=== PATIENT | male | born 1980 | race Caucasian/White ===

== ENCOUNTER 2021-11-28 12:58 | Emergency (ER) | payer MEDICAID, SELFPAY | END 2021-11-28 14:06 | disposition left against medical advice (07) | PROVIDERS: Emergency Provider Emergency Medicine | DX: F99 Mental disorder, not otherwise specified (principal) ==

== ENCOUNTER 2021-11-28 14:56 | Inpatient (IN) | payer MEDICAID, OTHER, SELFPAY ==
[2021-11-28 15:14] VITALS: BP 100/62; PULSE 93; RESP 18; TEMP 36.1; O2SAT 98; BMI 29.0
--- NOTE | 2021-11-28 15:41 | ED_ITS ---
HPI - Psych General Chief Complaint: Psychiatric Symptoms <Cinda Vines NP - Last Filed: 11/28/21 17:16> Stated Complaint: sucidal and needs meds <Cinda Vines NP - Last Filed: 11/28/21 17:16> Time Seen by Provider: 11/28/21 15:26 <Cinda Vines NP - Last Filed: 11/28/21 17:16> Source: patient <Cinda Vines NP - Last Filed: 11/28/21 17:16> Mode of arrival: ambulatory <Cinda Vines NP - Last Filed: 11/28/21 17:16> Limitations: no limitations <Cinda Vines NP - Last Filed: 11/28/21 17:16> History of Present Illness HPI Narrative: 41-year-old male with a history of PTSD, substance abuse, anxiety, depression here with reports of suicidal thoughts for the last 1 month. Patient denies any current plans. No homicidal ideations, hallucinations. Patient tells me that he has been binge drinking for the last 1 month drinking about 2-3 pt of hard liquor daily. His last drink was just prior to arrival. Patient also intermittently smoking crack. He denies any additional substance use. He is currently on methadone 120 mg daily and received his dose this morning. No physical complaints. Patient received the Ed Ed vaccine for COVID. <Cinda Vines NP - Last Filed: 11/28/21 17:16> Related Data Home Medications: Home Medications Medication Instructions Recorded Confirmed bupropion HCl 150 mg tablet,12 hr 150 mg PO BID 11/28/21 11/28/21 sustained-release clonidine HCl 0.2 mg tablet 0.2 mg PO BID 11/28/21 11/28/21 folic acid 1 mg tablet 1 mg PO DAILY 11/28/21 11/28/21 gabapentin 400 mg capsule 400 mg PO BEDTIME 11/28/21 11/28/21 pantoprazole 40 mg tablet,delayed 1 tab PO DAILY 11/28/21 11/28/21 release quetiapine 200 mg tablet 200 mg PO BEDTIME 11/28/21 11/28/21 thiamine HCl (vitamin B1) 100 mg 100 mg PO DAILY 11/28/21 11/28/21 tablet (Vitamin B-1) <Cinda Vines NP - Last Filed: 11/28/21 17:16> Allergies/Adverse Reactions: Allergies Allergy/AdvReac Type Severity Reaction Status Date / Time No Known Allergies Allergy Verified 11/28/21 20:05 <Cinda Vines NP - Last Filed: 11/28/21 17:16> Review of Systems Verdana 4l Review of Systems: Verdana 4d Yes all other systems are reviewed and are negative Verdana 4Il <Cnida Vines NP - Last Filed: 11/28/21 17:16> Verdana 4d Verdana 4l Constitutional: Verdana 4d Verdana 4d Constitutional: Verdana 4d Reports no additional constitutional complaints, Denies body ache(s), Denies chills, Denies fever(s), Denies headache(s) and Denies weakness Verdana 4Il <Cinda Vines NP - Last Filed: 11/28/21 17:16> VerdanaVerdana 4d Eyes: Eyes: Reports no additional eye complaints and Denies change in vision <Cinda Vines NP - Last Filed: 11/28/21 17:16> ENT: Reports system reviewed and no additional complaints, except as documented, Denies dizziness, Denies headache(s), Denies nasal congestion, Denies nasal discharge and Denies neck pain <Cinda Vines NP - Last Filed: 11/28/21 17:16> Cardiovascular: Cardiovascular: Reports no additional cardiovascular complaints, Denies chest pain, Denies leg edema and Denies dyspnea <Cinda Vines NP - Last Filed: 11/28/21 17:16> Respiratory: Respiratory: Reports no additional respiratory complaints, Denies cough and Denies dyspnea <Cinda Vines NP - Last Filed: 11/28/21 17:16> Gastrointestinal: Gastrointestinal: Reports no additional gastrointestinal complaints, Denies abdominal pain, Denies diarrhea, Denies nausea and Denies vomiting <Cinda Vines NP - Last Filed: 11/28/21 17:16> Genitourinary: Genitourinary: Denies urinary incontinence <Cinda Vines NP - Last Filed: 11/28/21 17:16> Musculoskeletal: Musculoskeletal: Reports no additional musculoskeletal complaints, Denies back pain, Denies arthralgias, Denies joint swelling, Denies neck pain, Denies numbness and Denies tingling <Cinda Vines NP - Last Filed: 11/28/21 17:16> Integumentary/Breasts: Skin/Breast: Reports system reviewed and no additional complaints, except as docu and Denies rash <Cnida Vines NP - Last Filed: 11/28/21 17:16> Neurologic: Reports system reviewed and no additional complaints, except as documented, Denies Abnormal speech present, Denies dizziness, Denies headache(s), Denies n umbness, Denies tingling and Denies weakness <Cinda Vines NP - Last Filed: 11/28/21 17:16> Psychiatric: Psychiatric: Reports depression and Reports suicidal ideation <Cinda Vines NP - Last Filed: 11/28/21 17:16> [facility] Past Medical History Attestation statement: The following information was validated with the patient. <Cinda Vines NP - Last Filed: 11/28/21 17:16> Source: old records reviewed and nursing notes reviewed <Cinda Vines NP - Last Filed: 11/28/21 17:16> Social History Social History: Social History Advance Directives: No Advance Directives Information Provided: No <Cinda Vines NP - Last Filed: 11/28/21 17:16> Physical Exam Verdana 4l Vital Signs: Verdana 4d Verdana 4d Vital Signs: Verdana 4d Verdana 4Bd Last Vital Signs Verdana 4d Energy Systems Engineer New 4d Energy Systems Engineer New 4d Temp 97.4 F 11/28/21 19:26 Energy Systems Engineer New 4d Pulse 67 11/28/21 19:26 Energy Systems Engineer New 4d Resp 16 11/28/21 19:26 BP 89/53 L 11/28/21 19:26 Pulse Ox 98 11/28/21 19:26 BMI result Body Mass Index 29.0 <Cinda Vines NP - Last Filed: 11/28/21 17:16> Vital Signs: Last Vital Signs Temp 97.4 F 11/28/21 19:26 Pulse 67 11/28/21 19:26 Resp 16 11/28/21 19:26 BP 89/53 L 11/28/21 19:26 Pulse Ox 98 11/28/21 19:26 BMI result Body Mass Index 29.0 <LIZZETTE Jacinto - Last Filed: 11/28/21 21:50> Const: General: cooperative, healthy appearing, comfortable and no acute distress <Cinda Vines NP - Last Filed: 11/28/21 17:16> Orientation/consciousness: patient oriented x3 <Cinda Vines NP - Last Filed: 11/28/21 17:16> Limitations: no limitations <Cinda Vines NP - Last Filed: 11/28/21 17:16> HENMT: Head: Yes normal to inspection <Cinda Vines NP - Last Filed: 11/28/21 17:16> Ears: hearing grossly normal bilaterally <Cinda Vines NP - Last Filed: 11/28/21 17:16> General nose exam: Normal external nose present <Cinda Vines NP - Last Filed: 11/28/21 17:16> Face and sinus: Yes normal facial exam <Cinda Vines NP - Last Filed: 11/28/21 17:16> Mouth: Normal oral and palatal mucosa present <Cinda Vines NP - Last Filed: 11/28/21 17:16> Throat: Yes posterior oropharynx normal <Cinda Vines NP - Last Filed: 11/28/21 17:16> Eyes: General: appearance normal, both eyes and all related structures <Cinda Vines NP - Last Filed: 11/28/21 17:16> Pupils: Equal, round and reactive pupils present <Cinda Vines NP - Last Filed: 11/28/21 17:16> Neck: Neck: Yes normal visual inspection <Cinda Vines NP - Last Filed: 11/28/21 17:16> Chest: Chest palpation & inspection: normal inspection of the chest <Cinda Vines NP - Last Filed: 11/28/21 17:16> Resp: Effort & Inspection: normal respiratory effort <Cinda Vines NP - Last Filed: 11/28/21 17:16> Auscultation: clear to auscultation bilaterally <Cinda Vines STRAIGHTENER HAND - Last Filed: 11/28/21 17:16> Cardio: Rate: regular rate <Cinda Vines STRAIGHTENER HAND - Last Filed: 11/28/21 17:16> Rhythm: regular rhythm <Cinda Vines NP - Last Filed: 11/28/21 17:16> Peripheral pulses: Peripheral pulses 2+ throughout <Cinda Vines NP - Last Filed: 11/28/21 17:16> GI: Inspection: Yes normal to inspection <Cinda Vines NP - Last Filed: 11/28/21 17:16> Palpation (GI): Soft to palpation and nontender <Cinda Vines STRAIGHTENER HAND - Last Filed: 11/28/21 17:16> Auscultation: normal bowel sounds <Cinda Vines NP - Last Filed: 11/28/21 17:16> Back/Spine/Pelvis: Thoracic/Lumbar Spine: thoracic and lumbar spine normal to inspection <Cinda Vines STRAIGHTENER HAND - Last Filed: 11/28/21 17:16> Skin: General skin exam: no rashes or lesions noted <Cinda Vines NP - Last Filed: 11/28/21 17:16> Neuro: General: patient oriented x3, no focal motor deficits and normal sensation to monofilament <Cinda Vines NP - Last Filed: 11/28/21 17:16> Cranial nerves: Yes CN's II-XII intact bilaterally and Yes Equal, round and reactive pupils present <Cinda Vines NP - Last Filed: 11/28/21 17:16> Cognition (Neuro): normal cognition <Cinda Vines NP - Last Filed: 11/28/21 17:16> Speech: No Abnormal speech present <Cinda Vines NP - Last Filed: 11/28/21 17:16> Gait exam (Neuro): Normal gait present <Cinda Vines NP - Last Filed: 11/28/21 17:16> Motor exam (neuro): 5/5 motor strength present throughout <Cinda Vines NP - Last Filed: 11/28/21 17:16> Extrem: General: Yes normal to inspection <Cinda Vines NP - Last Filed: 11/28/21 17:16> Course Course Course Narrative: 41-year-old male with a history of PTSD, anxiety, depression, substance abuse here with reports of suicidal thoughts without a plan. Patient has also been binge drinking for the last 1 month and intermittently using crack cocaine. No physical complaints. No concern for acute ingestion or trauma. Will check labs, drug screen, COVID screen. Obtain BHN evaluation 1800-Sign out to night team pending BHN evaluation. <Cinda Vines NP - Last Filed: 11/28/21 17:16> Reevaluation(s) Reevaluation #1: Patient was evaluated by [facility] and is now Section 12 inpatient bed search <LIZZETTE Jacinto - Last Filed: 11/28/21 21:50> Time: 21:50 <LIZZETTE Jacinto - Last Filed: 11/28/21 21:50> MDM - Psych Medical Records Attestation: I reviewed the patient's medical records. <Cinda Vines NP - Last Filed: 11/28/21 17:16> Lab Data Attestation: I reviewed the patient's lab results. <Cinda Vines NP - Last Filed: 11/28/21 17:16> Result diagrams: : 11/28/21 16:15 11/28/21 16:15 <Cinda Vines NP - Last Filed: 11/28/21 17:16> Labs: Lab Results 11/28/21 11/28/21 11/28/21 Range/Units 15:31 15:31 16:15 WBC 5.4 (4.8-10.8) X10*3/uL RBC 4.74 (4.60-5.80) X10*6/uL Hgb 14.6 (14.0-18.0) g/dl Hct 42.6 (42.0-52.0) % MCV 89.9 (80.0-98.0) fL MCH 30.8 (27.0-33.0) pg MCHC 34.3 (31.0-36.0) g/dl RDW 13.3 (11.0-16.0) % Plt Count 130 L (160-400) X10*3/uL MPV 11.2 (9.4-12.4) fL Immature Gran % 0.2 (0.0-0.4) % (Auto) Neut % (Auto) 51.1 (45-73) % Lymph % (Auto) 38.1 (20-40) % [place] % (Auto) 6.5 (2-11) % Eos % (Auto) 3.9 (0-4) % Baso % (Auto) 0.2 (0-2) % Lymph # (Auto) 2.1 (1.2-4.9) X10*3/uL [place] # (Auto) 0.4 (0.1-1.2) X10*3/uL Eos # (Auto) 0.2 (0.0-0.4) X10*3/uL Baso # (Auto) 0.0 (0.0-0.2) X10*3/uL Abs Immat Gran (auto) 0.01 (0.00-0.03) X10*3/uL Absolute Neuts (auto) 2.8 (2.0-8.3) x10*3/uL Absolute Nucleated 0.000 (0.0-0.012) RBC X10*3/uL Nucleated RBC % 0.0 (0.0-0.2) /100WBC (auto) Sodium (135-145) mmol/L Potassium (3.3-5.1) mmol/L Chloride (96-108) mmol/L Carbon Dioxide (22-29) mmol/L Anion Gap (12-20) BUN (9-16) mg/dL Creatinine (0.5-1.4) mg/dL Estim Creat Clear Calc Estimated GFR Random Glucose (60-115) mg/dL Calcium (8.4-10.2) mg/dL Total Bilirubin (0.0-1.0) mg/dL Direct Bilirubin (0.0-0.5) mg/dL AST (5-37) U/L ALT (0-40) U/L Alkaline Phosphatase (39-117) U/L Total Protein (6.5-8.0) g/dL Albumin (3.5-5.0) g/dL Urine Opiates Screen Not Detected (Not Detect) Urine Fentanyl Screen Not Detected (Not Detect) Ur Barbiturates Not Detected (Not Detect) Screen Ur Phencyclidine Scrn Not Detected (Not Detect) Ur Amphetamines Not Detected (Not Detect) Screen U Benzodiazepines Not Detected (Not Detect) Scrn Urine Cocaine Screen POSITIVE H (Not Detect) U Marijuana (THC) Not Detected (Not Detect) Screen Ethyl Alcohol mg/dL COVID-19 (HONG) Negative (Negative) COVID-19 Clin Com See Note 11/28/21 11/28/21 Range/Units 16:15 16:15 WBC (4.8-10.8) X10*3/uL RBC (4.60-5.80) X10*6/uL Hgb (14.0-18.0) g/dl Hct (42.0-52.0) % MCV (80.0-98.0) fL MCH (27.0-33.0) pg MCHC (31.0-36.0) g/dl RDW (11.0-16.0) % Plt Count (160-400) X10*3/uL MPV (9.4-12.4) fL Immature Gran % (Auto) (0.0-0.4) % Neut % (Auto) (45-73) % Lymph % (Auto) (20-40) % [place] % (Auto) (2-11) % Eos % (Auto) (0-4) % Baso % (Auto) (0-2) % Lymph # (Auto) (1.2-4.9) X10*3/uL [place] # (Auto) (0.1-1.2) X10*3/uL Eos # (Auto) (0.0-0.4) X10*3/uL Baso # (Auto) (0.0-0.2) X10*3/uL Abs Immat Gran (auto) (0.00-0.03) X10*3/uL Absolute Neuts (auto) (2.0-8.3) x10*3/uL Absolute Nucleated RBC (0.0-0.012) X10*3/uL Nucleated RBC % (auto) (0.0-0.2) /100WBC Sodium 140 (135-145) mmol/L Potassium 4.3 (3.3-5.1) mmol/L Chloride 109 H (96-108) mmol/L Carbon Dioxide 21 L (22-29) mmol/L Anion Gap 14 (12-20) BUN 10 (9-16) mg/dL Creatinine 1.13 (0.5-1.4) mg/dL Estim Creat Clear Calc 87.1 Estimated GFR > 60 Random Glucose 89 (60-115) mg/dL Calcium 9.2 (8.4-10.2) mg/dL Total Bilirubin 0.6 (0.0-1.0) mg/dL Direct Bilirubin 0.3 (0.0-0.5) mg/dL AST 118 H (5-37) U/L ALT 150 H (0-40) U/L Alkaline Phosphatase 94 (39-117) U/L Total Protein 8.4 H (6.5-8.0) g/dL Albumin 4.1 (3.5-5.0) g/dL Urine Opiates Screen (Not Detect) Urine Fentanyl Screen (Not Detect) Ur Barbiturates Screen (Not Detect) Ur Phencyclidine Scrn (Not Detect) Ur Amphetamines Screen (Not Detect) U Benzodiazepines Scrn (Not Detect) Urine Cocaine Screen (Not Detect) U Marijuana (THC) Screen (Not Detect) Ethyl Alcohol 163 mg/dL COVID-19 (HONG) (Negative) COVID-19 Clin Com <Cinda Vines NP - Last Filed: 11/28/21 17:16> Lab Results 11/28/21 11/28/21 11/28/21 Range/Units 15:31 15:31 16:15 WBC 5.4 (4.8-10.8) X10*3/uL RBC 4.74 (4.60-5.80) X10*6/uL Hgb 14.6 (14.0-18.0) g/dl Hct 42.6 (42.0-52.0) % MCV 89.9 (80.0-98.0) fL MCH 30.8 (27.0-33.0) pg MCHC 34.3 (31.0-36.0) g/dl RDW 13.3 (11.0-16.0) % Plt Count 130 L (160-400) X10*3/uL MPV 11.2 (9.4-12.4) fL Immature Gran % 0.2 (0.0-0.4) % (Auto) Neut % (Auto) 51.1 (45-73) % Lymph % (Auto) 38.1 (20-40) % [place] % (Auto) 6.5 (2-11) % Eos % (Auto) 3.9 (0-4) % Baso % (Auto) 0.2 (0-2) % Lymph # (Auto) 2.1 (1.2-4.9) X10*3/uL [place] # (Auto) 0.4 (0.1-1.2) X10*3/uL Eos # (Auto) 0.2 (0.0-0.4) X10*3/uL Baso # (Auto) 0.0 (0.0-0.2) X10*3/uL Abs Immat Gran (auto) 0.01 (0.00-0.03) X10*3/uL Absolute Neuts (auto) 2.8 (2.0-8.3) x10*3/uL Absolute Nucleated 0.000 (0.0-0.012) RBC X10*3/uL Nucleated RBC % 0.0 (0.0-0.2) /100WBC (auto) Sodium (135-145) mmol/L Potassium (3.3-5.1) mmol/L Chloride (96-108) mmol/L Carbon Dioxide (22-29) mmol/L Anion Gap (12-20) BUN (9-16) mg/dL Creatinine (0.5-1.4) mg/dL Estim Creat Clear Calc Estimated GFR Random Glucose (60-115) mg/dL Calcium (8.4-10.2) mg/dL Total Bilirubin (0.0-1.0) mg/dL Direct Bilirubin (0.0-0.5) mg/dL AST (5-37) U/L ALT (0-40) U/L Alkaline Phosphatase (39-117) U/L Total Protein (6.5-8.0) g/dL Albumin (3.5-5.0) g/dL Urine Opiates Screen Not Detected (Not Detect) Urine Fentanyl Screen Not Detected (Not Detect) Ur Barbiturates Not Detected (Not Detect) Screen Ur Phencyclidine Scrn Not Detected (Not Detect) Ur Amphetamines Not Detected (Not Detect) Screen U Benzodiazepines Not Detected (Not Detect) Scrn Urine Cocaine Screen POSITIVE H (Not Detect) U Marijuana (THC) Not Detected (Not Detect) Screen Ethyl Alcohol mg/dL COVID-19 (HONG) Negative (Negative) COVID-19 Clin Com See Note 11/28/21 11/28/21 Range/Units 16:15 16:15 WBC (4.8-10.8) X10*3/uL RBC (4.60-5.80) X10*6/uL Hgb (14.0-18.0) g/dl Hct (42.0-52.0) % MCV (80.0-98.0) fL MCH (27.0-33.0) pg MCHC (31.0-36.0) g/dl RDW (11.0-16.0) % Plt Count (160-400) X10*3/uL MPV (9.4-12.4) fL Immature Gran % (Auto) (0.0-0.4) % Neut % (Auto) (45-73) % Lymph % (Auto) (20-40) % [place] % (Auto) (2-11) % Eos % (Auto) (0-4) % Baso % (Auto) (0-2) % Lymph # (Auto) (1.2-4.9) X10*3/uL [place] # (Auto) (0.1-1.2) X10*3/uL Eos # (Auto) (0.0-0.4) X10*3/uL Baso # (Auto) (0.0-0.2) X10*3/uL Abs Immat Gran (auto) (0.00-0.03) X10*3/uL Absolute Neuts (auto) (2.0-8.3) x10*3/uL Absolute Nucleated RBC (0.0-0.012) X10*3/uL Nucleated RBC % (auto) (0.0-0.2) /100WBC Sodium 140 (135-145) mmol/L Potassium 4.3 (3.3-5.1) mmol/L Chloride 109 H (96-108) mmol/L Carbon Dioxide 21 L (22-29) mmol/L Anion Gap 14 (12-20) BUN 10 (9-16) mg/dL Creatinine 1.13 (0.5-1.4) mg/dL Estim Creat Clear Calc 87.1 Estimated GFR > 60 Random Glucose 89 (60-115) mg/dL Calcium 9.2 (8.4-10.2) mg/dL Total Bilirubin 0.6 (0.0-1.0) mg/dL Direct Bilirubin 0.3 (0.0-0.5) mg/dL AST 118 H (5-37) U/L ALT 150 H (0-40) U/L Alkaline Phosphatase 94 (39-117) U/L Total Protein 8.4 H (6.5-8.0) g/dL Albumin 4.1 (3.5-5.0) g/dL Urine Opiates Screen (Not Detect) Urine Fentanyl Screen (Not Detect) Ur Barbiturates Screen (Not Detect) Ur Phencyclidine Scrn (Not Detect) Ur Amphetamines Screen (Not Detect) U Benzodiazepines Scrn (Not Detect) Urine Cocaine Screen (Not Detect) U Marijuana (THC) Screen (Not Detect) Ethyl Alcohol 163 mg/dL COVID-19 (HONG) (Negative) COVID-19 Clin Com <LIZZETTE Jacinto - Last Filed: 11/28/21 21:50> Discharge Plan Discharge Clinical Impression: Suicidal ideation <Cinda Vines NP - Last Filed: 11/28/21 17:16> Patient Disposition: Still a Patient <Cinda Vines NP - Last Filed: 11/28/21 17:16> Prescriptions: No Action bupropion HCl 150 mg tablet sustained-release 12 hr 150 mg PO BID 0RF gabapentin 400 mg capsule 400 mg PO BEDTIME 0RF quetiapine 200 mg tablet 200 mg PO BEDTIME 0RF thiamine HCl (vitamin B1) [Vitamin B-1] 100 mg tablet 100 mg PO DAILY 0RF clonidine HCl 0.2 mg tablet 0.2 mg PO BID 0RF pantoprazole 40 mg tablet,delayed release (DR/EC) 1 tab PO DAILY 0RF folic acid 1 mg tablet 1 mg PO DAILY 0RF <Cinda Vines, STRAIGHTENER HAND - Last Filed: 11/28/21 17:16>
[2021-11-28 15:53] LABS: Amphetamine Screen Urine Not Detected (Not Detect); Barbiturates, Urine Not Detected (Not Detect); Benzodiazepines Screen Urine Not Detected (Not Detect); Cannabinoid Screen Urine Not Detected (Not Detect); Cocaine Screen Urine POSITIVE (Not Detect); Fentanyl, urine Not Detected (Not Detect); Opiate Screen Urine Not Detected (Not Detect); Phencyclidine Screen Urine Not Detected (Not Detect)
[2021-11-28 15:56] LABS: COVID-19 Test Negative (Negative)
[2021-11-28 16:29] LABS: Imm Gran Abs Auto 0.01 X10*3/uL (0.00-0.03); Imm Gran Pct Auto 0.2 % (0.0-0.4); Monocytes Percent Auto 6.5 % (2-11); PLT CLUMP 1; Red Cell Distribution Width 13.3 % (11.0-16.0); SCAN SMEAR FLAG 1
[2021-11-28 16:31] LABS: Basophils Percent Auto 0.2 % (0-2); Eosinophils Absolute Auto 0.2 X10*3/uL (0.0-0.4); Eosinophils Percent Auto 3.9 % (0-4); Hematocrit 42.6 % (42.0-52.0); Hemoglobin 14.6 g/dl (14.0-18.0); Lymphocytes Absolute Auto 2.1 X10*3/uL (1.2-4.9); Lymphocytes Percent Auto 38.1 % (20-40); Mean Corpuscular HGB Conc 34.3 g/dl (31.0-36.0); Mean Corpuscular Hemoglobin 30.8 pg (27.0-33.0); Mean Corpuscular Volume 89.9 fL (80.0-98.0); Mean Platelet Volume 11.2 fL (9.4-12.4); Monocytes Absolute Auto 0.4 X10*3/uL (0.1-1.2); Neutrophils Absolute Auto 2.8 x10*3/uL (2.0-8.3); Neutrophils Percent Auto 51.1 % (45-73); Red Blood Count 4.74 X10*6/uL (4.60-5.80)
[2021-11-28 16:37] LABS: Ethanol 163 mg/dL
[2021-11-28 16:42] LABS: Alanine Aminotransferase 150 U/L (0-40); Albumin Level 4.1 g/dL (3.5-5.0); Alkaline Phosphatase 94 U/L (39-117); Anion Gap 14 (12-20); Aspartate Amino Transferase 118 U/L (5-37); Bilirubin Direct 0.3 mg/dL (0.0-0.5); Bilirubin Total 0.6 mg/dL (0.0-1.0); Blood Urea Nitrogen 10 mg/dL (9-16); Calcium 9.2 mg/dL (8.4-10.2); Carbon Dioxide 21 mmol/L (22-29); Chloride 109 mmol/L (96-108); Creatinine Clr Calc Pharmacy 87.1; Estimated Glomerular Filt Rate > 60; Glucose Random 89 mg/dL (60-115); Potassium 4.3 mmol/L (3.3-5.1); Sodium 140 mmol/L (135-145); Total Protein 8.4 g/dL (6.5-8.0)
[2021-11-28 16:49] LABS: MANUAL DIFF FLAG NO; Platelet Count 130 X10*3/uL (160-400); White Blood Count 5.4 X10*3/uL (4.8-10.8)
[2021-11-28 19:26] VITALS: BP 89/53; PULSE 67; RESP 16; TEMP 36.3; O2SAT 98
[2021-11-28 23:31] VITALS: BP 81/60; PULSE 77; RESP 16; O2SAT 97
[2021-11-28 23:41] VITALS: BP 98/60; PULSE 68
[2021-11-28] MEDS: LORazepam 1 MG TABLET PO (23:48)
--- NOTE | 2021-11-29 | ECG_ITS ---
Test Reason : medical clearance Blood Pressure : / mmHG Vent. Rate : 050 BPM Atrial Rate : 050 BPM P-R Int : 162 ms QRS Dur : 120 ms QT Int : 450 ms P-R-T Axes : 065 -02 020 degrees QTc Int : 410 ms Sinus bradycardia Non-specific intra-ventricular conduction delay Borderline ECG No previous ECGs available Referred By: Nayan Kebede Electronically Signed By:KATELYNN LEMOS
[2021-11-29 01:18] VITALS: BP 102/58; PULSE 70; RESP 18
[2021-11-29] MEDS: LORazepam 1 MG TABLET PO ×3 (01:51→13:12)
--- NOTE | 2021-11-29 05:22 | PC.NURSE ---
Patient is currently sleeping, sleeping since 129, no distress observed/reported, Ativan 1 mg administered x2 with + effect, behavior appropriate and cooperative, medication compliant, patient's disposition per [facility] is section 12 inpatient bed search, will continue to monitor.
--- NOTE | 2021-11-29 07:08 | PC.NURSE ---
patient appears to remain asleep at present respirations appear to be unlabored patient appears in no distress
[2021-11-29 08:02] VITALS: BP 113/81; PULSE 70; RESP 17; TEMP 36.6; O2SAT 98
[2021-11-29] MEDS: buPROPion HCl XL 300 MG TAB.ER.24H PO (11:01)
[2021-11-29] MEDS: cloNIDine HCL 0.2 MG TABLET PO ×2 (11:01→21:01)
[2021-11-29] MEDS: Thiamine HCL 100 MG TABLET PO (11:01)
[2021-11-29] MEDS: Gabapentin 400 MG CAPSULE 800 MG PO ×3 (11:01→21:02)
[2021-11-29] MEDS: methADONE HCl 20 MG/2 ML ORAL.CONC 120 MG PO (11:01)
[2021-11-29 11:16] LABS: COVID-19 Test Negative (Negative)
[2021-11-29] MEDS: Ibuprofen 600 MG TABLET PO (13:12)
--- NOTE | 2021-11-29 17:12 | P.HPPS_ITS ---
HPI Date of Service: 11/29/21 Chief Complaint: SI,etoh use DO Sources of Information: patient interviewed, chart reviewed and crisis/core team assessment reviewed HPI Subjective Notes: Lira Warning and Conditional Voluntary Healthcare Proxy: No Guardianship: No Medical Problems Affecting Mental Status: No Narrative: Norbert is a 41 y.o. male who carries a dx of PTSD, Alcohol Use disorder, cocaine/ stimulant use disorder, IWONA, and MDD, recurrent. He presented to [facility] on 11/28/21 due to SI x 1 month with plan to jump into traffic and binge drinking x 1 month. Patient also intermittently smoking crack cocaine. Pt is on methadone maintenance 120 mg daily and received his dose prior to arrival to [facility]. Otherwise, pt has been non-adherent with psychiatric medications.? I evaluated the pt this morning and upon interview he reports he likes his current medication regimen and denies experiencing seizures on wellbutrin. However, he does reports a hx of withdrawal seizures from alcohol, last 7-8 mo ago. Says his medications ?are helping for meds as long as I stay on them.? He endorses sx of withdrawal, i.e. nausea. Says his sleep has been ?horrible,? however this is a longstanding issue, has hx of nightmares. Energy is low. Mood is ?fine.? He continues to endorse passive SI, but denies plan or intent upon inquiry today. Somewhat eating. Was taking ensure. No psych providers, started using. 18 mo sober, 21 years ago. I need sleep. Feeling safe. Denies A/VH.? Past Psychiatric History: -Hx of IPLOC at [facility] in [place] 6 months ago due to SI. Reports hx of SA by cutting wrist. -Past meds: vyvanse Medical Evaluation Reviewed: Yes PMFSH Social History: -Currently homeless Substance History: -ETOH: reports he has been drinking 2-3 pints of hard liquor daily (at another time stated he was drinking 20 nips daily), last drink prior to arrival to [facility] on 11/28/21. BAL 163. -Cocaine: last used half a gram daily x one month and smoking crack cocaine. -Crystal Meth: used a ?quarter? Trauma History: -Per chart, hx of PTSD from incarceration. Diagnostics Vital Signs (24Hr): Vital Signs - 24 hr 11/28/21 19:26 11/28/21 23:31 11/28/21 23:41 Temperature 97.4 F Pulse Rate 67 77 68 Respiratory Rate 16 16 Blood Pressure 89/53 L 81/60 L 98/60 Pulse Oximetry 98 97 11/29/21 01:18 11/29/21 08:02 Temperature 97.9 F Pulse Rate 70 70 Respiratory Rate 18 17 Blood Pressure 102/58 L 113/81 Pulse Oximetry 98 BMI result Verdana 4 Body Mass Index Verdana 4 29.0 Verdana 4 Verdana 4 Labs Results: 11/28/21 16:15 11/28/21 16:15 Labs: Laboratory Results - last 48 hr 11/28/21 11/28/21 11/28/21 15:31 15:31 16:15 WBC 5.4 RBC 4.74 Hgb 14.6 Hct 42.6 MCV 89.9 MCH 30.8 MCHC 34.3 RDW 13.3 Plt Count 130 L MPV 11.2 Immature Gran % (Auto) 0.2 Neut % (Auto) 51.1 Lymph % (Auto) 38.1 [place] % (Auto) 6.5 Eos % (Auto) 3.9 Baso % (Auto) 0.2 Lymph # (Auto) 2.1 [place] # (Auto) 0.4 Eos # (Auto) 0.2 Baso # (Auto) 0.0 Abs Immat Gran (auto) 0.01 Absolute Neuts (auto) 2.8 Absolute Nucleated RBC 0.000 Nucleated RBC % (auto) 0.0 Sodium Potassium Chloride Carbon Dioxide Anion Gap BUN Creatinine Estim Creat Clear Calc Estimated GFR Random Glucose Calcium Total Bilirubin Direct Bilirubin AST ALT Alkaline Phosphatase Total Protein Albumin Urine Opiates Screen Not Detected Urine Fentanyl Screen Not Detected Ur Barbiturates Screen Not Detected Ur Phencyclidine Scrn Not Detected Ur Amphetamines Screen Not Detected U Benzodiazepines Scrn Not Detected Urine Cocaine Screen POSITIVE H U Marijuana (THC) Screen Not Detected Ethyl Alcohol COVID-19 (HONG) Negative COVID-19 Clin Com See Note 11/28/21 11/28/21 11/29/21 16:15 16:15 10:52 WBC RBC Hgb Hct MCV MCH MCHC RDW Plt Count MPV Immature Gran % (Auto) Neut % (Auto) Lymph % (Auto) [place] % (Auto) Eos % (Auto) Baso % (Auto) Lymph # (Auto) [place] # (Auto) Eos # (Auto) Baso # (Auto) Abs Immat Gran (auto) Absolute Neuts (auto) Absolute Nucleated RBC Nucleated RBC % (auto) Sodium 140 Potassium 4.3 Chloride 109 H Carbon Dioxide 21 L Anion Gap 14 BUN 10 Creatinine 1.13 Estim Creat Clear Calc 87.1 Estimated GFR > 60 Random Glucose 89 Calcium 9.2 Total Bilirubin 0.6 Direct Bilirubin 0.3 AST 118 H ALT 150 H Alkaline Phosphatase 94 Total Protein 8.4 H Albumin 4.1 Urine Opiates Screen Urine Fentanyl Screen Ur Barbiturates Screen Ur Phencyclidine Scrn Ur Amphetamines Screen U Benzodiazepines Scrn Urine Cocaine Screen U Marijuana (THC) Screen Ethyl Alcohol 163 COVID-19 (HONG) Negative COVID-19 Clin Com See Note Meds/Allergies Meds Home Medications Acetaminophen (Acetaminophen 325 Mg Tablet) 650 mg PO Q6H PRN PRN Reason: Headache/Pain Mild Scale (1-3) Al Hydroxide/Mg Hydroxide (Magnesium Hydrox/Alum Hydrox 30 Ml Oral.Susp) 30 ml PO Q6H PRN PRN Reason: Heartburn/Nausea Bupropion HCl (Bupropion Hcl Xl 300 Mg Tab.Er.24h) 300 mg PO DAILY [facility] Last Admin: 11/30/21 08:02 Dose: 300 mg Documented by: Clonidine HCl (Clonidine Hcl 0.2 Mg Tablet) 0.2 mg PO BID [facility]; Protocol Last Admin: 12/01/21 00:41 Dose: 0.2 mg Documented by: Gabapentin (Gabapentin 400 Mg Capsule) 800 mg PO TID [facility] Last Admin: 12/01/21 00:41 Dose: 800 mg Documented by: Hydroxyzine HCl (Hydroxyzine Hcl 25 Mg Tablet) 25 mg PO Q6H PRN PRN Reason: Anxiety Lorazepam (Lorazepam 1 Mg Tablet) 1 mg PO Q6H PRN PRN Reason: Alcohol Withdrawal Last Admin: 12/01/21 04:38 Dose: 1 mg Documented by: Magnesium Hydroxide (Milk Of Magnesia 30 Ml Oral.Susp) 30 ml PO DAILY PRN PRN Reason: Constipation Methadone HCl (Methadone Hcl 20 Mg/2 Ml Oral.Conc) 120 mg PO DAILY [facility] Last Admin: 11/30/21 08:02 Dose: 120 mg Documented by: Ondansetron HCl (Ondansetron Odt 8 Mg Tab.Rapdis) 8 mg TRANSLINGU Q8H PRN PRN Reason: nausea Quetiapine Fumarate (Quetiapine Fumarate 200 Mg Tablet) 200 mg PO BEDTIME [facility] Last Admin: 12/01/21 00:40 Dose: 200 mg Documented by: Thiamine HCl (Thiamine Hcl 100 Mg Tablet) 100 mg PO DAILY [facility] Last Admin: 11/30/21 08:02 Dose: 100 mg Documented by: Trazodone HCl (Trazodone Hcl 50 Mg Tablet) 50 mg PO BEDTIME PRN PRN Reason: Insomnia Last Admin: 11/29/21 21:00 Dose: 50 mg Documented by: Allergies Allergies Allergy/AdvReac Type Severity Reaction Status Date / Time No Known Allergies Allergy Verified 11/28/21 20:05 Mental Status Exam Mental Status Exam Narrative: A&O. Overweight, in hospital attire. Poor eye contact, inattentive. No Tics or Tremors. No abnormal involuntary movements. Calm, cooperative, somewhat diffi cult to engage in meaningful conversation, as pt is in withdrawal and somnolent. Non-pressured speech, spontaneous with regular rate and rhythm, normal volume and prosody. No prolonged speech latency or dysarthria. Mood is ?depressed,? affect is blunted. Endorses SI without plan or intent, denies SIB/HI upon inquiry. Denies A/VH or delusional thought content. Thoughts are concrete, linear. No known cognitive or memory impairment. Insight/ Judgment limited. Assessment & Plan Assessment & Plan (1) Alcohol use disorder, moderate, dependence: Status: Acute Code(s): F10.20 - Alcohol dependence, uncomplicated (2) Cocaine use disorder, moderate, dependence: Status: Acute Code(s): F14.20 - Cocaine dependence, uncomplicated (3) MDD (major depressive disorder), recurrent episode, moderate: Status: Acute Code(s): F33.1 - Major depressive disorder, recurrent, moderate Plan Norbert is a 41 y.o. male who carries a dx of PTSD, Alcohol Use disorder, cocaine/ stimulant use disorder, IWONA, and MDD, recurrent. He recently has been abusing crystal meth, crack cocaine, and alcohol. Pt is in withdrawal, 2nd day, has sx of nausea and poor sleep. He re-started OP psych med regimen in the ED and reports positive benefit on medication. Plan: Continue on alcohol withdrawal protocol, 2nd day, will change ativan order to 2 mg Q6H for CIWA >8. Will start zofran PRN for nausea. He also asks for ensure with his meals. Pt asks for an increase in wellbutrin, as he reports positive benefit on this medication for sx of depression (on 150 mg SR BID at home) and denies hx of seizures on it. Will increase to 300 mg XL QAM and 150 mg XL Qnoon, as pt reports he does better with BID dosing.? Monitor response to medications. Monitor for safety in the milieu. Discharge on stabilization. Patient seen. Chart reviewed. Discussed with team. Obtain collateral contact info?as needed Reason for continued inpatient stay Substantial Risk for: harm to self, rapid decompensation and med/psych decompen sation
[2021-11-29] MEDS: LORazepam 1 MG TABLET 2 MG PO (17:36)
[2021-11-29 21:00] VITALS: BP 120/60; PULSE 75; RESP 14; TEMP 36.4; O2SAT 96
[2021-11-29] MEDS: QUEtiapine Fumarate 200 MG TABLET PO (21:00)
[2021-11-29] MEDS: traZODone HCL 50 MG TABLET PO (21:00)
--- NOTE | 2021-11-30 00:59 | PC.NURSE ---
Patient is a single, 41 year old Green[place]ic speaking, male, admitted as a CV admission to M[facility], 11/29/21 at 1626, from the [facility] and placed on 15 minute safety checks. His admitting diagnosis is Opioid Use Disorder severe and Major Depressive Disorder, single episode. He is currently being monitored for ETOH withdrawal. His BAL in the ED was 163 11/28/21. He was medically cleared, evaluated by [facility] and deemed in need of IPLOC secondary to the patient voicing SI to overdose on heroin or run into traffic. Patient had reported not being compliant with his medications and having severe depression with SI x one month. He is not known to [facility] but does admit to treatment in other facilities, locations unknown. Once the patient arrived on M5 he stated that he didn't feel good and was given prn medications for his ETOH withdrawals and allowed to sleep. Patient did not sign any legals, releases, safety tool or treatment plan. He denied any SI, HI AH or VH. Patient slept, ate dinner, slept and woke up for HS medications. He was polite but slightly irritable, physically hand and arm tremors noted by this singer songwriter. CIWA scale initiated. Patient in no apparent distress at the end of second shift. Report passed on to third shift.
[2021-11-30 06:00] VITALS: BP 115/56; PULSE 66; RESP 18; TEMP 36.9; O2SAT 96
[2021-11-30] MEDS: LORazepam 1 MG TABLET 2 MG PO ×2 (06:30→08:59)
[2021-11-30] MEDS: cloNIDine HCL 0.2 MG TABLET PO (08:02)
[2021-11-30] MEDS: Thiamine HCL 100 MG TABLET PO (08:02)
[2021-11-30] MEDS: methADONE HCl 20 MG/2 ML ORAL.CONC 120 MG PO (08:02)
[2021-11-30] MEDS: Gabapentin 400 MG CAPSULE 800 MG PO ×2 (08:02→15:01)
[2021-11-30] MEDS: buPROPion HCl XL 300 MG TAB.ER.24H PO (08:02)
[2021-11-30 08:03] VITALS: BP 113/59; PULSE 94
[2021-11-30] MEDS: buPROPion HCl XL 150 MG TAB.ER.24H PO (12:30)
--- NOTE | 2021-11-30 13:24 | P.PNPSI_ITS ---
Subjective Subjective Date of Service: 11/30/21 Reason For Visit: SI,etoh use DO Subjective Notes: Conditional Voluntary Interim History: Pt very somnolent, minimally cooperative in interview due to sedation. Pt reports feeling depressed, no hx of VH/AH. He reports sleeping well with seroquel. He reports using cocaine, alcohol, not able to quantify. He reports hx of seizures but would not elaborate as to whether seizures occurred in setting of alcohol withdrawal or cocaine. He is on wellbutrin briefly discussed risks of lower seizure threshole with wellbutrin. interview limited due to sedation. Medication Compliance: Yes Side effects from medications: No Review of Systems Review of Systems Yes all other systems are reviewed and are negative Constitutional: Reports no additional constitutional complaints, Denies body ache(s), Denies chills, Denies fever(s), Denies headache(s) and Denies weakness Eyes: Reports no additional eye complaints and Denies change in vision Reports system reviewed and no additional complaints, except as documented, Denies dizziness, Denies headache(s), Denies nasal congestion, Denies nasal discharge and Denies neck pain Cardiovascular: Reports no additional cardiovascular complaints, Denies chest pain, Denies leg edema and Denies dyspnea Respiratory: Reports no additional respiratory complaints, Denies cough and Denies dyspnea Gastrointestinal: Reports no additional gastrointestinal complaints, Denies abdominal pain, Denies diarrhea, Denies nausea and Denies vomiting Genitourinary: Denies urinary incontinence Musculoskeletal: Reports no additional musculoskeletal complaints, Denies back pain, Denies arthralgias, Denies joint swelling, Denies neck pain, Denies numbness and Denies tingling Skin/Breast: Reports system reviewed and no additional complaints, except as docu and Denies rash Reports system reviewed and no additional complaints, except as documented, Denies Abnormal speech present, Denies dizziness, Denies headache(s), Denies numbness, Denies tingling and Denies weakness Psychiatric: Reports depression and Reports suicidal ideation Mental Status Exam Mental Status Exam Narrative: Appearance: casually groomed, fair hygiene in NAD Behavior:somnolent psychomotor:retardation noted Speech:mumble at times due to sedation, minimally spontaneous, delayed response rate/soft tone Thought process:mostly linear, lost train of thought due to sedation Thought content:feeling depressed, no signs of psychosis Mood: depressed Affect: sedated SI:passive HI:none VH/AH:none Delusions:none Insight/judgment:poor x 2. Memory/cog: alert, oriented x 4. not formally tested. Diagnostics Vital Signs (24Hr): Vital Signs - 24 hr 11/29/21 21:00 11/30/21 06:00 11/30/21 08:03 Temperature 97.6 F 98.4 F Pulse Rate 75 66 94 Respiratory Rate 14 18 Blood Pressure 120/60 115/56 L 113/59 L Pulse Oximetry 96 96 BMI result Verdana 4 Body Mass Index Verdana 4 29.0 Verdana 4 Verdana 4 Labs Results: 11/28/21 16:15 11/28/21 16:15 Labs: Laboratory Results - last 48 hr 11/28/21 11/28/21 11/28/21 15:31 15:31 16:15 WBC 5.4 RBC 4.74 Hgb 14.6 Hct 42.6 MCV 89.9 MCH 30.8 MCHC 34.3 RDW 13.3 Plt Count 130 L MPV 11.2 Immature Gran % (Auto) 0.2 Neut % (Auto) 51.1 Lymph % (Auto) 38.1 [place] % (Auto) 6.5 Eos % (Auto) 3.9 Baso % (Auto) 0.2 Lymph # (Auto) 2.1 [place] # (Auto) 0.4 Eos # (Auto) 0.2 Baso # (Auto) 0.0 Abs Immat Gran (auto) 0.01 Absolute Neuts (auto) 2.8 Absolute Nucleated RBC 0.000 Nucleated RBC % (auto) 0.0 Sodium Potassium Chloride Carbon Dioxide Anion Gap BUN Creatinine Estim Creat Clear Calc Estimated GFR Random Glucose Calcium Total Bilirubin Direct Bilirubin AST ALT Alkaline Phosphatase Total Protein Albumin Urine Opiates Screen Not Detected Urine Fentanyl Screen Not Detected Ur Barbiturates Screen Not Detected Ur Phencyclidine Scrn Not Detected Ur Amphetamines Screen Not Detected U Benzodiazepines Scrn Not Detected Urine Cocaine Screen POSITIVE H U Marijuana (THC) Screen Not Detected Ethyl Alcohol COVID-19 (HONG) Negative COVID-19 Clin Com See Note 11/28/21 11/28/21 11/29/21 16:15 16:15 10:52 WBC RBC Hgb Hct MCV MCH MCHC RDW Plt Count MPV Immature Gran % (Auto) Neut % (Auto) Lymph % (Auto) [place] % (Auto) Eos % (Auto) Baso % (Auto) Lymph # (Auto) [place] # (Auto) Eos # (Auto) Baso # (Auto) Abs Immat Gran (auto) Absolute Neuts (auto) Absolute Nucleated RBC Nucleated RBC % (auto) Sodium 140 Potassium 4.3 Chloride 109 H Carbon Dioxide 21 L Anion Gap 14 BUN 10 Creatinine 1.13 Estim Creat Clear Calc 87.1 Estimated GFR > 60 Random Glucose 89 Calcium 9.2 Total Bilirubin 0.6 Direct Bilirubin 0.3 AST 118 H ALT 150 H Alkaline Phosphatase 94 Total Protein 8.4 H Albumin 4.1 Urine Opiates Screen Urine Fentanyl Screen Ur Barbiturates Screen Ur Phencyclidine Scrn Ur Amphetamines Screen U Benzodiazepines Scrn Urine Cocaine Screen U Marijuana (THC) Screen Ethyl Alcohol 163 COVID-19 (HONG) Negative COVID-19 Clin Com See Note Medications Medications Current Medications Acetaminophen (Acetaminophen 325 Mg Tablet) 650 mg PO Q6H PRN PRN Reason: Headache/Pain Mild Scale (1-3) Al Hydroxide/Mg Hydroxide (Magnesium Hydrox/Alum Hydrox 30 Ml Oral.Susp) 30 ml PO Q6H PRN PRN Reason: Heartburn/Nausea Bupropion HCl (Bupropion Hcl Xl 300 Mg Tab.Er.24h) 300 mg PO DAILY [facility] Last Admin: 11/30/21 08:02 Dose: 300 mg Documented by: Bupropion HCl (Bupropion Hcl Xl 150 Mg Tab.Er.24h) 150 mg PO DAILY@1300 [facility] Last Admin: 11/30/21 12:30 Dose: 150 mg Documented by: Clonidine HCl (Clonidine Hcl 0.2 Mg Tablet) 0.2 mg PO BID [facility]; Protocol Last Admin: 11/30/21 08:02 Dose: 0.2 mg Documented by: Gabapentin (Gabapentin 400 Mg Capsule) 800 mg PO TID [facility] Last Admin: 11/30/21 08:02 Dose: 800 mg Documented by: Hydroxyzine HCl (Hydroxyzine Hcl 25 Mg Tablet) 25 mg PO Q6H PRN PRN Reason: Anxiety Lorazepam (Lorazepam 1 Mg Tablet) 2 mg PO Q6H PRN PRN Reason: Alcohol Withdrawal Last Admin: 11/30/21 08:59 Dose: 2 mg Documented by: Magnesium Hydroxide (Milk Of Magnesia 30 Ml Oral.Susp) 30 ml PO DAILY PRN PRN Reason: Constipation Methadone HCl (Methadone Hcl 20 Mg/2 Ml Oral.Conc) 120 mg PO DAILY [facility] Last Admin: 11/30/21 08:02 Dose: 120 mg Documented by: Ondansetron HCl (Ondansetron Odt 8 Mg Tab.Rapdis) 8 mg TRANSLINGU Q8H PRN PRN Reason: nausea Quetiapine Fumarate (Quetiapine Fumarate 200 Mg Tablet) 200 mg PO BEDTIME [facility] Last Admin: 11/29/21 21:00 Dose: 200 mg Documented by: Thiamine HCl (Thiamine Hcl 100 Mg Tablet) 100 mg PO DAILY [facility] Last Admin: 11/30/21 08:02 Dose: 100 mg Documented by: Trazodone HCl (Trazodone Hcl 50 Mg Tablet) 50 mg PO BEDTIME PRN PRN Reason: Insomnia Last Admin: 11/29/21 21:00 Dose: 50 mg Documented by: Allergies Allergies Allergy/AdvReac Type Severity Reaction Status Date / Time No Known Allergies Allergy Verified 11/28/21 20:05 Assessment & Plan Assessment & Plan (1) MDD (major depressive disorder), recurrent episode, moderate: Status: Acute Code(s): F33.1 - Major depressive disorder, recurrent, moderate (2) Cocaine use disorder, moderate, dependence: Status: Acute Code(s): F14.20 - Cocaine dependence, uncomplicated (3) Alcohol use disorder, moderate, dependence: Status: Acute Code(s): F10.20 - Alcohol dependence, uncomplicated Plan Mr. Lamas is a 41 year-old male with hx of MDD< cocaine and alcohol use, self presented to [facility] ED reporting SI with plan to OD or jump into traffic. Utox positive for cocaine, BAL 163. PLAN 1. Admit to M5, cv 15 minutes check for safety 2. Continue wellbutrin (verify with pt hx of seizure), seroquel, clonidine, gabapentin 3. obtain collateral information 4. aftercare planning. I spent ___25___ minutes with the patient and/or on the patient floor today, greater than?50% of which was spent counseling/coordinating care. Reason for contiued inpatient stay Substantial Risk for: harm to self and inability to function
[2021-11-30] MEDS: LORazepam 1 MG TABLET PO (15:01)
[2021-12-01] MEDS: QUEtiapine Fumarate 200 MG TABLET PO ×2 (00:40→19:47)
[2021-12-01] MEDS: LORazepam 1 MG TABLET PO ×4 (00:41→19:49)
[2021-12-01] MEDS: Gabapentin 400 MG CAPSULE 800 MG PO ×4 (00:41→19:47)
[2021-12-01] MEDS: cloNIDine HCL 0.2 MG TABLET PO ×3 (00:41→19:47)
[2021-12-01 08:30] VITALS: BP 112/68; PULSE 61; RESP 61; TEMP 36.9
[2021-12-01] MEDS: Thiamine HCL 100 MG TABLET PO (09:16)
[2021-12-01] MEDS: buPROPion HCl XL 300 MG TAB.ER.24H PO (09:16)
[2021-12-01] MEDS: methADONE HCl 20 MG/2 ML ORAL.CONC 120 MG PO (09:17)
--- NOTE | 2021-12-01 11:27 | P.PNPSI_ITS ---
Subjective Subjective Date of Service: 12/01/21 Reason For Visit: SI,etoh use DO Subjective Notes: Conditional Voluntary Interim History: Pt less sedated today, although very guarded when this senior medical writer mentioned that he seemed very sedated yesterday. Pt reports feeling depressed, suicidal but no plan. He reports wellbutrin works well for depression. He does report alcohol withdrawal seizures. Pt reports he had been drinking between 25 nips to pints of alcohol for more than few months. He denies SI/HI. Nausea- agrees to take famotide and omeprazole, denies vomiting blood. He later reported his mother was in hospital. noted to nod again, later reported sorry, I was spaced out, my mother . When asked if mother or was in hospital, pt stated oh sorry, I'm so confused. Medication Compliance: Yes Side effects from medications: No Review of Systems Review of Systems CVS: No c/o chest pain, palpitations, no SOB CARD TENDER: No c/o dizziness, headache GI: c/o Nausea, denies Vomiting, diarrhea, constipation or heartburn Yes all other systems are reviewed and are negative Constitutional: Reports no additional constitutional complaints, Denies body ache(s), Denies chills, Denies fever(s), Denies headache(s) and Denies weakness Eyes: Reports no additional eye complaints and Denies change in vision Reports system reviewed and no additional complaints, except as documented, Denies dizziness, Denies headache(s), Denies nasal congestion, Denies nasal discharge and Denies neck pain Cardiovascular: Reports no additional cardiovascular complaints, Denies chest pain, Denies leg edema and Denies dyspnea Respiratory: Reports no additional respiratory complaints, Denies cough and Denies dyspnea Gastrointestinal: Reports no additional gastrointestinal complaints, Denies abdominal pain, Denies diarrhea, Denies nausea and Denies vomiting Genitourinary: Denies urinary incontinence Musculoskeletal: Reports no additional musculoskeletal complaints, Denies back pain, Denies arthralgias, Denies joint swelling, Denies neck pain, Denies numbness and Denies tingling Skin/Breast: Reports system reviewed and no additional complaints, except as docu and Denies rash Reports system reviewed and no additional complaints, except as documented, Denies Abnormal speech present, Denies dizziness, Denies headache(s), Denies numbness, Denies tingling and Denies weakness Psychiatric: Reports depression and Reports suicidal ideation Mental Status Exam Mental Status Exam Narrative: A&O. Overweight, in hospital attire. Poor eye contact, inattentive. No Tics or Tremors. No abnormal involuntary movements. Calm, cooperative, somewhat difficult to engage in meaningful conversation, as pt is in withdrawal and somnolent. Non-pressured speech, spontaneous with regular rate and rhythm, normal volume and prosody. No prolonged speech latency or dysarthria. Mood is ?depressed,? affect is blunted. Endorses SI without plan or intent, denies SIB/HI upon inquiry. Denies A/VH or delusional thought content. Thoughts are concrete, linear. No known cognitive or memory impairment. Insight/ Judgment limited. Diagnostics Vital Signs (24Hr): Vital Signs - 24 hr 12/01/21 08:30 Temperature 98.4 F Pulse Rate 61 Respiratory Rate 61 H Blood Pressure 112/68 BMI result Verdana 4 Body Mass Index Verdana 4 29.0 Verdana 4 Verdana 4 Labs Results: 11/28/21 16:15 11/28/21 16:15 Medications Medications Current Medications Acetaminophen (Acetaminophen 325 Mg Tablet) 650 mg PO Q6H PRN PRN Reason: Headache/Pain Mild Scale (1-3) Al Hydroxide/Mg Hydroxide (Magnesium Hydrox/Alum Hydrox 30 Ml Oral.Susp) 30 ml PO Q6H PRN PRN Reason: Heartburn/Nausea Bupropion HCl (Bupropion Hcl Xl 300 Mg Tab.Er.24h) 300 mg PO DAILY [facility] Last Admin: 12/01/21 09:16 Dose: 300 mg Documented by: Clonidine HCl (Clonidine Hcl 0.2 Mg Tablet) 0.2 mg PO BID [facility]; Protocol Last Admin: 12/01/21 09:15 Dose: 0.2 mg Documented by: Famotidine (Famotidine 20 Mg Tablet) 20 mg PO BID [facility] Gabapentin (Gabapentin 400 Mg Capsule) 800 mg PO TID [facility] Last Admin: 12/01/21 16:05 Dose: 800 mg Documented by: Hydroxyzine HCl (Hydroxyzine Hcl 25 Mg Tablet) 25 mg PO Q6H PRN PRN Reason: Anxiety Lorazepam (Lorazepam 1 Mg Tablet) 1 mg PO Q6H PRN PRN Reason: Alcohol Withdrawal Last Admin: 12/01/21 11:33 Dose: 1 mg Documented by: Magnesium Hydroxide (Milk Of Magnesia 30 Ml Oral.Susp) 30 ml PO DAILY PRN PRN Reason: Constipation Methadone HCl (Methadone Hcl 20 Mg/2 Ml Oral.Conc) 120 mg PO DAILY [facility] Last Admin: 12/01/21 09:17 Dose: 120 mg Documented by: Omeprazole (Omeprazole 20 Mg Capsule.Dr) 20 mg PO BID@0630,1630 [facility] Ondansetron HCl (Ondansetron Odt 8 Mg Tab.Rapdis) 8 mg TRANSLINGU Q8H PRN PRN Reason: nausea Quetiapine Fumarate (Quetiapine Fumarate 200 Mg Tablet) 200 mg PO BEDTIME [facility] Last Admin: 12/01/21 00:40 Dose: 200 mg Documented by: Thiamine HCl (Thiamine Hcl 100 Mg Tablet) 100 mg PO DAILY [facility] Last Admin: 12/01/21 09:16 Dose: 100 mg Documented by: Trazodone HCl (Trazodone Hcl 50 Mg Tablet) 50 mg PO BEDTIME PRN PRN Reason: Insomnia Last Admin: 11/29/21 21:00 Dose: 50 mg Documented by: Allergies Allergies Allergy/AdvReac Type Severity Reaction Status Date / Time No Known Allergies Allergy Verified 11/28/21 20:05 Assessment & Plan Assessment & Plan (1) Alcohol use disorder, moderate, dependence: Status: Acute Code(s): F10.20 - Alcohol dependence, uncomplicated (2) Cocaine use disorder, moderate, dependence: Status: Acute Code(s): F14.20 - Cocaine dependence, uncomplicated (3) MDD (major depressive disorder), recurrent episode, moderate: Status: Acute Code(s): F33.1 - Major depressive disorder, recurrent, moderate Plan Norbert is a 41 y.o. male who carries a dx of PTSD, Alcohol Use disorder, cocaine/ stimulant use disorder, IWONA, and MDD, recurrent. He recently has been abusing crystal meth, crack cocaine, and alcohol. Plan: 1. continue ciwa, so far his SBP <150, DBP<90 2. continue wellbutrin lower dose- 300mg po daily due to hx of alcohol withdrawal seizure. continue gabapentin, thiamine 3. continue methadone I spent ___25___ minutes with the patient and/or on the patient floor today, gr eater than?50% of which was spent counseling/coordinating care. Reason for contiued inpatient stay Substantial Risk for: harm to self and inability to function
[2021-12-01] MEDS: Omeprazole 20 MG CAPSULE.DR PO (17:44)
[2021-12-01] MEDS: Famotidine 20 MG TABLET PO (19:47)
[2021-12-02 06:00] VITALS: BP 109/68; PULSE 83; TEMP 28.3
[2021-12-02] MEDS: LORazepam 1 MG TABLET PO ×3 (08:29→20:18)
[2021-12-02] MEDS: Gabapentin 400 MG CAPSULE 800 MG PO ×3 (08:30→20:18)
[2021-12-02] MEDS: Famotidine 20 MG TABLET PO ×2 (08:30→20:21)
[2021-12-02] MEDS: buPROPion HCl XL 300 MG TAB.ER.24H PO (08:30)
[2021-12-02] MEDS: Thiamine HCL 100 MG TABLET PO (08:30)
[2021-12-02] MEDS: Omeprazole 20 MG CAPSULE.DR PO (08:30)
[2021-12-02] MEDS: cloNIDine HCL 0.2 MG TABLET PO ×2 (08:30→20:17)
[2021-12-02] MEDS: methADONE HCl 20 MG/2 ML ORAL.CONC 120 MG PO (08:32)
--- NOTE | 2021-12-02 11:33 | P.PNPSI_ITS ---
Subjective Subjective Date of Service: 12/02/21 Reason For Visit: SI,etoh use DO Subjective Notes: Conditional Voluntary Interim History: Pt more visible today. He reports he slept fairly well but still woke up few times. He continues to report depressed mood passive SI, no plan. No signs of alcohol withdrawal SBP<150, DBP<90, HR<100. Pt reports less acid reflux no vomiting nor blood seen on vomit. Medication Compliance: Yes Side effects from medications: No Attending Groups: No Review of Systems Review of Systems CVS: No c/o chest pain, palpitations, no SOB ED MANAGER: No c/o dizziness, headache GI: c/o Nausea, denies Vomiting, diarrhea, constipation or heartburn Yes all other systems are reviewed and are negative Constitutional: Reports no additional constitutional complaints, Denies body ache(s), Denies chills, Denies fever(s), Denies headache(s) and Denies weakness Eyes: Reports no additional eye complaints and Denies change in vision Reports system reviewed and no additional complaints, except as documented, Denies dizziness, Denies headache(s), Denies nasal congestion, Denies nasal discharge and Denies neck pain Cardiovascular: Reports no additional cardiovascular complaints, Denies chest pain, Denies leg edema and Denies dyspnea Respiratory: Reports no additional respiratory complaints, Denies cough and Denies dyspnea Gastrointestinal: Reports no additional gastrointestinal complaints, Denies abdominal pain, Denies diarrhea, Denies nausea and Denies vomiting Genitourinary: Denies urinary incontinence Musculoskeletal: Reports no additional musculoskeletal complaints, Denies back pain, Denies arthralgias, Denies joint swelling, Denies neck pain, Denies numbness and Denies tingling Skin/Breast: Reports system reviewed and no additional complaints, except as docu and Denies rash Reports system reviewed and no additional complaints, except as documented, Denies Abnormal speech present, Denies dizziness, Denies headache(s), Denies numbness, Denies tingling and Denies weakness Psychiatric: Reports depression and Reports suicidal ideation Mental Status Exam Mental Status Exam Narrative: A&O. Overweight, in hospital attire. Poor eye contact, inattentive. No Tics or Tremors. No abnormal involuntary movements. Calm, cooperative, somewhat difficult to engage in meaningful conversation, as pt is in withdrawal and somnolent. Non-pressured speech, spontaneous with regular rate and rhythm, normal volume and prosody. No prolonged speech latency or dysarthria. Mood is ?depressed,? affect is blunted. Endorses SI without plan or intent, denies SIB/HI upon inquiry. Denies A/VH or delusional thought content. Thoughts are concrete, linear. No known cognitive or memory impairment. Insight/ Judgment limited. Diagnostics Vital Signs (24Hr): Vital Signs - 24 hr 12/02/21 06:00 Temperature 83 F L Pulse Rate 83 Blood Pressure 109/68 BMI result Verdana 4 Body Mass Index Verdana 4 29.0 Verdana 4 Verdana 4 Labs Results: 11/28/21 16:15 11/28/21 16:15 Medications Medications Current Medications Acetaminophen (Acetaminophen 325 Mg Tablet) 650 mg PO Q6H PRN PRN Reason: Headache/Pain Mild Scale (1-3) Al Hydroxide/Mg Hydroxide (Magnesium Hydrox/Alum Hydrox 30 Ml Oral.Susp) 30 ml PO Q6H PRN PRN Reason: Heartburn/Nausea Bupropion HCl (Bupropion Hcl Xl 300 Mg Tab.Er.24h) 300 mg PO DAILY [facility] Last Admin: 12/02/21 08:30 Dose: 300 mg Documented by: Clonidine HCl (Clonidine Hcl 0.2 Mg Tablet) 0.2 mg PO BID [facility]; Protocol Last Admin: 12/02/21 08:30 Dose: 0.2 mg Documented by: Famotidine (Famotidine 20 Mg Tablet) 20 mg PO BID [facility] Last Admin: 12/02/21 08:30 Dose: 20 mg Documented by: Gabapentin (Gabapentin 400 Mg Capsule) 800 mg PO TID [facility] Last Admin: 12/02/21 14:25 Dose: 800 mg Documented by: Hydroxyzine HCl (Hydroxyzine Hcl 25 Mg Tablet) 25 mg PO Q6H PRN PRN Reason: Anxiety Lorazepam (Lorazepam 1 Mg Tablet) 1 mg PO Q6H PRN PRN Reason: Alcohol Withdrawal Last Admin: 12/02/21 14:26 Dose: 1 mg Documented by: Magnesium Hydroxide (Milk Of Magnesia 30 Ml Oral.Susp) 30 ml PO DAILY PRN PRN Reason: Constipation Methadone HCl (Methadone Hcl 20 Mg/2 Ml Oral.Conc) 120 mg PO DAILY [facility] Last Admin: 12/02/21 08:32 Dose: 120 mg Documented by: Omeprazole (Omeprazole 20 Mg Capsule.Dr) 20 mg PO BID@0630,1630 [facility] Last Admin: 12/02/21 16:11 Dose: Not Given Documented by: Ondansetron HCl (Ondansetron Odt 8 Mg Tab.Rapdis) 8 mg TRANSLINGU Q8H PRN PRN Reason: nausea Quetiapine Fumarate (Quetiapine Fumarate 200 Mg Tablet) 200 mg PO BEDTIME [facility] Last Admin: 12/01/21 19:47 Dose: 200 mg Documented by: Thiamine HCl (Thiamine Hcl 100 Mg Tablet) 100 mg PO DAILY [facility] Last Admin: 12/02/21 08:30 Dose: 100 mg Documented by: Trazodone HCl (Trazodone Hcl 50 Mg Tablet) 50 mg PO BEDTIME PRN PRN Reason: Insomnia Last Admin: 11/29/21 21:00 Dose: 50 mg Documented by: Allergies Allergies Allergy/AdvReac Type Severity Reaction Status Date / Time No Known Allergies Allergy Verified 11/28/21 20:05 Assessment & Plan Assessment & Plan (1) Alcohol use disorder, moderate, dependence: Status: Acute Code(s): F10.20 - Alcohol dependence, uncomplicated (2) Cocaine use disorder, moderate, dependence: Status: Acute Code(s): F14.20 - Cocaine dependence, uncomplicated (3) MDD (major depressive disorder), recurrent episode, moderate: Status: Acute Code(s): F33.1 - Major depressive disorder, recurrent, moderate Plan Norbert is a 41 y.o. male who carries a dx of PTSD, Alcohol Use disorder, cocaine/ stimulant use disorder, IWONA, and MDD, recurrent. He recently has been abusing crystal meth, crack cocaine, and alcohol. Plan: 1. continue ciwa, so far his SBP <150, DBP<90 2. continue wellbutrin lower dose- 300mg po daily due to hx of alcohol withdrawal seizure. continue gabapentin, thiamine 3. continue methadone I spent minutes with the patient and/or on the patient floor today, greater than?50% of which was spent counseling/coordinating care. Reason for contiued inpatient stay Substantial Risk for: harm to self
[2021-12-02 20:16] VITALS: BP 124/77; PULSE 80; RESP 16; TEMP 36.5; O2SAT 96
[2021-12-02] MEDS: QUEtiapine Fumarate 200 MG TABLET PO (20:18)
[2021-12-03] MEDS: cloNIDine HCL 0.2 MG TABLET PO ×2 (08:21→20:03)
[2021-12-03] MEDS: LORazepam 1 MG TABLET PO (08:21)
[2021-12-03] MEDS: Gabapentin 400 MG CAPSULE 800 MG PO ×3 (08:21→20:03)
[2021-12-03] MEDS: methADONE HCl 20 MG/2 ML ORAL.CONC 120 MG PO (08:21)
[2021-12-03] MEDS: Famotidine 20 MG TABLET PO ×2 (08:21→20:03)
[2021-12-03] MEDS: Thiamine HCL 100 MG TABLET PO (08:22)
[2021-12-03] MEDS: buPROPion HCl XL 300 MG TAB.ER.24H PO (08:22)
[2021-12-03] MEDS: Omeprazole 20 MG CAPSULE.DR PO ×2 (08:22→16:51)
[2021-12-03 08:25] VITALS: BP 136/86; PULSE 83; RESP 16
--- NOTE | 2021-12-03 14:33 | P.PNPSI_ITS ---
Subjective Subjective Date of Service: 12/03/21 Reason For Visit: SI,etoh use DO Interim History: Patient seen and discussed with team. Per staffing operations manager, pt reports anxiety, he is irritable, labile, not attending groups, had an outburst in which he threw his coffee on the ground. Patient evaluated this morning and upon interview he says he is Good. He again asks to increase wellbutrin and to take it BID, it helps me better. Will defer to primary psych provider. Says his energy is low, all i wanna do is sleep now, feels he is not really sleeping at night, napping in the daytime. In the milieu, patient is safe but irritable and withdrawn in behavior. Denies SI/SIB/HI upon inquiry. Says he feels safe. Medication Compliance: Yes Side effects from medications: No Attending Groups: No Review of Systems Acute medical concerns: No Medical Review of Systems: unchanged Mental Status Exam Mental Status Exam Narrative: A&O. Overweight, in hospital attire. Poor eye contact, inattentive. No Tics or Tremors. No abnormal involuntary movements. Calm, guarded, difficult to engage. Non-pressured speech, spontaneous with regular rate and rhythm, normal volume and prosody. No prolonged speech latency or dysarthria. Mood is ?tired,? affect is blunted. Denies SI/SIB/HI upon inquiry. Denies A/VH or delusional thought content. Thoughts are concrete, linear, perseverative on wellbutrin. No known cognitive or memory impairment. Insight/ Judgment limited. Diagnostics Vital Signs (24Hr): Vital Signs - 24 hr 12/04/21 21:15 12/05/21 08:15 Temperature 97.9 F Pulse Rate 65 63 Blood Pressure 121/83 110/64 Pulse Oximetry 97 BMI result Verdana 4 Body Mass Index Verdana 4 29.0 Verdana 4 Verdana 4 Labs Results: 11/28/21 16:15 11/28/21 16:15 Medications Medications Current Medications Acetaminophen (Acetaminophen 325 Mg Tablet) 650 mg PO Q6H PRN PRN Reason: Headache/Pain Mild Scale (1-3) Al Hydroxide/Mg Hydroxide (Magnesium Hydrox/Alum Hydrox 30 Ml Oral.Susp) 30 ml PO Q6H PRN PRN Reason: Heartburn/Nausea Bupropion HCl (Bupropion Hcl Xl 300 Mg Tab.Er.24h) 300 mg PO DAILY [facility] Last Admin: 12/05/21 08:27 Dose: 300 mg Documented by: Clonidine HCl (Clonidine Hcl 0.2 Mg Tablet) 0.2 mg PO BID [facility]; Protocol Last Admin: 12/05/21 08:27 Dose: 0.2 mg Documented by: Docusate Sodium (Docusate Sodium 100 Mg Capsule) 100 mg PO BEDTIME PRN PRN Reason: constipation Famotidine (Famotidine 20 Mg Tablet) 20 mg PO BID [facility] Last Admin: 12/05/21 08:27 Dose: 20 mg Documented by: Gabapentin (Gabapentin 400 Mg Capsule) 800 mg PO TID [facility] Last Admin: 12/05/21 08:28 Dose: 800 mg Documented by: Hydroxyzine HCl (Hydroxyzine Hcl 25 Mg Tablet) 25 mg PO Q6H PRN PRN Reason: Anxiety Last Admin: 12/04/21 12:57 Dose: 25 mg Documented by: Magnesium Hydroxide (Milk Of Magnesia 30 Ml Oral.Susp) 30 ml PO DAILY PRN PRN Reason: Constipation Methadone HCl (Methadone Hcl 20 Mg/2 Ml Oral.Conc) 120 mg PO DAILY [facility] Last Admin: 12/05/21 08:28 Dose: 120 mg Documented by: Omeprazole (Omeprazole 20 Mg Capsule.Dr) 20 mg PO BID@0630,1630 [facility] Last Admin: 12/05/21 06:39 Dose: Not Given Documented by: Ondansetron HCl (Ondansetron Odt 8 Mg Tab.Rapdis) 8 mg TRANSLINGU Q8H PRN PRN Reason: nausea Quetiapine Fumarate (Quetiapine Fumarate 300 Mg Tablet) 300 mg PO BEDTIME [facility] Last Admin: 12/04/21 21:18 Dose: 300 mg Documented by: Quetiapine Fumarate (Quetiapine Fumarate 50 Mg Tablet) 50 mg PO Q6H PRN PRN Reason: anxiety, agitation Thiamine HCl (Thiamine Hcl 100 Mg Tablet) 100 mg PO DAILY [facility] Last Admin: 12/05/21 08:27 Dose: 100 mg Documented by: Trazodone HCl (Trazodone Hcl 50 Mg Tablet) 50 mg PO BEDTIME PRN PRN Reason: Insomnia Last Admin: 11/29/21 21:00 Dose: 50 mg Documented by: Allergies Allergies Allergy/AdvReac Type Severity Reaction Status Date / Time No Known Allergies Allergy Verified 11/28/21 20:05 Assessment & Plan Assessment & Plan (1) Alcohol use disorder, moderate, dependence: Status: Acute Code(s): F10.20 - Alcohol dependence, uncomplicated (2) Cocaine use disorder, moderate, dependence: Status: Acute Code(s): F14.20 - Cocaine dependence, uncomplicated (3) MDD (major depressive disorder), recurrent episode, moderate: Status: Acute Code(s): F33.1 - Major depressive disorder, recurrent, moderate Plan Norbert is a 41 y.o. male who carries a dx of PTSD, Alcohol Use disorder, cocaine/ stimulant use disorder, IWONA, and MDD, recurrent. He recently has been abusing crystal meth, crack cocaine, and alcohol. Plan: 1. continue ciwa, so far his SBP <150, DBP<90 2. continue wellbutrin lower dose- 300mg po daily due to hx of alcohol withdrawal seizure. continue gabapentin, thiamine 3. continue methadone 12/03: increase seroquel to 300 mg QHS due to reported poor sleep and depressed mood. Discontinue CIWA and ativan, as pt is no longer in active withdrawal from ETOH. No seizures. 12/04: Start seroquel 50 mg Q6H PRN for anxiety, agitation. Qtc wnl. I spent minutes with the patient and/or on the patient floor today, greater than?50% of which was spent counseling/coordinating care. Reason for contiued inpatient stay Substantial Risk for: harm to self, rapid decompensation and med/psych decompensation
[2021-12-03] MEDS: hydrOXYzine HCL 25 MG TABLET PO (16:51)
[2021-12-03 19:45] VITALS: BP 114/70; PULSE 85
[2021-12-03] MEDS: QUEtiapine Fumarate 300 MG TABLET PO (20:03)
[2021-12-04] MEDS: Thiamine HCL 100 MG TABLET PO (08:01)
[2021-12-04] MEDS: Gabapentin 400 MG CAPSULE 800 MG PO ×3 (08:01→21:20)
[2021-12-04] MEDS: buPROPion HCl XL 300 MG TAB.ER.24H PO (08:02)
[2021-12-04] MEDS: methADONE HCl 20 MG/2 ML ORAL.CONC 120 MG PO (08:02)
[2021-12-04] MEDS: Famotidine 20 MG TABLET PO ×2 (08:02→21:18)
[2021-12-04] MEDS: cloNIDine HCL 0.2 MG TABLET PO ×2 (08:02→21:18)
[2021-12-04 08:06] VITALS: BP 126/82; PULSE 89; RESP 16
[2021-12-04] MEDS: hydrOXYzine HCL 25 MG TABLET PO (12:57)
--- NOTE | 2021-12-04 14:39 | P.PNPSI_ITS ---
Subjective Subjective Date of Service: 12/04/21 Reason For Visit: SI,etoh use DO Interim History: Patient seen and discussed with team. Patient evaluated this morning and upon interview reports he slept alright, but still says he feels horrible, perseverates on wanting to increase his wellbutrin, that helps me a lot, and asks for an anxiety med. Denies benefit on the increased seroquel dose, I didnt notice the difference. Daytime energy is low. Says he is anxious all the time and that xanax is the only thing that has worked. Discussed abuse potential and CI due to ETOH use DO. He is willing to trial seroquel 50 mg PRN. In the milieu, patient is safe but still withdrawn in behavior, minimally participating in tx. Denies SI/SIB/HI upon inquiry. Denies irritability or assau ltive ideation. Says he feels safe. Medication Compliance: Yes Side effects from medications: No Attending Groups: No Review of Systems Acute medical concerns: No Medical Review of Systems: unchanged Mental Status Exam Mental Status Exam Narrative: A&O. Overweight, in hospital attire. Poor eye contact, inattentive. No Tics or Tremors. No abnormal involuntary movements. Calm, guarded, difficult to engage. Non-pressured speech, spontaneous with regular rate and rhythm, normal volume and prosody. No prolonged speech latency or dysarthria. Mood is ?horrible,? affect is blunted. Denies SI/SIB/HI upon inquiry. Denies A/VH or delusional thought content. Thoughts are concrete, linear, perseverative on wellbutrin. No known cognitive or memory impairment. Insight/ Judgment limited. Diagnostics Vital Signs (24Hr): Vital Signs - 24 hr 12/03/21 19:45 12/04/21 08:06 Pulse Rate 85 89 Respiratory Rate 16 Blood Pressure 114/70 126/82 BMI result Verdana 4 Body Mass Index Verdana 4 29.0 Verdana 4 Verdana 4 Labs Results: 11/28/21 16:15 11/28/21 16:15 Medications Medications Current Medications Acetaminophen (Acetaminophen 325 Mg Tablet) 650 mg PO Q6H PRN PRN Reason: Headache/Pain Mild Scale (1-3) Al Hydroxide/Mg Hydroxide (Magnesium Hydrox/Alum Hydrox 30 Ml Oral.Susp) 30 ml PO Q6H PRN PRN Reason: Heartburn/Nausea Bupropion HCl (Bupropion Hcl Xl 300 Mg Tab.Er.24h) 300 mg PO DAILY [facility] Last Admin: 12/04/21 08:02 Dose: 300 mg Documented by: Clonidine HCl (Clonidine Hcl 0.2 Mg Tablet) 0.2 mg PO BID [facility]; Protocol Last Admin: 12/04/21 08:02 Dose: 0.2 mg Documented by: Docusate Sodium (Docusate Sodium 100 Mg Capsule) 100 mg PO BEDTIME PRN PRN Reason: constipation Famotidine (Famotidine 20 Mg Tablet) 20 mg PO BID [facility] Last Admin: 12/04/21 08:02 Dose: 20 mg Documented by: Gabapentin (Gabapentin 400 Mg Capsule) 800 mg PO TID [facility] Last Admin: 12/04/21 08:01 Dose: 800 mg Documented by: Hydroxyzine HCl (Hydroxyzine Hcl 25 Mg Tablet) 25 mg PO Q6H PRN PRN Reason: Anxiety Last Admin: 12/04/21 12:57 Dose: 25 mg Documented by: Magnesium Hydroxide (Milk Of Magnesia 30 Ml Oral.Susp) 30 ml PO DAILY PRN PRN Reason: Constipation Methadone HCl (Methadone Hcl 20 Mg/2 Ml Oral.Conc) 120 mg PO DAILY [facility] Last Admin: 12/04/21 08:02 Dose: 120 mg Documented by: Omeprazole (Omeprazole 20 Mg Capsule.Dr) 20 mg PO BID@0630,1630 [facility] Last Admin: 12/04/21 08:05 Dose: Not Given Documented by: Ondansetron HCl (Ondansetron Odt 8 Mg Tab.Rapdis) 8 mg TRANSLINGU Q8H PRN PRN Reason: nausea Quetiapine Fumarate (Quetiapine Fumarate 300 Mg Tablet) 300 mg PO BEDTIME [facility] Last Admin: 12/03/21 20:03 Dose: 300 mg Documented by: Thiamine HCl (Thiamine Hcl 100 Mg Tablet) 100 mg PO DAILY [facility] Last Admin: 12/04/21 08:01 Dose: 100 mg Documented by: Trazodone HCl (Trazodone Hcl 50 Mg Tablet) 50 mg PO BEDTIME PRN PRN Reason: Insomnia Last Admin: 11/29/21 21:00 Dose: 50 mg Documented by: Allergies Allergies Allergy/AdvReac Type Severity Reaction Status Date / Time No Known Allergies Allergy Verified 11/28/21 20:05 Assessment & Plan Assessment & Plan (1) Alcohol use disorder, moderate, dependence: Status: Acute Code(s): F10.20 - Alcohol dependence, uncomplicated (2) Cocaine use disorder, moderate, dependence: Status: Acute Code(s): F14.20 - Cocaine dependence, uncomplicated (3) MDD (major depressive disorder), recurrent episode, moderate: Status: Acute Code(s): F33.1 - Major depressive disorder, recurrent, moderate Plan Norbert is a 41 y.o. male who carries a dx of PTSD, Alcohol Use disorder, cocaine/ stimulant use disorder, IWONA, and MDD, recurrent. He recently has been abusing crystal meth, crack cocaine, and alcohol. Plan: 1. continue ciwa, so far his SBP <150, DBP<90 2. continue wellbutrin lower dose- 300mg po daily due to hx of alcohol withdrawal seizure. continue gabapentin, thiamine 3. continue methadone 12/03: increase seroquel to 300 mg QHS due to reported poor sleep and depressed mood.Discontinue CIWA and ativan, as pt is no longer in active withdrawal from ETOH. No seizures. 12/04: Start seroquel 50 mg Q6H PRN for anxiety, agitation. Qtc wnl. I spent minutes with the patient and/or on the patient floor today, greater than?50% of which was spent counseling/coordinating care. Reason for contiued inpatient stay Substantial Risk for: rapid decompensation and med/psych decompensation
[2021-12-04 21:15] VITALS: BP 121/83; PULSE 65
[2021-12-04] MEDS: QUEtiapine Fumarate 300 MG TABLET PO (21:18)
[2021-12-05 08:15] VITALS: BP 110/64; PULSE 63; TEMP 36.6; O2SAT 97
[2021-12-05] MEDS: Thiamine HCL 100 MG TABLET PO (08:27)
[2021-12-05] MEDS: Famotidine 20 MG TABLET PO ×2 (08:27→21:01)
[2021-12-05] MEDS: cloNIDine HCL 0.2 MG TABLET PO ×2 (08:27→21:01)
[2021-12-05] MEDS: buPROPion HCl XL 300 MG TAB.ER.24H PO (08:27)
[2021-12-05] MEDS: Gabapentin 400 MG CAPSULE 800 MG PO ×3 (08:28→21:00)
[2021-12-05] MEDS: methADONE HCl 20 MG/2 ML ORAL.CONC 120 MG PO (08:28)
[2021-12-05] MEDS: QUEtiapine Fumarate 50 MG TABLET PO (14:17)
--- NOTE | 2021-12-05 15:26 | P.PNPSI_ITS ---
Subjective Subjective Date of Service: 12/05/21 Reason For Visit: SI,etoh use DO Interim History: Norbert is focused today on Wellbutrin, and not being able to have a bid dosing. Discussed options-Encouraged pt to remain with the XL 300 mg a.m. however, he prefers 100 mg bid-states by history dosing is 450 mg daily. Will trial at his request, however, we may need to return to XL 300. He is aware and asks to trial irregardless. Reports feeling improved, however, sleep continues poor. E ncouraged to trial Seroquel prn which he reports he will do. Pt discussed making a complete regime change. Review of each medicine and purpose and encouraged him to remain with his plan which he will continue to trial. Medication Compliance: Yes Side effects from medications: No Attending Groups: Intermittent Review of Systems Acute medical concerns: No Medical Review of Systems: unchanged Review of Systems Reports behavioral changes Psychiatric: Reports abnormal sleep pattern, Reports anxiety, Reports behavioral changes, Reports depression, Reports hopelessness and Reports suicidal ideation (denies) Mental Status Exam Mental Status Exam Patient Appearance: Appropriate Patient Orientation: Person, Place, Time and Situation Level of Consciousness: Alert Patient Behavior: Talkative and Good Eye Contact Mood Description: Anxious and Apprehensive Affect Description: Constricted Patient Cognition Impaired: No Ability to Follow Directions: Good Speech Pattern: Spontaneous Speech Memory Description: Episodic Impaired Hallucinations: None Delusions: Not Present Thought Process: Distracted Thought Content: positive for Circumstantial and positive for Suicidal Ideation (denies) Depressive Symptoms: Increased Anxiety and Thoughts of /Suicide (denies) Abnormal Motor Activity Signs and Symptoms: Restlessness Judgement: Fair Diagnostics Vital Signs (24Hr): Vital Signs - 24 hr 12/04/21 21:15 12/05/21 08:15 Temperature 97.9 F Pulse Rate 65 63 Blood Pressure 121/83 110/64 Pulse Oximetry 97 BMI result Body Mass Index 29.0 Labs Results: 11/28/21 16:15 11/28/21 16:15 Medications Medications Current Medications Acetaminophen (Acetaminophen 325 Mg Tablet) 650 mg PO Q6H PRN PRN Reason: Headache/Pain Mild Scale (1-3) Al Hydroxide/Mg Hydroxide (Magnesium Hydrox/Alum Hydrox 30 Ml Oral.Susp) 30 ml PO Q6H PRN PRN Reason: Heartburn/Nausea Bupropion HCl (Bupropion Hcl Xl 300 Mg Tab.Er.24h) 300 mg PO DAILY [facility] Last Admin: 12/05/21 08:27 Dose: 300 mg Documented by: Clonidine HCl (Clonidine Hcl 0.2 Mg Tablet) 0.2 mg PO BID [facility]; Protocol Last Admin: 12/05/21 08:27 Dose: 0.2 mg Documented by: Docusate Sodium (Docusate Sodium 100 Mg Capsule) 100 mg PO BEDTIME PRN PRN Reason: constipation Famotidine (Famotidine 20 Mg Tablet) 20 mg PO BID [facility] Last Admin: 12/05/21 08:27 Dose: 20 mg Documented by: Gabapentin (Gabapentin 400 Mg Capsule) 800 mg PO TID [facility] Last Admin: 12/05/21 14:17 Dose: 800 mg Documented by: Hydroxyzine HCl (Hydroxyzine Hcl 25 Mg Tablet) 25 mg PO Q6H PRN PRN Reason: Anxiety Last Admin: 12/04/21 12:57 Dose: 25 mg Documented by: Magnesium Hydroxide (Milk Of Magnesia 30 Ml Oral.Susp) 30 ml PO DAILY PRN PRN Reason: Constipation Methadone HCl (Methadone Hcl 20 Mg/2 Ml Oral.Conc) 120 mg PO DAILY [facility] Last Admin: 12/05/21 08:28 Dose: 120 mg Documented by: Omeprazole (Omeprazole 20 Mg Capsule.Dr) 20 mg PO BID@0630,1630 [facility] Last Admin: 12/05/21 06:39 Dose: Not Given Documented by: Ondansetron HCl (Ondansetron Odt 8 Mg Tab.Rapdis) 8 mg TRANSLINGU Q8H PRN PRN Reason: nausea Quetiapine Fumarate (Quetiapine Fumarate 300 Mg Tablet) 300 mg PO BEDTIME [facility] Last Admin: 12/04/21 21:18 Dose: 300 mg Documented by: Quetiapine Fumarate (Quetiapine Fumarate 50 Mg Tablet) 50 mg PO Q6H PRN PRN Reason: anxiety, agitation Last Admin: 12/05/21 14:17 Dose: 50 mg Documented by: Thiamine HCl (Thiamine Hcl 100 Mg Tablet) 100 mg PO DAILY [facility] Last Admin: 12/05/21 08:27 Dose: 100 mg Documented by: Trazodone HCl (Trazodone Hcl 50 Mg Tablet) 50 mg PO BEDTIME PRN PRN Reason: Insomnia Last Admin: 11/29/21 21:00 Dose: 50 mg Documented by: Allergies Allergies Allergy/AdvReac Type Severity Reaction Status Date / Time No Known Allergies Allergy Verified 11/28/21 20:05 Assessment & Plan Assessment & Plan (1) Alcohol use disorder, moderate, dependence: Status: Acute Code(s): F10.20 - Alcohol dependence, uncomplicated (2) Cocaine use disorder, moderate, dependence: Status: Acute Code(s): F14.20 - Cocaine dependence, uncomplicated (3) MDD (major depressive disorder), recurrent episode, moderate: Status: Acute Code(s): F33.1 - Major depressive disorder, recurrent, moderate Plan Norbert is a 41 y.o. male who carries a dx of PTSD, Alcohol Use disorder, cocaine/ stimulant use disorder, IWONA, and MDD, recurrent. He recently has been abusing crystal meth, crack cocaine, and alcohol. Plan: 1. continue ciwa, so far his SBP <150, DBP<90 2. continue wellbutrin lower dose- 300mg po daily due to hx of alcohol withdrawal seizure. continue gabapentin, thiamine 3. continue methadone 12/03: increase seroquel to 300 mg QHS due to reported poor sleep and depressed mood. Discontinue CIWA and ativan, as pt is no longer in active withdrawal from ETOH. No seizures. 12/04: Start seroquel 50 mg Q6H PRN for anxiety, agitation. Qtc wnl. 12/05: Per pt request, d/c Wellbutrin XL. Wellbutrin 100 mg bid. Pt wanting bid dosing. I spent 40 minutes with the patient and/or on the patient floor today, greater than?50% of which was spent counseling/coordinating care. Patient educated on: medication risk/benefits Informed Consent: understands and further education needed Reason for contiued inpatient stay Substantial Risk for: inability to function and rapid decompensation
[2021-12-05 20:55] VITALS: BP 107/58; PULSE 82; RESP 20; TEMP 36.9; O2SAT 94
[2021-12-05] MEDS: hydrOXYzine HCL 25 MG TABLET PO (21:01)
[2021-12-05] MEDS: QUEtiapine Fumarate 300 MG TABLET PO (21:01)
[2021-12-06 06:00] VITALS: BP 103/62; PULSE 72; TEMP 36.6; O2SAT 98
[2021-12-06] MEDS: cloNIDine HCL 0.2 MG TABLET PO ×2 (08:38→21:25)
[2021-12-06] MEDS: methADONE HCl 20 MG/2 ML ORAL.CONC 120 MG PO (08:38)
[2021-12-06] MEDS: Thiamine HCL 100 MG TABLET PO (08:38)
[2021-12-06] MEDS: Famotidine 20 MG TABLET PO ×2 (08:38→21:24)
[2021-12-06] MEDS: Omeprazole 20 MG CAPSULE.DR PO ×2 (08:38→15:44)
[2021-12-06] MEDS: Gabapentin 400 MG CAPSULE 800 MG PO ×3 (08:38→21:24)
[2021-12-06] MEDS: buPROPion HCL 100 MG TABLET PO ×2 (08:51→14:23)
[2021-12-06] MEDS: Magnesium Hydrox/Alum Hydrox 30 ML ORAL.SUSP PO (09:33)
[2021-12-06] MEDS: QUEtiapine Fumarate 50 MG TABLET PO (15:44)
--- NOTE | 2021-12-06 16:57 | P.PNPSI_ITS ---
Subjective Subjective Date of Service: 12/06/21 Reason For Visit: SI,etoh use DO Interim History: Review of medication with Norbert. He continues to focus on Wellbutrin and wants to keep current bid dosing. Reports poor sleep-review of available prn Seroquel which he reports he will utilize. Focus for pt is on aftercare planning-he has refused ICM zoom meeting to discuss hoursing options and will allow referrals only in [place] for CSS. Per OP team follow up has been weak. Discussed with pt the need to have a strong plan of care to promote wellness and sobriety. Pt appears apprehensive and meets just briefly-presents with distraction and apprehension. Medication Compliance: Yes Side effects from medications: No Attending Groups: Intermittent Review of Systems Acute medical concerns: No Medical Review of Systems: unchanged Mental Status Exam Mental Status Exam Patient Appearance: Appropriate Patient Orientation: Person, Place, Time and Situation Level of Consciousness: Alert Patient Behavior: Talkative and Good Eye Contact Mood Description: Anxious and Apprehensive Affect Description: Constricted Patient Cognition Impaired: No Ability to Follow Directions: Good Speech Pattern: Spontaneous Speech Memory Description: Episodic Impaired Hallucinations: None Delusions: Not Present Thought Process: Distracted Thought Content: positive for Circumstantial and positive for Suicidal Ideation (denies) Depressive Symptoms: Increased Anxiety and Thoughts of /Suicide (denies) Abnormal Motor Activity Signs and Symptoms: Restlessness Judgement: Fair Diagnostics Vital Signs (24Hr): Vital Signs - 24 hr 12/05/21 20:55 12/06/21 06:00 Temperature 98.4 F 97.8 F Pulse Rate 82 72 Respiratory Rate 20 Blood Pressure 107/58 L 103/62 Pulse Oximetry 94 98 BMI result Body Mass Index 29.0 Labs Results: 11/28/21 16:15 11/28/21 16:15 Medications Medications Current Medications Acetaminophen (Acetaminophen 325 Mg Tablet) 650 mg PO Q6H PRN PRN Reason: Headache/Pain Mild Scale (1-3) Al Hydroxide/Mg Hydroxide (Magnesium Hydrox/Alum Hydrox 30 Ml Oral.Susp) 30 ml PO Q6H PRN PRN Reason: Heartburn/Nausea Last Admin: 12/06/21 09:33 Dose: 30 ml Documented by: Bupropion HCl (Bupropion Hcl 100 Mg Tablet) 100 mg PO 0900,1400 [facility] Last Admin: 12/06/21 14:23 Dose: 100 mg Documented by: Clonidine HCl (Clonidine Hcl 0.2 Mg Tablet) 0.2 mg PO BID [facility]; Protocol Last Admin: 12/06/21 08:38 Dose: 0.2 mg Documented by: Docusate Sodium (Docusate Sodium 100 Mg Capsule) 100 mg PO BEDTIME PRN PRN Reason: constipation Famotidine (Famotidine 20 Mg Tablet) 20 mg PO BID [facility] Last Admin: 12/06/21 08:38 Dose: 20 mg Documented by: Gabapentin (Gabapentin 400 Mg Capsule) 800 mg PO TID [facility] Last Admin: 12/06/21 14:23 Dose: 800 mg Documented by: Hydroxyzine HCl (Hydroxyzine Hcl 25 Mg Tablet) 25 mg PO Q6H PRN PRN Reason: Anxiety Last Admin: 12/05/21 21:01 Dose: 25 mg Documented by: Magnesium Hydroxide (Milk Of Magnesia 30 Ml Oral.Susp) 30 ml PO DAILY PRN PRN Reason: Constipation Methadone HCl (Methadone Hcl 20 Mg/2 Ml Oral.Conc) 120 mg PO DAILY [facility] Last Admin: 12/06/21 08:38 Dose: 120 mg Documented by: Omeprazole (Omeprazole 20 Mg Capsule.Dr) 20 mg PO BID@0630,1630 [facility] Last Admin: 12/06/21 15:44 Dose: 20 mg Documented by: Ondansetron HCl (Ondansetron Odt 8 Mg Tab.Rapdis) 8 mg TRANSLINGU Q8H PRN PRN Reason: nausea Quetiapine Fumarate (Quetiapine Fumarate 300 Mg Tablet) 300 mg PO BEDTIME [facility] Last Admin: 12/05/21 21:01 Dose: 300 mg Documented by: Quetiapine Fumarate (Quetiapine Fumarate 50 Mg Tablet) 50 mg PO Q6H PRN PRN Reason: anxiety, agitation Last Admin: 12/06/21 15:44 Dose: 50 mg Documented by: Thiamine HCl (Thiamine Hcl 100 Mg Tablet) 100 mg PO DAILY [facility] Last Admin: 12/06/21 08:38 Dose: 100 mg Documented by: Trazodone HCl (Trazodone Hcl 50 Mg Tablet) 50 mg PO BEDTIME PRN PRN Reason: Insomnia Last Admin: 11/29/21 21:00 Dose: 50 mg Documented by: Allergies Allergies Allergy/AdvReac Type Severity Reaction Status Date / Time No Known Allergies Allergy Verified 11/28/21 20:05 Assessment & Plan Assessment & Plan (1) Alcohol use disorder, moderate, dependence: Status: Acute Code(s): F10.20 - Alcohol dependence, uncomplicated (2) Cocaine use disorder, moderate, dependence: Status: Acute Code(s): F14.20 - Cocaine dependence, uncomplicated (3) MDD (major depressive disorder), recurrent episode, moderate: Status: Acute Code(s): F33.1 - Major depressive disorder, recurrent, moderate Plan Norbert is a 41 y.o. male who carries a dx of PTSD, Alcohol Use disorder, cocai ne/ stimulant use disorder, IWONA, and MDD, recurrent. He recently has been abusing crystal meth, crack cocaine, and alcohol. Plan: 1. continue ciwa, so far his SBP <150, DBP<90 2. continue wellbutrin lower dose- 300mg po daily due to hx of alcohol withdrawal seizure. continue gabapentin, thiamine 3. continue methadone 12/03: increase seroquel to 300 mg QHS due to reported poor sleep and depressed mood. Discontinue CIWA and ativan, as pt is no longer in active withdrawal from ETOH. No seizures. 12/04: Start seroquel 50 mg Q6H PRN for anxiety, agitation. Qtc wnl. 12/05: Per pt request, d/c Wellbutrin XL. Wellbutrin 100 mg bid. Pt wanting bid dosing. 12/06/21: Per pt request continue Wellbutrin 100 mg bid. Pt looking at discharge referral resources. Sleep continues to be interrupted-encouraged to utilize prn Seroquel if needed. I spent 25 minutes with the patient and/or on the patient floor today, greater than?50% of which was spent counseling/coordinating care. Patient educated on: medication risk/benefits and therapeutic strategies Informed Consent: understands Reason for contiued inpatient stay Substantial Risk for: harm to self and rapid decompensation
[2021-12-06 21:15] VITALS: BP 107/61; PULSE 62; TEMP 36.2; O2SAT 95
[2021-12-06] MEDS: QUEtiapine Fumarate 300 MG TABLET PO (21:25)
[2021-12-07] MEDS: QUEtiapine Fumarate 50 MG TABLET PO ×2 (02:22→15:45)
[2021-12-07 06:00] VITALS: BP 109/69; PULSE 70; TEMP 36.4; O2SAT 98
[2021-12-07] MEDS: Famotidine 20 MG TABLET PO ×2 (08:25→20:22)
[2021-12-07] MEDS: Thiamine HCL 100 MG TABLET PO (08:25)
[2021-12-07] MEDS: Gabapentin 400 MG CAPSULE 800 MG PO ×3 (08:25→20:22)
[2021-12-07] MEDS: methADONE HCl 20 MG/2 ML ORAL.CONC 120 MG PO (08:25)
[2021-12-07] MEDS: Omeprazole 20 MG CAPSULE.DR PO (08:25)
[2021-12-07] MEDS: cloNIDine HCL 0.2 MG TABLET PO ×2 (08:25→20:22)
[2021-12-07] MEDS: buPROPion HCL 100 MG TABLET PO ×2 (08:59→13:43)
--- NOTE | 2021-12-07 17:15 | HO.PSYCHPN ---
Subjective Subjective Date of Service: 12/07/21 Reason For Visit: SI,etoh use DO Interim History: Patient seen and discussed with team. Patient evaluated this morning and upon interview he is found sleeping, says I cant talk, i'm tired. Denies having questions or concerns. Medication Compliance: Yes Side effects from medications: No Attending Groups: No Review of Systems Acute medical concerns: No Medical Review of Systems: unchanged Mental Status Exam Mental Status Exam Narrative: Patient Appearance:?Appropriate Patient Orientation:?Person, Place, Time and Situation Level of Consciousness:?Alert Patient Behavior:?Talkative and Good Eye Contact Mood Description:?Anxious and Apprehensive Affect Description:?Constricted Patient Cognition Impaired:?No Ability to Follow Directions:?Good Speech Pattern:?Spontaneous Speech Memory Description:?Episodic Impaired Hallucinations:?None Delusions:?Not Present Thought Process:?Distracted Thought Content:?positive for Circumstantial and positive for Suicidal Ideation (denies) Depressive Symptoms:?Increased Anxiety and Thoughts of /Suicide (denies) Abnormal Motor Activity Signs and Symptoms:?Restlessness Judgement:?Fair Diagnostics Vital Signs (24Hr): Vital Signs - 24 hr 12/06/21 21:15 12/07/21 06:00 Temperature 97.2 F 97.5 F Pulse Rate 62 70 Blood Pressure 107/61 109/69 Pulse Oximetry 95 98 BMI result Body Mass Index 29.0 Labs Results: 11/28/21 16:15 11/28/21 16:15 Medications Medications Current Medications Acetaminophen (Acetaminophen 325 Mg Tablet) 650 mg PO Q6H PRN PRN Reason: Headache/Pain Mild Scale (1-3) Al Hydroxide/Mg Hydroxide (Magnesium Hydrox/Alum Hydrox 30 Ml Oral.Susp) 30 ml PO Q6H PRN PRN Reason: Heartburn/Nausea Last Admin: 12/06/21 09:33 Dose: 30 ml Documented by: Bupropion HCl (Bupropion Hcl 100 Mg Tablet) 100 mg PO 0900,1400 [facility] Last Admin: 12/07/21 13:43 Dose: 100 mg Documented by: Clonidine HCl (Clonidine Hcl 0.2 Mg Tablet) 0.2 mg PO BID [facility]; Protocol Last Admin: 12/07/21 08:25 Dose: 0.2 mg Documented by: Docusate Sodium (Docusate Sodium 100 Mg Capsule) 100 mg PO BEDTIME PRN PRN Reason: constipation Famotidine (Famotidine 20 Mg Tablet) 20 mg PO BID [facility] Last Admin: 12/07/21 08:25 Dose: 20 mg Documented by: Gabapentin (Gabapentin 400 Mg Capsule) 800 mg PO TID [facility] Last Admin: 12/07/21 14:14 Dose: 800 mg Documented by: Hydroxyzine HCl (Hydroxyzine Hcl 25 Mg Tablet) 25 mg PO Q6H PRN PRN Reason: Anxiety Last Admin: 12/05/21 21:01 Dose: 25 mg Documented by: Magnesium Hydroxide (Milk Of Magnesia 30 Ml Oral.Susp) 30 ml PO DAILY PRN PRN Reason: Constipation Methadone HCl (Methadone Hcl 20 Mg/2 Ml Oral.Conc) 120 mg PO DAILY [facility] Last Admin: 12/07/21 08:25 Dose: 120 mg Documented by: Omeprazole (Omeprazole 20 Mg Capsule.Dr) 20 mg PO BID@0630,1630 [facility] Last Admin: 12/07/21 08:25 Dose: 20 mg Documented by: Ondansetron HCl (Ondansetron Odt 8 Mg Tab.Rapdis) 8 mg TRANSLINGU Q8H PRN PRN Reason: nausea Quetiapine Fumarate (Quetiapine Fumarate 300 Mg Tablet) 300 mg PO BEDTIME [facility] Last Admin: 12/06/21 21:25 Dose: 300 mg Documented by: Quetiapine Fumarate (Quetiapine Fumarate 50 Mg Tablet) 50 mg PO Q6H PRN PRN Reason: anxiety, agitation Last Admin: 12/07/21 15:45 Dose: 50 mg Documented by: Thiamine HCl (Thiamine Hcl 100 Mg Tablet) 100 mg PO DAILY [facility] Last Admin: 12/07/21 08:25 Dose: 100 mg Documented by: Trazodone HCl (Trazodone Hcl 50 Mg Tablet) 50 mg PO BEDTIME PRN PRN Reason: Insomnia Last Admin: 11/29/21 21:00 Dose: 50 mg Documented by: Allergies Allergies Allergy/AdvReac Type Severity Reaction Status Date / Time No Known Allergies Allergy Verified 11/28/21 20:05 Assessment & Plan Assessment & Plan (1) Alcohol use disorder, moderate, dependence: Status: Acute Code(s): F10.20 - Alcohol dependence, uncomplicated (2) Cocaine use disorder, moderate, dependence: Status: Acute Code(s): F14.20 - Cocaine dependence, uncomplicated (3) MDD (major depressive disorder), recurrent episode, moderate: Status: Acute Code(s): F33.1 - Major depressive disorder, recurrent, moderate Plan Norbert is a 41 y.o. male who carries a dx of PTSD, Alcohol Use disorder, cocaine/ stimulant use disorder, IWONA, and MDD, recurrent. He recently has been abusing crystal meth, crack cocaine, and alcohol. Plan: 1. continue ciwa, so far his SBP <150, DBP<90 2. continue wellbutrin lower dose- 300mg po daily due to hx of alcohol withdrawal seizure. continue gabapentin, thiamine 3. continue methadone 12/03: increase seroquel to 300 mg QHS due to reported poor sleep and depressed mood. Discontinue CIWA and ativan, as pt is no longer in active withdrawal from ETOH. No seizures. 12/04: Start seroquel 50 mg Q6H PRN for anxiety, agitation. Qtc wnl. 12/05: Per pt request, d/c Wellbutrin XL. Wellbutrin 100 mg bid. Pt wanting bid dosing. 12/06/21: Per pt request continue Wellbutrin 100 mg bid. Pt looking at discharge referral resources. Sleep continues to be interrupted-encouraged to utilize prn Seroquel if needed. 12/07/21: No med changes, pt says he feels safe. I spent minutes with the patient and/or on the patient floor today, greater than?50% of which was spent counseling/coordinating care. Reason for contiued inpatient stay Substantial Risk for: rapid decompensation and med/psych decompensation
[2021-12-07 20:15] VITALS: BP 107/59; PULSE 66; TEMP 35.8; O2SAT 97
[2021-12-07] MEDS: QUEtiapine Fumarate 300 MG TABLET PO (20:25)
[2021-12-08 06:00] VITALS: BP 120/61; PULSE 82; TEMP 37.3
[2021-12-08] MEDS: Gabapentin 400 MG CAPSULE 800 MG PO ×3 (08:36→20:37)
[2021-12-08] MEDS: cloNIDine HCL 0.2 MG TABLET PO ×2 (08:36→20:37)
[2021-12-08] MEDS: Thiamine HCL 100 MG TABLET PO (08:37)
[2021-12-08] MEDS: Omeprazole 20 MG CAPSULE.DR PO ×2 (08:37→15:55)
[2021-12-08] MEDS: Famotidine 20 MG TABLET PO ×2 (08:37→20:37)
[2021-12-08] MEDS: methADONE HCl 20 MG/2 ML ORAL.CONC 120 MG PO (08:39)
[2021-12-08] MEDS: buPROPion HCL 100 MG TABLET PO ×2 (09:34→14:32)
[2021-12-08 10:29] LABS: COVID-19 Test Negative (Negative); IDNOW Serial# 9DD0AD1C
--- NOTE | 2021-12-08 14:28 | HO.PSYCHPN ---
Subjective Subjective Date of Service: 12/08/21 Reason For Visit: SI,etoh use DO Interim History: Norbert reports he is doing well, medicines are tolerated and effective. He is making some changes in discharge planning as many of the [place] programs are closed due to COVID. As a result he is considering other options. Medication Compliance: Yes Side effects from medications: No Attending Groups: Yes Review of Systems Acute medical concerns: No Medical Review of Systems: unchanged Review of Systems Reports behavioral changes Psychiatric: Reports anxiety, Reports behavioral changes and Reports anhedonia Mental Status Exam Mental Status Exam Patient Appearance: Appropriate Patient Orientation: Person, Place, Time and Situation Level of Consciousness: Alert Patient Behavior: Talkative and Good Eye Contact Mood Description: Anxious and Apprehensive Affect Description: Constricted Patient Cognition Impaired: No Ability to Follow Directions: Good Speech Pattern: Spontaneous Speech Memory Description: Episodic Impaired Hallucinations: None Delusions: Not Present Thought Process: Distracted Thought Content: positive for Circumstantial and positive for Suicidal Ideation (denies) Depressive Symptoms: Increased Anxiety and Thoughts of /Suicide (denies) Abnormal Motor Activity Signs and Symptoms: Restlessness Judgement: Fair Diagnostics Vital Signs (24Hr): Vital Signs - 24 hr 12/07/21 20:15 12/08/21 06:00 Temperature 96.5 F L 99.2 F Pulse Rate 66 82 Blood Pressure 107/59 L 120/61 Pulse Oximetry 97 BMI result Body Mass Index 29.0 Labs Results: 11/28/21 16:15 11/28/21 16:15 Labs: Laboratory Results - last 48 hr 12/08/21 09:40 COVID-19 ([facility]) Negative COVID-19 Clin Com See Note Medications Medications Current Medications Acetaminophen (Acetaminophen 325 Mg Tablet) 650 mg PO Q6H PRN PRN Reason: Headache/Pain Mild Scale (1-3) Al Hydroxide/Mg Hydroxide (Magnesium Hydrox/Alum Hydrox 30 Ml Oral.Susp) 30 ml PO Q6H PRN PRN Reason: Heartburn/Nausea Last Admin: 12/06/21 09:33 Dose: 30 ml Documented by: Bupropion HCl (Bupropion Hcl 100 Mg Tablet) 100 mg PO 0800,1200 [facility] Bupropion HCl (Bupropion Hcl 100 Mg Tablet) 100 mg PO ONCE ONE Stop: 12/08/21 14:26 Clonidine HCl (Clonidine Hcl 0.2 Mg Tablet) 0.2 mg PO BID [facility]; Protocol Last Admin: 12/08/21 08:36 Dose: 0.2 mg Documented by: Docusate Sodium (Docusate Sodium 100 Mg Capsule) 100 mg PO BEDTIME PRN PRN Reason: constipation Famotidine (Famotidine 20 Mg Tablet) 20 mg PO BID [facility] Last Admin: 12/08/21 08:37 Dose: 20 mg Documented by: Gabapentin (Gabapentin 400 Mg Capsule) 800 mg PO TID [facility] Last Admin: 12/08/21 08:36 Dose: 800 mg Documented by: Hydroxyzine HCl (Hydroxyzine Hcl 25 Mg Tablet) 25 mg PO Q6H PRN PRN Reason: Anxiety Last Admin: 12/05/21 21:01 Dose: 25 mg Documented by: Magnesium Hydroxide (Milk Of Magnesia 30 Ml Oral.Susp) 30 ml PO DAILY PRN PRN Reason: Constipation Methadone HCl (Methadone Hcl 20 Mg/2 Ml Oral.Conc) 120 mg PO DAILY [facility] Last Admin: 12/08/21 08:39 Dose: 120 mg Documented by: Omeprazole (Omeprazole 20 Mg Capsule.Dr) 20 mg PO BID@0630,1630 [facility] Last Admin: 12/08/21 08:37 Dose: 20 mg Documented by: Ondansetron HCl (Ondansetron Odt 8 Mg Tab.Rapdis) 8 mg TRANSLINGU Q8H PRN PRN Reason: nausea Quetiapine Fumarate (Quetiapine Fumarate 300 Mg Tablet) 300 mg PO BEDTIME [facility] Last Admin: 12/07/21 20:25 Dose: 300 mg Documented by: Quetiapine Fumarate (Quetiapine Fumarate 50 Mg Tablet) 50 mg PO Q6H PRN PRN Reason: anxiety, agitation Last Admin: 12/07/21 15:45 Dose: 50 mg Documented by: Thiamine HCl (Thiamine Hcl 100 Mg Tablet) 100 mg PO DAILY [facility] Last Admin: 12/08/21 08:37 Dose: 100 mg Documented by: Trazodone HCl (Trazodone Hcl 50 Mg Tablet) 50 mg PO BEDTIME PRN PRN Reason: Insomnia Last Admin: 11/29/21 21:00 Dose: 50 mg Documented by: Allergies Allergies Allergy/AdvReac Type Severity Reaction Status Date / Time No Known Allergies Allergy Verified 11/28/21 20:05 Assessment & Plan Assessment & Plan (1) Alcohol use disorder, moderate, dependence: Status: Acute Code(s): F10.20 - Alcohol dependence, uncomplicated (2) Cocaine use disorder, moderate, dependence: Status: Acute Code(s): F14.20 - Cocaine dependence, uncomplicated (3) MDD (major depressive disorder), recurrent episode, moderate: Status: Acute Code(s): F33.1 - Major depressive disorder, recurrent, moderate Plan Norbert is a 41 y.o. male who carries a dx of PTSD, Alcohol Use disorder, cocaine/ stimulant use disorder, IWONA, and MDD, recurrent. He recently has been abusing crystal meth, crack cocaine, and alcohol. Plan: 1. continue ciwa, so far his SBP <150, DBP<90 2. continue wellbutrin lower dose- 300mg po daily due to hx of alcohol withdrawal seizure. continue gabapentin, thiamine 3. continue methadone 12/03: increase seroquel to 300 mg QHS due to reported poor sleep and depressed mood. Discontinue CIWA and ativan, as pt is no longer in active withdrawal from ETOH. No seizures. 12/04: Start seroquel 50 mg Q6H PRN for anxiety, agitation. Qtc wnl. 12/05: Per pt request, d/c Wellbutrin XL. Wellbutrin 100 mg bid. Pt wanting bid dosing. 12/06/21: Per pt request continue Wellbutrin 100 mg bid. Pt looking at discharge referral resources. Sleep continues to be interrupted-encouraged to utilize prn Seroquel if needed. 12/08/21: Continue current regime. Discharge planning. I spent 15 minutes with the patient and/or on the patient floor today, greater than?50% of which was spent counseling/coordinating care. Patient educated on: therapeutic strategies Informed Consent: understands Reason for contiued inpatient stay Substantial Risk for: harm to self, inability to function and rapid decompensation
[2021-12-08 20:15] VITALS: BP 100/57; PULSE 67
[2021-12-08] MEDS: QUEtiapine Fumarate 300 MG TABLET PO (20:37)
[2021-12-09 06:00] VITALS: BP 120/93; PULSE 74; RESP 16; TEMP 36.3; O2SAT 97
[2021-12-09] MEDS: Gabapentin 400 MG CAPSULE 800 MG PO ×3 (08:03→20:13)
[2021-12-09] MEDS: cloNIDine HCL 0.2 MG TABLET PO ×2 (08:03→20:14)
[2021-12-09] MEDS: Omeprazole 20 MG CAPSULE.DR PO (08:03)
[2021-12-09] MEDS: buPROPion HCL 100 MG TABLET PO ×2 (08:04→12:16)
[2021-12-09] MEDS: Famotidine 20 MG TABLET PO ×2 (08:04→20:13)
[2021-12-09] MEDS: Thiamine HCL 100 MG TABLET PO (08:04)
[2021-12-09] MEDS: methADONE HCl 20 MG/2 ML ORAL.CONC 120 MG PO (09:49)
--- NOTE | 2021-12-09 10:45 | HO.PSYCHPN ---
Subjective Subjective Date of Service: 12/09/21 Reason For Visit: SI,etoh use DO Interim History: Feeling good. Pt reports he is doing well. Denies sx of concern. Reports he slept last night. Appears anxious in presentation, yet denies this as an active sx. Medication Compliance: Yes Side effects from medications: No Attending Groups: Yes Review of Systems Acute medical concerns: No Medical Review of Systems: unchanged Review of Systems Reports behavioral changes Psychiatric: Reports anxiety, Reports behavioral changes and Reports anhedonia Mental Status Exam Mental Status Exam Patient Appearance: Appropriate Patient Orientation: Person, Place, Time and Situation Level of Consciousness: Alert Patient Behavior: Talkative and Good Eye Contact Mood Description: Anxious and Apprehensive Affect Description: Constricted Patient Cognition Impaired: No Ability to Follow Directions: Good Speech Pattern: Spontaneous Speech Memory Description: Episodic Impaired Hallucinations: None Delusions: Not Present Thought Process: Distracted Thought Content: positive for Circumstantial and positive for Suicidal Ideation (denies) Depressive Symptoms: Increased Anxiety and Thoughts of /Suicide (denies) Abnormal Motor Activity Signs and Symptoms: Restlessness Judgement: Fair Diagnostics Vital Signs (24Hr): Vital Signs - 24 hr 12/08/21 20:15 12/09/21 06:00 Temperature 97.4 F Pulse Rate 67 74 Respiratory Rate 16 Blood Pressure 100/57 L 120/93 H Pulse Oximetry 97 BMI result Body Mass Index 29.0 Labs Results: 11/28/21 16:15 11/28/21 16:15 Labs: Laboratory Results - last 48 hr 12/08/21 09:40 COVID-19 ([facility]) Negative COVID-19 Clin Com See Note Medications Medications Current Medications Acetaminophen (Acetaminophen 325 Mg Tablet) 650 mg PO Q6H PRN PRN Reason: Headache/Pain Mild Scale (1-3) Al Hydroxide/Mg Hydroxide (Magnesium Hydrox/Alum Hydrox 30 Ml Oral.Susp) 30 ml PO Q6H PRN PRN Reason: Heartburn/Nausea Last Admin: 12/06/21 09:33 Dose: 30 ml Documented by: Bupropion HCl (Bupropion Hcl 100 Mg Tablet) 100 mg PO 0800,1200 [facility] Last Admin: 12/09/21 08:04 Dose: 100 mg Documented by: Clonidine HCl (Clonidine Hcl 0.2 Mg Tablet) 0.2 mg PO BID [facility]; Protocol Last Admin: 12/09/21 08:03 Dose: 0.2 mg Documented by: Docusate Sodium (Docusate Sodium 100 Mg Capsule) 100 mg PO BEDTIME PRN PRN Reason: constipation Famotidine (Famotidine 20 Mg Tablet) 20 mg PO BID [facility] Last Admin: 12/09/21 08:04 Dose: 20 mg Documented by: Gabapentin (Gabapentin 400 Mg Capsule) 800 mg PO TID [facility] Last Admin: 12/09/21 08:03 Dose: 800 mg Documented by: Hydroxyzine HCl (Hydroxyzine Hcl 25 Mg Tablet) 25 mg PO Q6H PRN PRN Reason: Anxiety Last Admin: 12/05/21 21:01 Dose: 25 mg Documented by: Magnesium Hydroxide (Milk Of Magnesia 30 Ml Oral.Susp) 30 ml PO DAILY PRN PRN Reason: Constipation Methadone HCl (Methadone Hcl 20 Mg/2 Ml Oral.Conc) 120 mg PO DAILY [facility] Last Admin: 12/09/21 09:49 Dose: 120 mg Documented by: Omeprazole (Omeprazole 20 Mg Capsule.Dr) 20 mg PO BID@0630,1630 [facility] Last Admin: 12/09/21 08:03 Dose: 20 mg Documented by: Ondansetron HCl (Ondansetron Odt 8 Mg Tab.Rapdis) 8 mg TRANSLINGU Q8H PRN PRN Reason: nausea Quetiapine Fumarate (Quetiapine Fumarate 300 Mg Tablet) 300 mg PO BEDTIME [facility] Last Admin: 12/08/21 20:37 Dose: 300 mg Documented by: Quetiapine Fumarate (Quetiapine Fumarate 50 Mg Tablet) 50 mg PO Q6H PRN PRN Reason: anxiety, agitation Last Admin: 12/07/21 15:45 Dose: 50 mg Documented by: Thiamine HCl (Thiamine Hcl 100 Mg Tablet) 100 mg PO DAILY [facility] Last Admin: 12/09/21 08:04 Dose: 100 mg Documented by: Trazodone HCl (Trazodone Hcl 50 Mg Tablet) 50 mg PO BEDTIME PRN PRN Reason: Insomnia Last Admin: 11/29/21 21:00 Dose: 50 mg Documented by: Allergies Allergies Allergy/AdvReac Type Severity Reaction Status Date / Time No Known Allergies Allergy Verified 11/28/21 20:05 Assessment & Plan Assessment & Plan (1) Alcohol use disorder, moderate, dependence: Status: Acute Code(s): F10.20 - Alcohol dependence, uncomplicated (2) Cocaine use disorder, moderate, dependence: Status: Acute Code(s): F14.20 - Cocaine dependence, uncomplicated (3) MDD (major depressive disorder), recurrent episode, moderate: Status: Acute Code(s): F33.1 - Major depressive disorder, recurrent, moderate Plan Norbert is a 41 y.o. male who carries a dx of PTSD, Alcohol Use disorder, cocaine/ stimulant use disorder, IWONA, and MDD, recurrent. He recently has been abusing crystal meth, crack cocaine, and alcohol. Plan: 1. continue ciwa, so far his SBP <150, DBP<90 2. continue wellbutrin lower dose- 300mg po daily due to hx of alcohol withdrawal seizure. continue gabapentin, thiamine 3. continue methadone 12/03: increase seroquel to 300 mg QHS due to reported poor sleep and depressed mood. Discontinue CIWA and ativan, as pt is no longer in active withdrawal from ETOH. No seizures. 12/04: Start seroquel 50 mg Q6H PRN for anxiety, agitation. Qtc wnl. 12/05: Per pt request, d/c Wellbutrin XL. Wellbutrin 100 mg bid. Pt wanting bid dosing. 12/06/21: Per pt request continue Wellbutrin 100 mg bid. Pt looking at discharge referral resources. Sleep continues to be interrupted-encouraged to utilize prn Seroquel if needed. 12/08/21: Continue current regime. Discharge planning. 12/09/21: Continue current plan of care. I spent 15 minutes with the patient and/or on the patient floor today, greater than?50% of which was spent counseling/coordinating care. Patient educated on: therapeutic strategies Informed Consent: understands Reason for contiued inpatient stay Substantial Risk for: rapid decompensation
[2021-12-09 20:12] VITALS: BP 125/72; PULSE 81; RESP 18; TEMP 36.5; O2SAT 97
[2021-12-09] MEDS: QUEtiapine Fumarate 300 MG TABLET PO (20:13)
[2021-12-10 06:00] VITALS: BP 128/78; PULSE 92; RESP 16; TEMP 36.3; O2SAT 97
[2021-12-10] MEDS: Gabapentin 400 MG CAPSULE 800 MG PO ×3 (08:36→19:45)
[2021-12-10] MEDS: cloNIDine HCL 0.2 MG TABLET PO ×2 (08:36→19:45)
[2021-12-10] MEDS: buPROPion HCL 100 MG TABLET PO ×2 (08:36→12:04)
[2021-12-10] MEDS: Famotidine 20 MG TABLET PO ×2 (08:37→19:45)
[2021-12-10] MEDS: Omeprazole 20 MG CAPSULE.DR PO (08:37)
[2021-12-10] MEDS: Thiamine HCL 100 MG TABLET PO (08:37)
[2021-12-10] MEDS: methADONE HCl 20 MG/2 ML ORAL.CONC 120 MG PO (08:39)
--- NOTE | 2021-12-10 11:52 | HO.PSYCHPN ---
Subjective Subjective Date of Service: 12/10/21 Reason For Visit: SI,etoh use DO Interim History: Norbert reports he is well. He states he has no concerns or questions regarding his plan of care today. He is social with his room-mate for most of the day-they share meals and television programs along with conversation. He continues to report Wellbutrin bid is more helpful for him vs once daily dosing. Medication Compliance: Yes Side effects from medications: No Attending Groups: Intermittent Review of Systems Acute medical concerns: No Medical Review of Systems: unchanged Review of Systems Psychiatric: Reports no additional psychiatric complaints Mental Status Exam Mental Status Exam Patient Appearance: Appropriate Patient Orientation: Person, Place, Time and Situation Level of Consciousness: Alert Patient Behavior: Talkative and Good Eye Contact Mood Description: Anxious and Apprehensive Affect Description: Constricted Patient Cognition Impaired: No Ability to Follow Directions: Good Speech Pattern: Spontaneous Speech Memory Description: Episodic Impaired Hallucinations: None Delusions: Not Present Thought Process: Distracted Thought Content: positive for Circumstantial and positive for Suicidal Ideation (denies) Depressive Symptoms: Increased Anxiety and Thoughts of /Suicide (denies) Abnormal Motor Activity Signs and Symptoms: Restlessness Judgement: Fair Diagnostics Vital Signs (24Hr): Vital Signs - 24 hr 12/09/21 20:12 12/10/21 06:00 Temperature 97.7 F 97.4 F Pulse Rate 81 92 Respiratory Rate 18 16 Blood Pressure 125/72 128/78 Pulse Oximetry 97 97 BMI result Body Mass Index 29.0 Labs Results: 11/28/21 16:15 11/28/21 16:15 Medications Medications Current Medications Acetaminophen (Acetaminophen 325 Mg Tablet) 650 mg PO Q6H PRN PRN Reason: Headache/Pain Mild Scale (1-3) Al Hydroxide/Mg Hydroxide (Magnesium Hydrox/Alum Hydrox 30 Ml Oral.Susp) 30 ml PO Q6H PRN PRN Reason: Heartburn/Nausea Last Admin: 12/06/21 09:33 Dose: 30 ml Documented by: Bupropion HCl (Bupropion Hcl 100 Mg Tablet) 100 mg PO 0800,1200 [facility] Last Admin: 12/10/21 08:36 Dose: 100 mg Documented by: Clonidine HCl (Clonidine Hcl 0.2 Mg Tablet) 0.2 mg PO BID [facility]; Protocol Last Admin: 12/10/21 08:36 Dose: 0.2 mg Documented by: Docusate Sodium (Docusate Sodium 100 Mg Capsule) 100 mg PO BEDTIME PRN PRN Reason: constipation Famotidine (Famotidine 20 Mg Tablet) 20 mg PO BID [facility] Last Admin: 12/10/21 08:37 Dose: 20 mg Documented by: Gabapentin (Gabapentin 400 Mg Capsule) 800 mg PO TID [facility] Last Admin: 12/10/21 08:36 Dose: 800 mg Documented by: Hydroxyzine HCl (Hydroxyzine Hcl 25 Mg Tablet) 25 mg PO Q6H PRN PRN Reason: Anxiety Last Admin: 12/05/21 21:01 Dose: 25 mg Documented by: Magnesium Hydroxide (Milk Of Magnesia 30 Ml Oral.Susp) 30 ml PO DAILY PRN PRN Reason: Constipation Methadone HCl (Methadone Hcl 20 Mg/2 Ml Oral.Conc) 120 mg PO DAILY [facility] Last Admin: 12/10/21 08:39 Dose: 120 mg Documented by: Omeprazole (Omeprazole 20 Mg Capsule.Dr) 20 mg PO BID@0630,1630 [facility] Last Admin: 12/10/21 08:37 Dose: 20 mg Documented by: Ondansetron HCl (Ondansetron Odt 8 Mg Tab.Rapdis) 8 mg TRANSLINGU Q8H PRN PRN Reason: nausea Quetiapine Fumarate (Quetiapine Fumarate 300 Mg Tablet) 300 mg PO BEDTIME [facility] Last Admin: 12/09/21 20:13 Dose: 300 mg Documented by: Quetiapine Fumarate (Quetiapine Fumarate 50 Mg Tablet) 50 mg PO Q6H PRN PRN Reason: anxiety, agitation Last Admin: 12/07/21 15:45 Dose: 50 mg Documented by: Thiamine HCl (Thiamine Hcl 100 Mg Tablet) 100 mg PO DAILY [facility] Last Admin: 12/10/21 08:37 Dose: 100 mg Documented by: Trazodone HCl (Trazodone Hcl 50 Mg Tablet) 50 mg PO BEDTIME PRN PRN Reason: Insomnia Last Admin: 11/29/21 21:00 Dose: 50 mg Documented by: Allergies Allergies Allergy/AdvReac Type Severity Reaction Status Date / Time No Known Allergies Allergy Verified 11/28/21 20:05 Assessment & Plan Assessment & Plan (1) Alcohol use disorder, moderate, dependence: Status: Acute Code(s): F10.20 - Alcohol dependence, uncomplicated (2) Cocaine use disorder, moderate, dependence: Status: Acute Code(s): F14.20 - Cocaine dependence, uncomplicated (3) MDD (major depressive disorder), recurrent episode, moderate: Status: Acute Code(s): F33.1 - Major depressive disorder, recurrent, moderate Plan Norbert is a 41 y.o. male who carries a dx of PTSD, Alcohol Use disorder, cocaine/ stimulant use disorder, IWONA, and MDD, recurrent. He recently has been abusing crystal meth, crack cocaine, and alcohol. Plan: 1. continue ciwa, so far his SBP <150, DBP<90 2. continue wellbutrin lower dose- 300mg po daily due to hx of alcohol withdrawal seizure. continue gabapentin, thiamine 3. continue methadone 12/03: increase seroquel to 300 mg QHS due to reported poor sleep and depressed mood. Discontinue CIWA and ativan, as pt is no longer in active withdrawal from ETOH. No seizures. 12/04: Start seroquel 50 mg Q6H PRN for anxiety, agitation. Qtc wnl. 12/05: Per pt request, d/c Wellbutrin XL. Wellbutrin 100 mg bid. Pt wanting bid dosing. 12/06/21: Per pt request continue Wellbutrin 100 mg bid. Pt looking at discharge referral resources. Sleep continues to be interrupted-encouraged to utilize prn Seroquel if needed. 12/08/21: Continue current regime. Discharge planning. 12/09/21: Continue current plan of care. 12/10/21: Continue current plan of care. Discharge planning. I spent 15 minutes with the patient and/or on the patient floor today, greater than?50% of which was spent counseling/coordinating care. Informed Consent: understands Reason for contiued inpatient stay Substantial Risk for: inability to function and rapid decompensation
[2021-12-10] MEDS: QUEtiapine Fumarate 50 MG TABLET PO (14:39)
[2021-12-10 19:45] VITALS: BP 113/60; PULSE 64; TEMP 36.3; O2SAT 97
[2021-12-10] MEDS: QUEtiapine Fumarate 300 MG TABLET PO (19:45)
[2021-12-11] MEDS: methADONE HCl 20 MG/2 ML ORAL.CONC 120 MG PO (09:11)
[2021-12-11] MEDS: Famotidine 20 MG TABLET PO ×2 (09:12→19:50)
[2021-12-11] MEDS: buPROPion HCL 100 MG TABLET PO ×2 (09:12→11:55)
[2021-12-11] MEDS: Thiamine HCL 100 MG TABLET PO (09:12)
[2021-12-11] MEDS: Omeprazole 20 MG CAPSULE.DR PO (09:12)
[2021-12-11] MEDS: Gabapentin 400 MG CAPSULE 800 MG PO ×3 (09:12→19:50)
[2021-12-11] MEDS: cloNIDine HCL 0.2 MG TABLET PO ×2 (09:12→19:51)
[2021-12-11 09:18] VITALS: BP 119/69; PULSE 71; RESP 16; TEMP 36.8; O2SAT 96
--- NOTE | 2021-12-11 09:24 | P.PNPSI_ITS ---
Subjective Subjective Date of Service: 12/11/21 Reason For Visit: SI,etoh use DO Interim History: Pt has bonded well with room-mate, they are together often in milieu. Today, pt is found drawing. He denies medicine SE, reports regime to be tolerated and helpful. Reports sleep, appetite are intact and Wellbutrin dosing continues to be effective. Medication Compliance: Yes Side effects from medications: No Attending Groups: Intermittent Review of Systems Acute medical concerns: No Medical Review of Systems: unchanged Review of Systems Reports behavioral changes Psychiatric: Reports anxiety, Reports behavioral changes and Reports suicidal ideation (denies) Mental Status Exam Mental Status Exam Patient Appearance: Appropriate Patient Orientation: Person, Place, Time and Situation Level of Consciousness: Alert Patient Behavior: Talkative and Good Eye Contact Mood Description: Anxious and Apprehensive Affect Description: Constricted Patient Cognition Impaired: No Ability to Follow Directions: Good Speech Pattern: Spontaneous Speech Memory Description: Episodic Impaired Hallucinations: None Delusions: Not Present Thought Process: Distracted Thought Content: positive for Circumstantial and positive for Suicidal Ideation (denies) Depressive Symptoms: Increased Anxiety and Thoughts of /Suicide (denies) Abnormal Motor Activity Signs and Symptoms: Restlessness Judgement: Fair Diagnostics Vital Signs (24Hr): Vital Signs - 24 hr 12/10/21 19:45 12/11/21 09:18 Temperature 97.4 F 98.2 F Pulse Rate 64 71 Respiratory Rate 16 Blood Pressure 113/60 119/69 Pulse Oximetry 97 96 BMI result Body Mass Index 29.0 Labs Results: 11/28/21 16:15 11/28/21 16:15 Medications Medications Current Medications Acetaminophen (Acetaminophen 325 Mg Tablet) 650 mg PO Q6H PRN PRN Reason: Headache/Pain Mild Scale (1-3) Al Hydroxide/Mg Hydroxide (Magnesium Hydrox/Alum Hydrox 30 Ml Oral.Susp) 30 ml PO Q6H PRN PRN Reason: Heartburn/Nausea Last Admin: 12/06/21 09:33 Dose: 30 ml Documented by: Bupropion HCl (Bupropion Hcl 100 Mg Tablet) 100 mg PO 0800,1200 [facility] Last Admin: 12/11/21 09:12 Dose: 100 mg Documented by: Clonidine HCl (Clonidine Hcl 0.2 Mg Tablet) 0.2 mg PO BID [facility]; Protocol Last Admin: 12/11/21 09:12 Dose: 0.2 mg Documented by: Docusate Sodium (Docusate Sodium 100 Mg Capsule) 100 mg PO BEDTIME PRN PRN Reason: constipation Famotidine (Famotidine 20 Mg Tablet) 20 mg PO BID [facility] Last Admin: 12/11/21 09:12 Dose: 20 mg Documented by: Gabapentin (Gabapentin 400 Mg Capsule) 800 mg PO TID [facility] Last Admin: 12/11/21 09:12 Dose: 800 mg Documented by: Hydroxyzine HCl (Hydroxyzine Hcl 25 Mg Tablet) 25 mg PO Q6H PRN PRN Reason: Anxiety Last Admin: 12/05/21 21:01 Dose: 25 mg Documented by: Magnesium Hydroxide (Milk Of Magnesia 30 Ml Oral.Susp) 30 ml PO DAILY PRN PRN Reason: Constipation Methadone HCl (Methadone Hcl 20 Mg/2 Ml Oral.Conc) 120 mg PO DAILY [facility] Last Admin: 12/11/21 09:11 Dose: 120 mg Documented by: Omeprazole (Omeprazole 20 Mg Capsule.Dr) 20 mg PO BID@0630,1630 [facility] Last Admin: 12/11/21 09:12 Dose: 20 mg Documented by: Ondansetron HCl (Ondansetron Odt 8 Mg Tab.Rapdis) 8 mg TRANSLINGU Q8H PRN PRN Reason: nausea Quetiapine Fumarate (Quetiapine Fumarate 300 Mg Tablet) 300 mg PO BEDTIME [facility] Last Admin: 12/10/21 19:45 Dose: 300 mg Documented by: Quetiapine Fumarate (Quetiapine Fumarate 50 Mg Tablet) 50 mg PO Q6H PRN PRN Reason: anxiety, agitation Last Admin: 12/10/21 14:39 Dose: 50 mg Documented by: Thiamine HCl (Thiamine Hcl 100 Mg Tablet) 100 mg PO DAILY [facility] Last Admin: 12/11/21 09:12 Dose: 100 mg Documented by: Trazodone HCl (Trazodone Hcl 50 Mg Tablet) 50 mg PO BEDTIME PRN PRN Reason: Insomnia Last Admin: 11/29/21 21:00 Dose: 50 mg Documented by: Allergies Allergies Allergy/AdvReac Type Severity Reaction Status Date / Time No Known Allergies Allergy Verified 11/28/21 20:05 Assessment & Plan Assessment & Plan (1) Alcohol use disorder, moderate, dependence: Status: Acute Code(s): F10.20 - Alcohol dependence, uncomplicated (2) Cocaine use disorder, moderate, dependence: Status: Acute Code(s): F14.20 - Cocaine dependence, uncomplicated (3) MDD (major depressive disorder), recurrent episode, moderate: Status: Acute Code(s): F33.1 - Major depressive disorder, recurrent, moderate Plan Norbert is a 41 y.o. male who carries a dx of PTSD, Alcohol Use disorder, cocaine/ stimulant use disorder, IWONA, and MDD, recurrent. He recently has been abusing crystal meth, crack cocaine, and alcohol. Plan: 1. continue ciwa, so far his SBP <150, DBP<90 2. continue wellbutrin lower dose- 300mg po daily due to hx of alcohol withdrawal seizure. continue gabapentin, thiamine 3. continue methadone 12/03: increase seroquel to 300 mg QHS due to reported poor sleep and depressed mood. Discontinue CIWA and ativan, as pt is no longer in active withdrawal from ETOH. No seizures. 12/04: Start seroquel 50 mg Q6H PRN for anxiety, agitation. Qtc wnl. 12/05: Per pt request, d/c Wellbutrin XL. Wellbutrin 100 mg bid. Pt wanting bid dosing. 12/06/21: Per pt request continue Wellbutrin 100 mg bid. Pt looking at discharge referral resources. Sleep continues to be interrupted-encouraged to utilize prn Seroquel if needed. 12/08/21: Continue current regime. Discharge planning. 12/09/21: Continue current plan of care. 12/10/21: Continue current plan of care. Discharge planning. 12/11/21: Pt appears to have stabilized. Discharge planning I spent 25 minutes with the patient and/or on the patient floor today, greater than?50% of which was spent counseling/coordinating care. Reason for contiued inpatient stay Substantial Risk for: inability to function and rapid decompensation
[2021-12-11] MEDS: QUEtiapine Fumarate 50 MG TABLET PO (14:51)
[2021-12-11 19:45] VITALS: BP 111/59; PULSE 79; TEMP 36.4; O2SAT 97
[2021-12-11] MEDS: QUEtiapine Fumarate 300 MG TABLET PO (19:51)
[2021-12-12] MEDS: Omeprazole 20 MG CAPSULE.DR PO (06:54)
[2021-12-12 08:12] VITALS: BP 116/71; PULSE 73; RESP 16; TEMP 36.6; O2SAT 97
[2021-12-12] MEDS: cloNIDine HCL 0.2 MG TABLET PO ×2 (08:23→20:14)
[2021-12-12] MEDS: Gabapentin 400 MG CAPSULE 800 MG PO ×3 (08:23→20:15)
[2021-12-12] MEDS: Thiamine HCL 100 MG TABLET PO (08:24)
[2021-12-12] MEDS: buPROPion HCL 100 MG TABLET PO ×2 (08:24→12:09)
[2021-12-12] MEDS: methADONE HCl 20 MG/2 ML ORAL.CONC 120 MG PO (08:24)
[2021-12-12] MEDS: Famotidine 20 MG TABLET PO ×2 (08:24→20:15)
--- NOTE | 2021-12-12 15:42 | HO.PSYCHPN ---
Subjective Subjective Date of Service: 12/12/21 Reason For Visit: SI,etoh use DO Interim History: Organizing discharge-calling facilities he has been admitted to and organizing JANUARY for information for his methadone program. Reports medications are intact, helpful, without adverse effect. Preparing for discharge on 12/14/21. Medication Compliance: Yes Side effects from medications: No Attending Groups: Yes Review of Systems Acute medical concerns: No Medical Review of Systems: unchanged Review of Systems Reports behavioral changes Psychiatric: Reports anxiety, Reports behavioral changes and Reports suicidal ideation (denies) Mental Status Exam Mental Status Exam Patient Appearance: Appropriate Patient Orientation: Person, Place, Time and Situation Level of Consciousness: Alert Patient Behavior: Talkative and Good Eye Contact Mood Description: Anxious and Apprehensive Affect Description: Constricted Patient Cognition Impaired: No Ability to Follow Directions: Good Speech Pattern: Spontaneous Speech Memory Description: Episodic Impaired Hallucinations: None Delusions: Not Present Thought Process: Distracted Thought Content: positive for Circumstantial and positive for Suicidal Ideation (denies) Depressive Symptoms: Increased Anxiety and Thoughts of /Suicide (denies) Abnormal Motor Activity Signs and Symptoms: Restlessness Judgement: Fair Diagnostics Vital Signs (24Hr): Vital Signs - 24 hr 12/11/21 19:45 12/12/21 08:12 Temperature 97.6 F 97.8 F Pulse Rate 79 73 Respiratory Rate 16 Blood Pressure 111/59 L 116/71 Pulse Oximetry 97 97 BMI result Body Mass Index 29.0 Labs Results: 11/28/21 16:15 11/28/21 16:15 Medications Medications Current Medications Acetaminophen (Acetaminophen 325 Mg Tablet) 650 mg PO Q6H PRN PRN Reason: Headache/Pain Mild Scale (1-3) Al Hydroxide/Mg Hydroxide (Magnesium Hydrox/Alum Hydrox 30 Ml Oral.Susp) 30 ml PO Q6H PRN PRN Reason: Heartburn/Nausea Last Admin: 12/06/21 09:33 Dose: 30 ml Documented by: Bupropion HCl (Bupropion Hcl 100 Mg Tablet) 100 mg PO 0800,1200 [facility] Last Admin: 12/12/21 12:09 Dose: 100 mg Documented by: Clonidine HCl (Clonidine Hcl 0.2 Mg Tablet) 0.2 mg PO BID [facility]; Protocol Last Admin: 12/12/21 08:23 Dose: 0.2 mg Documented by: Docusate Sodium (Docusate Sodium 100 Mg Capsule) 100 mg PO BEDTIME PRN PRN Reason: constipation Famotidine (Famotidine 20 Mg Tablet) 20 mg PO BID [facility] Last Admin: 12/12/21 08:24 Dose: 20 mg Documented by: Gabapentin (Gabapentin 400 Mg Capsule) 800 mg PO TID [facility] Last Admin: 12/12/21 14:47 Dose: 800 mg Documented by: Hydroxyzine HCl (Hydroxyzine Hcl 25 Mg Tablet) 25 mg PO Q6H PRN PRN Reason: Anxiety Last Admin: 12/05/21 21:01 Dose: 25 mg Documented by: Magnesium Hydroxide (Milk Of Magnesia 30 Ml Oral.Susp) 30 ml PO DAILY PRN PRN Reason: Constipation Methadone HCl (Methadone Hcl 20 Mg/2 Ml Oral.Conc) 120 mg PO DAILY [facility] Last Admin: 12/12/21 08:24 Dose: 120 mg Documented by: Omeprazole (Omeprazole 20 Mg Capsule.Dr) 20 mg PO BID@0630,1630 [facility] Last Admin: 12/12/21 06:54 Dose: 20 mg Documented by: Ondansetron HCl (Ondansetron Odt 8 Mg Tab.Rapdis) 8 mg TRANSLINGU Q8H PRN PRN Reason: nausea Quetiapine Fumarate (Quetiapine Fumarate 300 Mg Tablet) 300 mg PO BEDTIME [facility] Last Admin: 12/11/21 19:51 Dose: 300 mg Documented by: Quetiapine Fumarate (Quetiapine Fumarate 50 Mg Tablet) 50 mg PO Q6H PRN PRN Reason: anxiety, agitation Last Admin: 12/11/21 14:51 Dose: 50 mg Documented by: Thiamine HCl (Thiamine Hcl 100 Mg Tablet) 100 mg PO DAILY [facility] Last Admin: 12/12/21 08:24 Dose: 100 mg Documented by: Trazodone HCl (Trazodone Hcl 50 Mg Tablet) 50 mg PO BEDTIME PRN PRN Reason: Insomnia Last Admin: 11/29/21 21:00 Dose: 50 mg Documented by: Allergies Allergies Allergy/AdvReac Type Severity Reaction Status Date / Time No Known Allergies Allergy Verified 11/28/21 20:05 Assessment & Plan Assessment & Plan (1) Alcohol use disorder, moderate, dependence: Status: Acute Code(s): F10.20 - Alcohol dependence, uncomplicated (2) Cocaine use disorder, moderate, dependence: Status: Acute Code(s): F14.20 - Cocaine dependence, uncomplicated (3) MDD (major depressive disorder), recurrent episode, moderate: Status: Acute Code(s): F33.1 - Major depressive disorder, recurrent, moderate Plan Norbert is a 41 y.o. male who carries a dx of PTSD, Alcohol Use disorder, cocaine/ stimulant use disorder, IWONA, and MDD, recurrent. He recently has been abusing crystal meth, crack cocaine, and alcohol. Plan: 1. continue ciwa, so far his SBP <150, DBP<90 2. continue wellbutrin lower dose- 300mg po daily due to hx of alcohol withdrawal seizure. continue gabapentin, thiamine 3. continue methadone 12/03: increase seroquel to 300 mg QHS due to reported poor sleep and depressed mood. Discontinue CIWA and ativan, as pt is no longer in active withdrawal from ETOH. No seizures. 12/04: Start seroquel 50 mg Q6H PRN for anxiety, agitation. Qtc wnl. 12/05: Per pt request, d/c Wellbutrin XL. Wellbutrin 100 mg bid. Pt wanting bid dosing. 12/06/21: Per pt request continue Wellbutrin 100 mg bid. Pt looking at discharge referral resources. Sleep continues to be interrupted-encouraged to utilize prn Seroquel if needed. 12/08/21: Continue current regime. Discharge planning. 12/09/21: Continue current plan of care. 12/10/21: Continue current plan of care. Discharge planning. 12/11/21: Pt appears to have stabilized. Discharge planning 12/12/21: Discharge 12/13/21. Pt is preparing for a return to the [facility]. I spent 15 minutes with the patient and/or on the patient floor today, greater than?50% of which was spent counseling/coordinating care. Patient educated on: medication risk/benefits and therapeutic strategies Informed Consent: understands Reason for contiued inpatient stay Substantial Risk for: inability to function and rapid decompensation
[2021-12-12 20:10] VITALS: BP 114/73; PULSE 66; TEMP 36.3
[2021-12-12] MEDS: QUEtiapine Fumarate 300 MG TABLET PO (20:15)
[2021-12-13 08:02] VITALS: BP 107/64; PULSE 62; RESP 18; TEMP 36.2; O2SAT 98
[2021-12-13] MEDS: methADONE HCl 20 MG/2 ML ORAL.CONC 120 MG PO (08:22)
[2021-12-13] MEDS: Famotidine 20 MG TABLET PO ×2 (08:23→20:08)
[2021-12-13] MEDS: Thiamine HCL 100 MG TABLET PO (08:23)
[2021-12-13] MEDS: Gabapentin 400 MG CAPSULE 800 MG PO ×2 (08:23→20:08)
[2021-12-13] MEDS: Omeprazole 20 MG CAPSULE.DR PO (08:23)
[2021-12-13] MEDS: buPROPion HCL 100 MG TABLET PO ×2 (08:23→11:58)
[2021-12-13] MEDS: cloNIDine HCL 0.2 MG TABLET PO ×2 (08:23→20:08)
[2021-12-13] MEDS: QUEtiapine Fumarate 50 MG TABLET PO (10:40)
--- NOTE | 2021-12-13 17:43 | P.PNPSI_ITS ---
Subjective Subjective Date of Service: 12/13/21 Reason For Visit: SI,etoh use DO Interim History: Norbert presented with irritability and isolation today. States he is prepared for discharge on 12/13 and has no current questions or concerns. Napping on and off this afternoon-declined to meet with tw. Medication Compliance: Yes Side effects from medications: No Attending Groups: No Review of Systems Acute medical concerns: No Medical Review of Systems: unchanged Review of Systems Reports behavioral changes Psychiatric: Reports anxiety, Reports behavioral changes and Reports suicidal ideation (denies) Mental Status Exam Mental Status Exam Patient Appearance: Appropriate Patient Orientation: Person, Place, Time and Situation Level of Consciousness: Alert Patient Behavior: Guarded and Good Eye Contact Mood Description: Anxious, Angry and Apprehensive Affect Description: Constricted Patient Cognition Impaired: No Ability to Follow Directions: Good Speech Pattern: Spontaneous Speech Memory Description: Episodic Impaired Hallucinations: None Delusions: Not Present Thought Process: Distracted Thought Content: positive for Circumstantial and positive for Suicidal Ideation (denies) Depressive Symptoms: Increased Anxiety and Thoughts of /Suicide (denies) Abnormal Motor Activity Signs and Symptoms: Restlessness Judgement: Good Diagnostics Vital Signs (24Hr): Vital Signs - 24 hr 12/12/21 20:10 12/13/21 08:02 Temperature 97.3 F 97.2 F Pulse Rate 66 62 Respiratory Rate 18 Blood Pressure 114/73 107/64 Pulse Oximetry 98 BMI result Body Mass Index 29.0 Labs Results: 11/28/21 16:15 11/28/21 16:15 Medications Medications Current Medications Acetaminophen (Acetaminophen 325 Mg Tablet) 650 mg PO Q6H PRN PRN Reason: Headache/Pain Mild Scale (1-3) Al Hydroxide/Mg Hydroxide (Magnesium Hydrox/Alum Hydrox 30 Ml Oral.Susp) 30 ml PO Q6H PRN PRN Reason: Heartburn/Nausea Last Admin: 12/06/21 09:33 Dose: 30 ml Documented by: Bupropion HCl (Bupropion Hcl 100 Mg Tablet) 100 mg PO 0800,1200 [facility] Last Admin: 12/13/21 11:58 Dose: 100 mg Documented by: Clonidine HCl (Clonidine Hcl 0.2 Mg Tablet) 0.2 mg PO BID [facility]; Protocol Last Admin: 12/13/21 08:23 Dose: 0.2 mg Documented by: Docusate Sodium (Docusate Sodium 100 Mg Capsule) 100 mg PO BEDTIME PRN PRN Reason: constipation Famotidine (Famotidine 20 Mg Tablet) 20 mg PO BID [facility] Last Admin: 12/13/21 08:23 Dose: 20 mg Documented by: Gabapentin (Gabapentin 400 Mg Capsule) 800 mg PO TID [facility] Last Admin: 12/13/21 16:13 Dose: Not Given Documented by: Hydroxyzine HCl (Hydroxyzine Hcl 25 Mg Tablet) 25 mg PO Q6H PRN PRN Reason: Anxiety Last Admin: 12/05/21 21:01 Dose: 25 mg Documented by: Magnesium Hydroxide (Milk Of Magnesia 30 Ml Oral.Susp) 30 ml PO DAILY PRN PRN Reason: Constipation Methadone HCl (Methadone Hcl 20 Mg/2 Ml Oral.Conc) 120 mg PO DAILY [facility] Last Admin: 12/13/21 08:22 Dose: 120 mg Documented by: Omeprazole (Omeprazole 20 Mg Capsule.Dr) 20 mg PO BID@0630,1630 [facility] Last Admin: 12/13/21 16:36 Dose: Not Given Documented by: Ondansetron HCl (Ondansetron Odt 8 Mg Tab.Rapdis) 8 mg TRANSLINGU Q8H PRN PRN Reason: nausea Quetiapine Fumarate (Quetiapine Fumarate 300 Mg Tablet) 300 mg PO BEDTIME [facility] Last Admin: 12/12/21 20:15 Dose: 300 mg Documented by: Quetiapine Fumarate (Quetiapine Fumarate 50 Mg Tablet) 50 mg PO Q6H PRN PRN Reason: anxiety, agitation Last Admin: 12/13/21 10:40 Dose: 50 mg Documented by: Thiamine HCl (Thiamine Hcl 100 Mg Tablet) 100 mg PO DAILY [facility] Last Admin: 12/13/21 08:23 Dose: 100 mg Documented by: Trazodone HCl (Trazodone Hcl 50 Mg Tablet) 50 mg PO BEDTIME PRN PRN Reason: Insomnia Last Admin: 11/29/21 21:00 Dose: 50 mg Documented by: Allergies Allergies Allergy/AdvReac Type Severity Reaction Status Date / Time No Known Allergies Allergy Verified 11/28/21 20:05 Assessment & Plan Assessment & Plan (1) Alcohol use disorder, moderate, dependence: Status: Acute Code(s): F10.20 - Alcohol dependence, uncomplicated (2) Cocaine use disorder, moderate, dependence: Status: Acute Code(s): F14.20 - Cocaine dependence, uncomplicated (3) MDD (major depressive disorder), recurrent episode, moderate: Status: Acute Code(s): F33.1 - Major depressive disorder, recurrent, moderate Plan Nobrert is a 41 y.o. male who carries a dx of PTSD, Alcohol Use disorder, cocaine/ stimulant use disorder, IWONA, and MDD, recurrent. He recently has been abusing crystal meth, crack cocaine, and alcohol. Plan: 1. continue ciwa, so far his SBP <150, DBP<90 2. continue wellbutrin lower dose- 300mg po daily due to hx of alcohol withdrawal seizure. continue gabapentin, thiamine 3. continue methadone 12/03: increase seroquel to 300 mg QHS due to reported poor sleep and depressed mood. Discontinue CIWA and ativan, as pt is no longer in active withdrawal from ETOH. No seizures. 12/04: Start seroquel 50 mg Q6H PRN for anxiety, agitation. Qtc wnl. 12/05: Per pt request, d/c Wellbutrin XL. Wellbutrin 100 mg bid. Pt wanting bid dosing. 12/06/21: Per pt request continue Wellbutrin 100 mg bid. Pt looking at discharge referral resources. Sleep continues to be interrupted-encouraged to utilize prn Seroquel if needed. 12/08/21: Continue current regime. Discharge planning. 12/09/21: Continue current plan of care. 12/10/21: Continue current plan of care. Discharge planning. 12/11/21: Pt appears to have stabilized. Discharge planning 12/12/21: Discharge 12/13/21. Pt is preparing for a return to the [facility]. 12/13/21: Discharge 12/14/21. Referrals are in place from addiction social worker. I spent 15 minutes with the patient and/or on the patient floor today, greater than?50% of which was spent counseling/coordinating care. Informed Consent: understands Reason for contiued inpatient stay Substantial Risk for: stable for discharge
[2021-12-13 19:50] VITALS: BP 139/60; PULSE 60
[2021-12-13] MEDS: QUEtiapine Fumarate 300 MG TABLET PO (20:08)
--- NOTE | 2021-12-14 05:42 | PM.PSYDC ---
DS: Providers Provider Date of Service: 12/14/21 Date of admission: 11/29/21 16:29 Date of discharge: 12/14/21 Primary care physician: None Physician Admitting clinician: Joann Caicedo Attending physician on admission: Martin Loredo Attending physician on discharge: Martin Loredo Discharging clinician: Cathie Blake DS: Diagnosis Discharge Diagnosis (1) MDD (major depressive disorder), recurrent episode, moderate: Status: Acute (2) Alcohol use disorder, moderate, dependence: Status: Acute (3) Cocaine use disorder, moderate, dependence: Status: Acute DS: Medications Discharge Medications Home Medications: Home Medications Medication Instructions Recorded Confirmed methadone 10 mg tablet 120 mg PO DAILY 11/29/21 11/29/21 Previous Rx's Medication Instructions Recorded bupropion HCl 150 mg tablet,12 hr 150 mg PO BID #30 tab 12/14/21 sustained-release clonidine HCl 0.2 mg tablet 0.2 mg PO BID #30 tab 12/14/21 docusate sodium 100 mg capsule 100 mg PO BEDTIME PRN #30 cap 12/14/21 famotidine 20 mg tablet 20 mg PO BID #60 tab 12/14/21 gabapentin 400 mg capsule 800 mg PO TID #42 cap 12/14/21 omeprazole 20 mg capsule,delayed 20 mg PO BID@0630,1630 #60 cap 12/14/21 release quetiapine 300 mg tablet 300 mg PO BEDTIME #15 tab 12/14/21 quetiapine 50 mg tablet 50 mg PO Q6H PRN #15 tab 12/14/21 thiamine HCl (vitamin B1) 100 mg 100 mg PO DAILY #30 tab 12/14/21 tablet (Vitamin B-1) Mental Status Exam Mental Status Exam Patient Appearance: Appropriate Patient Orientation: Person, Place, Time and Situation Level of Consciousness: Alert Patient Behavior: Guarded and Good Eye Contact Mood Description: Anxious, Angry and Apprehensive Affect Description: Constricted Patient Cognition Impaired: No Ability to Follow Directions: Good Speech Pattern: Spontaneous Speech Memory Description: Episodic Impaired Hallucinations: None Delusions: Not Present Thought Process: Distracted Thought Content: positive for Circumstantial and positive for Suicidal Ideation (denies) Depressive Symptoms: Increased Anxiety and Thoughts of /Suicide (denies) Abnormal Motor Activity Signs and Symptoms: Restlessness Judgement: Good Data Data Completed and Pending Completed studies during hospitalization [Text1]: 12/08/21 09:40 COVID-19 ([facility]) Negative COVID-19 Clin Com See Note DS: Summary Hospital Course Hospital Course: Admission to adult psychiatry to address symptoms of recurrent major depression, opiate use disorder, cocaine use disorder and alcohol use disorder. Care plan, medication regime and out patient plan of care prior to admission were reviewed. Education was probided regarding management of symptoms, medications and side effects. Nursing and social sciences professor worked with Norbert on collateral contacts, care planning, education regarding symptoms, medications and discharge planning. Seroquel was titrated. Gabapentin, Clonidine and Bupropion were continued. Norbert will return to Methadone clinic upon discharge. Time spent discussing smoking cessation with patient: 3 to 10 minutes Status at Discharge Functional status at discharge: independent ambulation Overall status at discharge: patient is progressing back to baseline Time Spent with Patient Time attestation: Total time spent providing and/or coordinating discharge services: 35 Time spent: Greater than 30 minutes Discharge Plan Discharge Patient Disposition: Xfer Other Discharge Diagnosis: Recurrent major depression, moderate Opioid use disorder-Methadone maintenance therapy Alcohol use disorder Stimulant use disorder-cocaine Referrals: Clinical Stabilization Services: [facility] ([facility]) [Other] - 1 Week (You have been referred for [facility] and have been added to their waitlist. Please contact the program at the above number to check on the status of your referral) Clinical Stabilization Services: [facility] ([facility]) [Other] - 1 Week (You have been referred for [facility] and have been added to their waitlist. Please contact the program at the above number to check on the status of your referral) Clinical Stabilization Services: [facility] ([facility]) [Other] - 1 Week (You have been referred for [facility] and have been added to their waitlist. Please contact the program at the above number to check on the status of your referral) Clinical Stabilization Services: [facility] [Other] - 1 Week (You have been referred for [facility] and have been added to their waitlist. Please contact the program at the above number to check on the status of your referral) Methadone: [facility] [Other] - 12/15/21 8:00 am (Please bring your last dose letter to being dosing on 12/15/21) Physician,None [Primary Care Provider] - 1 Week Discharge Medications: New quetiapine 300 mg Tablet 300 mg PO BEDTIME Qty: 15 1RF famotidine 20 mg Tablet 20 mg PO BID Qty: 60 0RF docusate sodium 100 mg Capsule 100 mg PO BEDTIME PRN (Reason: constipation) Qty: 30 0RF omeprazole 20 mg Capsule,Delayed Release(Dr/Ec) 20 mg PO BID@0630,1630 Qty: 60 0RF quetiapine 50 mg Tablet 50 mg PO Q6H PRN (Reason: anxiety, agitation) Qty: 15 1RF Continued methadone 10 mg Tablet 120 mg PO DAILY 0RF bupropion HCl 150 mg tablet sustained-release 12 hr 150 mg PO BID Qty: 30 1RF gabapentin 400 mg capsule 800 mg PO TID Qty: 42 1RF thiamine HCl (vitamin B1) [Vitamin B-1] 100 mg tablet 100 mg PO DAILY Qty: 30 0RF clonidine HCl 0.2 mg tablet 0.2 mg PO BID Qty: 30 1RF Discontinued quetiapine 200 mg tablet 200 mg PO BEDTIME 0RF Discharge Orders: Discharge Order (Routine); Ordered 12/14/21 Ordered By: Cathie Blake Diet: advance to usual diet Activity on Discharge: As tolerated Stand Alone Forms: Patient Portal Discharge page, Community Support Care Plan Goals: Mood stabilization Sobriety Health Concerns: Major depression Opiate use disorder-Methadone maintenance therapy Alcohol use disorder Stimulant use disorder-cocaine Plan of Treatment: Attend scheduled appointments Take medications as directed Return to Methadone program Assessment: non-psychotic, non-suicidal Discharge Date/Time: 12/14/21 13:45
[2021-12-14 06:00] VITALS: BP 97/55; PULSE 58; RESP 16; O2SAT 100
[2021-12-14] MEDS: methADONE HCl 20 MG/2 ML ORAL.CONC 120 MG PO (08:53)
[2021-12-14] MEDS: Gabapentin 400 MG CAPSULE 800 MG PO (08:53)
[2021-12-14] MEDS: Omeprazole 20 MG CAPSULE.DR PO (08:54)
[2021-12-14] MEDS: buPROPion HCL 100 MG TABLET PO ×2 (08:54→12:13)
[2021-12-14] MEDS: Famotidine 20 MG TABLET PO (08:54)
[2021-12-14] MEDS: Thiamine HCL 100 MG TABLET PO (08:54)
--- NOTE | 2021-12-14 18:16 | P.DS_ITS ---
DS: Providers Provider Date of admission: 11/29/21 16:29 Primary care physician: None Physician DS: Diagnosis Discharge Diagnosis (1) Alcohol use disorder, moderate, dependence: Status: Acute (2) Cocaine use disorder, moderate, dependence: Status: Acute (3) MDD (major depressive disorder), recurrent episode, moderate: Status: Acute DS: Medications Discharge Medications Home Medications: Home Medications Medication Instructions Recorded Confirmed methadone 10 mg tablet 120 mg PO DAILY 11/29/21 11/29/21 Previous Rx's Medication Instructions Recorded bupropion HCl 150 mg tablet,12 hr 150 mg PO BID #30 tab 12/14/21 sustained-release clonidine HCl 0.2 mg tablet 0.2 mg PO BID #30 tab 12/14/21 docusate sodium 100 mg capsule 100 mg PO BEDTIME PRN #30 cap 12/14/21 famotidine 20 mg tablet 20 mg PO BID #60 tab 12/14/21 gabapentin 400 mg capsule 800 mg PO TID #42 cap 12/14/21 omeprazole 20 mg capsule,delayed 20 mg PO BID@0630,1630 #60 cap 12/14/21 release quetiapine 300 mg tablet 300 mg PO BEDTIME #15 tab 12/14/21 quetiapine 50 mg tablet 50 mg PO Q6H PRN #15 tab 12/14/21 thiamine HCl (vitamin B1) 100 mg 100 mg PO DAILY #30 tab 12/14/21 tablet (Vitamin B-1) Data Data Completed and Pending Completed studies during hospitalization [Text1]: 12/08/21 09:40 COVID-19 ([facility]) Negative COVID-19 Clin Com See Note DS: Summary Time Spent with Patient Time attestation: Total time spent providing and/or coordinating discharge services: Discharge Plan Discharge Patient Disposition: Xfer Other Discharge Diagnosis: Recurrent major depression, moderate Opioid use disorder-Methadone maintenance therapy Alcohol use disorder Stimulant use disorder-cocaine Referrals: Clinical Stabilization Services: [facility] ([facility]) [Other] - 1 Week (You have been referred for [facility] and have been added to their waitlist. Please contact the program at the above number to check on the status of your referral) Clinical Stabilization Services: [facility] ([facility]) [Other] - 1 Week (You have been referred for [facility] and have been added to their waitlist. Please contact the program at the above number to check on the status of your referral) Clinical Stabilization Services: [facility] ([facility]) [Other] - 1 Week (You have been referred for [facility] and have been added to their waitlist. Please contact the program at the above number to check on the status of your referral) Clinical Stabilization Services: [facility] [Other] - 1 Week (You have been referred for [facility] and have been added to their waitlist. Please contact the program at the above number to check on the status of your referral) Methadone: [facility] [Other] - 12/15/21 8:00 am (Please bring your last dose letter to being dosing on 12/15/21) Physician,None [Primary Care Provider] - 1 Week Discharge Medications: New quetiapine 300 mg Tablet 300 mg PO BEDTIME Qty: 15 1RF famotidine 20 mg Tablet 20 mg PO BID Qty: 60 0RF docusate sodium 100 mg Capsule 100 mg PO BEDTIME PRN (Reason: constipation) Qty: 30 0RF omeprazole 20 mg Capsule,Delayed Release(Dr/Ec) 20 mg PO BID@0630,1630 Qty: 60 0RF quetiapine 50 mg Tablet 50 mg PO Q6H PRN (Reason: anxiety, agitation) Qty: 15 1RF Continued methadone 10 mg Tablet 120 mg PO DAILY 0RF bupropion HCl 150 mg tablet sustained-release 12 hr 150 mg PO BID Qty: 30 1RF gabapentin 400 mg capsule 800 mg PO TID Qty: 42 1RF thiamine HCl (vitamin B1) [Vitamin B-1] 100 mg tablet 100 mg PO DAILY Qty: 30 0RF clonidine HCl 0.2 mg tablet 0.2 mg PO BID Qty: 30 1RF Discontinued quetiapine 200 mg tablet 200 mg PO BEDTIME 0RF Discharge Orders: Discharge Order (Routine); Ordered 12/14/21 Ordered By: Cathie Blake Diet: advance to usual diet Activity on Discharge: As tolerated Stand Alone Forms: Patient Portal Discharge page, Community Support Care Plan Goals: Mood stabilization Sobriety Health Concerns: Major depression Opiate use disorder-Methadone maintenance therapy Alcohol use disorder Stimulant use disorder-cocaine Plan of Treatment: Attend scheduled appointments Take medications as directed Return to Methadone program Discharge Date/Time: 12/14/21 13:45
== END 2021-12-14 13:45 | disposition other institution (70) | DRG 751 ==
LOC: HO.ED 17:16 → HO.PM5 11-29 16:36
PROVIDERS: Nurse Practitioner Family; Physician Assistant; Social Worker; Admitting Provider Psychiatry & Neurology Psychiatry; Emergency Provider Emergency Medicine Emergency Medical Services; Visit Provider Clinical Nurse Specialist Psychiatric/Mental Health, Adult
DX: F33.1 Major depressive disorder, recurrent, moderate (principal); R45.851 Suicidal ideations; F11.20 Opioid dependence, uncomplicated; F14.20 Cocaine dependence, uncomplicated; F10.20 Alcohol dependence, uncomplicated; Z20.822 Contact with and (suspected) exposure to COVID-19; Z87.891 Personal history of nicotine dependence; Z79.899 Other long term (current) drug therapy
CPT/HCPCS: 36415; 80048; 80076; 80307; 82077; 85025; 87635; 93005; 99285

== ENCOUNTER 2022-09-01 22:08 | Inpatient (IN) | payer MEDICAID, SELFPAY ==
--- NOTE | ~2022-09-01 | CT_ITS ---
EXAMINATION: CT CHEST WITHOUT CONTRAST CLINICAL INFORMATION: Lung nodule. COMPARISON: Chest x-ray 09/01/2022 TECHNIQUE: Multidetector volumetric CT imaging of the chest was done. Axial MIP volume rendering provided. Sagittal and coronal reformatted images were obtained. This CT examination was performed using dose optimization techniques as appropriate, variously including the following: *Automated exposure control *Adjustment of mA and/or kV according to patient size (this includes techniques or standardized protocols for targeted exams where dose is matched to indication/reason for exam; i.e. extremities or head) *Use of iterative reconstruction technique DLP: 4:30 mGy-cm FINDINGS: SUPPLY CHAIN LOGISTICS MANAGER: Unremarkable. LUNGS: The lungs are well-expanded and clear of acute pneumonic process. There is platelike atelectasis left lower lobe, lingula and the left upper lobe. No pulmonary nodule or mass seen in the lungs especially in the right lower lobe or the right middle lobe as was suspected on the chest x-ray. MEDIASTINUM: The thyroid lobes are symmetrical and normal. The central trachea and the bronchi widely patent. The heart size and the great vessels are normal caliber. No pericardial effusion seen. There is no abnormal mediastinal or hilar lymph nodes. CORONARY ARTERY CALCIFICATION: None visualized on this study. PLEURA: There is mild left pleural thickening with scattered pleural calcification along the posterior lungs. Minimal right posterior pleural thickening is also seen. AXILLA: No lymphadenopathy. UPPER ABDOMEN: Visualized liver, spleen, pancreas appears unremarkable. The gallbladder has been surgically removed. OSSEOUS STRUCTURES: No aggressive lytic or sclerotic process seen. CT/CT chest wo IV con IMPRESSION: 1. No pulmonary nodule or mass seen in the right lower or right middle lobe as was suspected on the chest x-ray. It was likely an artifact. 2. There is platelike atelectasis in the left lower lobe, lingula and left upper lobe. There is mild left pleural thickening with scattered pleural calcification. Minimal right posterior pleural thickening is also seen. Fleischner guidelines were followed.
--- NOTE | ~2022-09-01 | CT_ITS ---
EXAMINATION: CT HEAD WITHOUT CONTRAST CLINICAL INFORMATION: Altered mental status COMPARISON: None TECHNIQUE: Contiguous axial imaging was performed from the skull base to vertex without intravenous administration of contrast. This CT examination was performed using dose optimization techniques as appropriate, variously including the following: *Automated exposure control *Adjustment of mA and/or kV according to patient size (this includes techniques or standardized protocols for targeted exams where dose is matched to indication/reason for exam; i.e. extremities or head) *Use of iterative reconstruction technique DLP: 790 mGy-cm FINDINGS: There is no evidence of acute intracranial hemorrhage or territorial infarction. No abnormal mass-effect or midline shift is seen. Spears to white matter differentiation is well preserved. No extra-axial fluid collections are identified. The ventricles are normal in size. There is no abnormal attenuation within the brain parenchyma. The osseous structures and soft tissues are normal. Partial opacification of the right maxillary and sphenoid sinuses. Mucosal thickening of the left maxillary sinus. The mastoid air cells are well-aerated. CT/CT head/brain wo IV con IMPRESSION: No acute intracranial pathology.
--- NOTE | ~2022-09-01 | XR_ITS ---
EXAMINATION: XR CHEST CLINICAL INFORMATION: Altered mental status. COMPARISON: None TECHNIQUE: Frontal view of the chest was obtained. FINDINGS: The cardiomediastinal silhouette is within normal limits. EKG wires overlie the chest. There is a 1.7 cm nodularity projecting over the right lower lobe. Otherwise, clear lungs. No pleural effusion. No pneumothorax. No acute osseous abnormalities. XR/XR chest 1V IMPRESSION: 1. 1.7 cm nodularity projecting over the right lower lobe. Recommend correlation with a nonemergent chest CT. 2. Otherwise, clear lungs. No pleural effusion or pneumothorax. 3. No acute osseous abnormalities.
[2022-09-01 22:11] VITALS: BP 114/89; BP 118/82; PULSE 60; PULSE 63; RESP 12; TEMP 36.5; O2SAT 95; O2SAT 96; BMI 33.0
--- NOTE | 2022-09-01 22:32 | ECG_ITS ---
Test Reason : OVERDOSE Blood Pressure : / mmHG Vent. Rate : 060 BPM Atrial Rate : 060 BPM P-R Int : 158 ms QRS Dur : 106 ms QT Int : 432 ms P-R-T Axes : 055 -20 036 degrees QTc Int : 432 ms Normal sinus rhythm RSR' or QR pattern in V1 suggests right ventricular conduction delay Intra-ventricular conduction delay Left axis deviation Abnormal ECG When compared with ECG of 29-NOV-2021 11:22, No significant change was found Referred By: Ambreen Monaco Electronically Signed By:NGOZI SALGUERO MD
--- NOTE | 2022-09-01 22:39 | ED_ITS ---
HPI - Altered Mental Status General Chief Complaint: Altered Mental Status Stated Complaint: AMS Time Seen by Provider: 09/01/22 22:30 Source: patient and EMS Mode of arrival: EMS Limitations: altered mental status History of Present Illness HPI narrative: 41-year-old male presents via EMS for altered mental status. Patient was found unconscious on the ground behind the hospital. Patient is arousable, has dilat ed pupils, and appears to be intoxicated. Patient is responsive and to sternal rub. MD complaint: altered mental status and decreased responsiveness Onset (ago): unknown Timing confirmed by: other (PD) Severity: severe Consistency of symptoms: waxing and waning Context: alcohol abuse, drug abuse and unknown Related Data Home Medications Medication Instructions Recorded Confirmed methadone 10 mg tablet 120 mg PO DAILY 11/29/21 11/29/21 Previous Rx's Medication Instructions Recorded bupropion HCl 150 mg tablet,12 hr 150 mg PO BID #30 tabs 12/14/21 sustained-release clonidine HCl 0.2 mg tablet 0.2 mg PO BID #30 tabs 12/14/21 docusate sodium 100 mg capsule 100 mg PO BEDTIME PRN constipation 12/14/21 #30 caps famotidine 20 mg tablet 20 mg PO BID #60 tabs 12/14/21 gabapentin 400 mg capsule 800 mg PO TID #42 caps 12/14/21 omeprazole 20 mg capsule,delayed 20 mg PO BID@0630,1630 #60 caps 12/14/21 release quetiapine 300 mg tablet 300 mg PO BEDTIME #15 tabs 12/14/21 quetiapine 50 mg tablet 50 mg PO Q6H PRN anxiety, 12/14/21 agitation #15 tabs thiamine HCl (vitamin B1) 100 mg 100 mg PO DAILY #30 tabs 12/14/21 tablet (Vitamin B-1) Allergies Allergy/AdvReac Type Severity Reaction Status Date / Time No Known Allergies Allergy Verified 11/28/21 20:05 Review of Systems Review of Systems: Yes Unobtainable due to mental status PMFSH Past Medical History Attestation statement: The following information was validated with the patient. Source: old records reviewed Social History Social History Household Members: None Housing: Homeless Do you presently have visiting nurse or other home services: No Patient Tobacco Use Status: Former Tobacco user e-Cigarette/Vaping Use: Never Used Substance Use Type: Crack/Cocaine Advance Directives: No Advance Directives Information Provided: No service: No Sexual orientation: Did not discuss Physical Exam ED Vital Signs: Vital Signs - 24 hr 09/01/22 22:11 09/01/22 23:59 09/02/22 01:10 Temperature 97.7 F 96.3 F L Pulse Rate 63 54 60 Respiratory Rate 12 12 12 Blood Pressure 114/89 114/79 119/77 Pulse Oximetry 96 97 97 Oxygen Delivery Method Room Air Room Air Room Air BMI result Body Mass Index 33.0 Appearance: Responsive to sternal rub. Eyes: Bilaterally dilated pupils, responsive to light. ENT: Pharynx normal. Neck: Normal inspection. Neck supple. CVS: Normal heart rate and rhythm. Pulses normal. Respiratory: No respiratory distress. Breath sounds normal. Abdomen: Soft and nontender. Skin: Multiple abrasions to bilateral hands. Skin warm and dry. Normal skin color. Normal skin turgor. Extremities: No lower extremity edema. Moves extremities against resistance. Gait not assessed for safety. Neuro: No motor deficit. No sensory deficit. Cranial nerves 2-12 intact. Course Course Course Narrative: 41-year-old male presents via EMS for altered mental status, found unconscious on the ground behind the hospital, stated that he was sleeping. He is responsi ve to sternal rub, and is not making sense when he speaks. Falls asleep almost instantly after sternal rubbing. Patient has presented to this facility in the past for cocaine dependence, alcohol use disorder, and major depressive disorder. Patient's last admission to [facility] on 11/29/2021 for alcohol dependence. Patient has been admitted at the LOC at [facility] and has a history of self-injurious behaviors. Patient is generally not adherent to psychiatric medications. Will order labs, CT scan of the head, will straight cath for urine, chest x-ray, and EKG. Unable to accurately assess NIH stroke, GCS on arrival 11. 22:46 straight cath for urine by this NATURAL RESOURCE SPECIALIST. Patient to CT scan. 23:20 Chest x-ray head CT negative, EKG normal sinus, tox screen positive for benzos. Temperature is 96.3 degrees, Sheldon Calloway initiated multiple attempts for IV start unsuccessful by this NATURAL RESOURCE SPECIALIST as well as RN. 01:[address] Soliz. BUN 20, creatinine 1.43, will give 2 L normal saline for DAINELA. Potassium is 5.6, at this time we will not correct this value, will repeat lab values after fluid resuscitation complete. White count is 11, infection is not likely at this time, I feel that patient is intoxicated on the substance that this facility does not test for. 01:28 GCS 15. Patient will be admitted to hospitalist for altered mental status, hypothermia, and DANIELA. Consultations Consultation #1: Zhane Time: 01:32 MDM - Altered Mental Status Differential Diagnosis Differential diagnosis: Likely alcoholic intoxication, altered mental status, delirium, encephalopathy, hypoglycemia, hyponatremia, overdose polysubstance, renal failure, subarachnoid hemorrhage and sepsis Medical Records Attestation: I reviewed the patient's medical records. Lab Data Attestation: I reviewed the patient's lab results. Result diagrams: 09/01/22 23:16 09/01/22 23:16 Labs: Lab Results 09/01/22 09/01/22 09/01/22 Range/Units 22:39 22:47 22:47 WBC (4.8-10.8) X10*3/uL RBC (4.60-5.80) X10*6/uL Hgb (14.0-18.0) g/dl Hct (42.0-52.0) % MCV (80.0-98.0) fL MCH (27.0-33.0) pg MCHC (31.0-36.0) g/dl RDW (11.0-16.0) % Plt Count (160-400) X10*3/uL MPV (9.4-12.4) fL Immature Gran % (Auto) (0.0-0.4) % Neut % (Auto) (45-73) % Lymph % (Auto) (20-40) % [place] % (Auto) (2-11) % Eos % (Auto) (0-4) % Baso % (Auto) (0-2) % Lymph # (Auto) (1.2-4.9) X10*3/uL [place] # (Auto) (0.1-1.2) X10*3/uL Eos # (Auto) (0.0-0.4) X10*3/uL Baso # (Auto) (0.0-0.2) X10*3/uL Abs Immat Gran (auto) (0.00-0.03) X10*3/uL Absolute Neuts (auto) (2.0-8.3) x10*3/uL Absolute Nucleated RBC (0.0-0.012) X10*3/uL Nucleated RBC % (auto) (0.0-0.2) /100WBC Sodium (135-145) mmol/L Potassium (3.3-5.1) mmol/L Chloride (96-108) mmol/L Carbon Dioxide (22-29) mmol/L Anion Gap (12-20) BUN (9-16) mg/dL Creatinine (0.5-1.4) mg/dL Estim Creat Clear Calc Estimated GFR POC Glucose 92 (60-115) mg/dL Random Glucose (60-115) mg/dL Calcium (8.4-10.2) mg/dL Total Bilirubin (0.0-1.0) mg/dL Direct Bilirubin (0.0-0.5) mg/dL AST (5-37) U/L ALT (0-40) U/L Alkaline Phosphatase (39-117) U/L Troponin I High Sens (<3.5-35.0) ng/L Total Protein (6.5-8.0) g/dL Albumin (3.5-5.0) g/dL Lipase (8-78) U/L Urine Color Yellow Urine Appearance Clear Urine pH 6.0 (5.0-9.0) Ur Specific [place] 1.025 (1.005-1.025) Urine Protein Trace (Neg-Trace) mg/dL Urine Glucose (UA) Negative (Negative) mg/dL Urine Ketones Trace (Negative) mg/dL Urine Blood Negative (Negative) Urine Nitrite Negative (Negative) Ur Leukocyte Esterase Negative (Negative) Urine Opiates Screen Not Detected (Not Detect) Urine Fentanyl Screen Not Detected (Not Detect) Ur Barbiturates Screen Not Detected (Not Detect) Ur Phencyclidine Scrn Not Detected (Not Detect) Ur Amphetamines Screen POSITIVE H (Not Detect) U Benzodiazepines Scrn Not Detected (Not Detect) Urine Cocaine Screen Not Detected (Not Detect) U Marijuana (THC) Screen Not Detected (Not Detect) Ethyl Alcohol mg/dL 09/01/22 09/01/22 09/01/22 Range/Units 23:16 23:16 23:16 WBC 11.0 H (4.8-10.8) X10*3/uL RBC 5.45 (4.60-5.80) X10*6/uL Hgb 16.2 (14.0-18.0) g/dl Hct 46.7 (42.0-52.0) % MCV 85.7 (80.0-98.0) fL MCH 29.7 (27.0-33.0) pg MCHC 34.7 (31.0-36.0) g/dl RDW 12.5 (11.0-16.0) % Plt Count 121 L (160-400) X10*3/uL MPV 11.2 (9.4-12.4) fL Immature Gran % (Auto) 0.3 (0.0-0.4) % Neut % (Auto) 73.5 H (45-73) % Lymph % (Auto) 20.6 (20-40) % [place] % (Auto) 4.5 (2-11) % Eos % (Auto) 0.9 (0-4) % Baso % (Auto) 0.2 (0-2) % Lymph # (Auto) 2.3 (1.2-4.9) X10*3/uL [place] # (Auto) 0.5 (0.1-1.2) X10*3/uL Eos # (Auto) 0.1 (0.0-0.4) X10*3/uL Baso # (Auto) 0.0 (0.0-0.2) X10*3/uL Abs Immat Gran (auto) 0.03 (0.00-0.03) X10*3/uL Absolute Neuts (auto) 8.1 (2.0-8.3) x10*3/uL Absolute Nucleated RBC 0.000 (0.0-0.012) X10*3/uL Nucleated RBC % (auto) 0.0 (0.0-0.2) /100WBC Sodium 138 (135-145) mmol/L Potassium 5.6 H D (3.3-5.1) mmol/L Chloride 104 (96-108) mmol/L Carbon Dioxide 19 L (22-29) mmol/L Anion Gap 21 H (12-20) BUN 20 H D (9-16) mg/dL Creatinine 1.43 H (0.5-1.4) mg/dL Estim Creat Clear Calc 83.1 Estimated GFR 55 POC Glucose (60-115) mg/dL Random Glucose 90 (60-115) mg/dL Calcium 10.1 D (8.4-10.2) mg/dL Total Bilirubin 0.8 (0.0-1.0) mg/dL Direct Bilirubin 0.3 (0.0-0.5) mg/dL AST 40 H D (5-37) U/L ALT 42 H (0-40) U/L Alkaline Phosphatase 108 (39-117) U/L Troponin I High Sens < 3.5 (<3.5-35.0) ng/L Total Protein 10.0 H (6.5-8.0) g/dL Albumin 5.2 H D (3.5-5.0) g/dL Lipase 45 (8-78) U/L Urine Color Urine Appearance Urine pH (5.0-9.0) Ur Specific [place] (1.005-1.025) Urine Protein (Neg-Trace) mg/dL Urine Glucose (UA) (Negative) mg/dL Urine Ketones (Negative) mg/dL Urine Blood (Negative) Urine Nitrite (Negative) Ur Leukocyte Esterase (Negative) Urine Opiates Screen (Not Detect) Urine Fentanyl Screen (Not Detect) Ur Barbiturates Screen (Not Detect) Ur Phencyclidine Scrn (Not Detect) Ur Amphetamines Screen (Not Detect) U Benzodiazepines Scrn (Not Detect) Urine Cocaine Screen (Not Detect) U Marijuana (THC) Screen (Not Detect) Ethyl Alcohol mg/dL 09/01/22 Range/Units 23:16 WBC (4.8-10.8) X10*3/uL RBC (4.60-5.80) X10*6/uL Hgb (14.0-18.0) g/dl Hct (42.0-52.0) % MCV (80.0-98.0) fL MCH (27.0-33.0) pg MCHC (31.0-36.0) g/dl RDW (11.0-16.0) % Plt Count (160-400) X10*3/uL MPV (9.4-12.4) fL Immature Gran % (Auto) (0.0-0.4) % Neut % (Auto) (45-73) % Lymph % (Auto) (20-40) % [place] % (Auto) (2-11) % Eos % (Auto) (0-4) % Baso % (Auto) (0-2) % Lymph # (Auto) (1.2-4.9) X10*3/uL [place] # (Auto) (0.1-1.2) X10*3/uL Eos # (Auto) (0.0-0.4) X10*3/uL Baso # (Auto) (0.0-0.2) X10*3/uL Abs Immat Gran (auto) (0.00-0.03) X10*3/uL Absolute Neuts (auto) (2.0-8.3) x10*3/uL Absolute Nucleated RBC (0.0-0.012) X10*3/uL Nucleated RBC % (auto) (0.0-0.2) /100WBC Sodium (135-145) mmol/L Potassium (3.3-5.1) mmol/L Chloride (96-108) mmol/L Carbon Dioxide (22-29) mmol/L Anion Gap (12-20) BUN (9-16) mg/dL Creatinine (0.5-1.4) mg/dL Estim Creat Clear Calc Estimated GFR POC Glucose (60-115) mg/dL Random Glucose (60-115) mg/dL Calcium (8.4-10.2) mg/dL Total Bilirubin (0.0-1.0) mg/dL Direct Bilirubin (0.0-0.5) mg/dL AST (5-37) U/L ALT (0-40) U/L Alkaline Phosphatase (39-117) U/L Troponin I High Sens (<3.5-35.0) ng/L Total Protein (6.5-8.0) g/dL Albumin (3.5-5.0) g/dL Lipase (8-78) U/L Urine Color Urine Appearance Urine pH (5.0-9.0) Ur Specific [place] (1.005-1.025) Urine Protein (Neg-Trace) mg/dL Urine Glucose (UA) (Negative) mg/dL Urine Ketones (Negative) mg/dL Urine Blood (Negative) Urine Nitrite (Negative) Ur Leukocyte Esterase (Negative) Urine Opiates Screen (Not Detect) Urine Fentanyl Screen (Not Detect) Ur Barbiturates Screen (Not Detect) Ur Phencyclidine Scrn (Not Detect) Ur Amphetamines Screen (Not Detect) U Benzodiazepines Scrn (Not Detect) Urine Cocaine Screen (Not Detect) U Marijuana (THC) Screen (Not Detect) Ethyl Alcohol < 10 mg/dL Imaging Data Chest x-ray: Attestation: I personally reviewed and interpreted this imaging study as follows: Radiologist's impression: EXAMINATION: XR CHEST CLINICAL INFORMATION: Altered mental status. COMPARISON: None TECHNIQUE: Frontal view of the chest was obtained. FINDINGS: The cardiomediastinal silhouette is within normal limits. EKG wires overlie the chest. There is a 1.7 cm nodularity projecting over the right lower lobe. Otherwise, clear lungs. No pleural effusion. No pneumothorax. No acute osseous abnormalities. XR/XR chest 1V IMPRESSION: 1.? 1.7 cm nodularity projecting over the right lower lobe. Recommend correlation with a nonemergent chest CT. 2.? Otherwise, clear lungs. No pleural effusion or pneumothorax. 3.? No acute osseous abnormalities. ? CT scan - head: Attestation: I personally reviewed and interpreted this imaging study as follows: Radiologist's impression: FINDINGS: There is no evidence of acute intracranial hemorrhage or territorial infarction. No abnormal mass-effect or midline shift is seen. Spears to white matter differentiation is well preserved. No extra-axial fluid collections are identified. The ventricles are normal in size. There is no abnormal attenuation within the brain parenchyma. The osseous structures and soft tissues are normal. Partial opacification of the right maxillary and sphenoid sinuses. Mucosal thickening of the left maxillary sinus. The mastoid air cells are well-aerated. ? CT/CT head/brain wo IV con IMPRESSION: No acute intracranial pathology. ECG Data ECG #1: ECG interpretation date: 09/01/22 ECG interpretation time: 22:36 Prior ECG tracings: available for review Interpretation: Vent. rate 60 BPM WV interval 158 ms QRS duration 106 ms QT/QTc 432/432 ms P-R-T axes 55 -20 36 Normal sinus rhythm Normal ECG When compared with ECG of 29-NOV-2021 11:22, No significant change was found Critical Care Time Critical Care Time Critical Care Time: Yes Total Critical Care Time: 75 Attestation: I have personally provided critical care time exclusive of time spent on separately billable procedures. Time includes review of laboratory data, radiology results, discussion with consultants, and monitoring for potential decompensation. Interventions were performed as documented. Discharge Plan Discharge Prescriptions: No Action methadone 10 mg Tablet 120 mg PO DAILY quetiapine 300 mg Tablet 300 mg PO BEDTIME Qty: 15 1RF famotidine 20 mg Tablet 20 mg PO BID Qty: 60 0RF docusate sodium 100 mg Capsule 100 mg PO BEDTIME PRN (Reason: constipation) Qty: 30 0RF omeprazole 20 mg Capsule,Delayed Release(Dr/Ec) 20 mg PO BID@0630,1630 Qty: 60 0RF quetiapine 50 mg Tablet 50 mg PO Q6H PRN (Reason: anxiety, agitation) Qty: 15 1RF bupropion HCl 150 mg tablet sustained-release 12 hr 150 mg PO BID Qty: 30 1RF gabapentin 400 mg capsule 800 mg PO TID Qty: 42 1RF thiamine HCl (vitamin B1) [Vitamin B-1] 100 mg tablet 100 mg PO DAILY Qty: 30 0RF clonidine HCl 0.2 mg tablet 0.2 mg PO BID Qty: 30 1RF
--- OUTSIDE RECORDS SUMMARY | 2022-09-01 22:44 | XMS_ITS ---
:1980 Author Care Team Providers Name Role Phone Nga Haney Primary Care Provider Unavailable Allergies Code Code System Name Reaction Severity Status Onset NKDA ? Medications Name Status Start Date Stop Date ? ? bupropion HCl 100 mg tablet Active ? Not available bupropion HCl SR 100 mg tablet,12 hr sustained-release Active ? Not available bupropion HCl SR 150 mg tablet,12 hr sustained-release Active ? Not available bupropion HCl SR 200 mg tablet,12 hr sustained-release Active ? Not available TAKE 1 TABLET BY MOUTH EVERY MORNING bupropion HCl XL 300 mg 24 hr tablet, extended release Active ? Not available clonidine HCl 0.1 mg tablet Active ? Not available folic acid 1 mg tablet Active ? Not avail able gabapentin 400 mg capsule Active ? Not av ailable gabapentin 800 mg tablet Active ? Not maria ines ilable gnp melatonin 3 mg tabs Active ? Not avai lable hydroxyzine HCl 50 mg tablet Active ? Not available TAKE 1 TABLET BY MOUTH EVERY NIGHT AT BEDTIME melatonin 3 mg tablet Active ? Not availa ble nicotine (polacrilex) 2 mg gum Active ? N ot available nicotine 21 mg/24 hr daily transdermal patch Active ? Not available perphenazine 2 mg tablet Active ? Not maria ines ilable TAKE 1 TABLET BY MOUTH THREE TIMES DAILY NEEDED perphenazine 4 mg tablet Active ? Not maria ines ilable Problems No Known Problems Procedures None recorded. Results Lab Results Date Name Specimen Result Interpretation Description Value Range Status Address ? 10/12/2021 SARS CoV 2 Nose ? Specimen nose (bilat. ? ? In-Office RNA, QL, (nasal Source mid-turbinates) Order: HONG+probe, passage) Inte rnal Use Respiratory Only DO Not Specimen Attach Compendium DO Not Attach Compendium , Do Not Delete/earl ge ? ? Nose ? Result neg ? ? In-Office (nasal Order: passage) Internal Use Only DO No t Attach Compendium DO Not Attach Compendium , Do Not Delete/earl ge Past Encounters 10/12/2021 Suspected Coronavirus Infection Nga Haney, DIAMOND GRINDER: [phone], [facility], [place] [address], Ph. Social History None recorded. Vaccine List None recorded. Plan of Care Reminders Provider Appointments None recorded. ? ? Lab None recorded. ? ? Referral None recorded. ? ? Procedures None recorded. ? ? Surgeries None recorded. ? ? Imaging None recorded. ? ? Vitals None recorded.
[2022-09-01 22:53] LABS: Glucose, Whole Blood 92 mg/dL (60-115)
[2022-09-01 22:55] LABS: Appearance Urine Clear; Color Urine Yellow; Glucose Urine UA Negative (Negative); Leukocyte Esterase Urine Negative (Negative); Nitrite Urine Negative (Negative); Specific Gravity - Urine 1.025 (1.005-1.025); Urine Blood Negative (Negative); Urine Ketones Trace mg/dL (Negative); Urine Protein Trace mg/dL (Neg-Trace)
[2022-09-01] MEDS: Diphth,Pertus(ACell),Tet Adult 0.5 ML SYRINGE IM (23:05)
[2022-09-01 23:18] LABS: Amphetamine Screen Urine POSITIVE (Not Detect); Barbiturates, Urine Not Detected (Not Detect); Benzodiazepines Screen Urine Not Detected (Not Detect); Cannabinoid Screen Urine Not Detected (Not Detect); Cocaine Screen Urine Not Detected (Not Detect); Fentanyl, urine Not Detected (Not Detect); Opiate Screen Urine Not Detected (Not Detect); Phencyclidine Screen Urine Not Detected (Not Detect)
[2022-09-01 23:20] LABS: MANUAL DIFF FLAG NO
[2022-09-01 23:24] LABS: Basophils Percent Auto 0.2 % (0-2); Eosinophils Absolute Auto 0.1 X10*3/uL (0.0-0.4); Eosinophils Percent Auto 0.9 % (0-4); Hematocrit 46.7 % (42.0-52.0); Hemoglobin 16.2 g/dl (14.0-18.0); Imm Gran Abs Auto 0.03 X10*3/uL (0.00-0.03); Imm Gran Pct Auto 0.3 % (0.0-0.4); Lymphocytes Absolute Auto 2.3 X10*3/uL (1.2-4.9); Lymphocytes Percent Auto 20.6 % (20-40); Mean Corpuscular HGB Conc 34.7 g/dl (31.0-36.0); Mean Corpuscular Hemoglobin 29.7 pg (27.0-33.0); Mean Corpuscular Volume 85.7 fL (80.0-98.0); Mean Platelet Volume 11.2 fL (9.4-12.4); Monocytes Absolute Auto 0.5 X10*3/uL (0.1-1.2); Monocytes Percent Auto 4.5 % (2-11); Neutrophils Absolute Auto 8.1 x10*3/uL (2.0-8.3); Neutrophils Percent Auto 73.5 % (45-73); Platelet Count 121 X10*3/uL (160-400); Red Blood Count 5.45 X10*6/uL (4.60-5.80); Red Cell Distribution Width 12.5 % (11.0-16.0)
[2022-09-01 23:33] LABS: Ethanol < 10 mg/dL
[2022-09-01 23:43] LABS: Alanine Aminotransferase 42 U/L (0-40); Albumin Level 5.2 g/dL (3.5-5.0); Alkaline Phosphatase 108 U/L (39-117); Anion Gap 21 (12-20); Aspartate Amino Transferase 40 U/L (5-37); Bilirubin Direct 0.3 mg/dL (0.0-0.5); Bilirubin Total 0.8 mg/dL (0.0-1.0); Blood Urea Nitrogen 20 mg/dL (9-16); Calcium 10.1 mg/dL (8.4-10.2); Carbon Dioxide 19 mmol/L (22-29); Chloride 104 mmol/L (96-108); Creatinine Clr Calc Pharmacy 83.1; Estimated Glomerular Filt Rate 55; Glucose Random 90 mg/dL (60-115); Lipase 45 U/L (8-78); Potassium 5.6 mmol/L (3.3-5.1); Sodium 138 mmol/L (135-145); Troponin-I High Sensitivity < 3.5 ng/L (<3.5-35.0)
[2022-09-01 23:59] VITALS: BP 114/79; PULSE 54; RESP 12; TEMP 35.7; O2SAT 97
[2022-09-02] VITALS (8 sets, daily range): BP systolic 104–126; BP diastolic 61–86; PULSE 54–80; RESP 12–18; TEMP 36.4–36.7; O2SAT 95–98
--- NOTE | 2022-09-02 00:01 | PC.NURSE ---
Pt is sleeping in bed, less responsive to painful stimuli compared to previous assessment. Pt's skin was cold to the touch; this RN obtained rectal temp to find pt hypothermic at 96.3 F. Pt is placed on Bearhugger at this time. Attempt to obtain IV access will be repeated. Provider made aware that a previous attempt at IV access was unsuccessful and pt might require the provider to place a line.
--- NOTE | 2022-09-02 01:30 | PC.NURSE ---
This RN made second attempt to obtain IV access using US guidance that was unsuccessful. Provider (Ambreen DIXON) then made an attempt to obtain access in the left jugular vein that was unsuccessful. Dr. Soliz attempted to gain access in the right jugular vein that was positional but still able to draw back blood form the IV. IV fluids started to infuse.
[2022-09-02] MEDS: 0.9 % Sodium Chloride 1,000 ML 999 ML IVCONT ×2 (01:47→03:31)
--- NOTE | 2022-09-02 01:59 | PC.NURSE ---
Pt's IV in jugular vein has failed, fluids infiltrating into the tissues around the neck, skin is cool and firm to the touch surrounding the IV site. Provider made aware of IV status. Fluids paused at this time.
--- NOTE | 2022-09-02 02:02 | PC.NURSE ---
Pt's temp is back within normal range. BearHugger removed at this, pt covered with warm blankets. Pt mental status has improved, Pt CAOx3, responding to questions appropriately.
--- NOTE | 2022-09-02 03:09 | PC.NURSE ---
Dr. Bains successfully placed IV line in pt's left basilic vein using US guidance. Fluids are continued to infuse. Pt is resting in bed at this time, becoming agitated and uncooperative with staff.
[2022-09-02 06:34] LABS: Basophils Percent Auto 0.1 % (0-2); Eosinophils Absolute Auto 0.1 X10*3/uL (0.0-0.4); Eosinophils Percent Auto 0.6 % (0-4); Hematocrit 38.1 % (42.0-52.0); Hemoglobin 13.3 g/dl (14.0-18.0); Imm Gran Abs Auto 0.02 X10*3/uL (0.00-0.03); Imm Gran Pct Auto 0.2 % (0.0-0.4); Lymphocytes Absolute Auto 2.8 X10*3/uL (1.2-4.9); Lymphocytes Percent Auto 33.5 % (20-40); Mean Corpuscular HGB Conc 34.9 g/dl (31.0-36.0); Mean Corpuscular Hemoglobin 30.2 pg (27.0-33.0); Mean Corpuscular Volume 86.6 fL (80.0-98.0); Mean Platelet Volume 11.6 fL (9.4-12.4); Monocytes Absolute Auto 0.7 X10*3/uL (0.1-1.2); Monocytes Percent Auto 8.8 % (2-11); Neutrophils Absolute Auto 4.7 x10*3/uL (2.0-8.3); Neutrophils Percent Auto 56.8 % (45-73); PLT CLUMP 1; Red Cell Distribution Width 12.5 % (11.0-16.0); SCAN SMEAR FLAG 1
--- NOTE | 2022-09-02 06:45 | PM.IMHP ---
History of Present Illness Date of Service: 09/02/22 Chief Complaint: AMS 41-year-old male with past medical history of polysubstance abuse including alcohol and cocaine, and history of major depressive disorder presents to the hospital with altered mental status. Patient is currently completely obtunded, wakes up to verbal stimuli, says hello and falls right back asleep. History is obtained mostly from ED PA and EMR. It seems that patient was brought in by EMS for altered mental status. Patient was found unconscious on the ground behind the hospital. No other history is obtainable at this time. On arrival to the ED patient hemodynamically stable with a temp of 96.3 degrees Labs are significant for WBC count of 11, potassium 5.6, bicarb of 19, BUN of 20, creatinine of 1.43 with a baseline of 1.13, AST of 40, ALT of 42, CPK of 468, urine that is positive for amphetamines, no acute infection and urine, alcohol level less than 10 Unable to obtain much history including past medical history due to patient being obtunded Head CT shows no acute intracranial abnormality Review of Systems Review of Systems: Yes Unobtainable due to mental status PMFSH Social History Household Members: None Housing: Homeless Do you presently have visiting nurse or other home services: No Patient Tobacco Use Status: Former Tobacco user e-Cigarette/Vaping Use: Never Used Substance Use Type: Crack/Cocaine Advance Directives: No Advance Directives Information Provided: No service: No Sexual orientation: Did not discuss Meds Allergies Allergy/AdvReac Type Severity Reaction Status Date / Time No Known Allergies Allergy Verified 11/28/21 20:05 Active Medications: Current Medications Acetaminophen (Acetaminophen 325 Mg Tablet) 650 mg PO Q6H PRN PRN Reason: Pain, Mild (Pain Scale 1-3) Ondansetron HCl (Ondansetron Hcl 4 Mg/2 Ml Vial) 4 mg IVPUSH Q8H PRN PRN Reason: Nausea and Vomiting Sodium Chloride (0.9 % Sodium Chloride Flush 3 Ml Syringe) 3 ml IVFLUSH [facility] Home Medications Medication Instructions Recorded Confirmed Last Taken Type methadone 10 mg tablet 120 mg PO DAILY 11/29/21 11/29/21 11/28/21 08:45 History Physical Exam Vital Signs and Narrative: Vital Signs: Last Vital Signs Temp 97.9 F 09/02/22 04:52 Pulse 64 09/02/22 04:52 Resp 16 09/02/22 04:52 BP 104/61 09/02/22 04:52 Pulse Ox 95 09/02/22 04:52 O2 Del Method 09/02/22 04:52 BMI result Body Mass Index 33.0 Const: Other: Patient is obtunded, arousable to verbal stimuli as well as sternal rub General: no acute distress HEENT: Other: Significantly dilated is pupils, minimally responsive to light Eyes: General: appearance normal, both eyes and all related structures Resp: Effort & Inspection: normal respiratory effort Cardio: Rate: regular rate Rhythm: regular rhythm GI: Palpation (GI): Soft to palpation Auscultation: normal bowel sounds Skin: Other: Has multiple abrasions on his hands Extrem: General: Yes normal to inspection and Yes no pedal edema Results Labs CBC and Chem 7: 09/01/22 23:16 09/01/22 23:16 Labs: Laboratory Results - last 24 hr 09/01/22 09/01/22 09/01/22 22:39 22:47 22:47 MCV MCH MCHC RDW Plt Count MPV Immature Gran % (Auto) Neut % (Auto) Lymph % (Auto) [place] % (Auto) Eos % (Auto) Baso % (Auto) Lymph # (Auto) [place] # (Auto) Eos # (Auto) Baso # (Auto) Abs Immat Gran (auto) Absolute Neuts (auto) Absolute Nucleated RBC Nucleated RBC % (auto) Anion Gap Estim Creat Clear Calc Estimated GFR POC Glucose 92 Random Glucose Calcium Total Bilirubin Direct Bilirubin AST ALT Alkaline Phosphatase Total Creatine Kinase Troponin I High Sens Total Protein Albumin Lipase Urine Color Yellow Urine Appearance Clear Urine pH 6.0 Ur Specific [place] 1.025 Urine Protein Trace Urine Glucose (UA) Negative Urine Ketones Trace Urine Blood Negative Urine Nitrite Negative Ur Leukocyte Esterase Negative Urine Opiates Screen Not Detected Urine Fentanyl Screen Not Detected Ur Barbiturates Screen Not Detected Ur Phencyclidine Scrn Not Detected Ur Amphetamines Screen POSITIVE H U Benzodiazepines Scrn Not Detected Urine Cocaine Screen Not Detected U Marijuana (THC) Screen Not Detected Ethyl Alcohol 09/01/22 09/01/22 09/01/22 23:16 23:16 23:16 MCV 85.7 MCH 29.7 MCHC 34.7 RDW 12.5 Plt Count 121 L MPV 11.2 Immature Gran % (Auto) 0.3 Neut % (Auto) 73.5 H Lymph % (Auto) 20.6 [place] % (Auto) 4.5 Eos % (Auto) 0.9 Baso % (Auto) 0.2 Lymph # (Auto) 2.3 [place] # (Auto) 0.5 Eos # (Auto) 0.1 Baso # (Auto) 0.0 Abs Immat Gran (auto) 0.03 Absolute Neuts (auto) 8.1 Absolute Nucleated RBC 0.000 Nucleated RBC % (auto) 0.0 Anion Gap 21 H Estim Creat Clear Calc 83.1 Estimated GFR 55 POC Glucose Random Glucose 90 Calcium 10.1 D Total Bilirubin 0.8 Direct Bilirubin 0.3 AST 40 H D ALT 42 H Alkaline Phosphatase 108 Total Creatine Kinase 468 H Troponin I High Sens < 3.5 Total Protein 10.0 H Albumin 5.2 H D Lipase 45 Urine Color Urine Appearance Urine pH Ur Specific [place] Urine Protein Urine Glucose (UA) Urine Ketones Urine Blood Urine Nitrite Ur Leukocyte Esterase Urine Opiates Screen Urine Fentanyl Screen Ur Barbiturates Screen Ur Phencyclidine Scrn Ur Amphetamines Screen U Benzodiazepines Scrn Urine Cocaine Screen U Marijuana (THC) Screen Ethyl Alcohol 09/01/22 23:16 MCV MCH MCHC RDW Plt Count MPV Immature Gran % (Auto) Neut % (Auto) Lymph % (Auto) [place] % (Auto) Eos % (Auto) Baso % (Auto) Lymph # (Auto) [place] # (Auto) Eos # (Auto) Baso # (Auto) Abs Immat Gran (auto) Absolute Neuts (auto) Absolute Nucleated RBC Nucleated RBC % (auto) Anion Gap Estim Creat Clear Calc Estimated GFR POC Glucose Random Glucose Calcium Total Bilirubin Direct Bilirubin AST ALT Alkaline Phosphatase Total Creatine Kinase Troponin I High Sens Total Protein Albumin Lipase Urine Color Urine Appearance Urine pH Ur Specific [place] Urine Protein Urine Glucose (UA) Urine Ketones Urine Blood Urine Nitrite Ur Leukocyte Esterase Urine Opiates Screen Urine Fentanyl Screen Ur Barbiturates Screen Ur Phencyclidine Scrn Ur Amphetamines Screen U Benzodiazepines Scrn Urine Cocaine Screen U Marijuana (THC) Screen Ethyl Alcohol < 10 Imaging Radiologist's Impressions: Impressions Head CT 09/01/22 22:54 IMPRESSION: No acute intracranial pathology. Chest X-Ray 09/01/22 22:55 IMPRESSION: 1. 1.7 cm nodularity projecting over the right lower lobe. Recommend correlation with a nonemergent chest CT. 2. Otherwise, clear lungs. No pleural effusion or pneumothorax. 3. No acute osseous abnormalities. Assessment and Plan (1) Encephalopathy acute: Status: Acute (2) DANIELA (acute kidney injury): Status: Acute Plan 41-year-old male with documented past medical history of alcohol and cocaine abuse brought in by EMS with altered mental status # encephalopathy - likely secondary to drug abuse - positive for amphetamines - history of alcohol an cocaine abuse - head CT negative - at this time will monitor- if continues to be encephalopathic consider MRI of the brain # DANIELA - likely prerenal - will treat with IV fluids - follow BMP # documented history of alcohol abuse - alcohol less than 10 - at this time patient obtunded, will not start him on phenobarb - follow CIWA score DVT prophylaxis: Lovenox Quality Stroke Does the patient have a stroke diagnosis?: No VTE Prior VTE?: No VTE Risk Level:: Medical - low VTE Device Contraindication: Treatment Not Indicated VTE Drug Contraindication: Treatment Not Indicated
[2022-09-02 06:50] LABS: Anion Gap 16 (12-20); Blood Urea Nitrogen 19 mg/dL (9-16); Calcium 8.4 mg/dL (8.4-10.2); Carbon Dioxide 18 mmol/L (22-29); Chloride 109 mmol/L (96-108); Creatinine Clr Calc Pharmacy 127.8; Estimated Glomerular Filt Rate > 60; Glucose Random 94 mg/dL (60-115); Potassium 4.7 mmol/L (3.3-5.1); Sodium 138 mmol/L (135-145)
[2022-09-02 07:37] LABS: White Blood Count 8.2 X10*3/uL (4.8-10.8)
[2022-09-02 07:38] LABS: MANUAL DIFF FLAG NO; Platelet Count 84 X10*3/uL (160-400)
[2022-09-02] MEDS: 0.9 % Sodium Chloride Flush 3 ML SYRINGE IVFLUSH (07:52)
--- NOTE | 2022-09-02 08:40 | MHC.CM.PN ---
CM ATTEMPTED TO SEE PT WHO IS SLEEPING SOUNDLY AND DOES NOT RESPOND TO NAME CM WILL REVISIT
--- NOTE | 2022-09-02 09:46 | PHA.MEDREC ---
Pharmacy Consult ? Medication Reconciliation Pharmacy has completed the medication reconciliation. Patient poor historian of medications. Was able to answer some questions on medications. Patient claims to be on Adderall 10mg daily, but unable to confirm via PDMP. Patient also states they take methadone 140 mg, will need to follow up with clinic to confirm dose.
[2022-09-02] MEDS: Lactated Ringers 1,000 ML 125 ML IVCONT ×2 (10:07→16:01)
[2022-09-02 10:21] LABS: COVID-19 Test Positive (Negative)
[2022-09-02] MEDS: Thiamine HCL 500 MG in 0.9 % Sodium Chloride 100 ML 210 MG IV (11:55)
--- NOTE | 2022-09-02 12:07 | P.EN_ITS ---
Event Note Date of Service: 09/02/22 Event Note: Day hospitalist update S: Now awake and alert and completely oriented/conversant Unsure why he became unconscious Discharged from [facility] yesterday; denies drinking EtOH or taking any substance. On Adderall for ADHD. O: Temp Pulse Resp BP Pulse Ox O2 Del Method 97.7 F 55 18 126/75 98 09/02/22 11:39 09/02/22 11:39 09/02/22 11:39 09/02/22 11:39 09/02/22 11:39 09/02/22 11:39 Gen: in no acute distress HEENT: sclera anicteric, moist mucus membranes Neck: supple Lungs: clear to auscultation bilaterally Heart: regular rate and rhythm, no murmurs Abd: soft, non-tender, non-distended Ext: no edema Skin: warm/well-perfused Neuro: alert and oriented x3, no focal findings Psych: appropriate affect A/P: hospital day#1 41yo M with polysubstance abuse disorder, ADHD, severe MDD s/p recent admission to [facility] inpatient psychiatry 08/25-09/01/22 found unconscious on ground behind hospital admitted for encephalopathy, DANIELA # acute encephalopathy - resolving, ?occult drug abuse. Utox + for amphetamines but pt is on Adderall # Covid-19 - no respiratory symptoms; monitor for now. no risk factors for severe disease. # DANIELA, prerenal - resolving with IV fluids # hyperK - resolved # elevated CPK - improving with IV fluids # opioid use disorder - methadone 140 mg/d- verified by [facility] records - screen HBV/HCV/HIV # cocaine abuse history - Addiction Medicine consult # EtOH abuse - CIWA, prn lorazepam - PO thiamine # mood disorder - continue propranolol, quetiapine, bupropion, escitalopram, gabapentin # VTE ppx: SCDs In my clinical judgment, the patient requires continued inpatient hospitalization for the following reasons: DANIELA, IV hydration, encephalopathy
[2022-09-02] MEDS: methADONE HCl 20 MG/2 ML ORAL.CONC 140 MG PO (12:38)
[2022-09-02] MEDS: Escitalopram Oxalate 10 MG TABLET PO (12:38)
[2022-09-02] MEDS: Thiamine HCL 100 MG TABLET PO (12:42)
--- NOTE | 2022-09-02 12:45 | PC.NURSE ---
PT A&Ox3, denies pain. PT ambulated to the BR independently. Meds given as documented. IV fluids running. No apparent distress, resting quietly.
[2022-09-02] MEDS: Propranolol HCL 40 MG TABLET PO (13:01)
[2022-09-02] MEDS: Gabapentin 400 MG CAPSULE 800 MG PO ×2 (15:22→20:36)
--- NOTE | 2022-09-02 15:23 | PC.NURSE ---
patient brought from main ed to overflow 4, patient a&ox2 person/place, pt stating hes feeling like hes withdrawing from ETOH states he drinks up to 1/2 gallon of liquor at a time, pt states last night he drank 15 fireballs. ciwa score was 10 will notify provider, ivf running per order, precautions for covid intact, pt medicated per order, call solorzano within reach, will continue to monitor
[2022-09-02] MEDS: PHENobarbitaL sodium 130 MG/ML IM ONCE 292 MG IM (15:59)
--- NOTE | 2022-09-02 16:04 | PC.NURSE ---
pt medicated for ciwa, will continue to monitor
--- NOTE | 2022-09-02 19:17 | HO.ADDICT_ITS ---
History of Present Illness Date of Service: 09/02/2022 Chief Complaint: Encephalopathy Reason for Consult: ?overdose HPI Narrative: Patient is a 41 year old male who presented to [facility] ED after being found unconscious on the ground near the hospital (per ED note). Patient essentially obtunded in ED unable to stay awake for any type of asse ssment. Covid +. UDS negative (aside from amphetamines--prescribed adderall). Patient seen in ED overflow room 4. Awake, alert, engaged in interview. He reports he does not recall events leading to ED admission. He states that the last thing he remembers is that he took a bunch of trazodone that he bought from someone in an attempt to overdose. He reports feeling hopeless due to multiple losses and loss of housing as well. Denies any thoughts of harming himself at this time or plan to harm himself. Past Psychiatric History: -Hx of IPLOC at [facility] in [place] 6 months ago due to SI. Reports hx of SA by cutting wrist. -Past meds: michelle Review of Systems Constitutional: Reports as per HPI Diagnostics Vital Signs (24Hr): Vital Signs - 24 hr 09/01/22 22:11 09/01/22 23:59 09/02/22 01:10 Temperature 97.7 F 96.3 F L Pulse Rate 63 54 60 Respiratory Rate 12 12 12 Blood Pressure 114/89 114/79 119/77 Pulse Oximetry 96 97 97 Oxygen Delivery Method Room Air Room Air Room Air 09/02/22 01:36 09/02/22 02:06 09/02/22 04:52 Temperature 98.1 F 97.6 F 97.9 F Pulse Rate 80 64 Respiratory Rate 12 16 Blood Pressure 109/86 104/61 Pulse Oximetry 96 95 Oxygen Delivery Method Room Air Room Air 09/02/22 11:39 09/02/22 16:04 Temperature 97.7 F 98 F Pulse Rate 55 54 Respiratory Rate 18 18 Blood Pressure 126/75 116/62 Pulse Oximetry 98 97 Oxygen Delivery Method Room Air Room Air BMI result Body Mass Index 33.0 Labs Results: 09/02/22 06:28 09/02/22 06:28 Labs: Laboratory Results - last 48 hr 09/01/22 09/01/22 09/01/22 22:39 22:47 22:47 WBC RBC Hgb Hct MCV MCH MCHC RDW Plt Count MPV Immature Gran % (Auto) Neut % (Auto) Lymph % (Auto) [place] % (Auto) Eos % (Auto) Baso % (Auto) Lymph # (Auto) [place] # (Auto) Eos # (Auto) Baso # (Auto) Abs Immat Gran (auto) Absolute Neuts (auto) Absolute Nucleated RBC Nucleated RBC % (auto) Sodium Potassium Chloride Carbon Dioxide Anion Gap BUN Creatinine Estim Creat Clear Calc Estimated GFR POC Glucose 92 Random Glucose Calcium Total Bilirubin Direct Bilirubin AST ALT Alkaline Phosphatase Total Creatine Kinase Troponin I High Sens C-Reactive Protein Total Protein Albumin Lipase Urine Color Yellow Urine Appearance Clear Urine pH 6.0 Ur Specific [place] 1.025 Urine Protein Trace Urine Glucose (UA) Negative Urine Ketones Trace Urine Blood Negative Urine Nitrite Negative Ur Leukocyte Esterase Negative Urine Opiates Screen Not Detected Urine Fentanyl Screen Not Detected Ur Barbiturates Screen Not Detected Ur Phencyclidine Scrn Not Detected Ur Amphetamines Screen POSITIVE H U Benzodiazepines Scrn Not Detected Urine Cocaine Screen Not Detected U Marijuana (THC) Screen Not Detected Ethyl Alcohol COVID-19 ([facility]ONG) COVID-19 Clin Com 09/01/22 09/01/22 09/01/22 23:16 23:16 23:16 WBC 11.0 H RBC 5.45 Hgb 16.2 Hct 46.7 MCV 85.7 MCH 29.7 MCHC 34.7 RDW 12.5 Plt Count 121 L MPV 11.2 Immature Gran % (Auto) 0.3 Neut % (Auto) 73.5 H Lymph % (Auto) 20.6 [place] % (Auto) 4.5 Eos % (Auto) 0.9 Baso % (Auto) 0.2 Lymph # (Auto) 2.3 [place] # (Auto) 0.5 Eos # (Auto) 0.1 Baso # (Auto) 0.0 Abs Immat Gran (auto) 0.03 Absolute Neuts (auto) 8.1 Absolute Nucleated RBC 0.000 Nucleated RBC % (auto) 0.0 Sodium 138 Potassium 5.6 H D Chloride 104 Carbon Dioxide 19 L Anion Gap 21 H BUN 20 H D Creatinine 1.43 H Estim Creat Clear Calc 83.1 Estimated GFR 55 POC Glucose Random Glucose 90 Calcium 10.1 D Total Bilirubin 0.8 Direct Bilirubin 0.3 AST 40 H D ALT 42 H Alkaline Phosphatase 108 Total Creatine Kinase 468 H Troponin I High Sens < 3.5 C-Reactive Protein Total Protein 10.0 H Albumin 5.2 H D Lipase 45 Urine Color Urine Appearance Urine pH Ur Specific [place] Urine Protein Urine Glucose (UA) Urine Ketones Urine Blood Urine Nitrite Ur Leukocyte Esterase Urine Opiates Screen Urine Fentanyl Screen Ur Barbiturates Screen Ur Phencyclidine Scrn Ur Amphetamines Screen U Benzodiazepines Scrn Urine Cocaine Screen U Marijuana (THC) Screen Ethyl Alcohol COVID-19 (HONG) COVID-19 [facility] Com 09/01/22 09/02/22 09/02/22 23:16 06:28 06:28 WBC 8.2 RBC 4.40 L Hgb 13.3 L Hct 38.1 L MCV 86.6 MCH 30.2 MCHC 34.9 RDW 12.5 Plt Count 84 L D MPV 11.6 Immature Gran % (Auto) 0.2 Neut % (Auto) 56.8 Lymph % (Auto) 33.5 [place] % (Auto) 8.8 Eos % (Auto) 0.6 Baso % (Auto) 0.1 Lymph # (Auto) 2.8 [place] # (Auto) 0.7 Eos # (Auto) 0.1 Baso # (Auto) 0.0 Abs Immat Gran (auto) 0.02 Absolute Neuts (auto) 4.7 Absolute Nucleated RBC 0.000 Nucleated RBC % (auto) 0.0 Sodium 138 Potassium 4.7 Chloride 109 H Carbon Dioxide 18 L Anion Gap 16 BUN 19 H Creatinine 0.93 Estim Creat Clear Calc 127.8 Estimated GFR > 60 POC Glucose Random Glucose 94 Calcium 8.4 D Total Bilirubin Direct Bilirubin AST ALT Alkaline Phosphatase Total Creatine Kinase Troponin I High Sens C-Reactive Protein Total Protein Albumin Lipase Urine Color Urine Appearance Urine pH Ur Specific [place] Urine Protein Urine Glucose (UA) Urine Ketones Urine Blood Urine Nitrite Ur Leukocyte Esterase Urine Opiates Screen Urine Fentanyl Screen Ur Barbiturates Screen Ur Phencyclidine Scrn Ur Amphetamines Screen U Benzodiazepines Scrn Urine Cocaine Screen U Marijuana (THC) Screen Ethyl Alcohol < 10 COVID-19 ([facility]ONG) COVID-19 [employer] Com 09/02/22 09/02/22 09:24 10:09 WBC RBC Hgb Hct MCV MCH MCHC RDW Plt Count MPV Immature Gran % (Auto) Neut % (Auto) Lymph % (Auto) [place] % (Auto) Eos % (Auto) Baso % (Auto) Lymph # (Auto) [place] # (Auto) Eos # (Auto) Baso # (Auto) Abs Immat Gran (auto) Absolute Neuts (auto) Absolute Nucleated RBC Nucleated RBC % (auto) Sodium Potassium Chloride Carbon Dioxide Anion Gap BUN Creatinine Estim Creat Clear Calc Estimated GFR POC Glucose Random Glucose Calcium Total Bilirubin Direct Bilirubin AST ALT Alkaline Phosphatase Total Creatine Kinase 387 H Troponin I High Sens C-Reactive Protein 0.60 H Total Protein Albumin Lipase Urine Color Urine Appearance Urine pH Ur Specific [place] Urine Protein Urine Glucose (UA) Urine Ketones Urine Blood Urine Nitrite Ur Leukocyte Esterase Urine Opiates Screen Urine Fentanyl Screen Ur Barbiturates Screen Ur Phencyclidine Scrn Ur Amphetamines Screen U Benzodiazepines Scrn Urine Cocaine Screen U Marijuana (THC) Screen Ethyl Alcohol COVID-19 ([facility]ONG) Positive A COVID-19 Clin Com See Note Imaging Radiology Impressions: ITS Impressions Head CT 09/01/22 22:54 IMPRESSION: No acute intracranial pathology. Chest X-Ray 09/01/22 22:55 IMPRESSION: 1. 1.7 cm nodularity projecting over the right lower lobe. Recommend correlation with a nonemergent chest CT. 2. Otherwise, clear lungs. No pleural effusion or pneumothorax. 3. No acute osseous abnormalities. Mental Status Exam Mental Status Exam Patient Appearance: Appropriate Patient Orientation: Person, Place and Situation Level of Consciousness: Awake, Appropriate and Alert Patient Behavior: Appropriate and Cooperative Mood Description: Blunted Affect Description: Blunted Thought Process: Intact Judgement: Fair Medications Medications Current Medications Acetaminophen (Acetaminophen 325 Mg Tablet) 650 mg PO Q6H PRN PRN Reason: Pain, Mild (Pain Scale 1-3) Bupropion HCl (Bupropion Hcl Xl 300 Mg Tab.Er.24h) 300 mg PO DAILY [facility] Escitalopram Oxalate (Escitalopram Oxalate 10 Mg Tablet) 10 mg PO DAILY [facility] Last Admin: 09/02/22 12:38 Dose: 10 mg Gabapentin (Gabapentin 400 Mg Capsule) 800 mg PO TID [facility] Last Admin: 09/02/22 15:22 Dose: 800 mg Lactated Ringer's (Lr) 1,000 mls @ 125 mls/hr IVCONT .Q8H [facility] Last Admin: 09/02/22 16:01 Dose: 125 mls/hr Methadone HCl (Methadone Hcl 20 Mg/2 Ml Oral.Conc) 140 mg PO DAILY [facility] Stop: 09/03/22 09:01 Last Admin: 09/02/22 12:38 Dose: 140 mg Methadone HCl (Methadone Hcl 20 Mg/2 Ml Oral.Conc) 140 mg PO DAILY [facility] Ondansetron HCl (Ondansetron Hcl 4 Mg/2 Ml Vial) 4 mg IVPUSH Q8H PRN PRN Reason: Nausea and Vomiting Pharmacy Consult (Consult Rx Perform Med Rec) 1 each MISCELLANE ONCE PRN PRN Reason: Consult order Pharmacy Consult (Consult Rx Etoh Phenob Im/Po) 1 each MISCELLANE ONCE PRN; Protocol PRN Reason: Consult order Phenobarbital (Phenobarbital 15 Mg Tablet) 45 mg PO BID [facility] Stop: 09/04/22 21:01 Phenobarbital (Phenobarbital 30 Mg Tablet) 30 mg PO BID [facility] Stop: 09/06/22 21:01 Phenobarbital (Phenobarbital 15 Mg Tablet) 15 mg PO DAILY [facility] Stop: 09/08/22 09:01 Phenobarbital Sodium (Phenobarbital Sodium 130 Mg/Ml Vial Im Q3hx2) 219 mg IM Q3H [facility] Stop: 09/02/22 22:01 Promethazine HCl (Promethazine Hcl 25 Mg Tablet) 25 mg PO TID PRN PRN Reason: Nausea And Vomiting Propranolol HCl (Propranolol Hcl 40 Mg Tablet) 40 mg PO BID [facility]; Protocol Last Admin: 09/02/22 13:01 Dose: 40 mg Quetiapine Fumarate (Quetiapine Fumarate 100 Mg Tablet) 100 mg PO BEDTIME [facility] Sodium Chloride (0.9 % Sodium Chloride Flush 3 Ml Syringe) 3 ml IVFLUSH QSHIFT [facility] Last Admin: 09/02/22 15:14 Dose: Not Given Thiamine HCl (Thiamine Hcl 100 Mg Tablet) 100 mg PO DAILY [facility] Last Admin: 09/02/22 12:42 Dose: 100 mg Allergies Allergies Allergy/AdvReac Type Severity Reaction Status Date / Time No Known Allergies Allergy Verified 11/28/21 20:05 Assessment & Plan Assessment & Plan (1) MDD (major depressive disorder), recurrent episode, moderate: Status: Acute Code(s): F33.1 - Major depressive disorder, recurrent, moderate Assessment and Plan: * discussed case with attending provider * patient should be seen by crisis or CARE team once medically cleared * no follow up indicated for ACS at this time I spent ___40___ minutes with the patient and/or on the patient floor today, greater than?50% of which was spent counseling/coordinating care. [facility] Social History Social History Household Members: None Housing: Homeless Do you presently have visiting nurse or other home services: No Patient Tobacco Use Status: Former Tobacco user e-Cigarette/Vaping Use: Never Used Substance Use Type: Crack/Cocaine Advance Directives: No Advance Directives Information Provided: No service: No Sexual orientation: Did not discuss
[2022-09-02] MEDS: PHENobarbitaL sodium 130 MG/ML VIAL IM Q3Hx2 219 MG IM ×2 (19:53→23:36)
[2022-09-02] MEDS: QUEtiapine Fumarate 100 MG TABLET PO (20:36)
[2022-09-02] MEDS: Propranolol HCL 20 MG TABLET 40 MG PO (20:37)
--- NOTE | 2022-09-02 20:48 | PC.NURSE ---
Pt refusing engine monitor. Will only allow pulse ox and BP cuff to be applied and remain on
[2022-09-03 00:01] VITALS: BP 115/58; PULSE 56; RESP 16; TEMP 36.3; O2SAT 97
[2022-09-03] MEDS: Lactated Ringers 1,000 ML 125 ML IVCONT ×4 (00:08→22:43)
--- NOTE | 2022-09-03 01:02 | PC.NURSE ---
Pt asleep resting comfortably
[2022-09-03 04:00] VITALS: BP 101/64; PULSE 57; RESP 16; TEMP 36.2; O2SAT 97
[2022-09-03 06:00] VITALS: BMI 36.0
[2022-09-03 07:44] VITALS: BP 110/61; PULSE 55; RESP 16; O2SAT 96
[2022-09-03] MEDS: PHENobarbitaL 15 MG TABLET 45 MG PO ×2 (08:57→20:49)
[2022-09-03] MEDS: Propranolol HCL 20 MG TABLET 40 MG PO ×2 (08:58→20:50)
[2022-09-03] MEDS: methADONE HCl 20 MG/2 ML ORAL.CONC 140 MG PO (08:58)
[2022-09-03] MEDS: Gabapentin 400 MG CAPSULE 800 MG PO ×3 (08:58→20:48)
[2022-09-03] MEDS: buPROPion HCl XL 300 MG TAB.ER.24H PO (08:58)
[2022-09-03] MEDS: Thiamine HCL 100 MG TABLET PO (08:58)
[2022-09-03] MEDS: Escitalopram Oxalate 10 MG TABLET PO (08:58)
--- NOTE | 2022-09-03 11:42 | P.PNIM_ITS ---
Subjective Subjective Date of Service: 09/03/22 Interval History: mental status resolved took trazodone- unknown number of pills- to try to kill himself no respiratory symptoms no fever Review of Systems Review of Systems: Yes all other systems are reviewed and are negative Physical Exam 2 Vital Signs: Vital Signs: Last Vital Signs Temp 97.2 F 09/03/22 04:00 Pulse 55 09/03/22 07:44 Resp 16 09/03/22 07:44 BP 110/61 09/03/22 07:44 Pulse Ox 96 09/03/22 07:44 O2 Del Method 09/03/22 07:44 BMI result Body Mass Index 36.0 Gen: in no acute distress HEENT: sclera anicteric, moist mucus membranes Neck: supple Lungs: clear to auscultation bilaterally Heart: regular rate and rhythm, no murmurs Abd: soft, non-tender, non-distended, obese Ext: no edema Skin: warm/well-perfused Neuro: alert and oriented x3, no focal findings Psych: restricted affect Objective Data Active Medications Acetaminophen (Acetaminophen 325 Mg Tablet) 650 mg PO Q6H PRN PRN Reason: Pain, Mild (Pain Scale 1-3) Bupropion HCl (Bupropion Hcl Xl 300 Mg Tab.Er.24h) 300 mg PO DAILY [facility] Last Admin: 09/03/22 08:58 Dose: 300 mg Documented By: CARLOS Escitalopram Oxalate (Escitalopram Oxalate 10 Mg Tablet) 10 mg PO DAILY [facility] Last Admin: 09/03/22 08:58 Dose: 10 mg Documented By: CARLOS Gabapentin (Gabapentin 400 Mg Capsule) 800 mg PO TID [facility] Last Admin: 09/03/22 08:58 Dose: 800 mg Documented By: CARLOS Lactated Ringer's (Lr) 1,000 mls @ 125 mls/hr IVCONT .Q8H [facility] Last Admin: 09/03/22 06:25 Dose: 125 mls/hr Documented By: JJ Methadone HCl (Methadone Hcl 20 Mg/2 Ml Oral.Conc) 140 mg PO DAILY [facility] Ondansetron HCl (Ondansetron Hcl 4 Mg/2 Ml Vial) 4 mg IVPUSH Q8H PRN PRN Reason: Nausea and Vomiting Pharmacy Consult (Consult Rx Perform Med Rec) 1 each MISCELLANE ONCE PRN PRN Reason: Consult order Pharmacy Consult (Consult Rx Etoh Phenob Im/Po) 1 each MISCELLANE ONCE PRN; Protocol PRN Reason: Consult order Phenobarbital (Phenobarbital 15 Mg Tablet) 45 mg PO BID [facility] Stop: 09/04/22 21:01 Last Admin: 09/03/22 08:57 Dose: 45 mg Documented By: CARLOS Phenobarbital (Phenobarbital 30 Mg Tablet) 30 mg PO BID [facility] Stop: 09/06/22 21:01 Phenobarbital (Phenobarbital 15 Mg Tablet) 15 mg PO DAILY [facility] Stop: 09/08/22 09:01 Promethazine HCl (Promethazine Hcl 25 Mg Tablet) 25 mg PO TID PRN PRN Reason: Nausea And Vomiting Propranolol HCl (Propranolol Hcl 20 Mg Tablet) 40 mg PO BID [facility]; Protocol Last Admin: 09/03/22 08:58 Dose: 40 mg Documented By: CARLOS Quetiapine Fumarate (Quetiapine Fumarate 100 Mg Tablet) 100 mg PO BEDTIME [facility] Last Admin: 09/02/22 20:36 Dose: 100 mg Documented By: JJ Sodium Chloride (0.9 % Sodium Chloride Flush 3 Ml Syringe) 3 ml IVFLUSH QSHIFT [facility] Last Admin: 09/03/22 11:17 Dose: Not Given Documented By: BERNIEHC Non-Admin Reason: IV Running Thiamine HCl (Thiamine Hcl 100 Mg Tablet) 100 mg PO DAILY [facility] Last Admin: 09/03/22 08:58 Dose: 100 mg Documented By: CARLOS Labs CBC & Chem 7: 09/02/22 06:28 09/03/22 11:04 Assessment and Plan (1) Altered mental status: Status: Acute (2) DANIELA (acute kidney injury): Status: Acute Plan hospital day#2 41yo M with polysubstance abuse disorder, ADHD, severe MDD s/p recent admission to [facility] inpatient psychiatry 08/25-09/01/22 found unconscious on ground behind hospital admitted for encephalopathy, DANIELA tried to intentionally overdose on trazodone # intentional overdose - no toxidrome. sitter. Crisis evaluation # toxic encephalopathy - resolved # Covid-19 - no respiratory symptoms; monitor for now.? no risk factors for severe disease. # DANIELA, prerenal - resolved with IV fluids # hyperK - resolved # elevated CPK - well below 1000. continue IV fluids but low risk for rhabdomyolysis # opioid use disorder - methadone 140 mg/d- verified by [facility] records - screen HBV/HCV/HIV # cocaine abuse history - Addiction Medicine consulted # EtOH abuse - phenobarbital taper - PO thiamine # mood disorder - continue propranolol, quetiapine, bupropion, escitalopram, gabapentin # VTE ppx: SCDs In my clinical judgment, the patient requires continued inpatient hospitalization for the following reasons: crisis evaluation Quality Stroke Does the patient have a stroke diagnosis?: No VTE Prior VTE?: No VTE Risk Level:: Medical - low VTE Device Contraindication: Treatment Not Indicated VTE Drug Contraindication: Treatment Not Indicated
[2022-09-03 11:51] LABS: Alanine Aminotransferase 28 U/L (0-40); Alkaline Phosphatase 75 U/L (39-117); Anion Gap 18 (12-20); Aspartate Amino Transferase 43 U/L (5-37); Bilirubin Total 0.5 mg/dL (0.0-1.0); Blood Urea Nitrogen 10 mg/dL (9-16); Calcium 8.4 mg/dL (8.4-10.2); Carbon Dioxide 17 mmol/L (22-29); Chloride 109 mmol/L (96-108); Creatinine Clr Calc Pharmacy 142.7; Estimated Glomerular Filt Rate > 60; Glucose Random 111 mg/dL (60-115); Potassium 5.1 mmol/L (3.3-5.1); Sodium 139 mmol/L (135-145); Total Protein 7.7 g/dL (6.5-8.0)
[2022-09-03 11:54] LABS: Hematocrit 35.1 % (42.0-52.0); Hemoglobin 11.9 g/dl (14.0-18.0); Mean Corpuscular HGB Conc 33.9 g/dl (31.0-36.0); Mean Corpuscular Hemoglobin 29.8 pg (27.0-33.0); Mean Corpuscular Volume 87.8 fL (80.0-98.0); Mean Platelet Volume 11.7 fL (9.4-12.4); Red Cell Distribution Width 12.5 % (11.0-16.0); White Blood Count 3.3 X10*3/uL (4.8-10.8)
--- NOTE | 2022-09-03 11:59 | MHC.CARE ---
SMART sheet completed for [facility]
[2022-09-03 12:16] LABS: Platelet Count 62 X10*3/uL (160-400)
--- NOTE | 2022-09-03 12:48 | MHC.CM.PN ---
Patient is unavailable by phone and Covid (+); assessment is by chart review only. Patient appears to be homeless. There appears to be no mention of immunization for Covid and no indication of who the PCP is. d/c plan will rely heavily on Care Team Consult, ? IPLOC R/T attempted overdose on Trazodone bought on the street. Patient is on Methadone. CM has initiated and will follow for dc planning.
[2022-09-03 14:46] VITALS: BP 125/72; PULSE 72; RESP 16; O2SAT 96
--- NOTE | 2022-09-03 19:43 | MHC.CARE ---
SUEN evaluated pt, disposition is inpatient psychiatric. Pt is an active bedsearch pending facility placement, bedsearch is being managed by [facility].
[2022-09-03] MEDS: QUEtiapine Fumarate 100 MG TABLET PO (20:50)
[2022-09-03] MEDS: 0.9 % Sodium Chloride Flush 3 ML SYRINGE IVFLUSH (23:24)
--- NOTE | 2022-09-03 23:26 | PC.NURSE ---
care of patient assumed at 2300. he is found sleeping in stretcher with 1:[address] COVID precautions in place. patient is asleep, with unlabored respirations. he awakens for assessment and is irritable, yelling what are you doing?! he states he wants to be left alone and doesn't want to answer any questions. he is wearing a hospital gown and pants, no other belongings bedside. no tremors, headache, nausea, tongue fasculations, or hallucinations on assessment-
[2022-09-03 23:30] VITALS: BP 124/67; PULSE 52; RESP 15; TEMP 36.9; O2SAT 96
[2022-09-04] MEDS: Lactated Ringers 1,000 ML 125 ML IVCONT ×2 (04:05→12:24)
[2022-09-04 04:26] VITALS: BP 121/75; PULSE 54; RESP 15; O2SAT 96
[2022-09-04 05:05] LABS: HBc Num1 0.16 S/CO (0.00-0.79); HIV AB/AG Nonreactive (Nonreactive); HIV Num 1 0.11 S/CO (0.00-0.99); Hepatitis B Core Antibody Nonreactive (Nonreactive); Hepatitis B Surface Antigen Negative (Negative); ~Hepatitis B Surface Antibody REACTIVE (Nonreactive)
[2022-09-04 05:11] LABS: ~HepC Num1 13.38 S/CO (0.00-0.79); ~Hepatitis C Antibody Reactive (Nonreactive)
[2022-09-04 05:35] LABS: Syphilis Screen Nonreactive (Nonreactive)
[2022-09-04] MEDS: Gabapentin 400 MG CAPSULE 800 MG PO ×2 (08:11→16:19)
[2022-09-04] MEDS: Propranolol HCL 20 MG TABLET 40 MG PO (08:12)
[2022-09-04] MEDS: PHENobarbitaL 15 MG TABLET 45 MG PO (08:12)
[2022-09-04] MEDS: buPROPion HCl XL 300 MG TAB.ER.24H PO (08:12)
[2022-09-04] MEDS: Thiamine HCL 100 MG TABLET PO (08:13)
[2022-09-04] MEDS: Escitalopram Oxalate 10 MG TABLET PO (08:13)
[2022-09-04] MEDS: 0.9 % Sodium Chloride Flush 3 ML SYRINGE IVFLUSH ×2 (08:14→16:19)
--- NOTE | 2022-09-04 08:19 | PC.NURSE ---
PT IS A/O X 4 NO SOB/FAITH NOTED SPEAKS IN FULL SENTENCES. AMB (I) GAIT STEADY IN HIS ROOM. HEART SOUNDS REGULAR. LUNGS - DIMINISHED. ABD- OBESE, SOFT AND N/T, BS + X 4 QUADS. NO EDEMA NOTED. LR INFUSING AT 125ML/HR. PT CARE OF PLAN OF CARE.
[2022-09-04 09:37] LABS: Alanine Aminotransferase 24 U/L (0-40); Alkaline Phosphatase 79 U/L (39-117); Anion Gap 14 (12-20); Aspartate Amino Transferase 29 U/L (5-37); Bilirubin Total 0.5 mg/dL (0.0-1.0); Blood Urea Nitrogen 6 mg/dL (9-16); Calcium 8.7 mg/dL (8.4-10.2); Carbon Dioxide 25 mmol/L (22-29); Chloride 106 mmol/L (96-108); Creatinine Clr Calc Pharmacy 153.2; Estimated Glomerular Filt Rate > 60; Glucose Random 93 mg/dL (60-115); Potassium 4.2 mmol/L (3.3-5.1); Sodium 141 mmol/L (135-145); Total Protein 7.3 g/dL (6.5-8.0)
--- NOTE | 2022-09-04 11:22 | HE.PHANOTE ---
RE: methadone Called [facility] where pt said he last got dose from, verified last dose given was 140mg on 09/01
--- NOTE | 2022-09-04 12:06 | PM.DS ---
DS: Providers Provider Date of Service: 09/04/22 Date of admission: 09/02/22 04:34 Date of discharge: 09/04/22 Primary care physician: Unknown Physician Consults: 09/02/22 12:16 Addiction Medicine Routine Consulting Provider: Addiction Covering Reason for consultation: keven monsalve found obtonede 09/02/22 16:35 Consult for Sitter Routine Reason for consultation: tried to overdose on trazodone 09/03/22 11:41 Consult to Care Team Stat Comment: Reason for consultation: SI- tried to overdose on trazodone. MEDICALLY CLEARED but Covid+_ DS: Diagnosis Discharge Diagnosis (1) Altered mental status: Status: Acute (2) DANIELA (acute kidney injury): Status: Acute (3) Elevated CPK: Status: Acute (4) Encephalopathy acute: Status: Acute (5) Alcohol use disorder, moderate, dependence: Status: Acute (6) Cocaine use disorder, moderate, dependence: Status: Acute (7) MDD (major depressive disorder), recurrent episode, moderate: Status: Acute (8) Intentional overdose of trazodone: Status: Acute (9) Suicidal ideation: Status: Acute (10) Thrombocytopenia: Status: Acute DS: Summary Hospital Course Hospital Course: from admission H+P by hospitalist MD Sukhdeep Phelan, 09/02/22: 41-year-old male with past medical history of polysubstance abuse including alcohol and cocaine, and history of major depressive disorder presents to the hospital with altered mental status. Patient is currently completely obtunded, wakes up to verbal stimuli, says hello and falls right back asleep.? History is obtained mostly from ED PA and EMR.? It seems that patient was brought in by EMS for altered mental status.? Patient was found unconscious on the ground behind the hospital.? No other history is obtainable at this time.? On arrival to the ED patient hemodynamically stable with a temp of 96.3 degrees Labs are significant for WBC count of 11, potassium 5.6, bicarb of 19, BUN of 20, creatinine of 1.43 with a baseline of 1.13, AST of 40, ALT of 42, CPK of 468, urine that is positive for amphetamines, no acute infection and urine, alcohol level less than 10 Unable to obtain much history including past medical history due to patient being obtunded Head CT shows no acute intracranial abnormality This 41yo M with polysubstance abuse disorder, ADHD, severe MDD s/p recent admission to [facility] inpatient psychiatry 08/25-09/01/22 found unconscious on ground behind hospital was admitted for encephalopathy and DANIELA. Once he woke up, he admitted to intentionally overdosing on trazodone. No specific toxidrome other than the encephalopathy, which resolved overnight. No QT prolongation. Crisis evaluation was done and he was admitted to inpatient psychiatry. As for his other issues, he was given phenobarbital taper once awake due to concern for impending alcohol withdrawal. He was also found to have asymptomatic Covid-19 infection. Five-day isolation ends 09/07/22, after which he should wear a surgical mask for another 5 days. DANIELA and hyperkalemia were transient and resolved with IV fluid hydration. CPK was elevated but well below 1000. He was continued on his usual dose of methadone, 140 mg/d. Platelet count did drop from 121 to 62 and a CBC should be repeated on 09/06/22 and afterwards if not improved; thrombocytopenia is suspected to be due to bone marrow suppession from alcohol plus Covid-19 infection. He was not exposed to heparin during this admissino. He was [facility] [place] [facility] [place]. Time Spent with Patient Time attestation: Total time spent providing and/or coordinating discharge services: Discharge coordination time: Greater than 30 minutes Quality: Safe Use of Opioids Does Pt have an Active Cancer Diagnosis on the Problem List?: No Quality: Stroke Does the patient have a stroke diagnosis?: No Physical Exam Vital Signs: Vital Signs: Last Vital Signs Temp 98.4 F 09/03/22 23:30 Pulse 54 09/04/22 04:26 Resp 15 09/04/22 04:26 BP 121/75 09/04/22 04:26 Pulse Ox 96 09/04/22 04:26 O2 Del Method 09/04/22 04:26 BMI result Body Mass Index 36.0 Gen: in no acute distress HEENT: sclera anicteric, moist mucus membranes Neck: supple Lungs: clear to auscultation bilaterally Heart: regular rate and rhythm, no murmurs Abd: soft, non-tender, non-distended Ext: no edema Skin: warm/well-perfused Neuro: alert and oriented x3, no focal findings Psych: restricted affect DS: Data Data Completed and Pending Completed studies during hospitalization [Text1]: Laboratory Results WBC 3.3 X10*3/uL (4.8-10.8) L 09/03/22 11:43 RBC 4.00 X10*6/uL (4.60-5.80) L 09/03/22 11:43 Hgb 11.9 g/dl (14.0-18.0) L 09/03/22 11:43 Hct 35.1 % (42.0-52.0) L 09/03/22 11:43 MCV 87.8 fL (80.0-98.0) 09/03/22 11:43 MCH 29.8 pg (27.0-33.0) 09/03/22 11:43 MCHC 33.9 g/dl (31.0-36.0) 09/03/22 11:43 RDW 12.5 % (11.0-16.0) 09/03/22 11:43 Plt Count 62 X10*3/uL (160-400) L D 09/03/22 11:43 MPV 11.7 fL (9.4-12.4) 09/03/22 11:43 Immature Gran % (Auto) 0.2 % (0.0-0.4) 09/02/22 06:28 Neut % (Auto) 56.8 % (45-73) 09/02/22 06:28 Lymph % (Auto) 33.5 % (20-40) 09/02/22 06:28 [place] % (Auto) 8.8 % (2-11) 09/02/22 06:28 Eos % (Auto) 0.6 % (0-4) 09/02/22 06:28 Baso % (Auto) 0.1 % (0-2) 09/02/22 06:28 Lymph # (Auto) 2.8 X10*3/uL (1.2-4.9) 09/02/22 06:28 [place] # (Auto) 0.7 X10*3/uL (0.1-1.2) 09/02/22 06:28 Eos # (Auto) 0.1 X10*3/uL (0.0-0.4) 09/02/22 06:28 Baso # (Auto) 0.0 X10*3/uL (0.0-0.2) 09/02/22 06:28 Abs Immat Gran (auto) 0.02 X10*3/uL (0.00-0.03) 09/02/22 06:28 Absolute Neuts (auto) 4.7 x10*3/uL (2.0-8.3) 09/02/22 06:28 Absolute Nucleated RBC 0.000 X10*3/uL (0.0-0.012) 09/03/22 11:43 Nucleated RBC % (auto) 0.0 /100WBC (0.0-0.2) 09/03/22 11:43 Sodium 141 mmol/L (135-145) 09/04/22 09:00 Potassium 4.2 mmol/L (3.3-5.1) 09/04/22 09:00 Chloride 106 mmol/L (96-108) 09/04/22 09:00 Carbon Dioxide 25 mmol/L (22-29) 09/04/22 09:00 Anion Gap 14 (12-20) 09/04/22 09:00 BUN 6 mg/dL (9-16) L 09/04/22 09:00 Creatinine 0.81 mg/dL (0.5-1.4) 09/04/22 09:00 Estim Creat Clear Calc 153.2 09/04/22 09:00 Estimated GFR > 60 09/04/22 09:00 POC Glucose 92 mg/dL (60-115) 09/01/22 22:39 Random Glucose 93 mg/dL (60-115) 09/04/22 09:00 Calcium 8.7 mg/dL (8.4-10.2) 09/04/22 09:00 Total Bilirubin 0.5 mg/dL (0.0-1.0) 09/04/22 09:00 Direct Bilirubin 0.3 mg/dL (0.0-0.5) 09/01/22 23:16 AST 29 U/L (5-37) 09/04/22 09:00 ALT 24 U/L (0-40) 09/04/22 09:00 Alkaline Phosphatase 79 U/L (39-117) 09/04/22 09:00 Total Creatine Kinase 345 U/L (38-174) H D 09/04/22 09:00 Troponin I High Sens < 3.5 ng/L (<3.5-35.0) 09/01/22 23:16 C-Reactive Protein 0.60 mg/dL (< or = 0.50) H 09/02/22 09:24 Total Protein 7.3 g/dL (6.5-8.0) 09/04/22 09:00 Albumin 4.0 g/dL (3.5-5.0) 09/04/22 09:00 Lipase 45 U/L (8-78) 09/01/22 23:16 Urine Color Yellow 09/01/22 22:47 Urine Appearance Clear 09/01/22 22:47 Urine pH 6.0 (5.0-9.0) 09/01/22 22:47 Ur Specific Elsie 1.025 (1.005-1.025) 09/01/22 22:47 Urine Protein Trace mg/dL (Neg-Trace) 09/01/22 22:47 Urine Glucose (UA) Negative mg/dL (Negative) 09/01/22 22:47 Urine Ketones Trace mg/dL (Negative) 09/01/22 22:47 Urine Blood Negative (Negative) 09/01/22 22:47 Urine Nitrite Negative (Negative) 09/01/22 22:47 Ur Leukocyte Esterase Negative (Negative) 09/01/22 22:47 Urine Opiates Screen Not Detected (Not Detect) 09/01/22 22:47 Urine Fentanyl Screen Not Detected (Not Detect) 09/01/22 22:47 Ur Barbiturates Screen Not Detected (Not Detect) 09/01/22 22:47 Ur Phencyclidine Scrn Not Detected (Not Detect) 09/01/22 22:47 Ur Amphetamines Screen POSITIVE (Not Detect) H 09/01/22 22:47 U Benzodiazepines Scrn Not Detected (Not Detect) 09/01/22 22:47 Urine Cocaine Screen Not Detected (Not Detect) 09/01/22 22:47 U Marijuana (THC) Screen Not Detected (Not Detect) 09/01/22 22:47 Ethyl Alcohol < 10 mg/dL 09/01/22 23:16 T.pallidum Ab (EIA) Nonreactive (Nonreactive) 09/02/22 09:24 COVID-19 (HONG) Positive (Negative) A 09/02/22 10:09 COVID-19 Clin Com See Note 09/02/22 10:09 Hep Bs Antigen Negative (Negative) 09/02/22 09:24 Hep Bs Antibody REACTIVE (Nonreactive) 09/02/22 09:24 Hep B Core Total Ab Nonreactive (Nonreactive) 09/02/22 09:24 Hepatitis C Ab (EIA) Reactive (Nonreactive) H 09/02/22 09:24 HIV 1&2 Ab/P24 Ag 4thGn Nonreactive (Nonreactive) 09/02/22 09:[address] 09/01/22 22:54 IMPRESSION: No acute intracranial pathology. Chest X-Ray 09/01/22 22:55 IMPRESSION: 1. 1.7 cm nodularity projecting over the right lower lobe. Recommend correlation with a nonemergent chest CT. 2. Otherwise, clear lungs. No pleural effusion or pneumothorax. 3. No acute osseous abnormalities. Discharge Plan Discharge Anticipated Discharge Date/Time: 09/03/22 11:51 Patient Disposition: Xfer Psychiatric Hosp Discharge Diagnosis: encephalopathy due to intentional overdose of trazodone acute kidney injury, resolved polysubstance abuse incidental Covid-19 infection alcohol use disorder, high risk for withdrawal thrombocytopenia Referrals: Physician,Unknown J [Primary Care Provider] - 1 Week Discharge Medications: New phenobarbital 15 mg Tablet 15 mg PO DAILY Qty: 2 0RF phenobarbital 15 mg Tablet 45 mg PO BID Qty: 4 0RF phenobarbital 30 mg Tablet 30 mg PO BID Qty: 4 0RF Continued methadone 10 mg Tablet 140 mg PO DAILY bupropion HCl 150 mg tablet sustained-release 12 hr 150 mg PO BID Qty: 30 1RF gabapentin 400 mg capsule 800 mg PO TID Qty: 42 1RF thiamine HCl (vitamin B1) [Vitamin B-1] 100 mg tablet 100 mg PO DAILY Qty: 30 0RF quetiapine 100 mg tablet 1 tab PO BEDTIME promethazine 25 mg tablet 1 tab PO TID PRN (Reason: Nausea And Vomiting) propranolol 40 mg tablet 1 tab PO BID escitalopram oxalate 10 mg tablet 1 tab PO DAILY Diet: Advance to usual diet Activity on Discharge: As tolerated Stand Alone Forms: Patient Portal Discharge page Care Plan Goals: mental health sobriety Health Concerns: encephalopathy due to intentional overdose of trazodone acute kidney injury, resolved polysubstance abuse incidental Covid-19 infection alcohol use disorder with high risk for withdrawal thrombocytopenia Plan of Treatment: inpatient psychiatric care maintain isolation for 5 days from diagnosis of Covid-19 infection on 09/02/22, then wear mask for 5 days afterwards avoid alcohol; conitnue phenobarbital taper recheck CBC on 09/06/22 Please follow up with your primary care doctor within 1 week. Return to the hospital if you experience recurrent or worsening symptoms.
[2022-09-04] MEDS: methADONE HCl 20 MG/2 ML ORAL.CONC 140 MG PO (12:58)
--- NOTE | 2022-09-04 13:30 | PC.NURSE ---
rn to rn report given to cinthia gavin aware of plan of care for transfer to .
[2022-09-04 17:02] VITALS: BP 121/73; PULSE 48; RESP 18; TEMP 36.3; O2SAT 96
[2022-09-07 14:16] LABS: HCV Log PCR <1.18 NOT DETECTED Log IU/mL (NOT DETECTED); HepC Viral Load <15 NOT DETECTED IU/mL (NOT DETECTED)
[2022-09-07 14:36] LABS: Vitamin B1 11 nmol/L (8-30)
== END 2022-09-04 20:44 | DRG 817 ==
LOC: HO.ED 09-02 04:40 → HO.EDOVER 09-02 04:40
PROVIDERS: Nurse Practitioner Family; Admitting Provider Internal Medicine; Emergency Provider Emergency Medicine; Visit Provider Family Medicine
DX: T43.212A Poisoning by selective serotonin and norepinephrine reuptake inhibitors, intentional self-harm, initial encounter (principal); U07.1 COVID-19; G92.8 Other toxic encephalopathy; F90.9 Attention-deficit hyperactivity disorder, unspecified type; N17.9 Acute kidney failure, unspecified; F33.1 Major depressive disorder, recurrent, moderate; D69.6 Thrombocytopenia, unspecified; F10.20 Alcohol dependence, uncomplicated; F14.20 Cocaine dependence, uncomplicated; F11.20 Opioid dependence, uncomplicated; E87.5 Hyperkalemia; Z91.51 Personal history of suicidal behavior; Z59.02 Unsheltered homelessness; Z87.891 Personal history of nicotine dependence; Z88.8 Allergy status to other drugs, medicaments and biological substances; Z79.899 Other long term (current) drug therapy
CPT/HCPCS: 36415; 70450; 71045; 71250; 80048; 80053; 80076; 80307; 81003; 82077; 82550; 82947; 83690; 84425; 84484; 85025; 85027; 86140; 86704; 86706; 86780; 86803; 87340; 87389; 87522; 87635; 90471; 90715; 93005; 96361; 96365; 96366; 96372; 96375; 99285; J2560; J3411

== ENCOUNTER 2022-09-04 20:29 | Inpatient (IN) | payer OTHER, SELFPAY ==
--- OUTSIDE RECORDS SUMMARY | 2022-09-04 20:48 | XMS_ITS ---
[...] ge Past Encounters 10/12/2021 Suspected Coronavirus Infection Nag Haney, SURGICAL SERVICES DIRECTOR: [address], [facility], [place] [id number], Ph. Social History None recorded. Vaccine List None recorded. Plan of Care Reminders Provider Appointments None recorded. ? ? Lab None recorded. ? ? Referral None recorded. ? ? Procedures None recorded. ? ? Surgeries None recorded. ? ? Imaging None recorded. ? ? Vitals None recorded.
[2022-09-04 20:50] VITALS: BP 142/80; PULSE 60; RESP 16; TEMP 36; O2SAT 99; BMI 39.3
--- NOTE | 2022-09-04 21:43 | PC.ADMIT ---
Pt is a 41 years old , male admitted on for inpatient level of care after pt was found unconscious behind the hospital. Pt is reported to have intentionally overdosed on trazodone. Pt is alert and oriented x4, VSS, covid negative, tox screen positive for amphetamine. Insight and judgment appear poor and impulse control appears good at the time of assessment. Pt does not appear to respond to internal stimuli. He denies Auditory hallucination and visual hallucination. As well, Pt denies Homicidal ideation, plan or intent. Pt endorses Suicidal ideation but without any plan. Speech is normal with regular tone, rhythm and makenzie. Pt verbalized feeling hopeless and depressed. Admission orders obtained.
[2022-09-05] MEDS: traZODone HCL 50 MG TABLET PO (03:54)
[2022-09-05] MEDS: hydrOXYzine HCL 25 MG TABLET PO (03:54)
[2022-09-05 06:00] VITALS: BP 144/87; PULSE 56; RESP 20; TEMP 35.9; O2SAT 97
[2022-09-05] MEDS: methADONE HCl 20 MG/2 ML ORAL.CONC 140 MG PO (09:19)
[2022-09-05] MEDS: Escitalopram Oxalate 10 MG TABLET PO (10:07)
[2022-09-05] MEDS: Thiamine HCL 100 MG TABLET PO (10:08)
[2022-09-05] MEDS: Gabapentin 400 MG CAPSULE 800 MG PO ×3 (10:08→20:00)
[2022-09-05] MEDS: PHENobarbitaL 15 MG TABLET 45 MG PO (10:09)
[2022-09-05] MEDS: Propranolol HCL 40 MG TABLET PO (13:52)
[2022-09-05] MEDS: buPROPion HCl XL 300 MG TAB.ER.24H PO (13:54)
[2022-09-05] MEDS: Promethazine HCL 25 MG TABLET PO ×2 (14:10→20:01)
[2022-09-05 15:35] LABS: Estimated Average Glucose 91 mg/dL; Hemoglobin A1c % 4.8 %
[2022-09-05 16:07] LABS: Cholesterol 142 mg/dL; HDL Cholesterol 40 mg/dL; LDL Cholesterol Calculated 65 mg/dl; Magnesium 1.9 mg/dL (1.6-2.6); Triglycerides 185 mg/dL
--- NOTE | 2022-09-05 16:12 | P.HPPS_ITS ---
HPI Date of Service: 09/05/22 Chief Complaint: OD, depression Sources of Information: patient interviewed, chart reviewed and crisis/core team assessment reviewed HPI Subjective Notes: Lira Warning and Conditional Voluntary Healthcare Proxy: No Guardianship: No Medical Problems Affecting Mental Status: No Narrative: They told me they found me behind the hospital 41 yo male, history of recurrent major depression, IWONA, PTSD, Alcohol and Cocaine Use Disorder, transferred from ER holding after being found on hospital grounds s/p Trazodone overdose. Pt reports that he was just discharged from [facility] and was supposed to go to [facility] with Carmen Yousif, however there were no beds available. Pt states he told the team at [place] that he would overdose if discharged to the street. Reports he is homeless. Prior to his [place] admit he was staying at [facility]. Norbert is hoping for placement in a penitentiary residential addiction program, to have medications stabilized and to end his cycle of chronic homelessness. Past Psychiatric History: -IP: [place] 08/24/22; [facility] 11/29/21 Hx of IPLOC at [facility] in 2020 due to SI. Recent [facility] admit Reports hx of SA by cutting wrist. TSS: Oct 2021 LIZBETH Choudhary -Past meds: Vyvanse, Methadone, Wellbutrin, Clonidine, Gabapentin, Seroquel, Buspar, Lexapro, Propranolol, Atarax, Promethazine -Pharmacy- [facility], [facility] Medical Evaluation Reviewed: Yes [facility] Medical History (Updated 09/06/22 @ 08:43 by Cathie Blake, CONTACT CENTER ASSOCIATE) ADHD Opioid use disorder, severe, on maintenance therapy Family History: Pt denies Social History: -Currently homeless Born and raised in [place], by his mother. Two sisters Recent move from [place], and has been homeless since coming to this area Hx of incarceration for 12 years Denies current legal issues/probation/parole Substance History: cocaine, opiates, alcohol, meth Hx of TSS Hx of [facility] OTP of [place] Trauma History: -Per chart, hx of PTSD from incarceration. Diagnostics Vital Signs (24Hr): Vital Signs - 24 hr 09/04/22 20:50 09/05/22 06:00 Temperature 96.8 F 96.7 F L Pulse Rate 60 56 Respiratory Rate 16 20 Blood Pressure 142/80 H 144/87 H Pulse Oximetry 99 97 Oxygen Delivery Method Room Air Room Air BMI result Body Mass Index 39.3 Labs Labs: Laboratory Results - last 48 hr 09/05/22 09/05/22 14:39 14:39 Estimat Average Glucose 91 Hemoglobin A1c % 4.8 Magnesium 1.9 Triglycerides 185 Cholesterol 142 LDL Cholesterol, Calc 65 HDL Cholesterol 40 Meds/Allergies Meds Home Medications Medication Instructions Recorded Confirmed Type methadone 10 mg tablet 140 mg PO DAILY 11/29/21 09/05/22 History escitalopram oxalate 10 mg tablet 1 tab PO DAILY 09/02/22 09/02/22 History promethazine 25 mg tablet 1 tab PO TID PRN Nausea And 09/02/22 09/02/22 History Vomiting propranolol 40 mg tablet 1 tab PO BID 09/02/22 09/02/22 History quetiapine 100 mg tablet 1 tab PO BEDTIME 09/02/22 09/02/22 History Allergies Allergies Allergy/AdvReac Type Severity Reaction Status Date / Time No Known Allergies Allergy Verified 11/28/21 20:05 Mental Status Exam Mental Status Exam Patient Appearance: Appropriate Patient Orientation: Person, Place, Time and Situation Level of Consciousness: Alert Patient Behavior: Talkative, Cooperative and Good Eye Contact Mood Description: Depressed Affect Description: Flat Patient Cognition Impaired: No Ability to Follow Directions: Good Speech Pattern: Spontaneous Speech Memory Description: Episodic Impaired Hallucinations: None Delusions: Not Present Thought Process: Intact and Goal Oriented Thought Content: positive for Intact and positive for Goal Oriented Depressive Symptoms: Loss of Int. in Activity, Feelings of Worthlessness, Hopelessness, Unhappiness, Increased Fatigue, Thoughts of /Suicide, Low Self Esteem, Loss of Energy and Difficulty Concentrating Judgement: Fair Assessment & Plan Assessment & Plan (1) MDD (major depressive disorder), recurrent episode, moderate: Status: Acute Code(s): F33.1 - Major depressive disorder, recurrent, moderate (2) Alcohol use disorder, moderate, dependence: Status: Acute Code(s): F10.20 - Alcohol dependence, uncomplicated (3) Cocaine use disorder, moderate, dependence: Status: Acute Code(s): F14.20 - Cocaine dependence, uncomplicated (4) Opioid use disorder, severe, on maintenance therapy: Status: Acute Code(s): F11.20 - Opioid dependence, uncomplicated (5) ADHD: Status: Acute Code(s): F90.9 - Attention-deficit hyperactivity disorder, unspecified type Plan 41 yo male, hx of recurrent major depression, IWONA, ADHD, PTSD, alcohol and cocaine use disorder, opioid use disorder on maintenance therapy s/p Trazodone overdose. Pt struggling with chronic homelessness, unable to find a program for longer team addiction treatment and stable therapist and medication provider. Pt with anemia-?chronic illness and substance abuse. Pt agreeable to re-establish regime, titrate and search for resources for ongoing care. Plan: Complete Phenobarbital taper Wellbutrin XL 300 mg a.m. Adderall XR 10 mg a.m. FeSO4 324 mg daily MVI i tab daily Patient educated on: diagnosis, medication risk/benefits, substance abuse, therapeutic strategies and medical condition Informed Consent: understands and further education needed Reason for continued inpatient stay Substantial Risk for: harm to self, inability to function, rapid decompensation and med/psych decompensation
[2022-09-05 16:29] LABS: Free T4 (Free Thyroxine) 1.02 ng/dL (0.71-1.85); Thyroid Stimulating Hormone 2.32 uIU/mL (0.32-4.0)
[2022-09-05 17:53] LABS: Folate 15.3 ng/mL (> or = 4.0); Vitamin B12 471 pg/mL (200-900)
[2022-09-05] MEDS: PHENobarbitaL 30 MG TABLET PO (20:00)
[2022-09-05] MEDS: QUEtiapine Fumarate 100 MG TABLET PO (20:00)
[2022-09-05 20:14] VITALS: BP 145/70; PULSE 70; TEMP 36.7
[2022-09-06 06:00] VITALS: BP 152/97; PULSE 60; RESP 18; TEMP 36.9; O2SAT 99; BMI 38.7
[2022-09-06] MEDS: Thiamine HCL 100 MG TABLET PO (08:42)
[2022-09-06] MEDS: Ferrous Sulfate 324 MG TABLET.DR PO (08:42)
[2022-09-06] MEDS: Multivitamin TABLET 1 TAB PO (08:42)
[2022-09-06] MEDS: Propranolol HCL 40 MG TABLET PO ×2 (08:42→20:20)
[2022-09-06] MEDS: Gabapentin 400 MG CAPSULE 800 MG PO ×3 (08:42→20:20)
[2022-09-06] MEDS: PHENobarbitaL 30 MG TABLET PO ×2 (08:42→20:19)
[2022-09-06] MEDS: Dextroamphetamine/Amphetamine XR 10 MG CAP.ER.24H PO (08:42)
[2022-09-06] MEDS: buPROPion HCl XL 300 MG TAB.ER.24H PO (08:43)
[2022-09-06] MEDS: Escitalopram Oxalate 10 MG TABLET PO (08:43)
[2022-09-06] MEDS: methADONE HCl 20 MG/2 ML ORAL.CONC 140 MG PO (08:45)
[2022-09-06 09:27] LABS: Hematocrit 37.6 % (42.0-52.0); Hemoglobin 13.4 g/dl (14.0-18.0); Mean Corpuscular HGB Conc 35.6 g/dl (31.0-36.0); Mean Corpuscular Hemoglobin 30.6 pg (27.0-33.0); Mean Corpuscular Volume 85.8 fL (80.0-98.0); PLT CLUMP 1; Red Blood Count 4.38 X10*6/uL (4.60-5.80); Red Cell Distribution Width 12.4 % (11.0-16.0)
[2022-09-06] MEDS: Promethazine HCL 25 MG TABLET PO ×2 (10:02→20:20)
[2022-09-06] MEDS: hydrOXYzine HCL 25 MG TABLET PO ×2 (10:03→14:51)
[2022-09-06 10:26] LABS: White Blood Count 3.6 X10*3/uL (4.8-10.8)
[2022-09-06 10:27] LABS: Platelet Count 68 X10*3/uL (160-400)
--- NOTE | 2022-09-06 17:57 | P.PNPSI_ITS ---
Subjective Subjective Date of Service: 09/06/22 Reason For Visit: OD, depression Subjective Notes: Conditional Voluntary Healthcare Proxy: No Guardianship: No Medical Problems Affecting Mental Status: No Interim History: Completing Phenobarbital tapering. Reports no current concerns with medication regime-no changes to be made today. Hopes for admission to longer term addictions program. Medication Compliance: Yes Side effects from medications: No Attending Groups: Yes Review of Systems Acute medical concerns: No Medical Review of Systems: unchanged Mental Status Exam Mental Status Exam Patient Appearance: Appropriate Patient Orientation: Person, Place, Time and Situation Level of Consciousness: Alert Patient Behavior: Talkative, Cooperative and Good Eye Contact Mood Description: Depressed Affect Description: Flat Patient Cognition Impaired: No Ability to Follow Directions: Good Speech Pattern: Spontaneous Speech Memory Description: Episodic Impaired Hallucinations: None Delusions: Not Present Thought Process: Intact and Goal Oriented Thought Content: positive for Intact and positive for Goal Oriented Depressive Symptoms: Loss of Int. in Activity, Feelings of Worthlessness, Hopelessness, Unhappiness, Increased Fatigue, Thoughts of /Suicide, Low Self Esteem, Loss of Energy and Difficulty Concentrating Judgement: Fair Diagnostics Vital Signs (24Hr): Vital Signs - 24 hr 09/05/22 20:14 09/06/22 06:00 Temperature 98.0 F 98.5 F Pulse Rate 70 60 Respiratory Rate 18 Blood Pressure 145/70 H 152/97 H Pulse Oximetry 99 Oxygen Delivery Method Room Air BMI result Body Mass Index 38.7 Labs Results: 09/06/22 08:35 Labs: Laboratory Results - last 48 hr 09/05/22 09/05/22 09/05/22 14:39 14:39 14:39 WBC RBC Hgb Hct MCV MCH MCHC RDW Plt Count MPV Absolute Nucleated RBC Nucleated RBC % (auto) Estimat Average Glucose 91 Hemoglobin A1c % 4.8 Magnesium 1.9 Triglycerides 185 Cholesterol 142 LDL Cholesterol, Calc 65 HDL Cholesterol 40 Vitamin B12 471 Folate 15.3 TSH 2.32 Free T4 1.02 09/06/22 08:35 WBC 3.6 L RBC 4.38 L Hgb 13.4 L Hct 37.6 L MCV 85.8 MCH 30.6 MCHC 35.6 RDW 12.4 Plt Count 68 L MPV Not Reportable Absolute Nucleated RBC 0.000 Nucleated RBC % (auto) 0.0 Estimat Average Glucose Hemoglobin A1c % Magnesium Triglycerides Cholesterol LDL Cholesterol, Calc HDL Cholesterol Vitamin B12 Folate TSH Free T4 Medications Medications Current Medications Acetaminophen (Acetaminophen 325 Mg Tablet) 650 mg PO Q6H PRN PRN Reason: Headache/Pain Mild Scale (1-3) Al Hydroxide/Mg Hydroxide (Magnesium Hydrox/Alum Hydrox 30 Ml Oral.Susp) 30 ml PO Q6H PRN PRN Reason: Heartburn/Nausea Amphetamine/Dextroamphetamine (Dextroamphetamine/Amphetamine Xr 10 Mg Cap.Er.24h) 10 mg PO DAILY [facility] Last Admin: 09/06/22 08:42 Dose: 10 mg Bupropion HCl (Bupropion Hcl Xl 300 Mg Tab.Er.24h) 300 mg PO DAILY [facility] Last Admin: 09/06/22 08:43 Dose: 300 mg Escitalopram Oxalate (Escitalopram Oxalate 10 Mg Tablet) 10 mg PO DAILY [facility] Last Admin: 09/06/22 08:43 Dose: 10 mg Ferrous Sulfate (Ferrous Sulfate 324 Mg Tablet.Dr) 324 mg PO DAILY [facility] Last Admin: 09/06/22 08:42 Dose: 324 mg Gabapentin (Gabapentin 400 Mg Capsule) 800 mg PO TID [facility] Last Admin: 09/06/22 14:51 Dose: 800 mg Hydroxyzine HCl (Hydroxyzine Hcl 25 Mg Tablet) 25 mg PO Q6H PRN PRN Reason: Anxiety Last Admin: 09/06/22 14:51 Dose: 25 mg Magnesium Hydroxide (Milk Of Magnesia 30 Ml Oral.Susp) 30 ml PO DAILY PRN PRN Reason: Constipation Methadone HCl (Methadone Hcl 20 Mg/2 Ml Oral.Conc) 140 mg PO DAILY [facility] Last Admin: 09/06/22 08:45 Dose: 140 mg Multivitamins/Vitamin C (Multivitamin Tablet) 1 tab PO DAILY [facility] Last Admin: 09/06/22 08:42 Dose: 1 tab Ondansetron HCl (Ondansetron Hcl 4 Mg/2 Ml Vial) 4 mg IVPUSH Q8H PRN PRN Reason: Nausea and Vomiting Phenobarbital (Phenobarbital 30 Mg Tablet) 30 mg PO BID [facility]; Protocol Stop: 09/07/22 09:01 Last Admin: 09/06/22 08:42 Dose: 30 mg Phenobarbital (Phenobarbital 15 Mg Tablet) 15 mg PO DAILY [facility]; Protocol Stop: 09/09/22 09:01 Promethazine HCl (Promethazine Hcl 25 Mg Tablet) 25 mg PO TID PRN PRN Reason: Nausea And Vomiting Last Admin: 09/06/22 10:02 Dose: 25 mg Propranolol HCl (Propranolol Hcl 40 Mg Tablet) 40 mg PO BID [facility]; Protocol Last Admin: 09/06/22 08:42 Dose: 40 mg Quetiapine Fumarate (Quetiapine Fumarate 100 Mg Tablet) 100 mg PO BEDTIME [facility] Last Admin: 09/05/22 20:00 Dose: 100 mg Sodium Chloride (0.9 % Sodium Chloride Flush 3 Ml Syringe) 3 ml IVFLUSH QSHIFT [facility] Last Admin: 09/06/22 08:54 Dose: Not Given Thiamine HCl (Thiamine Hcl 100 Mg Tablet) 100 mg PO DAILY [facility] Last Admin: 09/06/22 08:42 Dose: 100 mg Allergies Allergies Allergy/AdvReac Type Severity Reaction Status Date / Time No Known Allergies Allergy Verified 11/28/21 20:05 Assessment & Plan Assessment & Plan (1) MDD (major depressive disorder), recurrent episode, moderate: Status: Acute Code(s): F33.1 - Major depressive disorder, recurrent, moderate (2) Alcohol use disorder, moderate, dependence: Status: Acute Code(s): F10.20 - Alcohol dependence, uncomplicated (3) Cocaine use disorder, moderate, dependence: Status: Acute Code(s): F14.20 - Cocaine dependence, uncomplicated (4) Opioid use disorder, severe, on maintenance therapy: Status: Acute Code(s): F11.20 - Opioid dependence, uncomplicated (5) ADHD: Status: Acute Code(s): F90.9 - Attention-deficit hyperactivity disorder, unspecified type Plan 41 yo male, hx of recurrent major depression, IWONA, ADHD, PTSD, alcohol and cocaine use disorder, opioid use disorder on maintenance therapy s/p Trazodone overdose. Pt struggling with chronic homelessness, unable to find a program for longer team addiction treatment and stable therapist and medication provider. Pt with anemia-?chronic illness and substance abuse. Pt agreeable to re-establish regime, titrate and search for resources for ongoing care. Plan: Complete Phenobarbital taper Wellbutrin XL 300 mg a.m. Adderall XR 10 mg a.m. FeSO4 324 mg daily MVI i tab daily 09/06/22: Continue current plan. I spent minutes with the patient and/or on the patient floor today, greater than?50% of which was spent counseling/coordinating care. Patient educated on: medication risk/benefits, substance abuse and therapeutic strategies Informed Consent: understands Reason for contiued inpatient stay Substantial Risk for: rapid decompensation
[2022-09-06 18:00] VITALS: BP 110/74; PULSE 61; RESP 18; TEMP 36.1; O2SAT 97
[2022-09-06] MEDS: Acetaminophen 325 MG TABLET 650 MG PO (20:19)
[2022-09-06] MEDS: QUEtiapine Fumarate 100 MG TABLET PO (20:20)
[2022-09-07 06:00] VITALS: BMI 38.4
[2022-09-07 08:30] VITALS: BP 139/89; PULSE 63; TEMP 36.1; O2SAT 98
[2022-09-07] MEDS: methADONE HCl 20 MG/2 ML ORAL.CONC 140 MG PO (08:36)
[2022-09-07] MEDS: PHENobarbitaL 30 MG TABLET PO (08:37)
[2022-09-07] MEDS: Thiamine HCL 100 MG TABLET PO (08:37)
[2022-09-07] MEDS: Ferrous Sulfate 324 MG TABLET.DR PO (08:37)
[2022-09-07] MEDS: Multivitamin TABLET 1 TAB PO (08:37)
[2022-09-07] MEDS: Escitalopram Oxalate 10 MG TABLET PO (08:37)
[2022-09-07] MEDS: Dextroamphetamine/Amphetamine XR 10 MG CAP.ER.24H PO (08:37)
[2022-09-07] MEDS: buPROPion HCl XL 300 MG TAB.ER.24H PO (08:37)
[2022-09-07] MEDS: Gabapentin 400 MG CAPSULE 800 MG PO ×3 (08:37→19:01)
[2022-09-07] MEDS: Propranolol HCL 40 MG TABLET PO ×2 (08:38→19:01)
[2022-09-07] MEDS: Promethazine HCL 25 MG TABLET PO (13:37)
[2022-09-07] MEDS: hydrOXYzine HCL 25 MG TABLET PO (13:37)
--- NOTE | 2022-09-07 16:26 | P.PNPSI_ITS ---
Subjective Subjective Date of Service: 09/07/22 Reason For Visit: OD, depression Subjective Notes: Conditional Voluntary Healthcare Proxy: No Guardianship: No Medical Problems Affecting Mental Status: No Interim History: Pt reports poor sleep due to anxiety. Concerned about programs he has applied to-[place], [employer], [employer] and if he will get in. Reports that if he continues with homelessness he will end his life. Medication Compliance: Yes Side effects from medications: No Attending Groups: Intermittent Review of Systems Acute medical concerns: No Medical Review of Systems: unchanged Mental Status Exam Mental Status Exam Patient Appearance: Appropriate Patient Orientation: Person, Place, Time and Situation Level of Consciousness: Alert Patient Behavior: Talkative, Cooperative and Good Eye Contact Mood Description: Depressed Affect Description: Flat Patient Cognition Impaired: No Ability to Follow Directions: Good Speech Pattern: Spontaneous Speech Memory Description: Episodic Impaired Hallucinations: None Delusions: Not Present Thought Process: Intact and Goal Oriented Thought Content: positive for Intact and positive for Goal Oriented Depressive Symptoms: Loss of Int. in Activity, Feelings of Worthlessness, Hopelessness, Unhappiness, Increased Fatigue, Thoughts of /Suicide, Low Self Esteem, Loss of Energy and Difficulty Concentrating Judgement: Fair Diagnostics Vital Signs (24Hr): Vital Signs - 24 hr 09/06/22 18:00 09/07/22 08:30 Temperature 96.9 F 96.9 F Pulse Rate 61 63 Respiratory Rate 18 Blood Pressure 110/74 139/89 Pulse Oximetry 97 98 Oxygen Delivery Method Room Air Room Air BMI result Body Mass Index 38.4 Labs Results: 09/06/22 08:35 Labs: Laboratory Results - last 48 hr 09/05/22 09/05/22 09/06/22 14:39 14:39 08:35 WBC 3.6 L RBC 4.38 L Hgb 13.4 L Hct 37.6 L MCV 85.8 MCH 30.6 MCHC 35.6 RDW 12.4 Plt Count 68 L MPV Not Reportable Absolute Nucleated RBC 0.000 Nucleated RBC % (auto) 0.0 Vitamin B12 471 Folate 15.3 TSH 2.32 Free T4 1.02 Medications Medications Current Medications Acetaminophen (Acetaminophen 325 Mg Tablet) 650 mg PO Q6H PRN PRN Reason: Headache/Pain Mild Scale (1-3) Last Admin: 09/06/22 20:19 Dose: 650 mg Al Hydroxide/Mg Hydroxide (Magnesium Hydrox/Alum Hydrox 30 Ml Oral.Susp) 30 ml PO Q6H PRN PRN Reason: Heartburn/Nausea Amphetamine/Dextroamphetamine (Dextroamphetamine/Amphetamine Xr 10 Mg Cap.Er.24h) 10 mg PO DAILY [facility] Last Admin: 09/07/22 08:37 Dose: 10 mg Bupropion HCl (Bupropion Hcl Xl 300 Mg Tab.Er.24h) 300 mg PO DAILY [facility] Last Admin: 09/07/22 08:37 Dose: 300 mg Clonidine HCl (Clonidine Hcl 0.1 Mg Tablet) 0.1 mg PO BID [facility]; Protocol Escitalopram Oxalate (Escitalopram Oxalate 10 Mg Tablet) 10 mg PO DAILY [facility] Last Admin: 09/07/22 08:37 Dose: 10 mg Ferrous Sulfate (Ferrous Sulfate 324 Mg Tablet.Dr) 324 mg PO DAILY [facility] Last Admin: 09/07/22 08:37 Dose: 324 mg Gabapentin (Gabapentin 400 Mg Capsule) 800 mg PO TID [facility] Last Admin: 09/07/22 15:26 Dose: 800 mg Hydroxyzine HCl (Hydroxyzine Hcl 25 Mg Tablet) 25 mg PO Q6H PRN PRN Reason: Anxiety Last Admin: 09/07/22 13:37 Dose: 25 mg Magnesium Hydroxide (Milk Of Magnesia 30 Ml Oral.Susp) 30 ml PO DAILY PRN PRN Reason: Constipation Methadone HCl (Methadone Hcl 20 Mg/2 Ml Oral.Conc) 140 mg PO DAILY [facility] Last Admin: 09/07/22 08:36 Dose: 140 mg Multivitamins/Vitamin C (Multivitamin Tablet) 1 tab PO DAILY [facility] Last Admin: 09/07/22 08:37 Dose: 1 tab Ondansetron HCl (Ondansetron Hcl 4 Mg/2 Ml Vial) 4 mg IVPUSH Q8H PRN PRN Reason: Nausea and Vomiting Phenobarbital (Phenobarbital 15 Mg Tablet) 15 mg PO DAILY [facility]; Protocol Stop: 09/09/22 09:01 Promethazine HCl (Promethazine Hcl 25 Mg Tablet) 25 mg PO TID PRN PRN Reason: Nausea And Vomiting Last Admin: 09/07/22 13:37 Dose: 25 mg Propranolol HCl (Propranolol Hcl 40 Mg Tablet) 40 mg PO BID [facility]; Protocol Last Admin: 09/07/22 08:38 Dose: 40 mg Quetiapine Fumarate (Quetiapine Fumarate 100 Mg Tablet) 100 mg PO BEDTIME [facility] Last Admin: 09/06/22 20:20 Dose: 100 mg Thiamine HCl (Thiamine Hcl 100 Mg Tablet) 100 mg PO DAILY [facility] Last Admin: 09/07/22 08:37 Dose: 100 mg Allergies Allergies Allergy/AdvReac Type Severity Reaction Status Date / Time No Known Allergies Allergy Verified 11/28/21 20:05 Assessment & Plan Assessment & Plan (1) MDD (major depressive disorder), recurrent episode, moderate: Status: Acute Code(s): F33.1 - Major depressive disorder, recurrent, moderate (2) Alcohol use disorder, moderate, dependence: Status: Acute Code(s): F10.20 - Alcohol dependence, uncomplicated (3) Cocaine use disorder, moderate, dependence: Status: Acute Code(s): F14.20 - Cocaine dependence, uncomplicated (4) Opioid use disorder, severe, on maintenance therapy: Status: Acute Code(s): F11.20 - Opioid dependence, uncomplicated (5) ADHD: Status: Acute Code(s): F90.9 - Attention-deficit hyperactivity disorder, unspecified type Plan 41 yo male, hx of recurrent major depression, IWONA, ADHD, PTSD, alcohol and cocaine use disorder, opioid use disorder on maintenance therapy s/p Trazodone overdose. Pt struggling with chronic homelessness, unable to find a program for longer team addiction treatment and stable therapist and medication provider. Pt with anemia-?chronic illness and substance abuse. Pt agreeable to re-establish regime, titrate and search for resources for ongoing care. Plan: Complete Phenobarbital taper Wellbutrin XL 300 mg a.m. Adderall XR 10 mg a.m. FeSO4 324 mg daily MVI i tab daily 09/06/22: Continue current plan. 09/07/22: Clonidine 0.1 mg bid to address anxiety, assist with sleep quality. I spent minutes with the patient and/or on the patient floor today, greater than?50% of which was spent counseling/coordinating care. Patient educated on: medication risk/benefits Informed Consent: understands Reason for contiued inpatient stay Substantial Risk for: harm to self, inability to function and rapid decompensation
[2022-09-07] MEDS: cloNIDine HCL 0.1 MG TABLET PO (19:01)
[2022-09-07] MEDS: QUEtiapine Fumarate 100 MG TABLET PO (19:01)
[2022-09-07 19:05] VITALS: BP 119/71; PULSE 65
[2022-09-08 08:00] VITALS: BP 151/82; PULSE 58; TEMP 36.3
[2022-09-08] MEDS: buPROPion HCl XL 300 MG TAB.ER.24H PO (08:33)
[2022-09-08] MEDS: Escitalopram Oxalate 10 MG TABLET PO (08:33)
[2022-09-08] MEDS: Dextroamphetamine/Amphetamine XR 10 MG CAP.ER.24H PO (08:33)
[2022-09-08] MEDS: Promethazine HCL 25 MG TABLET PO ×3 (08:33→20:51)
[2022-09-08] MEDS: Propranolol HCL 40 MG TABLET PO ×2 (08:33→20:51)
[2022-09-08] MEDS: Ferrous Sulfate 324 MG TABLET.DR PO (08:33)
[2022-09-08] MEDS: Thiamine HCL 100 MG TABLET PO (08:33)
[2022-09-08] MEDS: Gabapentin 400 MG CAPSULE 800 MG PO ×3 (08:34→20:51)
[2022-09-08] MEDS: Multivitamin TABLET 1 TAB PO (08:34)
[2022-09-08] MEDS: PHENobarbitaL 15 MG TABLET PO (08:34)
[2022-09-08] MEDS: cloNIDine HCL 0.1 MG TABLET PO ×2 (08:34→20:50)
[2022-09-08] MEDS: methADONE HCl 20 MG/2 ML ORAL.CONC 140 MG PO (08:34)
[2022-09-08] MEDS: hydrOXYzine HCL 25 MG TABLET PO (12:44)
--- NOTE | 2022-09-08 16:04 | HO.PSYCHPN ---
Subjective Subjective Date of Service: 09/08/22 Reason For Visit: OD, depression Subjective Notes: Conditional Voluntary Healthcare Proxy: No Guardianship: No Medical Problems Affecting Mental Status: No Interim History: Tells team if we discharge him he will overdose. Rates SI~8. Reports Seroquel was helpful for sleep. No complaints while currently on the unit. ICM will meet with pt next week from insurance company Medication Compliance: Yes Side effects from medications: No Attending Groups: Intermittent Review of Systems Acute medical concerns: No Medical Review of Systems: unchanged Mental Status Exam Mental Status Exam Patient Appearance: Appropriate Patient Orientation: Person, Place, Time and Situation Level of Consciousness: Alert Patient Behavior: Talkative, Cooperative and Good Eye Contact Mood Description: Depressed Affect Description: Flat Patient Cognition Impaired: No Ability to Follow Directions: Good Speech Pattern: Spontaneous Speech Memory Description: Episodic Impaired Hallucinations: None Delusions: Not Present Thought Process: Intact and Goal Oriented Thought Content: positive for Intact and positive for Goal Oriented Depressive Symptoms: Loss of Int. in Activity, Feelings of Worthlessness, Hopelessness, Unhappiness, Increased Fatigue, Thoughts of /Suicide, Low Self Esteem, Loss of Energy and Difficulty Concentrating Judgement: Fair Diagnostics Vital Signs (24Hr): Vital Signs - 24 hr 09/07/22 19:05 09/08/22 08:00 Temperature 97.4 F Pulse Rate 65 58 Blood Pressure 119/71 151/82 H BMI result Body Mass Index 38.4 Labs Results: 09/06/22 08:35 Medications Medications Current Medications Acetaminophen (Acetaminophen 325 Mg Tablet) 650 mg PO Q6H PRN PRN Reason: Headache/Pain Mild Scale (1-3) Last Admin: 09/06/22 20:19 Dose: 650 mg Al Hydroxide/Mg Hydroxide (Magnesium Hydrox/Alum Hydrox 30 Ml Oral.Susp) 30 ml PO Q6H PRN PRN Reason: Heartburn/Nausea Amphetamine/Dextroamphetamine (Dextroamphetamine/Amphetamine Xr 10 Mg Cap.Er.24h) 10 mg PO DAILY [facility] Last Admin: 09/08/22 08:33 Dose: 10 mg Bupropion HCl (Bupropion Hcl Xl 300 Mg Tab.Er.24h) 300 mg PO DAILY [facility] Last Admin: 09/08/22 08:33 Dose: 300 mg Clonidine HCl (Clonidine Hcl 0.1 Mg Tablet) 0.1 mg PO BID [facility]; Protocol Last Admin: 09/08/22 08:34 Dose: 0.1 mg Escitalopram Oxalate (Escitalopram Oxalate 10 Mg Tablet) 10 mg PO DAILY [facility] Last Admin: 09/08/22 08:33 Dose: 10 mg Ferrous Sulfate (Ferrous Sulfate 324 Mg Tablet.Dr) 324 mg PO DAILY [facility] Last Admin: 09/08/22 08:33 Dose: 324 mg Gabapentin (Gabapentin 400 Mg Capsule) 800 mg PO TID [facility] Last Admin: 09/08/22 14:07 Dose: 800 mg Hydroxyzine HCl (Hydroxyzine Hcl 25 Mg Tablet) 25 mg PO Q6H PRN PRN Reason: Anxiety Last Admin: 09/08/22 12:44 Dose: 25 mg Magnesium Hydroxide (Milk Of Magnesia 30 Ml Oral.Susp) 30 ml PO DAILY PRN PRN Reason: Constipation Methadone HCl (Methadone Hcl 20 Mg/2 Ml Oral.Conc) 140 mg PO DAILY [facility] Last Admin: 09/08/22 08:34 Dose: 140 mg Multivitamins/Vitamin C (Multivitamin Tablet) 1 tab PO DAILY [facility] Last Admin: 09/08/22 08:34 Dose: 1 tab Ondansetron HCl (Ondansetron Hcl 4 Mg/2 Ml Vial) 4 mg IVPUSH Q8H PRN PRN Reason: Nausea and Vomiting Phenobarbital (Phenobarbital 15 Mg Tablet) 15 mg PO DAILY [facility]; Protocol Stop: 09/09/22 09:01 Last Admin: 09/08/22 08:34 Dose: 15 mg Promethazine HCl (Promethazine Hcl 25 Mg Tablet) 25 mg PO TID PRN PRN Reason: Nausea And Vomiting Last Admin: 09/08/22 12:44 Dose: 25 mg Propranolol HCl (Propranolol Hcl 40 Mg Tablet) 40 mg PO BID [facility]; Protocol Last Admin: 09/08/22 08:33 Dose: 40 mg Quetiapine Fumarate (Quetiapine Fumarate 100 Mg Tablet) 100 mg PO BEDTIME [facility] Last Admin: 09/07/22 19:01 Dose: 100 mg Thiamine HCl (Thiamine Hcl 100 Mg Tablet) 100 mg PO DAILY [facility] Last Admin: 09/08/22 08:33 Dose: 100 mg Allergies Allergies Allergy/AdvReac Type Severity Reaction Status Date / Time No Known Allergies Allergy Verified 11/28/21 20:05 Assessment & Plan Assessment & Plan (1) MDD (major depressive disorder), recurrent episode, moderate: Status: Acute Code(s): F33.1 - Major depressive disorder, recurrent, moderate (2) Alcohol use disorder, moderate, dependence: Status: Acute Code(s): F10.20 - Alcohol dependence, uncomplicated (3) Cocaine use disorder, moderate, dependence: Status: Acute Code(s): F14.20 - Cocaine dependence, uncomplicated (4) Opioid use disorder, severe, on maintenance therapy: Status: Acute Code(s): F11.20 - Opioid dependence, uncomplicated (5) ADHD: Status: Acute Code(s): F90.9 - Attention-deficit hyperactivity disorder, unspecified type Plan 41 yo male, hx of recurrent major depression, IWONA, ADHD, PTSD, alcohol and cocaine use disorder, opioid use disorder on maintenance therapy s/p Trazodone overdose. Pt struggling with chronic homelessness, unable to find a program for longer team addiction treatment and stable therapist and medication provider. Pt with anemia-?chronic illness and substance abuse. Pt agreeable to re-establish regime, titrate and search for resources for ongoing care. Plan: Complete Phenobarbital taper Wellbutrin XL 300 mg a.m. Adderall XR 10 mg a.m. FeSO4 324 mg daily MVI i tab daily 09/06/22: Continue current plan. 09/07/22: Clonidine 0.1 mg bid to address anxiety, assist with sleep quality. 09/08/22: Continue current plan of care. I spent minutes with the patient and/or on the patient floor today, greater than?50% of which was spent counseling/coordinating care. Patient educated on: therapeutic strategies Informed Consent: understands Reason for contiued inpatient stay Substantial Risk for: harm to self and rapid decompensation
[2022-09-08] MEDS: QUEtiapine Fumarate 100 MG TABLET PO (20:51)
[2022-09-08 21:02] VITALS: BP 130/72; PULSE 81
[2022-09-09 08:00] VITALS: BP 122/62; PULSE 59; TEMP 36.1
[2022-09-09] MEDS: buPROPion HCl XL 300 MG TAB.ER.24H PO (08:33)
[2022-09-09] MEDS: Dextroamphetamine/Amphetamine XR 10 MG CAP.ER.24H PO (08:33)
[2022-09-09] MEDS: Ferrous Sulfate 324 MG TABLET.DR PO (08:33)
[2022-09-09] MEDS: Propranolol HCL 40 MG TABLET PO ×2 (08:33→20:06)
[2022-09-09] MEDS: cloNIDine HCL 0.1 MG TABLET PO ×2 (08:33→20:05)
[2022-09-09] MEDS: PHENobarbitaL 15 MG TABLET PO (08:33)
[2022-09-09] MEDS: Gabapentin 400 MG CAPSULE 800 MG PO ×3 (08:34→20:05)
[2022-09-09] MEDS: Escitalopram Oxalate 10 MG TABLET PO (08:34)
[2022-09-09] MEDS: Thiamine HCL 100 MG TABLET PO (08:34)
[2022-09-09] MEDS: methADONE HCl 20 MG/2 ML ORAL.CONC 140 MG PO (08:34)
--- NOTE | 2022-09-09 08:43 | P.PNPSI_ITS ---
Subjective Subjective Date of Service: 09/09/22 Reason For Visit: OD, depression Subjective Notes: Conditional Voluntary Interim History: Patient was seen and discussed in rounds today. Records and plans were reviewed. Continues to be depressed, having passive SI. He has been sleeping excessively. Has been refusing a couple of placement possibilities. No charles gerous behaviors reported. No complaints or side effects. No changes were made today Review of Systems Constitutional: Reports no additional constitutional complaints Eyes: Reports no additional eye complaints Reports system reviewed and no additional complaints, except as documented Cardiovascular: Reports no additional cardiovascular complaints Respiratory: Reports no additional respiratory complaints and Reports other (recent recovery from COVID-19) Gastrointestinal: Reports no additional gastrointestinal complaints Genitourinary: Reports no additional male genitourinary complaints Musculoskeletal: Reports no additional musculoskeletal complaints Skin/Breast: Reports system reviewed and no additional complaints, except as docu Reports system reviewed and no additional complaints, except as documented Psychiatric: Reports anxiety, Reports depression, Reports hopelessness, Reports anhedonia and Reports suicidal ideation Endocrine: Reports no additional endocrine complaints Hematologic/Lymphatic: Reports no additional hematologic/lymphatic complaints Allergic/Immunologic: Reports no additional allergic/immunologic complaints Mental Status Exam Mental Status Exam Patient Appearance: Appropriate Patient Orientation: Person, Place, Time and Situation Level of Consciousness: Alert Patient Behavior: Talkative, Cooperative and Good Eye Contact Mood Description: Depressed Affect Description: Flat Patient Cognition Impaired: No Ability to Follow Directions: Good Speech Pattern: Spontaneous Speech Memory Description: Episodic Impaired Hallucinations: None Delusions: Not Present Thought Process: Intact and Goal Oriented Thought Content: positive for Intact and positive for Goal Oriented Depressive Symptoms: Loss of Int. in Activity, Feelings of Worthlessness, Hopelessness, Unhappiness, Increased Fatigue, Thoughts of /Suicide, Low Self Esteem, Loss of Energy and Difficulty Concentrating Judgement: Fair Diagnostics Vital Signs (24Hr): Vital Signs - 24 hr 09/08/22 21:02 Pulse Rate 81 Blood Pressure 130/72 BMI result Body Mass Index 38.4 Labs Results: 09/06/22 08:35 Medications Medications Current Medications Acetaminophen (Acetaminophen 325 Mg Tablet) 650 mg PO Q6H PRN PRN Reason: Headache/Pain Mild Scale (1-3) Last Admin: 09/06/22 20:19 Dose: 650 mg Al Hydroxide/Mg Hydroxide (Magnesium Hydrox/Alum Hydrox 30 Ml Oral.Susp) 30 ml PO Q6H PRN PRN Reason: Heartburn/Nausea Amphetamine/Dextroamphetamine (Dextroamphetamine/Amphetamine Xr 10 Mg Cap.Er.24h) 10 mg PO DAILY [facility] Last Admin: 09/09/22 08:33 Dose: 10 mg Bupropion HCl (Bupropion Hcl Xl 300 Mg Tab.Er.24h) 300 mg PO DAILY [facility] Last Admin: 09/09/22 08:33 Dose: 300 mg Clonidine HCl (Clonidine Hcl 0.1 Mg Tablet) 0.1 mg PO BID [facility]; Protocol Last Admin: 09/09/22 08:33 Dose: 0.1 mg Escitalopram Oxalate (Escitalopram Oxalate 10 Mg Tablet) 10 mg PO DAILY [facility] Last Admin: 09/09/22 08:34 Dose: 10 mg Ferrous Sulfate (Ferrous Sulfate 324 Mg Tablet.Dr) 324 mg PO DAILY [facility] Last Admin: 09/09/22 08:33 Dose: 324 mg Gabapentin (Gabapentin 400 Mg Capsule) 800 mg PO TID [facility] Last Admin: 09/09/22 08:34 Dose: 800 mg Hydroxyzine HCl (Hydroxyzine Hcl 25 Mg Tablet) 25 mg PO Q6H PRN PRN Reason: Anxiety Last Admin: 09/08/22 12:44 Dose: 25 mg Magnesium Hydroxide (Milk Of Magnesia 30 Ml Oral.Susp) 30 ml PO DAILY PRN PRN Reason: Constipation Methadone HCl (Methadone Hcl 20 Mg/2 Ml Oral.Conc) 140 mg PO DAILY [facility] Last Admin: 09/09/22 08:34 Dose: 140 mg Multivitamins/Vitamin C (Multivitamin Tablet) 1 tab PO DAILY [facility] Last Admin: 09/08/22 08:34 Dose: 1 tab Ondansetron HCl (Ondansetron Hcl 4 Mg/2 Ml Vial) 4 mg IVPUSH Q8H PRN PRN Reason: Nausea and Vomiting Phenobarbital (Phenobarbital 15 Mg Tablet) 15 mg PO DAILY [facility]; Protocol Stop: 09/09/22 09:01 Last Admin: 09/09/22 08:33 Dose: 15 mg Promethazine HCl (Promethazine Hcl 25 Mg Tablet) 25 mg PO TID PRN PRN Reason: Nausea And Vomiting Last Admin: 09/08/22 20:51 Dose: 25 mg Propranolol HCl (Propranolol Hcl 40 Mg Tablet) 40 mg PO BID [facility]; Protocol Last Admin: 09/09/22 08:33 Dose: 40 mg Quetiapine Fumarate (Quetiapine Fumarate 100 Mg Tablet) 100 mg PO BEDTIME [facility] Last Admin: 09/08/22 20:51 Dose: 100 mg Thiamine HCl (Thiamine Hcl 100 Mg Tablet) 100 mg PO DAILY [facility] Last Admin: 09/09/22 08:34 Dose: 100 mg Allergies Allergies Allergy/AdvReac Type Severity Reaction Status Date / Time No Known Allergies Allergy Verified 11/28/21 20:05 Assessment & Plan Assessment & Plan (1) MDD (major depressive disorder), recurrent episode, moderate: Status: Acute Code(s): F33.1 - Major depressive disorder, recurrent, moderate (2) Alcohol use disorder, moderate, dependence: Status: Acute Code(s): F10.20 - Alcohol dependence, uncomplicated (3) Cocaine use disorder, moderate, dependence: Status: Acute Code(s): F14.20 - Cocaine dependence, uncomplicated (4) Opioid use disorder, severe, on maintenance therapy: Status: Acute Code(s): F11.20 - Opioid dependence, uncomplicated (5) ADHD: Status: Acute Code(s): F90.9 - Attention-deficit hyperactivity disorder, unspecified type Plan 41 yo male, hx of recurrent major depression, IWONA, ADHD, PTSD, alcohol and cocaine use disorder, opioid use disorder on maintenance therapy s/p Trazodone overdose. Pt struggling with chronic homelessness, unable to find a program for longer team addiction treatment and stable therapist and medication provider. Pt with anemia-?chronic illness and substance abuse. Pt agreeable to re-establish regime, titrate and search for resources for ongoing care. Plan: Complete Phenobarbital taper Wellbutrin XL 300 mg a.m. Adderall XR 10 mg a.m. FeSO4 324 mg daily MVI i tab daily 09/06/22: Continue current plan. 09/07/22: Clonidine 0.1 mg bid to address anxiety, assist with sleep quality. 09/08/22: Continue current plan of care. I spent minutes with the patient and/or on the patient floor today, greater than?50% of which was spent counseling/coordinating care. Reason for contiued inpatient stay Substantial Risk for: harm to self
[2022-09-09] MEDS: Multivitamin TABLET 1 TAB PO (08:50)
[2022-09-09] MEDS: hydrOXYzine HCL 25 MG TABLET PO (13:20)
[2022-09-09] MEDS: Promethazine HCL 25 MG TABLET PO (13:20)
[2022-09-09 20:04] VITALS: BP 108/64; PULSE 71
[2022-09-09] MEDS: QUEtiapine Fumarate 100 MG TABLET PO (20:05)
[2022-09-10 06:00] VITALS: BMI 39.5
[2022-09-10 08:00] VITALS: BP 126/70; PULSE 63; TEMP 36.9; O2SAT 98
[2022-09-10] MEDS: cloNIDine HCL 0.1 MG TABLET PO ×2 (08:31→18:19)
[2022-09-10] MEDS: Multivitamin TABLET 1 TAB PO (08:31)
[2022-09-10] MEDS: Propranolol HCL 40 MG TABLET PO ×2 (08:31→18:19)
[2022-09-10] MEDS: Escitalopram Oxalate 10 MG TABLET PO (08:31)
[2022-09-10] MEDS: Thiamine HCL 100 MG TABLET PO (08:31)
[2022-09-10] MEDS: Gabapentin 400 MG CAPSULE 800 MG PO ×2 (08:31→18:18)
[2022-09-10] MEDS: buPROPion HCl XL 300 MG TAB.ER.24H PO (08:31)
[2022-09-10] MEDS: Dextroamphetamine/Amphetamine XR 10 MG CAP.ER.24H PO (08:31)
[2022-09-10] MEDS: Ferrous Sulfate 324 MG TABLET.DR PO (08:31)
[2022-09-10] MEDS: methADONE HCl 20 MG/2 ML ORAL.CONC 140 MG PO (08:33)
--- NOTE | 2022-09-10 09:22 | HO.PSYCHPN ---
Subjective Subjective Date of Service: 09/10/22 Reason For Visit: OD, depression Subjective Notes: Conditional Voluntary Interim History: Patient was seen and discussed in rounds today. Records and plans were reviewed. He has been doing better and states that he is feeling less depressed. No complaints or side effects. He is more social. He is safe on the unit. No side effects. Eating and sleeping well. No changes were made today Medication Compliance: Yes Side effects from medications: No Attending Groups: Yes Review of Systems Constitutional: Reports no additional constitutional complaints Eyes: Reports no additional eye complaints Reports system reviewed and no additional complaints, except as documented Cardiovascular: Reports no additional cardiovascular complaints Respiratory: Reports no additional respiratory complaints and Reports other (recent recovery from COVID-19) Gastrointestinal: Reports no additional gastrointestinal complaints Genitourinary: Reports no additional male genitourinary complaints Musculoskeletal: Reports no additional musculoskeletal complaints Skin/Breast: Reports system reviewed and no additional complaints, except as docu Reports system reviewed and no additional complaints, except as documented Psychiatric: Reports anxiety, Reports depression, Reports hopelessness, Reports anhedonia and Reports suicidal ideation Endocrine: Reports no additional endocrine complaints Hematologic/Lymphatic: Reports no additional hematologic/lymphatic complaints Allergic/Immunologic: Reports no additional allergic/immunologic complaints Mental Status Exam Mental Status Exam Patient Appearance: Appropriate Patient Orientation: Person, Place, Time and Situation Level of Consciousness: Alert Patient Behavior: Talkative, Cooperative and Good Eye Contact Mood Description: Depressed Affect Description: Flat Patient Cognition Impaired: No Ability to Follow Directions: Good Speech Pattern: Spontaneous Speech Memory Description: Episodic Impaired Hallucinations: None Delusions: Not Present Thought Process: Intact and Goal Oriented Thought Content: positive for Intact and positive for Goal Oriented Depressive Symptoms: Loss of Int. in Activity, Feelings of Worthlessness, Hopelessness, Unhappiness, Increased Fatigue, Thoughts of /Suicide, Low Self Esteem, Loss of Energy and Difficulty Concentrating Judgement: Fair Diagnostics Vital Signs (24Hr): Vital Signs - 24 hr 09/09/22 20:04 Pulse Rate 71 Blood Pressure 108/64 BMI result Body Mass Index 38.4 Labs Results: 09/06/22 08:35 Medications Medications Current Medications Acetaminophen (Acetaminophen 325 Mg Tablet) 650 mg PO Q6H PRN PRN Reason: Headache/Pain Mild Scale (1-3) Last Admin: 09/06/22 20:19 Dose: 650 mg Al Hydroxide/Mg Hydroxide (Magnesium Hydrox/Alum Hydrox 30 Ml Oral.Susp) 30 ml PO Q6H PRN PRN Reason: Heartburn/Nausea Amphetamine/Dextroamphetamine (Dextroamphetamine/Amphetamine Xr 10 Mg Cap.Er.24h) 10 mg PO DAILY [facility] Last Admin: 09/10/22 08:31 Dose: 10 mg Bupropion HCl (Bupropion Hcl Xl 300 Mg Tab.Er.24h) 300 mg PO DAILY [facility] Last Admin: 09/10/22 08:31 Dose: 300 mg Clonidine HCl (Clonidine Hcl 0.1 Mg Tablet) 0.1 mg PO BID [facility]; Protocol Last Admin: 09/10/22 08:31 Dose: 0.1 mg Escitalopram Oxalate (Escitalopram Oxalate 10 Mg Tablet) 10 mg PO DAILY [facility] Last Admin: 09/10/22 08:31 Dose: 10 mg Ferrous Sulfate (Ferrous Sulfate 324 Mg Tablet.Dr) 324 mg PO DAILY [facility] Last Admin: 09/10/22 08:31 Dose: 324 mg Gabapentin (Gabapentin 400 Mg Capsule) 800 mg PO TID [facility] Last Admin: 09/10/22 08:31 Dose: 800 mg Hydroxyzine HCl (Hydroxyzine Hcl 25 Mg Tablet) 25 mg PO Q6H PRN PRN Reason: Anxiety Last Admin: 09/09/22 13:20 Dose: 25 mg Magnesium Hydroxide (Milk Of Magnesia 30 Ml Oral.Susp) 30 ml PO DAILY PRN PRN Reason: Constipation Methadone HCl (Methadone Hcl 20 Mg/2 Ml Oral.Conc) 140 mg PO DAILY [facility] Last Admin: 09/10/22 08:33 Dose: 140 mg Multivitamins/Vitamin C (Multivitamin Tablet) 1 tab PO DAILY [facility] Last Admin: 09/10/22 08:31 Dose: 1 tab Ondansetron HCl (Ondansetron Hcl 4 Mg/2 Ml Vial) 4 mg IVPUSH Q8H PRN PRN Reason: Nausea and Vomiting Promethazine HCl (Promethazine Hcl 25 Mg Tablet) 25 mg PO TID PRN PRN Reason: Nausea And Vomiting Last Admin: 09/09/22 13:20 Dose: 25 mg Propranolol HCl (Propranolol Hcl 40 Mg Tablet) 40 mg PO BID [facility]; Protocol Last Admin: 09/10/22 08:31 Dose: 40 mg Quetiapine Fumarate (Quetiapine Fumarate 100 Mg Tablet) 100 mg PO BEDTIME [facility] Last Admin: 09/09/22 20:05 Dose: 100 mg Thiamine HCl (Thiamine Hcl 100 Mg Tablet) 100 mg PO DAILY [facility] Last Admin: 09/10/22 08:31 Dose: 100 mg Allergies Allergies Allergy/AdvReac Type Severity Reaction Status Date / Time No Known Allergies Allergy Verified 11/28/21 20:05 Assessment & Plan Assessment & Plan (1) MDD (major depressive disorder), recurrent episode, moderate: Status: Acute Code(s): F33.1 - Major depressive disorder, recurrent, moderate (2) Alcohol use disorder, moderate, dependence: Status: Acute Code(s): F10.20 - Alcohol dependence, uncomplicated (3) Cocaine use disorder, moderate, dependence: Status: Acute Code(s): F14.20 - Cocaine dependence, uncomplicated (4) Opioid use disorder, severe, on maintenance therapy: Status: Acute Code(s): F11.20 - Opioid dependence, uncomplicated (5) ADHD: Status: Acute Code(s): F90.9 - Attention-deficit hyperactivity disorder, unspecified type Plan 41 yo male, hx of recurrent major depression, IWONA, ADHD, PTSD, alcohol and cocaine use disorder, opioid use disorder on maintenance therapy s/p Trazodone overdose. Pt struggling with chronic homelessness, unable to find a program for longer team addiction treatment and stable therapist and medication provider. Pt with anemia-?chronic illness and substance abuse. Pt agreeable to re-establish regime, titrate and search for resources for ongoing care. Plan: Complete Phenobarbital taper Wellbutrin XL 300 mg a.m. Adderall XR 10 mg a.m. FeSO4 324 mg daily [facility] i tab daily 09/06/22: Continue current plan. 09/07/22: Clonidine 0.1 mg bid to address anxiety, assist with sleep quality. 09/08/22: Continue current plan of care. 09/09: Continue current Regimen and plans 09/10: Continue current regimen and plans I spent minutes with the patient and/or on the patient floor today, greater than?50% of which was spent counseling/coordinating care. Reason for contiued inpatient stay Substantial Risk for: other
[2022-09-10] MEDS: Promethazine HCL 25 MG TABLET PO ×2 (11:37→18:19)
[2022-09-10] MEDS: hydrOXYzine HCL 25 MG TABLET PO ×2 (11:44→18:19)
[2022-09-10] MEDS: QUEtiapine Fumarate 100 MG TABLET PO (18:19)
[2022-09-10 20:20] VITALS: BP 130/74; PULSE 70
[2022-09-11 08:15] VITALS: BP 128/85; PULSE 61; RESP 18; TEMP 36.2; O2SAT 98
[2022-09-11] MEDS: buPROPion HCl XL 300 MG TAB.ER.24H PO (08:17)
[2022-09-11] MEDS: Dextroamphetamine/Amphetamine XR 10 MG CAP.ER.24H PO (08:17)
[2022-09-11] MEDS: Gabapentin 400 MG CAPSULE 800 MG PO (08:17)
[2022-09-11] MEDS: Escitalopram Oxalate 10 MG TABLET PO (08:18)
[2022-09-11] MEDS: Ferrous Sulfate 324 MG TABLET.DR PO (08:18)
[2022-09-11] MEDS: methADONE HCl 20 MG/2 ML ORAL.CONC 140 MG PO (08:18)
[2022-09-11] MEDS: Multivitamin TABLET 1 TAB PO (08:18)
[2022-09-11] MEDS: Thiamine HCL 100 MG TABLET PO (08:18)
[2022-09-11] MEDS: Propranolol HCL 40 MG TABLET PO ×2 (08:42→19:26)
[2022-09-11] MEDS: cloNIDine HCL 0.1 MG TABLET PO ×2 (08:42→19:26)
[2022-09-11] MEDS: Promethazine HCL 25 MG TABLET PO (11:31)
[2022-09-11] MEDS: hydrOXYzine HCL 25 MG TABLET PO (11:32)
[2022-09-11] MEDS: Gabapentin 300 MG CAPSULE 600 MG PO ×2 (15:05→19:25)
--- NOTE | 2022-09-11 17:27 | HO.PSYCHPN ---
Subjective Subjective Date of Service: 09/11/22 Reason For Visit: OD, depression Subjective Notes: Conditional Voluntary Healthcare Proxy: No Guardianship: No Medical Problems Affecting Mental Status: No Interim History: Pt has refused placement with [facility] and [facility]. He will interview with [facility] and nona to be accepted. Denies sx of anxiety, depression, SI, HI. Team reports an increase in sedation-will decrease Gabapentin to 600 mg tid from 800 mg tid. Napping when approached today at 4pm. Medication Compliance: Yes Side effects from medications: Yes (sedation) Attending Groups: Intermittent Review of Systems Acute medical concerns: No Medical Review of Systems: unchanged Mental Status Exam Mental Status Exam Patient Appearance: Appropriate Patient Orientation: Person, Place, Time and Situation Level of Consciousness: Sedated and Alert Patient Behavior: Talkative, Cooperative and Good Eye Contact Mood Description: Depressed Affect Description: Flat Patient Cognition Impaired: No Ability to Follow Directions: Good Speech Pattern: Spontaneous Speech Memory Description: Episodic Impaired Hallucinations: None Delusions: Not Present Thought Process: Intact and Goal Oriented Thought Content: positive for Intact and positive for Goal Oriented Depressive Symptoms: Loss of Int. in Activity, Feelings of Worthlessness, Hopelessness, Unhappiness, Increased Fatigue, Low Self Esteem, Loss of Energy and Difficulty Concentrating Judgement: Fair Diagnostics Vital Signs (24Hr): Vital Signs - 24 hr 09/10/22 20:20 09/11/22 08:15 Temperature 97.1 F Pulse Rate 70 61 Respiratory Rate 18 Blood Pressure 130/74 128/85 Pulse Oximetry 98 Oxygen Delivery Method Room Air BMI result Body Mass Index 39.5 Labs Results: 09/06/22 08:35 Medications Medications Current Medications Acetaminophen (Acetaminophen 325 Mg Tablet) 650 mg PO Q6H PRN PRN Reason: Headache/Pain Mild Scale (1-3) Last Admin: 09/06/22 20:19 Dose: 650 mg Al Hydroxide/Mg Hydroxide (Magnesium Hydrox/Alum Hydrox 30 Ml Oral.Susp) 30 ml PO Q6H PRN PRN Reason: Heartburn/Nausea Amphetamine/Dextroamphetamine (Dextroamphetamine/Amphetamine Xr 10 Mg Cap.Er.24h) 10 mg PO DAILY [facility] Last Admin: 09/11/22 08:17 Dose: 10 mg Bupropion HCl (Bupropion Hcl Xl 300 Mg Tab.Er.24h) 300 mg PO DAILY [facility] Last Admin: 09/11/22 08:17 Dose: 300 mg Clonidine HCl (Clonidine Hcl 0.1 Mg Tablet) 0.1 mg PO BID [facility]; Protocol Last Admin: 09/11/22 08:42 Dose: 0.1 mg Escitalopram Oxalate (Escitalopram Oxalate 10 Mg Tablet) 10 mg PO DAILY [facility] Last Admin: 09/11/22 08:18 Dose: 10 mg Ferrous Sulfate (Ferrous Sulfate 324 Mg Tablet.Dr) 324 mg PO DAILY [facility] Last Admin: 09/11/22 08:18 Dose: 324 mg Gabapentin (Gabapentin 300 Mg Capsule) 600 mg PO TID [facility] Last Admin: 09/11/22 15:05 Dose: 600 mg Hydroxyzine HCl (Hydroxyzine Hcl 25 Mg Tablet) 25 mg PO Q6H PRN PRN Reason: Anxiety Last Admin: 09/11/22 11:32 Dose: 25 mg Magnesium Hydroxide (Milk Of Magnesia 30 Ml Oral.Susp) 30 ml PO DAILY PRN PRN Reason: Constipation Methadone HCl (Methadone Hcl 20 Mg/2 Ml Oral.Conc) 140 mg PO DAILY [facility] Last Admin: 09/11/22 08:18 Dose: 140 mg Multivitamins/Vitamin C (Multivitamin Tablet) 1 tab PO DAILY [facility] Last Admin: 09/11/22 08:18 Dose: 1 tab Ondansetron HCl (Ondansetron Hcl 4 Mg/2 Ml Vial) 4 mg IVPUSH Q8H PRN PRN Reason: Nausea and Vomiting Promethazine HCl (Promethazine Hcl 25 Mg Tablet) 25 mg PO TID PRN PRN Reason: Nausea And Vomiting Last Admin: 09/11/22 11:31 Dose: 25 mg Propranolol HCl (Propranolol Hcl 40 Mg Tablet) 40 mg PO BID [facility]; Protocol Last Admin: 09/11/22 08:42 Dose: 40 mg Quetiapine Fumarate (Quetiapine Fumarate 100 Mg Tablet) 100 mg PO BEDTIME [facility] Last Admin: 09/10/22 18:19 Dose: 100 mg Thiamine HCl (Thiamine Hcl 100 Mg Tablet) 100 mg PO DAILY [facility] Last Admin: 09/11/22 08:18 Dose: 100 mg Allergies Allergies Allergy/AdvReac Type Severity Reaction Status Date / Time No Known Allergies Allergy Verified 11/28/21 20:05 Assessment & Plan Assessment & Plan (1) MDD (major depressive disorder), recurrent episode, moderate: Status: Acute Code(s): F33.1 - Major depressive disorder, recurrent, moderate (2) Alcohol use disorder, moderate, dependence: Status: Acute Code(s): F10.20 - Alcohol dependence, uncomplicated (3) Cocaine use disorder, moderate, dependence: Status: Acute Code(s): F14.20 - Cocaine dependence, uncomplicated (4) Opioid use disorder, severe, on maintenance therapy: Status: Acute Code(s): F11.20 - Opioid dependence, uncomplicated (5) ADHD: Status: Acute Code(s): F90.9 - Attention-deficit hyperactivity disorder, unspecified type Plan 41 yo male, hx of recurrent major depression, IWONA, ADHD, PTSD, alcohol and cocaine use disorder, opioid use disorder on maintenance therapy s/p Trazodone overdose. Pt struggling with chronic homelessness, unable to find a program for longer team addiction treatment and stable therapist and medication provider. Pt with anemia-?chronic illness and substance abuse. Pt agreeable to re-establish regime, titrate and search for resources for ongoing care. Plan: Complete Phenobarbital taper Wellbutrin XL 300 mg a.m. Adderall XR 10 mg a.m. FeSO4 324 mg daily [facility] i tab daily 09/06/22: Continue current plan. 09/07/22: Clonidine 0.1 mg bid to address anxiety, assist with sleep quality. 09/08/22: Continue current plan of care. 09/09: Continue current Regimen and plans 09/10: Continue current regimen and plans 09/11/22: Continue current regime and plan of care I spent minutes with the patient and/or on the patient floor today, greater than?50% of which was spent counseling/coordinating care. Informed Consent: understands Reason for contiued inpatient stay Substantial Risk for: harm to self and rapid decompensation
[2022-09-11 19:25] VITALS: BP 117/61; PULSE 67; TEMP 35.8; O2SAT 99
[2022-09-11] MEDS: QUEtiapine Fumarate 100 MG TABLET PO (19:25)
[2022-09-12 07:55] VITALS: BP 134/71; PULSE 56; TEMP 36.3; O2SAT 98
[2022-09-12] MEDS: methADONE HCl 20 MG/2 ML ORAL.CONC 140 MG PO (08:19)
[2022-09-12] MEDS: cloNIDine HCL 0.1 MG TABLET PO ×2 (08:20→19:10)
[2022-09-12] MEDS: Multivitamin TABLET 1 TAB PO (08:20)
[2022-09-12] MEDS: Thiamine HCL 100 MG TABLET PO (08:20)
[2022-09-12] MEDS: Gabapentin 300 MG CAPSULE 600 MG PO ×3 (08:20→19:10)
[2022-09-12] MEDS: hydrOXYzine HCL 25 MG TABLET PO ×3 (08:20→19:10)
[2022-09-12] MEDS: Escitalopram Oxalate 10 MG TABLET PO (08:20)
[2022-09-12] MEDS: Dextroamphetamine/Amphetamine XR 10 MG CAP.ER.24H PO (08:20)
[2022-09-12] MEDS: Propranolol HCL 40 MG TABLET PO ×2 (08:20→19:11)
[2022-09-12] MEDS: Ferrous Sulfate 324 MG TABLET.DR PO (08:20)
[2022-09-12] MEDS: buPROPion HCl XL 300 MG TAB.ER.24H PO (08:21)
[2022-09-12] MEDS: Promethazine HCL 25 MG TABLET PO ×2 (08:21→14:45)
[2022-09-12 16:27] VITALS: BP 131/82; PULSE 63; RESP 16; TEMP 36.3; O2SAT 98
[2022-09-12 19:05] VITALS: BP 123/79; PULSE 65
[2022-09-12] MEDS: QUEtiapine Fumarate 100 MG TABLET PO (19:11)
--- NOTE | 2022-09-12 20:06 | P.PNPSI_ITS ---
Subjective Subjective Date of Service: 09/12/22 Reason For Visit: OD, depression Subjective Notes: Conditional Voluntary Healthcare Proxy: No Guardianship: No Medical Problems Affecting Mental Status: No Interim History: Looking forward to interview with [facility]. States he is hoping for acceptance. Denies sx of concern today. Reports regime to be intact. Medication Compliance: Yes Side effects from medications: No Attending Groups: Intermittent Review of Systems Acute medical concerns: No Medical Review of Systems: unchanged Mental Status Exam Mental Status Exam Patient Appearance: Appropriate Patient Orientation: Person, Place, Time and Situation Level of Consciousness: Sedated and Alert Patient Behavior: Talkative, Cooperative and Good Eye Contact Mood Description: Depressed Affect Description: Flat Patient Cognition Impaired: No Ability to Follow Directions: Good Speech Pattern: Spontaneous Speech Memory Description: Episodic Impaired Hallucinations: None Delusions: Not Present Thought Process: Intact and Goal Oriented Thought Content: positive for Intact and positive for Goal Oriented Depressive Symptoms: Loss of Int. in Activity, Feelings of Worthlessness, Hopelessness, Unhappiness, Increased Fatigue, Low Self Esteem, Loss of Energy and Difficulty Concentrating Judgement: Fair Diagnostics Vital Signs (24Hr): Vital Signs - 24 hr 09/12/22 07:55 09/12/22 16:27 09/12/22 19:05 Temperature 97.4 F 97.4 F Pulse Rate 56 63 65 Respiratory Rate 16 Blood Pressure 134/71 131/82 123/79 Pulse Oximetry 98 98 Oxygen Delivery Method Room Air Room Air BMI result Body Mass Index 39.5 Labs Results: 09/06/22 08:35 Medications Medications Current Medications Acetaminophen (Acetaminophen 325 Mg Tablet) 650 mg PO Q6H PRN PRN Reason: Headache/Pain Mild Scale (1-3) Last Admin: 09/06/22 20:19 Dose: 650 mg Al Hydroxide/Mg Hydroxide (Magnesium Hydrox/Alum Hydrox 30 Ml Oral.Susp) 30 ml PO Q6H PRN PRN Reason: Heartburn/Nausea Amphetamine/Dextroamphetamine (Dextroamphetamine/Amphetamine Xr 10 Mg Cap.Er.24h) 10 mg PO DAILY [facility] Last Admin: 09/12/22 08:20 Dose: 10 mg Bupropion HCl (Bupropion Hcl Xl 300 Mg Tab.Er.24h) 300 mg PO DAILY [facility] Last Admin: 09/12/22 08:21 Dose: 300 mg Clonidine HCl (Clonidine Hcl 0.1 Mg Tablet) 0.1 mg PO BID [facility]; Protocol Last Admin: 09/12/22 19:10 Dose: 0.1 mg Escitalopram Oxalate (Escitalopram Oxalate 10 Mg Tablet) 10 mg PO DAILY [facility] Last Admin: 09/12/22 08:20 Dose: 10 mg Ferrous Sulfate (Ferrous Sulfate 324 Mg Tablet.Dr) 324 mg PO DAILY [facility] Last Admin: 09/12/22 08:20 Dose: 324 mg Gabapentin (Gabapentin 300 Mg Capsule) 600 mg PO TID [facility] Last Admin: 09/12/22 19:10 Dose: 600 mg Hydroxyzine HCl (Hydroxyzine Hcl 25 Mg Tablet) 25 mg PO Q6H PRN PRN Reason: Anxiety Last Admin: 09/12/22 19:10 Dose: 25 mg Magnesium Hydroxide (Milk Of Magnesia 30 Ml Oral.Susp) 30 ml PO DAILY PRN PRN Reason: Constipation Methadone HCl (Methadone Hcl 20 Mg/2 Ml Oral.Conc) 140 mg PO DAILY [facility] Last Admin: 09/12/22 08:19 Dose: 140 mg Multivitamins/Vitamin C (Multivitamin Tablet) 1 tab PO DAILY [facility] Last Admin: 09/12/22 08:20 Dose: 1 tab Ondansetron HCl (Ondansetron Hcl 4 Mg/2 Ml Vial) 4 mg IVPUSH Q8H PRN PRN Reason: Nausea and Vomiting Promethazine HCl (Promethazine Hcl 25 Mg Tablet) 25 mg PO TID PRN PRN Reason: Nausea And Vomiting Last Admin: 09/12/22 14:45 Dose: 25 mg Propranolol HCl (Propranolol Hcl 40 Mg Tablet) 40 mg PO BID [facility]; Protocol Last Admin: 09/12/22 19:11 Dose: 40 mg Quetiapine Fumarate (Quetiapine Fumarate 100 Mg Tablet) 100 mg PO BEDTIME [facility] Last Admin: 09/12/22 19:11 Dose: 100 mg Thiamine HCl (Thiamine Hcl 100 Mg Tablet) 100 mg PO DAILY [facility] Last Admin: 09/12/22 08:20 Dose: 100 mg Allergies Allergies Allergy/AdvReac Type Severity Reaction Status Date / Time No Known Allergies Allergy Verified 11/28/21 20:05 Assessment & Plan Assessment & Plan (1) MDD (major depressive disorder), recurrent episode, moderate: Status: Acute Code(s): F33.1 - Major depressive disorder, recurrent, moderate (2) Alcohol use disorder, moderate, dependence: Status: Acute Code(s): F10.20 - Alcohol dependence, uncomplicated (3) Cocaine use disorder, moderate, dependence: Status: Acute Code(s): F14.20 - Cocaine dependence, uncomplicated (4) Opioid use disorder, severe, on maintenance therapy: Status: Acute Code(s): F11.20 - Opioid dependence, uncomplicated (5) ADHD: Status: Acute Code(s): F90.9 - Attention-deficit hyperactivity disorder, unspecified type Plan 41 yo male, hx of recurrent major depression, IWONA, ADHD, PTSD, alcohol and cocaine use disorder, opioid use disorder on maintenance therapy s/p Trazodone overdose. Pt struggling with chronic homelessness, unable to find a program for longer team addiction treatment and stable therapist and medication provider. Pt with anemia-?chronic illness and substance abuse. Pt agreeable to re-establish regime, titrate and search for resources for ongoing care. Plan: Complete Phenobarbital taper Wellbutrin XL 300 mg a.m. Adderall XR 10 mg a.m. FeSO4 324 mg daily MVI i tab daily 09/06/22: Continue current plan. 09/07/22: Clonidine 0.1 mg bid to address anxiety, assist with sleep quality. 09/08/22: Continue current plan of care. 09/09: Continue current Regimen and plans 09/10: Continue current regimen and plans 09/12/22 Continue current regime and plan of care. I spent minutes with the patient and/or on the patient floor today, greater than?50% of which was spent counseling/coordinating care. Informed Consent: understands Reason for contiued inpatient stay Substantial Risk for: harm to self and rapid decompensation
[2022-09-13 08:35] VITALS: BP 143/83; PULSE 63; TEMP 36.2; O2SAT 99
[2022-09-13] MEDS: cloNIDine HCL 0.1 MG TABLET PO ×2 (08:48→20:29)
[2022-09-13] MEDS: Escitalopram Oxalate 10 MG TABLET PO (08:48)
[2022-09-13] MEDS: Dextroamphetamine/Amphetamine XR 10 MG CAP.ER.24H PO (08:48)
[2022-09-13] MEDS: Multivitamin TABLET 1 TAB PO (08:48)
[2022-09-13] MEDS: Gabapentin 300 MG CAPSULE 600 MG PO ×3 (08:48→20:25)
[2022-09-13] MEDS: buPROPion HCl XL 300 MG TAB.ER.24H PO (08:48)
[2022-09-13] MEDS: methADONE HCl 20 MG/2 ML ORAL.CONC 140 MG PO (08:49)
[2022-09-13] MEDS: Thiamine HCL 100 MG TABLET PO (08:49)
[2022-09-13] MEDS: Ferrous Sulfate 324 MG TABLET.DR PO (08:49)
[2022-09-13] MEDS: Propranolol HCL 40 MG TABLET PO ×2 (08:49→20:29)
[2022-09-13] MEDS: Promethazine HCL 25 MG TABLET PO (14:35)
[2022-09-13] MEDS: hydrOXYzine HCL 25 MG TABLET PO ×2 (14:35→20:30)
--- NOTE | 2022-09-13 16:14 | HO.PSYCHPN ---
Subjective Subjective Date of Service: 09/13/22 Reason For Visit: OD, depression Subjective Notes: Conditional Voluntary Healthcare Proxy: No Guardianship: No Medical Problems Affecting Mental Status: No Interim History: Med review with pt. Discussed increasing clonidine and adderall dosing. Reports pain in hands, fingers at times. Hopeful he will be accepted to [facility] Medication Compliance: Yes Side effects from medications: No Attending Groups: Intermittent Review of Systems Acute medical concerns: No Medical Review of Systems: unchanged Mental Status Exam Mental Status Exam Patient Appearance: Appropriate Patient Orientation: Person, Place, Time and Situation Level of Consciousness: Sedated and Alert Patient Behavior: Talkative, Cooperative and Good Eye Contact Mood Description: Depressed Affect Description: Flat Patient Cognition Impaired: No Ability to Follow Directions: Good Speech Pattern: Spontaneous Speech Memory Description: Episodic Impaired Hallucinations: None Delusions: Not Present Thought Process: Intact and Goal Oriented Thought Content: positive for Intact and positive for Goal Oriented Depressive Symptoms: Loss of Int. in Activity, Feelings of Worthlessness, Hopelessness, Unhappiness, Increased Fatigue, Low Self Esteem, Loss of Energy and Difficulty Concentrating Judgement: Fair Diagnostics Vital Signs (24Hr): Vital Signs - 24 hr 09/12/22 16:27 09/12/22 19:05 09/13/22 08:35 Temperature 97.4 F 97.2 F Pulse Rate 63 65 63 Respiratory Rate 16 Blood Pressure 131/82 123/79 143/83 H Pulse Oximetry 98 99 Oxygen Delivery Method Room Air Room Air BMI result Body Mass Index 39.5 Labs Results: 09/06/22 08:35 Medications Medications Current Medications Acetaminophen (Acetaminophen 325 Mg Tablet) 650 mg PO Q6H PRN PRN Reason: Headache/Pain Mild Scale (1-3) Last Admin: 09/06/22 20:19 Dose: 650 mg Al Hydroxide/Mg Hydroxide (Magnesium Hydrox/Alum Hydrox 30 Ml Oral.Susp) 30 ml PO Q6H PRN PRN Reason: Heartburn/Nausea Amphetamine/Dextroamphetamine (Dextroamphetamine/Amphetamine Xr 10 Mg Cap.Er.24h) 10 mg PO DAILY [facility] Last Admin: 09/13/22 08:48 Dose: 10 mg Bupropion HCl (Bupropion Hcl Xl 300 Mg Tab.Er.24h) 300 mg PO DAILY [facility] Last Admin: 09/13/22 08:48 Dose: 300 mg Clonidine HCl (Clonidine Hcl 0.1 Mg Tablet) 0.1 mg PO BID [facility]; Protocol Last Admin: 09/13/22 08:48 Dose: 0.1 mg Escitalopram Oxalate (Escitalopram Oxalate 10 Mg Tablet) 10 mg PO DAILY [facility] Last Admin: 09/13/22 08:48 Dose: 10 mg Ferrous Sulfate (Ferrous Sulfate 324 Mg Tablet.Dr) 324 mg PO DAILY [facility] Last Admin: 09/13/22 08:49 Dose: 324 mg Gabapentin (Gabapentin 300 Mg Capsule) 600 mg PO TID [facility] Last Admin: 09/13/22 14:35 Dose: 600 mg Hydroxyzine HCl (Hydroxyzine Hcl 25 Mg Tablet) 25 mg PO Q6H PRN PRN Reason: Anxiety Last Admin: 09/13/22 14:35 Dose: 25 mg Magnesium Hydroxide (Milk Of Magnesia 30 Ml Oral.Susp) 30 ml PO DAILY PRN PRN Reason: Constipation Methadone HCl (Methadone Hcl 20 Mg/2 Ml Oral.Conc) 140 mg PO DAILY [facility] Last Admin: 09/13/22 08:49 Dose: 140 mg Multivitamins/Vitamin C (Multivitamin Tablet) 1 tab PO DAILY [facility] Last Admin: 09/13/22 08:48 Dose: 1 tab Ondansetron HCl (Ondansetron Hcl 4 Mg/2 Ml Vial) 4 mg IVPUSH Q8H PRN PRN Reason: Nausea and Vomiting Promethazine HCl (Promethazine Hcl 25 Mg Tablet) 25 mg PO TID PRN PRN Reason: Nausea And Vomiting Last Admin: 09/13/22 14:35 Dose: 25 mg Propranolol HCl (Propranolol Hcl 40 Mg Tablet) 40 mg PO BID [facility]; Protocol Last Admin: 09/13/22 08:49 Dose: 40 mg Quetiapine Fumarate (Quetiapine Fumarate 100 Mg Tablet) 100 mg PO BEDTIME [facility] Last Admin: 09/12/22 19:11 Dose: 100 mg Thiamine HCl (Thiamine Hcl 100 Mg Tablet) 100 mg PO DAILY [facility] Last Admin: 09/13/22 08:49 Dose: 100 mg Allergies Allergies Allergy/AdvReac Type Severity Reaction Status Date / Time No Known Allergies Allergy Verified 11/28/21 20:05 Assessment & Plan Assessment & Plan (1) MDD (major depressive disorder), recurrent episode, moderate: Status: Acute Code(s): F33.1 - Major depressive disorder, recurrent, moderate (2) Alcohol use disorder, moderate, dependence: Status: Acute Code(s): F10.20 - Alcohol dependence, uncomplicated (3) Cocaine use disorder, moderate, dependence: Status: Acute Code(s): F14.20 - Cocaine dependence, uncomplicated (4) Opioid use disorder, severe, on maintenance therapy: Status: Acute Code(s): F11.20 - Opioid dependence, uncomplicated (5) ADHD: Status: Acute Code(s): F90.9 - Attention-deficit hyperactivity disorder, unspecified type Plan 41 yo male, hx of recurrent major depression, IWONA, ADHD, PTSD, alcohol and cocaine use disorder, opioid use disorder on maintenance therapy s/p Trazodone overdose. Pt struggling with chronic homelessness, unable to find a program for longer team addiction treatment and stable therapist and medication provider. Pt with anemia-?chronic illness and substance abuse. Pt agreeable to re-establish regime, titrate and search for resources for ongoing care. Plan: Complete Phenobarbital taper Wellbutrin XL 300 mg a.m. Adderall XR 10 mg a.m. FeSO4 324 mg daily MVI i tab daily 09/06/22: Continue current plan. 09/07/22: Clonidine 0.1 mg bid to address anxiety, assist with sleep quality. 09/08/22: Continue current plan of care. 09/09: Continue current Regimen and plans 09/10: Continue current regimen and plans 09/11/22: Continue current regime and plan of care 09/13/22: Placement search continues. Continue current regime and plan of care. I spent minutes with the patient and/or on the patient floor today, greater than?50% of which was spent counseling/coordinating care. Patient educated on: therapeutic strategies Informed Consent: understands Reason for contiued inpatient stay Substantial Risk for: harm to self, inability to function and rapid decompensation
[2022-09-13] MEDS: QUEtiapine Fumarate 100 MG TABLET PO (20:29)
[2022-09-14 07:00] VITALS: BMI 39.3
[2022-09-14 08:09] VITALS: BP 134/69; PULSE 60; RESP 16; TEMP 35.9; O2SAT 97
[2022-09-14] MEDS: Thiamine HCL 100 MG TABLET PO (08:09)
[2022-09-14] MEDS: methADONE HCl 20 MG/2 ML ORAL.CONC 140 MG PO (08:09)
[2022-09-14] MEDS: Gabapentin 300 MG CAPSULE 600 MG PO ×3 (08:09→18:20)
[2022-09-14] MEDS: Escitalopram Oxalate 10 MG TABLET PO (08:09)
[2022-09-14] MEDS: Dextroamphetamine/Amphetamine XR 10 MG CAP.ER.24H PO (08:09)
[2022-09-14] MEDS: buPROPion HCl XL 300 MG TAB.ER.24H PO (08:10)
[2022-09-14] MEDS: Multivitamin TABLET 1 TAB PO (08:10)
[2022-09-14] MEDS: Ferrous Sulfate 324 MG TABLET.DR PO (08:10)
[2022-09-14] MEDS: cloNIDine HCL 0.1 MG TABLET PO (08:42)
[2022-09-14] MEDS: Propranolol HCL 40 MG TABLET PO ×2 (08:42→18:21)
[2022-09-14] MEDS: Promethazine HCL 25 MG TABLET PO ×2 (13:16→18:21)
[2022-09-14] MEDS: hydrOXYzine HCL 25 MG TABLET PO ×2 (13:18→18:21)
--- NOTE | 2022-09-14 16:55 | P.PNPSI_ITS ---
Subjective Subjective Date of Service: 09/14/22 Reason For Visit: OD, depression Subjective Notes: Conditional Voluntary Healthcare Proxy: No Guardianship: No Medical Problems Affecting Mental Status: No Interim History: Continues to wait for interviews for residential programs. Denies issues with regime, Denies SE Sleeping and eating well he reports No SI, HI, anxiety about if I will be accepted . Medication Compliance: Yes Side effects from medications: No Attending Groups: Intermittent Review of Systems Acute medical concerns: No Medical Review of Systems: unchanged Mental Status Exam Mental Status Exam Patient Appearance: Appropriate Patient Orientation: Person, Place, Time and Situation Level of Consciousness: Sedated and Alert Patient Behavior: Talkative, Cooperative and Good Eye Contact Mood Description: Depressed Affect Description: Flat Patient Cognition Impaired: No Ability to Follow Directions: Good Speech Pattern: Spontaneous Speech Memory Description: Episodic Impaired Hallucinations: None Delusions: Not Present Thought Process: Intact and Goal Oriented Thought Content: positive for Intact and positive for Goal Oriented Depressive Symptoms: Loss of Int. in Activity, Feelings of Worthlessness, Hopelessness, Unhappiness, Increased Fatigue, Low Self Esteem, Loss of Energy and Difficulty Concentrating Judgement: Fair Diagnostics Vital Signs (24Hr): Vital Signs - 24 hr 09/14/22 08:09 Temperature 96.6 F L Pulse Rate 60 Respiratory Rate 16 Blood Pressure 134/69 Pulse Oximetry 97 Oxygen Delivery Method Room Air BMI result Body Mass Index 39.3 Labs Results: 09/06/22 08:35 Medications Medications Current Medications Acetaminophen (Acetaminophen 325 Mg Tablet) 650 mg PO Q6H PRN PRN Reason: Headache/Pain Mild Scale (1-3) Last Admin: 09/06/22 20:19 Dose: 650 mg Al Hydroxide/Mg Hydroxide (Magnesium Hydrox/Alum Hydrox 30 Ml Oral.Susp) 30 ml PO Q6H PRN PRN Reason: Heartburn/Nausea Amphetamine/Dextroamphetamine (Dextroamphetamine/Amphetamine Xr 10 Mg Cap.Er.24h) 20 mg PO DAILY [facility] Bupropion HCl (Bupropion Hcl Xl 300 Mg Tab.Er.24h) 300 mg PO DAILY [facility] Last Admin: 09/14/22 08:10 Dose: 300 mg Clonidine HCl (Clonidine Hcl 0.2 Mg Tablet) 0.2 mg PO BID [facility]; Protocol Escitalopram Oxalate (Escitalopram Oxalate 10 Mg Tablet) 10 mg PO DAILY [facility] Last Admin: 09/14/22 08:09 Dose: 10 mg Ferrous Sulfate (Ferrous Sulfate 324 Mg Tablet.) 324 mg PO DAILY [facility] Last Admin: 09/14/22 08:10 Dose: 324 mg Gabapentin (Gabapentin 300 Mg Capsule) 600 mg PO TID [facility] Last Admin: 09/14/22 14:21 Dose: 600 mg Hydroxyzine HCl (Hydroxyzine Hcl 25 Mg Tablet) 25 mg PO Q6H PRN PRN Reason: Anxiety Last Admin: 09/14/22 13:18 Dose: 25 mg Magnesium Hydroxide (Milk Of Magnesia 30 Ml Oral.Susp) 30 ml PO DAILY PRN PRN Reason: Constipation Methadone HCl (Methadone Hcl 20 Mg/2 Ml Oral.Conc) 140 mg PO DAILY [facility] Last Admin: 09/14/22 08:09 Dose: 140 mg Multivitamins/Vitamin C (Multivitamin Tablet) 1 tab PO DAILY [facility] Last Admin: 09/14/22 08:10 Dose: 1 tab Ondansetron HCl (Ondansetron Hcl 4 Mg/2 Ml Vial) 4 mg IVPUSH Q8H PRN PRN Reason: Nausea and Vomiting Promethazine HCl (Promethazine Hcl 25 Mg Tablet) 25 mg PO TID PRN PRN Reason: Nausea And Vomiting Last Admin: 09/14/22 13:16 Dose: 25 mg Propranolol HCl (Propranolol Hcl 40 Mg Tablet) 40 mg PO BID [facility]; Protocol Last Admin: 09/14/22 08:42 Dose: 40 mg Quetiapine Fumarate (Quetiapine Fumarate 100 Mg Tablet) 100 mg PO BEDTIME [facility] Last Admin: 09/13/22 20:29 Dose: 100 mg Thiamine HCl (Thiamine Hcl 100 Mg Tablet) 100 mg PO DAILY [facility] Last Admin: 09/14/22 08:09 Dose: 100 mg Allergies Allergies Allergy/AdvReac Type Severity Reaction Status Date / Time No Known Allergies Allergy Verified 11/28/21 20:05 Assessment & Plan Assessment & Plan (1) MDD (major depressive disorder), recurrent episode, moderate: Status: Acute Code(s): F33.1 - Major depressive disorder, recurrent, moderate (2) Alcohol use disorder, moderate, dependence: Status: Acute Code(s): F10.20 - Alcohol dependence, uncomplicated (3) Cocaine use disorder, moderate, dependence: Status: Acute Code(s): F14.20 - Cocaine dependence, uncomplicated (4) Opioid use disorder, severe, on maintenance therapy: Status: Acute Code(s): F11.20 - Opioid dependence, uncomplicated (5) ADHD: Status: Acute Code(s): F90.9 - Attention-deficit hyperactivity disorder, unspecified type Plan 41 yo male, hx of recurrent major depression, IWONA, ADHD, PTSD, alcohol and cocaine use disorder, opioid use disorder on maintenance therapy s/p Trazodone overdose. Pt struggling with chronic homelessness, unable to find a program for longer team addiction treatment and stable therapist and medication provider. Pt with anemia-?chronic illness and substance abuse. Pt agreeable to re-establish regime, titrate and search for resources for ongoing care. Plan: Complete Phenobarbital taper Wellbutrin XL 300 mg a.m. Adderall XR 10 mg a.m. FeSO4 324 mg daily MVI i tab daily 09/06/22: Continue current plan. 09/07/22: Clonidine 0.1 mg bid to address anxiety, assist with sleep quality. 09/08/22: Continue current plan of care. 09/09: Continue current Regimen and plans 09/10: Continue current regimen and plans 09/12/22 Continue current regime and plan of care. 09/13/22: Continue current plan I spent minutes with the patient and/or on the patient floor today, greater than?50% of which was spent counseling/coordinating care. Informed Consent: understands Reason for contiued inpatient stay Substantial Risk for: harm to self, inability to function and rapid decompen sation
[2022-09-14] MEDS: QUEtiapine Fumarate 100 MG TABLET PO (18:21)
[2022-09-14] MEDS: cloNIDine HCL 0.2 MG TABLET PO (18:21)
[2022-09-14 18:23] VITALS: BP 130/83; PULSE 62
[2022-09-15 06:00] VITALS: BP 128/84; PULSE 66; RESP 16; TEMP 36.6; O2SAT 97
[2022-09-15] MEDS: methADONE HCl 20 MG/2 ML ORAL.CONC 140 MG PO (08:37)
[2022-09-15] MEDS: Propranolol HCL 40 MG TABLET PO ×2 (08:38→17:52)
[2022-09-15] MEDS: Dextroamphetamine/Amphetamine XR 10 MG CAP.ER.24H 20 MG PO (08:38)
[2022-09-15] MEDS: cloNIDine HCL 0.2 MG TABLET PO ×2 (08:38→17:52)
[2022-09-15] MEDS: Thiamine HCL 100 MG TABLET PO (08:38)
[2022-09-15] MEDS: buPROPion HCl XL 300 MG TAB.ER.24H PO (08:38)
[2022-09-15] MEDS: Escitalopram Oxalate 10 MG TABLET PO (08:39)
[2022-09-15] MEDS: Multivitamin TABLET 1 TAB PO (08:39)
[2022-09-15] MEDS: Gabapentin 300 MG CAPSULE 600 MG PO ×3 (08:39→17:52)
[2022-09-15] MEDS: Ferrous Sulfate 324 MG TABLET.DR PO (08:39)
[2022-09-15] MEDS: Promethazine HCL 25 MG TABLET PO ×2 (11:06→17:52)
[2022-09-15] MEDS: hydrOXYzine HCL 25 MG TABLET PO ×2 (11:06→17:53)
--- NOTE | 2022-09-15 16:01 | HO.PSYCHPN ---
Subjective Subjective Date of Service: 09/15/22 Reason For Visit: OD, depression Subjective Notes: Conditional Voluntary Healthcare Proxy: No Guardianship: No Medical Problems Affecting Mental Status: No Interim History: Pt reports he is well, no questions or concerns. Remains in a waiting patters for possible acceptance to programs. Interviews are pending. Medication Compliance: Yes Side effects from medications: No Attending Groups: No Review of Systems Acute medical concerns: No Medical Review of Systems: unchanged Mental Status Exam Mental Status Exam Patient Appearance: Appropriate Patient Orientation: Person, Place, Time and Situation Level of Consciousness: Sedated and Alert Patient Behavior: Talkative, Cooperative and Good Eye Contact Mood Description: Depressed Affect Description: Flat Patient Cognition Impaired: No Ability to Follow Directions: Good Speech Pattern: Spontaneous Speech Memory Description: Episodic Impaired Hallucinations: None Delusions: Not Present Thought Process: Intact and Goal Oriented Thought Content: positive for Intact and positive for Goal Oriented Depressive Symptoms: Loss of Int. in Activity, Feelings of Worthlessness, Hopelessness, Unhappiness, Increased Fatigue, Low Self Esteem, Loss of Energy and Difficulty Concentrating Judgement: Fair Diagnostics Vital Signs (24Hr): Vital Signs - 24 hr 09/14/22 18:23 09/15/22 06:00 Temperature 97.8 F Pulse Rate 62 66 Respiratory Rate 16 Blood Pressure 130/83 128/84 Pulse Oximetry 97 Oxygen Delivery Method Room Air BMI result Body Mass Index 39.3 Labs Results: 09/06/22 08:35 Medications Medications Current Medications Acetaminophen (Acetaminophen 325 Mg Tablet) 650 mg PO Q6H PRN PRN Reason: Headache/Pain Mild Scale (1-3) Last Admin: 09/06/22 20:19 Dose: 650 mg Al Hydroxide/Mg Hydroxide (Magnesium Hydrox/Alum Hydrox 30 Ml Oral.Susp) 30 ml PO Q6H PRN PRN Reason: Heartburn/Nausea Amphetamine/Dextroamphetamine (Dextroamphetamine/Amphetamine Xr 10 Mg Cap.Er.24h) 20 mg PO DAILY [facility] Last Admin: 09/15/22 08:38 Dose: 20 mg Bupropion HCl (Bupropion Hcl Xl 300 Mg Tab.Er.24h) 300 mg PO DAILY [facility] Last Admin: 09/15/22 08:38 Dose: 300 mg Clonidine HCl (Clonidine Hcl 0.2 Mg Tablet) 0.2 mg PO BID [facility]; Protocol Last Admin: 09/15/22 08:38 Dose: 0.2 mg Escitalopram Oxalate (Escitalopram Oxalate 10 Mg Tablet) 10 mg PO DAILY [facility] Last Admin: 09/15/22 08:39 Dose: 10 mg Ferrous Sulfate (Ferrous Sulfate 324 Mg Tablet.Dr) 324 mg PO DAILY [facility] Last Admin: 09/15/22 08:39 Dose: 324 mg Gabapentin (Gabapentin 300 Mg Capsule) 600 mg PO TID [facility] Last Admin: 09/15/22 14:34 Dose: 600 mg Hydroxyzine HCl (Hydroxyzine Hcl 25 Mg Tablet) 25 mg PO Q6H PRN PRN Reason: Anxiety Last Admin: 09/15/22 11:06 Dose: 25 mg Magnesium Hydroxide (Milk Of Magnesia 30 Ml Oral.Susp) 30 ml PO DAILY PRN PRN Reason: Constipation Methadone HCl (Methadone Hcl 20 Mg/2 Ml Oral.Conc) 140 mg PO DAILY [facility] Last Admin: 09/15/22 08:37 Dose: 140 mg Multivitamins/Vitamin C (Multivitamin Tablet) 1 tab PO DAILY [facility] Last Admin: 09/15/22 08:39 Dose: 1 tab Ondansetron HCl (Ondansetron Hcl 4 Mg/2 Ml Vial) 4 mg IVPUSH Q8H PRN PRN Reason: Nausea and Vomiting Promethazine HCl (Promethazine Hcl 25 Mg Tablet) 25 mg PO TID PRN PRN Reason: Nausea And Vomiting Last Admin: 09/15/22 11:06 Dose: 25 mg Propranolol HCl (Propranolol Hcl 40 Mg Tablet) 40 mg PO BID [facility]; Protocol Last Admin: 09/15/22 08:38 Dose: 40 mg Quetiapine Fumarate (Quetiapine Fumarate 100 Mg Tablet) 100 mg PO BEDTIME [facility] Last Admin: 09/14/22 18:21 Dose: 100 mg Thiamine HCl (Thiamine Hcl 100 Mg Tablet) 100 mg PO DAILY [facility] Last Admin: 09/15/22 08:38 Dose: 100 mg Allergies Allergies Allergy/AdvReac Type Severity Reaction Status Date / Time No Known Allergies Allergy Verified 11/28/21 20:05 Assessment & Plan Assessment & Plan (1) MDD (major depressive disorder), recurrent episode, moderate: Status: Acute Code(s): F33.1 - Major depressive disorder, recurrent, moderate (2) Alcohol use disorder, moderate, dependence: Status: Acute Code(s): F10.20 - Alcohol dependence, uncomplicated (3) Cocaine use disorder, moderate, dependence: Status: Acute Code(s): F14.20 - Cocaine dependence, uncomplicated (4) Opioid use disorder, severe, on maintenance therapy: Status: Acute Code(s): F11.20 - Opioid dependence, uncomplicated (5) ADHD: Status: Acute Code(s): F90.9 - Attention-deficit hyperactivity disorder, unspecified type Plan 41 yo male, hx of recurrent major depression, IWONA, ADHD, PTSD, alcohol and cocaine use disorder, opioid use disorder on maintenance therapy s/p Trazodone overdose. Pt struggling with chronic homelessness, unable to find a program for longer team addiction treatment and stable therapist and medication provider. Pt with anemia-?chronic illness and substance abuse. Pt agreeable to re-establish regime, titrate and search for resources for ongoing care. Plan: Complete Phenobarbital taper Wellbutrin XL 300 mg a.m. Adderall XR 10 mg a.m. FeSO4 324 mg daily [facility]VI i tab daily 09/06/22: Continue current plan. 09/07/22: Clonidine 0.1 mg bid to address anxiety, assist with sleep quality. 09/08/22: Continue current plan of care. 09/09: Continue current Regimen and plans 09/10: Continue current regimen and plans 09/12/22 Continue current regime and plan of care. 09/15/22: Continue current regime and plan of care. Reports variable degrees of pain in fingers/hands RF, KAYLA, ESR I spent minutes with the patient and/or on the patient floor today, greater than?50% of which was spent counseling/coordinating care. Patient educated on: medication risk/benefits, therapeutic strategies and medical condition Informed Consent: understands and further education needed Reason for contiued inpatient stay Substantial Risk for: harm to self, inability to function and rapid decompensation
[2022-09-15] MEDS: QUEtiapine Fumarate 100 MG TABLET PO (17:52)
[2022-09-15 17:55] VITALS: BP 134/81; PULSE 59
[2022-09-16] MEDS: Acetaminophen 325 MG TABLET 650 MG PO ×2 (01:59→08:06)
[2022-09-16] MEDS: Gabapentin 300 MG CAPSULE 600 MG PO ×3 (08:05→19:22)
[2022-09-16] MEDS: methADONE HCl 20 MG/2 ML ORAL.CONC 140 MG PO (08:05)
[2022-09-16] MEDS: Multivitamin TABLET 1 TAB PO (08:06)
[2022-09-16] MEDS: Dextroamphetamine/Amphetamine XR 10 MG CAP.ER.24H 20 MG PO (08:06)
[2022-09-16] MEDS: Ferrous Sulfate 324 MG TABLET.DR PO (08:06)
[2022-09-16] MEDS: Propranolol HCL 40 MG TABLET PO ×2 (08:06→19:23)
[2022-09-16] MEDS: Escitalopram Oxalate 10 MG TABLET PO (08:06)
[2022-09-16] MEDS: Thiamine HCL 100 MG TABLET PO (08:06)
[2022-09-16] MEDS: cloNIDine HCL 0.2 MG TABLET PO ×2 (08:06→19:23)
[2022-09-16] MEDS: buPROPion HCl XL 300 MG TAB.ER.24H PO (08:06)
--- NOTE | 2022-09-16 08:16 | PC.NURSE ---
pt refused lab work at 0816 on 09/16/2022.
[2022-09-16 08:20] VITALS: BP 128/74; PULSE 74; RESP 16; TEMP 36.3; O2SAT 98
[2022-09-16] MEDS: Promethazine HCL 25 MG TABLET PO ×2 (11:26→17:56)
[2022-09-16] MEDS: hydrOXYzine HCL 25 MG TABLET PO ×2 (11:26→17:56)
--- NOTE | 2022-09-16 14:07 | P.PNPSI_ITS ---
Subjective Subjective Date of Service: 09/16/22 Reason For Visit: OD, depression Subjective Notes: Section 8 Interim History: Continues to present with ongoing psychosis around the government, local police, radiation, life insurance scams etc.. Reports sleep is okay. Reports she is being treated okay by staff in the hospital. Reports feeling down regarding hos pitalization, but no overt depression. Patient reports upset around medication regimen. Does have some hand tremor. Will start Cogentin for same. Medication Compliance: Yes Side effects from medications: Yes (? eps) Attending Groups: Intermittent Review of Systems Acute medical concerns: No Review of Systems Review of Systems Some hand tremor Mental Status Exam Mental Status Exam Narrative: Pleasant with proposal lead writer. Wearing multiple layers of clothing and carrying a bag with her files . Some mild hand tremor. Verbose. Lots of paranoid delusions. Denies current hallucinations. No SI. Does endorse feeling depressed. No HI or agitation. Insight and judgment limited Diagnostics Vital Signs (24Hr): Vital Signs - 24 hr 09/15/22 17:55 09/16/22 08:20 Temperature 97.4 F Pulse Rate 59 74 Respiratory Rate 16 Blood Pressure 134/81 128/74 Pulse Oximetry 98 Oxygen Delivery Method Room Air BMI result Body Mass Index 39.3 Labs Results: 09/06/22 08:35 Medications Medications Current Medications Acetaminophen (Acetaminophen 325 Mg Tablet) 650 mg PO Q6H PRN PRN Reason: Headache/Pain Mild Scale (1-3) Last Admin: 09/16/22 08:06 Dose: 650 mg Al Hydroxide/Mg Hydroxide (Magnesium Hydrox/Alum Hydrox 30 Ml Oral.Susp) 30 ml PO Q6H PRN PRN Reason: Heartburn/Nausea Amphetamine/Dextroamphetamine (Dextroamphetamine/Amphetamine Xr 10 Mg Cap.Er.24h) 20 mg PO DAILY [facility] Last Admin: 09/16/22 08:06 Dose: 20 mg Bupropion HCl (Bupropion Hcl Xl 300 Mg Tab.Er.24h) 300 mg PO DAILY [facility] Last Admin: 09/16/22 08:06 Dose: 300 mg Clonidine HCl (Clonidine Hcl 0.2 Mg Tablet) 0.2 mg PO BID [facility]; Protocol Last Admin: 09/16/22 08:06 Dose: 0.2 mg Escitalopram Oxalate (Escitalopram Oxalate 10 Mg Tablet) 10 mg PO DAILY [facility] Last Admin: 09/16/22 08:06 Dose: 10 mg Ferrous Sulfate (Ferrous Sulfate 324 Mg Tablet.Dr) 324 mg PO DAILY [facility] Last Admin: 09/16/22 08:06 Dose: 324 mg Gabapentin (Gabapentin 300 Mg Capsule) 600 mg PO TID [facility] Last Admin: 09/16/22 08:05 Dose: 600 mg Hydroxyzine HCl (Hydroxyzine Hcl 25 Mg Tablet) 25 mg PO Q6H PRN PRN Reason: Anxiety Last Admin: 09/16/22 11:26 Dose: 25 mg Magnesium Hydroxide (Milk Of Magnesia 30 Ml Oral.Susp) 30 ml PO DAILY PRN PRN Reason: Constipation Methadone HCl (Methadone Hcl 20 Mg/2 Ml Oral.Conc) 140 mg PO DAILY [facility] Last Admin: 09/16/22 08:05 Dose: 140 mg Multivitamins/Vitamin C (Multivitamin Tablet) 1 tab PO DAILY [facility] Last Admin: 09/16/22 08:06 Dose: 1 tab Ondansetron HCl (Ondansetron Hcl 4 Mg/2 Ml Vial) 4 mg IVPUSH Q8H PRN PRN Reason: Nausea and Vomiting Promethazine HCl (Promethazine Hcl 25 Mg Tablet) 25 mg PO TID PRN PRN Reason: Nausea And Vomiting Last Admin: 09/16/22 11:26 Dose: 25 mg Propranolol HCl (Propranolol Hcl 40 Mg Tablet) 40 mg PO BID [facility]; Protocol Last Admin: 09/16/22 08:06 Dose: 40 mg Quetiapine Fumarate (Quetiapine Fumarate 100 Mg Tablet) 100 mg PO BEDTIME [facility] Last Admin: 09/15/22 17:52 Dose: 100 mg Thiamine HCl (Thiamine Hcl 100 Mg Tablet) 100 mg PO DAILY [facility] Last Admin: 09/16/22 08:06 Dose: 100 mg Allergies Allergies Allergy/AdvReac Type Severity Reaction Status Date / Time No Known Allergies Allergy Verified 11/28/21 20:05 Assessment & Plan Assessment & Plan (1) MDD (major depressive disorder), recurrent episode, moderate: Status: Acute Code(s): F33.1 - Major depressive disorder, recurrent, moderate (2) Alcohol use disorder, moderate, dependence: Status: Acute Code(s): F10.20 - Alcohol dependence, uncomplicated (3) Cocaine use disorder, moderate, dependence: Status: Acute Code(s): F14.20 - Cocaine dependence, uncomplicated (4) Opioid use disorder, severe, on maintenance therapy: Status: Acute Code(s): F11.20 - Opioid dependence, uncomplicated (5) ADHD: Status: Acute Code(s): F90.9 - Attention-deficit hyperactivity disorder, unspecified type Plan 41 yo male, hx of recurrent major depression, IWONA, ADHD, PTSD, alcohol and cocaine use disorder, opioid use disorder on maintenance therapy s/p Trazodone overdose. Pt struggling with chronic homelessness, unable to find a program for longer team addiction treatment and stable therapist and medication provider. Pt with anemia-?chronic illness and substance abuse. Pt agreeable to re-establish regime, titrate and search for resources for ongoing care. Plan: Complete Phenobarbital taper Wellbutrin XL 300 mg a.m. Adderall XR 10 mg a.m. FeSO4 324 mg daily [facility]VI i tab daily 09/06/22: Continue current plan. 09/07/22: Clonidine 0.1 mg bid to address anxiety, assist with sleep quality. 09/08/22: Continue current plan of care. 09/09: Continue current Regimen and plans 09/10: Continue current regimen and plans 09/12/22 Continue current regime and plan of care. 09/15/22: Continue current regime and plan of care. Reports variable degrees of pain in fingers/hands RF, KAYLA, ESR 09/16/2022: Will schedule Cogentin given mild hand tremor I spent minutes with the patient and/or on the patient floor today, greater than?50% of which was spent counseling/coordinating care. Reason for contiued inpatient stay Substantial Risk for: inability to function
--- NOTE | 2022-09-16 14:18 | P.PNPSI_ITS ---
Subjective Subjective Date of Service: 09/16/22 Reason For Visit: OD, depression Subjective Notes: Conditional Voluntary Medical Problems Affecting Mental Status: No Interim History: Chart reviewed. Discussed with Nursing. Overall reports that he feels really good. Denies feeling actively suicidal. Reports suicidal thoughts have decrea sed in intensity and frequency. Did not particularly want to engage in interview and psych keno writer/runner for his interest. As per nursing has declined to meet with clinicians. Hopeful for [facility] interview Medication Compliance: Yes Side effects from medications: No Attending Groups: Intermittent Review of Systems Acute medical concerns: No Review of Systems Review of Systems nil noted Mental Status Exam Mental Status Exam Narrative: Seen in group room. Was coloring in. Pleasant with keno writer/runner, however did not want to particularly engaged. Denied current SI. No evidence of psychosis agitation or HI. Insight and judgment does appear to be limited given level of interactions Diagnostics Vital Signs (24Hr): Vital Signs - 24 hr 09/15/22 17:55 09/16/22 08:20 Temperature 97.4 F Pulse Rate 59 74 Respiratory Rate 16 Blood Pressure 134/81 128/74 Pulse Oximetry 98 Oxygen Delivery Method Room Air BMI result Body Mass Index 39.3 Labs Results: 09/06/22 08:35 Medications Medications Current Medications Acetaminophen (Acetaminophen 325 Mg Tablet) 650 mg PO Q6H PRN PRN Reason: Headache/Pain Mild Scale (1-3) Last Admin: 09/16/22 08:06 Dose: 650 mg Al Hydroxide/Mg Hydroxide (Magnesium Hydrox/Alum Hydrox 30 Ml Oral.Susp) 30 ml PO Q6H PRN PRN Reason: Heartburn/Nausea Amphetamine/Dextroamphetamine (Dextroamphetamine/Amphetamine Xr 10 Mg Cap.Er.24h) 20 mg PO DAILY [facility] Last Admin: 09/16/22 08:06 Dose: 20 mg Bupropion HCl (Bupropion Hcl Xl 300 Mg Tab.Er.24h) 300 mg PO DAILY [facility] Last Admin: 09/16/22 08:06 Dose: 300 mg Clonidine HCl (Clonidine Hcl 0.2 Mg Tablet) 0.2 mg PO BID [facility]; Protocol Last Admin: 09/16/22 08:06 Dose: 0.2 mg Escitalopram Oxalate (Escitalopram Oxalate 10 Mg Tablet) 10 mg PO DAILY [facility] Last Admin: 09/16/22 08:06 Dose: 10 mg Ferrous Sulfate (Ferrous Sulfate 324 Mg Tablet.Dr) 324 mg PO DAILY [facility] Last Admin: 09/16/22 08:06 Dose: 324 mg Gabapentin (Gabapentin 300 Mg Capsule) 600 mg PO TID [facility] Last Admin: 09/16/22 08:05 Dose: 600 mg Hydroxyzine HCl (Hydroxyzine Hcl 25 Mg Tablet) 25 mg PO Q6H PRN PRN Reason: Anxiety Last Admin: 09/16/22 11:26 Dose: 25 mg Magnesium Hydroxide (Milk Of Magnesia 30 Ml Oral.Susp) 30 ml PO DAILY PRN PRN Reason: Constipation Methadone HCl (Methadone Hcl 20 Mg/2 Ml Oral.Conc) 140 mg PO DAILY [facility] Last Admin: 09/16/22 08:05 Dose: 140 mg Multivitamins/Vitamin C (Multivitamin Tablet) 1 tab PO DAILY [facility] Last Admin: 09/16/22 08:06 Dose: 1 tab Ondansetron HCl (Ondansetron Hcl 4 Mg/2 Ml Vial) 4 mg IVPUSH Q8H PRN PRN Reason: Nausea and Vomiting Promethazine HCl (Promethazine Hcl 25 Mg Tablet) 25 mg PO TID PRN PRN Reason: Nausea And Vomiting Last Admin: 09/16/22 11:26 Dose: 25 mg Propranolol HCl (Propranolol Hcl 40 Mg Tablet) 40 mg PO BID [facility]; Protocol Last Admin: 09/16/22 08:06 Dose: 40 mg Quetiapine Fumarate (Quetiapine Fumarate 100 Mg Tablet) 100 mg PO BEDTIME [facility] Last Admin: 09/15/22 17:52 Dose: 100 mg Thiamine HCl (Thiamine Hcl 100 Mg Tablet) 100 mg PO DAILY [facility] Last Admin: 09/16/22 08:06 Dose: 100 mg Allergies Allergies Allergy/AdvReac Type Severity Reaction Status Date / Time No Known Allergies Allergy Verified 11/28/21 20:05 Assessment & Plan Assessment & Plan (1) MDD (major depressive disorder), recurrent episode, moderate: Status: Acute Code(s): F33.1 - Major depressive disorder, recurrent, moderate (2) Alcohol use disorder, moderate, dependence: Status: Acute Code(s): F10.20 - Alcohol dependence, uncomplicated (3) Cocaine use disorder, moderate, dependence: Status: Acute Code(s): F14.20 - Cocaine dependence, uncomplicated (4) Opioid use disorder, severe, on maintenance therapy: Status: Acute Code(s): F11.20 - Opioid dependence, uncomplicated (5) ADHD: Status: Acute Code(s): F90.9 - Attention-deficit hyperactivity disorder, unspecified type Plan 41 yo male, hx of recurrent major depression, IWONA, ADHD, PTSD, alcohol and cocaine use disorder, opioid use disorder on maintenance therapy s/p Trazodone overdose. Pt struggling with chronic homelessness, unable to find a program for longer team addiction treatment and stable therapist and medication provider. Pt with anemia-?chronic illness and substance abuse. Pt agreeable to re-establish regime, titrate and search for resources for ongoing care. Plan: Complete Phenobarbital taper Wellbutrin XL 300 mg a.m. Adderall XR 10 mg a.m. FeSO4 324 mg daily [facility]VI i tab daily 09/06/22: Continue current plan. 09/07/22: Clonidine 0.1 mg bid to address anxiety, assist with sleep quality. 09/08/22: Continue current plan of care. 09/09: Continue current Regimen and plans 09/10: Continue current regimen and plans 09/12/22 Continue current regime and plan of care. 09/15/22: Continue current regime and plan of care. Reports variable degrees of pain in fingers/hands RF, KAYLA, ESR 09/16/2022: No changes to current treatment plan I spent minutes with the patient and/or on the patient floor today, greater than?50% of which was spent counseling/coordinating care. Reason for contiued inpatient stay Substantial Risk for: harm to self
[2022-09-16 16:16] LABS: Rheumatoid Factor 17.3 IU/mL (<15.0)
[2022-09-16 16:38] LABS: Erythrocyte Sedimentation Rate 18 MM/HR (0-15)
[2022-09-16] MEDS: QUEtiapine Fumarate 100 MG TABLET PO (19:22)
[2022-09-17 07:30] VITALS: BP 131/77; PULSE 66; RESP 16; TEMP 36.5; O2SAT 98
[2022-09-17] MEDS: Capsaicin 0.025% Cream 60 GM TUBE 1 APPL TOPICAL (08:18)
[2022-09-17] MEDS: methADONE HCl 20 MG/2 ML ORAL.CONC 140 MG PO (08:20)
[2022-09-17] MEDS: Gabapentin 300 MG CAPSULE 600 MG PO ×3 (08:21→22:32)
[2022-09-17] MEDS: Thiamine HCL 100 MG TABLET PO (08:21)
[2022-09-17] MEDS: Multivitamin TABLET 1 TAB PO (08:21)
[2022-09-17] MEDS: cloNIDine HCL 0.2 MG TABLET PO ×2 (08:21→22:32)
[2022-09-17] MEDS: Escitalopram Oxalate 10 MG TABLET PO (08:22)
[2022-09-17] MEDS: Propranolol HCL 40 MG TABLET PO ×2 (08:22→22:32)
[2022-09-17] MEDS: Dextroamphetamine/Amphetamine XR 10 MG CAP.ER.24H 20 MG PO (08:22)
[2022-09-17] MEDS: Ferrous Sulfate 324 MG TABLET.DR PO (08:22)
[2022-09-17] MEDS: buPROPion HCl XL 300 MG TAB.ER.24H PO (08:22)
--- NOTE | 2022-09-17 12:07 | P.PNPSI_ITS ---
Subjective Subjective Date of Service: 09/17/22 Reason For Visit: OD, depression Interim History: Continues to report overall feeling good. Is reporting left arm with slightly more painful than normal- this is chronic in nature. Would like a lidocaine patch. Denies feeling actively suicidal. Sleep okay. Energy okay. Otherwise, remained hopeful for [facility] interview Medication Compliance: Yes Side effects from medications: No Attending Groups: Yes Review of Systems Acute medical concerns: No Review of Systems Review of Systems Left arm discomfort Mental Status Exam Mental Status Exam Narrative: Seen in group room. Was coloring in. Pleasant with keno writer, however did not want to particularly engaged. Denied current SI. No evidence of psychosis agitation or HI. Insight and judgment does appear to be limited given level of interactions Diagnostics Vital Signs (24Hr): Vital Signs - 24 hr 09/17/22 07:30 Temperature 97.7 F Pulse Rate 66 Respiratory Rate 16 Blood Pressure 131/77 Pulse Oximetry 98 Oxygen Delivery Method Room Air BMI result Body Mass Index 39.3 Labs Results: 09/06/22 08:35 Labs: Laboratory Results - last 48 hr 09/16/22 09/16/22 15:30 15:30 ESR 18 H Rheumatoid Factor 17.3 H Medications Medications Current Medications Acetaminophen (Acetaminophen 325 Mg Tablet) 650 mg PO Q6H PRN PRN Reason: Headache/Pain Mild Scale (1-3) Last Admin: 09/16/22 08:06 Dose: 650 mg Al Hydroxide/Mg Hydroxide (Magnesium Hydrox/Alum Hydrox 30 Ml Oral.Susp) 30 ml PO Q6H PRN PRN Reason: Heartburn/Nausea Amphetamine/Dextroamphetamine (Dextroamphetamine/Amphetamine Xr 10 Mg Cap.Er.24h) 20 mg PO DAILY [facility] Last Admin: 09/17/22 08:22 Dose: 20 mg Bupropion HCl (Bupropion Hcl Xl 300 Mg Tab.Er.24h) 300 mg PO DAILY [facility] Last Admin: 09/17/22 08:22 Dose: 300 mg Capsaicin (Capsaicin 0.025% Cream 60 Gm Tube) 1 appl TOPICAL QID PRN; Protocol PRN Reason: muscle pain Last Admin: 09/17/22 08:18 Dose: 1 appl Clonidine HCl (Clonidine Hcl 0.2 Mg Tablet) 0.2 mg PO BID [facility]; Protocol Last Admin: 09/17/22 08:21 Dose: 0.2 mg Escitalopram Oxalate (Escitalopram Oxalate 10 Mg Tablet) 10 mg PO DAILY [facility] Last Admin: 09/17/22 08:22 Dose: 10 mg Ferrous Sulfate (Ferrous Sulfate 324 Mg Tablet.Dr) 324 mg PO DAILY [facility] Last Admin: 09/17/22 08:22 Dose: 324 mg Gabapentin (Gabapentin 300 Mg Capsule) 600 mg PO TID [facility] Last Admin: 09/17/22 08:21 Dose: 600 mg Hydroxyzine HCl (Hydroxyzine Hcl 25 Mg Tablet) 25 mg PO Q6H PRN PRN Reason: Anxiety Last Admin: 09/16/22 17:56 Dose: 25 mg Lidocaine (Lidocaine 4 % Patch Adh..Patch) 1 patch TRANSDERMA DAILY [facility]; Protocol Magnesium Hydroxide (Milk Of Magnesia 30 Ml Oral.Susp) 30 ml PO DAILY PRN PRN Reason: Constipation Methadone HCl (Methadone Hcl 20 Mg/2 Ml Oral.Conc) 140 mg PO DAILY [facility] Last Admin: 09/17/22 08:20 Dose: 140 mg Multivitamins/Vitamin C (Multivitamin Tablet) 1 tab PO DAILY [facility] Last Admin: 09/17/22 08:21 Dose: 1 tab Ondansetron HCl (Ondansetron Hcl 4 Mg/2 Ml Vial) 4 mg IVPUSH Q8H PRN PRN Reason: Nausea and Vomiting Promethazine HCl (Promethazine Hcl 25 Mg Tablet) 25 mg PO TID PRN PRN Reason: Nausea And Vomiting Last Admin: 09/16/22 17:56 Dose: 25 mg Propranolol HCl (Propranolol Hcl 40 Mg Tablet) 40 mg PO BID [facility]; Protocol Last Admin: 09/17/22 08:22 Dose: 40 mg Quetiapine Fumarate (Quetiapine Fumarate 100 Mg Tablet) 100 mg PO BEDTIME [facility] Last Admin: 09/16/22 19:22 Dose: 100 mg Thiamine HCl (Thiamine Hcl 100 Mg Tablet) 100 mg PO DAILY [facility] Last Admin: 09/17/22 08:21 Dose: 100 mg Allergies Allergies Allergy/AdvReac Type Severity Reaction Status Date / Time No Known Allergies Allergy Verified 11/28/21 20:05 Assessment & Plan Assessment & Plan (1) MDD (major depressive disorder), recurrent episode, moderate: Status: Acute Code(s): F33.1 - Major depressive disorder, recurrent, moderate (2) Alcohol use disorder, moderate, dependence: Status: Acute Code(s): F10.20 - Alcohol dependence, uncomplicated (3) Cocaine use disorder, moderate, dependence: Status: Acute Code(s): F14.20 - Cocaine dependence, uncomplicated (4) Opioid use disorder, severe, on maintenance therapy: Status: Acute Code(s): F11.20 - Opioid dependence, uncomplicated (5) ADHD: Status: Acute Code(s): F90.9 - Attention-deficit hyperactivity disorder, unspecified type Plan 41 yo male, hx of recurrent major depression, IWONA, ADHD, PTSD, alcohol and ozzie rina use disorder, opioid use disorder on maintenance therapy s/p Trazodone overdose. Pt struggling with chronic homelessness, unable to find a program for longer team addiction treatment and stable therapist and medication provider. Pt with anemia-?chronic illness and substance abuse. Pt agreeable to re-establish regime, titrate and search for resources for ongoing care. Plan: Complete Phenobarbital taper Wellbutrin XL 300 mg a.m. Adderall XR 10 mg a.m. FeSO4 324 mg daily [facility] i tab daily 09/06/22: Continue current plan. 09/07/22: Clonidine 0.1 mg bid to address anxiety, assist with sleep quality. 09/08/22: Continue current plan of care. 09/09: Continue current Regimen and plans 09/10: Continue current regimen and plans 09/12/22 Continue current regime and plan of care. 09/15/22: Continue current regime and plan of care. Reports variable degrees of pain in fingers/hands RF, KAYLA, ESR 09/16/2022: No changes to current treatment plan 09/17/2022: No significant changes I spent minutes with the patient and/or on the patient floor today, greater than?50% of which was spent counseling/coordinating care. Reason for contiued inpatient stay Substantial Risk for: harm to self
[2022-09-17] MEDS: Acetaminophen 325 MG TABLET 650 MG PO ×2 (12:17→22:34)
[2022-09-17] MEDS: Lidocaine 4 % Patch ADH..PATCH 1 PATCH TRANSDERMA (12:17)
[2022-09-17] MEDS: Promethazine HCL 25 MG TABLET PO (16:31)
[2022-09-17] MEDS: hydrOXYzine HCL 25 MG TABLET PO (16:31)
[2022-09-17 17:10] VITALS: RESP 16
[2022-09-17] MEDS: QUEtiapine Fumarate 100 MG TABLET PO (22:32)
[2022-09-18] MEDS: methADONE HCl 20 MG/2 ML ORAL.CONC 140 MG PO (08:29)
[2022-09-18] MEDS: Dextroamphetamine/Amphetamine XR 10 MG CAP.ER.24H 20 MG PO (08:29)
[2022-09-18 08:30] VITALS: BP 138/85; PULSE 62; RESP 18; TEMP 36; O2SAT 100
[2022-09-18] MEDS: buPROPion HCl XL 300 MG TAB.ER.24H PO (08:30)
[2022-09-18] MEDS: Ferrous Sulfate 324 MG TABLET.DR PO (08:30)
[2022-09-18] MEDS: Escitalopram Oxalate 10 MG TABLET PO (08:30)
[2022-09-18] MEDS: cloNIDine HCL 0.2 MG TABLET PO ×2 (08:30→19:28)
[2022-09-18] MEDS: Thiamine HCL 100 MG TABLET PO (08:30)
[2022-09-18] MEDS: Propranolol HCL 40 MG TABLET PO ×2 (08:30→19:29)
[2022-09-18] MEDS: Gabapentin 300 MG CAPSULE 600 MG PO ×3 (08:30→19:28)
[2022-09-18] MEDS: Multivitamin TABLET 1 TAB PO (09:04)
[2022-09-18] MEDS: Acetaminophen 325 MG TABLET 650 MG PO (10:39)
[2022-09-18] MEDS: hydrOXYzine HCL 25 MG TABLET PO ×2 (12:16→19:33)
[2022-09-18] MEDS: Promethazine HCL 25 MG TABLET PO ×2 (12:16→19:34)
[2022-09-18] MEDS: Lidocaine 4 % Patch ADH..PATCH 2 PATCH TRANSDERMA (12:16)
[2022-09-18] MEDS: Capsaicin 0.025% Cream 60 GM TUBE 1 APPL TOPICAL (12:19)
--- NOTE | 2022-09-18 16:48 | HO.PSYCHPN ---
Subjective Subjective Date of Service: 09/18/22 Reason For Visit: OD, depression Subjective Notes: Conditional Voluntary Healthcare Proxy: No Guardianship: No Medical Problems Affecting Mental Status: No Interim History: I feel hopeful about the [facility] interview tomorrow. Reports regime to be effective, does report arm pain-hx of injury after injecting substances with surgery 2020-nerve damage to arm, fingers-Lidocaine Patch ordered bid to offer assist. Today, reflective on his overdose and is realizing that I almost . Discussed his daughter and wanting to be there for her in the future. I don't want her to have to say, my dad OD'd and did not want to be with me. Medication Compliance: Yes Side effects from medications: No Attending Groups: Intermittent Review of Systems Acute medical concerns: No Medical Review of Systems: unchanged Mental Status Exam Mental Status Exam Patient Appearance: Appropriate Patient Orientation: Person, Place, Time and Situation Level of Consciousness: Alert Patient Behavior: Talkative and Good Eye Contact Mood Description: Appropriate Affect Description: Appropriate Patient Cognition Impaired: No Ability to Follow Directions: Good Speech Pattern: Spontaneous Speech Hallucinations: None Delusions: Not Present Thought Process: Rumination Thought Content: positive for Perseveration Depressive Symptoms: Feelings of Guilt and Low Self Esteem Judgement: Good Diagnostics Vital Signs (24Hr): Vital Signs - 24 hr 09/17/22 17:10 09/18/22 08:30 Temperature 96.8 F Pulse Rate 62 Respiratory Rate 16 18 Blood Pressure 138/85 Pulse Oximetry 100 BMI result Body Mass Index 39.3 Labs Results: 09/06/22 08:35 Medications Medications Current Medications Acetaminophen (Acetaminophen 325 Mg Tablet) 650 mg PO Q6H PRN PRN Reason: Headache/Pain Mild Scale (1-3) Last Admin: 09/18/22 10:39 Dose: 650 mg Al Hydroxide/Mg Hydroxide (Magnesium Hydrox/Alum Hydrox 30 Ml Oral.Susp) 30 ml PO Q6H PRN PRN Reason: Heartburn/Nausea Amphetamine/Dextroamphetamine (Dextroamphetamine/Amphetamine Xr 10 Mg Cap.Er.24h) 20 mg PO DAILY [facility] Last Admin: 09/18/22 08:29 Dose: 20 mg Bupropion HCl (Bupropion Hcl Xl 300 Mg Tab.Er.24h) 300 mg PO DAILY [facility] Last Admin: 09/18/22 08:30 Dose: 300 mg Capsaicin (Capsaicin 0.025% Cream 60 Gm Tube) 1 appl TOPICAL QID PRN; Protocol PRN Reason: muscle pain Last Admin: 09/18/22 12:19 Dose: 1 appl Clonidine HCl (Clonidine Hcl 0.2 Mg Tablet) 0.2 mg PO BID [facility]; Protocol Last Admin: 09/18/22 08:30 Dose: 0.2 mg Escitalopram Oxalate (Escitalopram Oxalate 10 Mg Tablet) 10 mg PO DAILY [facility] Last Admin: 09/18/22 08:30 Dose: 10 mg Ferrous Sulfate (Ferrous Sulfate 324 Mg Tablet.Dr) 324 mg PO DAILY [facility] Last Admin: 09/18/22 08:30 Dose: 324 mg Gabapentin (Gabapentin 300 Mg Capsule) 600 mg PO TID [facility] Last Admin: 09/18/22 14:30 Dose: 600 mg Hydroxyzine HCl (Hydroxyzine Hcl 25 Mg Tablet) 25 mg PO Q6H PRN PRN Reason: Anxiety Last Admin: 09/18/22 12:16 Dose: 25 mg Lidocaine (Lidocaine 4 % Patch Adh..Patch) 2 patch TRANSDERMA DAILY [facility]; Protocol Last Admin: 09/18/22 12:16 Dose: 1 patch Magnesium Hydroxide (Milk Of Magnesia 30 Ml Oral.Susp) 30 ml PO DAILY PRN PRN Reason: Constipation Methadone HCl (Methadone Hcl 20 Mg/2 Ml Oral.Conc) 140 mg PO DAILY [facility] Last Admin: 09/18/22 08:29 Dose: 140 mg Multivitamins/Vitamin C (Multivitamin Tablet) 1 tab PO DAILY [facility] Last Admin: 09/18/22 09:04 Dose: 1 tab Ondansetron HCl (Ondansetron Hcl 4 Mg/2 Ml Vial) 4 mg IVPUSH Q8H PRN PRN Reason: Nausea and Vomiting Promethazine HCl (Promethazine Hcl 25 Mg Tablet) 25 mg PO TID PRN PRN Reason: Nausea And Vomiting Last Admin: 09/18/22 12:16 Dose: 25 mg Propranolol HCl (Propranolol Hcl 40 Mg Tablet) 40 mg PO BID [facility]; Protocol Last Admin: 09/18/22 08:30 Dose: 40 mg Quetiapine Fumarate (Quetiapine Fumarate 100 Mg Tablet) 100 mg PO BEDTIME [facility] Last Admin: 09/17/22 22:32 Dose: 100 mg Thiamine HCl (Thiamine Hcl 100 Mg Tablet) 100 mg PO DAILY [facility] Last Admin: 09/18/22 08:30 Dose: 100 mg Allergies Allergies Allergy/AdvReac Type Severity Reaction Status Date / Time No Known Allergies Allergy Verified 11/28/21 20:05 Assessment & Plan Assessment & Plan (1) MDD (major depressive disorder), recurrent episode, moderate: Status: Acute Code(s): F33.1 - Major depressive disorder, recurrent, moderate (2) Alcohol use disorder, moderate, dependence: Status: Acute Code(s): F10.20 - Alcohol dependence, uncomplicated (3) Cocaine use disorder, moderate, dependence: Status: Acute Code(s): F14.20 - Cocaine dependence, uncomplicated (4) Opioid use disorder, severe, on maintenance therapy: Status: Acute Code(s): F11.20 - Opioid dependence, uncomplicated (5) ADHD: Status: Acute Code(s): F90.9 - Attention-deficit hyperactivity disorder, unspecified type Plan 41 yo male, hx of recurrent major depression, IWONA, ADHD, PTSD, alcohol and cocaine use disorder, opioid use disorder on maintenance therapy s/p Trazodone overdose. Pt struggling with chronic homelessness, unable to find a program for longer team addiction treatment and stable therapist and medication provider. Pt with anemia-?chronic illness and substance abuse. Pt agreeable to re-establish regime, titrate and search for resources for ongoing care. Plan: Complete Phenobarbital taper Wellbutrin XL 300 mg a.m. Adderall XR 10 mg a.m. FeSO4 324 mg daily MVI i tab daily 09/06/22: Continue current plan. 09/07/22: Clonidine 0.1 mg bid to address anxiety, assist with sleep quality. 09/08/22: Continue current plan of care. 09/09: Continue current Regimen and plans 09/10: Continue current regimen and plans 09/12/22 Continue current regime and plan of care. 09/15/22: Continue current regime and plan of care. Reports variable degrees of pain in fingers/hands RF, KAYLA, ESR 09/16/2022: No changes to current treatment plan 09/17/2022: No significant changes 09/18/22: Increase Lidocaine patch to BID I spent minutes with the patient and/or on the patient floor today, greater than?50% of which was spent counseling/coordinating care. Patient educated on: therapeutic strategies and medical condition Informed Consent: understands and further education needed Reason for contiued inpatient stay Substantial Risk for: harm to self and rapid decompensation
[2022-09-18 18:00] VITALS: BP 131/76; PULSE 75; RESP 16; TEMP 36.3; O2SAT 98
[2022-09-18] MEDS: QUEtiapine Fumarate 100 MG TABLET PO (19:28)
[2022-09-19] MEDS: Acetaminophen 325 MG TABLET 650 MG PO ×2 (02:52→13:27)
[2022-09-19] MEDS: Capsaicin 0.025% Cream 60 GM TUBE 1 APPL TOPICAL (02:54)
[2022-09-19 06:00] VITALS: BP 121/79; PULSE 60; RESP 18; TEMP 36.7; O2SAT 98
[2022-09-19] MEDS: methADONE HCl 20 MG/2 ML ORAL.CONC 140 MG PO (08:38)
[2022-09-19] MEDS: Multivitamin TABLET 1 TAB PO (08:39)
[2022-09-19] MEDS: cloNIDine HCL 0.2 MG TABLET PO ×2 (08:39→18:43)
[2022-09-19] MEDS: Thiamine HCL 100 MG TABLET PO (08:39)
[2022-09-19] MEDS: Gabapentin 300 MG CAPSULE 600 MG PO ×3 (08:39→18:43)
[2022-09-19] MEDS: buPROPion HCl XL 300 MG TAB.ER.24H PO (08:39)
[2022-09-19] MEDS: Ferrous Sulfate 324 MG TABLET.DR PO (08:39)
[2022-09-19] MEDS: Dextroamphetamine/Amphetamine XR 10 MG CAP.ER.24H 20 MG PO (08:39)
[2022-09-19] MEDS: Escitalopram Oxalate 10 MG TABLET PO (08:39)
[2022-09-19] MEDS: Propranolol HCL 40 MG TABLET PO ×2 (08:39→18:43)
[2022-09-19] MEDS: Lidocaine 4 % Patch ADH..PATCH 2 PATCH TRANSDERMA (08:41)
--- NOTE | 2022-09-19 11:25 | PM.EVENT ---
Event Note Date of Service: 09/19/22 Event Note: Pt with chronic pain of left shoulder, ring finger, middle, and index fingers with history of fracture as a childhood and history of abscess in 2020 following crystal meth injection. There is no acute injury or change. He is hemodynamically stable. He is taking methadone 140mg, gabapentin 800mg TID, and using lidocaine patches. Beyond motrin and tylenol there are no additional recommendations. The patient's chronic pain will be very difficult to manage due to the high doses of methadone and gabapentin he is already taking and will likely benefit from outpt pain management referral. Please contact prn for any further questions.
--- NOTE | 2022-09-19 12:33 | P.PNPSI_ITS ---
Subjective Subjective Date of Service: 09/19/22 Reason For Visit: OD, depression Subjective Notes: Conditional Voluntary Healthcare Proxy: No Guardianship: No Medical Problems Affecting Mental Status: No Interim History: Pt reports L shoulder and L index, middle, ring finger pain. Reports hx of abscess from injection of crystal meth in 2020 with resulting surgery, also fx of L arm in childhood. Reviewed with hospitalist team who will not offer any in pt intervention-they suggest OP follow up for pain mgt. Pt using methadone, gabapentin, lidocaine. Medication Compliance: Yes Side effects from medications: No Attending Groups: Intermittent Review of Systems Acute medical concerns: No Medical Review of Systems: unchanged Mental Status Exam Mental Status Exam Patient Appearance: Appropriate Patient Orientation: Person, Place, Time and Situation Level of Consciousness: Alert Patient Behavior: Talkative and Good Eye Contact Mood Description: Appropriate Affect Description: Appropriate Patient Cognition Impaired: No Ability to Follow Directions: Good Speech Pattern: Spontaneous Speech Hallucinations: None Delusions: Not Present Thought Process: Rumination Thought Content: positive for Perseveration Depressive Symptoms: Feelings of Guilt and Low Self Esteem Judgement: Good Diagnostics Vital Signs (24Hr): Vital Signs - 24 hr 09/18/22 18:00 09/19/22 06:00 Temperature 97.4 F 98.1 F Pulse Rate 75 60 Respiratory Rate 16 18 Blood Pressure 131/76 121/79 Pulse Oximetry 98 98 Oxygen Delivery Method Room Air Room Air BMI result Body Mass Index 39.3 Labs Results: 09/06/22 08:35 Medications Medications Current Medications Acetaminophen (Acetaminophen 325 Mg Tablet) 650 mg PO Q6H PRN PRN Reason: Headache/Pain Mild Scale (1-3) Last Admin: 09/19/22 02:52 Dose: 650 mg Al Hydroxide/Mg Hydroxide (Magnesium Hydrox/Alum Hydrox 30 Ml Oral.Susp) 30 ml PO Q6H PRN PRN Reason: Heartburn/Nausea Amphetamine/Dextroamphetamine (Dextroamphetamine/Amphetamine Xr 10 Mg Cap.Er.24h) 20 mg PO DAILY [facility] Last Admin: 09/19/22 08:39 Dose: 20 mg Bupropion HCl (Bupropion Hcl Xl 300 Mg Tab.Er.24h) 300 mg PO DAILY [facility] Last Admin: 09/19/22 08:39 Dose: 300 mg Capsaicin (Capsaicin 0.025% Cream 60 Gm Tube) 1 appl TOPICAL QID PRN; Protocol PRN Reason: muscle pain Last Admin: 09/19/22 02:54 Dose: 1 appl Clonidine HCl (Clonidine Hcl 0.2 Mg Tablet) 0.2 mg PO BID [facility]; Protocol Last Admin: 09/19/22 08:39 Dose: 0.2 mg Escitalopram Oxalate (Escitalopram Oxalate 10 Mg Tablet) 10 mg PO DAILY [facility] Last Admin: 09/19/22 08:39 Dose: 10 mg Ferrous Sulfate (Ferrous Sulfate 324 Mg Tablet.Dr) 324 mg PO DAILY [facility] Last Admin: 09/19/22 08:39 Dose: 324 mg Gabapentin (Gabapentin 300 Mg Capsule) 600 mg PO TID [facility] Last Admin: 09/19/22 08:39 Dose: 600 mg Hydroxyzine HCl (Hydroxyzine Hcl 25 Mg Tablet) 25 mg PO Q6H PRN PRN Reason: Anxiety Last Admin: 09/18/22 19:33 Dose: 25 mg Lidocaine (Lidocaine 4 % Patch Adh..Patch) 1 patch TRANSDERMA BID [facility]; Protocol Magnesium Hydroxide (Milk Of Magnesia 30 Ml Oral.Susp) 30 ml PO DAILY PRN PRN Reason: Constipation Methadone HCl (Methadone Hcl 20 Mg/2 Ml Oral.Conc) 140 mg PO DAILY [facility] Last Admin: 09/19/22 08:38 Dose: 140 mg Multivitamins/Vitamin C (Multivitamin Tablet) 1 tab PO DAILY [facility] Last Admin: 09/19/22 08:39 Dose: 1 tab Ondansetron HCl (Ondansetron Hcl 4 Mg/2 Ml Vial) 4 mg IVPUSH Q8H PRN PRN Reason: Nausea and Vomiting Promethazine HCl (Promethazine Hcl 25 Mg Tablet) 25 mg PO TID PRN PRN Reason: Nausea And Vomiting Last Admin: 09/18/22 19:34 Dose: 25 mg Propranolol HCl (Propranolol Hcl 40 Mg Tablet) 40 mg PO BID [facility]; Protocol Last Admin: 09/19/22 08:39 Dose: 40 mg Quetiapine Fumarate (Quetiapine Fumarate 100 Mg Tablet) 100 mg PO BEDTIME [facility] Last Admin: 09/18/22 19:28 Dose: 100 mg Thiamine HCl (Thiamine Hcl 100 Mg Tablet) 100 mg PO DAILY [facility] Last Admin: 09/19/22 08:39 Dose: 100 mg Allergies Allergies Allergy/AdvReac Type Severity Reaction Status Date / Time No Known Allergies Allergy Verified 11/28/21 20:05 Assessment & Plan Assessment & Plan (1) MDD (major depressive disorder), recurrent episode, moderate: Status: Acute Code(s): F33.1 - Major depressive disorder, recurrent, moderate (2) Alcohol use disorder, moderate, dependence: Status: Acute Code(s): F10.20 - Alcohol dependence, uncomplicated (3) Cocaine use disorder, moderate, dependence: Status: Acute Code(s): F14.20 - Cocaine dependence, uncomplicated (4) Opioid use disorder, severe, on maintenance therapy: Status: Acute Code(s): F11.20 - Opioid dependence, uncomplicated (5) ADHD: Status: Acute Code(s): F90.9 - Attention-deficit hyperactivity disorder, unspecified type Plan 41 yo male, hx of recurrent major depression, IWONA, ADHD, PTSD, alcohol and cocaine use disorder, opioid use disorder on maintenance therapy s/p Trazodone overdose. Pt struggling with chronic homelessness, unable to find a program for longer team addiction treatment and stable therapist and medication provider. Pt with anemia-?chronic illness and substance abuse. Pt agreeable to re-establish regime, titrate and search for resources for ongoing care. Plan: Complete Phenobarbital taper Wellbutrin XL 300 mg a.m. Adderall XR 10 mg a.m. FeSO4 324 mg daily MVI i tab daily 09/06/22: Continue current plan. 09/07/22: Clonidine 0.1 mg bid to address anxiety, assist with sleep quality. 09/08/22: Continue current plan of care. 09/09: Continue current Regimen and plans 09/10: Continue current regimen and plans 09/12/22 Continue current regime and plan of care. 09/15/22: Continue current regime and plan of care. Reports variable degrees of pain in fingers/hands RF, KAYLA, ESR 09/16/2022: No changes to current treatment plan 09/17/2022: No significant changes 09/18/22: Increase Lidocaine patch to BID 09/19/22: Continue current plan-interviews with residential treatment today pending results. I spent minutes with the patient and/or on the patient floor today, greater than?50% of which was spent counseling/coordinating care. Guardian/Caregiver educated on: medical condition Reason for contiued inpatient stay Substantial Risk for: harm to self and rapid decompensation
[2022-09-19 13:26] LABS: Anti Nuclear Antibody Screen NEGATIVE (NEGATIVE)
[2022-09-19] MEDS: hydrOXYzine HCL 25 MG TABLET PO ×2 (13:27→18:43)
[2022-09-19] MEDS: Promethazine HCL 25 MG TABLET PO ×2 (13:27→18:43)
[2022-09-19] MEDS: Lidocaine 4 % Patch ADH..PATCH 1 PATCH TRANSDERMA (18:43)
[2022-09-19] MEDS: QUEtiapine Fumarate 100 MG TABLET PO (18:43)
[2022-09-19 19:44] VITALS: BP 134/77; PULSE 66
[2022-09-20] MEDS: Capsaicin 0.025% Cream 60 GM TUBE 1 APPL TOPICAL (05:33)
[2022-09-20] MEDS: Acetaminophen 325 MG TABLET 650 MG PO (05:33)
[2022-09-20] MEDS: hydrOXYzine HCL 25 MG TABLET PO ×2 (05:34→14:15)
[2022-09-20 08:00] VITALS: BP 122/72; PULSE 53; TEMP 36.1; O2SAT 97
[2022-09-20] MEDS: Dextroamphetamine/Amphetamine XR 10 MG CAP.ER.24H 20 MG PO (08:55)
[2022-09-20] MEDS: Multivitamin TABLET 1 TAB PO (08:55)
[2022-09-20] MEDS: Escitalopram Oxalate 10 MG TABLET PO (08:56)
[2022-09-20] MEDS: Propranolol HCL 40 MG TABLET PO ×2 (08:56→19:35)
[2022-09-20] MEDS: cloNIDine HCL 0.2 MG TABLET PO ×2 (08:56→19:35)
[2022-09-20] MEDS: buPROPion HCl XL 300 MG TAB.ER.24H PO (08:56)
[2022-09-20] MEDS: Gabapentin 300 MG CAPSULE 600 MG PO ×3 (08:56→19:35)
[2022-09-20] MEDS: Thiamine HCL 100 MG TABLET PO (08:56)
[2022-09-20] MEDS: methADONE HCl 20 MG/2 ML ORAL.CONC 140 MG PO (08:57)
[2022-09-20] MEDS: Lidocaine 4 % Patch ADH..PATCH 1 PATCH TRANSDERMA ×2 (08:59→19:35)
[2022-09-20] MEDS: Ferrous Sulfate 324 MG TABLET.DR PO (09:20)
--- NOTE | 2022-09-20 09:58 | HO.PSYCHPN ---
Subjective Subjective Date of Service: 09/20/22 Reason For Visit: OD, depression Subjective Notes: Conditional Voluntary Healthcare Proxy: No Guardianship: No Interim History: Pt on wellbutrin for dep seems motivated for sobriety deyphoric irritable on methadone Medication Compliance: Yes Side effects from medications: No Attending Groups: Intermittent Review of Systems Acute medical concerns: No Medical Review of Systems: unchanged Mental Status Exam Mental Status Exam Patient Appearance: Appropriate Patient Orientation: Person, Place, Time and Situation Level of Consciousness: Alert Patient Behavior: Talkative and Good Eye Contact Mood Description: Appropriate Affect Description: Appropriate Patient Cognition Impaired: No Ability to Follow Directions: Good Speech Pattern: Spontaneous Speech Hallucinations: None Delusions: Not Present Thought Process: Rumination Thought Content: positive for Perseveration Depressive Symptoms: Feelings of Guilt and Low Self Esteem Judgement: Good Diagnostics Vital Signs (24Hr): Vital Signs - 24 hr 09/19/22 19:44 09/20/22 08:00 Temperature 97 F Pulse Rate 66 53 Blood Pressure 134/77 122/72 Pulse Oximetry 97 Oxygen Delivery Method Room Air BMI result Body Mass Index 39.3 Labs Results: 09/06/22 08:35 Labs: Laboratory Results - last 48 hr 09/16/22 15:30 KAYLA Screen NEGATIVE KAYLA Titer TNP KAYLA Titer 2 TNP KAYLA Titer 3 TNP KAYLA Pattern TNP KAYLA Pattern 2 TNP KAYLA Pattern 3 TNP Medications Medications Current Medications Acetaminophen (Acetaminophen 325 Mg Tablet) 650 mg PO Q6H PRN PRN Reason: Headache/Pain Mild Scale (1-3) Last Admin: 09/20/22 05:33 Dose: 650 mg Al Hydroxide/Mg Hydroxide (Magnesium Hydrox/Alum Hydrox 30 Ml Oral.Susp) 30 ml PO Q6H PRN PRN Reason: Heartburn/Nausea Amphetamine/Dextroamphetamine (Dextroamphetamine/Amphetamine Xr 10 Mg Cap.Er.24h) 20 mg PO DAILY [facility] Last Admin: 09/20/22 08:55 Dose: 20 mg Bupropion HCl (Bupropion Hcl Xl 300 Mg Tab.Er.24h) 300 mg PO DAILY [facility] Last Admin: 09/20/22 08:56 Dose: 300 mg Capsaicin (Capsaicin 0.025% Cream 60 Gm Tube) 1 appl TOPICAL QID PRN; Protocol PRN Reason: muscle pain Last Admin: 09/20/22 05:33 Dose: 1 appl Clonidine HCl (Clonidine Hcl 0.2 Mg Tablet) 0.2 mg PO BID [facility]; Protocol Last Admin: 09/20/22 08:56 Dose: 0.2 mg Escitalopram Oxalate (Escitalopram Oxalate 10 Mg Tablet) 10 mg PO DAILY [facility] Last Admin: 09/20/22 08:56 Dose: 10 mg Ferrous Sulfate (Ferrous Sulfate 324 Mg Tablet.Dr) 324 mg PO DAILY [facility] Last Admin: 09/20/22 09:20 Dose: 324 mg Gabapentin (Gabapentin 300 Mg Capsule) 600 mg PO TID [facility] Last Admin: 09/20/22 08:56 Dose: 600 mg Hydroxyzine HCl (Hydroxyzine Hcl 25 Mg Tablet) 25 mg PO Q6H PRN PRN Reason: Anxiety Last Admin: 09/20/22 05:34 Dose: 25 mg Lidocaine (Lidocaine 4 % Patch Adh..Patch) 1 patch TRANSDERMA BID [facility]; Protocol Last Admin: 09/20/22 08:59 Dose: 1 patch Magnesium Hydroxide (Milk Of Magnesia 30 Ml Oral.Susp) 30 ml PO DAILY PRN PRN Reason: Constipation Methadone HCl (Methadone Hcl 20 Mg/2 Ml Oral.Conc) 140 mg PO DAILY [facility] Last Admin: 09/20/22 08:57 Dose: 140 mg Multivitamins/Vitamin C (Multivitamin Tablet) 1 tab PO DAILY [facility] Last Admin: 09/20/22 08:55 Dose: 1 tab Ondansetron HCl (Ondansetron Hcl 4 Mg/2 Ml Vial) 4 mg IVPUSH Q8H PRN PRN Reason: Nausea and Vomiting Promethazine HCl (Promethazine Hcl 25 Mg Tablet) 25 mg PO TID PRN PRN Reason: Nausea And Vomiting Last Admin: 09/19/22 18:43 Dose: 25 mg Propranolol HCl (Propranolol Hcl 40 Mg Tablet) 40 mg PO BID [facility]; Protocol Last Admin: 09/20/22 08:56 Dose: 40 mg Quetiapine Fumarate (Quetiapine Fumarate 100 Mg Tablet) 100 mg PO BEDTIME [facility] Last Admin: 09/19/22 18:43 Dose: 100 mg Thiamine HCl (Thiamine Hcl 100 Mg Tablet) 100 mg PO DAILY [facility] Last Admin: 09/20/22 08:56 Dose: 100 mg Allergies Allergies Allergy/AdvReac Type Severity Reaction Status Date / Time No Known Allergies Allergy Verified 11/28/21 20:05 Assessment & Plan Assessment & Plan (1) MDD (major depressive disorder), recurrent episode, moderate: Status: Acute Code(s): F33.1 - Major depressive disorder, recurrent, moderate (2) Alcohol use disorder, moderate, dependence: Status: Acute Code(s): F10.20 - Alcohol dependence, uncomplicated (3) Cocaine use disorder, moderate, dependence: Status: Acute Code(s): F14.20 - Cocaine dependence, uncomplicated (4) Opioid use disorder, severe, on maintenance therapy: Status: Acute Code(s): F11.20 - Opioid dependence, uncomplicated (5) ADHD: Status: Acute Code(s): F90.9 - Attention-deficit hyperactivity disorder, unspecified type Plan 41 yo male, hx of recurrent major depression, IWONA, ADHD, PTSD, alcohol and cocaine use disorder, opioid use disorder on maintenance therapy s/p Trazodone overdose. Pt struggling with chronic homelessness, unable to find a program for longer team addiction treatment and stable therapist and medication provider. Pt with anemia-?chronic illness and substance abuse. Pt agreeable to re-establish regime, titrate and search for resources for ongoing care. Plan: Complete Phenobarbital taper Wellbutrin XL 300 mg a.m. Adderall XR 10 mg a.m. FeSO4 324 mg daily MVI i tab daily 09/06/22: Continue current plan. 09/07/22: Clonidine 0.1 mg bid to address anxiety, assist with sleep quality. 09/08/22: Continue current plan of care. 09/09: Continue current Regimen and plans 09/10: Continue current regimen and plans 09/12/22 Continue current regime and plan of care. 09/15/22: Continue current regime and plan of care. Reports variable degrees of pain in fingers/hands RF, KAYLA, ESR 09/16/2022: No changes to current treatment plan 09/17/2022: No significant changes 09/18/22: Increase Lidocaine patch to BID 09/19/22: Continue current plan-interviews with residential treatment today pending results. 09/20/22 continue plan of care referrals for stepdown s/p recent suicide attempt I spent minutes with the patient and/or on the patient floor today, greater than?50% of which was spent counseling/coordinating care. Reason for contiued inpatient stay Substantial Risk for: harm to self, rapid decompensation and med/psych decompensation
[2022-09-20] MEDS: Promethazine HCL 25 MG TABLET PO ×2 (14:15→20:43)
[2022-09-20 17:16] VITALS: BP 117/57; PULSE 65; RESP 18; TEMP 36.3; O2SAT 97
[2022-09-20 19:33] VITALS: BP 119/63; PULSE 65
[2022-09-20] MEDS: QUEtiapine Fumarate 100 MG TABLET PO (19:35)
[2022-09-20] MEDS: Magnesium Hydrox/Alum Hydrox 30 ML ORAL.SUSP PO (20:43)
[2022-09-21 06:00] VITALS: BP 122/79; PULSE 66; RESP 16; TEMP 36; O2SAT 97
[2022-09-21 07:00] VITALS: BMI 39.6
--- NOTE | 2022-09-21 07:58 | P.PNPSI_ITS ---
Subjective Subjective Date of Service: 09/21/22 Reason For Visit: OD, depression Subjective Notes: Conditional Voluntary Interim History: Pt reports long history of depression, reports I'm getting tired. He reports doing better in that he feels less depressed, awaiting placement. He denies any plan or intent to harm himself but it appears he has had severe suicidal ideation throughout his life. He reports left shoulder pain, radiating to left hand/fingers pain numbness. Per nursing, pt has been visible on the unit, social with peers. No behavioral concerns. Medication Compliance: Yes Review of Systems Review of Systems Left arm discomfort Constitutional: Reports no additional constitutional complaints Eyes: Reports no additional eye complaints Reports system reviewed and no additional complaints, except as documented Cardiovascular: Reports no additional cardiovascular complaints Respiratory: Reports no additional respiratory complaints and Reports other (recent recovery from COVID-19) Gastrointestinal: Reports no additional gastrointestinal complaints Genitourinary: Reports no additional male genitourinary complaints Musculoskeletal: Reports no additional musculoskeletal complaints Skin/Breast: Reports system reviewed and no additional complaints, except as docu Reports system reviewed and no additional complaints, except as documented Psychiatric: Reports anxiety, Reports depression, Reports hopelessness, Reports anhedonia and Reports suicidal ideation Endocrine: Reports no additional endocrine complaints Hematologic/Lymphatic: Reports no additional hematologic/lymphatic complaints Allergic/Immunologic: Reports no additional allergic/immunologic complaints Mental Status Exam Mental Status Exam Narrative: Seen in group room. Was coloring in. Pleasant with financial writer, however did not want to particularly engaged. Denied current SI. No evidence of psychosis agitation or HI. Insight and judgment does appear to be limited given level of interactions Diagnostics Vital Signs (24Hr): Vital Signs - 24 hr 09/21/22 16:31 Temperature 96.4 F L Pulse Rate 63 Respiratory Rate 16 Blood Pressure 135/62 Pulse Oximetry 98 Oxygen Delivery Method Room Air BMI result Body Mass Index 39.6 Labs Results: 09/06/22 08:35 Medications Medications Current Medications Acetaminophen (Acetaminophen 325 Mg Tablet) 650 mg PO Q6H PRN PRN Reason: Headache/Pain Mild Scale (1-3) Last Admin: 09/20/22 05:33 Dose: 650 mg Al Hydroxide/Mg Hydroxide (Magnesium Hydrox/Alum Hydrox 30 Ml Oral.Susp) 30 ml PO Q6H PRN PRN Reason: Heartburn/Nausea Last Admin: 09/20/22 20:43 Dose: 30 ml Amphetamine/Dextroamphetamine (Dextroamphetamine/Amphetamine Xr 10 Mg Cap.Er.24h) 20 mg PO DAILY [facility] Last Admin: 09/21/22 08:30 Dose: 20 mg Bupropion HCl (Bupropion Hcl Xl 300 Mg Tab.Er.24h) 300 mg PO DAILY [facility] Last Admin: 09/21/22 08:31 Dose: 300 mg Capsaicin (Capsaicin 0.025% Cream 60 Gm Tube) 1 appl TOPICAL QID PRN; Protocol PRN Reason: muscle pain Last Admin: 09/21/22 13:04 Dose: 1 appl Clonidine HCl (Clonidine Hcl 0.2 Mg Tablet) 0.2 mg PO BID [facility]; Protocol Last Admin: 09/21/22 19:15 Dose: 0.2 mg Escitalopram Oxalate (Escitalopram Oxalate 10 Mg Tablet) 10 mg PO DAILY [facility] Last Admin: 09/21/22 08:31 Dose: 10 mg Ferrous Sulfate (Ferrous Sulfate 324 Mg Tablet.Dr) 324 mg PO DAILY [facility] Last Admin: 09/21/22 08:31 Dose: 324 mg Gabapentin (Gabapentin 300 Mg Capsule) 600 mg PO TID [facility] Last Admin: 09/21/22 19:16 Dose: 600 mg Hydroxyzine HCl (Hydroxyzine Hcl 25 Mg Tablet) 25 mg PO Q6H PRN PRN Reason: Anxiety Last Admin: 09/21/22 19:16 Dose: 25 mg Lidocaine (Lidocaine 4 % Patch Adh..Patch) 1 patch TRANSDERMA BID [facility]; Protocol Last Admin: 09/21/22 19:15 Dose: 1 patch Magnesium Hydroxide (Milk Of Magnesia 30 Ml Oral.Susp) 30 ml PO DAILY PRN PRN Reason: Constipation Methadone HCl (Methadone Hcl 20 Mg/2 Ml Oral.Conc) 140 mg PO DAILY [facility] Last Admin: 09/21/22 08:30 Dose: 140 mg Multivitamins/Vitamin C (Multivitamin Tablet) 1 tab PO DAILY [facility] Last Admin: 09/21/22 08:31 Dose: 1 tab Ondansetron HCl (Ondansetron Hcl 4 Mg/2 Ml Vial) 4 mg IVPUSH Q8H PRN PRN Reason: Nausea and Vomiting Promethazine HCl (Promethazine Hcl 25 Mg Tablet) 25 mg PO TID PRN PRN Reason: Nausea And Vomiting Last Admin: 09/21/22 19:16 Dose: 25 mg Propranolol HCl (Propranolol Hcl 40 Mg Tablet) 40 mg PO BID [facility]; Protocol Last Admin: 09/21/22 19:16 Dose: 40 mg Quetiapine Fumarate (Quetiapine Fumarate 100 Mg Tablet) 100 mg PO BEDTIME [facility] Last Admin: 09/21/22 19:16 Dose: 100 mg Thiamine HCl (Thiamine Hcl 100 Mg Tablet) 100 mg PO DAILY [facility] Last Admin: 09/21/22 08:31 Dose: 100 mg Allergies Allergies Allergy/AdvReac Type Severity Reaction Status Date / Time No Known Allergies Allergy Verified 11/28/21 20:05 Assessment & Plan Assessment & Plan (1) MDD (major depressive disorder), recurrent episode, moderate: Status: Acute Code(s): F33.1 - Major depressive disorder, recurrent, moderate (2) Alcohol use disorder, moderate, dependence: Status: Acute Code(s): F10.20 - Alcohol dependence, uncomplicated (3) Cocaine use disorder, moderate, dependence: Status: Acute Code(s): F14.20 - Cocaine dependence, uncomplicated (4) Opioid use disorder, severe, on maintenance therapy: Status: Acute Code(s): F11.20 - Opioid dependence, uncomplicated (5) ADHD: Status: Acute Code(s): F90.9 - Attention-deficit hyperactivity disorder, unspecified type Plan 41 yo male, hx of recurrent major depression, IWONA, ADHD, PTSD, alcohol and cocaine use disorder, opioid use disorder on maintenance therapy s/p Trazodone overdose. Pt struggling with chronic homelessness, unable to find a program for longer team addiction treatment and stable therapist and medication provider. Pt with anemia-?chronic illness and substance abuse. Pt agreeable to re-establish regime, titrate and search for resources for ongoing care. Plan: Complete Phenobarbital taper Wellbutrin XL 300 mg a.m. Adderall XR 10 mg a.m. FeSO4 324 mg daily MVI i tab daily 09/06/22: Continue current plan. 09/07/22: Clonidine 0.1 mg bid to address anxiety, assist with sleep quality. 09/08/22: Continue current plan of care. 09/09: Continue current Regimen and plans 09/10: Continue current regimen and plans 09/12/22 Continue current regime and plan of care. 09/15/22: Continue current regime and plan of care. Reports variable degrees of pain in fingers/hands RF, KAYLA, ESR 09/16/2022: No changes to current treatment plan 09/17/2022: No significant changes 09/18/22: Increase Lidocaine patch to BID 09/19/22: Continue current plan-interviews with residential treatment today pending results. 09/20/22 continue plan of care referrals for stepdown s/p recent suicide attempt 09/21 continue tx. I spent minutes with the patient and/or on the patient floor today, greater than?50% of which was spent counseling/coordinating care. Reason for contiued inpatient stay Substantial Risk for: harm to self
[2022-09-21] MEDS: Dextroamphetamine/Amphetamine XR 10 MG CAP.ER.24H 20 MG PO (08:30)
[2022-09-21] MEDS: Lidocaine 4 % Patch ADH..PATCH 1 PATCH TRANSDERMA ×2 (08:30→19:15)
[2022-09-21] MEDS: methADONE HCl 20 MG/2 ML ORAL.CONC 140 MG PO (08:30)
[2022-09-21] MEDS: Propranolol HCL 40 MG TABLET PO ×2 (08:31→19:16)
[2022-09-21] MEDS: buPROPion HCl XL 300 MG TAB.ER.24H PO (08:31)
[2022-09-21] MEDS: Thiamine HCL 100 MG TABLET PO (08:31)
[2022-09-21] MEDS: Escitalopram Oxalate 10 MG TABLET PO (08:31)
[2022-09-21] MEDS: cloNIDine HCL 0.2 MG TABLET PO ×2 (08:31→19:15)
[2022-09-21] MEDS: Ferrous Sulfate 324 MG TABLET.DR PO (08:31)
[2022-09-21] MEDS: Multivitamin TABLET 1 TAB PO (08:31)
[2022-09-21] MEDS: Gabapentin 300 MG CAPSULE 600 MG PO ×3 (08:31→19:16)
[2022-09-21] MEDS: hydrOXYzine HCL 25 MG TABLET PO ×2 (13:04→19:16)
[2022-09-21] MEDS: Promethazine HCL 25 MG TABLET PO ×2 (13:04→19:16)
[2022-09-21] MEDS: Capsaicin 0.025% Cream 60 GM TUBE 1 APPL TOPICAL (13:04)
[2022-09-21 16:31] VITALS: BP 135/62; PULSE 63; RESP 16; TEMP 35.8; O2SAT 98
[2022-09-21] MEDS: QUEtiapine Fumarate 100 MG TABLET PO (19:16)
[2022-09-22 06:00] VITALS: BP 131/81; PULSE 59; RESP 18; O2SAT 98
[2022-09-22] MEDS: methADONE HCl 20 MG/2 ML ORAL.CONC 140 MG PO (08:29)
[2022-09-22] MEDS: buPROPion HCl XL 300 MG TAB.ER.24H PO (08:30)
[2022-09-22] MEDS: Lidocaine 4 % Patch ADH..PATCH 1 PATCH TRANSDERMA ×2 (08:30→19:29)
[2022-09-22] MEDS: cloNIDine HCL 0.2 MG TABLET PO ×2 (08:30→19:23)
[2022-09-22] MEDS: Gabapentin 300 MG CAPSULE 600 MG PO ×3 (08:30→19:22)
[2022-09-22] MEDS: Multivitamin TABLET 1 TAB PO (08:31)
[2022-09-22] MEDS: Thiamine HCL 100 MG TABLET PO (08:31)
[2022-09-22] MEDS: Dextroamphetamine/Amphetamine XR 10 MG CAP.ER.24H 20 MG PO (08:31)
[2022-09-22] MEDS: Ferrous Sulfate 324 MG TABLET.DR PO (08:31)
[2022-09-22] MEDS: Escitalopram Oxalate 10 MG TABLET PO (08:31)
[2022-09-22] MEDS: Propranolol HCL 40 MG TABLET PO ×2 (08:31→19:27)
[2022-09-22] MEDS: Acetaminophen 325 MG TABLET 650 MG PO (08:57)
[2022-09-22] MEDS: Promethazine HCL 25 MG TABLET PO ×2 (11:35→19:21)
[2022-09-22] MEDS: hydrOXYzine HCL 25 MG TABLET PO (11:35)
--- NOTE | 2022-09-22 14:32 | P.PNPSI_ITS ---
Subjective Subjective Date of Service: 09/22/22 Reason For Visit: OD, depression Subjective Notes: Conditional Voluntary Healthcare Proxy: No Guardianship: No Medical Problems Affecting Mental Status: No Interim History: Anxiety and frustration in waiting for placement. Shoulder, finger pain persist. Capciasin cream too hot , asks to d/c Agrees to Ibuprofen Asks for hydroxyzine dose eval for anxiety mgt. Medication Compliance: Yes Side effects from medications: No Attending Groups: Intermittent Review of Systems Acute medical concerns: No Medical Review of Systems: unchanged Mental Status Exam Mental Status Exam Patient Appearance: Appropriate Patient Orientation: Person, Place, Time and Situation Level of Consciousness: Alert Patient Behavior: Talkative and Good Eye Contact Mood Description: Appropriate Affect Description: Appropriate Patient Cognition Impaired: No Ability to Follow Directions: Good Speech Pattern: Spontaneous Speech Hallucinations: None Delusions: Not Present Thought Process: Rumination Thought Content: positive for Perseveration Depressive Symptoms: Feelings of Guilt and Low Self Esteem Judgement: Good Diagnostics Vital Signs (24Hr): Vital Signs - 24 hr 09/21/22 16:31 09/22/22 06:00 Temperature 96.4 F L Pulse Rate 63 59 Respiratory Rate 16 18 Blood Pressure 135/62 131/81 Pulse Oximetry 98 98 Oxygen Delivery Method Room Air Room Air BMI result Body Mass Index 39.6 Labs Results: 09/06/22 08:35 Medications Medications Current Medications Acetaminophen (Acetaminophen 325 Mg Tablet) 650 mg PO Q6H PRN PRN Reason: Headache/Pain Mild Scale (1-3) Last Admin: 09/22/22 08:57 Dose: 650 mg Al Hydroxide/Mg Hydroxide (Magnesium Hydrox/Alum Hydrox 30 Ml Oral.Susp) 30 ml PO Q6H PRN PRN Reason: Heartburn/Nausea Last Admin: 09/20/22 20:43 Dose: 30 ml Amphetamine/Dextroamphetamine (Dextroamphetamine/Amphetamine Xr 10 Mg Cap.E r.24h) 20 mg PO DAILY [facility] Last Admin: 09/22/22 08:31 Dose: 20 mg Bupropion HCl (Bupropion Hcl Xl 300 Mg Tab.Er.24h) 300 mg PO DAILY [facility] Last Admin: 09/22/22 08:30 Dose: 300 mg Capsaicin (Capsaicin 0.025% Cream 60 Gm Tube) 1 appl TOPICAL QID PRN; Protocol PRN Reason: muscle pain Last Admin: 09/21/22 13:04 Dose: 1 appl Clonidine HCl (Clonidine Hcl 0.2 Mg Tablet) 0.2 mg PO BID [facility]; Protocol Last Admin: 09/22/22 08:30 Dose: 0.2 mg Escitalopram Oxalate (Escitalopram Oxalate 10 Mg Tablet) 10 mg PO DAILY [facility] Last Admin: 09/22/22 08:31 Dose: 10 mg Ferrous Sulfate (Ferrous Sulfate 324 Mg Tablet.Dr) 324 mg PO DAILY [facility] Last Admin: 09/22/22 08:31 Dose: 324 mg Gabapentin (Gabapentin 300 Mg Capsule) 600 mg PO TID [facility] Last Admin: 09/22/22 08:30 Dose: 600 mg Hydroxyzine HCl (Hydroxyzine Hcl 25 Mg Tablet) 25 mg PO Q6H PRN PRN Reason: Anxiety Last Admin: 09/22/22 11:35 Dose: 25 mg Lidocaine (Lidocaine 4 % Patch Adh..Patch) 1 patch TRANSDERMA BID [facility]; Protocol Last Admin: 09/22/22 08:30 Dose: 1 patch Magnesium Hydroxide (Milk Of Magnesia 30 Ml Oral.Susp) 30 ml PO DAILY PRN PRN Reason: Constipation Methadone HCl (Methadone Hcl 20 Mg/2 Ml Oral.Conc) 140 mg PO DAILY [facility] Last Admin: 09/22/22 08:29 Dose: 140 mg Multivitamins/Vitamin C (Multivitamin Tablet) 1 tab PO DAILY [facility] Last Admin: 09/22/22 08:31 Dose: 1 tab Ondansetron HCl (Ondansetron Hcl 4 Mg/2 Ml Vial) 4 mg IVPUSH Q8H PRN PRN Reason: Nausea and Vomiting Promethazine HCl (Promethazine Hcl 25 Mg Tablet) 25 mg PO TID PRN PRN Reason: Nausea And Vomiting Last Admin: 09/22/22 11:35 Dose: 25 mg Propranolol HCl (Propranolol Hcl 40 Mg Tablet) 40 mg PO BID [facility]; Protocol Last Admin: 09/22/22 08:31 Dose: 40 mg Quetiapine Fumarate (Quetiapine Fumarate 100 Mg Tablet) 100 mg PO BEDTIME [facility] Last Admin: 09/21/22 19:16 Dose: 100 mg Thiamine HCl (Thiamine Hcl 100 Mg Tablet) 100 mg PO DAILY [facility] Last Admin: 09/22/22 08:31 Dose: 100 mg Allergies Allergies Allergy/AdvReac Type Severity Reaction Status Date / Time No Known Allergies Allergy Verified 11/28/21 20:05 Assessment & Plan Assessment & Plan (1) MDD (major depressive disorder), recurrent episode, moderate: Status: Acute Code(s): F33.1 - Major depressive disorder, recurrent, moderate (2) Alcohol use disorder, moderate, dependence: Status: Acute Code(s): F10.20 - Alcohol dependence, uncomplicated (3) Cocaine use disorder, moderate, dependence: Status: Acute Code(s): F14.20 - Cocaine dependence, uncomplicated (4) Opioid use disorder, severe, on maintenance therapy: Status: Acute Code(s): F11.20 - Opioid dependence, uncomplicated (5) ADHD: Status: Acute Code(s): F90.9 - Attention-deficit hyperactivity disorder, unspecified type Plan 41 yo male, hx of recurrent major depression, IWONA, ADHD, PTSD, alcohol and cocaine use disorder, opioid use disorder on maintenance therapy s/p Trazodone overdose. Pt struggling with chronic homelessness, unable to find a program for longer team addiction treatment and stable therapist and medication provider. Pt with anemia-?chronic illness and substance abuse. Pt agreeable to re-establish regime, titrate and search for resources for ongoing care. Plan: Complete Phenobarbital taper Wellbutrin XL 300 mg a.m. Adderall XR 10 mg a.m. FeSO4 324 mg daily [facility] i tab daily 09/06/22: Continue current plan. 09/07/22: Clonidine 0.1 mg bid to address anxiety, assist with sleep quality. 09/08/22: Continue current plan of care. 09/09: Continue current Regimen and plans 09/10: Continue current regimen and plans 09/12/22 Continue current regime and plan of care. 09/15/22: Continue current regime and plan of care. Reports variable degrees of pain in fingers/hands RF, KAYLA, ESR 09/16/2022: No changes to current treatment plan 09/17/2022: No significant changes 09/18/22: Increase Lidocaine patch to BID 09/19/22: Continue current plan-interviews with residential treatment today pending results. 09/20/22 continue plan of care referrals for stepdown s/p recent suicide attempt 09/21 continue tx. 09/22/22: Discontinue Capciasin Ibuprofen 800 mg q8h prn shoulder pain Increase hydroxyzine to 50 mg prn I spent minutes with the patient and/or on the patient floor today, greater than?50% of which was spent counseling/coordinating care. Patient educated on: medication risk/benefits and therapeutic strategies Informed Consent: further education needed Reason for contiued inpatient stay Substantial Risk for: harm to self and rapid decompensation
[2022-09-22 19:10] VITALS: BP 119/78; PULSE 68; TEMP 36.3
[2022-09-22] MEDS: hydrOXYzine HCL 50 MG TABLET PO (19:20)
[2022-09-22] MEDS: Ibuprofen 800 MG TABLET PO (19:21)
[2022-09-22] MEDS: QUEtiapine Fumarate 100 MG TABLET PO (19:29)
[2022-09-23] MEDS: methADONE HCl 20 MG/2 ML ORAL.CONC 140 MG PO (08:53)
[2022-09-23] MEDS: Propranolol HCL 40 MG TABLET PO ×2 (08:53→20:42)
[2022-09-23] MEDS: Dextroamphetamine/Amphetamine XR 10 MG CAP.ER.24H 20 MG PO (08:53)
[2022-09-23] MEDS: Multivitamin TABLET 1 TAB PO (08:53)
[2022-09-23] MEDS: Escitalopram Oxalate 10 MG TABLET PO (08:53)
[2022-09-23] MEDS: buPROPion HCl XL 300 MG TAB.ER.24H PO (08:53)
[2022-09-23] MEDS: cloNIDine HCL 0.2 MG TABLET PO ×2 (08:53→20:41)
[2022-09-23] MEDS: Ferrous Sulfate 324 MG TABLET.DR PO (08:53)
[2022-09-23] MEDS: Gabapentin 300 MG CAPSULE 600 MG PO ×3 (08:54→20:42)
[2022-09-23] MEDS: Thiamine HCL 100 MG TABLET PO (08:54)
[2022-09-23 08:56] VITALS: BP 134/86; PULSE 67; RESP 18; TEMP 36.1; O2SAT 98
[2022-09-23] MEDS: Lidocaine 4 % Patch ADH..PATCH 1 PATCH TRANSDERMA ×2 (08:56→20:43)
--- NOTE | 2022-09-23 11:10 | HO.PSYCHPN ---
Subjective Subjective Date of Service: 09/23/22 Reason For Visit: OD, depression Interim History: Patient seen and discussed with nursing. Patient reports he is feeling better. Somewhat dismissive and reluctant to engage. Denies depression, SI, HI, or AVH. Denies physical complaints to this fiction and nonfiction prose writer. Review of Systems Review of Systems Left arm discomfort Constitutional: Reports no additional constitutional complaints Eyes: Reports no additional eye complaints Reports system reviewed and no additional complaints, except as documented Cardiovascular: Reports no additional cardiovascular complaints Respiratory: Reports no additional respiratory complaints and Reports other (recent recovery from COVID-19) Gastrointestinal: Reports no additional gastrointestinal complaints Genitourinary: Reports no additional male genitourinary complaints Musculoskeletal: Reports no additional musculoskeletal complaints Skin/Breast: Reports system reviewed and no additional complaints, except as docu Reports system reviewed and no additional complaints, except as documented Psychiatric: Reports anxiety, Reports depression, Reports hopelessness, Reports anhedonia and Reports suicidal ideation Endocrine: Reports no additional endocrine complaints Hematologic/Lymphatic: Reports no additional hematologic/lymphatic complaints Allergic/Immunologic: Reports no additional allergic/immunologic complaints Mental Status Exam Mental Status Exam Narrative: Seen in group room. Was coloring in. Pleasant with fiction and nonfiction prose writer, however did not want to particularly engaged. Denied current SI. No evidence of psychosis agitation or HI. Insight and judgment does appear to be limited given level of interactions Patient Appearance: Appropriate Patient Orientation: Person, Place, Time and Situation Level of Consciousness: Alert Patient Behavior: Talkative and Good Eye Contact Mood Description: Appropriate Affect Description: Appropriate Patient Cognition Impaired: No Ability to Follow Directions: Good Speech Pattern: Spontaneous Speech Memory Description: Episodic Impaired Diagnostics Vital Signs (24Hr): Vital Signs - 24 hr 09/23/22 08:56 Temperature 97.0 F Pulse Rate 67 Respiratory Rate 18 Blood Pressure 134/86 Pulse Oximetry 98 Oxygen Delivery Method Room Air BMI result Body Mass Index 39.6 Labs Results: 09/06/22 08:35 Medications Medications Current Medications Acetaminophen (Acetaminophen 325 Mg Tablet) 650 mg PO Q6H PRN PRN Reason: Headache/Pain Mild Scale (1-3) Last Admin: 09/22/22 08:57 Dose: 650 mg Al Hydroxide/Mg Hydroxide (Magnesium Hydrox/Alum Hydrox 30 Ml Oral.Susp) 30 ml PO Q6H PRN PRN Reason: Heartburn/Nausea Last Admin: 09/20/22 20:43 Dose: 30 ml Amphetamine/Dextroamphetamine (Dextroamphetamine/Amphetamine Xr 10 Mg Cap.Er.24h) 20 mg PO DAILY [facility] Last Admin: 09/23/22 08:53 Dose: 20 mg Bupropion HCl (Bupropion Hcl Xl 300 Mg Tab.Er.24h) 300 mg PO DAILY [facility] Last Admin: 09/23/22 08:53 Dose: 300 mg Clonidine HCl (Clonidine Hcl 0.2 Mg Tablet) 0.2 mg PO BID [facility]; Protocol Last Admin: 09/23/22 08:53 Dose: 0.2 mg Escitalopram Oxalate (Escitalopram Oxalate 10 Mg Tablet) 10 mg PO DAILY [facility] Last Admin: 09/23/22 08:53 Dose: 10 mg Ferrous Sulfate (Ferrous Sulfate 324 Mg Tablet.Dr) 324 mg PO DAILY [facility] Last Admin: 09/23/22 08:53 Dose: 324 mg Gabapentin (Gabapentin 300 Mg Capsule) 600 mg PO TID [facility] Last Admin: 09/23/22 14:10 Dose: 600 mg Hydroxyzine HCl (Hydroxyzine Hcl 50 Mg Tablet) 50 mg PO Q6H PRN PRN Reason: Anxiety Last Admin: 09/23/22 11:47 Dose: 50 mg Ibuprofen (Ibuprofen 800 Mg Tablet) 800 mg PO Q8H PRN PRN Reason: Pain, Mild (Pain Scale 1-3) Last Admin: 09/22/22 19:21 Dose: 800 mg Lidocaine (Lidocaine 4 % Patch Adh..Patch) 1 patch TRANSDERMA BID [facility]; Protocol Last Admin: 09/23/22 08:56 Dose: 1 patch Magnesium Hydroxide (Milk Of Magnesia 30 Ml Oral.Susp) 30 ml PO DAILY PRN PRN Reason: Constipation Methadone HCl (Methadone Hcl 20 Mg/2 Ml Oral.Conc) 140 mg PO DAILY [facility] Last Admin: 09/23/22 08:53 Dose: 140 mg Multivitamins/Vitamin C (Multivitamin Tablet) 1 tab PO DAILY [facility] Last Admin: 09/23/22 08:53 Dose: 1 tab Ondansetron HCl (Ondansetron Hcl 4 Mg/2 Ml Vial) 4 mg IVPUSH Q8H PRN PRN Reason: Nausea and Vomiting Promethazine HCl (Promethazine Hcl 25 Mg Tablet) 25 mg PO TID PRN PRN Reason: Nausea And Vomiting Last Admin: 09/23/22 11:47 Dose: 25 mg Propranolol HCl (Propranolol Hcl 40 Mg Tablet) 40 mg PO BID [facility]; Protocol Last Admin: 09/23/22 08:53 Dose: 40 mg Quetiapine Fumarate (Quetiapine Fumarate 100 Mg Tablet) 100 mg PO BEDTIME [facility] Last Admin: 09/22/22 19:29 Dose: 100 mg Thiamine HCl (Thiamine Hcl 100 Mg Tablet) 100 mg PO DAILY [facility] Last Admin: 09/23/22 08:54 Dose: 100 mg Allergies Allergies Allergy/AdvReac Type Severity Reaction Status Date / Time No Known Allergies Allergy Verified 11/28/21 20:05 Assessment & Plan Assessment & Plan (1) MDD (major depressive disorder), recurrent episode, moderate: Status: Acute Code(s): F33.1 - Major depressive disorder, recurrent, moderate (2) Alcohol use disorder, moderate, dependence: Status: Acute Code(s): F10.20 - Alcohol dependence, uncomplicated (3) Cocaine use disorder, moderate, dependence: Status: Acute Code(s): F14.20 - Cocaine dependence, uncomplicated (4) Opioid use disorder, severe, on maintenance therapy: Status: Acute Code(s): F11.20 - Opioid dependence, uncomplicated (5) ADHD: Status: Acute Code(s): F90.9 - Attention-deficit hyperactivity disorder, unspecified type Plan 41 yo male, hx of recurrent major depression, IWONA, ADHD, PTSD, alcohol and cocaine use disorder, opioid use disorder on maintenance therapy s/p Trazodone overdose. Pt struggling with chronic homelessness, unable to find a program for longer team addiction treatment and stable therapist and medication provider. Pt with anemia-?chronic illness and substance abuse. Pt agreeable to re-establish regime, titrate and search for resources for ongoing care. Plan: Complete Phenobarbital taper Wellbutrin XL 300 mg a.m. Adderall XR 10 mg a.m. FeSO4 324 mg daily [facility]VI i tab daily 09/06/22: Continue current plan. 09/07/22: Clonidine 0.1 mg bid to address anxiety, assist with sleep quality. 09/08/22: Continue current plan of care. 09/09: Continue current Regimen and plans 09/10: Continue current regimen and plans 09/12/22 Continue current regime and plan of care. 09/15/22: Continue current regime and plan of care. Reports variable degrees of pain in fingers/hands RF, KAYLA, ESR 09/16/2022: No changes to current treatment plan 09/17/2022: No significant changes 09/18/22: Increase Lidocaine patch to BID 09/19/22: Continue current plan-interviews with residential treatment today pending results. 09/20/22 continue plan of care referrals for stepdown s/p recent suicide attempt 09/21 continue tx. 09/22/22: Discontinue Capciasin Ibuprofen 800 mg q8h prn shoulder pain Increase hydroxyzine to 50 mg prn 09/23: Continue current treatment plan. I spent minutes with the patient and/or on the patient floor today, greater than?50% of which was spent counseling/coordinating care. Reason for contiued inpatient stay Substantial Risk for: harm to self and rapid decompensation
[2022-09-23] MEDS: Promethazine HCL 25 MG TABLET PO (11:47)
[2022-09-23] MEDS: hydrOXYzine HCL 50 MG TABLET PO (11:47)
[2022-09-23 20:30] VITALS: BP 116/59; PULSE 62; TEMP 36.5
[2022-09-23] MEDS: QUEtiapine Fumarate 100 MG TABLET PO (20:42)
[2022-09-24] MEDS: Lidocaine 4 % Patch ADH..PATCH 1 PATCH TRANSDERMA ×2 (07:56→18:41)
[2022-09-24] MEDS: methADONE HCl 20 MG/2 ML ORAL.CONC 140 MG PO (07:56)
[2022-09-24] MEDS: Dextroamphetamine/Amphetamine XR 10 MG CAP.ER.24H 20 MG PO (07:57)
[2022-09-24] MEDS: cloNIDine HCL 0.2 MG TABLET PO ×2 (07:57→18:40)
[2022-09-24] MEDS: Gabapentin 300 MG CAPSULE 600 MG PO ×3 (07:57→18:40)
[2022-09-24] MEDS: Ferrous Sulfate 324 MG TABLET.DR PO (07:57)
[2022-09-24] MEDS: buPROPion HCl XL 300 MG TAB.ER.24H PO (07:57)
[2022-09-24] MEDS: Propranolol HCL 40 MG TABLET PO ×2 (07:57→18:41)
[2022-09-24] MEDS: Escitalopram Oxalate 10 MG TABLET PO (07:57)
[2022-09-24] MEDS: Multivitamin TABLET 1 TAB PO (08:02)
[2022-09-24] MEDS: Thiamine HCL 100 MG TABLET PO (08:03)
[2022-09-24 08:04] VITALS: BP 120/80; PULSE 64; RESP 18; TEMP 36.6; O2SAT 97
--- NOTE | 2022-09-24 10:55 | P.PNPSI_ITS ---
Subjective Subjective Date of Service: 09/24/22 Reason For Visit: OD, depression Interim History: Patient seen and discussed with nursing. Patient reports in terms of his mood he feels better. He is complaining of chronic left shoulder pain. He says he used the capsaicin cream but it caused a redness. He would like to try another cream as the Lidocaine patch is only partially effective. Denies depression, SI, HI, or AVH. Review of Systems Review of Systems Left arm discomfort Constitutional: Reports no additional constitutional complaints Eyes: Reports no additional eye complaints Reports system reviewed and no additional complaints, except as documented Cardiovascular: Reports no additional cardiovascular complaints Respiratory: Reports no additional respiratory complaints and Reports other (recent recovery from COVID-19) Gastrointestinal: Reports no additional gastrointestinal complaints Genitourinary: Reports no additional male genitourinary complaints Musculoskeletal: Reports no additional musculoskeletal complaints Skin/Breast: Reports system reviewed and no additional complaints, except as docu Reports system reviewed and no additional complaints, except as documented Psychiatric: Reports anxiety, Reports depression, Reports hopelessness, Reports anhedonia and Reports suicidal ideation Endocrine: Reports no additional endocrine complaints Hematologic/Lymphatic: Reports no additional hematologic/lymphatic complaints Allergic/Immunologic: Reports no additional allergic/immunologic complaints Mental Status Exam Mental Status Exam Narrative: Seen in group room. Was coloring in. Pleasant with junior technical writer, however did not want to particularly engaged. Denied current SI. No evidence of psychosis agitation or HI. Insight and judgment does appear to be limited given level of interactions Patient Appearance: Appropriate Patient Orientation: Person, Place, Time and Situation Level of Consciousness: Alert Patient Behavior: Talkative and Good Eye Contact Mood Description: Appropriate Affect Description: Appropriate Patient Cognition Impaired: No Ability to Follow Directions: Good Speech Pattern: Spontaneous Speech Memory Description: Episodic Impaired Diagnostics Vital Signs (24Hr): Vital Signs - 24 hr 09/23/22 20:30 09/24/22 08:04 09/24/22 18:40 Temperature 97.7 F 97.8 F Pulse Rate 62 64 63 Respiratory Rate 18 Blood Pressure 116/59 L 120/80 128/74 Pulse Oximetry 97 Oxygen Delivery Method Room Air BMI result Body Mass Index 39.6 Labs Results: 09/06/22 08:35 Medications Medications Current Medications Acetaminophen (Acetaminophen 325 Mg Tablet) 650 mg PO Q6H PRN PRN Reason: Headache/Pain Mild Scale (1-3) Last Admin: 09/24/22 12:03 Dose: 650 mg Al Hydroxide/Mg Hydroxide (Magnesium Hydrox/Alum Hydrox 30 Ml Oral.Susp) 30 ml PO Q6H PRN PRN Reason: Heartburn/Nausea Last Admin: 09/20/22 20:43 Dose: 30 ml Amphetamine/Dextroamphetamine (Dextroamphetamine/Amphetamine Xr 10 Mg Cap.Er.24h) 20 mg PO DAILY [facility] Last Admin: 09/24/22 07:57 Dose: 20 mg Bupropion HCl (Bupropion Hcl Xl 300 Mg Tab.Er.24h) 300 mg PO DAILY [facility] Last Admin: 09/24/22 07:57 Dose: 300 mg Clonidine HCl (Clonidine Hcl 0.2 Mg Tablet) 0.2 mg PO BID [facility]; Protocol Last Admin: 09/24/22 18:40 Dose: 0.2 mg Escitalopram Oxalate (Escitalopram Oxalate 10 Mg Tablet) 10 mg PO DAILY [facility] Last Admin: 09/24/22 07:57 Dose: 10 mg Ferrous Sulfate (Ferrous Sulfate 324 Mg Tablet.Dr) 324 mg PO DAILY [facility] Last Admin: 09/24/22 07:57 Dose: 324 mg Gabapentin (Gabapentin 300 Mg Capsule) 600 mg PO TID [facility] Last Admin: 09/24/22 18:40 Dose: 600 mg Hydroxyzine HCl (Hydroxyzine Hcl 50 Mg Tablet) 50 mg PO Q6H PRN PRN Reason: Anxiety Last Admin: 09/24/22 18:41 Dose: 50 mg Ibuprofen (Ibuprofen 800 Mg Tablet) 800 mg PO Q8H PRN PRN Reason: Pain, Mild (Pain Scale 1-3) Last Admin: 09/22/22 19:21 Dose: 800 mg Lidocaine (Lidocaine 4 % Patch Adh..Patch) 1 patch TRANSDERMA BID [facility]; Protocol Last Admin: 09/24/22 18:41 Dose: 1 patch Magnesium Hydroxide (Milk Of Magnesia 30 Ml Oral.Susp) 30 ml PO DAILY PRN PRN Reason: Constipation Methadone HCl (Methadone Hcl 20 Mg/2 Ml Oral.Conc) 140 mg PO DAILY [facility] Last Admin: 09/24/22 07:56 Dose: 140 mg Multivitamins/Vitamin C (Multivitamin Tablet) 1 tab PO DAILY [facility] Last Admin: 09/24/22 08:02 Dose: 1 tab Ondansetron HCl (Ondansetron Hcl 4 Mg/2 Ml Vial) 4 mg IVPUSH Q8H PRN PRN Reason: Nausea and Vomiting Promethazine HCl (Promethazine Hcl 25 Mg Tablet) 25 mg PO TID PRN PRN Reason: Nausea And Vomiting Last Admin: 09/24/22 18:41 Dose: 25 mg Propranolol HCl (Propranolol Hcl 40 Mg Tablet) 40 mg PO BID [facility]; Protocol Last Admin: 09/24/22 18:41 Dose: 40 mg Quetiapine Fumarate (Quetiapine Fumarate 100 Mg Tablet) 100 mg PO BEDTIME [facility] Last Admin: 09/24/22 18:40 Dose: 100 mg Thiamine HCl (Thiamine Hcl 100 Mg Tablet) 100 mg PO DAILY [facility] Last Admin: 09/24/22 08:03 Dose: 100 mg Trolamine Salicylate (Trolamine Salicylate 10 % Cream 85 Gm Tube) 1 appl TOPICAL BID PRN; Protocol PRN Reason: Pain, Moderate (Pain Scale 4-6 Allergies Allergies Allergy/AdvReac Type Severity Reaction Status Date / Time No Known Allergies Allergy Verified 11/28/21 20:05 Assessment & Plan Assessment & Plan (1) MDD (major depressive disorder), recurrent episode, moderate: Status: Acute Code(s): F33.1 - Major depressive disorder, recurrent, moderate (2) Alcohol use disorder, moderate, dependence: Status: Acute Code(s): F10.20 - Alcohol dependence, uncomplicated (3) Cocaine use disorder, moderate, dependence: Status: Acute Code(s): F14.20 - Cocaine dependence, uncomplicated (4) Opioid use disorder, severe, on maintenance therapy: Status: Acute Code(s): F11.20 - Opioid dependence, uncomplicated (5) ADHD: Status: Acute Code(s): F90.9 - Attention-deficit hyperactivity disorder, unspecified type Plan 41 yo male, hx of recurrent major depression, IWONA, ADHD, PTSD, alcohol and cocaine use disorder, opioid use disorder on maintenance therapy s/p Trazodone overdose. Pt struggling with chronic homelessness, unable to find a program for longer team addiction treatment and stable therapist and medication provider. Pt with anemia-?chronic illness and substance abuse. Pt agreeable to re-establish regime, titrate and search for resources for ongoing care. Plan: Complete Phenobarbital taper Wellbutrin XL 300 mg a.m. Adderall XR 10 mg a.m. FeSO4 324 mg daily [facility]VI i tab daily 09/06/22: Continue current plan. 09/07/22: Clonidine 0.1 mg bid to address anxiety, assist with sleep quality. 09/08/22: Continue current plan of care. 09/09: Continue current Regimen and plans 09/10: Continue current regimen and plans 09/12/22 Continue current regime and plan of care. 09/15/22: Continue current regime and plan of care. Reports variable degrees of pain in fingers/hands RF, KAYLA, ESR 09/16/2022: No changes to current treatment plan 09/17/2022: No significant changes 09/18/22: Increase Lidocaine patch to BID 09/19/22: Continue current plan-interviews with residential treatment today pending results. 09/20/22 continue plan of care referrals for stepdown s/p recent suicide attempt 09/21 continue tx. 09/22/22: Discontinue Capciasin Ibuprofen 800 mg q8h prn shoulder pain Increase hydroxyzine to 50 mg prn 09/23: Continue current treatment plan. 09/24: Trial Aspercreme for shoulder pain. I spent minutes with the patient and/or on the patient floor today, greater than?50% of which was spent counseling/coordinating care. Reason for contiued inpatient stay Substantial Risk for: harm to self, inability to function and rapid d ecompensation
[2022-09-24] MEDS: Promethazine HCL 25 MG TABLET PO ×2 (12:03→18:41)
[2022-09-24] MEDS: hydrOXYzine HCL 50 MG TABLET PO ×2 (12:03→18:41)
[2022-09-24] MEDS: Acetaminophen 325 MG TABLET 650 MG PO (12:03)
[2022-09-24 18:40] VITALS: BP 128/74; PULSE 63
[2022-09-24] MEDS: QUEtiapine Fumarate 100 MG TABLET PO (18:40)
[2022-09-25 08:15] VITALS: BP 135/81; PULSE 65; RESP 18; TEMP 36.7; O2SAT 97
[2022-09-25] MEDS: Ferrous Sulfate 324 MG TABLET.DR PO (08:22)
[2022-09-25] MEDS: methADONE HCl 20 MG/2 ML ORAL.CONC 140 MG PO (08:22)
[2022-09-25] MEDS: cloNIDine HCL 0.2 MG TABLET PO ×2 (08:22→18:37)
[2022-09-25] MEDS: Gabapentin 300 MG CAPSULE 600 MG PO ×3 (08:23→18:36)
[2022-09-25] MEDS: buPROPion HCl XL 300 MG TAB.ER.24H PO (08:24)
[2022-09-25] MEDS: Dextroamphetamine/Amphetamine XR 10 MG CAP.ER.24H 20 MG PO (08:24)
[2022-09-25] MEDS: Thiamine HCL 100 MG TABLET PO (08:24)
[2022-09-25] MEDS: Escitalopram Oxalate 10 MG TABLET PO (08:24)
[2022-09-25] MEDS: Propranolol HCL 40 MG TABLET PO ×2 (08:25→18:36)
[2022-09-25] MEDS: Multivitamin TABLET 1 TAB PO (08:25)
[2022-09-25] MEDS: Promethazine HCL 25 MG TABLET PO ×2 (13:11→18:36)
[2022-09-25] MEDS: hydrOXYzine HCL 50 MG TABLET PO ×2 (13:11→18:36)
[2022-09-25] MEDS: Lidocaine 4 % Patch ADH..PATCH 1 PATCH TRANSDERMA ×2 (13:11→18:37)
--- NOTE | 2022-09-25 16:51 | P.PNPSI_ITS ---
Subjective Subjective Date of Service: 09/25/22 Reason For Visit: OD, depression Subjective Notes: Conditional Voluntary Healthcare Proxy: No Guardianship: No Medical Problems Affecting Mental Status: No Interim History: Norbert is busy calling programs. He has organized a list for himself which is similiar to a graph to make sure he does not forget to make required calls. He is hopeful of being accepted this week. Reports current regime to be effective, Shoulder pain is improving he reports Medication Compliance: Yes Side effects from medications: No Attending Groups: Intermittent Review of Systems Acute medical concerns: No Medical Review of Systems: unchanged Mental Status Exam Mental Status Exam Patient Appearance: Appropriate Patient Orientation: Person, Place, Time and Situation Level of Consciousness: Alert Patient Behavior: Appropriate, Talkative, Cooperative and Good Eye Contact Mood Description: Apprehensive Affect Description: Apprehensive Patient Cognition Impaired: No Ability to Follow Directions: Good Speech Pattern: Spontaneous Speech Memory Description: Intact Hallucinations: None Delusions: Not Present Thought Process: Goal Oriented Thought Content: positive for Goal Oriented Depressive Symptoms: Low Self Esteem Judgement: Good Diagnostics Vital Signs (24Hr): Vital Signs - 24 hr 09/24/22 18:40 09/25/22 08:15 Temperature 98.1 F Pulse Rate 63 65 Respiratory Rate 18 Blood Pressure 128/74 135/81 Pulse Oximetry 97 Oxygen Delivery Method Room Air BMI result Body Mass Index 39.6 Labs Results: 09/06/22 08:35 Medications Medications Current Medications Acetaminophen (Acetaminophen 325 Mg Tablet) 650 mg PO Q6H PRN PRN Reason: Headache/Pain Mild Scale (1-3) Last Admin: 09/24/22 12:03 Dose: 650 mg Al Hydroxide/Mg Hydroxide (Magnesium Hydrox/Alum Hydrox 30 Ml Oral.Susp) 30 ml PO Q6H PRN PRN Reason: Heartburn/Nausea Last Admin: 09/20/22 20:43 Dose: 30 ml Amphetamine/Dextroamphetamine (Dextroamphetamine/Amphetamine Xr 10 Mg Cap.Er.24h) 20 mg PO DAILY [facility] Last Admin: 09/25/22 08:24 Dose: 20 mg Bupropion HCl (Bupropion Hcl Xl 300 Mg Tab.Er.24h) 300 mg PO DAILY [facility] Last Admin: 09/25/22 08:24 Dose: 300 mg Clonidine HCl (Clonidine Hcl 0.2 Mg Tablet) 0.2 mg PO BID [facility]; Protocol Last Admin: 09/25/22 08:22 Dose: 0.2 mg Escitalopram Oxalate (Escitalopram Oxalate 5 Mg Tablet) 15 mg PO DAILY [facility] Ferrous Sulfate (Ferrous Sulfate 324 Mg Tablet.Dr) 324 mg PO DAILY [facility] Last Admin: 09/25/22 08:22 Dose: 324 mg Gabapentin (Gabapentin 300 Mg Capsule) 600 mg PO TID [facility] Last Admin: 09/25/22 14:55 Dose: 600 mg Hydroxyzine HCl (Hydroxyzine Hcl 50 Mg Tablet) 50 mg PO Q6H PRN PRN Reason: Anxiety Last Admin: 09/25/22 13:11 Dose: 50 mg Ibuprofen (Ibuprofen 800 Mg Tablet) 800 mg PO Q8H PRN PRN Reason: Pain, Mild (Pain Scale 1-3) Last Admin: 09/22/22 19:21 Dose: 800 mg Lidocaine (Lidocaine 4 % Patch Adh..Patch) 1 patch TRANSDERMA BID [facility]; Protocol Last Admin: 09/25/22 13:11 Dose: 1 patch Magnesium Hydroxide (Milk Of Magnesia 30 Ml Oral.Susp) 30 ml PO DAILY PRN PRN Reason: Constipation Methadone HCl (Methadone Hcl 20 Mg/2 Ml Oral.Conc) 140 mg PO DAILY [facility] Last Admin: 09/25/22 08:22 Dose: 140 mg Multivitamins/Vitamin C (Multivitamin Tablet) 1 tab PO DAILY [facility] Last Admin: 09/25/22 08:25 Dose: 1 tab Ondansetron HCl (Ondansetron Hcl 4 Mg/2 Ml Vial) 4 mg IVPUSH Q8H PRN PRN Reason: Nausea and Vomiting Promethazine HCl (Promethazine Hcl 25 Mg Tablet) 25 mg PO TID PRN PRN Reason: Nausea And Vomiting Last Admin: 09/25/22 13:11 Dose: 25 mg Propranolol HCl (Propranolol Hcl 40 Mg Tablet) 40 mg PO BID [facility]; Protocol Last Admin: 09/25/22 08:25 Dose: 40 mg Quetiapine Fumarate (Quetiapine Fumarate 100 Mg Tablet) 100 mg PO BEDTIME [facility] Last Admin: 09/24/22 18:40 Dose: 100 mg Thiamine HCl (Thiamine Hcl 100 Mg Tablet) 100 mg PO DAILY [facility] Last Admin: 09/25/22 08:24 Dose: 100 mg Trolamine Salicylate (Trolamine Salicylate 10 % Cream 85 Gm Tube) 1 appl TOPICAL BID [facility]; Protocol PRN Reason: Pain, Moderate (Pain Scale 4-6 Allergies Allergies Allergy/AdvReac Type Severity Reaction Status Date / Time No Known Allergies Allergy Verified 11/28/21 20:05 Assessment & Plan Assessment & Plan (1) MDD (major depressive disorder), recurrent episode, moderate: Status: Acute Code(s): F33.1 - Major depressive disorder, recurrent, moderate (2) Alcohol use disorder, moderate, dependence: Status: Acute Code(s): F10.20 - Alcohol dependence, uncomplicated (3) Cocaine use disorder, moderate, dependence: Status: Acute Code(s): F14.20 - Cocaine dependence, uncomplicated (4) Opioid use disorder, severe, on maintenance therapy: Status: Acute Code(s): F11.20 - Opioid dependence, uncomplicated (5) ADHD: Status: Acute Code(s): F90.9 - Attention-deficit hyperactivity disorder, unspecified type Plan 41 yo male, hx of recurrent major depression, IWONA, ADHD, PTSD, alcohol and cocaine use disorder, opioid use disorder on maintenance therapy s/p Trazodone overdose. Pt struggling with chronic homelessness, unable to find a program for longer team addiction treatment and stable therapist and medication provider. Pt with anemia-?chronic illness and substance abuse. Pt agreeable to re-establish regime, titrate and search for resources for ongoing care. Plan: Complete Phenobarbital taper Wellbutrin XL 300 mg a.m. Adderall XR 10 mg a.m. FeSO4 324 mg daily [facility] i tab daily 09/06/22: Continue current plan. 09/07/22: Clonidine 0.1 mg bid to address anxiety, assist with sleep quality. 09/08/22: Continue current plan of care. 09/09: Continue current Regimen and plans 09/10: Continue current regimen and plans 09/12/22 Continue current regime and plan of care. 09/15/22: Continue current regime and plan of care. Reports variable degrees of pain in fingers/hands RF, KAYLA, ESR 09/16/2022: No changes to current treatment plan 09/17/2022: No significant changes 09/18/22: Increase Lidocaine patch to BID 09/19/22: Continue current plan-interviews with residential treatment today pending results. 09/20/22 continue plan of care referrals for stepdown s/p recent suicide attempt 09/21 continue tx. 09/22/22: Discontinue Capciasin Ibuprofen 800 mg q8h prn shoulder pain Increase hydroxyzine to 50 mg prn 09/23: Continue current treatment plan. 09/24: Trial Aspercreme for shoulder pain. 09/25/22: Continue current regime. I spent minutes with the patient and/or on the patient floor today, greater than?50% of which was spent counseling/coordinating care. Patient educated on: therapeutic strategies Informed Consent: understands Reason for contiued inpatient stay Substantial Risk for: harm to self and rapid decompensation
[2022-09-25] MEDS: Ibuprofen 800 MG TABLET PO (18:36)
[2022-09-25] MEDS: QUEtiapine Fumarate 100 MG TABLET PO (18:37)
[2022-09-25 19:05] VITALS: BP 135/65; PULSE 80
[2022-09-26] MEDS: methADONE HCl 20 MG/2 ML ORAL.CONC 140 MG PO (07:58)
[2022-09-26] MEDS: Multivitamin TABLET 1 TAB PO (07:59)
[2022-09-26] MEDS: Escitalopram Oxalate 5 MG TABLET 15 MG PO (07:59)
[2022-09-26] MEDS: Thiamine HCL 100 MG TABLET PO (07:59)
[2022-09-26] MEDS: buPROPion HCl XL 300 MG TAB.ER.24H PO (07:59)
[2022-09-26] MEDS: Gabapentin 300 MG CAPSULE 600 MG PO ×3 (07:59→19:27)
[2022-09-26] MEDS: Propranolol HCL 40 MG TABLET PO ×2 (07:59→19:27)
[2022-09-26] MEDS: Ferrous Sulfate 324 MG TABLET.DR PO (07:59)
[2022-09-26] MEDS: Dextroamphetamine/Amphetamine XR 10 MG CAP.ER.24H 20 MG PO (08:00)
[2022-09-26] MEDS: cloNIDine HCL 0.2 MG TABLET PO ×2 (08:00→19:27)
[2022-09-26 08:10] VITALS: BP 132/88; PULSE 64; RESP 18; TEMP 36.2; O2SAT 97
[2022-09-26] MEDS: Lidocaine 4 % Patch ADH..PATCH 1 PATCH TRANSDERMA ×2 (12:04→19:28)
[2022-09-26] MEDS: Promethazine HCL 25 MG TABLET PO (12:04)
[2022-09-26] MEDS: hydrOXYzine HCL 50 MG TABLET PO (12:04)
[2022-09-26] MEDS: Ibuprofen 800 MG TABLET PO (12:05)
[2022-09-26 16:29] VITALS: BP 111/66; PULSE 66
--- NOTE | 2022-09-26 16:53 | P.PNPSI_ITS ---
Subjective Subjective Date of Service: 09/26/22 Reason For Visit: OD, depression Subjective Notes: Conditional Voluntary Healthcare Proxy: No Guardianship: No Interim History: Working on calling programs and organizing his efforts to get admitted for longer term addiction rehab. Reports regime to be tolerated, effective. Review of medications for pain mgt Medication Compliance: Yes Side effects from medications: No Attending Groups: Intermittent Review of Systems Acute medical concerns: No Medical Review of Systems: unchanged Mental Status Exam Mental Status Exam Patient Appearance: Appropriate Patient Orientation: Person, Place, Time and Situation Level of Consciousness: Alert Patient Behavior: Appropriate, Talkative, Cooperative and Good Eye Contact Mood Description: Apprehensive Affect Description: Apprehensive Patient Cognition Impaired: No Ability to Follow Directions: Good Speech Pattern: Spontaneous Speech Memory Description: Intact Hallucinations: None Delusions: Not Present Thought Process: Goal Oriented Thought Content: positive for Goal Oriented Depressive Symptoms: Low Self Esteem Judgement: Good Diagnostics Vital Signs (24Hr): Vital Signs - 24 hr 09/25/22 19:05 09/26/22 08:10 09/26/22 16:29 Temperature 97.1 F Pulse Rate 80 64 66 Respiratory Rate 18 Blood Pressure 135/65 132/88 111/66 Pulse Oximetry 97 Oxygen Delivery Method Room Air BMI result Body Mass Index 39.6 Labs Results: 09/06/22 08:35 Medications Medications Current Medications Acetaminophen (Acetaminophen 325 Mg Tablet) 650 mg PO Q6H PRN PRN Reason: Headache/Pain Mild Scale (1-3) Last Admin: 09/24/22 12:03 Dose: 650 mg Al Hydroxide/Mg Hydroxide (Magnesium Hydrox/Alum Hydrox 30 Ml Oral.Susp) 30 ml PO Q6H PRN PRN Reason: Heartburn/Nausea Last Admin: 09/20/22 20:43 Dose: 30 ml Amphetamine/Dextroamphetamine (Dextroamphetamine/Amphetamine Xr 10 Mg Cap.E r.24h) 20 mg PO DAILY [facility] Last Admin: 09/26/22 08:00 Dose: 20 mg Bupropion HCl (Bupropion Hcl Xl 300 Mg Tab.Er.24h) 300 mg PO DAILY [facility] Last Admin: 09/26/22 07:59 Dose: 300 mg Clonidine HCl (Clonidine Hcl 0.2 Mg Tablet) 0.2 mg PO BID [facility]; Protocol Last Admin: 09/26/22 08:00 Dose: 0.2 mg Escitalopram Oxalate (Escitalopram Oxalate 5 Mg Tablet) 15 mg PO DAILY [facility] Last Admin: 09/26/22 07:59 Dose: 15 mg Ferrous Sulfate (Ferrous Sulfate 324 Mg Tablet.Dr) 324 mg PO DAILY [facility] Last Admin: 09/26/22 07:59 Dose: 324 mg Gabapentin (Gabapentin 300 Mg Capsule) 600 mg PO TID [facility] Last Admin: 09/26/22 14:25 Dose: 600 mg Hydroxyzine HCl (Hydroxyzine Hcl 50 Mg Tablet) 50 mg PO Q6H PRN PRN Reason: Anxiety Last Admin: 09/26/22 12:04 Dose: 50 mg Ibuprofen (Ibuprofen 800 Mg Tablet) 800 mg PO Q8H PRN PRN Reason: Pain, Mild (Pain Scale 1-3) Last Admin: 09/26/22 12:05 Dose: 800 mg Lidocaine (Lidocaine 4 % Patch Adh..Patch) 1 patch TRANSDERMA BID [facility]; Protocol Last Admin: 09/26/22 12:04 Dose: 1 patch Magnesium Hydroxide (Milk Of Magnesia 30 Ml Oral.Susp) 30 ml PO DAILY PRN PRN Reason: Constipation Methadone HCl (Methadone Hcl 20 Mg/2 Ml Oral.Conc) 140 mg PO DAILY [facility] Last Admin: 09/26/22 07:58 Dose: 140 mg Multivitamins/Vitamin C (Multivitamin Tablet) 1 tab PO DAILY [facility] Last Admin: 09/26/22 07:59 Dose: 1 tab Naproxen (Naproxen 500 Mg Tablet) 500 mg PO Q12H PRN PRN Reason: Pain, Mild (Pain Scale 1-3) Ondansetron HCl (Ondansetron Hcl 4 Mg/2 Ml Vial) 4 mg IVPUSH Q8H PRN PRN Reason: Nausea and Vomiting Promethazine HCl (Promethazine Hcl 25 Mg Tablet) 25 mg PO TID PRN PRN Reason: Nausea And Vomiting Last Admin: 09/26/22 12:04 Dose: 25 mg Propranolol HCl (Propranolol Hcl 40 Mg Tablet) 40 mg PO BID [facility]; Protocol Last Admin: 09/26/22 07:59 Dose: 40 mg Quetiapine Fumarate (Quetiapine Fumarate 100 Mg Tablet) 100 mg PO BEDTIME [facility] Last Admin: 09/25/22 18:37 Dose: 100 mg Thiamine HCl (Thiamine Hcl 100 Mg Tablet) 100 mg PO DAILY [facility] Last Admin: 09/26/22 07:59 Dose: 100 mg Allergies Allergies Allergy/AdvReac Type Severity Reaction Status Date / Time capsaicin AdvReac Severe Burning Verified 09/26/22 16:34 sensation Assessment & Plan Assessment & Plan (1) MDD (major depressive disorder), recurrent episode, moderate: Status: Acute Code(s): F33.1 - Major depressive disorder, recurrent, moderate (2) Alcohol use disorder, moderate, dependence: Status: Acute Code(s): F10.20 - Alcohol dependence, uncomplicated (3) Cocaine use disorder, moderate, dependence: Status: Acute Code(s): F14.20 - Cocaine dependence, uncomplicated (4) Opioid use disorder, severe, on maintenance therapy: Status: Acute Code(s): F11.20 - Opioid dependence, uncomplicated (5) ADHD: Status: Acute Code(s): F90.9 - Attention-deficit hyperactivity disorder, unspecified type Plan 41 yo male, hx of recurrent major depression, IWONA, ADHD, PTSD, alcohol and ozzie rina use disorder, opioid use disorder on maintenance therapy s/p Trazodone overdose. Pt struggling with chronic homelessness, unable to find a program for longer team addiction treatment and stable therapist and medication provider. Pt with anemia-?chronic illness and substance abuse. Pt agreeable to re-establish regime, titrate and search for resources for ongoing care. Plan: Complete Phenobarbital taper Wellbutrin XL 300 mg a.m. Adderall XR 10 mg a.m. FeSO4 324 mg daily [facility] i tab daily 09/06/22: Continue current plan. 09/07/22: Clonidine 0.1 mg bid to address anxiety, assist with sleep quality. 09/08/22: Continue current plan of care. 09/09: Continue current Regimen and plans 09/10: Continue current regimen and plans 09/12/22 Continue current regime and plan of care. 09/15/22: Continue current regime and plan of care. Reports variable degrees of pain in fingers/hands RF, KAYLA, ESR 09/16/2022: No changes to current treatment plan 09/17/2022: No significant changes 09/18/22: Increase Lidocaine patch to BID 09/19/22: Continue current plan-interviews with residential treatment today pending results. 09/20/22 continue plan of care referrals for stepdown s/p recent suicide attempt 09/21 continue tx. 09/22/22: Discontinue Capciasin Ibuprofen 800 mg q8h prn shoulder pain Increase hydroxyzine to 50 mg prn 09/23: Continue current treatment plan. 09/24: Trial Aspercreme for shoulder pain. 09/25/22: Continue current regime. 09/26/22: Continue current regime. I spent minutes with the patient and/or on the patient floor today, greater than?50% of which was spent counseling/coordinating care. Patient educated on: therapeutic strategies Informed Consent: understands Reason for contiued inpatient stay Substantial Risk for: harm to self and rapid decompensation
[2022-09-26] MEDS: QUEtiapine Fumarate 100 MG TABLET PO (19:26)
[2022-09-27] MEDS: methADONE HCl 20 MG/2 ML ORAL.CONC 140 MG PO (08:33)
[2022-09-27] MEDS: Lidocaine 4 % Patch ADH..PATCH 1 PATCH TRANSDERMA ×2 (08:33→19:26)
[2022-09-27] MEDS: Multivitamin TABLET 1 TAB PO (08:34)
[2022-09-27] MEDS: Escitalopram Oxalate 5 MG TABLET 15 MG PO (08:34)
[2022-09-27] MEDS: Dextroamphetamine/Amphetamine XR 10 MG CAP.ER.24H 20 MG PO (08:34)
[2022-09-27] MEDS: Gabapentin 300 MG CAPSULE 600 MG PO ×3 (08:34→19:27)
[2022-09-27] MEDS: buPROPion HCl XL 300 MG TAB.ER.24H PO (08:34)
[2022-09-27] MEDS: Ferrous Sulfate 324 MG TABLET.DR PO (08:34)
[2022-09-27] MEDS: Thiamine HCL 100 MG TABLET PO (08:35)
[2022-09-27] MEDS: Propranolol HCL 40 MG TABLET PO ×2 (09:00→19:26)
[2022-09-27] MEDS: cloNIDine HCL 0.2 MG TABLET PO ×2 (09:00→19:30)
[2022-09-27 09:02] VITALS: BP 119/77; PULSE 60; RESP 18; TEMP 36.3; O2SAT 97
[2022-09-27] MEDS: hydrOXYzine HCL 50 MG TABLET PO ×2 (11:10→19:27)
[2022-09-27] MEDS: NaPROXEN 500 MG TABLET PO (11:10)
[2022-09-27] MEDS: Promethazine HCL 25 MG TABLET PO ×2 (11:10→19:28)
[2022-09-27 17:45] VITALS: PULSE 54; RESP 16; TEMP 36.5; O2SAT 96
--- NOTE | 2022-09-27 19:19 | P.PNPSI_ITS ---
Subjective Subjective Date of Service: 09/27/22 Reason For Visit: OD, depression Subjective Notes: Conditional Voluntary Healthcare Proxy: No Guardianship: No Medical Problems Affecting Mental Status: No Interim History: Reports much increase in anxiety. Program acceptance is taking a great deal of time-describes an increase in anxiety and apprehension Medication Compliance: Yes Side effects from medications: No Attending Groups: Intermittent Review of Systems Acute medical concerns: No Medical Review of Systems: unchanged Mental Status Exam Mental Status Exam Patient Appearance: Appropriate Patient Orientation: Person, Place, Time and Situation Level of Consciousness: Alert Patient Behavior: Appropriate, Talkative, Cooperative and Good Eye Contact Mood Description: Apprehensive Affect Description: Apprehensive Patient Cognition Impaired: No Ability to Follow Directions: Good Speech Pattern: Spontaneous Speech Memory Description: Intact Hallucinations: None Delusions: Not Present Thought Process: Goal Oriented Thought Content: positive for Goal Oriented Depressive Symptoms: Low Self Esteem Judgement: Good Diagnostics Vital Signs (24Hr): Vital Signs - 24 hr 09/27/22 09:02 09/27/22 17:45 Temperature 97.4 F 97.7 F Pulse Rate 60 54 Respiratory Rate 18 16 Blood Pressure 119/77 Pulse Oximetry 97 96 Oxygen Delivery Method Room Air Room Air BMI result Body Mass Index 39.6 Labs Results: 09/06/22 08:35 Medications Medications Current Medications Acetaminophen (Acetaminophen 325 Mg Tablet) 650 mg PO Q6H PRN PRN Reason: Headache/Pain Mild Scale (1-3) Last Admin: 09/24/22 12:03 Dose: 650 mg Al Hydroxide/Mg Hydroxide (Magnesium Hydrox/Alum Hydrox 30 Ml Oral.Susp) 30 ml PO Q6H PRN PRN Reason: Heartburn/Nausea Last Admin: 09/20/22 20:43 Dose: 30 ml Amphetamine/Dextroamphetamine (Dextroamphetamine/Amphetamine Xr 10 Mg C ap.Er.24h) 20 mg PO DAILY [facility] Last Admin: 09/27/22 08:34 Dose: 20 mg Bupropion HCl (Bupropion Hcl Xl 300 Mg Tab.Er.24h) 300 mg PO DAILY [facility] Last Admin: 09/27/22 08:34 Dose: 300 mg Clonidine HCl (Clonidine Hcl 0.2 Mg Tablet) 0.2 mg PO BID [facility]; Protocol Last Admin: 09/27/22 09:00 Dose: 0.2 mg Escitalopram Oxalate (Escitalopram Oxalate 5 Mg Tablet) 15 mg PO DAILY [facility] Last Admin: 09/27/22 08:34 Dose: 15 mg Ferrous Sulfate (Ferrous Sulfate 324 Mg Tablet.Dr) 324 mg PO DAILY [facility] Last Admin: 09/27/22 08:34 Dose: 324 mg Gabapentin (Gabapentin 300 Mg Capsule) 600 mg PO TID [facility] Last Admin: 09/27/22 14:33 Dose: 600 mg Hydroxyzine HCl (Hydroxyzine Hcl 50 Mg Tablet) 50 mg PO Q6H PRN PRN Reason: Anxiety Last Admin: 09/27/22 11:10 Dose: 50 mg Ibuprofen (Ibuprofen 800 Mg Tablet) 800 mg PO Q8H PRN PRN Reason: Pain, Mild (Pain Scale 1-3) Last Admin: 09/26/22 12:05 Dose: 800 mg Lidocaine (Lidocaine 4 % Patch Adh..Patch) 1 patch TRANSDERMA BID [facility]; Protocol Last Admin: 09/27/22 08:33 Dose: 1 patch Magnesium Hydroxide (Milk Of Magnesia 30 Ml Oral.Susp) 30 ml PO DAILY PRN PRN Reason: Constipation Methadone HCl (Methadone Hcl 20 Mg/2 Ml Oral.Conc) 140 mg PO DAILY [facility] Last Admin: 09/27/22 08:33 Dose: 140 mg Multivitamins/Vitamin C (Multivitamin Tablet) 1 tab PO DAILY [facility] Last Admin: 09/27/22 08:34 Dose: 1 tab Naproxen (Naproxen 500 Mg Tablet) 500 mg PO Q12H PRN PRN Reason: Pain, Mild (Pain Scale 1-3) Last Admin: 09/27/22 11:10 Dose: 500 mg Ondansetron HCl (Ondansetron Hcl 4 Mg/2 Ml Vial) 4 mg IVPUSH Q8H PRN PRN Reason: Nausea and Vomiting Promethazine HCl (Promethazine Hcl 25 Mg Tablet) 25 mg PO TID PRN PRN Reason: Nausea And Vomiting Last Admin: 09/27/22 11:10 Dose: 25 mg Propranolol HCl (Propranolol Hcl 40 Mg Tablet) 40 mg PO BID [facility]; Protocol Last Admin: 09/27/22 09:00 Dose: 40 mg Quetiapine Fumarate (Quetiapine Fumarate 100 Mg Tablet) 100 mg PO BEDTIME [facility] Last Admin: 09/26/22 19:26 Dose: 100 mg Thiamine HCl (Thiamine Hcl 100 Mg Tablet) 100 mg PO DAILY [facility] Last Admin: 09/27/22 08:35 Dose: 100 mg Allergies Allergies Allergy/AdvReac Type Severity Reaction Status Date / Time capsaicin AdvReac Severe Burning Verified 09/26/22 16:34 sensation Assessment & Plan Assessment & Plan (1) MDD (major depressive disorder), recurrent episode, moderate: Status: Acute Code(s): F33.1 - Major depressive disorder, recurrent, moderate (2) Alcohol use disorder, moderate, dependence: Status: Acute Code(s): F10.20 - Alcohol dependence, uncomplicated (3) Cocaine use disorder, moderate, dependence: Status: Acute Code(s): F14.20 - Cocaine dependence, uncomplicated (4) Opioid use disorder, severe, on maintenance therapy: Status: Acute Code(s): F11.20 - Opioid dependence, uncomplicated (5) ADHD: Status: Acute Code(s): F90.9 - Attention-deficit hyperactivity disorder, unspecified type Plan 41 yo male, hx of recurrent major depression, IWONA, ADHD, PTSD, alcohol and cocaine use disorder, opioid use disorder on maintenance therapy s/p Trazodone overdose. Pt struggling with chronic homelessness, unable to find a program for longer team addiction treatment and stable therapist and medication provider. Pt with anemia-?chronic illness and substance abuse. Pt agreeable to re-establish regime, titrate and search for resources for ongoing care. Plan: Complete Phenobarbital taper Wellbutrin XL 300 mg a.m. Adderall XR 10 mg a.m. FeSO4 324 mg daily [facility]VI i tab daily 09/06/22: Continue current plan. 09/07/22: Clonidine 0.1 mg bid to address anxiety, assist with sleep quality. 09/08/22: Continue current plan of care. 09/09: Continue current Regimen and plans 09/10: Continue current regimen and plans 09/12/22 Continue current regime and plan of care. 09/15/22: Continue current regime and plan of care. Reports variable degrees of pain in fingers/hands RF, KAYLA, ESR 09/16/2022: No changes to current treatment plan 09/17/2022: No significant changes 09/18/22: Increase Lidocaine patch to BID 09/19/22: Continue current plan-interviews with residential treatment today pending results. 09/20/22 continue plan of care referrals for stepdown s/p recent suicide attempt 09/21 continue tx. 09/22/22: Discontinue Capciasin Ibuprofen 800 mg q8h prn shoulder pain Increase hydroxyzine to 50 mg prn 09/23: Continue current treatment plan. 09/24: Trial Aspercreme for shoulder pain. 09/25/22: Continue current regime. 09/27/22: Increase Seroquel to 150 mg HS I spent minutes with the patient and/or on the patient floor today, greater than?50% of which was spent counseling/coordinating care. Patient educated on: medication risk/benefits and therapeutic strategies Informed Consent: understands and further education needed Reason for contiued inpatient stay Substantial Risk for: harm to self and rapid decompensation
[2022-09-27 19:20] VITALS: BP 115/70; PULSE 63; TEMP 35.7
[2022-09-27] MEDS: Ibuprofen 800 MG TABLET PO (19:29)
[2022-09-27] MEDS: QUEtiapine Fumarate 100 MG TABLET PO (19:31)
[2022-09-28] MEDS: Multivitamin TABLET 1 TAB PO (08:11)
[2022-09-28] MEDS: Dextroamphetamine/Amphetamine XR 10 MG CAP.ER.24H 20 MG PO (08:11)
[2022-09-28] MEDS: buPROPion HCl XL 300 MG TAB.ER.24H PO (08:11)
[2022-09-28] MEDS: Gabapentin 300 MG CAPSULE 600 MG PO ×3 (08:11→19:10)
[2022-09-28] MEDS: cloNIDine HCL 0.2 MG TABLET PO ×2 (08:11→19:09)
[2022-09-28] MEDS: Thiamine HCL 100 MG TABLET PO (08:11)
[2022-09-28] MEDS: methADONE HCl 20 MG/2 ML ORAL.CONC 140 MG PO (08:11)
[2022-09-28] MEDS: Ferrous Sulfate 324 MG TABLET.DR PO (08:11)
[2022-09-28] MEDS: Escitalopram Oxalate 5 MG TABLET 15 MG PO (08:11)
[2022-09-28] MEDS: Propranolol HCL 40 MG TABLET PO ×2 (08:12→19:09)
[2022-09-28 08:14] VITALS: BP 121/75; PULSE 64; RESP 18; TEMP 36.6; O2SAT 100
--- NOTE | 2022-09-28 10:49 | P.PNPSI_ITS ---
Subjective Subjective Date of Service: 09/28/22 Reason For Visit: OD, depression Subjective Notes: Conditional Voluntary Healthcare Proxy: No Guardianship: No Medical Problems Affecting Mental Status: No Interim History: Norbert continues to be diligent in his search for furthering his addictions treatment. Today, he reports no symptoms of concern. Seroquel increase to help with sleep and anxiety has been helpful thus far per pt report. Medication Compliance: Yes Side effects from medications: No Attending Groups: Intermittent Review of Systems Acute medical concerns: No Medical Review of Systems: unchanged Mental Status Exam Mental Status Exam Patient Appearance: Appropriate Patient Orientation: Person, Place, Time and Situation Level of Consciousness: Alert Patient Behavior: Appropriate, Talkative, Cooperative and Good Eye Contact Mood Description: Apprehensive Affect Description: Apprehensive Patient Cognition Impaired: No Ability to Follow Directions: Good Speech Pattern: Spontaneous Speech Memory Description: Intact Hallucinations: None Delusions: Not Present Thought Process: Goal Oriented Thought Content: positive for Goal Oriented Depressive Symptoms: Low Self Esteem Judgement: Good Diagnostics Vital Signs (24Hr): Vital Signs - 24 hr 09/27/22 17:45 09/27/22 19:20 09/28/22 08:14 Temperature 97.7 F 96.2 F L 97.8 F Pulse Rate 54 63 64 Respiratory Rate 16 18 Blood Pressure 115/70 121/75 Pulse Oximetry 96 100 Oxygen Delivery Method Room Air Room Air BMI result Body Mass Index 39.6 Labs Results: 09/06/22 08:35 Medications Medications Current Medications Acetaminophen (Acetaminophen 325 Mg Tablet) 650 mg PO Q6H PRN PRN Reason: Headache/Pain Mild Scale (1-3) Last Admin: 09/24/22 12:03 Dose: 650 mg Al Hydroxide/Mg Hydroxide (Magnesium Hydrox/Alum Hydrox 30 Ml Oral.Susp) 30 ml PO Q6H PRN PRN Reason: Heartburn/Nausea Last Admin: 09/20/22 20:43 Dose: 30 ml Amphetamine/Dextroamphetamine (Dextroamphetamine/Amphetamine Xr 10 Mg Cap.Er.24h) 20 mg PO DAILY [facility] Last Admin: 09/28/22 08:11 Dose: 20 mg Bupropion HCl (Bupropion Hcl Xl 300 Mg Tab.Er.24h) 300 mg PO DAILY [facility] Last Admin: 09/28/22 08:11 Dose: 300 mg Clonidine HCl (Clonidine Hcl 0.2 Mg Tablet) 0.2 mg PO BID [facility]; Protocol Last Admin: 09/28/22 08:11 Dose: 0.2 mg Escitalopram Oxalate (Escitalopram Oxalate 5 Mg Tablet) 15 mg PO DAILY [facility] Last Admin: 09/28/22 08:11 Dose: 15 mg Ferrous Sulfate (Ferrous Sulfate 324 Mg Tablet.Dr) 324 mg PO DAILY [facility] Last Admin: 09/28/22 08:11 Dose: 324 mg Gabapentin (Gabapentin 300 Mg Capsule) 600 mg PO TID [facility] Last Admin: 09/28/22 08:11 Dose: 600 mg Hydroxyzine HCl (Hydroxyzine Hcl 50 Mg Tablet) 50 mg PO Q6H PRN PRN Reason: Anxiety Last Admin: 09/27/22 19:27 Dose: 50 mg Ibuprofen (Ibuprofen 800 Mg Tablet) 800 mg PO Q8H PRN PRN Reason: Pain, Mild (Pain Scale 1-3) Last Admin: 09/27/22 19:29 Dose: 800 mg Lidocaine (Lidocaine 4 % Patch Adh..Patch) 1 patch TRANSDERMA BID [facility]; Protocol Last Admin: 09/28/22 10:21 Dose: Not Given Magnesium Hydroxide (Milk Of Magnesia 30 Ml Oral.Susp) 30 ml PO DAILY PRN PRN Reason: Constipation Methadone HCl (Methadone Hcl 20 Mg/2 Ml Oral.Conc) 140 mg PO DAILY [facility] Last Admin: 09/28/22 08:11 Dose: 140 mg Multivitamins/Vitamin C (Multivitamin Tablet) 1 tab PO DAILY [facility] Last Admin: 09/28/22 08:11 Dose: 1 tab Naproxen (Naproxen 500 Mg Tablet) 500 mg PO Q12H PRN PRN Reason: Pain, Mild (Pain Scale 1-3) Last Admin: 09/27/22 11:10 Dose: 500 mg Ondansetron HCl (Ondansetron Hcl 4 Mg/2 Ml Vial) 4 mg IVPUSH Q8H PRN PRN Reason: Nausea and Vomiting Promethazine HCl (Promethazine Hcl 25 Mg Tablet) 25 mg PO TID PRN PRN Reason: Nausea And Vomiting Last Admin: 09/27/22 19:28 Dose: 25 mg Propranolol HCl (Propranolol Hcl 40 Mg Tablet) 40 mg PO BID [facility]; Protocol Last Admin: 09/28/22 08:12 Dose: 40 mg Quetiapine Fumarate (Quetiapine Fumarate 50 Mg Tablet) 150 mg PO BEDTIME [facility] Last Admin: 09/27/22 23:12 Dose: Not Given Thiamine HCl (Thiamine Hcl 100 Mg Tablet) 100 mg PO DAILY [facility] Last Admin: 09/28/22 08:11 Dose: 100 mg Allergies Allergies Allergy/AdvReac Type Severity Reaction Status Date / Time capsaicin AdvReac Severe Burning Verified 09/26/22 16:34 sensation Assessment & Plan Assessment & Plan (1) MDD (major depressive disorder), recurrent episode, moderate: Status: Acute Code(s): F33.1 - Major depressive disorder, recurrent, moderate (2) Alcohol use disorder, moderate, dependence: Status: Acute Code(s): F10.20 - Alcohol dependence, uncomplicated (3) Cocaine use disorder, moderate, dependence: Status: Acute Code(s): F14.20 - Cocaine dependence, uncomplicated (4) Opioid use disorder, severe, on maintenance therapy: Status: Acute Code(s): F11.20 - Opioid dependence, uncomplicated (5) ADHD: Status: Acute Code(s): F90.9 - Attention-deficit hyperactivity disorder, unspecified type Plan 41 yo male, hx of recurrent major depression, IWONA, ADHD, PTSD, alcohol and cocaine use disorder, opioid use disorder on maintenance therapy s/p Trazodone overdose. Pt struggling with chronic homelessness, unable to find a program for longer team addiction treatment and stable therapist and medication provider. Pt with anemia-?chronic illness and substance abuse. Pt agreeable to re-establish regime, titrate and search for resources for ongoing care. Plan: Complete Phenobarbital taper Wellbutrin XL 300 mg a.m. Adderall XR 10 mg a.m. FeSO4 324 mg daily [facility] i tab daily 09/06/22: Continue current plan. 09/07/22: Clonidine 0.1 mg bid to address anxiety, assist with sleep quality. 09/08/22: Continue current plan of care. 09/09: Continue current Regimen and plans 09/10: Continue current regimen and plans 09/12/22 Continue current regime and plan of care. 09/15/22: Continue current regime and plan of care. Reports variable degrees of pain in fingers/hands RF, KAYLA, ESR 09/16/2022: No changes to current treatment plan 09/17/2022: No significant changes 09/18/22: Increase Lidocaine patch to BID 09/19/22: Continue current plan-interviews with residential treatment today pending results. 09/20/22 continue plan of care referrals for stepdown s/p recent suicide attempt 09/21 continue tx. 09/22/22: Discontinue Capciasin Ibuprofen 800 mg q8h prn shoulder pain Increase hydroxyzine to 50 mg prn 09/23: Continue current treatment plan. 09/24: Trial Aspercreme for shoulder pain. 09/25/22: Continue current regime. 09/28/22: No changes today. I spent minutes with the patient and/or on the patient floor today, greater than?50% of which was spent counseling/coordinating care. Informed Consent: understands Reason for contiued inpatient stay Substantial Risk for: harm to self and rapid decompensation
[2022-09-28] MEDS: Promethazine HCL 25 MG TABLET PO ×2 (11:59→19:10)
[2022-09-28] MEDS: NaPROXEN 500 MG TABLET PO (11:59)
[2022-09-28] MEDS: Lidocaine 4 % Patch ADH..PATCH 1 PATCH TRANSDERMA ×2 (11:59→19:09)
[2022-09-28] MEDS: hydrOXYzine HCL 50 MG TABLET PO ×2 (11:59→17:43)
[2022-09-28 18:00] VITALS: BP 122/75; PULSE 65; RESP 16; TEMP 36.1; O2SAT 96
[2022-09-28] MEDS: QUEtiapine Fumarate 50 MG TABLET 150 MG PO (19:09)
[2022-09-29 06:00] VITALS: BP 122/71; PULSE 70; RESP 14; TEMP 36.8; O2SAT 97
[2022-09-29] MEDS: methADONE HCl 20 MG/2 ML ORAL.CONC 140 MG PO (08:01)
[2022-09-29] MEDS: Gabapentin 300 MG CAPSULE 600 MG PO ×3 (08:03→19:48)
[2022-09-29] MEDS: Dextroamphetamine/Amphetamine XR 10 MG CAP.ER.24H 20 MG PO (08:03)
[2022-09-29] MEDS: Propranolol HCL 40 MG TABLET PO ×2 (08:03→19:48)
[2022-09-29] MEDS: Ferrous Sulfate 324 MG TABLET.DR PO (08:03)
[2022-09-29] MEDS: Thiamine HCL 100 MG TABLET PO (08:03)
[2022-09-29] MEDS: buPROPion HCl XL 300 MG TAB.ER.24H PO (08:03)
[2022-09-29] MEDS: Escitalopram Oxalate 5 MG TABLET 15 MG PO (08:03)
[2022-09-29] MEDS: cloNIDine HCL 0.2 MG TABLET PO ×2 (08:04→19:48)
[2022-09-29] MEDS: Multivitamin TABLET 1 TAB PO (08:56)
[2022-09-29] MEDS: Promethazine HCL 25 MG TABLET PO ×2 (11:20→19:48)
[2022-09-29] MEDS: hydrOXYzine HCL 50 MG TABLET PO (11:20)
[2022-09-29] MEDS: cloNIDine HCL 0.1 MG TABLET PO (12:32)
--- NOTE | 2022-09-29 18:11 | HO.PSYCHPN ---
Subjective Subjective Date of Service: 09/29/22 Reason For Visit: OD, depression Subjective Notes: Conditional Voluntary Healthcare Proxy: No Guardianship: No Medical Problems Affecting Mental Status: No Interim History: Norbert continues to call programs. States Lea Yousif sounded hopeful today. Discussed increase in anxiety with the long wait he has endured, stating he had not realized how difficult it was to admit to longer term addictions treatment. Medication Compliance: Yes Side effects from medications: No Attending Groups: Intermittent Review of Systems Acute medical concerns: No Medical Review of Systems: unchanged Mental Status Exam Mental Status Exam Patient Appearance: Appropriate Patient Orientation: Person, Place, Time and Situation Level of Consciousness: Alert Patient Behavior: Appropriate, Talkative, Cooperative and Good Eye Contact Mood Description: Anxious and Apprehensive Affect Description: Apprehensive Patient Cognition Impaired: No Ability to Follow Directions: Good Speech Pattern: Spontaneous Speech Memory Description: Intact Hallucinations: None Delusions: Not Present Thought Process: Goal Oriented Thought Content: positive for Goal Oriented Depressive Symptoms: Increased Anxiety and Low Self Esteem Judgement: Good Diagnostics Vital Signs (24Hr): Vital Signs - 24 hr 09/29/22 06:00 Temperature 98.2 F Pulse Rate 70 Respiratory Rate 14 Blood Pressure 122/71 Pulse Oximetry 97 Oxygen Delivery Method Room Air BMI result Body Mass Index 39.6 Labs Results: 09/06/22 08:35 Medications Medications Current Medications Acetaminophen (Acetaminophen 325 Mg Tablet) 650 mg PO Q6H PRN PRN Reason: Headache/Pain Mild Scale (1-3) Last Admin: 09/24/22 12:03 Dose: 650 mg Al Hydroxide/Mg Hydroxide (Magnesium Hydrox/Alum Hydrox 30 Ml Oral.Susp) 30 ml PO Q6H PRN PRN Reason: Heartburn/Nausea Last Admin: 09/20/22 20:43 Dose: 30 ml Amphetamine/Dextroamphetamine (Dextroamphetamine/Amphetamine Xr 10 Mg Cap.Er.24h) 20 mg PO DAILY [facility] Last Admin: 09/29/22 08:03 Dose: 20 mg Bupropion HCl (Bupropion Hcl Xl 300 Mg Tab.Er.24h) 300 mg PO DAILY [facility] Last Admin: 09/29/22 08:03 Dose: 300 mg Clonidine HCl (Clonidine Hcl 0.2 Mg Tablet) 0.2 mg PO BID [facility]; Protocol Last Admin: 09/29/22 08:04 Dose: 0.2 mg Clonidine HCl (Clonidine Hcl 0.1 Mg Tablet) 0.1 mg PO 1300 [facility]; Protocol Last Admin: 09/29/22 12:32 Dose: 0.1 mg Escitalopram Oxalate (Escitalopram Oxalate 5 Mg Tablet) 15 mg PO DAILY [facility] Last Admin: 09/29/22 08:03 Dose: 15 mg Ferrous Sulfate (Ferrous Sulfate 324 Mg Tablet.Dr) 324 mg PO DAILY [facility] Last Admin: 09/29/22 08:03 Dose: 324 mg Gabapentin (Gabapentin 300 Mg Capsule) 600 mg PO TID [facility] Last Admin: 09/29/22 14:28 Dose: 600 mg Hydroxyzine HCl (Hydroxyzine Hcl 50 Mg Tablet) 50 mg PO Q6H PRN PRN Reason: Anxiety Last Admin: 09/29/22 11:20 Dose: 50 mg Ibuprofen (Ibuprofen 800 Mg Tablet) 800 mg PO Q8H PRN PRN Reason: Pain, Mild (Pain Scale 1-3) Last Admin: 09/27/22 19:29 Dose: 800 mg Lidocaine (Lidocaine 4 % Patch Adh..Patch) 1 patch TRANSDERMA BID [facility]; Protocol Last Admin: 09/29/22 08:56 Dose: Not Given Magnesium Hydroxide (Milk Of Magnesia 30 Ml Oral.Susp) 30 ml PO DAILY PRN PRN Reason: Constipation Methadone HCl (Methadone Hcl 20 Mg/2 Ml Oral.Conc) 140 mg PO DAILY [facility] Last Admin: 09/29/22 08:01 Dose: 140 mg Multivitamins/Vitamin C (Multivitamin Tablet) 1 tab PO DAILY [facility] Last Admin: 09/29/22 08:56 Dose: 1 tab Naproxen (Naproxen 500 Mg Tablet) 500 mg PO Q12H PRN PRN Reason: Pain, Mild (Pain Scale 1-3) Last Admin: 09/28/22 11:59 Dose: 500 mg Ondansetron HCl (Ondansetron Hcl 4 Mg/2 Ml Vial) 4 mg IVPUSH Q8H PRN PRN Reason: Nausea and Vomiting Promethazine HCl (Promethazine Hcl 25 Mg Tablet) 25 mg PO TID PRN PRN Reason: Nausea And Vomiting Last Admin: 09/29/22 11:20 Dose: 25 mg Propranolol HCl (Propranolol Hcl 40 Mg Tablet) 40 mg PO BID [facility]; Protocol Last Admin: 09/29/22 08:03 Dose: 40 mg Quetiapine Fumarate (Quetiapine Fumarate 50 Mg Tablet) 150 mg PO BEDTIME [facility] Last Admin: 09/28/22 19:09 Dose: 150 mg Thiamine HCl (Thiamine Hcl 100 Mg Tablet) 100 mg PO DAILY [facility] Last Admin: 09/29/22 08:03 Dose: 100 mg Allergies Allergies Allergy/AdvReac Type Severity Reaction Status Date / Time capsaicin AdvReac Severe Burning Verified 09/26/22 16:34 sensation Assessment & Plan Assessment & Plan (1) MDD (major depressive disorder), recurrent episode, moderate: Status: Acute Code(s): F33.1 - Major depressive disorder, recurrent, moderate (2) Alcohol use disorder, moderate, dependence: Status: Acute Code(s): F10.20 - Alcohol dependence, uncomplicated (3) Cocaine use disorder, moderate, dependence: Status: Acute Code(s): F14.20 - Cocaine dependence, uncomplicated (4) Opioid use disorder, severe, on maintenance therapy: Status: Acute Code(s): F11.20 - Opioid dependence, uncomplicated (5) ADHD: Status: Acute Code(s): F90.9 - Attention-deficit hyperactivity disorder, unspecified type Plan 41 yo male, hx of recurrent major depression, IWONA, ADHD, PTSD, alcohol and cocaine use disorder, opioid use disorder on maintenance therapy s/p Trazodone overdose. Pt struggling with chronic homelessness, unable to find a program for longer team addiction treatment and stable therapist and medication provider. Pt with anemia-?chronic illness and substance abuse. Pt agreeable to re-establish regime, titrate and search for resources for ongoing care. Plan: Complete Phenobarbital taper Wellbutrin XL 300 mg a.m. Adderall XR 10 mg a.m. FeSO4 324 mg daily [facility] i tab daily 09/06/22: Continue current plan. 09/07/22: Clonidine 0.1 mg bid to address anxiety, assist with sleep quality. 09/08/22: Continue current plan of care. 09/09: Continue current Regimen and plans 09/10: Continue current regimen and plans 09/12/22 Continue current regime and plan of care. 09/15/22: Continue current regime and plan of care. Reports variable degrees of pain in fingers/hands RF, KAYLA, ESR 09/16/2022: No changes to current treatment plan 09/17/2022: No significant changes 09/18/22: Increase Lidocaine patch to BID 09/19/22: Continue current plan-interviews with residential treatment today pending results. 09/20/22 continue plan of care referrals for stepdown s/p recent suicide attempt 09/21 continue tx. 09/22/22: Discontinue Capciasin Ibuprofen 800 mg q8h prn shoulder pain Increase hydroxyzine to 50 mg prn 09/23: Continue current treatment plan. 09/24: Trial Aspercreme for shoulder pain. 09/25/22: Continue current regime. 09/28/22: No changes today. 09/29/22: Add Clonidine 0.1 mg at 1300 for anxiety mgt. I spent minutes with the patient and/or on the patient floor today, greater than?50% of which was spent counseling/coordinating care. Patient educated on: medication risk/benefits and therapeutic strategies Informed Consent: understands and further education needed Reason for contiued inpatient stay Substantial Risk for: harm to self and rapid decompensation
[2022-09-29 19:45] VITALS: BP 123/76; PULSE 65; RESP 16; TEMP 36; O2SAT 97
[2022-09-29] MEDS: QUEtiapine Fumarate 50 MG TABLET 150 MG PO (19:48)
[2022-09-29] MEDS: NaPROXEN 500 MG TABLET PO (19:48)
--- NOTE | 2022-09-30 07:32 | HO.PSYCHPN ---
Subjective Subjective Date of Service: 09/30/22 Reason For Visit: OD, depression Subjective Notes: Conditional Voluntary Healthcare Proxy: No Guardianship: No Medical Problems Affecting Mental Status: No Interim History: I am fine doc Medication Compliance: Yes Side effects from medications: No Review of Systems Acute medical concerns: No Medical Review of Systems: unchanged Mental Status Exam Mental Status Exam Patient Appearance: Appropriate Patient Orientation: Person, Place, Time and Situation Level of Consciousness: Alert Patient Behavior: Appropriate, Talkative, Cooperative and Good Eye Contact Mood Description: Anxious and Apprehensive Affect Description: Apprehensive Patient Cognition Impaired: No Ability to Follow Directions: Good Speech Pattern: Spontaneous Speech Memory Description: Intact Hallucinations: None Delusions: Not Present Thought Process: Goal Oriented Thought Content: positive for Goal Oriented Depressive Symptoms: Increased Anxiety and Low Self Esteem Judgement: Good Diagnostics Vital Signs (24Hr): Vital Signs - 24 hr 09/29/22 19:45 Temperature 96.8 F Pulse Rate 65 Respiratory Rate 16 Blood Pressure 123/76 Pulse Oximetry 97 Oxygen Delivery Method Room Air BMI result Body Mass Index 39.6 Labs Results: 09/06/22 08:35 Medications Medications Current Medications Acetaminophen (Acetaminophen 325 Mg Tablet) 650 mg PO Q6H PRN PRN Reason: Headache/Pain Mild Scale (1-3) Last Admin: 09/24/22 12:03 Dose: 650 mg Al Hydroxide/Mg Hydroxide (Magnesium Hydrox/Alum Hydrox 30 Ml Oral.Susp) 30 ml PO Q6H PRN PRN Reason: Heartburn/Nausea Last Admin: 09/20/22 20:43 Dose: 30 ml Amphetamine/Dextroamphetamine (Dextroamphetamine/Amphetamine Xr 10 Mg Cap.Er.24h) 20 mg PO DAILY [facility] Last Admin: 09/29/22 08:03 Dose: 20 mg Bupropion HCl (Bupropion Hcl Xl 300 Mg Tab.Er.24h) 300 mg PO DAILY [facility] Last Admin: 09/29/22 08:03 Dose: 300 mg Clonidine HCl (Clonidine Hcl 0.2 Mg Tablet) 0.2 mg PO BID [facility]; Protocol Last Admin: 09/29/22 19:48 Dose: 0.2 mg Clonidine HCl (Clonidine Hcl 0.1 Mg Tablet) 0.1 mg PO 1300 [facility]; Protocol Last Admin: 09/29/22 12:32 Dose: 0.1 mg Escitalopram Oxalate (Escitalopram Oxalate 5 Mg Tablet) 15 mg PO DAILY [facility] Last Admin: 09/29/22 08:03 Dose: 15 mg Ferrous Sulfate (Ferrous Sulfate 324 Mg Tablet.Dr) 324 mg PO DAILY [facility] Last Admin: 09/29/22 08:03 Dose: 324 mg Gabapentin (Gabapentin 300 Mg Capsule) 600 mg PO TID [facility] Last Admin: 09/29/22 19:48 Dose: 600 mg Hydroxyzine HCl (Hydroxyzine Hcl 50 Mg Tablet) 50 mg PO Q6H PRN PRN Reason: Anxiety Last Admin: 09/29/22 11:20 Dose: 50 mg Ibuprofen (Ibuprofen 800 Mg Tablet) 800 mg PO Q8H PRN PRN Reason: Pain, Mild (Pain Scale 1-3) Last Admin: 09/27/22 19:29 Dose: 800 mg Lidocaine (Lidocaine 4 % Patch Adh..Patch) 1 patch TRANSDERMA BID [facility]; Protocol Last Admin: 09/29/22 19:50 Dose: Not Given Magnesium Hydroxide (Milk Of Magnesia 30 Ml Oral.Susp) 30 ml PO DAILY PRN PRN Reason: Constipation Methadone HCl (Methadone Hcl 20 Mg/2 Ml Oral.Conc) 140 mg PO DAILY [facility] Last Admin: 09/29/22 08:01 Dose: 140 mg Multivitamins/Vitamin C (Multivitamin Tablet) 1 tab PO DAILY [facility] Last Admin: 09/29/22 08:56 Dose: 1 tab Naproxen (Naproxen 500 Mg Tablet) 500 mg PO Q12H PRN PRN Reason: Pain, Mild (Pain Scale 1-3) Last Admin: 09/29/22 19:48 Dose: 500 mg Ondansetron HCl (Ondansetron Hcl 4 Mg/2 Ml Vial) 4 mg IVPUSH Q8H PRN PRN Reason: Nausea and Vomiting Promethazine HCl (Promethazine Hcl 25 Mg Tablet) 25 mg PO TID PRN PRN Reason: Nausea And Vomiting Last Admin: 09/29/22 19:48 Dose: 25 mg Propranolol HCl (Propranolol Hcl 40 Mg Tablet) 40 mg PO BID [facility]; Protocol Last Admin: 09/29/22 19:48 Dose: 40 mg Quetiapine Fumarate (Quetiapine Fumarate 50 Mg Tablet) 150 mg PO BEDTIME [facility] Last Admin: 09/29/22 19:48 Dose: 150 mg Thiamine HCl (Thiamine Hcl 100 Mg Tablet) 100 mg PO DAILY [facility] Last Admin: 09/29/22 08:03 Dose: 100 mg Allergies Allergies Allergy/AdvReac Type Severity Reaction Status Date / Time capsaicin AdvReac Severe Burning Verified 09/26/22 16:34 sensation Assessment & Plan Assessment & Plan (1) MDD (major depressive disorder), recurrent episode, moderate: Status: Acute Code(s): F33.1 - Major depressive disorder, recurrent, moderate Assessment and Plan: better by pt report (2) Alcohol use disorder, moderate, dependence: Status: Acute Code(s): F10.20 - Alcohol dependence, uncomplicated Assessment and Plan: no withdrawl at this point (3) Cocaine use disorder, moderate, dependence: Status: Acute Code(s): F14.20 - Cocaine dependence, uncomplicated (4) Opioid use disorder, severe, on maintenance therapy: Status: Acute Code(s): F11.20 - Opioid dependence, uncomplicated Assessment and Plan: stable on MAT (5) ADHD: Status: Acute Code(s): F90.9 - Attention-deficit hyperactivity disorder, unspecified type Plan 41 yo male, hx of recurrent major depression, IWONA, ADHD, PTSD, alcohol and cocaine use disorder, opioid use disorder on maintenance therapy s/p Trazodone overdose. Pt struggling with chronic homelessness, unable to find a program for longer team addiction treatment and stable therapist and medication provider. Pt with anemia-?chronic illness and substance abuse. Pt agreeable to re-establish regime, titrate and search for resources for ongoing care. Plan: Complete Phenobarbital taper Wellbutrin XL 300 mg a.m. Adderall XR 10 mg a.m. FeSO4 324 mg daily [facility]VI i tab daily 09/06/22: Continue current plan. 09/07/22: Clonidine 0.1 mg bid to address anxiety, assist with sleep quality. 09/08/22: Continue current plan of care. 09/09: Continue current Regimen and plans 09/10: Continue current regimen and plans 09/12/22 Continue current regime and plan of care. 09/15/22: Continue current regime and plan of care. Reports variable degrees of pain in fingers/hands RF, KAYLA, ESR 09/16/2022: No changes to current treatment plan 09/17/2022: No significant changes 09/18/22: Increase Lidocaine patch to BID 09/19/22: Continue current plan-interviews with residential treatment today pending results. 09/20/22 continue plan of care referrals for stepdown s/p recent suicide attempt 09/21 continue tx. 09/22/22: Discontinue Capciasin Ibuprofen 800 mg q8h prn shoulder pain Increase hydroxyzine to 50 mg prn 09/23: Continue current treatment plan. 09/24: Trial Aspercreme for shoulder pain. 09/25/22: Continue current regime. 09/28/22: No changes today. 09/29/22: Add Clonidine 0.1 mg at 1300 for anxiety mgt. I spent minutes with the patient and/or on the patient floor today, greater than?50% of which was spent counseling/coordinating care. Patient educated on: medication risk/benefits, substance abuse and therapeutic strategies Informed Consent: understands Reason for contiued inpatient stay Substantial Risk for: rapid decompensation
[2022-09-30] MEDS: methADONE HCl 20 MG/2 ML ORAL.CONC 140 MG PO (08:46)
[2022-09-30] MEDS: Gabapentin 300 MG CAPSULE 600 MG PO ×3 (08:47→21:33)
[2022-09-30] MEDS: Escitalopram Oxalate 5 MG TABLET 15 MG PO (08:47)
[2022-09-30] MEDS: Dextroamphetamine/Amphetamine XR 10 MG CAP.ER.24H 20 MG PO (08:48)
[2022-09-30] MEDS: buPROPion HCl XL 300 MG TAB.ER.24H PO (08:48)
[2022-09-30] MEDS: cloNIDine HCL 0.2 MG TABLET PO ×2 (08:48→21:33)
[2022-09-30] MEDS: Ferrous Sulfate 324 MG TABLET.DR PO (08:48)
[2022-09-30] MEDS: Multivitamin TABLET 1 TAB PO (08:48)
[2022-09-30] MEDS: Propranolol HCL 40 MG TABLET PO ×2 (08:48→21:33)
[2022-09-30] MEDS: Thiamine HCL 100 MG TABLET PO (08:48)
[2022-09-30 09:00] VITALS: BP 139/87; PULSE 63; RESP 18; TEMP 36.6; O2SAT 99
[2022-09-30] MEDS: NaPROXEN 500 MG TABLET PO (11:38)
[2022-09-30] MEDS: hydrOXYzine HCL 50 MG TABLET PO (11:42)
[2022-09-30] MEDS: Promethazine HCL 25 MG TABLET PO (11:42)
[2022-09-30] MEDS: cloNIDine HCL 0.1 MG TABLET PO (14:11)
[2022-09-30 21:31] VITALS: BP 130/75; PULSE 66; RESP 15; O2SAT 96
[2022-09-30] MEDS: QUEtiapine Fumarate 50 MG TABLET 150 MG PO (21:33)
[2022-10-01 07:47] VITALS: BP 121/65; PULSE 88; RESP 16; TEMP 36; O2SAT 99
[2022-10-01] MEDS: cloNIDine HCL 0.2 MG TABLET PO ×2 (07:52→19:36)
[2022-10-01] MEDS: Multivitamin TABLET 1 TAB PO (07:52)
[2022-10-01] MEDS: Thiamine HCL 100 MG TABLET PO (07:52)
[2022-10-01] MEDS: Propranolol HCL 40 MG TABLET PO ×2 (07:52→19:35)
[2022-10-01] MEDS: buPROPion HCl XL 300 MG TAB.ER.24H PO (07:52)
[2022-10-01] MEDS: methADONE HCl 20 MG/2 ML ORAL.CONC 140 MG PO (07:53)
[2022-10-01] MEDS: Ferrous Sulfate 324 MG TABLET.DR PO (07:53)
[2022-10-01] MEDS: Gabapentin 300 MG CAPSULE 600 MG PO ×3 (07:53→19:35)
[2022-10-01] MEDS: Dextroamphetamine/Amphetamine XR 10 MG CAP.ER.24H 20 MG PO (07:53)
[2022-10-01] MEDS: Escitalopram Oxalate 5 MG TABLET 15 MG PO (07:53)
--- NOTE | 2022-10-01 09:40 | HO.PSYCHPN ---
Subjective Subjective Date of Service: 10/01/22 Reason For Visit: OD, depression Subjective Notes: Conditional Voluntary Healthcare Proxy: No Guardianship: No Medical Problems Affecting Mental Status: No Interim History: Pt reports continue to be stable- some anxiety uses coping of drawing sleep eat ok - no cravings or withdrawl - told me about incident with gf overdosing Medication Compliance: Yes Side effects from medications: No Attending Groups: Yes Review of Systems Acute medical concerns: No emr won't let me check lidocaine patch to prn- he refused patch this am Mental Status Exam Mental Status Exam Patient Appearance: Appropriate Patient Orientation: Person, Place, Time and Situation Level of Consciousness: Alert Patient Behavior: Appropriate, Talkative, Cooperative and Good Eye Contact Mood Description: Anxious and Apprehensive Affect Description: Apprehensive Patient Cognition Impaired: No Ability to Follow Directions: Good Speech Pattern: Spontaneous Speech Memory Description: Intact Hallucinations: None Delusions: Not Present Thought Process: Goal Oriented Thought Content: positive for Goal Oriented Depressive Symptoms: Increased Anxiety and Low Self Esteem Judgement: Good Diagnostics Vital Signs (24Hr): Vital Signs - 24 hr 09/30/22 21:31 10/01/22 07:47 Temperature 96.8 F Pulse Rate 66 88 Respiratory Rate 15 16 Blood Pressure 130/75 121/65 Pulse Oximetry 96 99 Oxygen Delivery Method Room Air Room Air BMI result Body Mass Index 39.6 Labs Results: 09/06/22 08:35 Medications Medications Current Medications Acetaminophen (Acetaminophen 325 Mg Tablet) 650 mg PO Q6H PRN PRN Reason: Headache/Pain Mild Scale (1-3) Last Admin: 09/24/22 12:03 Dose: 650 mg Al Hydroxide/Mg Hydroxide (Magnesium Hydrox/Alum Hydrox 30 Ml Oral.Susp) 30 ml PO Q6H PRN PRN Reason: Heartburn/Nausea Last Admin: 09/20/22 20:43 Dose: 30 ml Amphetamine/Dextroamphetamine (Dextroamphetamine/Amphetamine Xr 10 Mg Cap.Er.24h) 20 mg PO DAILY [facility] Last Admin: 10/01/22 07:53 Dose: 20 mg Bupropion HCl (Bupropion Hcl Xl 300 Mg Tab.Er.24h) 300 mg PO DAILY [facility] Last Admin: 10/01/22 07:52 Dose: 300 mg Clonidine HCl (Clonidine Hcl 0.2 Mg Tablet) 0.2 mg PO BID [facility]; Protocol Last Admin: 12/04/22 07:52 Dose: 0.2 mg Clonidine HCl (Clonidine Hcl 0.1 Mg Tablet) 0.1 mg PO 1300 [facility]; Protocol Last Admin: 09/30/22 14:11 Dose: 0.1 mg Escitalopram Oxalate (Escitalopram Oxalate 5 Mg Tablet) 15 mg PO DAILY [facility] Last Admin: 10/01/22 07:53 Dose: 15 mg Ferrous Sulfate (Ferrous Sulfate 324 Mg Tablet.Dr) 324 mg PO DAILY [facility] Last Admin: 10/01/22 07:53 Dose: 324 mg Gabapentin (Gabapentin 300 Mg Capsule) 600 mg PO TID [facility] Last Admin: 10/01/22 07:53 Dose: 600 mg Hydroxyzine HCl (Hydroxyzine Hcl 50 Mg Tablet) 50 mg PO Q6H PRN PRN Reason: Anxiety Last Admin: 09/30/22 11:42 Dose: 50 mg Ibuprofen (Ibuprofen 800 Mg Tablet) 800 mg PO Q8H PRN PRN Reason: Pain, Mild (Pain Scale 1-3) Last Admin: 09/27/22 19:29 Dose: 800 mg Lidocaine (Lidocaine 4 % Patch Adh..Patch) 1 patch TRANSDERMA BID [facility]; Protocol Last Admin: 09/30/22 21:35 Dose: Not Given Magnesium Hydroxide (Milk Of Magnesia 30 Ml Oral.Susp) 30 ml PO DAILY PRN PRN Reason: Constipation Methadone HCl (Methadone Hcl 20 Mg/2 Ml Oral.Conc) 140 mg PO DAILY [facility] Last Admin: 10/01/22 07:53 Dose: 140 mg Multivitamins/Vitamin C (Multivitamin Tablet) 1 tab PO DAILY [facility] Last Admin: 10/01/22 07:52 Dose: 1 tab Naproxen (Naproxen 500 Mg Tablet) 500 mg PO Q12H PRN PRN Reason: Pain, Mild (Pain Scale 1-3) Last Admin: 09/30/22 11:38 Dose: 500 mg Promethazine HCl (Promethazine Hcl 25 Mg Tablet) 25 mg PO TID PRN PRN Reason: Nausea And Vomiting Last Admin: 09/30/22 11:42 Dose: 25 mg Propranolol HCl (Propranolol Hcl 40 Mg Tablet) 40 mg PO BID [facility]; Protocol Last Admin: 10/01/22 07:52 Dose: 40 mg Quetiapine Fumarate (Quetiapine Fumarate 50 Mg Tablet) 150 mg PO BEDTIME [facility] Last Admin: 09/30/22 21:33 Dose: 150 mg Thiamine HCl (Thiamine Hcl 100 Mg Tablet) 100 mg PO DAILY [facility] Last Admin: 10/01/22 07:52 Dose: 100 mg Allergies Allergies Allergy/AdvReac Type Severity Reaction Status Date / Time capsaicin AdvReac Severe Burning Verified 09/26/22 16:34 sensation Assessment & Plan Assessment & Plan (1) MDD (major depressive disorder), recurrent episode, moderate: Status: Acute Code(s): F33.1 - Major depressive disorder, recurrent, moderate Assessment and Plan: better by pt report (2) Alcohol use disorder, moderate, dependence: Status: Acute Code(s): F10.20 - Alcohol dependence, uncomplicated Assessment and Plan: no withdrawl at this point (3) Cocaine use disorder, moderate, dependence: Status: Acute Code(s): F14.20 - Cocaine dependence, uncomplicated (4) Opioid use disorder, severe, on maintenance therapy: Status: Acute Code(s): F11.20 - Opioid dependence, uncomplicated Assessment and Plan: stable on MAT (5) ADHD: Status: Acute Code(s): F90.9 - Attention-deficit hyperactivity disorder, unspecified type Plan 41 yo male, hx of recurrent major depression, IWONA, ADHD, PTSD, alcohol and cocaine use disorder, opioid use disorder on maintenance therapy s/p Trazodone overdose. Pt struggling with chronic homelessness, unable to find a program for longer team addiction treatment and stable therapist and medication provider. Pt with anemia-?chronic illness and substance abuse. Pt agreeable to re-establish regime, titrate and search for resources for ongoing care. Plan: Complete Phenobarbital taper Wellbutrin XL 300 mg a.m. Adderall XR 10 mg a.m. FeSO4 324 mg daily [facility] i tab daily 09/06/22: Continue current plan. 09/07/22: Clonidine 0.1 mg bid to address anxiety, assist with sleep quality. 09/08/22: Continue current plan of care. 09/09: Continue current Regimen and plans 09/10: Continue current regimen and plans 09/12/22 Continue current regime and plan of care. 09/15/22: Continue current regime and plan of care. Reports variable degrees of pain in fingers/hands RF, KAYLA, ESR 09/16/2022: No changes to current treatment plan 09/17/2022: No significant changes 09/18/22: Increase Lidocaine patch to BID 09/19/22: Continue current plan-interviews with residential treatment today pending results. 09/20/22 continue plan of care referrals for stepdown s/p recent suicide attempt 09/21 continue tx. 09/22/22: Discontinue Capciasin Ibuprofen 800 mg q8h prn shoulder pain Increase hydroxyzine to 50 mg prn 09/23: Continue current treatment plan. 09/24: Trial Aspercreme for shoulder pain. 09/25/22: Continue current regime. 09/28/22: No changes today. 09/29/22: Add Clonidine 0.1 mg at 1300 for anxiety mgt. I spent minutes with the patient and/or on the patient floor today, greater than?50% of which was spent counseling/coordinating care. Patient educated on: therapeutic strategies Informed Consent: understands Reason for contiued inpatient stay Substantial Risk for: rapid decompensation
[2022-10-01] MEDS: hydrOXYzine HCL 50 MG TABLET PO ×2 (11:55→19:37)
[2022-10-01] MEDS: Promethazine HCL 25 MG TABLET PO ×2 (11:55→19:37)
[2022-10-01] MEDS: cloNIDine HCL 0.1 MG TABLET PO (14:26)
[2022-10-01 18:30] VITALS: BP 125/75; PULSE 57; RESP 16; TEMP 36.3; O2SAT 97
[2022-10-01] MEDS: QUEtiapine Fumarate 50 MG TABLET 150 MG PO (19:36)
[2022-10-01] MEDS: NaPROXEN 500 MG TABLET PO (19:36)
[2022-10-02 06:00] VITALS: BP 123/70; PULSE 60; RESP 16; TEMP 36.7; O2SAT 97
[2022-10-02] MEDS: methADONE HCl 20 MG/2 ML ORAL.CONC 140 MG PO (08:11)
[2022-10-02] MEDS: Dextroamphetamine/Amphetamine XR 10 MG CAP.ER.24H 20 MG PO (08:12)
[2022-10-02] MEDS: Escitalopram Oxalate 5 MG TABLET 15 MG PO (08:12)
[2022-10-02] MEDS: cloNIDine HCL 0.2 MG TABLET PO ×2 (08:12→19:29)
[2022-10-02] MEDS: Thiamine HCL 100 MG TABLET PO (08:13)
[2022-10-02] MEDS: buPROPion HCl XL 300 MG TAB.ER.24H PO (08:13)
[2022-10-02] MEDS: Ferrous Sulfate 324 MG TABLET.DR PO (08:13)
[2022-10-02] MEDS: Gabapentin 300 MG CAPSULE 600 MG PO ×3 (08:13→19:30)
[2022-10-02] MEDS: Propranolol HCL 40 MG TABLET PO ×2 (08:13→19:30)
[2022-10-02] MEDS: Multivitamin TABLET 1 TAB PO (08:52)
[2022-10-02] MEDS: Promethazine HCL 25 MG TABLET PO (11:15)
[2022-10-02] MEDS: hydrOXYzine HCL 50 MG TABLET PO ×2 (11:15→19:30)
[2022-10-02] MEDS: cloNIDine HCL 0.1 MG TABLET PO (14:25)
[2022-10-02] MEDS: Ibuprofen 800 MG TABLET PO (14:26)
[2022-10-02 14:27] VITALS: BP 116/70; PULSE 63
--- NOTE | 2022-10-02 17:28 | P.PNPSI_ITS ---
Subjective Subjective Date of Service: 10/02/22 Reason For Visit: OD, depression Subjective Notes: Conditional Voluntary Healthcare Proxy: No Guardianship: No Medical Problems Affecting Mental Status: No Interim History: Preparing for discharge, tentative acceptance for 10/04/22. Today, review of meds- they work I think . Will titrate Adderall to 30 mg daily (hx of 40 mg), as well as review of precipitant to admission. Discussed having had some time on M5 to think about his attempt and his life, what he wants for himself and distress tolerance in the future without suicide attempts. Medication Compliance: Yes Side effects from medications: No Attending Groups: Intermittent Review of Systems Acute medical concerns: No Medical Review of Systems: unchanged Mental Status Exam Mental Status Exam Patient Appearance: Appropriate Patient Orientation: Person, Place, Time and Situation Level of Consciousness: Alert Patient Behavior: Talkative, Cooperative and Good Eye Contact Mood Description: Appropriate Affect Description: Appropriate Patient Cognition Impaired: No Ability to Follow Directions: Good Speech Pattern: Spontaneous Speech Memory Description: Intact Hallucinations: None Delusions: Not Present Thought Process: Intact and Goal Oriented Thought Content: positive for Intact and positive for Goal Oriented Depressive Symptoms: Increased Anxiety Judgement: Good Diagnostics Vital Signs (24Hr): Vital Signs - 24 hr 10/01/22 18:30 10/02/22 06:00 10/02/22 14:27 Temperature 97.4 F 98.1 F Pulse Rate 57 60 63 Respiratory Rate 16 16 Blood Pressure 125/75 123/70 116/70 Pulse Oximetry 97 97 Oxygen Delivery Method Room Air Room Air BMI result Body Mass Index 39.6 Labs Results: 09/06/22 08:35 Medications Medications Current Medications Acetaminophen (Acetaminophen 325 Mg Tablet) 650 mg PO Q6H PRN PRN Reason: Headache/Pain Mild Scale (1-3) Last Admin: 09/24/22 12:03 Dose: 650 mg Al Hydroxide/Mg Hydroxide (Magnesium Hydrox/Alum Hydrox 30 Ml Oral.Susp) 30 ml PO Q6H PRN PRN Reason: Heartburn/Nausea Last Admin: 09/20/22 20:43 Dose: 30 ml Amphetamine/Dextroamphetamine (Dextroamphetamine/Amphetamine Xr 10 Mg Cap.Er.24h ) 30 mg PO DAILY [facility] Bupropion HCl (Bupropion Hcl Xl 300 Mg Tab.Er.24h) 300 mg PO DAILY [facility] Last Admin: 10/02/22 08:13 Dose: 300 mg Clonidine HCl (Clonidine Hcl 0.2 Mg Tablet) 0.2 mg PO BID [facility]; Protocol Last Admin: 10/02/22 08:12 Dose: 0.2 mg Clonidine HCl (Clonidine Hcl 0.1 Mg Tablet) 0.1 mg PO 1300 [facility]; Protocol Last Admin: 10/02/22 14:25 Dose: 0.1 mg Escitalopram Oxalate (Escitalopram Oxalate 5 Mg Tablet) 15 mg PO DAILY [facility] Last Admin: 10/02/22 08:12 Dose: 15 mg Ferrous Sulfate (Ferrous Sulfate 324 Mg Tablet.Dr) 324 mg PO DAILY [facility] Last Admin: 10/02/22 08:13 Dose: 324 mg Gabapentin (Gabapentin 300 Mg Capsule) 600 mg PO TID [facility] Last Admin: 10/02/22 14:25 Dose: 600 mg Hydroxyzine HCl (Hydroxyzine Hcl 50 Mg Tablet) 50 mg PO Q6H PRN PRN Reason: Anxiety Last Admin: 10/02/22 11:15 Dose: 50 mg Ibuprofen (Ibuprofen 800 Mg Tablet) 800 mg PO Q8H PRN PRN Reason: Pain, Mild (Pain Scale 1-3) Last Admin: 10/02/22 14:26 Dose: 800 mg Lidocaine (Lidocaine 4 % Patch Adh..Patch) 1 patch TRANSDERMA BID [facility]; Protocol Last Admin: 10/02/22 08:32 Dose: Not Given Magnesium Hydroxide (Milk Of Magnesia 30 Ml Oral.Susp) 30 ml PO DAILY PRN PRN Reason: Constipation Methadone HCl (Methadone Hcl 20 Mg/2 Ml Oral.Conc) 140 mg PO DAILY [facility] Last Admin: 10/02/22 08:11 Dose: 140 mg Multivitamins/Vitamin C (Multivitamin Tablet) 1 tab PO DAILY [facility] Last Admin: 10/02/22 08:52 Dose: 1 tab Naproxen (Naproxen 500 Mg Tablet) 500 mg PO Q12H PRN PRN Reason: Pain, Mild (Pain Scale 1-3) Last Admin: 10/01/22 19:36 Dose: 500 mg Promethazine HCl (Promethazine Hcl 25 Mg Tablet) 25 mg PO TID PRN PRN Reason: Nausea And Vomiting Last Admin: 10/02/22 11:15 Dose: 25 mg Propranolol HCl (Propranolol Hcl 40 Mg Tablet) 40 mg PO BID [facility]; Protocol Last Admin: 10/02/22 08:13 Dose: 40 mg Quetiapine Fumarate (Quetiapine Fumarate 50 Mg Tablet) 150 mg PO BEDTIME [facility] Last Admin: 10/01/22 19:36 Dose: 150 mg Thiamine HCl (Thiamine Hcl 100 Mg Tablet) 100 mg PO DAILY [facility] Last Admin: 10/02/22 08:13 Dose: 100 mg Allergies Allergies Allergy/AdvReac Type Severity Reaction Status Date / Time capsaicin AdvReac Severe Burning Verified 09/26/22 16:34 sensation Assessment & Plan Assessment & Plan (1) MDD (major depressive disorder), recurrent episode, moderate: Status: Acute Code(s): F33.1 - Major depressive disorder, recurrent, moderate Assessment and Plan: better by pt report (2) Alcohol use disorder, moderate, dependence: Status: Acute Code(s): F10.20 - Alcohol dependence, uncomplicated Assessment and Plan: no withdrawl at this point (3) Cocaine use disorder, moderate, dependence: Status: Acute Code(s): F14.20 - Cocaine dependence, uncomplicated (4) Opioid use disorder, severe, on maintenance therapy: Status: Acute Code(s): F11.20 - Opioid dependence, uncomplicated Assessment and Plan: stable on MAT (5) ADHD: Status: Acute Code(s): F90.9 - Attention-deficit hyperactivity disorder, unspecified type Plan 41 yo male, hx of recurrent major depression, IWONA, ADHD, PTSD, alcohol and cocaine use disorder, opioid use disorder on maintenance therapy s/p Trazodone overdose. Pt struggling with chronic homelessness, unable to find a program for longer team addiction treatment and stable therapist and medication provider. Pt with anemia-?chronic illness and substance abuse. Pt agreeable to re-establish regime, titrate and search for resources for ongoing care. Plan: Complete Phenobarbital taper Wellbutrin XL 300 mg a.m. Adderall XR 10 mg a.m. FeSO4 324 mg daily [facility] i tab daily 09/06/22: Continue current plan. 09/07/22: Clonidine 0.1 mg bid to address anxiety, assist with sleep quality. 09/08/22: Continue current plan of care. 09/09: Continue current Regimen and plans 09/10: Continue current regimen and plans 09/12/22 Continue current regime and plan of care. 09/15/22: Continue current regime and plan of care. Reports variable degrees of pain in fingers/hands RF, KAYLA, ESR 09/16/2022: No changes to current treatment plan 09/17/2022: No significant changes 09/18/22: Increase Lidocaine patch to BID 09/19/22: Continue current plan-interviews with residential treatment today pending results. 09/20/22 continue plan of care referrals for stepdown s/p recent suicide attempt 09/21 continue tx. 09/22/22: Discontinue Capciasin Ibuprofen 800 mg q8h prn shoulder pain Increase hydroxyzine to 50 mg prn 09/23: Continue current treatment plan. 09/24: Trial Aspercreme for shoulder pain. 09/25/22: Continue current regime. 09/28/22: No changes today. 09/29/22: Add Clonidine 0.1 mg at 1300 for anxiety mgt. 10/02/22: Increase Adderall to 30 mg daily Discharge 10/04/22 I spent minutes with the patient and/or on the patient floor today, greater than?50% of which was spent counseling/coordinating care. Patient educated on: medication risk/benefits and therapeutic strategies Informed Consent: understands Reason for contiued inpatient stay Substantial Risk for: rapid decompensation
[2022-10-02] MEDS: QUEtiapine Fumarate 50 MG TABLET 150 MG PO (19:29)
[2022-10-02] MEDS: NaPROXEN 500 MG TABLET PO (19:29)
[2022-10-02 19:30] VITALS: BP 111/70; PULSE 64; RESP 16; TEMP 36.3
[2022-10-03] MEDS: Thiamine HCL 100 MG TABLET PO (08:15)
[2022-10-03] MEDS: Multivitamin TABLET 1 TAB PO (08:15)
[2022-10-03] MEDS: Dextroamphetamine/Amphetamine XR 10 MG CAP.ER.24H 30 MG PO (08:15)
[2022-10-03] MEDS: methADONE HCl 20 MG/2 ML ORAL.CONC 140 MG PO (08:15)
[2022-10-03] MEDS: buPROPion HCl XL 300 MG TAB.ER.24H PO (08:15)
[2022-10-03] MEDS: Escitalopram Oxalate 5 MG TABLET 15 MG PO (08:16)
[2022-10-03] MEDS: Propranolol HCL 40 MG TABLET PO (08:16)
[2022-10-03] MEDS: Gabapentin 300 MG CAPSULE 600 MG PO (08:16)
[2022-10-03] MEDS: cloNIDine HCL 0.2 MG TABLET PO (08:16)
[2022-10-03] MEDS: Ferrous Sulfate 324 MG TABLET.DR PO (08:16)
[2022-10-03 08:18] VITALS: TEMP 36.3
[2022-10-03 08:19] VITALS: BP 127/76; PULSE 64; RESP 18; TEMP 36.3; O2SAT 97
[2022-10-03 09:00] LABS: MANUAL DIFF FLAG NO
[2022-10-03 09:05] LABS: Basophils Percent Auto 0.5 % (0-2); Eosinophils Absolute Auto 0.2 X10*3/uL (0.0-0.4); Eosinophils Percent Auto 3.6 % (0-4); Hematocrit 41.1 % (42.0-52.0); Hemoglobin 14.8 g/dl (14.0-18.0); Imm Gran Abs Auto 0.02 X10*3/uL (0.00-0.03); Imm Gran Pct Auto 0.3 % (0.0-0.4); Lymphocytes Absolute Auto 1.9 X10*3/uL (1.2-4.9); Lymphocytes Percent Auto 32.9 % (20-40); Mean Corpuscular Hemoglobin 30.8 pg (27.0-33.0); Mean Corpuscular Volume 85.4 fL (80.0-98.0); Mean Platelet Volume 11.6 fL (9.4-12.4); Monocytes Absolute Auto 0.5 X10*3/uL (0.1-1.2); Monocytes Percent Auto 7.8 % (2-11); Neutrophils Absolute Auto 3.2 x10*3/uL (2.0-8.3); Neutrophils Percent Auto 54.9 % (45-73); Red Blood Count 4.81 X10*6/uL (4.60-5.80); Red Cell Distribution Width 13.1 % (11.0-16.0); White Blood Count 5.8 X10*3/uL (4.8-10.8)
[2022-10-03 09:07] LABS: Platelet Count 86 X10*3/uL (160-400)
[2022-10-03] MEDS: Lidocaine 4 % Patch ADH..PATCH 1 PATCH TRANSDERMA (09:18)
[2022-10-03] MEDS: NaPROXEN 500 MG TABLET PO (09:19)
[2022-10-03] MEDS: hydrOXYzine HCL 25 MG TABLET 50 MG PO (09:28)
[2022-10-03] MEDS: Naloxone HCl Nasal TAKE HOME 4 MG SPRAY NOSTRILALT (09:29)
--- NOTE | 2022-11-03 16:10 | P.DS_ITS ---
DS: Providers Provider Date of Service: 10/03/22 Date of admission: 09/04/22 20:29 Date of discharge: 10/03/22 Primary care physician: Unknown Physician Admitting clinician: Cathie Blake Attending physician on admission: Martin Loredo Consults: 09/05/22 08:46 Addiction Medicine Routine Consulting Provider: Addiction Covering Reason for consultation: pooly sub found obtonede Consult for Sitter Routine Reason for consultation: tried to overdose on trazodone 09/19/22 11:08 Consult to Hospitalist Routine Consulting Provider: Hospitalist Reason For Exam: L shoulder,index,middle,ring finger pain-text sent Attending physician on discharge: Martin Loredo Discharging clinician: Cathie Blake DS: Diagnosis Discharge Diagnosis (1) MDD (major depressive disorder), recurrent episode, moderate: Status: Acute (2) Alcohol use disorder, moderate, dependence: Status: Resolved (3) Cocaine use disorder, moderate, dependence: Status: Resolved (4) Opioid use disorder, severe, on maintenance therapy: Status: Acute (5) ADHD: Status: Acute DS: Medications Discharge Medications Home Medications: Previous Rx's Medication Instructions Recorded acetaminophen 325 mg tablet 650 mg PO Q6H PRN Headache/Pain 10/03/22 Mild Scale (1-3) #0 tabs aluminum-magnesium hydroxide 200 30 ml PO Q6H PRN Heartburn/Nausea 10/03/22 mg-200 mg/5 mL oral suspension #0 mL (MAG-AL) bupropion HCl 300 mg 24 hr tablet, 300 mg PO DAILY 30 days #30 tabs 10/03/22 extended release clonidine HCl 0.1 mg tablet 0.1 mg PO 1300 30 days #30 tabs 10/03/22 clonidine HCl 0.2 mg tablet 0.2 mg PO BID 30 days #60 tabs 10/03/22 dextroamphetamine-amphetamine ER 30 mg PO DAILY 30 days #30 caps 10/03/22 30 mg 24hr capsule,extend release escitalopram oxalate 5 mg tablet 15 mg PO DAILY 30 days #90 tabs 10/03/22 ferrous sulfate 324 mg (65 mg 324 mg PO DAILY 30 days #30 tabs 10/03/22 iron) tablet,delayed release gabapentin 600 mg tablet 600 mg PO TID 30 days #90 tabs 10/03/22 hydroxyzine HCl 50 mg tablet 50 mg PO Q6H PRN Anxiety 30 days 10/03/22 #60 tabs magnesium hydroxide 400 mg/5 mL 30 ml PO DAILY PRN Constipation #0 10/03/22 oral suspension (Milk of Magnesia) mL methadone 10 mg/mL oral 140 mg (14 mL) PO DAILY #0 mL 10/03/22 concentrate (Methadose) multivitamin (Daily-Haily tablet) 1 tab PO DAILY 30 days #30 tabs 10/03/22 naproxen 500 mg tablet 500 mg PO Q12H PRN Pain, Mild 10/03/22 (Pain Scale 1-3) 30 days #60 tabs promethazine 25 mg tablet 25 mg PO TID PRN Nausea And 10/03/22 Vomiting 30 days #60 tabs propranolol 40 mg tablet 40 mg PO BID 30 days #60 tabs 10/03/22 quetiapine 150 mg tablet 150 mg PO BEDTIME 30 days #30 tabs 10/03/22 thiamine HCl (vitamin B1) 100 mg 100 mg PO DAILY 30 days #30 tabs 10/03/22 tablet (Vitamin B-1) quetiapine 150 mg tablet 150 mg PO BEDTIME #30 tabs 10/24/22 bupropion HCl 300 mg 24 hr tablet, 300 mg PO QAM #7 tabs 10/27/22 extended release (Wellbutrin XL) clonidine HCl 0.1 mg tablet 0.1 mg PO .1pm #7 tabs 10/27/22 clonidine HCl 0.2 mg tablet 0.2 mg PO BID #14 tabs 10/27/22 escitalopram oxalate 10 mg tablet 15 mg PO DAILY #11 tabs 10/27/22 (Lexapro) ferrous sulfate 324 mg (65 mg 324 mg PO DAILY #7 tabs 10/27/22 iron) tablet,delayed release gabapentin 600 mg tablet 600 mg PO TID #21 tabs 10/27/22 multivitamin 1 tab PO DAILY #7 tabs 10/27/22 thiamine HCl (vitamin B1) 100 mg 50 mg PO DAILY #7 tabs 10/27/22 tablet Mental Status Exam Mental Status Exam Patient Appearance: Appropriate Patient Orientation: Person, Place, Time and Situation Level of Consciousness: Alert Patient Behavior: Talkative, Cooperative and Good Eye Contact Mood Description: Appropriate Affect Description: Appropriate Patient Cognition Impaired: No Ability to Follow Directions: Good Speech Pattern: Spontaneous Speech Memory Description: Intact Hallucinations: None Delusions: Not Present Thought Process: Intact and Goal Oriented Thought Content: positive for Intact and positive for Goal Oriented Depressive Symptoms: Increased Anxiety Judgement: Good DS: Summary Hospital Course Hospital Course: Admission to adult psychiatry for exacerbation of symptoms of depression, adhd and alcohol, cocaine and opiate use disorder. Pt asked for assist to admit to [facility]. This was completed. Medications were stabilized, Wellbutrin Clonidine, Adderall, Lexapro, Gabapentin, Propranolol and Seroquel. Methadone was maintained and pt was transitioned to [facility] for ongoing addiction treatment. Time spent discussing smoking cessation with patient: 3 to 10 minutes Status at Discharge Functional status at discharge: independent ambulation Overall status at discharge: patient is progressing back to baseline Time Spent with Patient Time attestation: Total time managing care of this patient today __35__ minutes. Time spent: Greater than 30 minutes Discharge Plan Discharge Anticipated Discharge Date/Time: 10/03/22 10:00 Patient Disposition: Fpc Discharge Diagnosis: MDD, moderate, recurrent Referrals: Physician,Unknown J [Primary Care Provider] - 1 Week Discharge Medications: New ferrous sulfate 324 mg (65 mg iron) Tablet,Delayed Release (Dr/Ec) 324 mg PO DAILY 30 Days Qty: 30 0RF clonidine HCl 0.1 mg Tablet 0.1 mg PO 1300 30 Days Qty: 30 0RF Protocol: Hold for SBP< HOLD for SBP < : 90 clonidine HCl 0.2 mg Tablet 0.2 mg PO BID 30 Days Qty: 60 0RF Protocol: Hold for SBP< HOLD for SBP < : 90 escitalopram oxalate 5 mg Tablet 15 mg PO DAILY 30 Days Qty: 90 0RF gabapentin 600 mg tablet 600 mg PO TID 30 Days Qty: 90 0RF quetiapine 150 mg tablet 150 mg PO BEDTIME 30 Days Qty: 30 0RF acetaminophen 325 mg Tablet 650 mg PO Q6H PRN (Reason: Headache/Pain Mild Scale (1-3)) Qty: 0 0RF bupropion HCl 300 mg Tablet Extended Release 24 Hr 300 mg PO DAILY 30 Days Qty: 30 0RF dextroamphetamine-amphetamine 30 mg capsule,extended release 24hr 30 mg PO DAILY 30 Days Qty: 30 0RF Rx Instructions: Partial Fill upon patient request. hydroxyzine HCl 50 mg Tablet 50 mg PO Q6H PRN (Reason: Anxiety) 30 Days Qty: 60 0RF methadone [Methadose] 10 mg/mL Concentrate 140 mg PO DAILY Qty: 0 0RF Rx Instructions: Partial Fill upon patient request. naproxen 500 mg Tablet 500 mg PO Q12H PRN (Reason: Pain, Mild (Pain Scale 1-3)) 30 Days Qty: 60 0RF magnesium hydroxide [Milk of Magnesia] 400 mg/5 mL Suspension 30 ml PO DAILY PRN (Reason: Constipation) Qty: 0 0RF MAG-AL 200-200 mg/5 mL Suspension 30 ml PO Q6H PRN (Reason: Heartburn/Nausea) Qty: 0 0RF multivitamin [Daily-Haily] Tablet 1 tab PO DAILY 30 Days Qty: 30 0RF quetiapine 150 mg tablet 150 mg PO BEDTIME Qty: 30 0RF bupropion HCl [Wellbutrin XL] 300 mg tablet extended release 24 hr 300 mg PO QAM Qty: 7 4RF clonidine HCl 0.1 mg tablet 0.1 mg PO .1pm Qty: 7 4RF clonidine HCl 0.2 mg tablet 0.2 mg PO BID Qty: 14 4RF escitalopram oxalate [Lexapro] 10 mg tablet 15 mg PO DAILY Qty: 11 4RF ferrous sulfate 324 mg (65 mg iron) tablet,delayed release (DR/EC) 324 mg PO DAILY Qty: 7 4RF gabapentin 600 mg tablet 600 mg PO TID Qty: 21 4RF multivitamin Tablet 1 tab PO DAILY Qty: 7 4RF thiamine HCl (vitamin B1) 100 mg tablet 50 mg PO DAILY Qty: 7 4RF Continued thiamine HCl (vitamin B1) [Vitamin B-1] 100 mg tablet 100 mg PO DAILY 30 Days Qty: 30 0RF Changed propranolol 40 mg tablet 40 mg PO BID 30 Days Qty: 60 0RF promethazine 25 mg tablet 25 mg PO TID PRN (Reason: Nausea And Vomiting) 30 Days Qty: 60 0RF Discontinued methadone 10 mg Tablet 140 mg PO DAILY bupropion HCl 150 mg tablet sustained-release 12 hr 150 mg PO BID Qty: 30 1RF gabapentin 400 mg capsule 800 mg PO TID Qty: 42 1RF quetiapine 100 mg tablet 1 tab PO BEDTIME escitalopram oxalate 10 mg tablet 1 tab PO DAILY Discharge Orders: Discharge Order (Routine); Ordered 09/05/22 Ordered By: Joann Caicedo Diet: Regular diet Activity on Discharge: As tolerated Stand Alone Forms: Patient Portal Discharge page, Community Support Care Plan Goals: Maintain mood and safe behaviors Take medications as prescribed Continue to pursue sobriety Practice coping skills Continue with outpatient providers and reach out to them as needed Health Concerns: Mood stability and behaviors Sobriety Hx of Thrombocytopenia Plan of Treatment: Follow up with your PCP, psychiatric provider and other outpatient providers regarding above concerns Take medications as prescribed Assessment: Risk assessment at time of discharge:? Patient was interviewed prior to discharge and found to be fully oriented and without any SI or HI. Patient has insight and demonstrates good judgment in terms of wanting to pursue treatment. Patient is not in imminent risk of harm to self or others and has a safety plan that includes presenting to the closest ER or calling 911 if feeling unsafe.? Patient has been observed closely by nursing and unit staff throughout admission; patient has not engaged in any behaviors that suggest dangerousness to self or others and has demonstrated appropriate behaviors and impulse control Discharge Date/Time: 10/03/22 10:30
== END 2022-10-03 10:30 | disposition home or self-care (01) | DRG 751 ==
PROVIDERS: Registered Nurse; Admitting Provider Psychiatry & Neurology Psychiatry; Visit Provider Clinical Nurse Specialist Psychiatric/Mental Health, Adult
DX: F33.1 Major depressive disorder, recurrent, moderate (principal); R45.851 Suicidal ideations; F10.20 Alcohol dependence, uncomplicated; F14.20 Cocaine dependence, uncomplicated; F11.21 Opioid dependence, in remission; F41.1 Generalized anxiety disorder; F43.10 Post-traumatic stress disorder, unspecified; F90.9 Attention-deficit hyperactivity disorder, unspecified type; Z59.02 Unsheltered homelessness; Z87.891 Personal history of nicotine dependence; Z56.0 Unemployment, unspecified; Z79.899 Other long term (current) drug therapy
CPT/HCPCS: 36415; 80061; 82607; 82746; 83036; 83735; 84439; 84443; 85025; 85027; 85652; 86038; 86039; 86431; 90792

== ENCOUNTER 2023-02-11 09:34 | Inpatient (IN) | payer OTHER, SELFPAY ==
[2023-02-11 09:40] VITALS: BP 118/70; PULSE 75; RESP 18; TEMP 36.7; O2SAT 95; BMI 33.9
--- NOTE | 2023-02-11 11:12 | ED_ITS ---
HPI - Psych General Chief Complaint: Psychiatric Symptoms Stated Complaint: crisis Time Seen by Provider: 02/11/23 11:05 Source: patient Mode of arrival: ambulatory Limitations: no limitations History of Present Illness HPI Narrative: This is a 42-year-old male who has a history of polysubstance abuse, depression who presents the ER with complaints of feeling suicidal with no plan. Patient reports he was kicked out of his TSS program on as he was caught vaping and hoarding food in his room. Since then patient tells me he has been using crack/heroin. Patient feels that he needs to have inpatient psych care. He is taking his psychiatric medications and denies any missed doses. He denies HI, hallucinations. No physical complaints Related Data Previous Rx's Medication Instructions Recorded acetaminophen 325 mg tablet 650 mg PO Q6H PRN Headache/Pain 10/03/22 Mild Scale (1-3) #0 tabs aluminum-magnesium hydroxide 200 30 ml PO Q6H PRN Heartburn/Nausea 10/03/22 mg-200 mg/5 mL oral suspension #0 mL (MAG-AL) bupropion HCl 300 mg 24 hr tablet, 300 mg PO DAILY 30 days #30 tabs 10/03/22 extended release clonidine HCl 0.1 mg tablet 0.1 mg PO 1300 30 days #30 tabs 10/03/22 clonidine HCl 0.2 mg tablet 0.2 mg PO BID 30 days #60 tabs 10/03/22 dextroamphetamine-amphetamine ER 30 mg PO DAILY 30 days #30 caps 10/03/22 30 mg 24hr capsule,extend release escitalopram oxalate 5 mg tablet 15 mg PO DAILY 30 days #90 tabs 10/03/22 ferrous sulfate 324 mg (65 mg 324 mg PO DAILY 30 days #30 tabs 10/03/22 iron) tablet,delayed release gabapentin 600 mg tablet 600 mg PO TID 30 days #90 tabs 10/03/22 hydroxyzine HCl 50 mg tablet 50 mg PO Q6H PRN Anxiety 30 days 10/03/22 #60 tabs magnesium hydroxide 400 mg/5 mL 30 ml PO DAILY PRN Constipation #0 10/03/22 oral suspension (Milk of Magnesia) mL methadone 10 mg/mL oral 140 mg (14 mL) PO DAILY #0 mL 10/03/22 concentrate (Methadose) multivitamin (Daily-Haily tablet) 1 tab PO DAILY 30 days #30 tabs 10/03/22 naproxen 500 mg tablet 500 mg PO Q12H PRN Pain, Mild 10/03/22 (Pain Scale 1-3) 30 days #60 tabs promethazine 25 mg tablet 25 mg PO TID PRN Nausea And 10/03/22 Vomiting 30 days #60 tabs propranolol 40 mg tablet 40 mg PO BID 30 days #60 tabs 10/03/22 quetiapine 150 mg tablet 150 mg PO BEDTIME 30 days #30 tabs 10/03/22 thiamine HCl (vitamin B1) 100 mg 100 mg PO DAILY 30 days #30 tabs 10/03/22 tablet (Vitamin B-1) quetiapine 150 mg tablet 150 mg PO BEDTIME #30 tabs 10/24/22 bupropion HCl 300 mg 24 hr tablet, 300 mg PO QAM #7 tabs 10/27/22 extended release (Wellbutrin XL) clonidine HCl 0.1 mg tablet 0.1 mg PO .1pm #7 tabs 10/27/22 clonidine HCl 0.2 mg tablet 0.2 mg PO BID #14 tabs 10/27/22 escitalopram oxalate 10 mg tablet 15 mg PO DAILY #11 tabs 10/27/22 (Lexapro) ferrous sulfate 324 mg (65 mg 324 mg PO DAILY #7 tabs 10/27/22 iron) tablet,delayed release gabapentin 600 mg tablet 600 mg PO TID #21 tabs 10/27/22 multivitamin 1 tab PO DAILY #7 tabs 10/27/22 thiamine HCl (vitamin B1) 100 mg 50 mg PO DAILY #7 tabs 10/27/22 tablet Allergies Allergy/AdvReac Type Severity Reaction Status Date / Time capsaicin AdvReac Severe Burning Verified 02/11/23 09:45 sensation Review of Systems Review of Systems: Yes all other systems are reviewed and are negative Constitutional: Constitutional: Reports no additional constitutional complaints, Denies body ache(s), Denies chills, Denies fever(s), Denies headache(s) and Denies weakness Eyes: Eyes: Reports no additional eye complaints and Denies change in vision ENT: Reports system reviewed and no additional complaints, except as documented, Denies dizziness, Denies headache(s), Denies nasal congestion, Denies nasal discharge and Denies neck pain Cardiovascular: Cardiovascular: Reports no additional cardiovascular complaints, Denies chest pain, Denies leg edema and Denies dyspnea Respiratory: Respiratory: Reports no additional respiratory complaints, Denies cough and Denies dyspnea Gastrointestinal: Gastrointestinal: Reports no additional gastrointestinal complaints, Denies abdominal pain, Denies diarrhea, Denies nausea and Denies vomiting Genitourinary: Genitourinary: Denies urinary incontinence Musculoskeletal: Musculoskeletal: Reports no additional musculoskeletal complaints, Denies back pain, Denies arthralgias, Denies joint swelling, Denies neck pain, Denies numbness and Denies tingling Integumentary/Breasts: Skin/Breast: Reports system reviewed and no additional complaints, except as docu and Denies rash Neurologic: Reports system reviewed and no additional complaints, except as documented, Denies Abnormal speech present, Denies dizziness, Denies headache(s), Denies numbness, Denies tingling and Denies weakness Psychiatric: Psychiatric: Reports depression and Reports suicidal ideation PMFSH Past Medical History Attestation statement: The following information was validated with the patient. Source: old records reviewed and nursing notes reviewed Medical History ADHD Opioid use disorder, severe, on maintenance therapy Social History Social History Household Members: None Housing: House Do you presently have visiting nurse or other home services: No Alcohol intake: current Alcohol intake frequency: 3 or more drinks per day Alcohol type: hard liquor Patient Tobacco Use Status: Former Tobacco user e-Cigarette/Vaping Use: Never Used Substance Use Type: Crack/Cocaine Advance Directives: No Advance Directives Information Provided: No service: No Current occupational status: unemployed Sexual orientation: Straight/Heterosexual Physical Exam Vital Signs: Vital Signs: Last Vital Signs Temp 98.1 F 02/11/23 09:40 Pulse 66 02/11/23 11:20 Resp 18 02/11/23 09:40 BP 105/74 02/11/23 11:20 Pulse Ox 95 02/11/23 09:40 O2 Del Method Room Air 02/11/23 09:40 BMI result Body Mass Index 33.9 Const: General: cooperative, healthy appearing, comfortable and no acute distress Orientation/consciousness: patient oriented x3 Limitations: no limitations HEENT: Head: Yes normal to inspection Ears: hearing grossly normal bilaterally General nose exam: Normal external nose present Face and s inus: Yes normal facial exam Mouth: Normal oral and palatal mucosa present Throat: Yes posterior oropharynx normal Eyes: General: appearance normal, both eyes and all related structures Pupils: Equal, round and reactive pupils present Neck: Neck: Yes normal visual inspection Chest: Chest palpation & inspection: normal inspection of the chest Resp: Effort & Inspection: normal respiratory effort Auscultation: clear to auscultation bilaterally Cardio: Rate: regular rate Rhythm: regular rhythm Peripheral pulses: Peripheral pulses 2+ throughout GI: Inspection: Yes normal to inspection Palpation (GI): Soft to palpation and nontender Auscultation: normal bowel sounds Back/Spine/Pelvis: Thoracic/Lumbar Spine: thoracic and lumbar spine normal to inspection Skin: General skin exam: no rashes or lesions noted Neuro: General: patient oriented x3, no focal motor deficits and normal sens ation to monofilament Cranial nerves: Yes Equal, round and reactive pupils present Cognition (Neuro): normal cognition Speech: No Abnormal speech present Gait exam (Neuro): Normal gait present Motor exam (neuro): 5/5 motor strength present throughout Extrem: General: Yes normal to inspection Course Course Course Narrative: I reviewed the patient's labs. He has mild hyponatremia. He is asymptomatic. He is alert and oriented x3. This a med related. We will trend. Waiting to Medical Decision Making Medical Decision Making [facility] Narrative: 42-year-old male with a history of polysubstance use presents the ER with complaints of depression, SI with no plan and substance use. No concern for acute ingestion or trauma Will obtain labs, drug screen, crisis consultation Differential Diagnosis Differential Diagnoses: The differential diagnosis associated with the presentation includes Lab Data 02/11/23 11:58 02/11/23 12:31 Labs: Lab Results 02/11/23 02/11/23 02/11/23 Range/Units 11:58 12:27 12:31 WBC 15.2 H (4.8-10.8) X10*3/uL RBC 4.88 (4.60-5.80) X10*6/uL Hgb 13.2 L (14.0-18.0) g/dl Hct 39.5 L (42.0-52.0) % MCV 80.9 (80.0-98.0) fL MCH 27.0 (27.0-33.0) pg MCHC 33.4 (31.0-36.0) g/dl RDW 13.5 (11.0-16.0) % Plt Count 103 L (160-400) X10*3/uL MPV Not Reportable Immature Gran % (Auto) 0.4 (0.0-0.4) % Neut % (Auto) 79.2 H (45-73) % Lymph % (Auto) 13.6 L (20-40) % [place] % (Auto) 6.1 (2-11) % Eos % (Auto) 0.5 (0-4) % Baso % (Auto) 0.2 (0-2) % Lymph # (Auto) 2.1 (1.2-4.9) X10*3/uL [place] # (Auto) 0.9 (0.1-1.2) X10*3/uL Eos # (Auto) 0.1 (0.0-0.4) X10*3/uL Baso # (Auto) 0.0 (0.0-0.2) X10*3/uL Abs Immat Gran (auto) 0.06 H (0.00-0.03) X10*3/uL Absolute Neuts (auto) 12.0 H (2.0-8.3) x10*3/uL Absolute Nucleated RBC 0.000 (0.0-0.012) X10*3/uL Nucleated RBC % (auto) 0.0 (0.0-0.2) /100WBC Smear Tech's Comments VERIFIED Sodium 130 L (135-145) mmol/L Potassium 4.8 (3.3-5.1) mmol/L Chloride 100 (96-108) mmol/L Carbon Dioxide 20 L (22-29) mmol/L Anion Gap 15 (12-20) BUN 27 H (9-16) mg/dL Creatinine 1.39 (0.5-1.4) mg/dL Estim Creat Clear Calc 75.5 Estimated GFR 56 Random Glucose 186 H (60-115) mg/dL Calcium 9.1 (8.4-10.2) mg/dL Total Bilirubin 2.0 H (0.0-1.0) mg/dL AST 91 H (5-37) U/L ALT 32 (0-40) U/L Alkaline Phosphatase 81 (39-117) U/L Total Protein 7.5 (6.5-8.0) g/dL Albumin 4.2 (3.5-5.0) g/dL Urine Opiates Screen Not Detected (Not Detect) Urine Fentanyl Screen Not Detected (Not Detect) Ur Barbiturates Screen Not Detected (Not Detect) Ur Phencyclidine Scrn POSITIVE H (Not Detect) Ur Amphetamines Screen POSITIVE H (Not Detect) U Benzodiazepines Scrn Not Detected (Not Detect) Urine Cocaine Screen POSITIVE H (Not Detect) U Marijuana (THC) Screen Not Detected (Not Detect) Discharge Plan Discharge Clinical Impression: Polysubstance (including opioids) dependence, daily use, Suicidal ideations Patient Disposition: Still a Patient Prescriptions: No Action ferrous sulfate 324 mg (65 mg iron) Tablet,Delayed Release (Dr/Ec) 324 mg PO DAILY 30 Days Qty: 30 0RF clonidine HCl 0.1 mg Tablet 0.1 mg PO 1300 30 Days Qty: 30 0RF Protocol: Hold for SBP< HOLD for SBP < : 90 clonidine HCl 0.2 mg Tablet 0.2 mg PO BID 30 Days Qty: 60 0RF Protocol: Hold for SBP< HOLD for SBP < : 90 escitalopram oxalate 5 mg Tablet 15 mg PO DAILY 30 Days Qty: 90 0RF gabapentin 600 mg tablet 600 mg PO TID 30 Days Qty: 90 0RF quetiapine 150 mg tablet 150 mg PO BEDTIME 30 Days Qty: 30 0RF acetaminophen 325 mg Tablet 650 mg PO Q6H PRN (Reason: Headache/Pain Mild Scale (1-3)) Qty: 0 0RF bupropion HCl 300 mg Tablet Extended Release 24 Hr 300 mg PO DAILY 30 Days Qty: 30 0RF dextroamphetamine-amphetamine 30 mg capsule,extended release 24hr 30 mg PO DAILY 30 Days Qty: 30 0RF Rx Instructions: Partial Fill upon patient request. hydroxyzine HCl 50 mg Tablet 50 mg PO Q6H PRN (Reason: Anxiety) 30 Days Qty: 60 0RF methadone [Methadose] 10 mg/mL Concentrate 140 mg PO DAILY Qty: 0 0RF Rx Instructions: Partial Fill upon patient request. naproxen 500 mg Tablet 500 mg PO Q12H PRN (Reason: Pain, Mild (Pain Scale 1-3)) 30 Days Qty: 60 0RF magnesium hydroxide [Milk of Magnesia] 400 mg/5 mL Suspension 30 ml PO DAILY PRN (Reason: Constipation) Qty: 0 0RF MAG-AL 200-200 mg/5 mL Suspension 30 ml PO Q6H PRN (Reason: Heartburn/Nausea) Qty: 0 0RF multivitamin [Daily-Haily] Tablet 1 tab PO DAILY 30 Days Qty: 30 0RF thiamine HCl (vitamin B1) [Vitamin B-1] 100 mg tablet 100 mg PO DAILY 30 Days Qty: 30 0RF propranolol 40 mg tablet 40 mg PO BID 30 Days Qty: 60 0RF promethazine 25 mg tablet 25 mg PO TID PRN (Reason: Nausea And Vomiting) 30 Days Qty: 60 0RF quetiapine 150 mg tablet 150 mg PO BEDTIME Qty: 30 0RF bupropion HCl [Wellbutrin XL] 300 mg tablet extended release 24 hr 300 mg PO QAM Qty: 7 4RF clonidine HCl 0.1 mg tablet 0.1 mg PO .1pm Qty: 7 4RF clonidine HCl 0.2 mg tablet 0.2 mg PO BID Qty: 14 4RF escitalopram oxalate [Lexapro] 10 mg tablet 15 mg PO DAILY Qty: 11 4RF ferrous sulfate 324 mg (65 mg iron) tablet,delayed release (DR/EC) 324 mg PO DAILY Qty: 7 4RF gabapentin 600 mg tablet 600 mg PO TID Qty: 21 4RF multivitamin Tablet 1 tab PO DAILY Qty: 7 4RF thiamine HCl (vitamin B1) 100 mg tablet 50 mg PO DAILY Qty: 7 4RF Interventions: [place]-Suicide Risk Severity Scale Last Done: 02/11/23 15:28
[2023-02-11 11:20] VITALS: BP 105/74; PULSE 66
[2023-02-11 12:13] LABS: Basophils Percent Auto 0.2 % (0-2); Eosinophils Absolute Auto 0.1 X10*3/uL (0.0-0.4); Eosinophils Percent Auto 0.5 % (0-4); Hematocrit 39.5 % (42.0-52.0); Hemoglobin 13.2 g/dl (14.0-18.0); Imm Gran Abs Auto 0.06 X10*3/uL (0.00-0.03); Imm Gran Pct Auto 0.4 % (0.0-0.4); Lymphocytes Absolute Auto 2.1 X10*3/uL (1.2-4.9); Lymphocytes Percent Auto 13.6 % (20-40); MANUAL DIFF FLAG SCAN; Mean Corpuscular HGB Conc 33.4 g/dl (31.0-36.0); Mean Corpuscular Volume 80.9 fL (80.0-98.0); Monocytes Absolute Auto 0.9 X10*3/uL (0.1-1.2); Monocytes Percent Auto 6.1 % (2-11); Neutrophils Percent Auto 79.2 % (45-73); PLT CLUMP 1; Red Blood Count 4.88 X10*6/uL (4.60-5.80); Red Cell Distribution Width 13.5 % (11.0-16.0); SCAN SMEAR FLAG 1
[2023-02-11 12:32] LABS: Platelet Count 103 X10*3/uL (160-400); SLIDE REVIEW VERIFIED; White Blood Count 15.2 X10*3/uL (4.8-10.8)
[2023-02-11 12:51] LABS: Amphetamine Screen Urine POSITIVE (Not Detect); Barbiturates, Urine Not Detected (Not Detect); Benzodiazepines Screen Urine Not Detected (Not Detect); Cannabinoid Screen Urine Not Detected (Not Detect); Cocaine Screen Urine POSITIVE (Not Detect); Fentanyl, urine Not Detected (Not Detect); Opiate Screen Urine Not Detected (Not Detect); Phencyclidine Screen Urine POSITIVE (Not Detect)
[2023-02-11 13:22] LABS: Alanine Aminotransferase 32 U/L (0-40); Albumin Level 4.2 g/dL (3.5-5.0); Alkaline Phosphatase 81 U/L (39-117); Anion Gap 15 (12-20); Aspartate Amino Transferase 91 U/L (5-37); Blood Urea Nitrogen 27 mg/dL (9-16); Calcium 9.1 mg/dL (8.4-10.2); Carbon Dioxide 20 mmol/L (22-29); Chloride 100 mmol/L (96-108); Creatinine Clr Calc Pharmacy 75.5; Estimated Glomerular Filt Rate 56; Glucose Random 186 mg/dL (60-115); Potassium 4.8 mmol/L (3.3-5.1); Sodium 130 mmol/L (135-145); Total Protein 7.5 g/dL (6.5-8.0)
[2023-02-11 16:12] VITALS: BP 100/58; PULSE 57; RESP 14; TEMP 36.2; O2SAT 97
--- NOTE | 2023-02-11 16:55 | ECG_ITS ---
Test Reason : MED CLEARANCE Blood Pressure : / mmHG Vent. Rate : 052 BPM Atrial Rate : 052 BPM P-R Int : 160 ms QRS Dur : 114 ms QT Int : 506 ms P-R-T Axes : 049 009 031 degrees QTc Int : 470 ms Sinus bradycardia Nonspecific ST and T wave abnormality Abnormal ECG When compared with ECG of 01-SEP-2022 22:36, No significant change was found Referred By: Cinda Rice Electronically Signed By:KATELYNN LEMOS
--- NOTE | 2023-02-11 19:12 | MHC.RECOVSUP ---
? Reason for consult:Recovery Support o Current location: [facility]? o Identified substance use concern: JOHNY - Support ? Plan: o Follow up tomorrow ? ? Additional information:?Patient was not seen by etiquette coach at this time, patient was sleeping.
[2023-02-11 19:47] LABS: Ethanol < 10 mg/dL
[2023-02-11 20:21] LABS: COVID-19 Test Negative (Negative); IDNOW Serial# 6674DD1D
--- NOTE | 2023-02-11 22:52 | MHC.CARE ---
CARE Team tried multiple times throughout t/w shift to wake the pt up but he would not budge. Pt will have to be seen on the morning shift.
--- NOTE | 2023-02-12 04:54 | PC.NURSE ---
Patient slept through the night, no distress observed/reported, behavior non concerning at this time but unpredictable, med rec completed/pending provider's approval, VSS, care consult ordered/pending evaluation, Methadone verification attempted but with no result voice mail left, no safety concerns at this time, will continue to monitor.
[2023-02-12 07:35] VITALS: BP 120/71; PULSE 67; RESP 16; TEMP 36.4; O2SAT 96
[2023-02-12] MEDS: Gabapentin 600 MG TABLET PO ×3 (07:35→22:28)
[2023-02-12] MEDS: hydrOXYzine HCL 50 MG TABLET PO ×3 (07:35→22:28)
[2023-02-12] MEDS: buPROPion HCl XL 300 MG TAB.ER.24H PO (07:35)
[2023-02-12] MEDS: Escitalopram Oxalate 10 MG TABLET PO (07:35)
[2023-02-12] MEDS: Dextroamphetamine/Amphetamine XR 10 MG CAP.ER.24H 30 MG PO (07:35)
[2023-02-12] MEDS: cloNIDine HCL 0.2 MG TABLET PO ×3 (07:36→22:27)
[2023-02-12] MEDS: methADONE HCl 20 MG/2 ML ORAL.CONC 170 MG PO (08:14)
--- NOTE | 2023-02-12 08:44 | HE.PHANOTE ---
[facility] has received the methadone verification form from [facility]. Patient last received methadone 170 mg from [facility] on 02/07/23 with a 7 days supply of take home bottles. Confirmed with Delta at the clinic. Re Li, JericaD
[2023-02-12] MEDS: Lidocaine HCl Viscous 2 % 15 ML SOLUTION MUCOUS MEM (12:20)
--- NOTE | 2023-02-12 12:55 | PC.NURSE ---
pt with nad, states he has some dental pain, informed and lidocaine given as ordered
[2023-02-12 14:18] VITALS: BP 104/61; PULSE 61; RESP 16; TEMP 36.3; O2SAT 97
--- NOTE | 2023-02-12 15:23 | PC.NURSE ---
pt has been watching tv most of the afternoon, states lidocaine helped his dental pain some but its still present, nad
[2023-02-12] MEDS: QUEtiapine Fumarate 100 MG TABLET PO (23:02)
--- NOTE | 2023-02-13 03:19 | PC.NURSE ---
Assumed care of pt at 1900. Pt. sleeping at that time. Pt. has continued to sleep through the night only waking for medications. Seroquel had not been previously ordered. Corrected the med rec and provider ordered the seroquel going forward.
[2023-02-13 05:55] VITALS: BP 93/61; PULSE 64; RESP 17; TEMP 36.7; O2SAT 95
[2023-02-13] MEDS: methADONE HCl 20 MG/2 ML ORAL.CONC 170 MG PO (08:16)
[2023-02-13] MEDS: Dextroamphetamine/Amphetamine XR 10 MG CAP.ER.24H 30 MG PO (08:17)
[2023-02-13] MEDS: Gabapentin 600 MG TABLET PO ×3 (08:17→19:45)
[2023-02-13] MEDS: buPROPion HCl XL 300 MG TAB.ER.24H PO (08:18)
[2023-02-13] MEDS: hydrOXYzine HCL 50 MG TABLET PO ×3 (08:18→19:45)
[2023-02-13] MEDS: cloNIDine HCL 0.2 MG TABLET PO ×3 (08:19→19:46)
[2023-02-13 18:00] VITALS: BP 127/57; PULSE 63; TEMP 36.3; O2SAT 97
--- NOTE | 2023-02-13 19:16 | PC.ADMIT ---
pt is a 42 year old male who presented to [facility] ED with SI and polysubstance abuse. pt has a positive tox screen for PCP, cocaine and amphetamines. pt has a past history of substance abuse disorder, back pain, major depressive disorder, and past stays in a inpatient psych. during admission, pt answered all questions and signed legals. 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 start treatment plan and promote safety.
[2023-02-13] MEDS: Benzocaine 20 % Oral Gel 9 GM TUBE 1 APPL MUCOUS MEM (19:45)
[2023-02-13] MEDS: QUEtiapine Fumarate 100 MG TABLET PO (19:46)
[2023-02-14 06:00] VITALS: BP 119/71; PULSE 57; RESP 18
[2023-02-14] MEDS: Escitalopram Oxalate 10 MG TABLET PO (07:58)
[2023-02-14] MEDS: buPROPion HCl XL 300 MG TAB.ER.24H PO (07:58)
[2023-02-14] MEDS: Multivitamin TABLET 1 TAB PO (07:58)
[2023-02-14] MEDS: cloNIDine HCL 0.2 MG TABLET PO (07:58)
[2023-02-14] MEDS: Thiamine HCL 100 MG TABLET PO (07:58)
[2023-02-14] MEDS: hydrOXYzine HCL 50 MG TABLET PO ×3 (07:58→22:24)
[2023-02-14] MEDS: Gabapentin 600 MG TABLET PO ×3 (07:58→22:24)
[2023-02-14] MEDS: methADONE HCl 20 MG/2 ML ORAL.CONC 170 MG PO (08:00)
[2023-02-14 09:27] LABS: Estimated Average Glucose 94 mg/dL; Hemoglobin A1c % 4.9 %
[2023-02-14 09:31] LABS: Anion Gap 18 (12-20); Blood Urea Nitrogen 9 mg/dL (9-16); Calcium 9.7 mg/dL (8.4-10.2); Carbon Dioxide 20 mmol/L (22-29); Chloride 105 mmol/L (96-108); Creatinine Clr Calc Pharmacy 112.9; Estimated Glomerular Filt Rate > 60; Glucose Random 97 mg/dL (60-115); Potassium 4.8 mmol/L (3.3-5.1); Sodium 138 mmol/L (135-145)
[2023-02-14 09:39] LABS: Cholesterol 145 mg/dL; HDL Cholesterol 35 mg/dL; LDL Cholesterol Calculated 83 mg/dl; Triglycerides 139 mg/dL
[2023-02-14 10:07] LABS: Folate 10.6 ng/mL (> or = 4.0); Free T4 (Free Thyroxine) 1.47 ng/dL (0.71-1.85); Thyroid Stimulating Hormone 3.06 uIU/mL (0.32-4.0); Vitamin B12 538 pg/mL (200-900)
[2023-02-14] MEDS: Dextroamphetamine/Amphetamine XR 10 MG CAP.ER.24H 30 MG PO (10:33)
[2023-02-14] MEDS: Benzocaine 20 % Oral Gel 9 GM TUBE 1 APPL MUCOUS MEM (12:50)
[2023-02-14] MEDS: Propranolol HCL 10 MG TABLET PO (14:19)
--- NOTE | 2023-02-14 15:10 | P.HPPS_ITS ---
HPI Date of Service: 02/14/23 Chief Complaint: Major depression, SI, polysubstance use, opiate us Sources of Information: patient interviewed, chart reviewed and crisis/core team assessment reviewed HPI Subjective Notes: [place] Warning and Conditional Voluntary Healthcare Proxy: No Guardianship: No Medical Problems Affecting Mental Status: No Narrative: 42 yo male, history of polysubstance use disorder, depression, ADHD presents with SI. Pt reports he was asked to leave his TSS on 02/08/23. Reports that he had tattoo equipment on his person, was seen vaping at the program and had been keeping too much food stored in his room. States he had been in the program for ~90 days. He reports relapse upon being asked to leave. SI by history is severe, recent history of overdose on hospital grounds with resulting medical admission. Review of recent issues-pt had a severe sunburn on 02/08- with elevated WBC 15.2, Na 130 (138 today) and BUN 27. Also reports that a lower molar L side is cracked and he is experiencing pain. Pt aks for assistance in stabilization and he will begin calling programs to be evaluated for admission to [facility] which he believes is the safest plan for him. Pt requests we focus on anxiety mgt during his in pt time. Past Psychiatric History: -IP: [place] 08/24/22; [facility] [place] 11/29/21 Hx of IPLOC at [facility] in 2020 due to SI. Recent [facility] admit Reports hx of SA by cutting wrist. TSS: Oct 2021 LIZBETH Choudhary -Past meds: Vyvanse, Methadone, Wellbutrin, Clonidine, Gabapentin, Seroquel, Buspar, Lexapro, Propranolol, Atarax, Promethazine -[facility] Evaluation Reviewed: Yes [facility] Medical History ADHD Opioid use disorder, severe, on maintenance therapy Narrative: L Lower molar fracture Family History: Pt denies Social History: -Currently homeless Born and raised in [place], by his mother. Two sisters Recent move from [place], and has been homeless since coming to this area Hx of incarceration for 12 years Denies current legal issues/probation/parole Substance History: Relapse after TSS dischrge Trauma History: -Per chart, hx of PTSD from incarceration. Diagnostics Vital Signs (24Hr): Vital Signs - 24 hr 02/13/23 18:00 02/14/23 06:00 Temperature 97.4 F Pulse Rate 63 57 Respiratory Rate 18 Blood Pressure 127/57 L 119/71 Pulse Oximetry 97 Oxygen Delivery Method Room Air Room Air BMI result Body Mass Index 33.9 Labs 02/11/23 11:58 02/14/23 08:24 Labs: Laboratory Results - last 48 hr 02/14/23 02/14/23 02/14/23 08:24 08:24 08:24 Sodium 138 Potassium 4.8 Chloride 105 Carbon Dioxide 20 L Anion Gap 18 BUN 9 Creatinine 0.93 Estim Creat Clear Calc 112.9 Estimated GFR > 60 Random Glucose 97 Estimat Average Glucose 94 Hemoglobin A1c % 4.9 Calcium 9.7 D Magnesium 2.0 Triglycerides 139 Cholesterol 145 LDL Cholesterol, Calc 83 HDL Cholesterol 35 Vitamin B12 538 Folate 10.6 TSH 3.06 Free T4 1.47 Meds/Allergies Meds Home Medications Medication Instructions Recorded Confirmed Type bupropion HCl 300 mg 24 hr tablet, 300 mg PO DAILY 02/11/23 02/11/23 History extended release clonidine HCl 0.2 mg tablet 0.2 mg PO TID 02/11/23 02/11/23 History dextroamphetamine-amphetamine ER 1 cap PO QAM 02/11/23 02/11/23 History 30 mg 24hr capsule,extend release (Adderall XR) escitalopram oxalate 10 mg tablet 10 mg PO DAILY 02/11/23 02/11/23 History gabapentin 600 mg tablet 600 mg PO TID 02/11/23 02/11/23 History hydroxyzine HCl 50 mg tablet 50 mg PO TID 02/11/23 02/11/23 History methadone 10 mg/5 mL oral solution 170 mg PO DAILY 02/12/23 02/12/23 History quetiapine 50 mg tablet 100 mg PO BEDTIME 02/12/23 02/12/23 History Allergies Allergies Allergy/AdvReac Type Severity Reaction Status Date / Time capsaicin AdvReac Severe Burning Verified 02/11/23 09:45 sensation Mental Status Exam Mental Status Exam Patient Appearance: Appropriate Patient Orientation: Person, Place, Time and Situation Level of Consciousness: Alert Patient Behavior: Talkative and Good Eye Contact Mood Description: Anxious Affect Description: Constricted Patient Cognition Impaired: No Ability to Follow Directions: Good Speech Pattern: Spontaneous Speech Memory Description: Intact Hallucinations: None Delusions: Not Present Perceptual Disturbances: Derealization Thought Process: Rumination and Goal Oriented Thought Content: positive for Perseveration and positive for Suicidal Ideation Depressive Symptoms: Increased Anxiety, Thoughts of /Suicide and Low Self Esteem Judgement: Good Assessment & Plan Assessment & Plan (1) Polysubstance (including opioids) dependence, daily use: Status: Acute Code(s): F11.20 - Opioid dependence, uncomplicated; F19.20 - Other psychoactive substance dependence, uncomplicated (2) Suicidal ideations: Status: Acute Code(s): R45.851 - Suicidal ideations (3) ADHD: Status: Acute Code(s): F90.9 - Attention-deficit hyperactivity disorder, unspecified type (4) Opioid use disorder, severe, on maintenance therapy: Status: Acute Code(s): F11.20 - Opioid dependence, uncomplicated (5) MDD (major depressive disorder), recurrent episode, moderate: Status: Acute Code(s): F33.1 - Major depressive disorder, recurrent, moderate Plan 42 yo male, history of depression, polysubstance use disorder, to ER with SI, relapse after being asked to leave TSS due to violation of rules. Pt reports anxiety as a major sx. Plan: Discontinue Clonidine Propranolol 10 mg bid Increase Lexapro to 20 mg daily Amoxicillin 250 mg bid-dental fracture Sodium corrected, today 138, BUN 27 - 9 today, WBC 15.2-?sunburn, ?dental abscess. Collateral contacts Aftercare planning. Patient educated on: medication risk/benefits and therapeutic strategies Informed Consent: understands Reason for continued inpatient stay Substantial Risk for: rapid decompensation Statement Statement: I have reviewed the history and physical and performed a pertinent examination on my patient. No changes have occurred unless specified. If the History and Physical was not performed prior to admission, the Hospitalist's service will be consulted for completing the admission physical. Time Spent With Patient Time: Total time managing care of this patient today ____ minutes.
[2023-02-14] MEDS: QUEtiapine Fumarate 100 MG TABLET PO (22:24)
[2023-02-15 07:00] VITALS: BMI 35.2
[2023-02-15 08:06] VITALS: BP 123/66; PULSE 65; RESP 16; TEMP 36.9; O2SAT 97
[2023-02-15] MEDS: methADONE HCl 20 MG/2 ML ORAL.CONC 170 MG PO (08:27)
[2023-02-15] MEDS: Multivitamin TABLET 1 TAB PO (08:28)
[2023-02-15] MEDS: buPROPion HCl XL 300 MG TAB.ER.24H PO (08:28)
[2023-02-15] MEDS: Escitalopram Oxalate 20 MG TABLET PO (08:28)
[2023-02-15] MEDS: Gabapentin 600 MG TABLET PO ×3 (08:28→18:34)
[2023-02-15] MEDS: hydrOXYzine HCL 50 MG TABLET PO ×3 (08:28→18:34)
[2023-02-15] MEDS: Propranolol HCL 10 MG TABLET PO ×2 (08:28→14:47)
[2023-02-15] MEDS: Thiamine HCL 100 MG TABLET PO (08:28)
[2023-02-15] MEDS: Dextroamphetamine/Amphetamine XR 10 MG CAP.ER.24H 30 MG PO (08:28)
[2023-02-15] MEDS: Benzocaine 20 % Oral Gel 9 GM TUBE 1 APPL MUCOUS MEM (11:22)
[2023-02-15] MEDS: Mineral Oil/Petrolatum,White 106 GM Tube 1 APPL TOPICAL (14:48)
--- NOTE | 2023-02-15 17:05 | HO.PSYCHPN ---
Subjective Subjective Date of Service: 02/15/23 Reason For Visit: Major depression, SI, polysubstance use, opiate us Subjective Notes: Conditional Voluntary Healthcare Proxy: No Guardianship: No Medical Problems Affecting Mental Status: No Interim History: Norbert focused today on calling programs and applications for admission to longer term treatment. Denies current issues or concerns today. Regime is re-established, denies adverse effects. Medication Compliance: Yes Side effects from medications: No Attending Groups: Yes Review of Systems Acute medical concerns: No Medical Review of Systems: unchanged Mental Status Exam Mental Status Exam Patient Appearance: Appropriate Patient Orientation: Person, Place, Time and Situation Level of Consciousness: Alert Patient Behavior: Talkative and Good Eye Contact Mood Description: Anxious Affect Description: Constricted Patient Cognition Impaired: No Ability to Follow Directions: Good Speech Pattern: Spontaneous Speech Memory Description: Intact Hallucinations: None Delusions: Not Present Perceptual Disturbances: Derealization Thought Process: Rumination and Goal Oriented Thought Content: positive for Perseveration Depressive Symptoms: Increased Anxiety and Low Self Esteem Judgement: Good Diagnostics Vital Signs (24Hr): Vital Signs - 24 hr 02/15/23 08:06 Temperature 98.4 F Pulse Rate 65 Respiratory Rate 16 Blood Pressure 123/66 Pulse Oximetry 97 Oxygen Delivery Method Room Air BMI result Body Mass Index 35.2 Labs 02/11/23 11:58 02/14/23 08:24 Labs: Laboratory Results - last 48 hr 02/14/23 02/14/23 02/14/23 08:24 08:24 08:24 Sodium 138 Potassium 4.8 Chloride 105 Carbon Dioxide 20 L Anion Gap 18 BUN 9 Creatinine 0.93 Estim Creat Clear Calc 112.9 Estimated GFR > 60 Random Glucose 97 Estimat Average Glucose 94 Hemoglobin A1c % 4.9 Calcium 9.7 D Magnesium 2.0 Triglycerides 139 Cholesterol 145 LDL Cholesterol, Calc 83 HDL Cholesterol 35 Vitamin B12 538 Folate 10.6 TSH 3.06 Free T4 1.47 Medications Medications Current Medications Acetaminophen (Acetaminophen 325 Mg Tablet) 650 mg PO Q6H PRN PRN Reason: Headache/Pain Mild Scale (1-3) Al Hydroxide/Mg Hydroxide (Magnesium Hydrox/Alum Hydrox 30 Ml Oral.Susp) 30 ml PO Q6H PRN PRN Reason: Heartburn/Nausea Amoxicillin (Amoxicillin 250 Mg Capsule) 250 mg PO Q12H [facility] Last Admin: 02/15/23 11:18 Dose: 250 mg Amphetamine/Dextroamphetamine (Dextroamphetamine/Amphetamine Xr 10 Mg Cap.Er.24h) 30 mg PO DAILY [facility] Last Admin: 02/15/23 08:28 Dose: 30 mg Benzocaine (Benzocaine 20 % Oral Gel 9 Gm Tube) 1 appl MUCOUS MEM TID PRN; Protocol PRN Reason: toothache Last Admin: 02/15/23 11:22 Dose: 1 appl Bupropion HCl (Bupropion Hcl Xl 300 Mg Tab.Er.24h) 300 mg PO DAILY [facility] Last Admin: 02/15/23 08:28 Dose: 300 mg Escitalopram Oxalate (Escitalopram Oxalate 20 Mg Tablet) 20 mg PO DAILY [facility] Last Admin: 02/15/23 08:28 Dose: 20 mg Gabapentin (Gabapentin 600 Mg Tablet) 600 mg PO TID [facility] Last Admin: 02/15/23 14:46 Dose: 600 mg Hydroxyzine HCl (Hydroxyzine Hcl 50 Mg Tablet) 50 mg PO TID [facility] Last Admin: 02/15/23 14:47 Dose: 50 mg Hydroxyzine HCl (Hydroxyzine Hcl 25 Mg Tablet) 25 mg PO Q6H PRN PRN Reason: Anxiety Lorazepam (Lorazepam 1 Mg Tablet) 1 mg PO Q4H PRN PRN Reason: Alcohol Withdrawal Magnesium Hydroxide (Milk Of Magnesia 30 Ml Oral.Susp) 30 ml PO DAILY PRN PRN Reason: Constipation Methadone HCl (Methadone Hcl 20 Mg/2 Ml Oral.Conc) 170 mg PO DAILY [facility] Last Admin: 02/15/23 08:27 Dose: 170 mg Multi-Ingred Cream/Lotion/Oil/Oint (Mineral Oil/Petrolatum,White 106 Gm Tube) 1 appl TOPICAL BID [facility]; Protocol Last Admin: 02/15/23 14:48 Dose: 1 appl Multivitamins/Vitamin C (Multivitamin Tablet) 1 tab PO DAILY [facility] Last Admin: 02/15/23 08:28 Dose: 1 tab Pharmacy Consult (Consult Rx Perform Med Rec) 1 each MISCELLANE ONCE PRN PRN Reason: Consult order Propranolol HCl (Propranolol Hcl 10 Mg Tablet) 10 mg PO 0900,1500 [facility]; Protocol Last Admin: 02/15/23 14:47 Dose: 10 mg Quetiapine Fumarate (Quetiapine Fumarate 100 Mg Tablet) 100 mg PO BEDTIME [facility] Last Admin: 02/14/23 22:24 Dose: 100 mg Thiamine HCl (Thiamine Hcl 100 Mg Tablet) 100 mg PO DAILY [facility] Last Admin: 02/15/23 08:28 Dose: 100 mg Allergies Allergies Allergy/AdvReac Type Severity Reaction Status Date / Time capsaicin AdvReac Severe Burning Verified 02/11/23 09:45 sensation Assessment & Plan Assessment & Plan (1) Polysubstance (including opioids) dependence, daily use: Status: Acute Code(s): F11.20 - Opioid dependence, uncomplicated; F19.20 - Other psychoactive substance dependence, uncomplicated (2) Suicidal ideations: Status: Acute Code(s): R45.851 - Suicidal ideations (3) ADHD: Status: Acute Code(s): F90.9 - Attention-deficit hyperactivity disorder, unspecified type (4) Opioid use disorder, severe, on maintenance therapy: Status: Acute Code(s): F11.20 - Opioid dependence, uncomplicated (5) MDD (major depressive disorder), recurrent episode, moderate: Status: Acute Code(s): F33.1 - Major depressive disorder, recurrent, moderate Plan 42 yo male, history of depression, polysubstance use disorder, to ER with SI, relapse after being asked to leave [facility] due to violation of rules. Pt reports anxiety as a major sx. Plan: Discontinue Clonidine Propranolol 10 mg bid Increase Lexapro to 20 mg daily Amoxicillin 250 mg bid-dental fracture Sodium corrected, today 138, BUN 27 - 9 today, WBC 15.2-?sunburn, ?dental abscess. Collateral contacts Aftercare planning. 02/15/23 Continue current plan/regime. Patient educated on: substance abuse and therapeutic strategies Informed Consent: understands Reason for continued inpatient stay Substantial Risk for: harm to self, inability to function and rapid decompensation Time Spent With Patient Time: Total time managing care of this patient today ____ minutes.
[2023-02-15] MEDS: Promethazine HCL 25 MG TABLET PO (17:37)
[2023-02-15 17:58] VITALS: BP 138/91; PULSE 60
[2023-02-15] MEDS: QUEtiapine Fumarate 100 MG TABLET PO (18:34)
[2023-02-16 07:57] VITALS: BP 126/63; PULSE 61; RESP 16; TEMP 36.2; O2SAT 96
[2023-02-16] MEDS: Dextroamphetamine/Amphetamine XR 10 MG CAP.ER.24H 30 MG PO (08:31)
[2023-02-16] MEDS: Thiamine HCL 100 MG TABLET PO (08:32)
[2023-02-16] MEDS: Gabapentin 600 MG TABLET PO ×3 (08:32→20:46)
[2023-02-16] MEDS: buPROPion HCl XL 300 MG TAB.ER.24H PO (08:32)
[2023-02-16] MEDS: methADONE HCl 20 MG/2 ML ORAL.CONC 170 MG PO (08:32)
[2023-02-16] MEDS: hydrOXYzine HCL 50 MG TABLET PO ×3 (08:32→20:47)
[2023-02-16] MEDS: Escitalopram Oxalate 20 MG TABLET PO (08:32)
[2023-02-16] MEDS: Propranolol HCL 10 MG TABLET PO ×2 (08:32→14:33)
[2023-02-16] MEDS: Multivitamin TABLET 1 TAB PO (08:32)
[2023-02-16] MEDS: Benzocaine 20 % Oral Gel 9 GM TUBE 1 APPL MUCOUS MEM ×3 (14:33→20:47)
[2023-02-16] MEDS: Mineral Oil/Petrolatum,White 106 GM Tube 1 APPL TOPICAL (16:11)
[2023-02-16 16:15] VITALS: BP 149/83; PULSE 67; TEMP 36.4
[2023-02-16] MEDS: Promethazine HCL 25 MG TABLET PO (16:22)
--- NOTE | 2023-02-16 17:15 | P.PNPSI_ITS ---
Subjective Subjective Date of Service: 02/16/23 Reason For Visit: Major depression, SI, polysubstance use, opiate us Subjective Notes: Conditional Voluntary Healthcare Proxy: No Guardianship: No Medical Problems Affecting Mental Status: No Interim History: Working on a list of [facility] applications for admission-reviewed. Hoping for [facility], [place] or [place]. Discussed today his recent discharge and rationale for discharge, along with his feelings about the discharge. Discussed GI issues that he was in process of having evaluated in [place] earlier this year and current symptoms of concern. Promethazine prn bid ordered for sx mgt. Medication Compliance: Yes Side effects from medications: No Attending Groups: Yes Review of Systems Acute medical concerns: No Medical Review of Systems: unchanged Mental Status Exam Mental Status Exam Patient Appearance: Appropriate Patient Orientation: Person, Place, Time and Situation Level of Consciousness: Alert Patient Behavior: Talkative and Good Eye Contact Mood Description: Anxious Affect Description: Constricted Patient Cognition Impaired: No Ability to Follow Directions: Good Speech Pattern: Spontaneous Speech Memory Description: Intact Hallucinations: None Delusions: Not Present Perceptual Disturbances: Derealization Thought Process: Rumination and Goal Oriented Thought Content: positive for Perseveration Depressive Symptoms: Increased Anxiety and Low Self Esteem Judgement: Good Diagnostics Vital Signs (24Hr): Vital Signs - 24 hr 02/15/23 17:58 02/16/23 07:57 02/16/23 16:15 Temperature 97.1 F 97.6 F Pulse Rate 60 61 67 Respiratory Rate 16 Blood Pressure 138/91 H 126/63 149/83 H Pulse Oximetry 96 Oxygen Delivery Method Room Air BMI result Body Mass Index 35.2 Labs 02/11/23 11:58 02/14/23 08:24 Medications Medications Current Medications Acetaminophen (Acetaminophen 325 Mg Tablet) 650 mg PO Q6H PRN PRN Reason: Headache/Pain Mild Scale (1-3) Al Hydroxide/Mg Hydroxide (Magnesium Hydrox/Alum Hydrox 30 Ml Oral.Susp) 30 ml PO Q6H PRN PRN Reason: Heartburn/Nausea Amoxicillin (Amoxicillin 250 Mg Capsule) 250 mg PO Q12H [facility] Last Admin: 02/16/23 11:10 Dose: 250 mg Amphetamine/Dextroamphetamine (Dextroamphetamine/Amphetamine Xr 10 Mg Cap.E r.24h) 30 mg PO DAILY [facility] Last Admin: 02/16/23 08:31 Dose: 30 mg Benzocaine (Benzocaine 20 % Oral Gel 9 Gm Tube) 1 appl MUCOUS MEM TID PRN; Protocol PRN Reason: toothache Last Admin: 02/16/23 16:11 Dose: 1 appl Bupropion HCl (Bupropion Hcl Xl 300 Mg Tab.Er.24h) 300 mg PO DAILY [facility] Last Admin: 02/16/23 08:32 Dose: 300 mg Escitalopram Oxalate (Escitalopram Oxalate 20 Mg Tablet) 20 mg PO DAILY [facility] Last Admin: 02/16/23 08:32 Dose: 20 mg Gabapentin (Gabapentin 600 Mg Tablet) 600 mg PO TID [facility] Last Admin: 02/16/23 14:33 Dose: 600 mg Hydroxyzine HCl (Hydroxyzine Hcl 50 Mg Tablet) 50 mg PO TID [facility] Last Admin: 02/16/23 14:33 Dose: 50 mg Hydroxyzine HCl (Hydroxyzine Hcl 25 Mg Tablet) 25 mg PO Q6H PRN PRN Reason: Anxiety Lorazepam (Lorazepam 1 Mg Tablet) 1 mg PO Q4H PRN PRN Reason: Alcohol Withdrawal Magnesium Hydroxide (Milk Of Magnesia 30 Ml Oral.Susp) 30 ml PO DAILY PRN PRN Reason: Constipation Methadone HCl (Methadone Hcl 20 Mg/2 Ml Oral.Conc) 170 mg PO DAILY [facility] Last Admin: 02/16/23 08:32 Dose: 170 mg Multi-Ingred Cream/Lotion/Oil/Oint (Mineral Oil/Petrolatum,White 106 Gm Tube) 1 appl TOPICAL BID [facility]; Protocol Last Admin: 02/16/23 16:11 Dose: 1 appl Multivitamins/Vitamin C (Multivitamin Tablet) 1 tab PO DAILY [facility] Last Admin: 02/16/23 08:32 Dose: 1 tab Pharmacy Consult (Consult Rx Perform Med Rec) 1 each MISCELLANE ONCE PRN PRN Reason: Consult order Promethazine HCl (Promethazine Hcl 25 Mg Tablet) 25 mg PO Q8H PRN PRN Reason: gi disress Last Admin: 02/16/23 16:22 Dose: 25 mg Propranolol HCl (Propranolol Hcl 10 Mg Tablet) 10 mg PO 0900,1500 [facility]; Protocol Last Admin: 02/16/23 14:33 Dose: 10 mg Quetiapine Fumarate (Quetiapine Fumarate 100 Mg Tablet) 100 mg PO BEDTIME [facility] Last Admin: 02/15/23 18:34 Dose: 100 mg Thiamine HCl (Thiamine Hcl 100 Mg Tablet) 100 mg PO DAILY [facility] Last Admin: 02/16/23 08:32 Dose: 100 mg Allergies Allergies Allergy/AdvReac Type Severity Reaction Status Date / Time capsaicin AdvReac Severe Burning Verified 02/11/23 09:45 sensation Assessment & Plan Assessment & Plan (1) Polysubstance (including opioids) dependence, daily use: Status: Acute Code(s): F11.20 - Opioid dependence, uncomplicated; F19.20 - Other psychoactive substance dependence, uncomplicated (2) Suicidal ideations: Status: Acute Code(s): R45.851 - Suicidal ideations (3) ADHD: Status: Acute Code(s): F90.9 - Attention-deficit hyperactivity disorder, unspecified type (4) Opioid use disorder, severe, on maintenance therapy: Status: Acute Code(s): F11.20 - Opioid dependence, uncomplicated (5) MDD (major depressive disorder), recurrent episode, moderate: Status: Acute Code(s): F33.1 - Major depressive disorder, recurrent, moderate Plan 42 yo male, history of depression, polysubstance use disorder, to ER with SI, relapse after being asked to leave [facility] due to violation of rules. Pt reports anxiety as a major sx. Plan: Discontinue Clonidine Propranolol 10 mg bid Increase Lexapro to 20 mg daily Amoxicillin 250 mg bid-dental fracture Sodium corrected, today 138, BUN 27 - 9 today, WBC 15.2-?sunburn, ?dental abscess. Collateral contacts Aftercare planning. 02/16/23- Promethazine 25 mg q8h prn gastric distress/nausea Patient educated on: diagnosis, medication risk/benefits and medical condition Informed Consent: understands Reason for continued inpatient stay Substantial Risk for: harm to self and rapid decompensation Time Spent With Patient Time: Total time managing care of this patient today ____ minutes.
[2023-02-16 18:23] VITALS: BP 127/73; PULSE 64; TEMP 36.2; O2SAT 98
[2023-02-16] MEDS: LORazepam 1 MG TABLET PO (20:46)
[2023-02-16] MEDS: QUEtiapine Fumarate 100 MG TABLET PO (20:47)
[2023-02-17 08:40] VITALS: BP 164/83; PULSE 97; RESP 16; TEMP 36.6; O2SAT 98
[2023-02-17] MEDS: Propranolol HCL 10 MG TABLET PO ×3 (08:45→15:32)
[2023-02-17] MEDS: buPROPion HCl XL 300 MG TAB.ER.24H PO (08:45)
[2023-02-17] MEDS: Thiamine HCL 100 MG TABLET PO (08:45)
[2023-02-17] MEDS: Escitalopram Oxalate 20 MG TABLET PO (08:45)
[2023-02-17] MEDS: hydrOXYzine HCL 50 MG TABLET PO ×3 (08:45→20:27)
[2023-02-17] MEDS: Dextroamphetamine/Amphetamine XR 10 MG CAP.ER.24H 30 MG PO (08:45)
[2023-02-17] MEDS: Gabapentin 600 MG TABLET PO ×3 (08:45→20:27)
[2023-02-17] MEDS: methADONE HCl 20 MG/2 ML ORAL.CONC 170 MG PO (08:48)
[2023-02-17] MEDS: Mineral Oil/Petrolatum,White 106 GM Tube 1 APPL TOPICAL (09:04)
[2023-02-17] MEDS: Benzocaine 20 % Oral Gel 9 GM TUBE 1 APPL MUCOUS MEM (10:07)
[2023-02-17] MEDS: LORazepam 1 MG TABLET PO ×3 (10:07→19:15)
--- NOTE | 2023-02-17 10:36 | HO.PSYCHPN ---
Subjective Subjective Date of Service: 02/17/23 Reason For Visit: Major depression, SI, polysubstance use, opiate us Subjective Notes: Conditional Voluntary Healthcare Proxy: No Guardianship: No Medical Problems Affecting Mental Status: No Interim History: Patient was seen and discussed in rounds today. Records and plans were reviewed. He has been stable and is doing well and is off detox protocol. He is social, visible and interactive. Eating and sleeping adequately. No complaints or side effects. No changes were made today Medication Compliance: Yes Review of Systems Review of Systems Yes all other systems are reviewed and are negative Mental Status Exam Mental Status Exam Patient Appearance: Appropriate Patient Orientation: Person, Place, Time and Situation Level of Consciousness: Alert Patient Behavior: Talkative and Good Eye Contact Mood Description: Anxious Affect Description: Constricted Patient Cognition Impaired: No Ability to Follow Directions: Good Speech Pattern: Spontaneous Speech Memory Description: Intact Hallucinations: None Delusions: Not Present Perceptual Disturbances: Derealization Thought Process: Rumination and Goal Oriented Thought Content: positive for Perseveration Depressive Symptoms: Increased Anxiety and Low Self Esteem Judgement: Good Diagnostics Vital Signs (24Hr): Vital Signs - 24 hr 02/16/23 16:15 02/16/23 18:23 02/17/23 08:40 Temperature 97.6 F 97.2 F 97.9 F Pulse Rate 67 64 97 Respiratory Rate 16 Blood Pressure 149/83 H 127/73 164/83 H Pulse Oximetry 98 98 Oxygen Delivery Method Room Air Room Air BMI result Body Mass Index 35.2 Labs 02/11/23 11:58 02/14/23 08:24 Medications Medications Current Medications Acetaminophen (Acetaminophen 325 Mg Tablet) 650 mg PO Q6H PRN PRN Reason: Headache/Pain Mild Scale (1-3) Al Hydroxide/Mg Hydroxide (Magnesium Hydrox/Alum Hydrox 30 Ml Oral.Susp) 30 ml PO Q6H PRN PRN Reason: Heartburn/Nausea Amoxicillin (Amoxicillin 250 Mg Capsule) 250 mg PO Q12H [facility] Last Admin: 02/17/23 08:45 Dose: 250 mg Amphetamine/Dextroamphetamine (Dextroamphetamine/Amphetamine Xr 10 Mg Cap.Er.24h) 30 mg PO DAILY [facility] Last Admin: 02/17/23 08:45 Dose: 30 mg Benzocaine (Benzocaine 20 % Oral Gel 9 Gm Tube) 1 appl MUCOUS MEM TID PRN; Protocol PRN Reason: toothache Last Admin: 02/17/23 10:07 Dose: 1 appl Bupropion HCl (Bupropion Hcl Xl 300 Mg Tab.Er.24h) 300 mg PO DAILY [facility] Last Admin: 02/17/23 08:45 Dose: 300 mg Escitalopram Oxalate (Escitalopram Oxalate 20 Mg Tablet) 20 mg PO DAILY [facility] Last Admin: 02/17/23 08:45 Dose: 20 mg Gabapentin (Gabapentin 600 Mg Tablet) 600 mg PO TID [facility] Last Admin: 02/17/23 08:45 Dose: 600 mg Hydroxyzine HCl (Hydroxyzine Hcl 50 Mg Tablet) 50 mg PO TID [facility] Last Admin: 02/17/23 08:45 Dose: 50 mg Hydroxyzine HCl (Hydroxyzine Hcl 25 Mg Tablet) 25 mg PO Q6H PRN PRN Reason: Anxiety Lorazepam (Lorazepam 1 Mg Tablet) 1 mg PO Q4H PRN PRN Reason: Alcohol Withdrawal Last Admin: 02/17/23 10:07 Dose: 1 mg Magnesium Hydroxide (Milk Of Magnesia 30 Ml Oral.Susp) 30 ml PO DAILY PRN PRN Reason: Constipation Methadone HCl (Methadone Hcl 20 Mg/2 Ml Oral.Conc) 170 mg PO DAILY [facility] Last Admin: 02/17/23 08:48 Dose: 170 mg Multi-Ingred Cream/Lotion/Oil/Oint (Mineral Oil/Petrolatum,White 106 Gm Tube) 1 appl TOPICAL BID [facility]; Protocol Last Admin: 02/17/23 09:04 Dose: 1 appl Multivitamins/Vitamin C (Multivitamin Tablet) 1 tab PO DAILY [facility] Last Admin: 02/17/23 08:48 Dose: Not Given Pharmacy Consult (Consult Rx Perform Med Rec) 1 each MISCELLANE ONCE PRN PRN Reason: Consult order Promethazine HCl (Promethazine Hcl 25 Mg Tablet) 25 mg PO Q8H PRN PRN Reason: gi disress Last Admin: 02/16/23 16:22 Dose: 25 mg Propranolol HCl (Propranolol Hcl 10 Mg Tablet) 10 mg PO 0900,1500 [facility]; Protocol Last Admin: 02/17/23 08:45 Dose: 10 mg Quetiapine Fumarate (Quetiapine Fumarate 100 Mg Tablet) 100 mg PO BEDTIME [facility] Last Admin: 02/16/23 20:47 Dose: 100 mg Thiamine HCl (Thiamine Hcl 100 Mg Tablet) 100 mg PO DAILY [facility] Last Admin: 02/17/23 08:45 Dose: 100 mg Allergies Allergies Allergy/AdvReac Type Severity Reaction Status Date / Time capsaicin AdvReac Severe Burning Verified 02/11/23 09:45 sensation Assessment & Plan Assessment & Plan (1) Polysubstance (including opioids) dependence, daily use: Status: Acute Code(s): F11.20 - Opioid dependence, uncomplicated; F19.20 - Other psychoactive substance dependence, uncomplicated (2) Suicidal ideations: Status: Acute Code(s): R45.851 - Suicidal ideations (3) ADHD: Status: Acute Code(s): F90.9 - Attention-deficit hyperactivity disorder, unspecified type (4) Opioid use disorder, severe, on maintenance therapy: Status: Acute Code(s): F11.20 - Opioid dependence, uncomplicated (5) MDD (major depressive disorder), recurrent episode, moderate: Status: Acute Code(s): F33.1 - Major depressive disorder, recurrent, moderate Plan 42 yo male, history of depression, polysubstance use disorder, to ER with SI, relapse after being asked to leave [facility] due to violation of rules. Pt reports anxiety as a major sx. Plan: Discontinue Clonidine Propranolol 10 mg bid Increase Lexapro to 20 mg daily Amoxicillin 250 mg bid-dental fracture Sodium corrected, today 138, BUN 27 - 9 today, WBC 15.2-?sunburn, ?dental abscess. Collateral contacts Aftercare planning. 02/16/23- Promethazine 25 mg q8h prn gastric distress/nausea 02/17: Continue current regimen and plans. Reason for continued inpatient stay Substantial Risk for: med/psych decompensation Time Spent With Patient Time: Total time managing care of this patient today ____ minutes.
[2023-02-17 15:00] VITALS: BP 168/100; PULSE 78
[2023-02-17 18:00] VITALS: BP 124/84; PULSE 78; TEMP 35.8; O2SAT 95
[2023-02-17] MEDS: QUEtiapine Fumarate 100 MG TABLET PO (20:27)
[2023-02-17] MEDS: Promethazine HCL 25 MG TABLET PO (22:03)
[2023-02-18] MEDS: Dextroamphetamine/Amphetamine XR 10 MG CAP.ER.24H 30 MG PO (08:54)
[2023-02-18] MEDS: Multivitamin TABLET 1 TAB PO (08:54)
[2023-02-18] MEDS: Gabapentin 600 MG TABLET PO ×3 (08:54→19:53)
[2023-02-18] MEDS: hydrOXYzine HCL 50 MG TABLET PO ×3 (08:54→19:53)
[2023-02-18] MEDS: buPROPion HCl XL 300 MG TAB.ER.24H PO (08:54)
[2023-02-18] MEDS: Propranolol HCL 20 MG TABLET PO ×2 (08:54→14:58)
[2023-02-18] MEDS: Thiamine HCL 100 MG TABLET PO (08:54)
[2023-02-18] MEDS: Escitalopram Oxalate 20 MG TABLET PO (08:54)
[2023-02-18 08:55] VITALS: BP 132/79; PULSE 98; RESP 16; TEMP 36.5; O2SAT 98
[2023-02-18] MEDS: methADONE HCl 20 MG/2 ML ORAL.CONC 170 MG PO (08:57)
[2023-02-18] MEDS: Promethazine HCL 25 MG TABLET PO ×2 (10:25→20:59)
[2023-02-18] MEDS: LORazepam 1 MG TABLET PO ×3 (10:25→20:59)
[2023-02-18] MEDS: Benzocaine 20 % Oral Gel 9 GM TUBE 1 APPL MUCOUS MEM (10:26)
--- NOTE | 2023-02-18 11:07 | HO.PSYCHPN ---
Subjective Subjective Date of Service: 02/18/23 Reason For Visit: Major depression, SI, polysubstance use, opiate us Subjective Notes: Conditional Voluntary Healthcare Proxy: No Guardianship: No Medical Problems Affecting Mental Status: No Interim History: Patient was seen and discussed in rounds today. Records and plans were reviewed. He continues to be doing fairly well and has been stable. He is visible, social and interactive. No complaints or side effects. No SI. No changes were made today Medication Compliance: Yes Review of Systems Review of Systems Yes all other systems are reviewed and are negative Diagnostics Vital Signs (24Hr): Vital Signs - 24 hr 02/17/23 15:00 02/17/23 18:00 02/18/23 08:55 Temperature 96.5 F L 97.7 F Pulse Rate 78 78 98 Respiratory Rate 16 Blood Pressure 168/100 H 124/84 132/79 Pulse Oximetry 95 98 Oxygen Delivery Method Room Air Room Air BMI result Body Mass Index 35.2 Labs 02/11/23 11:58 02/14/23 08:24 Medications Medications Current Medications Acetaminophen (Acetaminophen 325 Mg Tablet) 650 mg PO Q6H PRN PRN Reason: Headache/Pain Mild Scale (1-3) Al Hydroxide/Mg Hydroxide (Magnesium Hydrox/Alum Hydrox 30 Ml Oral.Susp) 30 ml PO Q6H PRN PRN Reason: Heartburn/Nausea Amoxicillin (Amoxicillin 250 Mg Capsule) 250 mg PO Q12H [facility] Last Admin: 02/18/23 08:54 Dose: 250 mg Amphetamine/Dextroamphetamine (Dextroamphetamine/Amphetamine Xr 10 Mg Cap.Er.24h) 30 mg PO DAILY [facility] Last Admin: 02/18/23 08:54 Dose: 30 mg Benzocaine (Benzocaine 20 % Oral Gel 9 Gm Tube) 1 appl MUCOUS MEM TID PRN; Protocol PRN Reason: toothache Last Admin: 02/18/23 10:26 Dose: 1 appl Bupropion HCl (Bupropion Hcl Xl 300 Mg Tab.Er.24h) 300 mg PO DAILY [facility] Last Admin: 02/18/23 08:54 Dose: 300 mg Escitalopram Oxalate (Escitalopram Oxalate 20 Mg Tablet) 20 mg PO DAILY [facility] Last Admin: 02/18/23 08:54 Dose: 20 mg Gabapentin (Gabapentin 600 Mg Tablet) 600 mg PO TID [facility] Last Admin: 02/18/23 08:54 Dose: 600 mg Hydroxyzine HCl (Hydroxyzine Hcl 50 Mg Tablet) 50 mg PO TID [facility] Last Admin: 02/18/23 08:54 Dose: 50 mg Hydroxyzine HCl (Hydroxyzine Hcl 25 Mg Tablet) 25 mg PO Q6H PRN PRN Reason: Anxiety Lorazepam (Lorazepam 1 Mg Tablet) 1 mg PO Q4H PRN PRN Reason: Alcohol Withdrawal Last Admin: 02/18/23 10:25 Dose: 1 mg Magnesium Hydroxide (Milk Of Magnesia 30 Ml Oral.Susp) 30 ml PO DAILY PRN PRN Reason: Constipation Methadone HCl (Methadone Hcl 20 Mg/2 Ml Oral.Conc) 170 mg PO DAILY [facility] Last Admin: 02/18/23 08:57 Dose: 170 mg Multi-Ingred Cream/Lotion/Oil/Oint (Mineral Oil/Petrolatum,White 106 Gm Tube) 1 appl TOPICAL BID [facility]; Protocol Last Admin: 02/18/23 09:08 Dose: Not Given Multivitamins/Vitamin C (Multivitamin Tablet) 1 tab PO DAILY [facility] Last Admin: 02/18/23 08:54 Dose: 1 tab Pharmacy Consult (Consult Rx Perform Med Rec) 1 each MISCELLANE ONCE PRN PRN Reason: Consult order Promethazine HCl (Promethazine Hcl 25 Mg Tablet) 25 mg PO Q8H PRN PRN Reason: gi disress Last Admin: 02/18/23 10:25 Dose: 25 mg Propranolol HCl (Propranolol Hcl 20 Mg Tablet) 20 mg PO 0900,1500 [facility]; Protocol Last Admin: 02/18/23 08:54 Dose: 20 mg Quetiapine Fumarate (Quetiapine Fumarate 100 Mg Tablet) 100 mg PO BEDTIME [facility] Last Admin: 02/17/23 20:27 Dose: 100 mg Thiamine HCl (Thiamine Hcl 100 Mg Tablet) 100 mg PO DAILY [facility] Last Admin: 02/18/23 08:54 Dose: 100 mg Allergies Allergies Allergy/AdvReac Type Severity Reaction Status Date / Time capsaicin AdvReac Severe Burning Verified 02/11/23 09:45 sensation Assessment & Plan Assessment & Plan (1) Polysubstance (including opioids) dependence, daily use: Status: Acute Code(s): F11.20 - Opioid dependence, uncomplicated; F19.20 - Other psychoactive substance dependence, uncomplicated (2) Suicidal ideations: Status: Acute Code(s): R45.851 - Suicidal ideations (3) ADHD: Status: Acute Code(s): F90.9 - Attention-deficit hyperactivity disorder, unspecified type (4) Opioid use disorder, severe, on maintenance therapy: Status: Acute Code(s): F11.20 - Opioid dependence, uncomplicated (5) MDD (major depressive disorder), recurrent episode, moderate: Status: Acute Code(s): F33.1 - Major depressive disorder, recurrent, moderate Plan 42 yo male, history of depression, polysubstance use disorder, to ER with SI, relapse after being asked to leave [facility] due to violation of rules. Pt reports anxiety as a major sx. Plan: Discontinue Clonidine Propranolol 10 mg bid Increase Lexapro to 20 mg daily Amoxicillin 250 mg bid-dental fracture Sodium corrected, today 138, BUN 27 - 9 today, WBC 15.2-?sunburn, ?dental abscess. Collateral contacts Aftercare planning. 02/16/23- Promethazine 25 mg q8h prn gastric distress/nausea 02/17: Continue current regimen and plans. 02/18: Continue current plans and regimen Reason for continued inpatient stay Substantial Risk for: med/psych decompensation Time Spent With Patient Time: Total time managing care of this patient today ____ minutes.
[2023-02-18 14:59] VITALS: BP 138/79; PULSE 73
[2023-02-18 18:00] VITALS: BP 142/88; PULSE 74; RESP 16; TEMP 36.6; O2SAT 97
[2023-02-18] MEDS: QUEtiapine Fumarate 100 MG TABLET PO (19:53)
[2023-02-19 08:53] VITALS: BP 133/86; PULSE 72; RESP 16; TEMP 37.1; O2SAT 96
[2023-02-19] MEDS: Gabapentin 600 MG TABLET PO ×2 (08:55→19:45)
[2023-02-19] MEDS: Dextroamphetamine/Amphetamine XR 10 MG CAP.ER.24H 30 MG PO (08:55)
[2023-02-19] MEDS: hydrOXYzine HCL 50 MG TABLET PO ×2 (08:56→19:45)
[2023-02-19] MEDS: methADONE HCl 20 MG/2 ML ORAL.CONC 170 MG PO (08:56)
[2023-02-19] MEDS: buPROPion HCl XL 300 MG TAB.ER.24H PO (08:56)
[2023-02-19] MEDS: Escitalopram Oxalate 20 MG TABLET PO (08:56)
[2023-02-19] MEDS: Multivitamin TABLET 1 TAB PO (08:56)
[2023-02-19] MEDS: Thiamine HCL 100 MG TABLET PO (08:56)
[2023-02-19] MEDS: Propranolol HCL 20 MG TABLET PO (08:56)
[2023-02-19] MEDS: Promethazine HCL 25 MG TABLET PO ×2 (13:20→19:45)
--- NOTE | 2023-02-19 15:35 | P.PNPSI_ITS ---
Subjective Subjective Date of Service: 02/19/23 Reason For Visit: Major depression, SI, polysubstance use, opiate us Interim History: sleeping seated in a chair in TV room, rousable to loud voice, 3:30 pm. states he is feeling anxious and requests something for his anxiety. MD notes recent increase in lexapro dosing and defers and further med changes for anxiety until return of attending, as pt did not appear to be overwrought with anxiety, but rather a bit sedated. Mental Status Exam Mental Status Exam Patient Appearance: Appropriate Patient Orientation: Person, Place, Time and Situation Level of Consciousness: Alert Patient Behavior: Talkative and Good Eye Contact Mood Description: Anxious Affect Description: Constricted Patient Cognition Impaired: No Ability to Follow Directions: Good Speech Pattern: Spontaneous Speech Memory Description: Intact Hallucinations: None Delusions: Not Present Perceptual Disturbances: Derealization Thought Process: Rumination and Goal Oriented Thought Content: positive for Perseveration Depressive Symptoms: Increased Anxiety and Low Self Esteem Judgement: Good Diagnostics Vital Signs (24Hr): Vital Signs - 24 hr 02/18/23 18:00 02/19/23 08:53 Temperature 97.8 F 98.7 F Pulse Rate 74 72 Respiratory Rate 16 16 Blood Pressure 142/88 H 133/86 Pulse Oximetry 97 96 Oxygen Delivery Method Room Air Room Air BMI result Body Mass Index 35.2 Labs 02/11/23 11:58 02/14/23 08:24 Medications Medications Current Medications Acetaminophen (Acetaminophen 325 Mg Tablet) 650 mg PO Q6H PRN PRN Reason: Headache/Pain Mild Scale (1-3) Al Hydroxide/Mg Hydroxide (Magnesium Hydrox/Alum Hydrox 30 Ml Oral.Susp) 30 ml PO Q6H PRN PRN Reason: Heartburn/Nausea Amoxicillin (Amoxicillin 250 Mg Capsule) 250 mg PO Q12H [facility] Last Admin: 02/19/23 08:55 Dose: 250 mg Amphetamine/Dextroamphetamine (Dextroamphetamine/Amphetamine Xr 10 Mg Cap.Er.24h) 30 mg PO DAILY [facility] Last Admin: 02/19/23 08:55 Dose: 30 mg Benzocaine (Benzocaine 20 % Oral Gel 9 Gm Tube) 1 appl MUCOUS MEM TID PRN; Protocol PRN Reason: toothache Last Admin: 02/18/23 10:26 Dose: 1 appl Bupropion HCl (Bupropion Hcl Xl 300 Mg Tab.Er.24h) 300 mg PO DAILY [facility] Last Admin: 02/19/23 08:56 Dose: 300 mg Escitalopram Oxalate (Escitalopram Oxalate 20 Mg Tablet) 20 mg PO DAILY [facility] Last Admin: 02/19/23 08:56 Dose: 20 mg Gabapentin (Gabapentin 600 Mg Tablet) 600 mg PO TID [facility] Last Admin: 02/19/23 15:08 Dose: Not Given Hydroxyzine HCl (Hydroxyzine Hcl 50 Mg Tablet) 50 mg PO TID [facility] Last Admin: 02/19/23 15:08 Dose: Not Given Hydroxyzine HCl (Hydroxyzine Hcl 25 Mg Tablet) 25 mg PO Q6H PRN PRN Reason: Anxiety Lorazepam (Lorazepam 1 Mg Tablet) 1 mg PO Q4H PRN PRN Reason: Anxiety Last Admin: 02/18/23 20:59 Dose: 1 mg Magnesium Hydroxide (Milk Of Magnesia 30 Ml Oral.Susp) 30 ml PO DAILY PRN PRN Reason: Constipation Methadone HCl (Methadone Hcl 20 Mg/2 Ml Oral.Conc) 170 mg PO DAILY [facility] Last Admin: 02/19/23 08:56 Dose: 170 mg Multi-Ingred Cream/Lotion/Oil/Oint (Mineral Oil/Petrolatum,White 106 Gm Tube) 1 appl TOPICAL BID [facility]; Protocol Last Admin: 02/19/23 09:23 Dose: Not Given Multivitamins/Vitamin C (Multivitamin Tablet) 1 tab PO DAILY [facility] Last Admin: 02/19/23 08:56 Dose: 1 tab Pharmacy Consult (Consult Rx Perform Med Rec) 1 each MISCELLANE ONCE PRN PRN Reason: Consult order Promethazine HCl (Promethazine Hcl 25 Mg Tablet) 25 mg PO Q8H PRN PRN Reason: gi disress Last Admin: 02/19/23 13:20 Dose: 25 mg Propranolol HCl (Propranolol Hcl 20 Mg Tablet) 20 mg PO 0900,1500 [facility]; Protocol Last Admin: 02/19/23 15:08 Dose: Not Given Quetiapine Fumarate (Quetiapine Fumarate 100 Mg Tablet) 100 mg PO BEDTIME [facility] Last Admin: 02/18/23 19:53 Dose: 100 mg Thiamine HCl (Thiamine Hcl 100 Mg Tablet) 100 mg PO DAILY [facility] Last Admin: 02/19/23 08:56 Dose: 100 mg Allergies Allergies Allergy/AdvReac Type Severity Reaction Status Date / Time capsaicin AdvReac Severe Burning Verified 02/11/23 09:45 sensation Assessment & Plan Assessment & Plan (1) Polysubstance (including opioids) dependence, daily use: Status: Acute Code(s): F11.20 - Opioid dependence, uncomplicated; F19.20 - Other psychoactive substance dependence, uncomplicated (2) Suicidal ideations: Status: Acute Code(s): R45.851 - Suicidal ideations (3) ADHD: Status: Acute Code(s): F90.9 - Attention-deficit hyperactivity disorder, unspecified type (4) Opioid use disorder, severe, on maintenance therapy: Status: Acute Code(s): F11.20 - Opioid dependence, uncomplicated (5) MDD (major depressive disorder), recurrent episode, moderate: Status: Acute Code(s): F33.1 - Major depressive disorder, recurrent, moderate Plan 42 yo male, history of depression, polysubstance use disorder, to ER with SI, relapse after being asked to leave [facility] due to violation of rules. Pt reports anxiety as a major sx. Plan: Discontinue Clonidine Propranolol 10 mg bid Increase Lexapro to 20 mg daily Amoxicillin 250 mg bid-dental fracture Sodium corrected, today 138, BUN 27 - 9 today, WBC 15.2-?sunburn, ?dental abscess. Collateral contacts Aftercare planning. 02/16/23- Promethazine 25 mg q8h prn gastric distress/nausea 02/17: Continue current regimen and plans. 02/18: Continue current plans and regimen 02/19: continue current mgmt. Reason for continued inpatient stay Substantial Risk for: inability to function and rapid decompensation Time Spent With Patient Time: Total time managing care of this patient today ____ minutes.
[2023-02-19 18:00] VITALS: BP 130/78; PULSE 78; RESP 16
[2023-02-19] MEDS: LORazepam 1 MG TABLET PO (18:38)
[2023-02-19] MEDS: QUEtiapine Fumarate 100 MG TABLET PO (19:45)
[2023-02-20 08:01] VITALS: BP 144/83; PULSE 84; RESP 16; TEMP 36.8; O2SAT 96
[2023-02-20] MEDS: Promethazine HCL 25 MG TABLET PO ×2 (08:18→17:09)
[2023-02-20] MEDS: hydrOXYzine HCL 50 MG TABLET PO ×3 (08:18→20:04)
[2023-02-20] MEDS: methADONE HCl 20 MG/2 ML ORAL.CONC 170 MG PO (08:18)
[2023-02-20] MEDS: Multivitamin TABLET 1 TAB PO (08:18)
[2023-02-20] MEDS: Gabapentin 600 MG TABLET PO ×3 (08:19→20:03)
[2023-02-20] MEDS: Propranolol HCL 20 MG TABLET PO ×2 (08:19→14:37)
[2023-02-20] MEDS: Escitalopram Oxalate 20 MG TABLET PO (08:19)
[2023-02-20] MEDS: Dextroamphetamine/Amphetamine XR 10 MG CAP.ER.24H 30 MG PO (08:19)
[2023-02-20] MEDS: buPROPion HCl XL 300 MG TAB.ER.24H PO (08:19)
[2023-02-20] MEDS: Thiamine HCL 100 MG TABLET PO (08:19)
[2023-02-20] MEDS: Benzocaine 20 % Oral Gel 9 GM TUBE 1 APPL MUCOUS MEM ×2 (08:24→13:13)
[2023-02-20] MEDS: LORazepam 1 MG TABLET PO ×3 (13:13→21:13)
[2023-02-20 14:36] VITALS: BP 122/91
[2023-02-20 16:10] VITALS: BP 121/76; PULSE 75; TEMP 35.7
--- NOTE | 2023-02-20 16:28 | P.PNPSI_ITS ---
Subjective Subjective Date of Service: 02/20/23 Reason For Visit: Major depression, SI, polysubstance use, opiate us Subjective Notes: Conditional Voluntary Healthcare Proxy: No Guardianship: No Medical Problems Affecting Mental Status: No Interim History: Norbert continues to participate in a search for ongoing rehab program. Later in the day, he was notified that he has an interview with [facility] for admission 02/21. He is pleased with this option and believes it will help him to obtain a longer period of sobriety and help him to become stronger and more stable. Review of medications which he believes are effective. Discussed having consistent GI follow up upon discharge for sx. He has initiated an assessment in [place] and will follow up with this practice by phone for ongoing treatment instruction and possible transfer to a local provider. Medication Compliance: Yes Side effects from medications: No Attending Groups: Intermittent Review of Systems Acute medical concerns: No Medical Review of Systems: unchanged Mental Status Exam Mental Status Exam Patient Appearance: Appropriate Patient Orientation: Person, Place, Time and Situation Level of Consciousness: Alert Patient Behavior: Appropriate, Talkative, Cooperative and Good Eye Contact Mood Description: Appropriate Affect Description: Appropriate Patient Cognition Impaired: No Ability to Follow Directions: Good Speech Pattern: Clear, Appropriate and Spontaneous Speech Memory Description: Intact Hallucinations: None Delusions: Not Present Thought Process: Intact and Goal Oriented Thought Content: positive for Intact and positive for Goal Oriented Judgement: Good Diagnostics Vital Signs (24Hr): Vital Signs - 24 hr 02/19/23 18:00 02/20/23 08:01 02/20/23 14:36 Temperature 98.3 F Pulse Rate 78 84 Respiratory Rate 16 16 Blood Pressure 130/78 144/83 H 122/91 H Pulse Oximetry 96 Oxygen Delivery Method Room Air Room Air BMI result Body Mass Index 35.2 Labs 02/11/23 11:58 02/14/23 08:24 Medications Medications Current Medications Acetaminophen (Acetaminophen 325 Mg Tablet) 650 mg PO Q6H PRN PRN Reason: Headache/Pain Mild Scale (1-3) Al Hydroxide/Mg Hydroxide (Magnesium Hydrox/Alum Hydrox 30 Ml Oral.Susp) 30 ml PO Q6H PRN PRN Reason: Heartburn/Nausea Amoxicillin (Amoxicillin 250 Mg Capsule) 250 mg PO Q12H [facility] Last Admin: 02/20/23 08:19 Dose: 250 mg Amphetamine/Dextroamphetamine (Dextroamphetamine/Amphetamine Xr 10 Mg Cap.Er.24h) 30 mg PO DAILY [facility] Last Admin: 02/20/23 08:19 Dose: 30 mg Benzocaine (Benzocaine 20 % Oral Gel 9 Gm Tube) 1 appl MUCOUS MEM TID PRN; Protocol PRN Reason: toothache Last Admin: 02/20/23 13:13 Dose: 1 appl Bupropion HCl (Bupropion Hcl Xl 300 Mg Tab.Er.24h) 300 mg PO DAILY [facility] Last Admin: 02/20/23 08:19 Dose: 300 mg Escitalopram Oxalate (Escitalopram Oxalate 20 Mg Tablet) 20 mg PO DAILY [facility] Last Admin: 02/20/23 08:19 Dose: 20 mg Gabapentin (Gabapentin 600 Mg Tablet) 600 mg PO TID [facility] Last Admin: 02/20/23 14:38 Dose: 600 mg Hydroxyzine HCl (Hydroxyzine Hcl 50 Mg Tablet) 50 mg PO TID [facility] Last Admin: 02/20/23 14:38 Dose: 50 mg Hydroxyzine HCl (Hydroxyzine Hcl 25 Mg Tablet) 25 mg PO Q6H PRN PRN Reason: Anxiety Lorazepam (Lorazepam 1 Mg Tablet) 1 mg PO Q4H PRN PRN Reason: Anxiety Last Admin: 02/20/23 13:13 Dose: 1 mg Magnesium Hydroxide (Milk Of Magnesia 30 Ml Oral.Susp) 30 ml PO DAILY PRN PRN Reason: Constipation Methadone HCl (Methadone Hcl 20 Mg/2 Ml Oral.Conc) 170 mg PO DAILY@0900 [facility] Last Admin: 02/20/23 08:18 Dose: 170 mg Multi-Ingred Cream/Lotion/Oil/Oint (Mineral Oil/Petrolatum,White 106 Gm Tube) 1 appl TOPICAL BID [facility]; Protocol Last Admin: 02/20/23 08:40 Dose: Not Given Multivitamins/Vitamin C (Multivitamin Tablet) 1 tab PO DAILY [facility] Last Admin: 02/20/23 08:18 Dose: 1 tab Pharmacy Consult (Consult Rx Perform Med Rec) 1 each MISCELLANE ONCE PRN PRN Reason: Consult order Promethazine HCl (Promethazine Hcl 25 Mg Tablet) 25 mg PO Q8H PRN PRN Reason: gi disress Last Admin: 02/20/23 08:18 Dose: 25 mg Propranolol HCl (Propranolol Hcl 20 Mg Tablet) 20 mg PO 0900,1500 [facility]; Protocol Last Admin: 02/20/23 14:37 Dose: 20 mg Quetiapine Fumarate (Quetiapine Fumarate 100 Mg Tablet) 100 mg PO BEDTIME [facility] Last Admin: 02/19/23 19:45 Dose: 100 mg Thiamine HCl (Thiamine Hcl 100 Mg Tablet) 100 mg PO DAILY [facility] Last Admin: 02/20/23 08:19 Dose: 100 mg Allergies Allergies Allergy/AdvReac Type Severity Reaction Status Date / Time capsaicin AdvReac Severe Burning Verified 02/11/23 09:45 sensation Assessment & Plan Assessment & Plan (1) Polysubstance (including opioids) dependence, daily use: Status: Acute Code(s): F11.20 - Opioid dependence, uncomplicated; F19.20 - Other psychoactive substance dependence, uncomplicated (2) Suicidal ideations: Status: Acute Code(s): R45.851 - Suicidal ideations (3) ADHD: Status: Acute Code(s): F90.9 - Attention-deficit hyperactivity disorder, unspecified type (4) Opioid use disorder, severe, on maintenance therapy: Status: Acute Code(s): F11.20 - Opioid dependence, uncomplicated (5) MDD (major depressive disorder), recurrent episode, moderate: Status: Acute Code(s): F33.1 - Major depressive disorder, recurrent, moderate Plan 42 yo male, history of depression, polysubstance use disorder, to ER with SI, relapse after being asked to leave [facility] due to violation of rules. Pt reports anxiety as a major sx. Plan: Discontinue Clonidine Propranolol 10 mg bid Increase Lexapro to 20 mg daily Amoxicillin 250 mg bid-dental fracture Sodium corrected, today 138, BUN 27 - 9 today, WBC 15.2-?sunburn, ?dental abscess. Collateral contacts Aftercare planning. 02/16/23- Promethazine 25 mg q8h prn gastric distress/nausea 02/17: Continue current regimen and plans. 02/18: Continue current plans and regimen 02/19: continue current mgmt. 02/20: Probable discharge 02/21. No changes at this time Patient educated on: medication risk/benefits and therapeutic strategies Informed Consent: understands Reason for continued inpatient stay Substantial Risk for: stable for discharge Time Spent With Patient Time: Total time managing care of this patient today ____ minutes.
[2023-02-20] MEDS: QUEtiapine Fumarate 100 MG TABLET PO (20:03)
[2023-02-21 07:55] VITALS: BP 154/78; PULSE 73; RESP 16; TEMP 36.5; O2SAT 96
[2023-02-21] MEDS: Multivitamin TABLET 1 TAB PO (08:00)
[2023-02-21] MEDS: Dextroamphetamine/Amphetamine XR 10 MG CAP.ER.24H 30 MG PO (08:00)
[2023-02-21] MEDS: Gabapentin 600 MG TABLET PO (08:00)
[2023-02-21] MEDS: buPROPion HCl XL 300 MG TAB.ER.24H PO (08:00)
[2023-02-21] MEDS: Escitalopram Oxalate 20 MG TABLET PO (08:00)
[2023-02-21] MEDS: Thiamine HCL 100 MG TABLET PO (08:00)
[2023-02-21] MEDS: hydrOXYzine HCL 50 MG TABLET PO (08:01)
[2023-02-21] MEDS: Propranolol HCL 20 MG TABLET PO (08:01)
[2023-02-21] MEDS: Promethazine HCL 25 MG TABLET PO (08:06)
[2023-02-21] MEDS: LORazepam 1 MG TABLET PO (08:06)
[2023-02-21] MEDS: methADONE HCl 20 MG/2 ML ORAL.CONC 170 MG PO (08:08)
--- NOTE | 2023-02-21 16:52 | PM.PSYDC ---
DS: Providers Provider Date of Service: 02/21/23 Date of admission: 02/13/23 14:00 Date of discharge: 02/21/23 Primary care physician: Penny Physician Admitting clinician: Cathie Blake Attending physician on admission: Martin Loredo Attending physician on discharge: Martin Loredo Discharging clinician: Cathie Blake DS: Diagnosis Discharge Diagnosis (1) Polysubstance (including opioids) dependence, daily use: Status: Acute (2) Suicidal ideations: Status: Resolved (3) ADHD: Status: Acute (4) Opioid use disorder, severe, on maintenance therapy: Status: Acute (5) MDD (major depressive disorder), recurrent episode, moderate: Status: Acute DS: Medications Discharge Medications Home Medications: Home Medications Medication Instructions Recorded Confirmed methadone 10 mg/5 mL oral solution 170 mg PO DAILY 02/12/23 02/12/23 Previous Rx's Medication Instructions Recorded amoxicillin 250 mg capsule 250 mg PO Q12H #14 caps 02/20/23 benzocaine 20 % mucosal gel 1 appl mucous membrane TID PRN 02/20/23 (Anbesol (benzocaine) Maximum toothache #9 grams Strength) bupropion HCl 300 mg 24 hr tablet, 300 mg PO DAILY #30 tabs 02/20/23 extended release dextroamphetamine-amphetamine ER 1 cap PO QAM #30 caps 02/20/23 30 mg 24hr capsule,extend release (Adderall XR) escitalopram oxalate 20 mg tablet 20 mg PO DAILY #30 tabs 02/20/23 gabapentin 600 mg tablet 600 mg PO TID #90 tabs 02/20/23 hydroxyzine HCl 50 mg tablet 50 mg PO TID #90 tabs 02/20/23 multivitamin (Daily-Haily tablet) 1 tab PO DAILY #30 tabs 02/20/23 naloxone 4 mg/actuation nasal 4 mg intranasal Q2M PRN opioid 02/20/23 spray (Narcan) overdose #2 ea propranolol 20 mg tablet 20 mg PO 0900,1500 #60 tabs 02/20/23 quetiapine 50 mg tablet 100 mg PO BEDTIME #30 tabs 02/20/23 thiamine mononitrate (vit B1) 100 100 mg PO DAILY #30 tabs 02/20/23 mg tablet Mental Status Exam Mental Status Exam Patient Appearance: Appropriate Patient Orientation: Person, Place, Time and Situation Level of Consciousness: Alert Patient Behavior: Appropriate, Talkative, Cooperative and Good Eye Contact Mood Description: Appropriate Affect Description: Appropriate Patient Cognition Impaired: No Ability to Follow Directions: Good Speech Pattern: Clear, Appropriate and Spontaneous Speech Memory Description: Intact Hallucinations: None Delusions: Not Present Thought Process: Intact and Goal Oriented Thought Content: positive for Intact and positive for Goal Oriented Judgement: Good Data Data Completed and Pending Completed studies during hospitalization [Text1]: 02/13/23 18:20 Urine clean catch - Clean Catch Midstream Urine Culture - Final No growth. DS: Summary Hospital Course Hospital Course: Admission to adult psychiatry for exacerbation of symptoms of recurrent major depression, polysubstance use relapse with termination from his residential program. Tiros was re-established on his regime. Clonidine was discontinued and low dose Propranolol was initiated to address sx of anxiety. Escitalopram was increased to 20 mg daily. Norbert was active in application for ongoing treatment and was able to secure a placement prior to his discharge. Time spent discussing smoking cessation with patient: 3 to 10 minutes Status at Discharge Functional status at discharge: independent ambulation Overall status at discharge: patient is back to baseline Time Spent with Patient Time attestation: Total time managing care of this patient today ____ minutes. Time spent: Greater than 30 minutes Discharge Plan Discharge Anticipated Discharge Date/Time: 02/21/23 09:37 Patient Disposition: Xfer Other Discharge Diagnosis: Recurrent major depression Opiate Use Disorder Polysubstance Use Disorder ADHD Referrals: [facility] [Other] - 02/23/23 10:00 am (Hospital Discharge Appointment with psychiatric medication provider.) Correction Officer: Sj ([facility] [employer]) [Other] - 1 Week (Call as needed for support and assistance in making any referrals or to access any resources needed) [facility] [Other] - 02/21/23 9:00 am (Patient accepted to [facility] for substance use treatment ) [facility] [Other] - 1 Week (Referral to [facility] for substance use treatment.) [facility] [Other] - 1 Week (Referral for Substance abuse treatment ) [facility] [Other] (Walk in if needed) Discharge Medications: New amoxicillin 250 mg Capsule 250 mg PO Q12H Qty: 14 0RF propranolol 20 mg Tablet 20 mg PO 0900,1500 Qty: 60 0RF Protocol: Hold for SBP/HR < HOLD for SBP < : 90 HOLD for HR < : 60 Anbesol (benzocaine) Max Str 20 % Gel 1 appl mucous membrane TID PRN (Reason: toothache) Qty: 9 0RF Protocol: Apply to: Apply to: teeth/gums escitalopram oxalate 20 mg Tablet 20 mg PO DAILY Qty: 30 0RF multivitamin [Daily-Haily] Tablet 1 tab PO DAILY Qty: 30 0RF thiamine mononitrate (vit B1) 100 mg Tablet 100 mg PO DAILY Qty: 30 0RF naloxone [Narcan] 4 mg/actuation spray,non-aerosol 4 mg intranasal Q2M PRN (Reason: opioid overdose) Qty: 2 0RF Rx Instructions: spray 1 dose into ONE nostril; alternate nostrils w each dose until help arrives Continued methadone 10 mg/5 mL Solution 170 mg PO DAILY Patient Comments: Dose confirmed by Marifer @ [phone] gabapentin 600 mg tablet 600 mg PO TID Qty: 90 0RF hydroxyzine HCl 50 mg tablet 50 mg PO TID Qty: 90 0RF dextroamphetamine-amphetamine [Adderall XR] 30 mg capsule,extended release 24hr 1 cap PO QAM Qty: 30 0RF bupropion HCl 300 mg tablet extended release 24 hr 300 mg PO DAILY Qty: 30 0RF quetiapine 50 mg tablet 100 mg PO BEDTIME Qty: 30 0RF Discontinued clonidine HCl 0.2 mg tablet 0.2 mg PO TID escitalopram oxalate 10 mg tablet 10 mg PO DAILY Discharge Orders: Discharge Order (Routine); Ordered 02/20/23 Ordered By: Cathie Blake Diet: Advance to usual diet Activity on Discharge: As tolerated Stand Alone Forms: Patient Portal Discharge page, Community Support Care Plan Goals: Mood and Behavioral Stabilization Sobriety Health Concerns: Mood and Behavioral Stabilization Sobriety Plan of Treatment: Connect with out patient providers and residential team Maintain sobriety Take medications as directed Assessment: non suicidal, non homicidal non psychotic, non manic voluntary admission to [facility] Date/Time: 02/21/23 09:26
== END 2023-02-21 09:26 | disposition other institution (70) | DRG 751 ==
LOC: HO.ED 16:10 → HO.PM5 02-13 14:10
PROVIDERS: Admitting Provider Psychiatry & Neurology Psychiatry; Emergency Provider Emergency Medicine; Visit Provider Clinical Nurse Specialist Psychiatric/Mental Health, Adult
DX: F33.1 Major depressive disorder, recurrent, moderate (principal); R45.851 Suicidal ideations; F11.20 Opioid dependence, uncomplicated; F17.290 Nicotine dependence, other tobacco product, uncomplicated; F90.9 Attention-deficit hyperactivity disorder, unspecified type; F19.10 Other psychoactive substance abuse, uncomplicated; Z71.6 Tobacco abuse counseling; Z20.822 Contact with and (suspected) exposure to COVID-19; Z79.899 Other long term (current) drug therapy
CPT/HCPCS: 36415; 80048; 80053; 80061; 80307; 82077; 82607; 82746; 83036; 83735; 84439; 84443; 85025; 87086; 87635; 93005; 99285; S9485

== ENCOUNTER 2023-08-08 18:34 | Inpatient (IN) | payer MEDICAID, OTHER, SELFPAY ==
[2023-08-08] VITALS (8 sets, daily range): BP systolic 92–151; BP diastolic 0–79; PULSE 68–88; RESP 16–22; TEMP 36.6; O2SAT 97–100; BMI 35.5
--- NOTE | ~2023-08-08 | CT_ITS ---
EXAMINATION: CT head/brain wo IV con, CT cervical spine wo IV con CLINICAL INFORMATION: Multiple falls COMPARISON: CT head 09/01/2022 TECHNIQUE: Contiguous axial imaging was performed from the skull base to vertex without intravenous contrast. Sagittal and coronal reformatted images were obtained. Additional noncontrast CT cervical spine was performed. Coronal and sagittal reformations were provided. This CT examination was performed using dose optimization techniques as appropriate, variously including the following: * Automated exposure control * Adjustment of mA and/or kV according to patient size (this includes techniques or standardized protocols for targeted exams where dose is matched to indication/reason for exam; i.e. extremities or head) Use of iterative reconstruction technique DLP: 1346.56 mGy-cm mGy-cm FINDINGS: CT HEAD: Suboptimal evaluation with portions of the cerebellum and temporal lobes degraded by streak artifact. Within this constraint, no definite acute intracranial hemorrhage.No mass-effect or ventricular shift is noted. No acute, territorial loss of christopher-white differentiation. Stable ventricular caliber, mildly prominent for the patient's age. No depressed calvarial fracture. Complete opacification of the right maxillary sinus with mild polypoid mucosal thickening in the left maxillary sinus and additional scattered polypoid mucosal thickening in the paranasal sinuses. Right maxillary neoosteogenesis suggesting chronicity. The mastoid air cells are well-aerated.. The mastoid air cells are clear. CT CERVICAL SPINE: No prevertebral soft tissue swelling. The craniocervical junction is intact. Straightening of the normal cervical lordosis. There is no significant spondylolisthesis. Vertebral body heights are normal without acute compression fracture. No suspicious osseous lesion. Intervertebral disc space height loss is most prominent at C3-C4. Multilevel degenerative changes. Left upper lobe bulla/bleb. CT/CT cervical spine wo IV con IMPRESSION: Portions of the intracranial evaluation are degraded by beam hardening. Within this constraint, no definite acute intracranial hemorrhage. Nonspecific straightening of the normal cervical lordosis. No acute cervical spine fracture.
--- NOTE | 2023-08-08 18:46 | ECG_ITS ---
Test Reason : SYNCOPE Blood Pressure : / mmHG Vent. Rate : 077 BPM Atrial Rate : 077 BPM P-R Int : 152 ms QRS Dur : 114 ms QT Int : 410 ms P-R-T Axes : 064 -12 020 degrees QTc Int : 463 ms Normal sinus rhythm Incomplete right bundle branch block T wave abnormality, consider anterior ischemia Prolonged QT Abnormal ECG When compared with ECG of 11-FEB-2023 18:29, Vent. rate has increased BY 25 BPM Referred By: Jaida Soliz Electronically Signed By:NGOZI SALGUERO MD
[2023-08-08 19:40] LABS: Basophils Percent Auto 0.4 % (0-2); Hemoglobin 13.6 g/dl (14.0-18.0); Imm Gran Abs Auto 0.02 X10*3/uL (0.00-0.03); Imm Gran Pct Auto 0.3 % (0.0-0.4); MANUAL DIFF FLAG SCAN; Mean Platelet Volume 11.5 fL (9.4-12.4); PLT CLUMP 1; SCAN SMEAR FLAG 1
[2023-08-08 19:41] LABS: Eosinophils Absolute Auto 0.2 X10*3/uL (0.0-0.4); Eosinophils Percent Auto 2.2 % (0-4); Hematocrit 38.6 % (42.0-52.0); Lymphocytes Absolute Auto 2.4 X10*3/uL (1.2-4.9); Lymphocytes Percent Auto 34.4 % (20-40); Mean Corpuscular HGB Conc 35.2 g/dl (31.0-36.0); Monocytes Absolute Auto 0.8 X10*3/uL (0.1-1.2); Monocytes Percent Auto 12.2 % (2-11); Neutrophils Absolute Auto 3.5 x10*3/uL (2.0-8.3); Neutrophils Percent Auto 50.5 % (45-73); Red Blood Count 4.54 X10*6/uL (4.60-5.80); Red Cell Distribution Width 13.1 % (11.0-16.0)
[2023-08-08 19:44] LABS: Platelet Count 122 X10*3/uL (160-400); White Blood Count 6.9 X10*3/uL (4.8-10.8)
[2023-08-08 19:53] LABS: Prothrombin Time 12.6 SEC (11.1-13.3)
[2023-08-08 19:55] LABS: D Dimer High Sensitivity 294 NG/ML
[2023-08-08 20:06] LABS: Troponin-I High Sensitivity < 2.7 ng/L (<3.5-35.0)
[2023-08-08 20:15] LABS: TSH reflex Free T4 0.85 uIU/mL (0.32-4.0)
[2023-08-08 20:22] LABS: Alanine Aminotransferase 48 U/L (0-40); Albumin Level 4.4 g/dL (3.5-5.0); Alkaline Phosphatase 85 U/L (39-117); Anion Gap 15 (12-20); Aspartate Amino Transferase 72 U/L (5-37); Bilirubin Direct 0.4 mg/dL (0.0-0.5); Bilirubin Total 0.9 mg/dL (0.0-1.0); Blood Urea Nitrogen 9 mg/dL (9-16); Calcium 9.4 mg/dL (8.4-10.2); Carbon Dioxide 23 mmol/L (22-29); Chloride 104 mmol/L (96-108); Creatinine Clr Calc Pharmacy 108.6; Estimated Glomerular Filt Rate > 60; Ethanol < 10 mg/dL; Glucose Random 87 mg/dL (60-115); Magnesium 2.3 mg/dL (1.6-2.6); Potassium 2.9 mmol/L (3.3-5.1); Sodium 139 mmol/L (135-145); Total Protein 7.7 g/dL (6.5-8.0)
--- NOTE | 2023-08-08 21:05 | ED_ITS ---
HPI - Psych General Chief Complaint: Psychiatric Symptoms Stated Complaint: SI Time Seen by Provider: 08/08/23 18:41 Source: patient Mode of arrival: EMS Limitations: no limitations History of Present Illness HPI Narrative: Patient comes to the emergency room complaining of suicidal ideation, multiple syncopal episodes. Patient states that for the last few days, he has had multiple episodes of blacking out. Patient states that he is not sure if they are drug/ETOH related. EMS put a C-collar on the patient, brought him to the emergency room. Patient denies any headache, complaining of mild neck pain Related Data Home Medications Medication Instructions Recorded Confirmed methadone 10 mg/5 mL oral solution 170 mg PO DAILY 02/12/23 02/12/23 Previous Rx's Medication Instructions Recorded amoxicillin 250 mg capsule 250 mg PO Q12H #14 caps 02/20/23 benzocaine 20 % mucosal gel 1 appl mucous membrane TID PRN 02/20/23 (Anbesol (benzocaine) Maximum toothache #9 grams Strength) bupropion HCl 300 mg 24 hr tablet, 300 mg PO DAILY #30 tabs 02/20/23 extended release dextroamphetamine-amphetamine ER 1 cap PO QAM #30 caps 02/20/23 30 mg 24hr capsule,extend release (Adderall XR) escitalopram oxalate 20 mg tablet 20 mg PO DAILY #30 tabs 02/20/23 gabapentin 600 mg tablet 600 mg PO TID #90 tabs 02/20/23 hydroxyzine HCl 50 mg tablet 50 mg PO TID #90 tabs 02/20/23 multivitamin (Daily-Haily tablet) 1 tab PO DAILY #30 tabs 02/20/23 naloxone 4 mg/actuation nasal 4 mg intranasal Q2M PRN opioid 02/20/23 spray (Narcan) overdose #2 ea propranolol 20 mg tablet 20 mg PO 0900,1500 #60 tabs 02/20/23 quetiapine 50 mg tablet 100 mg (2 x 50 mg) PO BEDTIME #30 02/20/23 tabs thiamine mononitrate (vit B1) 100 100 mg PO DAILY #30 tabs 02/20/23 mg tablet Allergies Allergy/AdvReac Type Severity Reaction Status Date / Time capsaicin AdvReac Severe Burning Verified 02/11/23 09:45 sensation Review of Systems 2 Review of Systems: Constitutional : No Weight loss, No Fever, No Chills, No Night Sweats, No Fatigue, No Malaise ENT/Mouth : No Hearing loss, No Ear Pain, No Nasal Congestion, No Sinus Pain, No Hoarseness, No sore throat, No Rhinorrhea, No Swallowing Difficulty Eyes: No Eye Pain, No Swelling, No Redness, No Foreign Body, No Discharge, No Vision Changes Cardiovascular : No Chest Pain, No SOB, No Dyspnea on Exertion, No Orthopnea, No Edema, No Palpitations Respiratory : No Cough, No Sputum, No Wheezing, No Smoke Exposure, No Dyspnea Gastrointestinal : No Nausea, No Vomiting, No Diarrhea, No Constipation, No abdominal Pain, No Hematochezia, No Melena Genitourinary : no irregular bleeding, No Dysuria, No Urinary Frequency, No Hematuria, No Urinary Incontinence, No Urgency, No Flank Pain, No Urinary Flow Changes, No Hesitancy Musculoskeletal : No joint pain, No Myalgias, No Joint Swelling Skin : No Skin Lesions, No rash Neuro : No Weakness, No Numbness, No Paresthesias, complaining of multiple syncopal episodes, No Dizziness, No Headache Psych : Anxiety, depression, admits to substance abuse, denies alcohol Heme/Lymph: No Bruising, No Bleeding,No Lymphadenopathy Endocrine : No Polyuria, No Polydipsia, No Temperature Intolerance PMFSH Past Medical History Medical History ADHD Opioid use disorder, severe, on maintenance therapy Social History Social History Household Members: None Housing: Homeless Do you presently have visiting nurse or other home services: No Alcohol intake: current Alcohol intake frequency: 3 or more drinks per day Alcohol type: hard liquor Patient Tobacco Use Status: Current everyday Tobacco user Tobacco use type: Smokeless Tobacco Smoked in Last 30 Days: No e-Cigarette/Vaping Use: Currently Using Second Hand Smoke Exposure: No Use of substances other than those prescribed or required for medical reasons: No Substance Use Type: Amphetamines, Crack/Cocaine and Hallucinogens Advance Directives: No Advance Directives Information Provided: No service: No Current occupational status: unemployed Sexual orientation: Straight/Heterosexual Physical Exam 2 Vital Signs: Vital Signs: Last Vital Signs Temp 97.8 F 08/08/23 18:40 Pulse 88 08/08/23 18:57 Resp 16 08/08/23 18:57 BP 97/55 L 08/08/23 18:57 Pulse Ox 98 08/08/23 18:57 O2 Del Method Room Air 08/08/23 18:57 BMI result Body Mass Index 35.5 Const: Other: Appearance: Alert. Oriented X3. No acute distress. Eyes: Pupils equal, round and reactive to light. ENT: Pharynx normal. Neck: Normal inspection. Neck supple. No lymph nodes noted. No crepitus, no C- spine tenderness CVS: Normal heart rate and rhythm. Pulses normal. Normal S1 and S2 Respiratory: No respiratory distress. Breath sounds normal. No Wheezing. No rales Abdomen: Soft and nontender. No rigidity. No distention. Skin: Skin warm and dry. Normal skin color. Normal skin turgor. Extremities: No lower extremity edema. No Lacerations. No Rash Neuro: Oriented X 3. No motor deficit. No sensory deficit. Moving all extremities. No slurred speech. CN 2 through 12 grossly intact Psych: calm, cooperative, normal affect Medical Decision Making Medical Decision Making [facility] Narrative: -interpretation of head CT: No intracranial bleed. -patient has history of multiple syncopal episodes, positive dimer, CT scan for pulmonary embolism pending -my interpretation of EKG: Normal sinus rhythm, heart rate 77, no ST segment depression or elevation, no T-wave inversion, QTC 463 -potassium low, replaced p.o. -sign-out given to Dr. [place] Differential Diagnosis Differential Diagnoses: The differential diagnosis associated with the presentation includes (Alcohol intoxication, polysubstance abuse, pulmonary embolism) Admission/Observation Consideration of admission/observation: Escalation of care including admission/observation considered (Given the history of multiple syncopal episodes, admission has been considered.) Lab Data [facility] Lab Attestation statement: I reviewed the patient's lab results. 08/08/23 19:32 08/08/23 19:32 Labs: Lab Results 08/08/23 Range/Units 19:32 WBC 6.9 (4.8-10.8) X10*3/uL RBC 4.54 L (4.60-5.80) X10*6/uL Hgb 13.6 L (14.0-18.0) g/dl Hct 38.6 L (42.0-52.0) % MCV 85.0 (80.0-98.0) fL MCH 30.0 (27.0-33.0) pg MCHC 35.2 (31.0-36.0) g/dl RDW 13.1 (11.0-16.0) % Plt Count 122 L (160-400) X10*3/uL MPV 11.5 (9.4-12.4) fL Immature Gran % (Auto) 0.3 (0.0-0.4) % Neut % (Auto) 50.5 (45-73) % Lymph % (Auto) 34.4 (20-40) % Lamb % (Auto) 12.2 H (2-11) % Eos % (Auto) 2.2 (0-4) % Baso % (Auto) 0.4 (0-2) % Lymph # (Auto) 2.4 (1.2-4.9) X10*3/uL Lamb # (Auto) 0.8 (0.1-1.2) X10*3/uL Eos # (Auto) 0.2 (0.0-0.4) X10*3/uL Baso # (Auto) 0.0 (0.0-0.2) X10*3/uL Abs Immat Gran (auto) 0.02 (0.00-0.03) X10*3/uL Absolute Neuts (auto) 3.5 (2.0-8.3) x10*3/uL Absolute Nucleated RBC 0.000 (0.0-0.012) X10*3/uL Nucleated RBC % (auto) 0.0 (0.0-0.2) /100WBC PT 12.6 (11.1-13.3) SEC INR 1.0 (0.9-1.1) D-Dimer High Sensitivty 294 NG/ML Sodium 139 (135-145) mmol/L Potassium 2.9 L D (3.3-5.1) mmol/L Chloride 104 (96-108) mmol/L Carbon Dioxide 23 (22-29) mmol/L Anion Gap 15 (12-20) BUN 9 (9-16) mg/dL Creatinine 0.99 (0.5-1.4) mg/dL Estim Creat Clear Calc 108.6 Estimated GFR > 60 Random Glucose 87 (60-115) mg/dL Calcium 9.4 (8.4-10.2) mg/dL Magnesium 2.3 (1.6-2.6) mg/dL Total Bilirubin 0.9 (0.0-1.0) mg/dL Direct Bilirubin 0.4 (0.0-0.5) mg/dL AST 72 H (5-37) U/L ALT 48 H (0-40) U/L Alkaline Phosphatase 85 (39-117) U/L Troponin I High Sens < 2.7 (<3.5-35.0) ng/L Total Protein 7.7 (6.5-8.0) g/dL Albumin 4.4 (3.5-5.0) g/dL TSH 0.85 (0.32-4.0) uIU/mL Ethyl Alcohol < 10 mg/dL Independent Interpretation I performed an independent interpretation of an: CT Scan Radiology Impression Discussion of test interpretation with radiology: I have reviewed the radiologist's reading. Radiologist Impression: FINDINGS: There is a single viable intrauterine fetus in cephalic position. heart rate is 158 bpm. Amniotic fluid volume is subjectively normal. There is a posterior placenta with grade 0 changes. There is a 4.4 x 3.2 x 3.5 cm hypoechoic lesion adjacent to the posterior uterus, question representing a fibroid. The ovaries are normal appearing. There is no fluid in the maternal pelvis. US/US OB limited IMPRESSION: Single viable intrauterine fetus. Normal-appearing placenta. Probable centimeter uterine fibroid. Normal-appearing maternal ovaries. Critical Care Time Critical Care Time Critical Care Time: Yes Total Critical Care Time: 60 Attestation: I have personally provided critical care time. Time includes review of lab data, radiology results, discussion with consultants, and monitoring for potential decompensation. Intervention performed as documented. Discharge Plan Discharge Clinical Impression: Polysubstance abuse, Suicidal ideations, Syncopal episodes, Acute hypokalemia Patient Disposition: Still a Patient Prescriptions: No Action methadone 10 mg/5 mL Solution 170 mg PO DAILY Patient Comments: Dose confirmed by Marifer @ [phone] amoxicillin 250 mg Capsule 250 mg PO Q12H Qty: 14 0RF propranolol 20 mg Tablet 20 mg PO 0900,1500 Qty: 60 0RF Protocol: Hold for SBP/HR < HOLD for SBP < : 90 HOLD for HR < : 60 Anbesol (benzocaine) Max Str 20 % Gel 1 appl mucous membrane TID PRN (Reason: toothache) Qty: 9 0RF Protocol: Apply to: Apply to: teeth/gums escitalopram oxalate 20 mg Tablet 20 mg PO DAILY Qty: 30 0RF multivitamin [Daily-Haily] Tablet 1 tab PO DAILY Qty: 30 0RF thiamine mononitrate (vit B1) 100 mg Tablet 100 mg PO DAILY Qty: 30 0RF gabapentin 600 mg tablet 600 mg PO TID Qty: 90 0RF hydroxyzine HCl 50 mg tablet 50 mg PO TID Qty: 90 0RF dextroamphetamine-amphetamine [Adderall XR] 30 mg capsule,extended release 24hr 1 cap PO QAM Qty: 30 0RF bupropion HCl 300 mg tablet extended release 24 hr 300 mg PO DAILY Qty: 30 0RF quetiapine 50 mg tablet 100 mg PO BEDTIME Qty: 30 0RF naloxone [Narcan] 4 mg/actuation spray,non-aerosol 4 mg intranasal Q2M PRN (Reason: opioid overdose) Qty: 2 0RF Rx Instructions: spray 1 dose into ONE nostril; alternate nostrils w each dose until help arrives Interventions: [place]-Suicide Risk Severity Scale Last Done: 08/08/23 18:48
[2023-08-08 21:18] LABS: SLIDE REVIEW VERIFIED
[2023-08-08] MEDS: Potassium Chloride Packet 20 MEQ PACKET 80 MEQ PO (22:12)
[2023-08-09] VITALS (7 sets, daily range): BP systolic 114–165; BP diastolic 63–89; PULSE 53–78; RESP 12–18; TEMP 36.3–37.1; O2SAT 94–99; BMI 31.8
[2023-08-09 00:30] LABS: Appearance Urine Cloudy; Color Urine Dark Yellow; Glucose Urine UA Negative (Negative); Leukocyte Esterase Urine Trace (Negative); Nitrite Urine Negative (Negative); PH 5.5 (5.0-9.0); Specific Gravity - Urine >= 1.030 (1.005-1.025); UMIC TRIGGER UACC YES; Urine Blood Negative (Negative); Urine Ketones Negative (Negative); Urine Protein Trace mg/dL (Neg-Trace)
[2023-08-09 00:38] LABS: Amphetamine Screen Urine POSITIVE (Not Detect); Barbiturates, Urine Not Detected (Not Detect); Benzodiazepines Screen Urine Not Detected (Not Detect); Cannabinoid Screen Urine Not Detected (Not Detect); Cocaine Screen Urine POSITIVE (Not Detect); Fentanyl, urine POSITIVE (Not Detect); Opiate Screen Urine Not Detected (Not Detect); Phencyclidine Screen Urine Not Detected (Not Detect)
[2023-08-09 00:49] LABS: Bacteria Urine Trace (None Seen); RBC Urine 0-2 /HPF (0-2); WBC Urine 0-5 /HPF (0-5)
--- NOTE | 2023-08-09 03:25 | MHC.EDTECH ---
This tech assumed care of patient at 0300AM,,belonging list completed by previous tech. Hourly rounds and vitals completed and 1-1 sitter at bedside for safety
[2023-08-09 03:28] LABS: Anion Gap 14 (12-20); Carbon Dioxide 25 mmol/L (22-29); Chloride 104 mmol/L (96-108); Potassium 4.1 mmol/L (3.3-5.1); Sodium 139 mmol/L (135-145)
--- NOTE | 2023-08-09 06:06 | MHC.EDTECH ---
Hourly rounds and vitals completed,patient giving lindsay hoang and crackers. 1-1 sitter at bedside for safety
[2023-08-09 09:42] LABS: COVID-19 Test Negative (Negative); IDNOW Serial# BCCEAD1C
--- NOTE | 2023-08-09 11:00 | HE.PHANOTE ---
Addendum entered by Merary Walker RPh 08/09/23 11:03: LAST DOSE GIVEN 170 MG 08/03/23 Original Note: Methadone Maintenance Clinic Verification Clinic Name : [facility] last methadone dose : 170 mg
--- NOTE | 2023-08-09 11:07 | PHA.MEDREC ---
Pharmacy Consult ? Medication Reconciliation Pharmacy has completed the medication reconciliation. MED REC COMPLETE FROM CLAIM HISTORY AND VERIFIED BY PATIENT. HE KNEW THE NAMES OF MEDICATIONS AND WHEN ASKED ABOUT DOSES HE KNEW IF THEY WERE CORRECT WHEN COMPARED TO CLAIM HISTORY. USES [facility] FOR METHADONE. VERIFICATION ALREADY OBTAINED BY NURSING IN ED.
[2023-08-09] MEDS: methADONE HCl 20 MG/2 ML ORAL.CONC 40 MG PO ×2 (12:56→15:17)
[2023-08-09] MEDS: Thiamine HCL 100 MG TABLET PO (12:57)
[2023-08-09] MEDS: LORazepam 1 MG TABLET PO ×3 (12:57→20:47)
[2023-08-09] MEDS: Multivitamin TABLET 1 TAB PO (12:57)
--- NOTE | 2023-08-09 13:24 | PC.ADMIT ---
Nursing admission note: 42 year old male DX: Unspecified Depression. Unspecified opioid related disorder. Referred for admission by CARE team. Signed conditional voluntary for admission. Patient presented to [facility] secondary to community assessment by [facility]. Patient engages although irritable edge. Cooperative with admission process. A+O x4. Mood anxious, depressed. Reports suicidal ideation, I have been living outside and I can't keep doing it . Denies plan or intent at this time, states he can maintain safety on unit and will approach staff if feelings intensify. Patient dressed in hospital attire, skin check completed by RN MIGUELINA and ancillary JF. Good eye contact. Speech normal rate, tone, makenzie. Thoughts linear and organized. Denies perceptual disturbances, denies A/V hallucinations, no overt psychosis or expressed delusions. Denies sleep or appetite disturbances. Reports he has been drinking daily, 1-2 pints of fireball, last use prior to admission. Reports he has been taking 170mg of Methadone daily, take home, last received yesterday. Methadone verified by ED (see nursing note). TOX screen positive for Fentanyl, Amphetamine, Cocaine. Reports vaping, denies cigarette smoking, Declines NRT at this time. Refused flu shot. COVID negative. Medical history includes history of heart attack, history of seizure. Recent syncopal episodes, black out and fall. CT scan of head and C-Spine due to hitting head. Patient oriented to unit, placed on 15 minute safety checks. See nursing assessment, crisis eval for complete details.
--- NOTE | 2023-08-09 13:47 | P.HPPS_ITS ---
HPI Date of Service: 08/09/23 Chief Complaint: SI Polysubstance Abuse Pre Syncope Sources of Information: patient interviewed, chart reviewed and crisis/core team assessment reviewed HPI Subjective Notes: Conditional Voluntary Narrative: Patient is a 42 year old male with hx of MDD, ETOH abuse and polysubstance use who self presented to [facility] secondary to being assessed in the community by [facility] d/t suicidal ideation with increased depressive symptoms and recent medical concerns. Per crisis report, patient became homeless within the past two days d/t selling his gabapentin and methadone. He indicated that if he has to live outside for another day he will end his life. He reported he has been experiencing dizzy spells, confusion, memory loss and intermittent blackouts for the past 2 days. Was medically cleared in ER; per ER note, -interpretation of head CT: No intracranial bleed. -patient has history of multiple syncopal episodes, positive dimer, CT scan for pulmonary embolism pending -Normal sinus rhythm, heart rate 77, no ST segment depression or elevation, no T-wave inversion, QTC 463 -potassium low, replaced p.o. During admission assessment, patient presents guarded and irritable. Pt reports feeling depressed and suicidal because [facility] . Pt stated, it happened last week. I had 8 months clean then I got kicked out of my sober house because someone told on me that I was selling my gabapentin. I came back to the area because I knew some people and started drinking 2 sleeves of Fireball a day. I also used crack for day . Patient reports suicidal ideation with no plan. He states he doesn't know if I'm interested in sobriety again . Denies HI/VH/AH at this time. Past Psychiatric History: -IP: [place] 08/24/22; [facility] 11/29/21 Hx of IPLOC at [facility] in 2020 due to SI. Recent [facility] admit Reports hx of SA by cutting wrist. TSS: Oct 2021 LIZBETH Choudhary -Past meds: Vyvanse, Methadone, Wellbutrin, Clonidine, Gabapentin, Seroquel, Buspar, Lexapro, Propranolol, Atarax, Promethazine -Pharmacy- [facility] Medical Evaluation Reviewed: Yes [facility] Medical History ADHD Opioid use disorder, severe, on maintenance therapy Family History: Pt denies Social History: -Currently homeless Born and raised in [place], by his mother. Two sisters Recent move from [place], and has been homeless since coming to this area Hx of incarceration for 12 years Denies current legal issues/probation/parole single, unemployed, 1 daughter(17 y/o) Substance History: hx of ETOH, Cocaine, fentanyl, crack, heroin, methamphetamine, marijuana. Trauma History: -Per chart, hx of PTSD from incarceration. Diagnostics Vital Signs (24Hr): Vital Signs - 24 hr 08/08/23 18:40 08/08/23 18:51 08/08/23 18:54 Temperature 97.8 F Pulse Rate 76 70 79 Respiratory Rate 22 H 20 22 H Blood Pressure 143/77 H 151/69 H 92/63 Pulse Oximetry 99 100 97 Oxygen Delivery Method Room Air Room Air Room Air 08/08/23 18:57 08/08/23 21:53 08/08/23 21:54 Temperature Pulse Rate 88 68 72 Respiratory Rate 16 Blood Pressure 97/55 L 123/78 129/79 Pulse Oximetry 98 Oxygen Delivery Method Room Air 08/08/23 21:56 08/08/23 23:41 08/09/23 02:00 Temperature 97.8 F Pulse Rate 77 69 62 Respiratory Rate 18 16 Blood Pressure 128/74 103/79 114/65 Pulse Oximetry 100 95 Oxygen Delivery Method Room Air Room Air 08/09/23 03:38 08/09/23 06:01 08/09/23 08:05 Temperature 97.9 F 97.9 F Pulse Rate 65 61 53 Respiratory Rate 14 18 12 Blood Pressure 116/75 136/85 132/80 Pulse Oximetry 97 98 99 Oxygen Delivery Method Room Air Room Air Room Air 08/09/23 12:00 Temperature 98.8 F Pulse Rate 57 Respiratory Rate 18 Blood Pressure 165/89 H Pulse Oximetry 99 Oxygen Delivery Method Room Air BMI result Body Mass Index 31.8 Labs 08/08/23 19:32 08/09/23 03:14 Labs: Laboratory Results - last 48 hr 08/08/23 08/09/23 08/09/23 19:32 00:19 03:14 WBC 6.9 RBC 4.54 L Hgb 13.6 L Hct 38.6 L MCV 85.0 MCH 30.0 MCHC 35.2 RDW 13.1 Plt Count 122 L MPV 11.5 Immature Gran % (Auto) 0.3 Neut % (Auto) 50.5 Lymph % (Auto) 34.4 [place] % (Auto) 12.2 H Eos % (Auto) 2.2 Baso % (Auto) 0.4 Lymph # (Auto) 2.4 [place] # (Auto) 0.8 Eos # (Auto) 0.2 Baso # (Auto) 0.0 Abs Immat Gran (auto) 0.02 Absolute Neuts (auto) 3.5 Absolute Nucleated RBC 0.000 Nucleated RBC % (auto) 0.0 Smear Tech's Comments VERIFIED PT 12.6 INR 1.0 D-Dimer High Sensitivty 294 Sodium 139 139 Potassium 2.9 L D 4.1 D Chloride 104 104 Carbon Dioxide 23 25 Anion Gap 15 14 BUN 9 Creatinine 0.99 Estim Creat Clear Calc 108.6 Estimated GFR > 60 Random Glucose 87 Calcium 9.4 Magnesium 2.3 Total Bilirubin 0.9 Direct Bilirubin 0.4 AST 72 H ALT 48 H Alkaline Phosphatase 85 Troponin I High Sens < 2.7 Total Protein 7.7 Albumin 4.4 TSH 0.85 Urine Color Dark Yellow Urine Appearance Cloudy Urine pH 5.5 Ur Specific [place] >= 1.030 H Urine Protein Trace Urine Glucose (UA) Negative Urine Ketones Negative Urine Blood Negative Urine Nitrite Negative Ur Leukocyte Esterase Trace H Urine RBC 0-2 Urine WBC 0-5 Ur Squamous Epith Cells 3-5 Urine Bacteria Trace Hyaline Casts 6-10 Urine Opiates Screen Not Detected Urine Fentanyl Screen POSITIVE H Ur Barbiturates Screen Not Detected Ur Phencyclidine Scrn Not Detected Ur Amphetamines Screen POSITIVE H U Benzodiazepines Scrn Not Detected Urine Cocaine Screen POSITIVE H U Marijuana (THC) Screen Not Detected Ethyl Alcohol < 10 COVID-19 (HONG) COVID-19 Clin Com 08/09/23 09:23 WBC RBC Hgb Hct MCV MCH MCHC RDW Plt Count MPV Immature Gran % (Auto) Neut % (Auto) Lymph % (Auto) [place] % (Auto) Eos % (Auto) Baso % (Auto) Lymph # (Auto) [place] # (Auto) Eos # (Auto) Baso # (Auto) Abs Immat Gran (auto) Absolute Neuts (auto) Absolute Nucleated RBC Nucleated RBC % (auto) Smear Tech's Comments PT INR D-Dimer High Sensitivty Sodium Potassium Chloride Carbon Dioxide Anion Gap BUN Creatinine Estim Creat Clear Calc Estimated GFR Random Glucose Calcium Magnesium Total Bilirubin Direct Bilirubin AST ALT Alkaline Phosphatase Troponin I High Sens Total Protein Albumin TSH Urine Color Urine Appearance Urine pH Ur Specific [place] Urine Protein Urine Glucose (UA) Urine Ketones Urine Blood Urine Nitrite Ur Leukocyte Esterase Urine RBC Urine WBC Ur Squamous Epith Cells Urine Bacteria Hyaline Casts Urine Opiates Screen Urine Fentanyl Screen Ur Barbiturates Screen Ur Phencyclidine Scrn Ur Amphetamines Screen U Benzodiazepines Scrn Urine Cocaine Screen U Marijuana (THC) Screen Ethyl Alcohol COVID-19 (HONG) Negative COVID-19 Clin Com See Note Imaging Radiology Impressions: ITS Impressions Cervical Spine CT 08/08/23 19:51 IMPRESSION: Portions of the intracranial evaluation are degraded by beam hardening. Within this constraint, no definite acute intracranial hemorrhage. Nonspecific straightening of the normal cervical lordosis. No acute cervical spine fracture. Head CT 08/08/23 19:51 IMPRESSION: Portions of the intracranial evaluation are degraded by beam hardening. Within this constraint, no definite acute intracranial hemorrhage. Nonspecific straightening of the normal cervical lordosis. No acute cervical spine fracture. Meds/Allergies Meds Home Medications Medication Instructions Recorded Confirmed Type methadone 10 mg/5 mL oral solution 170 mg PO DAILY 02/12/23 08/09/23 History dextroamphetamine-amphetamine ER 1 cap PO DAILY 08/09/23 08/09/23 History 30 mg 24hr capsule,extend release (Adderall XR) quetiapine 50 mg tablet 50 mg PO BEDTIME 08/09/23 08/09/23 History Allergies Allergies Allergy/AdvReac Type Severity Reaction Status Date / Time capsaicin AdvReac Severe Burning Verified 02/11/23 09:45 sensation Mental Status Exam Mental Status Exam Narrative: Pt is alert and oriented; behavior is cooperative, calm; dressed in casual attire; mood is described as depressed ; eye contact appropriate; Speech is normal rate, volume and prosody and not pressured; no psychomotor agitation/retardation present; thought process is organized; Thought content is on tx; otherwise pertinent to relevant topics and without any delusional content, paranoid ideations or grandiosity; denies HI. Reports having suicidal ideation with no plan. There is no evidence of perceptual disturbance. Patients insight and judgment are poor. Assessment & Plan Assessment & Plan (1) MDD (major depressive disorder), recurrent episode, moderate: Status: Acute Code(s): F33.1 - Major depressive disorder, recurrent, moderate (2) ETOH abuse: Status: Acute Code(s): F10.10 - Alcohol abuse, uncomplicated (3) Opioid use disorder, severe, on maintenance therapy: Status: Acute Code(s): F11.20 - Opioid dependence, uncomplicated (4) Cocaine abuse: Status: Acute Code(s): F14.10 - Cocaine abuse, uncomplicated Plan Patient is a 42 year old male with hx of MDD, ETOH abuse and polysubstance use who self presented to [facility] ER secondary to being assessed in the community by [facility] d/t suicidal ideation with increased depressive symptoms and recent medical concerns. Plan: CV 15 minute safety checks CIWA Consult to addiction services Continue home medications Patient educated on: diagnosis, medication risk/benefits, substance abuse and therapeutic strategies Informed Consent: understands and further education needed Reason for continued inpatient stay Substantial Risk for: harm to self and med/psych decompensation Statement Statement: I have reviewed the history and physical and performed a pertinent examination on my patient. No changes have occurred unless specified. If the History and Physical was not performed prior to admission, the Hospitalist's service will be consulted for completing the admission physical. Time Spent With Patient Time: Total time managing care of this patient today _60___ minutes.
[2023-08-09] MEDS: Folic Acid 1 MG TABLET PO (14:39)
--- NOTE | 2023-08-09 15:27 | MHC.RECOVRN ---
Met with pt in [facility] after consult placed to Addiction Medicine for methadone dose. Pt admitted to after presenting to ED with SI. Pt laying in bed, asleep, wakes to voice, irritable, difficult to engage in conversation. Pt reports receiving 170 mg from [employer] in [place] on 08/03 and receiving 5 take home bottles. Pt reports he has been taking 170 mg daily. Spoke with CAIN Good, at [facility], pt had last methadone dose in person on 08/03 and received 5 take home bottles of 170 mg each. Meena Corrigan APRN, aware.
--- NOTE | 2023-08-09 20:31 | P.EN_ITS ---
Event Note Date of Service: 08/09/23 Event Note: Addiction consult placed for patient with OUD, engaged in treatment via [facility]--methadone dose verified to be 170mg daily. Last observed dose administered on 08/03 and patient was provided 5 take home bottles. During admission patient reported that he has not been taking methadone at home and has been selling his doses. Unclear how many doses he has missed and/or if he has been taking partial doses. He has been using heroin/fentanyl. ? what to restart methadone Plan: -methadone 80mg daily for now, with plan to titrate as appropriate -avoid administering methadone with other potentially sedating medications -monitor HR--currently in the 50's Time Spent With Patient Time: Total time managing care of this patient today ____ minutes.
[2023-08-09] MEDS: QUEtiapine Fumarate 50 MG TABLET PO (20:47)
[2023-08-09] MEDS: Gabapentin 300 MG CAPSULE PO (20:47)
[2023-08-10 04:20] VITALS: RESP 16
[2023-08-10] MEDS: Multivitamin TABLET 1 TAB PO (08:40)
[2023-08-10] MEDS: methADONE HCl 20 MG/2 ML ORAL.CONC 80 MG PO (08:40)
[2023-08-10] MEDS: Propranolol HCL 20 MG TABLET PO ×2 (08:40→14:16)
[2023-08-10] MEDS: LORazepam 1 MG TABLET 2 MG PO (08:40)
[2023-08-10] MEDS: Thiamine HCL 100 MG TABLET PO (08:40)
[2023-08-10] MEDS: Folic Acid 1 MG TABLET PO (08:40)
[2023-08-10] MEDS: buPROPion HCl XL 150 MG TAB.ER.24H PO (08:40)
[2023-08-10] MEDS: Escitalopram Oxalate 20 MG TABLET PO (08:40)
[2023-08-10] MEDS: Gabapentin 300 MG CAPSULE PO ×3 (08:40→21:04)
[2023-08-10 08:51] VITALS: BP 101/56; PULSE 65; RESP 20; TEMP 36.6; O2SAT 97
[2023-08-10 09:19] LABS: Alanine Aminotransferase 32 U/L (0-40); Albumin Level 3.9 g/dL (3.5-5.0); Alkaline Phosphatase 81 U/L (39-117); Anion Gap 14 (12-20); Aspartate Amino Transferase 29 U/L (5-37); Bilirubin Total 0.4 mg/dL (0.0-1.0); Blood Urea Nitrogen 6 mg/dL (9-16); Calcium 9.1 mg/dL (8.4-10.2); Carbon Dioxide 24 mmol/L (22-29); Chloride 107 mmol/L (96-108); Cholesterol 111 mg/dL (<200); Creatinine Clr Calc Pharmacy 141.4; Estimated Glomerular Filt Rate > 60; Glucose Fasting 114 mg/dL (60-99); HDL Cholesterol 41 mg/dL (>40); LDL Cholesterol Calculated 50 mg/dL (<100); Potassium 3.6 mmol/L (3.3-5.1); Sodium 141 mmol/L (135-145); Triglycerides 103 mg/dL (<150)
[2023-08-10 09:37] LABS: HBS Num1 21.51 mIU/mL (0-7.99); HBc Num1 0.12 S/CO (0.00-0.79); Hepatitis A Antibody IgM 0.51 Index (0-0.79); Hepatitis B Core Antibody Nonreactive (Nonreactive); Hepatitis B Surface Antigen Negative (Negative); ~HepC Num1 13.58 S/CO (0.00-0.79); ~Hepatitis A Antibody IgM Nonreactive (Nonreactive); ~Hepatitis B Surface Antibody REACTIVE (Nonreactive); ~Hepatitis C Antibody Reactive (Nonreactive)
[2023-08-10 09:59] LABS: Folate 8.7 ng/mL (> or = 4.0); Vitamin B12 436 pg/mL (200-900)
[2023-08-10 12:00] VITALS: BP 119/63; PULSE 66
[2023-08-10] MEDS: LORazepam 1 MG TABLET PO (14:16)
--- NOTE | 2023-08-10 15:25 | P.PNPSI_ITS ---
Subjective Subjective Date of Service: 08/10/23 Reason For Visit: SI Polysubstance Abuse Pre Syncope Interim History: seen with RACHEL lopez. calm, cooperative. a bit stand-offish. appears somewhat sedated. states his mood is shitty. reports he last took methadone 170 mg 2 days ago in the morning (10 a.m.) because he had take-home privileges. he is asking to be returned to his usual dose of methadone here (he received 80 mg yesterday). he believes he is in alcohol withdrawal, but when the fact that his initially reported period of homelessness/relapse has only been 2 days, he becomes defensive and asserts he meant a week and 2 days. he endorses SI; on being asked to relate his specific thoughts on the subject, he responds, the thoughts are blurry but i'm having them. asking to restart stimulants and also asking for ativan. Mental Status Exam Mental Status Exam Narrative: Pt is sedated and oriented; behavior is superficially cooperative, calm; dressed in casual attire; mood is described as shitty ; eye contact poor to hyper- intense; Speech is normal rate, volume and prosody and not pressured; no psychomotor agitation/retardation present; thought process is linear; Thought content is on tx with opioids, benzos, stimulants; otherwise pertinent to relevant topics and without any delusional content, paranoid ideations or grandiosity; denies HI/AVH. Reports having suicidal ideation with no plan. There is no evidence of perceptual disturbance. Patients insight and judgment are poor. Diagnostics Vital Signs (24Hr): Vital Signs - 24 hr 08/09/23 16:00 08/09/23 20:34 08/10/23 04:20 Temperature 97.4 F 98.0 F Pulse Rate 58 78 Respiratory Rate 18 18 16 Blood Pressure 118/74 135/63 Pulse Oximetry 94 99 Oxygen Delivery Method Room Air Room Air 08/10/23 08:51 08/10/23 12:00 Temperature 97.9 F Pulse Rate 65 66 Respiratory Rate 20 Blood Pressure 101/56 L 119/63 Pulse Oximetry 97 Oxygen Delivery Method Room Air BMI result Body Mass Index 31.8 Labs 08/08/23 19:32 08/10/23 08:38 Labs: Laboratory Results - last 48 hr 08/08/23 08/09/23 08/09/23 19:32 00:19 03:14 WBC 6.9 RBC 4.54 L Hgb 13.6 L Hct 38.6 L MCV 85.0 MCH 30.0 MCHC 35.2 RDW 13.1 Plt Count 122 L MPV 11.5 Immature Gran % (Auto) 0.3 Neut % (Auto) 50.5 Lymph % (Auto) 34.4 [place] % (Auto) 12.2 H Eos % (Auto) 2.2 Baso % (Auto) 0.4 Lymph # (Auto) 2.4 [place] # (Auto) 0.8 Eos # (Auto) 0.2 Baso # (Auto) 0.0 Abs Immat Gran (auto) 0.02 Absolute Neuts (auto) 3.5 Absolute Nucleated RBC 0.000 Nucleated RBC % (auto) 0.0 Smear Tech's Comments VERIFIED PT 12.6 INR 1.0 D-Dimer High Sensitivty 294 Sodium 139 139 Potassium 2.9 L D 4.1 D Chloride 104 104 Carbon Dioxide 23 25 Anion Gap 15 14 BUN 9 Creatinine 0.99 Estim Creat Clear Calc 108.6 Estimated GFR > 60 Random Glucose 87 Fasting Glucose Calcium 9.4 Magnesium 2.3 Total Bilirubin 0.9 Direct Bilirubin 0.4 AST 72 H ALT 48 H Alkaline Phosphatase 85 Troponin I High Sens < 2.7 Total Protein 7.7 Albumin 4.4 Triglycerides Cholesterol LDL Cholesterol, Calc HDL Cholesterol Vitamin B12 Folate TSH 0.85 Urine Color Dark Yellow Urine Appearance Cloudy Urine pH 5.5 Ur Specific [place] >= 1.030 H Urine Protein Trace Urine Glucose (UA) Negative Urine Ketones Negative Urine Blood Negative Urine Nitrite Negative Ur Leukocyte Esterase Trace H Urine RBC 0-2 Urine WBC 0-5 Ur Squamous Epith Cells 3-5 Urine Bacteria Trace Hyaline Casts 6-10 Urine Opiates Screen Not Detected Urine Fentanyl Screen POSITIVE H Ur Barbiturates Screen Not Detected Ur Phencyclidine Scrn Not Detected Ur Amphetamines Screen POSITIVE H U Benzodiazepines Scrn Not Detected Urine Cocaine Screen POSITIVE H U Marijuana (THC) Screen Not Detected Ethyl Alcohol < 10 COVID-19 ([facility]ONG) COVID-19 Clin Com Hepatitis A IgM Ab Hep Bs Antigen Hep Bs Antibody Hep B Core Total Ab Hepatitis C Ab (EIA) 08/09/23 08/10/23 09:23 08:38 WBC RBC Hgb Hct MCV MCH MCHC RDW Plt Count MPV Immature Gran % (Auto) Neut % (Auto) Lymph % (Auto) [place] % (Auto) Eos % (Auto) Baso % (Auto) Lymph # (Auto) [place] # (Auto) Eos # (Auto) Baso # (Auto) Abs Immat Gran (auto) Absolute Neuts (auto) Absolute Nucleated RBC Nucleated RBC % (auto) Smear Tech's Comments PT INR D-Dimer High Sensitivty Sodium 141 Potassium 3.6 Chloride 107 Carbon Dioxide 24 Anion Gap 14 BUN 6 L Creatinine 0.72 Estim Creat Clear Calc 141.4 Estimated GFR > 60 Random Glucose Fasting Glucose 114 H Calcium 9.1 Magnesium Total Bilirubin 0.4 Direct Bilirubin AST 29 ALT 32 Alkaline Phosphatase 81 Troponin I High Sens Total Protein 7.0 Albumin 3.9 Triglycerides 103 Cholesterol 111 LDL Cholesterol, Calc 50 HDL Cholesterol 41 Vitamin B12 436 Folate 8.7 TSH Urine Color Urine Appearance Urine pH Ur Specific [place] Urine Protein Urine Glucose (UA) Urine Ketones Urine Blood Urine Nitrite Ur Leukocyte Esterase Urine RBC Urine WBC Ur Squamous Epith Cells Urine Bacteria Hyaline Casts Urine Opiates Screen Urine Fentanyl Screen Ur Barbiturates Screen Ur Phencyclidine Scrn Ur Amphetamines Screen U Benzodiazepines Scrn Urine Cocaine Screen U Marijuana (THC) Screen Ethyl Alcohol COVID-19 (HONG) Negative COVID-19 Clin Com See Note Hepatitis A IgM Ab Nonreactive Hep Bs Antigen Negative Hep Bs Antibody REACTIVE Hep B Core Total Ab Nonreactive Hepatitis C Ab (EIA) Reactive H Imaging Radiology Impressions: ITS Impressions Cervical Spine CT 08/08/23 19:51 IMPRESSION: Portions of the intracranial evaluation are degraded by beam hardening. Within this constraint, no definite acute intracranial hemorrhage. Nonspecific straightening of the normal cervical lordosis. No acute cervical spine fracture. Head CT 08/08/23 19:51 IMPRESSION: Portions of the intracranial evaluation are degraded by beam hardening. Within this constraint, no definite acute intracranial hemorrhage. Nonspecific straightening of the normal cervical lordosis. No acute cervical spine fracture. Medications Medications Current Medications Al Hydroxide/Mg Hydroxide (Magnesium Hydrox/Alum Hydrox 30 Ml Oral.Susp) 30 ml PO Q6H PRN PRN Reason: Heartburn/Nausea Bupropion HCl (Bupropion Hcl Xl 150 Mg Tab.Er.24h) 150 mg PO DAILY [facility] Last Admin: 08/10/23 08:40 Dose: 150 mg Escitalopram Oxalate (Escitalopram Oxalate 20 Mg Tablet) 20 mg PO DAILY [facility] Last Admin: 08/10/23 08:40 Dose: 20 mg Folic Acid (Folic Acid 1 Mg Tablet) 1 mg PO DAILY [facility] Last Admin: 08/10/23 08:40 Dose: 1 mg Gabapentin (Gabapentin 300 Mg Capsule) 300 mg PO TID [facility] Last Admin: 08/10/23 14:16 Dose: 300 mg Hydroxyzine HCl (Hydroxyzine Hcl 25 Mg Tablet) 25 mg PO Q6H PRN PRN Reason: Anxiety Lorazepam (Lorazepam 1 Mg Tablet) 1 mg PO Q4H PRN PRN Reason: ciwa 8-11 Last Admin: 08/10/23 14:16 Dose: 1 mg Lorazepam (Lorazepam 1 Mg Tablet) 2 mg PO Q4H PRN PRN Reason: ciwa 12 or greater Last Admin: 08/10/23 08:40 Dose: 2 mg Magnesium Hydroxide (Milk Of Magnesia 30 Ml Oral.Susp) 30 ml PO DAILY PRN PRN Reason: Constipation Methadone HCl (Methadone Hcl 20 Mg/2 Ml Oral.Conc) 80 mg PO DAILY [facility] Last Admin: 08/10/23 08:40 Dose: 80 mg Multivitamins/Vitamin C (Multivitamin Tablet) 1 tab PO DAILY [facility] Last Admin: 08/10/23 08:40 Dose: 1 tab Nicotine (Nicotine 21 Mg Patch.Td24) 21 mg TRANSDERMA DAILY [facility] Last Admin: 08/10/23 13:41 Dose: Not Given Nicotine Polacrilex (Nicotine Polacrilex 2 Mg Gum) 2 mg BUCCAL Q1H PRN PRN Reason: Nicotine Cravings Propranolol HCl (Propranolol Hcl 20 Mg Tablet) 20 mg PO 0900,1500 [facility]; Protocol Last Admin: 08/10/23 14:16 Dose: 20 mg Quetiapine Fumarate (Quetiapine Fumarate 50 Mg Tablet) 50 mg PO BEDTIME PRN PRN Reason: Insomnia Last Admin: 08/09/23 20:47 Dose: 50 mg Thiamine HCl (Thiamine Hcl 100 Mg Tablet) 100 mg PO DAILY [facility] Last Admin: 08/10/23 08:40 Dose: 100 mg Allergies Allergies Allergy/AdvReac Type Severity Reaction Status Date / Time capsaicin AdvReac Severe Burning Verified 02/11/23 09:45 sensation Assessment & Plan Assessment & Plan (1) MDD (major depressive disorder), recurrent episode, moderate: Status: Acute Code(s): F33.1 - Major depressive disorder, recurrent, moderate (2) ETOH abuse: Status: Acute Code(s): F10.10 - Alcohol abuse, uncomplicated (3) Opioid use disorder, severe, on maintenance therapy: Status: Acute Code(s): F11.20 - Opioid dependence, uncomplicated (4) Cocaine abuse: Status: Acute Code(s): F14.10 - Cocaine abuse, uncomplicated Plan Patient is a 42 year old male with hx of MDD, ETOH abuse and polysubstance use who self presented [place] [facility] secondary to being assessed in the community by [facility] d/t suicidal ideation with increased depressive symptoms and recent medical concerns. 08/09: PAT. Consult to addiction services. Continue home medications. 08/10: pt only drinking for 2 days, does not need alcohol detox. DC PAT/shamika PRN. collaborate with addiction service to restore pt to appropriate methadone dosing. taper gabapentin, as pt was selling it at previous placement. do not start/re-start pt on stimulants as he has h/o misuse. do not prescribe benzodiazepines for the same reasons - likelihood of diversion and/or misuse. allow to stabilize on proper methadone dosing and reassess for plan. Reason for continued inpatient stay Substantial Risk for: inability to function Time Spent With Patient Time: Total time managing care of this patient today __35__ minutes.
[2023-08-10 16:20] VITALS: BP 129/63; PULSE 58
--- NOTE | 2023-08-10 20:03 | P.PNADD_ITS ---
Subjective Subjective Date of Service: 08/10/23 Reason For Visit: SI Polysubstance Abuse Pre Syncope Interim History: Patient seen in follow up to address methadone titration. Seen on M3, awake, alert, engaged in interview. Irritable affect, asking about gabapentin and adderrall. Dicussed current methadone dose, this advertising copywriter explained that reduction in dose was due to patient's report that he had been selling his methadone, and unclear how much he was actually taking, aside from last verified dose at [facility]. Patient reporting that he never said he sold his methadone, and has no idea where this report came from. Denies withdrawal sx. Mental Status Exam Mental Status Exam Patient Appearance: Appropriate Level of Consciousness: Awake and Alert Patient Behavior: Guarded Diagnostics Vital Signs (24Hr): Vital Signs - 24 hr 08/09/23 20:34 08/10/23 04:20 08/10/23 08:51 Temperature 98.0 F 97.9 F Pulse Rate 78 65 Respiratory Rate 18 16 20 Blood Pressure 135/63 101/56 L Pulse Oximetry 99 97 Oxygen Delivery Method Room Air Room Air 08/10/23 12:00 08/10/23 16:20 Temperature Pulse Rate 66 58 Respiratory Rate Blood Pressure 119/63 129/63 Pulse Oximetry Oxygen Delivery Method BMI result Body Mass Index 31.8 Labs 08/08/23 19:32 08/10/23 08:38 Labs: Laboratory Results - last 48 hr 08/08/23 08/09/23 08/09/23 19:32 00:19 03:14 Smear Tech's Comments VERIFIED Sodium 139 139 Potassium 2.9 L D 4.1 D Chloride 104 104 Carbon Dioxide 23 25 Anion Gap 15 14 BUN 9 Creatinine 0.99 Estim Creat Clear Calc 108.6 Estimated GFR > 60 Random Glucose 87 Fasting Glucose Calcium 9.4 Magnesium 2.3 Total Bilirubin 0.9 Direct Bilirubin 0.4 AST 72 H ALT 48 H Alkaline Phosphatase 85 Troponin I High Sens < 2.7 Total Protein 7.7 Albumin 4.4 Triglycerides Cholesterol LDL Cholesterol, Calc HDL Cholesterol Vitamin B12 Folate TSH 0.85 Urine Color Dark Yellow Urine Appearance Cloudy Urine pH 5.5 Ur Specific [place] >= 1.030 H Urine Protein Trace Urine Glucose (UA) Negative Urine Ketones Negative Urine Blood Negative Urine Nitrite Negative Ur Leukocyte Esterase Trace H Urine RBC 0-2 Urine WBC 0-5 Ur Squamous Epith Cells 3-5 Urine Bacteria Trace Hyaline Casts 6-10 Urine Opiates Screen Not Detected Urine Fentanyl Screen POSITIVE H Ur Barbiturates Screen Not Detected Ur Phencyclidine Scrn Not Detected Ur Amphetamines Screen POSITIVE H U Benzodiazepines Scrn Not Detected Urine Cocaine Screen POSITIVE H U Marijuana (THC) Screen Not Detected Ethyl Alcohol < 10 COVID-19 ([facility]) COVID-19 Clin Com Hepatitis A IgM Ab Hep Bs Antigen Hep Bs Antibody Hep B Core Total Ab Hepatitis C Ab (EIA) 08/09/23 08/10/23 09:23 08:38 Smear Tech's Comments Sodium 141 Potassium 3.6 Chloride 107 Carbon Dioxide 24 Anion Gap 14 BUN 6 L Creatinine 0.72 Estim Creat Clear Calc 141.4 Estimated GFR > 60 Random Glucose Fasting Glucose 114 H Calcium 9.1 Magnesium Total Bilirubin 0.4 Direct Bilirubin AST 29 ALT 32 Alkaline Phosphatase 81 Troponin I High Sens Total Protein 7.0 Albumin 3.9 Triglycerides 103 Cholesterol 111 LDL Cholesterol, Calc 50 HDL Cholesterol 41 Vitamin B12 436 Folate 8.7 TSH Urine Color Urine Appearance Urine pH Ur Specific [place] Urine Protein Urine Glucose (UA) Urine Ketones Urine Blood Urine Nitrite Ur Leukocyte Esterase Urine RBC Urine WBC Ur Squamous Epith Cells Urine Bacteria Hyaline Casts Urine Opiates Screen Urine Fentanyl Screen Ur Barbiturates Screen Ur Phencyclidine Scrn Ur Amphetamines Screen U Benzodiazepines Scrn Urine Cocaine Screen U Marijuana (THC) Screen Ethyl Alcohol COVID-19 ([facility]) Negative COVID-19 Clin Com See Note Hepatitis A IgM Ab Nonreactive Hep Bs Antigen Negative Hep Bs Antibody REACTIVE Hep B Core Total Ab Nonreactive Hepatitis C Ab (EIA) Reactive H Imaging Radiology Impressions: ITS Impressions Cervical Spine CT 08/08/23 19:51 IMPRESSION: Portions of the intracranial evaluation are degraded by beam hardening. Within this constraint, no definite acute intracranial hemorrhage. Nonspecific straightening of the normal cervical lordosis. No acute cervical spine fracture. Head CT 08/08/23 19:51 IMPRESSION: Portions of the intracranial evaluation are degraded by beam hardening. Within this constraint, no definite acute intracranial hemorrhage. Nonspecific straightening of the normal cervical lordosis. No acute cervical spine fracture. Medications Medications Current Medications Al Hydroxide/Mg Hydroxide (Magnesium Hydrox/Alum Hydrox 30 Ml Oral.Susp) 30 ml PO Q6H PRN PRN Reason: Heartburn/Nausea Bupropion HCl (Bupropion Hcl Xl 150 Mg Tab.Er.24h) 150 mg PO DAILY [facility] Last Admin: 08/10/23 08:40 Dose: 150 mg Escitalopram Oxalate (Escitalopram Oxalate 20 Mg Tablet) 20 mg PO DAILY [facility]S [facility]CLUDE 234 BEDS AT THE [facility] Last Admin: 08/10/23 08:40 Dose: 20 mg Folic Acid (Folic Acid 1 Mg Tablet) 1 mg PO DAILY COUNTS INCLUDE 234 BEDS AT THE [facility] Last Admin: 08/10/23 08:40 Dose: 1 mg Gabapentin (Gabapentin 300 Mg Capsule) 300 mg PO TID COUNTS INCLUDE 234 BEDS AT THE [facility] Last Admin: 08/10/23 14:16 Dose: 300 mg Hydroxyzine HCl (Hydroxyzine Hcl 25 Mg Tablet) 25 mg PO Q6H PRN PRN Reason: Anxiety Lorazepam (Lorazepam 1 Mg Tablet) 1 mg PO Q4H PRN PRN Reason: ciwa 8-11 Last Admin: 08/10/23 14:16 Dose: 1 mg Lorazepam (Lorazepam 1 Mg Tablet) 2 mg PO Q4H PRN PRN Reason: ciwa 12 or greater Last Admin: 08/10/23 08:40 Dose: 2 mg Magnesium Hydroxide (Milk Of Magnesia 30 Ml Oral.Susp) 30 ml PO DAILY PRN PRN Reason: Constipation Methadone HCl (Methadone Hcl 20 Mg/2 Ml Oral.Conc) 125 mg PO DAILY [facility]S INCLUDE 234 BEDS AT THE [facility] Multivitamins/Vitamin C (Multivitamin Tablet) 1 tab PO DAILY COUNTS INCLUDE 234 BEDS AT THE [facility] Last Admin: 08/10/23 08:40 Dose: 1 tab Nicotine (Nicotine 21 Mg Patch.Td24) 21 mg TRANSDERMA DAILY COUNTS INCLUDE 234 BEDS AT THE [facility] Last Admin: 08/10/23 13:41 Dose: Not Given Nicotine Polacrilex (Nicotine Polacrilex 2 Mg Gum) 2 mg BUCCAL Q1H PRN PRN Reason: Nicotine Cravings Propranolol HCl (Propranolol Hcl 20 Mg Tablet) 20 mg PO 0900,1500 COUNTS INCLUDE 234 BEDS AT THE [facility]; Protocol Last Admin: 08/10/23 14:16 Dose: 20 mg Quetiapine Fumarate (Quetiapine Fumarate 50 Mg Tablet) 50 mg PO BEDTIME PRN PRN Reason: Insomnia Last Admin: 08/09/23 20:47 Dose: 50 mg Thiamine HCl (Thiamine Hcl 100 Mg Tablet) 100 mg PO DAILY [facility]S INCLUDE 234 BEDS AT THE [facility] Last Admin: 08/10/23 08:40 Dose: 100 mg Allergies Allergies Allergy/AdvReac Type Severity Reaction Status Date / Time capsaicin AdvReac Severe Burning Verified 02/11/23 09:45 sensation Assessment & Plan Assessment & Plan (1) Opioid use disorder, severe, on maintenance therapy: Status: Acute Code(s): F11.20 - Opioid dependence, uncomplicated Assessment and Plan: * methadone dose increased to 125mg 08/11, 150 08/12,175 08/14 * monitor for sedation and hold dose increase if necessary * no additional follow up indicated at this time Total time managing care of this patient today __20__ minutes.
[2023-08-10 20:56] VITALS: BP 137/72; PULSE 54; RESP 18; TEMP 36.3; O2SAT 97
[2023-08-10] MEDS: QUEtiapine Fumarate 50 MG TABLET PO (21:04)
[2023-08-11] VITALS: RESP 16
[2023-08-11 04:00] VITALS: RESP 18
[2023-08-11 09:00] VITALS: BP 133/63; PULSE 79; RESP 20; TEMP 36.2; O2SAT 96
[2023-08-11] MEDS: buPROPion HCl XL 150 MG TAB.ER.24H PO (09:02)
[2023-08-11] MEDS: Multivitamin TABLET 1 TAB PO (09:02)
[2023-08-11] MEDS: Gabapentin 300 MG CAPSULE PO ×3 (09:02→21:03)
[2023-08-11] MEDS: Thiamine HCL 100 MG TABLET PO (09:02)
[2023-08-11] MEDS: Folic Acid 1 MG TABLET PO (09:02)
[2023-08-11] MEDS: Escitalopram Oxalate 20 MG TABLET PO (09:02)
[2023-08-11] MEDS: Propranolol HCL 20 MG TABLET PO ×2 (09:03→15:01)
[2023-08-11] MEDS: methADONE HCl 20 MG/2 ML ORAL.CONC 125 MG PO (09:06)
[2023-08-11] MEDS: LORazepam 1 MG TABLET PO (10:08)
--- NOTE | 2023-08-11 11:27 | HO.PSYCHPN ---
Subjective Subjective Date of Service: 08/11/23 Reason For Visit: SI Polysubstance Abuse Pre Syncope Interim History: Frustrated with service writer when discussed medications and treatment team clear direction on same i.e. no stimulants, benzos etc.. CIWA no longer in place. Sleep ok. No SI, psychosis evident. As per addiction medication eval 08/10/23: methadone dose increased to 125mg 08/11, 150 08/12,175 08/14 Medication Compliance: Yes Side effects from medications: No Attending Groups: Intermittent Review of Systems Acute medical concerns: No Review of Systems Review of Systems nothing acute Mental Status Exam Mental Status Exam Narrative: fairly presented. Irritable. Organized. No evidence of withdrawals. No SI, HI, psychosis. Insight and judgment fair. Diagnostics Vital Signs (24Hr): Vital Signs - 24 hr 08/10/23 12:00 08/10/23 16:20 08/10/23 20:56 Temperature 97.3 F Pulse Rate 66 58 54 Respiratory Rate 18 Blood Pressure 119/63 129/63 137/72 Pulse Oximetry 97 Oxygen Delivery Method Room Air 08/11/23 00:00 08/11/23 04:00 Temperature Pulse Rate Respiratory Rate 16 18 Blood Pressure Pulse Oximetry Oxygen Delivery Method BMI result Body Mass Index 31.8 Labs 08/08/23 19:32 08/10/23 08:38 Labs: Laboratory Results - last 48 hr 08/10/23 08:38 Sodium 141 Potassium 3.6 Chloride 107 Carbon Dioxide 24 Anion Gap 14 BUN 6 L Creatinine 0.72 Estim Creat Clear Calc 141.4 Estimated GFR > 60 Fasting Glucose 114 H Calcium 9.1 Total Bilirubin 0.4 AST 29 ALT 32 Alkaline Phosphatase 81 Total Protein 7.0 Albumin 3.9 Triglycerides 103 Cholesterol 111 LDL Cholesterol, Calc 50 HDL Cholesterol 41 Vitamin B12 436 Folate 8.7 Hepatitis A IgM Ab Nonreactive Hep Bs Antigen Negative Hep Bs Antibody REACTIVE Hep B Core Total Ab Nonreactive Hepatitis C Ab (EIA) Reactive H Imaging Radiology Impressions: ITS Impressions Cervical Spine CT 08/08/23 19:51 IMPRESSION: Portions of the intracranial evaluation are degraded by beam hardening. Within this constraint, no definite acute intracranial hemorrhage. Nonspecific straightening of the normal cervical lordosis. No acute cervical spine fracture. Head CT 08/08/23 19:51 IMPRESSION: Portions of the intracranial evaluation are degraded by beam hardening. Within this constraint, no definite acute intracranial hemorrhage. Nonspecific straightening of the normal cervical lordosis. No acute cervical spine fracture. Medications Medications Current Medications Al Hydroxide/Mg Hydroxide (Magnesium Hydrox/Alum Hydrox 30 Ml Oral.Susp) 30 ml PO Q6H PRN PRN Reason: Heartburn/Nausea Bupropion HCl (Bupropion Hcl Xl 150 Mg Tab.Er.24h) 150 mg PO DAILY [facility] Last Admin: 08/11/23 09:02 Dose: 150 mg Escitalopram Oxalate (Escitalopram Oxalate 20 Mg Tablet) 20 mg PO DAILY [facility] Last Admin: 08/11/23 09:02 Dose: 20 mg Folic Acid (Folic Acid 1 Mg Tablet) 1 mg PO DAILY [facility] Last Admin: 08/11/23 09:02 Dose: 1 mg Gabapentin (Gabapentin 300 Mg Capsule) 300 mg PO TID [facility] Last Admin: 08/11/23 09:02 Dose: 300 mg Hydroxyzine HCl (Hydroxyzine Hcl 25 Mg Tablet) 25 mg PO Q6H PRN PRN Reason: Anxiety Lorazepam (Lorazepam 1 Mg Tablet) 1 mg PO Q4H PRN PRN Reason: ciwa 8-11 Last Admin: 08/11/23 10:08 Dose: 1 mg Lorazepam (Lorazepam 1 Mg Tablet) 2 mg PO Q4H PRN PRN Reason: ciwa 12 or greater Last Admin: 08/10/23 08:40 Dose: 2 mg Magnesium Hydroxide (Milk Of Magnesia 30 Ml Oral.Susp) 30 ml PO DAILY PRN PRN Reason: Constipation Methadone HCl (Methadone Hcl 20 Mg/2 Ml Oral.Conc) 125 mg PO DAILY [facility] Last Admin: 08/11/23 09:06 Dose: 125 mg Multivitamins/Vitamin C (Multivitamin Tablet) 1 tab PO DAILY [facility] Last Admin: 08/11/23 09:02 Dose: 1 tab Nicotine (Nicotine 21 Mg Patch.Td24) 21 mg TRANSDERMA DAILY [facility] Last Admin: 08/11/23 09:28 Dose: Not Given Nicotine Polacrilex (Nicotine Polacrilex 2 Mg Gum) 2 mg BUCCAL Q1H PRN PRN Reason: Nicotine Cravings Propranolol HCl (Propranolol Hcl 20 Mg Tablet) 20 mg PO 0900,1500 [facility]; Protocol Last Admin: 08/11/23 09:03 Dose: 20 mg Quetiapine Fumarate (Quetiapine Fumarate 50 Mg Tablet) 50 mg PO BEDTIME PRN PRN Reason: Insomnia Last Admin: 08/10/23 21:04 Dose: 50 mg Thiamine HCl (Thiamine Hcl 100 Mg Tablet) 100 mg PO DAILY [facility] Last Admin: 08/11/23 09:02 Dose: 100 mg Allergies Allergies Allergy/AdvReac Type Severity Reaction Status Date / Time capsaicin AdvReac Severe Burning Verified 02/11/23 09:45 sensation Assessment & Plan Assessment & Plan (1) Opioid use disorder, severe, on maintenance therapy: Status: Acute Code(s): F11.20 - Opioid dependence, uncomplicated Assessment and Plan: methadone dose increased to 125mg 08/11, 150 08/12,175 08/14 monitor for sedation and hold dose increase if necessary no additional follow up indicated at this time (2) MDD (major depressive disorder), recurrent episode, moderate: Status: Acute Code(s): F33.1 - Major depressive disorder, recurrent, moderate (3) ETOH abuse: Status: Acute Code(s): F10.10 - Alcohol abuse, uncomplicated (4) Cocaine abuse: Status: Acute Code(s): F14.10 - Cocaine abuse, uncomplicated Plan Patient is a 42 year old male with hx of MDD, ETOH abuse and polysubstance use who self presented to [facility] secondary to being assessed in the community by [facility] d/t suicidal ideation with increased depressive symptoms and recent medical concerns. 08/09: CIWA. Consult to addiction services. Continue home medications. 08/10: pt only drinking for 2 days, does not need alcohol detox. DC CIWA/ativan PRN. collaborate with addiction service to restore pt to appropriate methadone dosing. taper gabapentin, as pt was selling it at previous placement. do not start/re-start pt on stimulants as he has h/o misuse. do not prescribe benzodiazepines for the same reasons - likelihood of diversion and/or misuse. allow to stabilize on proper methadone dosing and reassess for plan. 08/11: no changes. Methadone as per addiction medicine Reason for continued inpatient stay Substantial Risk for: inability to function Time Spent With Patient Time: Total time managing care of this patient today ____ minutes.
[2023-08-11 15:00] VITALS: BP 131/68; PULSE 60; RESP 20; TEMP 36.3; O2SAT 97
[2023-08-11] MEDS: Ibuprofen 600 MG TABLET PO (18:53)
[2023-08-11 20:00] VITALS: BP 162/89; PULSE 125; RESP 20; TEMP 36.6; O2SAT 98
[2023-08-11] MEDS: QUEtiapine Fumarate 50 MG TABLET PO (21:04)
[2023-08-11] MEDS: Benzocaine 20 % Oral Gel 9 GM TUBE 1 APPL MUCOUS MEM (21:04)
[2023-08-12] VITALS: RESP 16
[2023-08-12 04:00] VITALS: RESP 16
[2023-08-12 09:30] VITALS: BP 142/77; PULSE 60; RESP 20; TEMP 36.8; O2SAT 100
[2023-08-12] MEDS: Escitalopram Oxalate 20 MG TABLET PO (09:37)
[2023-08-12] MEDS: Multivitamin TABLET 1 TAB PO (09:37)
[2023-08-12] MEDS: Thiamine HCL 100 MG TABLET PO (09:37)
[2023-08-12] MEDS: Folic Acid 1 MG TABLET PO (09:37)
[2023-08-12] MEDS: Gabapentin 300 MG CAPSULE PO ×2 (09:37→16:12)
[2023-08-12] MEDS: Propranolol HCL 20 MG TABLET PO ×2 (09:38→16:12)
[2023-08-12] MEDS: buPROPion HCl XL 150 MG TAB.ER.24H PO (09:38)
[2023-08-12] MEDS: methADONE HCl 20 MG/2 ML ORAL.CONC 150 MG PO (09:39)
[2023-08-12] MEDS: Benzocaine 20 % Oral Gel 9 GM TUBE 1 APPL MUCOUS MEM (14:01)
--- NOTE | 2023-08-12 15:13 | HO.PSYCHPN ---
Subjective Subjective Date of Service: 08/12/23 Reason For Visit: SI Polysubstance Abuse Pre Syncope Interim History: Pleasant today. Asked about medication regimen and will clarify with his team tomorrow same. Sleep ok. No SI, psychosis evident. Feels supported. Attending groups Medication Compliance: Yes Side effects from medications: No Attending Groups: Yes Review of Systems Acute medical concerns: No Review of Systems Review of Systems nothing acute Mental Status Exam Mental Status Exam Narrative: fairly presented. Pleasant. Organized. No evidence of withdrawals. No SI, HI, psychosis. Insight and judgment fair. Diagnostics Vital Signs (24Hr): Vital Signs - 24 hr 08/11/23 20:00 08/12/23 00:00 08/12/23 04:00 Temperature 97.9 F Pulse Rate 125 H Respiratory Rate 20 16 16 Blood Pressure 162/89 H Pulse Oximetry 98 Oxygen Delivery Method Room Air BMI result Body Mass Index 31.8 Labs 08/08/23 19:32 08/10/23 08:38 Imaging Radiology Impressions: ITS Impressions Cervical Spine CT 08/08/23 19:51 IMPRESSION: Portions of the intracranial evaluation are degraded by beam hardening. Within this constraint, no definite acute intracranial hemorrhage. Nonspecific straightening of the normal cervical lordosis. No acute cervical spine fracture. Head CT 08/08/23 19:51 IMPRESSION: Portions of the intracranial evaluation are degraded by beam hardening. Within this constraint, no definite acute intracranial hemorrhage. Nonspecific straightening of the normal cervical lordosis. No acute cervical spine fracture. Medications Medications Current Medications Al Hydroxide/Mg Hydroxide (Magnesium Hydrox/Alum Hydrox 30 Ml Oral.Susp) 30 ml PO Q6H PRN PRN Reason: Heartburn/Nausea Benzocaine (Benzocaine 20 % Oral Gel 9 Gm Tube) 1 appl MUCOUS MEM TID PRN; Protocol PRN Reason: tooth pain Last Admin: 08/12/23 14:01 Dose: 1 appl Bupropion HCl (Bupropion Hcl Xl 150 Mg Tab.Er.24h) 150 mg PO DAILY [facility] Last Admin: 08/12/23 09:38 Dose: 150 mg Escitalopram Oxalate (Escitalopram Oxalate 20 Mg Tablet) 20 mg PO DAILY [facility] Last Admin: 08/12/23 09:37 Dose: 20 mg Folic Acid (Folic Acid 1 Mg Tablet) 1 mg PO DAILY [facility] Last Admin: 08/12/23 09:37 Dose: 1 mg Gabapentin (Gabapentin 300 Mg Capsule) 300 mg PO TID [facility] Last Admin: 08/12/23 09:37 Dose: 300 mg Hydroxyzine HCl (Hydroxyzine Hcl 25 Mg Tablet) 25 mg PO Q6H PRN PRN Reason: Anxiety Ibuprofen (Ibuprofen 600 Mg Tablet) 600 mg PO Q8H PRN PRN Reason: tooth pain Last Admin: 08/11/23 18:53 Dose: 600 mg Magnesium Hydroxide (Milk Of Magnesia 30 Ml Oral.Susp) 30 ml PO DAILY PRN PRN Reason: Constipation Methadone HCl (Methadone Hcl 20 Mg/2 Ml Oral.Conc) 150 mg PO DAILY [facility] Last Admin: 08/12/23 09:39 Dose: 150 mg Multivitamins/Vitamin C (Multivitamin Tablet) 1 tab PO DAILY [facility] Last Admin: 08/12/23 09:37 Dose: 1 tab Nicotine (Nicotine 21 Mg Patch.Td24) 21 mg TRANSDERMA DAILY [facility] Last Admin: 08/12/23 10:14 Dose: Not Given Nicotine Polacrilex (Nicotine Polacrilex 2 Mg Gum) 2 mg BUCCAL Q1H PRN PRN Reason: Nicotine Cravings Propranolol HCl (Propranolol Hcl 20 Mg Tablet) 20 mg PO 0900,1500 [facility]; Protocol Last Admin: 08/12/23 09:38 Dose: 20 mg Quetiapine Fumarate (Quetiapine Fumarate 50 Mg Tablet) 50 mg PO BEDTIME PRN PRN Reason: Insomnia Last Admin: 08/11/23 21:04 Dose: 50 mg Thiamine HCl (Thiamine Hcl 100 Mg Tablet) 100 mg PO DAILY [facility] Last Admin: 08/12/23 09:37 Dose: 100 mg Allergies Allergies Allergy/AdvReac Type Severity Reaction Status Date / Time capsaicin AdvReac Severe Burning Verified 02/11/23 09:45 sensation Assessment & Plan Assessment & Plan (1) Opioid use disorder, severe, on maintenance therapy: Status: Acute Code(s): F11.20 - Opioid dependence, uncomplicated Assessment and Plan: methadone dose increased to 125mg 08/11, 150 08/12,175 08/14 monitor for sedation and hold dose increase if necessary no additional follow up indicated at this time (2) MDD (major depressive disorder), recurrent episode, moderate: Status: Acute Code(s): F33.1 - Major depressive disorder, recurrent, moderate (3) ETOH abuse: Status: Acute Code(s): F10.10 - Alcohol abuse, uncomplicated (4) Cocaine abuse: Status: Acute Code(s): F14.10 - Cocaine abuse, uncomplicated Plan Patient is a 42 year old male with hx of MDD, ETOH abuse and polysubstance use who self presented [place] [facility] secondary to being assessed in the community by [facility] d/t suicidal ideation with increased depressive symptoms and recent medical concerns. 08/09: CIWA. Consult to addiction services. Continue home medications. 08/10: pt only drinking for 2 days, does not need alcohol detox. DC CIWA/ativan PRN. collaborate with addiction service to restore pt to appropriate methadone dosing. taper gabapentin, as pt was selling it at previous placement. do not start/re-start pt on stimulants as he has h/o misuse. do not prescribe benzodiazepines for the same reasons - likelihood of diversion and/or misuse. allow to stabilize on proper methadone dosing and reassess for plan. 08/11: no changes. Methadone as per addiction medicine 08/12: no changes Reason for continued inpatient stay Substantial Risk for: harm to self Time Spent With Patient Time: Total time managing care of this patient today ____ minutes.
[2023-08-12 16:09] VITALS: BP 123/66; PULSE 60; RESP 20; TEMP 36.1; O2SAT 97
[2023-08-12 20:00] VITALS: RESP 14
[2023-08-13] VITALS: RESP 14
[2023-08-13 08:46] VITALS: BP 137/79; PULSE 50; RESP 16; TEMP 36.6; O2SAT 95
[2023-08-13] MEDS: methADONE HCl 20 MG/2 ML ORAL.CONC 150 MG PO (09:16)
[2023-08-13] MEDS: Folic Acid 1 MG TABLET PO (09:18)
[2023-08-13] MEDS: Multivitamin TABLET 1 TAB PO (09:18)
[2023-08-13] MEDS: buPROPion HCl XL 150 MG TAB.ER.24H PO (09:18)
[2023-08-13] MEDS: Thiamine HCL 100 MG TABLET PO (09:19)
[2023-08-13] MEDS: Escitalopram Oxalate 20 MG TABLET PO (09:19)
[2023-08-13] MEDS: Gabapentin 300 MG CAPSULE PO (09:19)
[2023-08-13] MEDS: Benzocaine 20 % Oral Gel 9 GM TUBE 1 APPL MUCOUS MEM (13:57)
[2023-08-13] MEDS: Gabapentin 100 MG CAPSULE PO ×2 (14:33→20:24)
[2023-08-13] MEDS: hydrOXYzine HCL 25 MG TABLET PO (14:33)
--- NOTE | 2023-08-13 16:16 | P.PNPSI_ITS ---
Subjective Subjective Date of Service: 08/13/23 Reason For Visit: SI Polysubstance Abuse Pre Syncope Interim History: observed laughing loudly and joking with staff on the unit, projecting boisterous good cheer. with MD, irritable, long discussion had around his request to be on gabapentin and adderall. MD declines request and explains why. pt becomes verbally abusive and ultimately ends interview by standing up and exiting the room, saying, this is retarded. per staff, dep/anx 10. appropriate with staff. using humor. watching TV. denies SI/HI. beta alonzo being held for hypotension repeatedly, dosing decreased to 10 BID from 20 BID. Mental Status Exam Mental Status Exam Narrative: fairly presented. Irritable. Organized. No evidence of withdrawals. No SI, HI, psychosis. Insight and judgment fair. Diagnostics Vital Signs (24Hr): Vital Signs - 24 hr 08/12/23 20:00 08/13/23 00:00 08/13/23 08:46 Temperature 97.8 F Pulse Rate 50 Respiratory Rate 14 14 16 Blood Pressure 137/79 Pulse Oximetry 95 Oxygen Delivery Method Room Air BMI result Body Mass Index 31.8 Labs 08/08/23 19:32 08/10/23 08:38 Imaging Radiology Impressions: ITS Impressions Cervical Spine CT 08/08/23 19:51 IMPRESSION: Portions of the intracranial evaluation are degraded by beam hardening. Within this constraint, no definite acute intracranial hemorrhage. Nonspecific straightening of the normal cervical lordosis. No acute cervical spine fracture. Head CT 08/08/23 19:51 IMPRESSION: Portions of the intracranial evaluation are degraded by beam hardening. Within this constraint, no definite acute intracranial hemorrhage. Nonspecific straightening of the normal cervical lordosis. No acute cervical spine fracture. Medications Medications Current Medications Al Hydroxide/Mg Hydroxide (Magnesium Hydrox/Alum Hydrox 30 Ml Oral.Susp) 30 ml PO Q6H PRN PRN Reason: Heartburn/Nausea Benzocaine (Benzocaine 20 % Oral Gel 9 Gm Tube) 1 appl MUCOUS MEM TID PRN; Protocol PRN Reason: tooth pain Last Admin: 08/13/23 13:57 Dose: 1 appl Bupropion HCl (Bupropion Hcl Xl 300 Mg Tab.Er.24h) 300 mg PO DAILY [facility]NOR Escitalopram Oxalate (Escitalopram Oxalate 20 Mg Tablet) 20 mg PO DAILY CONNOR Last Admin: 08/13/23 09:19 Dose: 20 mg Folic Acid (Folic Acid 1 Mg Tablet) 1 mg PO DAILY [facility] Last Admin: 08/13/23 09:18 Dose: 1 mg Gabapentin (Gabapentin 100 Mg Capsule) 100 mg PO TID [facility] Last Admin: 08/13/23 14:33 Dose: 100 mg Hydroxyzine HCl (Hydroxyzine Hcl 25 Mg Tablet) 25 mg PO Q6H PRN PRN Reason: Anxiety Last Admin: 08/13/23 14:33 Dose: 25 mg Ibuprofen (Ibuprofen 600 Mg Tablet) 600 mg PO Q8H PRN PRN Reason: tooth pain Last Admin: 08/11/23 18:53 Dose: 600 mg Magnesium Hydroxide (Milk Of Magnesia 30 Ml Oral.Susp) 30 ml PO DAILY PRN PRN Reason: Constipation Methadone HCl (Methadone Hcl 20 Mg/2 Ml Oral.Conc) 170 mg PO DAILY [facility] Multivitamins/Vitamin C (Multivitamin Tablet) 1 tab PO DAILY [facility] Last Admin: 08/13/23 09:18 Dose: 1 tab Nicotine (Nicotine 21 Mg Patch.Td24) 21 mg TRANSDERMA DAILY [facility] Last Admin: 08/13/23 09:20 Dose: Not Given Nicotine Polacrilex (Nicotine Polacrilex 2 Mg Gum) 2 mg BUCCAL Q1H PRN PRN Reason: Nicotine Cravings Propranolol HCl (Propranolol Hcl 10 Mg Tablet) 10 mg PO 0900,1500 [facility]; Protocol Last Admin: 08/13/23 14:37 Dose: Not Given Quetiapine Fumarate (Quetiapine Fumarate 50 Mg Tablet) 50 mg PO BEDTIME [facility] Thiamine HCl (Thiamine Hcl 100 Mg Tablet) 100 mg PO DAILY [facility] Last Admin: 08/13/23 09:19 Dose: 100 mg Allergies Allergies Allergy/AdvReac Type Severity Reaction Status Date / Time capsaicin AdvReac Severe Burning Verified 02/11/23 09:45 sensation Assessment & Plan Assessment & Plan (1) Opioid use disorder, severe, on maintenance therapy: Status: Acute Code(s): F11.20 - Opioid dependence, uncomplicated Assessment and Plan: * methadone dose increased to 125mg 08/11, 150 08/12,175 08/14 * monitor for sedation and hold dose increase if necessary * no additional follow up indicated at this time (2) MDD (major depressive disorder), recurrent episode, moderate: Status: Acute Code(s): F33.1 - Major depressive disorder, recurrent, moderate (3) ETOH abuse: Status: Acute Code(s): F10.10 - Alcohol abuse, uncomplicated (4) Cocaine abuse: Status: Acute Code(s): F14.10 - Cocaine abuse, uncomplicated Plan Patient is a 42 year old male with hx of MDD, ETOH abuse and polysubstance use who [place] [facility] [place] secondary to being assessed in the community by [facility] d/t suicidal ideation with increased depressive symptoms and recent medical concerns. 08/09: CIWA. Consult to addiction services. Continue home medications. 08/10: pt only drinking for 2 days, does not need alcohol detox. DC CIWA/ativan PRN. collaborate with addiction service to restore pt to appropriate methadone dosing. taper gabapentin, as pt was selling it at previous placement. do not start/re-start pt on stimulants as he has h/o misuse. do not prescribe benzodiazepines for the same reasons - likelihood of diversion and/or misuse. allow to stabilize on proper methadone dosing and reassess for plan. 08/11: no changes. Methadone as per addiction medicine 08/12: no changes 08/13: taper gabapentin to 100 TID, DC at discharge. do not start stimulant. decrease propranolol from 20 BID to 10 BID due ton consistent bradycardia. use of beta alonzo in this patient is of dubious wisdom as he is a regular cocaine user and the combination may lead to unopposed alpha activity and potentially MN. T/C DC of beta alonzo entirely at discharge. Reason for continued inpatient stay Substantial Risk for: stable for discharge Time Spent With Patient Time: Total time managing care of this patient today __25__ minutes.
[2023-08-13 19:45] VITALS: BP 113/64; PULSE 50; RESP 16; TEMP 36; O2SAT 97
[2023-08-13] MEDS: QUEtiapine Fumarate 50 MG TABLET PO (20:25)
[2023-08-14 09:00] VITALS: BP 139/82; PULSE 60; RESP 18; TEMP 36.3; O2SAT 99
[2023-08-14] MEDS: Multivitamin TABLET 1 TAB PO (09:22)
[2023-08-14] MEDS: Thiamine HCL 100 MG TABLET PO (09:22)
[2023-08-14] MEDS: Propranolol HCL 10 MG TABLET PO (09:22)
[2023-08-14] MEDS: Gabapentin 100 MG CAPSULE PO (09:22)
[2023-08-14] MEDS: Folic Acid 1 MG TABLET PO (09:22)
[2023-08-14] MEDS: buPROPion HCl XL 300 MG TAB.ER.24H PO (09:22)
[2023-08-14] MEDS: Escitalopram Oxalate 20 MG TABLET PO (09:22)
[2023-08-14] MEDS: methADONE HCl 20 MG/2 ML ORAL.CONC 170 MG PO (09:24)
[2023-08-14] MEDS: Benzocaine 20 % Oral Gel 9 GM TUBE 1 APPL MUCOUS MEM (10:48)
--- NOTE | 2023-08-14 11:54 | PM.PSYDC ---
DS: Providers Provider Date of Service: 08/14/23 Date of admission: 08/09/23 10:59 Primary care physician: Unknown Physician Consults: 08/09/23 14:50 Addiction Medicine Routine Consulting Provider: Addiction Covering Reason for consultation: methodone dosage Has provider been notified: Yes DS: Diagnosis Discharge Diagnosis (1) Opioid use disorder, severe, on maintenance therapy: Status: Acute (2) MDD (major depressive disorder), recurrent episode, moderate: Status: Acute (3) ETOH abuse: Status: Acute (4) Cocaine abuse: Status: Acute DS: Medications Discharge Medications Home Medications: Home Medications Medication Instructions Recorded Confirmed methadone 10 mg/5 mL oral solution 170 mg PO DAILY 02/12/23 08/09/23 Previous Rx's Medication Instructions Recorded bupropion HCl 150 mg 24 hr tablet, 150 mg PO BID 30 days #60 tabs 08/14/23 extended release (Wellbutrin XL) escitalopram oxalate 20 mg tablet 20 mg PO DAILY 30 days #30 tabs 08/14/23 propranolol 10 mg tablet 10 mg PO 0900,1500 30 days #60 tabs 08/14/23 quetiapine 50 mg tablet 50 mg PO BEDTIME 30 days #30 tabs 08/14/23 Mental Status Exam Mental Status Exam Narrative: fairly presented. Pleasant. Organized. No evidence of withdrawals. No SI, HI, psychosis. Insight and judgment fair. Data Data Completed and Pending Completed studies during hospitalization [Text1]: 08/08/23 08/09/23 08/09/23 19:32 00:19 03:14 WBC 6.9 RBC 4.54 L Hgb 13.6 L Hct 38.6 L MCV 85.0 MCH 30.0 MCHC 35.2 RDW 13.1 Plt Count 122 L MPV 11.5 Immature Gran % (Auto) 0.3 Neut % (Auto) 50.5 Lymph % (Auto) 34.4 [place] % (Auto) 12.2 H Eos % (Auto) 2.2 Baso % (Auto) 0.4 Lymph # (Auto) 2.4 [place] # (Auto) 0.8 Eos # (Auto) 0.2 Baso # (Auto) 0.0 Abs Immat Gran (auto) 0.02 Absolute Neuts (auto) 3.5 Absolute Nucleated RBC 0.000 Nucleated RBC % (auto) 0.0 Smear Tech's Comments VERIFIED PT 12.6 INR 1.0 D-Dimer High Sensitivty 294 Sodium 139 139 Potassium 2.9 L D 4.1 D Chloride 104 104 Carbon Dioxide 23 25 Anion Gap 15 14 BUN 9 Creatinine 0.99 Estim Creat Clear Calc 108.6 Estimated GFR > 60 Random Glucose 87 Fasting Glucose Calcium 9.4 Magnesium 2.3 Total Bilirubin 0.9 Direct Bilirubin 0.4 AST 72 H ALT 48 H Alkaline Phosphatase 85 Troponin I High Sens < 2.7 Total Protein 7.7 Albumin 4.4 Triglycerides Cholesterol LDL Cholesterol, Calc HDL Cholesterol Vitamin B12 Folate TSH 0.85 Urine Color Dark Yellow Urine Appearance Cloudy Urine pH 5.5 Ur Specific [place] >= 1.030 H Urine Protein Trace Urine Glucose (UA) Negative Urine Ketones Negative Urine Blood Negative Urine Nitrite Negative Ur Leukocyte Esterase Trace H Urine RBC 0-2 Urine WBC 0-5 Ur Squamous Epith Cells 3-5 Urine Bacteria Trace Hyaline Casts 6-10 Urine Opiates Screen Not Detected Urine Fentanyl Screen POSITIVE H Ur Barbiturates Screen Not Detected Ur Phencyclidine Scrn Not Detected Ur Amphetamines Screen POSITIVE H U Benzodiazepines Scrn Not Detected Urine Cocaine Screen POSITIVE H U Marijuana (THC) Screen Not Detected Ethyl Alcohol < 10 COVID-19 (HONG) COVID-19 Clin Com Hepatitis A IgM Ab Hep Bs Antigen Hep Bs Antibody Hep B Core Total Ab Hepatitis C Ab (EIA) 08/09/23 08/10/23 09:23 08:38 WBC RBC Hgb Hct MCV MCH MCHC RDW Plt Count MPV Immature Gran % (Auto) Neut % (Auto) Lymph % (Auto) [place] % (Auto) Eos % (Auto) Baso % (Auto) Lymph # (Auto) [place] # (Auto) Eos # (Auto) Baso # (Auto) Abs Immat Gran (auto) Absolute Neuts (auto) Absolute Nucleated RBC Nucleated RBC % (auto) Smear Tech's Comments PT INR D-Dimer High Sensitivty Sodium 141 Potassium 3.6 Chloride 107 Carbon Dioxide 24 Anion Gap 14 BUN 6 L Creatinine 0.72 Estim Creat Clear Calc 141.4 Estimated GFR > 60 Random Glucose Fasting Glucose 114 H Calcium 9.1 Magnesium Total Bilirubin 0.4 Direct Bilirubin AST 29 ALT 32 Alkaline Phosphatase 81 Troponin I High Sens Total Protein 7.0 Albumin 3.9 Triglycerides 103 Cholesterol 111 LDL Cholesterol, Calc 50 HDL Cholesterol 41 Vitamin B12 436 Folate 8.7 TSH Urine Color Urine Appearance Urine pH Ur Specific [place] Urine Protein Urine Glucose (UA) Urine Ketones Urine Blood Urine Nitrite Ur Leukocyte Esterase Urine RBC Urine WBC Ur Squamous Epith Cells Urine Bacteria Hyaline Casts Urine Opiates Screen Urine Fentanyl Screen Ur Barbiturates Screen Ur Phencyclidine Scrn Ur Amphetamines Screen U Benzodiazepines Scrn Urine Cocaine Screen U Marijuana (THC) Screen Ethyl Alcohol COVID-19 (HONG) Negative COVID-19 Clin Com See Note Hepatitis A IgM Ab Nonreactive Hep Bs Antigen Negative Hep Bs Antibody REACTIVE Hep B Core Total Ab Nonreactive Hepatitis C Ab (EIA) Reactive H Imaging Diagnostic Imaging Impressions Cervical Spine CT 08/08/23 19:51 IMPRESSION: Portions of the intracranial evaluation are degraded by beam hardening. Within this constraint, no definite acute intracranial hemorrhage. Nonspecific straightening of the normal cervical lordosis. No acute cervical spine fracture. Head CT 08/08/23 19:51 IMPRESSION: Portions of the intracranial evaluation are degraded by beam hardening. Within this constraint, no definite acute intracranial hemorrhage. Nonspecific straightening of the normal cervical lordosis. No acute cervical spine fracture. DS: Summary Hospital Course Hospital Course: per 08/09 admission note: Patient is a 42 year old male with hx of MDD, ETOH abuse and polysubstance use who self [place] [facility] [place] secondary to being assessed in the community by [facility] d/t suicidal ideation with increased depressive symptoms and recent medical concerns. Per crisis report, patient became homeless within the past two days d/t selling his gabapentin and methadone. He indicated that if he has to live outside for another day he will end his life. He reported he has been experiencing dizzy spells, confusion, memory loss and intermittent blackouts for the past 2 days. Was medically cleared in ER; per ER note, -interpretation of head CT: No intracranial bleed. -patient has history of multiple syncopal episodes, positive dimer, CT scan for pulmonary embolism pending -Normal sinus rhythm, heart rate 77, no ST segment depression or elevation, no T-wave inversion, QTC 463 -potassium low, replaced p.o. During admission assessment, patient presents guarded and irritable. Pt reports feeling depressed and suicidal because my life is back to shit . Pt stated, it happened last week. I had 8 months clean then I got kicked out of my sober house because someone told on me that I was selling my gabapentin. I came back to the area because I knew some people and started drinking 2 sleeves of Fireball a day. I also used crack for day . Patient reports suicidal ideation with no plan. He states he doesn't know if I'm interested in sobriety again . Denies HI/VH/AH at this time. Past Psychiatric History: -[place]24/[place] [facility] [place] [place] Hx of [facility]OC at [facility] in [facility] due to SI. Recent [facility] admit Reports hx of SA by cutting wrist. TSS: Oct 2021 LIZBETH Choudhary -Past meds: Vyvanse, Methadone, Wellbutrin, Clonidine, Gabapentin, Seroquel, Buspar, Lexapro, Propranolol, Atarax, Promethazine -Pharmacy- [facility] Medical Evaluation Reviewed: Yes [facility] Medical History ADHD Opioid use disorder, severe, on maintenance therapy Family History: Pt denies Social History: -Currently homeless Born and raised in [place], by his mother. Two sisters Recent move from [place], and has been homeless since coming to this area Hx of incarceration for 12 years Denies current legal issues/probation/parole single, unemployed, 1 daughter(17 y/o) Substance History: hx of ETOH, Cocaine, fentanyl, crack, heroin, methamphetamine, marijuana. Trauma History: -Per chart, hx of PTSD from incarceration. Precis: Patient is a 42 year old male with hx of MDD, ETOH abuse and polysubstance use who self presented to [facility] [place] secondary to being assessed in the community by [facility] d/t suicidal ideation with increased depressive symptoms and recent medical concerns. 08/09: PAT. Consult to addiction services. Continue home medications. 08/10: pt only drinking for 2 days, does not need alcohol detox. SAILAJA STEWART/shamika ROBERTN. collaborate with addiction service to restore pt to appropriate methadone dosing. taper gabapentin, as pt was selling it at previous placement. do not start/re-start pt on stimulants as he has h/o misuse. do not prescribe benzodiazepines for the same reasons - likelihood of diversion and/or misuse. allow to stabilize on proper methadone dosing and reassess for plan. 08/11: no changes. Methadone as per addiction medicine 08/12: no changes 08/13: taper gabapentin to 100 TID, DC at discharge. do not start stimulant. decrease propranolol from 20 BID to 10 BID due ton consistent bradycardia. use of beta alonzo in this patient is of dubious wisdom as he is a regular cocaine user and the combination may lead to unopposed alpha activity and potentially RI. T/C DC of beta alonzo entirely at discharge. 08/14: stable, denies safety concerns. insists on remaining on propranolol despite MD's warning of RI with cocaine use. meds reviewed, reconciled, prescribed. discharged to intermediate. Time Spent with Patient Time attestation: Total time managing care of this patient today ____ minutes. Time spent: Greater than 30 minutes Discharge Plan Discharge Anticipated Discharge Date/Time: 08/14/23 11:39 Patient Disposition: Usp Discharge Diagnosis: PTSD, Chronic Depressive Disorder NOS Polysubstance Use Disorder Referrals: Therapy & Psychiatry [Other] - 1 Week (Please present to the clinic Sunday - from 10am to 12pm as a walk in to obtain outpatient mental health providers) Physician,Unknown J [Primary Care Provider] - 1 Week (You don't have a primary care provider listed on file. You can call [facility] at [phone] located at [address] [place] [address] in [place]. You can call and book a new patient appointment or walk-in as they accept new patient walk-ins. Please make sure you follow up with a primary care provider with 5-7 after being discharged. ) Discharge Medications: New propranolol 10 mg Tablet 10 mg PO 0900,1500 30 Days Qty: 60 0RF Protocol: Hold for SBP/HR < HOLD for SBP < : 90 HOLD for HR < : 60 escitalopram oxalate 20 mg Tablet 20 mg PO DAILY 30 Days Qty: 30 0RF bupropion HCl [Wellbutrin XL] 150 mg tablet extended release 24 hr 150 mg PO BID 30 Days Qty: 60 0RF Continued quetiapine 50 mg tablet 50 mg PO BEDTIME 30 Days Qty: 30 0RF methadone 10 mg/5 mL Solution 170 mg PO DAILY Patient Comments: Dose confirmed by [facility] 08/03/23 Discontinued dextroamphetamine-amphetamine [Adderall XR] 30 mg capsule,extended release 24hr 1 cap PO DAILY propranolol 20 mg Tablet 20 mg PO 0900,1500 Qty: 60 0RF Protocol: Hold for SBP/HR < HOLD for SBP < : 90 HOLD for HR < : 60 gabapentin 600 mg tablet 600 mg PO TID Qty: 90 0RF bupropion HCl 300 mg tablet extended release 24 hr 300 mg PO DAILY Qty: 30 0RF Discharge Orders: Discharge Order (Routine); Ordered 08/14/23 Ordered By: Christopher Isabel Diet: Advance to usual diet Activity on Discharge: As tolerated Stand Alone Forms: Patient Portal Discharge page, Community Support Care Plan Goals: remain safe, stable, and sober in the outpatient treatment setting Health Concerns: none Plan of Treatment: take medications as prescribed, attend appointments as scheduled Assessment: not at imminent risk of harm to self or others Discharge Date/Time: 08/14/23 12:30
== END 2023-08-14 12:30 | disposition home or self-care (01) | DRG 751 ==
LOC: HO.ED 21:13 → HO.PADLT16 08-09 11:05
PROVIDERS: Emergency Medicine; Admitting Provider Psychiatry & Neurology Psychiatry; Emergency Provider Internal Medicine; Visit Provider Psychiatry & Neurology Psychiatry
DX: F33.1 Major depressive disorder, recurrent, moderate (principal); R45.851 Suicidal ideations; F10.10 Alcohol abuse, uncomplicated; F11.20 Opioid dependence, uncomplicated; F19.90 Other psychoactive substance use, unspecified, uncomplicated; F90.9 Attention-deficit hyperactivity disorder, unspecified type; Z20.822 Contact with and (suspected) exposure to COVID-19; Z59.02 Unsheltered homelessness; Z87.891 Personal history of nicotine dependence; Z79.899 Other long term (current) drug therapy
CPT/HCPCS: 36415; 70450; 72125; 80048; 80051; 80053; 80061; 80076; 80307; 81001; 82607; 82746; 83735; 84443; 84484; 85025; 85379; 85610; 86704; 86706; 86709; 86803; 87340; 87635; 93005; 99285

== ENCOUNTER → 2023-08-09 10:59 | Outpatient (BNV) | payer OTHER, SELFPAY | PROVIDERS: Admitting Provider Psychiatry & Neurology Psychiatry; Emergency Provider Internal Medicine; Responsible Provider Registered Nurse; Visit Provider Nurse Practitioner Psychiatric/Mental Health | DX: F33.1 Major depressive disorder, recurrent, moderate (principal); F14.10 Cocaine abuse, uncomplicated; F11.20 Opioid dependence, uncomplicated; F10.10 Alcohol abuse, uncomplicated | CPT/HCPCS: 99231; 99232; 99499 ==

== ENCOUNTER → 2023-08-09 10:59 | Outpatient (BNV) | payer OTHER, SELFPAY | PROVIDERS: Admitting Provider Psychiatry & Neurology Psychiatry; Emergency Provider Internal Medicine; Responsible Provider Registered Nurse; Visit Provider Psychiatry & Neurology Psychiatry | DX: F33.1 Major depressive disorder, recurrent, moderate (principal); F10.10 Alcohol abuse, uncomplicated; F11.20 Opioid dependence, uncomplicated; F14.10 Cocaine abuse, uncomplicated | CPT/HCPCS: 90792 ==

== ENCOUNTER 2023-08-15 04:48 | Emergency (ER) | payer OTHER, SELFPAY ==
[2023-08-15 04:53] VITALS: BP 113/62; PULSE 86; RESP 18; TEMP 36.6; O2SAT 98; BMI 31.5
--- NOTE | 2023-08-15 05:21 | ED_ITS ---
HPI - Psych General Chief Complaint: Psychiatric Symptoms Stated Complaint: Suicidal Ideation Time Seen by Provider: 08/15/23 05:07 Source: patient Mode of arrival: ambulatory Limitations: no limitations History of Present Illness HPI Narrative: 42 yo male with PMH of substance abuse, ETOH abuse, MDD, just left upstairs yesterday but doesn't feel he is ready and now has SI. He plans to overdose on heroin. MD complaint: suicidal ideation and feels depressed Onset (ago): week(s) Duration: intermittent History of same: Yes Relieving factors: none Exacerbating factors: other Context: significant life stressor Associated psychiatric symptoms: depression and suicidal ideation Associated symptoms: denies other symptoms Treatments prior to arrival: none If self harm: admits thoughts of self harm and has plan Related Data Home Medications Medication Instructions Recorded Confirmed methadone 10 mg/5 mL oral solution 170 mg PO DAILY 02/12/23 08/09/23 Previous Rx's Medication Instructions Recorded bupropion HCl 150 mg 24 hr tablet, 150 mg PO BID 30 days #60 tabs 08/14/23 extended release (Wellbutrin XL) escitalopram oxalate 20 mg tablet 20 mg PO DAILY 30 days #30 tabs 08/14/23 propranolol 10 mg tablet 10 mg PO 0900,1500 30 days #60 tabs 08/14/23 quetiapine 50 mg tablet 50 mg PO BEDTIME 30 days #30 tabs 08/14/23 Allergies Allergy/AdvReac Type Severity Reaction Status Date / Time capsaicin AdvReac Severe Burning Verified 08/15/23 04:56 sensation Review of Systems Review of Systems: Constitutional : No Fever, No Chills ENT/Mouth : No Ear Pain, No Nasal Congestion, No sore throat Eyes: No Eye Pain, No Swelling, No Redness Cardiovascular : No Chest Pain, No SOB Respiratory : No Cough, No Sputum, No Dyspnea Gastrointestinal : No Nausea, No Vomiting, No Diarrhea, No Hematochezia, No Melena Genitourinary : No Dysuria, No Urinary Frequency, No Hematuria Musculoskeletal : No Myalgias Skin : No Skin Lesions, No rash Neuro : No Weakness, No Numbness, No Paresthesias, No Dizziness, No Headache Psych : positive Anxiety, positive Depression, positive SI no HI Heme/Lymph: No Lymphadenopathy Endocrine : No Polyuria, No Polydipsia All other systems reviewed and are negative [facility] Past Medical History Attestation statement: The following information was validated with the patient. Source: old records reviewed Medical History ADHD Opioid use disorder, severe, on maintenance therapy Social History Social History Household Members: None Housing: Homeless Do you presently have visiting nurse or other home services: No Alcohol intake: current Alcohol intake frequency: 3 or more drinks per day Alcohol type: hard liquor Patient Tobacco Use Status: Current everyday Tobacco user Tobacco use type: Smokeless Tobacco e-Cigarette/Vaping Use: Currently Using Second Hand Smoke Exposure: No Substance Use Type: Amphetamines, Crack/Cocaine, Former Substance User and Opiates service: No Current occupational status: unemployed Sexual orientation: Straight/Heterosexual Physical Exam Vital Signs: Vital Signs: Last Vital Signs Temp 98 F 08/15/23 04:53 Pulse 86 08/15/23 04:53 Resp 18 08/15/23 04:53 BP 113/62 08/15/23 04:53 Pulse Ox 98 08/15/23 04:53 O2 Del Method Room Air 08/15/23 04:53 BMI result Body Mass Index 31.5 Appearance: Alert. Oriented X3. No acute distress. Eyes: Pupils equal, round and reactive to light. ENT: Pharynx normal. Neck: Normal inspection. Neck supple. CVS: Normal heart rate and rhythm. Pulses normal. Respiratory: No respiratory distress. Breath sounds normal. Abdomen: Soft and non-tender. Skin: Skin warm and dry. Normal skin color. Normal skin turgor. Extremities: No lower extremity edema. Neuro: Oriented X 3. No motor deficit. No sensory deficit. CN 2-12 intact Course Course Course Narrative: Physician observation started at 608pm. Patient placed in physician observation because the patient needed more time for CARE team to assess the need for psych admission. At the time observation was started the patient's vitals were stable, patient is alert and oriented. , Neuro: nonfocal, CV RRR, Lungs clear Medical Decision Making Medical Decision Making MDM Narrative: 42 yo male with PMH of substance abuse, ETOH abuse, MDD here with c/o depression and SI at this just left inpatient and feels he is not ready and still has SI. will obtain labs and CARE team consult. Differential Diagnosis Differential Diagnoses: The differential diagnosis associated with the presentation includes depression, SI Admission/Observation Consideration of admission/observation: Escalation of care including admission/observation considered observe until CARE team sees patient Lab Data MDM Lab Attestation statement: I reviewed the patient's lab results. External Record Review External record reviewed: Inpatient record Discharge Plan Discharge Clinical Impression: Suicidal ideation Patient Disposition: Still a Patient Prescriptions: No Action propranolol 10 mg Tablet 10 mg PO 0900,1500 30 Days Qty: 60 0RF Protocol: Hold for SBP/HR < HOLD for SBP < : 90 HOLD for HR < : 60 escitalopram oxalate 20 mg Tablet 20 mg PO DAILY 30 Days Qty: 30 0RF quetiapine 50 mg tablet 50 mg PO BEDTIME 30 Days Qty: 30 0RF bupropion HCl [Wellbutrin XL] 150 mg tablet extended release 24 hr 150 mg PO BID 30 Days Qty: 60 0RF methadone 10 mg/5 mL Solution 170 mg PO DAILY Patient Comments: Dose confirmed by [facility] 08/03/23 Interventions: [place]-Suicide Risk Severity Scale Last Done: 08/15/23 05:20
[2023-08-15 05:52] LABS: Mean Corpuscular HGB Conc 33.9 g/dl (31.0-36.0); Mean Platelet Volume 11.6 fL (9.4-12.4); PLT CLUMP 1; Red Cell Distribution Width 13.3 % (11.0-16.0); SCAN SMEAR FLAG 1
[2023-08-15 05:54] LABS: Basophils Percent Auto 0.1 % (0-2); Eosinophils Absolute Auto 0.1 X10*3/uL (0.0-0.4); Eosinophils Percent Auto 1.9 % (0-4); Hematocrit 43.6 % (42.0-52.0); Hemoglobin 14.8 g/dl (14.0-18.0); Imm Gran Abs Auto 0.02 X10*3/uL (0.00-0.03); Imm Gran Pct Auto 0.3 % (0.0-0.4); Lymphocytes Absolute Auto 2.3 X10*3/uL (1.2-4.9); Lymphocytes Percent Auto 34.3 % (20-40); Mean Corpuscular Volume 88.3 fL (80.0-98.0); Monocytes Absolute Auto 0.6 X10*3/uL (0.1-1.2); Monocytes Percent Auto 9.3 % (2-11); Neutrophils Absolute Auto 3.7 x10*3/uL (2.0-8.3); Neutrophils Percent Auto 54.1 % (45-73); Red Blood Count 4.94 X10*6/uL (4.60-5.80)
[2023-08-15 05:55] LABS: MANUAL DIFF FLAG NO; Platelet Count 122 X10*3/uL (160-400); White Blood Count 6.8 X10*3/uL (4.8-10.8)
--- NOTE | 2023-08-15 06:08 | HE.PHANOTE ---
RE METHADONE PT GOT 170MG HERE YESTERDAY. WAS DISCHARGED FROM [facility], AND BACK HERE NOW. RETIMED DOSE SINCE DOSE YESTERDAY WAS @ 0900. JOHAN
[2023-08-15 06:12] LABS: Alanine Aminotransferase 28 U/L (0-40); Albumin Level 4.6 g/dL (3.5-5.0); Alkaline Phosphatase 78 U/L (39-117); Anion Gap 19 (12-20); Aspartate Amino Transferase 35 U/L (5-37); Bilirubin Total 0.4 mg/dL (0.0-1.0); Blood Urea Nitrogen 11 mg/dL (9-16); Calcium 9.6 mg/dL (8.4-10.2); Carbon Dioxide 18 mmol/L (22-29); Chloride 106 mmol/L (96-108); Creatinine Clr Calc Pharmacy 108.9; Estimated Glomerular Filt Rate > 60; Ethanol < 10 mg/dL; Glucose Random 109 mg/dL (60-115); Sodium 139 mmol/L (135-145); Total Protein 8.4 g/dL (6.5-8.0)
[2023-08-15 06:34] VITALS: BP 93/67; PULSE 78; RESP 16; TEMP 36.7; O2SAT 96
--- NOTE | 2023-08-15 06:43 | PC.NURSE ---
pt transferred to POD. ambulatory, gait steady
--- NOTE | 2023-08-15 07:19 | PC.NURSE ---
patient recently transferred from main ed appears to be attempting to sleep in room patient appears in no distress presently.
[2023-08-15 08:33] VITALS: BP 100/56; PULSE 62; RESP 18; TEMP 36.1; O2SAT 96
[2023-08-15] MEDS: Escitalopram Oxalate 20 MG TABLET PO (09:02)
[2023-08-15] MEDS: methADONE HCl 20 MG/2 ML ORAL.CONC 170 MG PO (09:03)
[2023-08-15 12:44] LABS: Amphetamine Screen Urine Not Detected (Not Detect); Barbiturates, Urine Not Detected (Not Detect); Benzodiazepines Screen Urine Not Detected (Not Detect); Cannabinoid Screen Urine Not Detected (Not Detect); Cocaine Screen Urine POSITIVE (Not Detect); Fentanyl, urine POSITIVE (Not Detect); Opiate Screen Urine Not Detected (Not Detect); Phencyclidine Screen Urine Not Detected (Not Detect)
[2023-08-15 12:57] LABS: Appearance Urine Clear; Color Urine Dark Yellow; Glucose Urine UA Negative (Negative); Leukocyte Esterase Urine Negative (Negative); Nitrite Urine Negative (Negative); Specific Gravity - Urine >= 1.030 (1.005-1.025); Urine Blood Negative (Negative); Urine Ketones Negative (Negative); Urine Protein Trace mg/dL (Neg-Trace)
[2023-08-15 12:59] LABS: Bacteria Urine None Seen (None Seen); RBC Urine 0-2 /HPF (0-2); Squamous Epithelial Cell Urine 0-2 /HPF (0-2); WBC Urine 0-5 /HPF (0-5)
== END 2023-08-15 15:09 | disposition home or self-care (01) ==
PROVIDERS: Emergency Medicine; Emergency Provider Emergency Medicine Emergency Medical Services
DX: R45.851 Suicidal ideations (principal); F33.1 Major depressive disorder, recurrent, moderate; F43.9 Reaction to severe stress, unspecified; Z79.899 Other long term (current) drug therapy; F17.210 Nicotine dependence, cigarettes, uncomplicated; Z71.6 Tobacco abuse counseling
CPT/HCPCS: 36415; 80053; 80307; 81001; 85025; 99285; S9485

== ENCOUNTER 2023-08-16 04:03 | Inpatient (IN) | payer OTHER, SELFPAY ==
[2023-08-16] VITALS (8 sets, daily range): BP systolic 91–137; BP diastolic 50–90; PULSE 60–88; RESP 14–18; TEMP 36.4–36.7; O2SAT 95–99; BMI 32.2
--- NOTE | 2023-08-16 | ECG_ITS ---
Test Reason : od Blood Pressure : / mmHG Vent. Rate : 065 BPM Atrial Rate : 065 BPM P-R Int : 148 ms QRS Dur : 102 ms QT Int : 424 ms P-R-T Axes : 062 009 046 degrees QTc Int : 440 ms Normal sinus rhythm Normal ECG When compared with ECG of 16-AUG-2023 07:52, Heart rate has decreased RSR' or QR pattern in V1 suggests right ventricular conduction delay is no longer Present Referred By: Ki Arora Electronically Signed By:NGOZI SALGUERO MD
--- NOTE | 2023-08-16 | ECG_ITS ---
Test Reason : OD Blood Pressure : / mmHG Vent. Rate : 060 BPM Atrial Rate : 060 BPM P-R Int : 152 ms QRS Dur : 098 ms QT Int : 440 ms P-R-T Axes : 054 -01 045 degrees QTc Int : 440 ms Normal sinus rhythm Normal ECG When compared with ECG of 16-AUG-2023 10:13, No significant change was found Referred By: Ki Arora Electronically Signed By:NGOZI SALGUERO MD
--- NOTE | ~2023-08-16 | XR_ITS ---
EXAMINATION: XR RIBS, RIGHT CLINICAL INFORMATION: Fall. Right rib pain. Shortness of breath COMPARISON: Frontal view of the chest 09/01/22 TECHNIQUE: Frontal view of the chest. 3 views right RIBS FINDINGS: Chest: Cardiac size is within normal limits. There is no mediastinal widening. There is no hilar mass, vascular congestion, or edema. There is hypoinflation. There is some pleural or extrapleural thickening of the periphery of the left lower chest similar to previous There is no pneumothorax. The diaphragm contour is smooth. There are surgical clips in the right upper quadrant. Right RIBS: Opaque marker indicates an area of clinical concern in the lower lateral right chest corresponding to the region of the lateral right 10th rib. There is no acute displaced rib fracture demonstrated. No focal lesion. There is some costal cartilage associated with the distal aspect of the right 11th rib does not appear to represent an acute process. No evidence of a right upper quadrant mass or collection. XR/XR ribs RT min 3V w CXR1V IMPRESSION: No acute displaced rib fracture or pneumothorax demonstrated
--- NOTE | 2023-08-16 04:25 | PC.NURSE ---
Addendum entered by Yuridia Boland RN 08/16/23 04:48: POD 8 Original Note: pt transferred from room 15 to 13. pt reported + SI, private branch exchange service advisor done by security. personal items was placed in the POD
--- NOTE | 2023-08-16 04:39 | ED.GENADULT ---
HPI - General Adult General Chief complaint: Overdose Stated complaint: dizziness/fall, right side weakness Time Seen by Provider: 08/16/23 04:37 Source: patient Mode of arrival: EMS Limitations: no limitations History of Present Illness HPI narrative: Patient 42 years old with history of MDD, ETOH abuse, polysubstance abuse using fentanyl and cocaine was admitted here 08/09 till 08/14 for suicidal ideation and increased depression comes back as patient was not feeling good and took handful of 50 mg Seroquel around noon time yesterday also took fentanyl and cocaine unknown amount patient been sleeping after arrival poor response to Narcan no vomiting Related Data Home Medications Medication Instructions Recorded Confirmed methadone 10 mg/5 mL oral solution 170 mg PO DAILY 02/12/23 08/15/23 escitalopram oxalate 20 mg tablet 20 mg PO DAILY 08/15/23 08/15/23 quetiapine 50 mg tablet 50 mg PO BEDTIME PRN Anxiety 08/15/23 08/15/23 Allergies Allergy/AdvReac Type Severity Reaction Status Date / Time capsaicin AdvReac Severe Burning Verified 08/15/23 04:56 sensation Review of Systems Review of Systems: Yes Unobtainable due to mental status PMFSH Past Medical History Medical History ADHD Opioid use disorder, severe, on maintenance therapy Social History Social History Household Members: None Housing: Homeless Do you presently have visiting nurse or other home services: No Alcohol intake: current Alcohol intake frequency: 3 or more drinks per day Alcohol type: hard liquor Patient Tobacco Use Status: Current everyday Tobacco user Tobacco use type: Smokeless Tobacco Smoked in Last 30 Days: Yes e-Cigarette/Vaping Use: Currently Using Second Hand Smoke Exposure: No Use of substances other than those prescribed or required for medical reasons: No Substance Use Type: Heroin and Prescription Drugs Substance Use Frequency: Chronic Longstanding Last Used Substance: Just Prior to Admission Any prior treatment program specific to substance use: No Advance Directives: No Advance Directives Information Provided: Yes service: No Current occupational status: unemployed Sexual orientation: Straight/Heterosexual Physical Exam ED Vital Signs: Vital Signs - 24 hr 08/16/23 04:14 08/16/23 05:28 Temperature 97.8 F 98.0 F Pulse Rate 83 88 Respiratory Rate 16 17 Blood Pressure 121/79 137/90 H Pulse Oximetry 96 98 Oxygen Delivery Method Room Air Room Air BMI result Body Mass Index 32.2 Appearance: Alert. Oriented 2-3. No acute distress. Sleepy but arousable saturating 96% on room air Eyes: PERRLA, No Nystagmus ENT: Pharynx normal. Oral Mucosa moist Neck: Normal inspection. Neck supple. CVS: Normal heart rate and rhythm. Pulses normal. Respiratory: No respiratory distress. Equal air entry bilateral, no wheezing/rales/rhonchi Abdomen: Soft and nontender. Bowel sounds are present, no mass palpable, no CVA tenderness Skin: Skin warm and dry. Normal skin color. Normal skin turgor. Extremities: No lower extremity edema. No calf tenderness superficial abrasion right knee psych: Refusing to answer why it took too sleepy but arousable Neuro: Oriented X2-3. No motor deficit. No sensory deficit.No cerebellar signs , cranial nerves II-XII intact Medications Administered Discontinued Medications Generic Name Dose Route Start Last Admin Trade Name Arianq PRN Reason Stop Dose Admin Naloxone HCl 4 mg 08/16/23 06:01 08/16/23 06:08 Naloxone Hcl Nasal 4 Mg Downey NOSTRILALT 08/16/23 06:02 4 mg ONCE ONE Administration Medical Decision Making Medical Decision Making [facility] Narrative: Patient's history of polysubstance abuse with overdose on Seroquel about 12 hours ago with stable vitals sleeping in the ER EKG without any QTC prolongation poison control was called with watch for observation Patient woke up become more anxious after Narcan Differential Diagnosis Differential Diagnoses: The differential diagnosis associated with the presentation includes Polysubstance abuse/major depression/suicidal ideation/paranoid Lab Data [facility] Lab Attestation statement: I reviewed the patient's lab results. 08/16/23 06:10 08/16/23 06:10 Labs: Lab Results 08/16/23 08/16/23 Range/Units 06:10 06:47 WBC 7.2 (4.8-10.8) X10*3/uL RBC 4.41 L (4.60-5.80) X10*6/uL Hgb 13.1 L (14.0-18.0) g/dl Hct 38.6 L (42.0-52.0) % MCV 87.5 (80.0-98.0) fL MCH 29.7 (27.0-33.0) pg MCHC 33.9 (31.0-36.0) g/dl RDW 13.2 (11.0-16.0) % Plt Count 98 L (160-400) X10*3/uL MPV 11.6 (9.4-12.4) fL Immature Gran % (Auto) 0.3 (0.0-0.4) % Neut % (Auto) 67.5 (45-73) % Lymph % (Auto) 19.8 L (20-40) % [place] % (Auto) 10.5 (2-11) % Eos % (Auto) 1.8 (0-4) % Baso % (Auto) 0.1 (0-2) % Lymph # (Auto) 1.4 (1.2-4.9) X10*3/uL [place] # (Auto) 0.8 (0.1-1.2) X10*3/uL Eos # (Auto) 0.1 (0.0-0.4) X10*3/uL Baso # (Auto) 0.0 (0.0-0.2) X10*3/uL Abs Immat Gran (auto) 0.02 (0.00-0.03) X10*3/uL Absolute Neuts (auto) 4.8 (2.0-8.3) x10*3/uL Absolute Nucleated RBC 0.000 (0.0-0.012) X10*3/uL Nucleated RBC % (auto) 0.0 (0.0-0.2) /100WBC Sodium 140 (135-145) mmol/L Potassium 3.9 (3.3-5.1) mmol/L Chloride 106 (96-108) mmol/L Carbon Dioxide 25 (22-29) mmol/L Anion Gap 13 (12-20) BUN 14 (9-16) mg/dL Creatinine 0.89 (0.5-1.4) mg/dL Estim Creat Clear Calc 115.0 Estimated GFR > 60 Random Glucose 101 (60-115) mg/dL Calcium 9.6 (8.4-10.2) mg/dL Magnesium 2.5 (1.6-2.6) mg/dL Total Bilirubin 0.4 (0.0-1.0) mg/dL AST 38 H (5-37) U/L ALT 26 (0-40) U/L Alkaline Phosphatase 72 (39-117) U/L Total Protein 7.7 (6.5-8.0) g/dL Albumin 4.2 (3.5-5.0) g/dL Salicylates < 5.0 L (15-30) mg/dL Urine Opiates Screen Not Detected (Not Detect) Urine Fentanyl Screen POSITIVE H (Not Detect) Acetaminophen < 17 (<30) mcg/mL Ur Barbiturates Screen Not Detected (Not Detect) Ur Phencyclidine Scrn Not Detected (Not Detect) Ur Amphetamines Screen Not Detected (Not Detect) U Benzodiazepines Scrn Not Detected (Not Detect) Urine Cocaine Screen POSITIVE H (Not Detect) U Marijuana (THC) Screen Not Detected (Not Detect) Ethyl Alcohol < 10 mg/dL Independent Interpretation I performed an independent interpretation of an: EKG Interpretation: Normal sinus rhythm heart rate 77 beats per minute QTC [address]-T changes no acute ischemia Discharge Plan Discharge Clinical Impression: Polysubstance (including opioids) dependence, daily use, MDD (major depressive disorder), recurrent episode, moderate, Drug overdose Patient Disposition: Still a Patient Prescriptions: No Action escitalopram oxalate 20 mg tablet 20 mg PO DAILY quetiapine 50 mg tablet 50 mg PO BEDTIME PRN (Reason: Anxiety) methadone 10 mg/5 mL Solution 170 mg PO DAILY Patient Comments: Dose confirmed by [facility] 08/03/23
--- NOTE | 2023-08-16 05:27 | PC.NURSE ---
called Poison control
--- NOTE | 2023-08-16 05:29 | ECG_ITS ---
Test Reason : OD Blood Pressure : / mmHG Vent. Rate : 077 BPM Atrial Rate : 077 BPM P-R Int : 142 ms QRS Dur : 098 ms QT Int : 386 ms P-R-T Axes : 063 -06 052 degrees QTc Int : 436 ms Normal sinus rhythm RSR' or QR pattern in V1 suggests right ventricular conduction delay Nonspecific T wave abnormality Anterior leads Abnormal ECG When compared with ECG of 08-AUG-2023 19:19, Nonspecific T wave abnormality no longer evident in Inferior leads T wave inversion no longer evident in Anterior leads Referred By: Ja Dallas Electronically Signed By:NGOZI SALGUERO MD
--- NOTE | 2023-08-16 05:58 | PC.NURSE ---
unable to establish a IV. Dr. Dallas aware
[2023-08-16] MEDS: Naloxone HCl Nasal 4 MG SPRAY NOSTRILALT (06:08)
--- NOTE | 2023-08-16 06:10 | PC.NURSE ---
Addendum entered by Yuridia Boland RN 08/16/23 06:58: pt awake, restless, follow instructions Addendum entered by Yuridia Boland RN 08/16/23 06:25: Dr. Dallas aware Original Note: pt lethargic, medicated with narcan with no effect
[2023-08-16 06:19] LABS: MANUAL DIFF FLAG NO
[2023-08-16 06:37] LABS: Basophils Percent Auto 0.1 % (0-2); Eosinophils Absolute Auto 0.1 X10*3/uL (0.0-0.4); Eosinophils Percent Auto 1.8 % (0-4); Hematocrit 38.6 % (42.0-52.0); Hemoglobin 13.1 g/dl (14.0-18.0); Imm Gran Abs Auto 0.02 X10*3/uL (0.00-0.03); Imm Gran Pct Auto 0.3 % (0.0-0.4); Lymphocytes Absolute Auto 1.4 X10*3/uL (1.2-4.9); Lymphocytes Percent Auto 19.8 % (20-40); Mean Corpuscular HGB Conc 33.9 g/dl (31.0-36.0); Mean Corpuscular Hemoglobin 29.7 pg (27.0-33.0); Mean Corpuscular Volume 87.5 fL (80.0-98.0); Mean Platelet Volume 11.6 fL (9.4-12.4); Monocytes Absolute Auto 0.8 X10*3/uL (0.1-1.2); Monocytes Percent Auto 10.5 % (2-11); Neutrophils Absolute Auto 4.8 x10*3/uL (2.0-8.3); Neutrophils Percent Auto 67.5 % (45-73); Red Blood Count 4.41 X10*6/uL (4.60-5.80); Red Cell Distribution Width 13.2 % (11.0-16.0); White Blood Count 7.2 X10*3/uL (4.8-10.8)
[2023-08-16 06:39] LABS: Alanine Aminotransferase 26 U/L (0-40); Albumin Level 4.2 g/dL (3.5-5.0); Alkaline Phosphatase 72 U/L (39-117); Anion Gap 13 (12-20); Aspartate Amino Transferase 38 U/L (5-37); Bilirubin Total 0.4 mg/dL (0.0-1.0); Blood Urea Nitrogen 14 mg/dL (9-16); Calcium 9.6 mg/dL (8.4-10.2); Carbon Dioxide 25 mmol/L (22-29); Chloride 106 mmol/L (96-108); Estimated Glomerular Filt Rate > 60; Glucose Random 101 mg/dL (60-115); Magnesium 2.5 mg/dL (1.6-2.6); Potassium 3.9 mmol/L (3.3-5.1); Sodium 140 mmol/L (135-145); Total Protein 7.7 g/dL (6.5-8.0)
[2023-08-16 06:43] LABS: Acetaminophen LAB < 17 mcg/mL (<30); Ethanol < 10 mg/dL; Salicylate < 5.0 mg/dL (15-30)
[2023-08-16 06:52] LABS: Platelet Count 98 X10*3/uL (160-400)
[2023-08-16 07:00] LABS: Appearance Urine Clear; Color Urine Dark Yellow; Glucose Urine UA Negative (Negative); Leukocyte Esterase Urine Negative (Negative); Nitrite Urine Negative (Negative); PH 6.5 (5.0-9.0); Specific Gravity - Urine >= 1.030 (1.005-1.025); Urine Blood Negative (Negative); Urine Ketones Negative (Negative); Urine Protein Trace mg/dL (Neg-Trace)
[2023-08-16 07:01] LABS: Amphetamine Screen Urine Not Detected (Not Detect); Barbiturates, Urine Not Detected (Not Detect); Benzodiazepines Screen Urine Not Detected (Not Detect); Cannabinoid Screen Urine Not Detected (Not Detect); Cocaine Screen Urine POSITIVE (Not Detect); Fentanyl, urine POSITIVE (Not Detect); Opiate Screen Urine Not Detected (Not Detect); Phencyclidine Screen Urine Not Detected (Not Detect)
[2023-08-16 07:08] LABS: COVID-19 Test Negative (Negative); IDNOW Serial# BCCEAD1C
--- NOTE | 2023-08-16 07:26 | PC.NURSE ---
pt up to BR, security present. pt requiring 1x assist to BR d/t unsteady gaite. pt changed into kaci, reports he took a shit ton of seroquel 50mg. reports approx taking 20 pills. denies taking anything else with these meds. pts tox screen + . pt awaiting medical clearance before meeting with the CARE team. pt reporting 8/10 abd pain.
--- NOTE | 2023-08-16 07:44 | ECG_ITS ---
Test Reason : overdose Blood Pressure : / mmHG Vent. Rate : 091 BPM Atrial Rate : 091 BPM P-R Int : 142 ms QRS Dur : 102 ms QT Int : 368 ms P-R-T Axes : 060 -03 062 degrees QTc Int : 452 ms Normal sinus rhythm RSR' or QR pattern in V1 suggests right ventricular conduction delay Borderline ECG When compared with ECG of 16-AUG-2023 05:55, No significant change was found Referred By: Ki Arora Electronically Signed By:NGOZI SALGUERO MD
--- NOTE | 2023-08-16 07:44 | PC.NURSE ---
pt COWS 15. MD Arora made aware. decision made to hold PO ativan at this time, give methadone. pt on 170 mg Methadone, most recently dosed here on M3. call placed to pharmacy to determine dose need at this time given pts overdose status on a questionable amount of seroquel.
--- NOTE | 2023-08-16 07:55 | PC.NURSE ---
repeat EKG obtained, QTC within range, ok to give methadone at this time
--- NOTE | 2023-08-16 09:08 | PC.NURSE ---
lat entry 0750 - attempted to medicate pt with P Methadone, dose cut to 60mg from normal 170mg. pt lethargic. not able to focus or track this service writer while speaking, not responding to physical or verbal stimuli. informed MD of pts change in position, decision made to hold methadone at this time at give at a later time when pt more awake/arousable.
--- NOTE | 2023-08-16 10:06 | PC.NURSE ---
Addendum entered by Ave Zabala RN 08/16/23 10:08: monitor pt for up to 8 hrs before poison control makes definitive decision Original Note: spoke with POison control for update. continue to monitor QTC - monitor with ekg. Q2 hr x4 total
[2023-08-16] MEDS: methADONE HCl 20 MG/2 ML ORAL.CONC 60 MG PO (15:19)
--- NOTE | 2023-08-16 15:22 | PC.NURSE ---
pt awake, medically cleared at this time by MD Arora plan to send to the POD
[2023-08-16] MEDS: Acetaminophen 325 MG TABLET 650 MG PO (16:48)
--- NOTE | 2023-08-16 18:25 | PC.NURSE ---
Tylenol given at 1648 for tooth pain with moderate effect. Norbert is advocating for an inpatient admission and verbalizes he will not be safe if discharged. Appetite is good. No behavioral concerns. Norbert is an inpatient bed search.
[2023-08-16] MEDS: Benzocaine 20 % Oral Gel 9 GM TUBE 1 APPL MUCOUS MEM (21:38)
--- NOTE | 2023-08-17 04:19 | PC.NURSE ---
Patient slept through the night no distress observed/reported, disposition is voluntary inpatient bed search, med rec completed/pending provider's approval, VSS, behavior non concerning, labs completed/resulted/reviewed, belonging list was done in main ED, will continue to monitor.
--- NOTE | 2023-08-17 07:00 | PC.NURSE ---
patient appears to remain asleep at present respirations are even and unlabored patient appears in no distress
--- NOTE | 2023-08-17 07:16 | HE.PHANOTE ---
RE METHADONE PT GOT 170MG HERE ON 08/14 AND 08/15. WAS DISCHARGED FROM , AND BACK HERE NOW. ON 08/15 PT LEFT, CAME BACK 08/16. DR BERGER REDUCED DOSE AND NOW BEING TITRATED TO FULL DOSE JOHAN
[2023-08-17] MEDS: methADONE HCl 20 MG/2 ML ORAL.CONC 170 MG PO (08:19)
--- NOTE | 2023-08-17 09:25 | PHA.MEDREC ---
Pharmacy Consult ? Medication Reconciliation RN has completed the medication reconciliation, pharmacy reviewed.
[2023-08-17] MEDS: Benzocaine 20 % Oral Gel 9 GM TUBE 1 APPL MUCOUS MEM (15:14)
[2023-08-17 17:10] VITALS: BMI 32.3
[2023-08-17 17:15] VITALS: BP 139/84; PULSE 60; RESP 16; TEMP 36.2; O2SAT 97
--- NOTE | 2023-08-17 18:15 | PC.ADMIT ---
This 42 y.o male was last discharged from this [facility] on 08/14/23. Referred by [facility] team with dx of Major Depressive disorder, recurrent moderate, Opioid dependence, uncomplicated, Alcohol abuse, uncomplicated, Cocaine abuse, uncomplicated. Arrived on unit at 1700 from [facility] ED pod and placed on 15 min safety checks. Signed conditional voluntary. Medical issues: pt reports hx heart attack, chronic back pain which is helped by Methadone, fall prior to admission due to Seroquel OD resulting in abrasions right elbow and knee and right sided rib pain. States rib area was assessed in ED, but no imagery done. Rates pain to area #6 on scale 1-10(10 worse). Refused med offered for pain. States he will inform staff if pain persists/worsens. Denies substance use x3-4 weeks. States he had been clean and sober x8 months and relapsed 3-4 weeks ago for 1 day with etoh and heroin. SEGURA positive for Fentanyl and cocaine. Rates depression and anxiety #5 on scale 1-10(10 worse) Denies SI/HI, self harming thoughts. Denies AH/VH. Denies concerns with sleep and appetite. Precipitating events to admission: Pt previously admitted to unit 08/09/23-08/14/23. Pt was assessed by care team in [facility] ED 08/15/23 and disposition was discharge to community. Represented to [facility] ED via EMS called by an unknown person 08/17/23 after pt reported taking 20 50mg Seroquel pills and stated he was trying to kill himself. Pt reports falling due to Seroquel OD and reports more than 2 falls in last 6 months for unknown reasons, making him a high fall risk. Pt initially reluctant to admission to M3, preferring M5. Stating he has not worked well with doctor on this unit.Encouraged to work with staff on this unit to increase effectiveness of treatment. Alert and oriented x4. cooperative admission process. Dr Isabel/Dr Loredo notified of admission, orders received. Discharge instructions dated 08/14/23 utilized for current med list. No s/sx withdrawal symptoms. Pt denies s/sx withdrawal symptoms. Received maintenance Methadone today while in ED pod.
[2023-08-17 19:45] VITALS: BP 156/87; PULSE 58; RESP 18; TEMP 36.1; O2SAT 98
[2023-08-17] MEDS: QUEtiapine Fumarate 50 MG TABLET PO (20:50)
[2023-08-17] MEDS: hydrOXYzine HCL 25 MG TABLET PO (20:50)
[2023-08-18 08:54] VITALS: BP 136/73; PULSE 65; RESP 16; TEMP 36.4; O2SAT 98
[2023-08-18] MEDS: Propranolol HCL 10 MG TABLET PO (08:55)
[2023-08-18] MEDS: Escitalopram Oxalate 20 MG TABLET PO (08:55)
[2023-08-18] MEDS: buPROPion HCl XL 300 MG TAB.ER.24H PO (08:55)
[2023-08-18] MEDS: methADONE HCl 20 MG/2 ML ORAL.CONC 170 MG PO (08:57)
--- NOTE | 2023-08-18 10:27 | HO.PSYADMNOT ---
HPI Date of Service: 08/18/23 Chief Complaint: SI Sources of Information: patient interviewed HPI Subjective Notes: Conditional Voluntary Narrative: Patient seen and evaluated 11 a.m. 08/18/2023 Pt is 42 yo male hx depression sub abuse s/p suicide attempt had recently been discharged from psych unit had been taken off gabapentin question of gabapentin withdrawal. Patient has been on Wellbutrin Lexapro he status post quetiapine overdose. Positive for cocaine and fentanyl. Had been in a program recently there was question of diversion of some of his prescribed medication Patient recently been discharged from psychiatric unit been referred [facility] but states a history of poor response there States he does have outpatient providers states there is any past history of sobriety patient had been taken off of gabapentin last hospitalization he did recently refill a prescription of gabapentin and Adderall has reportedly been on gabapentin 600 t.i.d. for extended period of time history of suicide attempts Past Psychiatric History: -IP: [place] 08/24/22; [facility] 11/29/21 Hx of IPLOC at [facility] in 2020 due to SI. Recent [facility] admit Reports hx of SA by cutting wrist. TSS: Oct 2021 LIZBETH Choudhary -Past meds: Vyvanse, Methadone, Wellbutrin, Clonidine, Gabapentin, Seroquel, Buspar, Lexapro, Propranolol, Atarax, Promethazine -Pharmacy- [facility], [facility] Medical Evaluation Reviewed: Yes [facility] Medical History ADHD Opioid use disorder, severe, on maintenance therapy Family History: Pt denies Social History: -Currently homeless Born and raised in [place], by his mother. Two sisters Recent move from [place], and has been homeless since coming to this area Hx of incarceration for 12 years Denies current legal issues/probation/parole single, unemployed, 1 daughter(17 y/o) Substance History: History of cocaine opiate dependence has had periods of sobriety on methadone maintenance Trauma History: -Per chart, hx of PTSD from incarceration. Diagnostics Vital Signs (24Hr): Vital Signs - 24 hr 08/17/23 17:15 08/17/23 19:45 08/18/23 08:54 Temperature 97.1 F 97.0 F 97.6 F Pulse Rate 60 58 65 Respiratory Rate 16 18 16 Blood Pressure 139/84 156/87 H 136/73 Pulse Oximetry 97 98 98 Oxygen Delivery Method Room Air Room Air Room Air BMI result Body Mass Index 32.3 Labs 08/16/23 06:10 08/18/23 15:11 Meds/Allergies Meds Home Medications Medication Instructions Recorded Confirmed Type methadone 10 mg/5 mL oral solution 170 mg PO DAILY 02/12/23 08/17/23 History escitalopram oxalate 20 mg tablet 20 mg PO DAILY 08/15/23 08/17/23 History quetiapine 50 mg tablet 50 mg PO BEDTIME 08/15/23 08/17/23 History benzocaine 10 % mucosal gel 1 appl mucous membrane QID PRN 08/16/23 08/16/23 History (Anbesol (benzocaine)) Toothache bupropion HCl 150 mg tablet,12 hr 150 mg PO BID 08/17/23 08/17/23 History sustained-release propranolol 10 mg tablet 10 mg PO BID@0900,1500 08/17/23 08/17/23 History Allergies Allergies Allergy/AdvReac Type Severity Reaction Status Date / Time capsaicin AdvReac Severe Burning Verified 08/15/23 04:56 sensation Mental Status Exam Mental Status Exam Narrative: Patient is casually dressed anxious looking in appearance speech somewhat pressured mood depressed labile irritable feels upset over not having been treated recently with Adderall gabapentin irritable reactive when discussed issues related to sobriety when being prescribed controlled substances Insight judgment impulse control clearly impaired denies active self-harm in the setting ambivalent about treatment if not getting medication he feels he needs denies hallucinations or delusional material Assessment & Plan Assessment & Plan (1) MDD (major depressive disorder), recurrent episode, moderate: Status: Acute Code(s): F33.1 - Major depressive disorder, recurrent, moderate (2) Opioid use disorder, severe, on maintenance therapy: Status: Acute Code(s): F11.20 - Opioid dependence, uncomplicated (3) Thrombocytopenia: Status: Acute Code(s): D69.6 - Thrombocytopenia, unspecified Plan Continue Wellbutrin citalopram patient currently on methadone 170 mg restart low-dose gabapentin and taper encourage CSS/TSS Consider Section 35 monitor mood and safety check labs in EKG Patient educated on: diagnosis, medication risk/benefits and substance abuse Informed Consent: further education needed Reason for continued inpatient stay Substantial Risk for: harm to self Statement Statement: I have reviewed the history and physical and performed a pertinent examination on my patient. No changes have occurred unless specified. If the History and Physical was not performed prior to admission, the Hospitalist's service will be consulted for completing the admission physical. Time Spent With Patient Time: Total time managing care of this patient today ____ minutes.
[2023-08-18] MEDS: Benzocaine 20 % Oral Gel 9 GM TUBE 1 APPL MUCOUS MEM ×2 (13:15→17:20)
[2023-08-18] MEDS: Gabapentin 100 MG CAPSULE PO ×2 (15:19→20:31)
[2023-08-18] MEDS: hydrOXYzine HCL 25 MG TABLET PO (15:22)
[2023-08-18 15:32] LABS: Estimated Average Glucose 85 mg/dL; Hemoglobin A1c % 4.6 % (<6.0)
[2023-08-18 15:41] LABS: Alanine Aminotransferase 21 U/L (0-40); Albumin Level 4.5 g/dL (3.5-5.0); Alkaline Phosphatase 72 U/L (39-117); Anion Gap 14 (12-20); Aspartate Amino Transferase 23 U/L (5-37); Bilirubin Total 0.4 mg/dL (0.0-1.0); Blood Urea Nitrogen 8 mg/dL (9-16); Calcium 9.6 mg/dL (8.4-10.2); Carbon Dioxide 23 mmol/L (22-29); Chloride 104 mmol/L (96-108); Cholesterol 136 mg/dL (<200); Estimated Glomerular Filt Rate > 60; Glucose Fasting 61 mg/dL (60-99); HDL Cholesterol 47 mg/dL (>40); LDL Cholesterol Calculated 53 mg/dL (<100); Potassium 4.3 mmol/L (3.3-5.1); Sodium 137 mmol/L (135-145); Total Protein 8.2 g/dL (6.5-8.0); Triglycerides 183 mg/dL (<150)
[2023-08-18 15:55] LABS: Free T4 (Free Thyroxine) 0.96 ng/dL (0.71-1.85); Thyroid Stimulating Hormone 1.46 uIU/mL (0.32-4.0)
[2023-08-18 16:14] LABS: Vitamin B12 540 pg/mL (200-900)
[2023-08-18] MEDS: QUEtiapine Fumarate 50 MG TABLET PO (20:31)
[2023-08-18 20:33] VITALS: BP 113/59; PULSE 53; TEMP 37.2; O2SAT 96
[2023-08-19 08:45] VITALS: BP 136/61; PULSE 53; RESP 16; TEMP 35.8; O2SAT 97
[2023-08-19] MEDS: Escitalopram Oxalate 20 MG TABLET PO (08:51)
[2023-08-19] MEDS: Gabapentin 100 MG CAPSULE PO ×3 (08:51→20:31)
[2023-08-19] MEDS: buPROPion HCl XL 300 MG TAB.ER.24H PO (08:51)
[2023-08-19] MEDS: Propranolol HCL 10 MG TABLET PO ×2 (08:51→14:31)
[2023-08-19] MEDS: methADONE HCl 20 MG/2 ML ORAL.CONC 170 MG PO (08:53)
[2023-08-19] MEDS: hydrOXYzine HCL 25 MG TABLET PO (09:46)
[2023-08-19] MEDS: Acetaminophen 325 MG TABLET 650 MG PO (11:11)
[2023-08-19] MEDS: Benzocaine 20 % Oral Gel 9 GM TUBE 1 APPL MUCOUS MEM ×2 (11:12→14:09)
[2023-08-19 14:28] VITALS: BP 130/78; PULSE 58; RESP 16; O2SAT 96
[2023-08-19 19:45] VITALS: BP 120/57; PULSE 50; RESP 18; TEMP 36.4; O2SAT 97
[2023-08-19] MEDS: QUEtiapine Fumarate 50 MG TABLET PO (20:31)
--- NOTE | 2023-08-19 22:42 | P.PNPSI_ITS ---
Subjective Subjective Date of Service: 08/19/23 Reason For Visit: SI Subjective Notes: Conditional Voluntary Healthcare Proxy: No Guardianship: No Medical Problems Affecting Mental Status: No Interim History: Patient future oriented understands gabapentin 100 t.i.d was placed to prevent withdrawal. Patient asking about [facility] and other potential programs for addiction. He absolutely denies that he had diverted any his medication Has clear problems with irritability reactivity seemed in behavioral control in the milieu Medication Compliance: Yes Mental Status Exam Mental Status Exam Narrative: Patient is casually dressed cooperative appropriate looking in appearance speech much less irritable irritable affect appropriate able to discuss issues related to sobriety when being prescribed controlled substances Insight judgment impulse control clearly improved denies active self-harm asking for phone numbers for addiction treatment Diagnostics Vital Signs (24Hr): Vital Signs - 24 hr 08/19/23 08:45 08/19/23 14:28 08/19/23 19:45 Temperature 96.4 F L 97.6 F Pulse Rate 53 58 50 Respiratory Rate 16 16 18 Blood Pressure 136/61 130/78 120/57 L Pulse Oximetry 97 96 97 Oxygen Delivery Method Room Air Room Air Room Air BMI result Body Mass Index 32.3 Labs 08/16/23 06:10 08/18/23 15:11 Labs: Laboratory Results - last 48 hr 08/18/23 15:11 Sodium 137 Potassium 4.3 Chloride 104 Carbon Dioxide 23 Anion Gap 14 BUN 8 L Creatinine 0.84 Estim Creat Clear Calc 122.0 Estimated GFR > 60 Fasting Glucose 61 Estimat Average Glucose 85 Hemoglobin A1c % 4.6 Calcium 9.6 Total Bilirubin 0.4 AST 23 ALT 21 Alkaline Phosphatase 72 Total Protein 8.2 H Albumin 4.5 Triglycerides 183 H Cholesterol 136 LDL Cholesterol, Calc 53 HDL Cholesterol 47 Vitamin B12 540 Folate 8.0 TSH 1.46 Free T4 0.96 Imaging Radiology Impressions: ITS Impressions Ribs X-Ray 08/18/23 12:21 IMPRESSION: No acute displaced rib fracture or pneumothorax demonstrated Medications Medications Current Medications Acetaminophen (Acetaminophen 325 Mg Tablet) 650 mg PO Q6H PRN PRN Reason: Pain, Moderate(Pain Scale 4-6) Last Admin: 08/19/23 11:11 Dose: 650 mg Al Hydroxide/Mg Hydroxide (Magnesium Hydrox/Alum Hydrox 30 Ml Oral.Susp) 30 ml PO Q6H PRN PRN Reason: Heartburn/Nausea Benzocaine (Benzocaine 20 % Oral Gel 9 Gm Tube) 1 appl MUCOUS MEM QID PRN PRN Reason: Toothache Last Admin: 08/19/23 14:09 Dose: 1 appl Bupropion HCl (Bupropion Hcl Xl 300 Mg Tab.Er.24h) 300 mg PO DAILY [facility] Last Admin: 08/19/23 08:51 Dose: 300 mg Escitalopram Oxalate (Escitalopram Oxalate 20 Mg Tablet) 20 mg PO DAILY [facility] Last Admin: 08/19/23 08:51 Dose: 20 mg Gabapentin (Gabapentin 100 Mg Capsule) 100 mg PO TID [facility] Last Admin: 08/19/23 20:31 Dose: 100 mg Hydroxyzine HCl (Hydroxyzine Hcl 25 Mg Tablet) 25 mg PO Q6H PRN PRN Reason: Anxiety Last Admin: 08/19/23 09:46 Dose: 25 mg Magnesium Hydroxide (Milk Of Magnesia 30 Ml Oral.Susp) 30 ml PO DAILY PRN PRN Reason: Constipation Methadone HCl (Methadone Hcl 20 Mg/2 Ml Oral.Conc) 170 mg PO DAILY [facility] Last Admin: 08/19/23 08:53 Dose: 170 mg Nicotine Polacrilex (Nicotine Polacrilex 2 Mg Gum) 4 mg BUCCAL Q2H PRN PRN Reason: Nicotine Cravings Propranolol HCl (Propranolol Hcl 10 Mg Tablet) 10 mg PO BID@0900,1500 [facility]; Protocol Last Admin: 08/19/23 14:31 Dose: 10 mg Quetiapine Fumarate (Quetiapine Fumarate 50 Mg Tablet) 50 mg PO BEDTIME [facility] Last Admin: 08/19/23 20:31 Dose: 50 mg Trazodone HCl (Trazodone Hcl 50 Mg Tablet) 50 mg PO BEDTIME MRX1 PRN PRN Reason: Insomnia Allergies Allergies Allergy/AdvReac Type Severity Reaction Status Date / Time capsaicin AdvReac Severe Burning Verified 08/15/23 04:56 sensation Assessment & Plan Assessment & Plan (1) MDD (major depressive disorder), recurrent episode, moderate: Status: Acute Code(s): F33.1 - Major depressive disorder, recurrent, moderate (2) Opioid use disorder, severe, on maintenance therapy: Status: Acute Code(s): F11.20 - Opioid dependence, uncomplicated (3) Thrombocytopenia: Status: Acute Code(s): D69.6 - Thrombocytopenia, unspecified Plan Continue Wellbutrin citalopram patient currently on methadone 170 mg restart low-dose gabapentin and taper encourage CSS/TSS Patient future oriented monitor mood discharge planning seems to have a better perspective Patient educated on: diagnosis Informed Consent: further education needed Reason for continued inpatient stay Substantial Risk for: harm to self and rapid decompensation Time Spent With Patient Time: Total time managing care of this patient today ____ minutes.
[2023-08-20] MEDS: Benzocaine 20 % Oral Gel 9 GM TUBE 1 APPL MUCOUS MEM ×3 (00:53→17:24)
[2023-08-20] MEDS: hydrOXYzine HCL 25 MG TABLET PO (00:53)
[2023-08-20 08:26] VITALS: BP 135/70; PULSE 51; RESP 16; TEMP 36.2; O2SAT 99
[2023-08-20 08:55] VITALS: PULSE 62; RESP 18; O2SAT 96
[2023-08-20] MEDS: Escitalopram Oxalate 20 MG TABLET PO (09:12)
[2023-08-20] MEDS: Propranolol HCL 10 MG TABLET PO ×2 (09:12→15:56)
[2023-08-20] MEDS: buPROPion HCl XL 300 MG TAB.ER.24H PO (09:12)
[2023-08-20] MEDS: methADONE HCl 20 MG/2 ML ORAL.CONC 170 MG PO (09:13)
[2023-08-20] MEDS: Acetaminophen 325 MG TABLET 650 MG PO (13:21)
[2023-08-20 15:58] VITALS: BP 128/61; PULSE 65; RESP 18; O2SAT 96
[2023-08-20 18:00] VITALS: RESP 18
--- NOTE | 2023-08-20 22:13 | HO.PSYCHPN ---
Subjective Subjective Date of Service: 08/20/23 Reason For Visit: SI Interim History: calm, cooperative with SW and . states he hates both. generally stand-offish, upset at having his medications changed/stopped. asks why we are giving him seroquel when he just overdosed on it but not gabapentin. illogical explanation for his behaviors after recent discharge from [facility]. threatens to overdose again if discharged in short order. states he wants help getting into a substance use treatment program. per staff, admitted with new abrasions on elbows and knees. anx 5, dep 5. no AVH. bright and interactive through w/e. slept 7 hours overnight. Mental Status Exam Mental Status Exam Narrative: Patient is casually dressed uncooperative appropriate looking in appearance, no PMA/PMR. speech irritable. thoughts linear and illogical. affect irritable, inappropriate, mod-labile. no HI/AVH expressed. endorsed discharge-dependent suicide plan/intent. Insight judgment impulse control clearly impaired Diagnostics Vital Signs (24Hr): Vital Signs - 24 hr 08/20/23 08:26 08/20/23 08:55 08/20/23 15:58 Temperature 97.2 F Pulse Rate 51 62 65 Respiratory Rate 16 18 18 Blood Pressure 135/70 128/61 Pulse Oximetry 99 96 96 Oxygen Delivery Method Room Air Room Air Room Air 08/20/23 18:00 Temperature Pulse Rate Respiratory Rate 18 Blood Pressure Pulse Oximetry Oxygen Delivery Method BMI result Body Mass Index 32.3 Labs 08/16/23 06:10 08/18/23 15:11 Imaging Radiology Impressions: ITS Impressions Ribs X-Ray 08/18/23 12:21 IMPRESSION: No acute displaced rib fracture or pneumothorax demonstrated Medications Medications Current Medications Acetaminophen (Acetaminophen 325 Mg Tablet) 650 mg PO Q6H PRN PRN Reason: Pain, Moderate(Pain Scale 4-6) Last Admin: 08/20/23 13:21 Dose: 650 mg Al Hydroxide/Mg Hydroxide (Magnesium Hydrox/Alum Hydrox 30 Ml Oral.Susp) 30 ml PO Q6H PRN PRN Reason: Heartburn/Nausea Benzocaine (Benzocaine 20 % Oral Gel 9 Gm Tube) 1 appl MUCOUS MEM QID PRN PRN Reason: Toothache Last Admin: 08/20/23 17:24 Dose: 1 appl Bupropion HCl (Bupropion Hcl Xl 300 Mg Tab.Er.24h) 300 mg PO DAILY [facility] Last Admin: 08/20/23 09:12 Dose: 300 mg Escitalopram Oxalate (Escitalopram Oxalate 20 Mg Tablet) 20 mg PO DAILY [facility] Last Admin: 08/20/23 09:12 Dose: 20 mg Hydroxyzine HCl (Hydroxyzine Hcl 25 Mg Tablet) 25 mg PO Q6H PRN PRN Reason: Anxiety Last Admin: 08/20/23 00:53 Dose: 25 mg Magnesium Hydroxide (Milk Of Magnesia 30 Ml Oral.Susp) 30 ml PO DAILY PRN PRN Reason: Constipation Methadone HCl (Methadone Hcl 20 Mg/2 Ml Oral.Conc) 170 mg PO DAILY [facility] Last Admin: 08/20/23 09:13 Dose: 170 mg Nicotine Polacrilex (Nicotine Polacrilex 2 Mg Gum) 4 mg BUCCAL Q2H PRN PRN Reason: Nicotine Cravings Propranolol HCl (Propranolol Hcl 10 Mg Tablet) 10 mg PO BID@0900,1500 [facility]; Protocol Last Admin: 08/20/23 15:56 Dose: 10 mg Trazodone HCl (Trazodone Hcl 50 Mg Tablet) 50 mg PO BEDTIME MRX1 PRN PRN Reason: Insomnia Allergies Allergies Allergy/AdvReac Type Severity Reaction Status Date / Time capsaicin AdvReac Severe Burning Verified 08/15/23 04:56 sensation Assessment & Plan Assessment & Plan (1) MDD (major depressive disorder), recurrent episode, moderate: Status: Acute Code(s): F33.1 - Major depressive disorder, recurrent, moderate (2) Opioid use disorder, severe, on maintenance therapy: Status: Acute Code(s): F11.20 - Opioid dependence, uncomplicated (3) Thrombocytopenia: Status: Acute Code(s): D69.6 - Thrombocytopenia, unspecified Plan 08/18: Continue Wellbutrin citalopram patient currently on methadone 170 mg restart low-dose gabapentin and taper encourage CSS/TSS 08/19: Patient future oriented monitor mood discharge planning seems to have a better perspective 08/20: irritable with RACHEL and . DC gabapentin as a drug of abuse and one which pt was selling at his most recent placement. DC seroquel as pt recently overdosed on it, per his report, and it can be lethal in combination with opioids. use trazodone instead as it is less likely to be lethal in overdose. will taper and DC wellbutrin as it is another medication dangerous in overdose; pt would be essentially guaranteed to have seizures. also T/C DC of beta alonzo due to bradycardia, h/o syncopal episodes, cocaine use Hx and potential for acute coronary syndrome with combination. assisting with applications to [facility] for now. T/C section 35. Reason for continued inpatient stay Substantial Risk for: harm to self and rapid decompensation Time Spent With Patient Time: Total time managing care of this patient today __35__ minutes.
[2023-08-21 08:57] VITALS: BP 144/70; PULSE 54; RESP 16; TEMP 36.6; O2SAT 96
[2023-08-21] MEDS: Propranolol HCL 10 MG TABLET PO (09:02)
[2023-08-21] MEDS: Escitalopram Oxalate 20 MG TABLET PO (09:02)
[2023-08-21] MEDS: buPROPion HCl XL 150 MG TAB.ER.24H PO (09:02)
[2023-08-21] MEDS: methADONE HCl 20 MG/2 ML ORAL.CONC 170 MG PO (09:05)
[2023-08-21] MEDS: Benzocaine 20 % Oral Gel 9 GM TUBE 1 APPL MUCOUS MEM ×2 (11:16→18:31)
--- NOTE | 2023-08-21 15:08 | HO.PSYCHPN ---
Subjective Subjective Date of Service: 08/21/23 Reason For Visit: SI Interim History: declined to come for interview, stated he did not wish to speak with this provider. provider gave him an explanation for med changes in the past 24H. pt did wish to speak with [facility] cristine for CSS. per staff, c/o depression and anxiety. denies SI/HI/AVH. withdrawn on eves. refused check-in, refused VS. Mental Status Exam Mental Status Exam Narrative: Patient is casually dressed uncooperative appropriate looking in appearance, no PMA/PMR. speech irritable. thoughts linear and illogical. affect irritable, non-labile. no SI/HI/AVH expressed. Insight judgment impulse control clearly impaired Diagnostics Vital Signs (24Hr): Vital Signs - 24 hr 08/20/23 15:58 08/20/23 18:00 08/21/23 08:57 Temperature 97.8 F Pulse Rate 65 54 Respiratory Rate 18 18 16 Blood Pressure 128/61 144/70 H Pulse Oximetry 96 96 Oxygen Delivery Method Room Air Room Air BMI result Body Mass Index 32.3 Labs 08/16/23 06:10 08/18/23 15:11 Imaging Radiology Impressions: ITS Impressions Ribs X-Ray 08/18/23 12:21 IMPRESSION: No acute displaced rib fracture or pneumothorax demonstrated Medications Medications Current Medications Acetaminophen (Acetaminophen 325 Mg Tablet) 650 mg PO Q6H PRN PRN Reason: Pain, Moderate(Pain Scale 4-6) Last Admin: 08/20/23 13:21 Dose: 650 mg Al Hydroxide/Mg Hydroxide (Magnesium Hydrox/Alum Hydrox 30 Ml Oral.Susp) 30 ml PO Q6H PRN PRN Reason: Heartburn/Nausea Benzocaine (Benzocaine 20 % Oral Gel 9 Gm Tube) 1 appl MUCOUS MEM QID PRN PRN Reason: Toothache Last Admin: 08/21/23 11:16 Dose: 1 appl Bupropion HCl (Bupropion Hcl Xl 150 Mg Tab.Er.24h) 150 mg PO DAILY [facility] Last Admin: 08/21/23 09:02 Dose: 150 mg Escitalopram Oxalate (Escitalopram Oxalate 20 Mg Tablet) 20 mg PO DAILY [facility] Last Admin: 08/21/23 09:02 Dose: 20 mg Hydroxyzine HCl (Hydroxyzine Hcl 25 Mg Tablet) 25 mg PO Q6H PRN PRN Reason: Anxiety Last Admin: 08/20/23 00:53 Dose: 25 mg Magnesium Hydroxide (Milk Of Magnesia 30 Ml Oral.Susp) 30 ml PO DAILY PRN PRN Reason: Constipation Methadone HCl (Methadone Hcl 20 Mg/2 Ml Oral.Conc) 170 mg PO DAILY [facility] Last Admin: 08/21/23 09:05 Dose: 170 mg Nicotine Polacrilex (Nicotine Polacrilex 2 Mg Gum) 4 mg BUCCAL Q2H PRN PRN Reason: Nicotine Cravings Propranolol HCl (Propranolol Hcl 10 Mg Tablet) 10 mg PO BID@0900,1500 [facility]; Protocol Last Admin: 08/21/23 09:02 Dose: 10 mg Trazodone HCl (Trazodone Hcl 50 Mg Tablet) 50 mg PO BEDTIME MRX1 PRN PRN Reason: Insomnia Allergies Allergies Allergy/AdvReac Type Severity Reaction Status Date / Time capsaicin AdvReac Severe Burning Verified 08/15/23 04:56 sensation Assessment & Plan Assessment & Plan (1) MDD (major depressive disorder), recurrent episode, moderate: Status: Acute Code(s): F33.1 - Major depressive disorder, recurrent, moderate (2) Opioid use disorder, severe, on maintenance therapy: Status: Acute Code(s): F11.20 - Opioid dependence, uncomplicated (3) Thrombocytopenia: Status: Acute Code(s): D69.6 - Thrombocytopenia, unspecified Plan 08/18: Continue Wellbutrin citalopram patient currently on methadone 170 mg restart low-dose gabapentin and taper encourage CSS/TSS 08/19: Patient future oriented monitor mood discharge planning seems to have a better perspective 08/20: irritable with SW and MD. DC gabapentin as a drug of abuse and one which pt was selling at his most recent placement. DC seroquel as pt recently overdosed on it, per his report, and it can be lethal in combination with opioids. use trazodone instead as it is less likely to be lethal in overdose. will taper and DC wellbutrin as it is another medication dangerous in overdose; pt would be essentially guaranteed to have seizures. also T/C DC of beta alonzo due to bradycardia, h/o syncopal episodes, cocaine use Hx and potential for acute coronary syndrome with combination. assisting with applications to [facility] for now. T/C section 35. 08/21: pursing section 35. slept well last night. continue current mgmt. Reason for continued inpatient stay Substantial Risk for: harm to self, inability to function and rapid decompensation Time Spent With Patient Time: Total time managing care of this patient today __25__ minutes.
[2023-08-22 07:25] VITALS: BP 135/71; PULSE 53; RESP 16; TEMP 36.3; O2SAT 97
[2023-08-22] MEDS: Propranolol HCL 10 MG TABLET PO ×2 (08:18→15:17)
[2023-08-22] MEDS: Escitalopram Oxalate 20 MG TABLET PO (08:18)
[2023-08-22] MEDS: methADONE HCl 20 MG/2 ML ORAL.CONC 170 MG PO (08:19)
[2023-08-22] MEDS: buPROPion HCl XL 150 MG TAB.ER.24H PO (08:19)
[2023-08-22] MEDS: Benzocaine 20 % Oral Gel 9 GM TUBE 1 APPL MUCOUS MEM ×3 (09:47→20:07)
[2023-08-22] MEDS: Acetaminophen 325 MG TABLET 650 MG PO ×2 (11:48→18:24)
[2023-08-22] MEDS: hydrOXYzine HCL 25 MG TABLET PO ×2 (13:30→20:07)
[2023-08-22 15:15] VITALS: BP 133/73; PULSE 61; RESP 18; O2SAT 97
--- NOTE | 2023-08-22 16:32 | HO.PSYCHPN ---
Subjective Subjective Date of Service: 08/22/23 Reason For Visit: SI Interim History: pt relates the various rehabs he is in touch with, as well as a homeless intermediate. per staff, not attending groups. denies SI/HI/AVH. pleasant, cooperative. occasionally in the milieu. med-compliant, eating, sleeping. Mental Status Exam Mental Status Exam Narrative: Patient is casually dressed cooperative appropriate looking in appearance, no PMA/PMR. speech nml rate, amount, loudness, tone, latency.. thoughts linear and illogical. affect constricted, non-labile. no SI/HI/AVH expressed. Insight judgment impulse control improving Diagnostics Vital Signs (24Hr): Vital Signs - 24 hr 08/22/23 07:25 08/22/23 15:15 Temperature 97.3 F Pulse Rate 53 61 Respiratory Rate 16 18 Blood Pressure 135/71 133/73 Pulse Oximetry 97 97 Oxygen Delivery Method Room Air Room Air BMI result Body Mass Index 32.3 Labs 08/16/23 06:10 08/18/23 15:11 Imaging Radiology Impressions: ITS Impressions Ribs X-Ray 08/18/23 12:21 IMPRESSION: No acute displaced rib fracture or pneumothorax demonstrated Medications Medications Current Medications Acetaminophen (Acetaminophen 325 Mg Tablet) 650 mg PO Q6H PRN PRN Reason: Pain, Moderate(Pain Scale 4-6) Last Admin: 08/22/23 11:48 Dose: 650 mg Al Hydroxide/Mg Hydroxide (Magnesium Hydrox/Alum Hydrox 30 Ml Oral.Susp) 30 ml PO Q6H PRN PRN Reason: Heartburn/Nausea Benzocaine (Benzocaine 20 % Oral Gel 9 Gm Tube) 1 appl MUCOUS MEM QID PRN PRN Reason: Toothache Last Admin: 08/22/23 15:17 Dose: 1 appl Bupropion HCl (Bupropion Hcl Xl 150 Mg Tab.Er.24h) 150 mg PO DAILY [facility] Last Admin: 08/22/23 08:19 Dose: 150 mg Escitalopram Oxalate (Escitalopram Oxalate 20 Mg Tablet) 20 mg PO DAILY [facility] Last Admin: 08/22/23 08:18 Dose: 20 mg Hydroxyzine HCl (Hydroxyzine Hcl 25 Mg Tablet) 25 mg PO Q6H PRN PRN Reason: Anxiety Last Admin: 08/22/23 13:30 Dose: 25 mg Magnesium Hydroxide (Milk Of Magnesia 30 Ml Oral.Susp) 30 ml PO DAILY PRN PRN Reason: Constipation Methadone HCl (Methadone Hcl 20 Mg/2 Ml Oral.Conc) 170 mg PO DAILY [facility] Last Admin: 08/22/23 08:19 Dose: 170 mg Nicotine Polacrilex (Nicotine Polacrilex 2 Mg Gum) 4 mg BUCCAL Q2H PRN PRN Reason: Nicotine Cravings Propranolol HCl (Propranolol Hcl 10 Mg Tablet) 10 mg PO BID@0900,1500 [facility]; Protocol Last Admin: 08/22/23 15:17 Dose: 10 mg Trazodone HCl (Trazodone Hcl 50 Mg Tablet) 50 mg PO BEDTIME MRX1 PRN PRN Reason: Insomnia Allergies Allergies Allergy/AdvReac Type Severity Reaction Status Date / Time capsaicin AdvReac Severe Burning Verified 08/15/23 04:56 sensation Assessment & Plan Assessment & Plan (1) MDD (major depressive disorder), recurrent episode, moderate: Status: Acute Code(s): F33.1 - Major depressive disorder, recurrent, moderate (2) Opioid use disorder, severe, on maintenance therapy: Status: Acute Code(s): F11.20 - Opioid dependence, uncomplicated (3) Thrombocytopenia: Status: Acute Code(s): D69.6 - Thrombocytopenia, unspecified Plan 08/18: Continue Wellbutrin citalopram patient currently on methadone 170 mg restart low-dose gabapentin and taper encourage CSS/TSS 08/19: Patient future oriented monitor mood discharge planning seems to have a better perspective 08/20: irritable with RACHEL and MD. DC gabapentin as a drug of abuse and one which pt was selling at his most recent placement. DC seroquel as pt recently overdosed on it, per his report, and it can be lethal in combination with opioids. use trazodone instead as it is less likely to be lethal in overdose. will taper and DC wellbutrin as it is another medication dangerous in overdose; pt would be essentially guaranteed to have seizures. also T/C DC of beta alonzo due to bradycardia, h/o syncopal episodes, cocaine use Hx and potential for acute coronary syndrome with combination. assisting with applications to [facility] for now. T/C section 35. 08/21: pursing section 35. slept well last night. continue current mgmt. 08/22: pursuing section 35. appeared to have slept well last night. continue current mgmt. Reason for continued inpatient stay Substantial Risk for: inability to function and rapid decompensation Time Spent With Patient Time: Total time managing care of this patient today ____ minutes.
[2023-08-22 18:00] VITALS: BP 139/71; PULSE 62; RESP 18; TEMP 36.2; O2SAT 96
[2023-08-23 07:25] VITALS: BP 132/66; PULSE 81; RESP 14; TEMP 36.2; O2SAT 94
[2023-08-23] MEDS: methADONE HCl 20 MG/2 ML ORAL.CONC 170 MG PO (08:18)
[2023-08-23] MEDS: Escitalopram Oxalate 20 MG TABLET PO (08:19)
[2023-08-23] MEDS: Propranolol HCL 10 MG TABLET PO (08:19)
[2023-08-23] MEDS: buPROPion HCl XL 150 MG TAB.ER.24H PO (08:19)
[2023-08-23] MEDS: Benzocaine 20 % Oral Gel 9 GM TUBE 1 APPL MUCOUS MEM (09:25)
[2023-08-23] MEDS: Acetaminophen 325 MG TABLET 650 MG PO (09:26)
--- NOTE | 2023-08-23 13:04 | PM.PSYDC ---
DS: Providers Provider Date of Service: 08/23/23 Date of admission: 08/17/23 16:40 Primary care physician: Unknown Physician DS: Diagnosis Discharge Diagnosis (1) MDD (major depressive disorder), recurrent episode, moderate: Status: Acute (2) Opioid use disorder, severe, on maintenance therapy: Status: Acute (3) Thrombocytopenia: Status: Acute DS: Medications Discharge Medications Home Medications: Home Medications Medication Instructions Recorded Confirmed methadone 10 mg/5 mL oral solution 170 mg PO DAILY 02/12/23 08/17/23 escitalopram oxalate 20 mg tablet 20 mg PO DAILY 08/15/23 08/17/23 quetiapine 50 mg tablet 50 mg PO BEDTIME 08/15/23 08/17/23 benzocaine 10 % mucosal gel 1 appl mucous membrane QID PRN 08/16/23 08/16/23 (Anbesol (benzocaine)) Toothache bupropion HCl 150 mg tablet,12 hr 150 mg PO BID 08/17/23 08/17/23 sustained-release Data Data Completed and Pending Completed studies during hospitalization [Text1]: 08/18/23 15:11 Sodium 137 Potassium 4.3 Chloride 104 Carbon Dioxide 23 Anion Gap 14 BUN 8 L Creatinine 0.84 Estim Creat Clear Calc 122.0 Estimated GFR > 60 Fasting Glucose 61 Estimat Average Glucose 85 Hemoglobin A1c % 4.6 Calcium 9.6 Total Bilirubin 0.4 AST 23 ALT 21 Alkaline Phosphatase 72 Total Protein 8.2 H Albumin 4.5 Triglycerides 183 H Cholesterol 136 LDL Cholesterol, Calc 53 HDL Cholesterol 47 Vitamin B12 540 Folate 8.0 TSH 1.46 Free T4 0.96 Imaging Diagnostic Imaging Impressions Ribs X-Ray 08/18/23 12:21 IMPRESSION: No acute displaced rib fracture or pneumothorax demonstrated DS: Summary Hospital Course Hospital Course: per 08/18 admission note: Pt is 42 yo male hx depression sub abuse s/p suicide attempt had recently been discharged from [facility] psych unit had been taken off gabapentin question of gabapentin withdrawal. Patient has been on Wellbutrin Lexapro he status post quetiapine overdose. Positive for cocaine and fentanyl. Had been in a program recently there was question of diversion of some of his prescribed medication Patient recently been discharged from psychiatric unit been referred [facility] but states a history of poor response there States he does have outpatient providers states there is any past history of sobriety patient had been taken off of gabapentin last hospitalization he did recently refill a prescription of gabapentin and Adderall has reportedly been on gabapentin 600 t.i.d. for extended period of time history of suicide attempts Past Psychiatric History: [place] [facility] [place] [facility]x of [facility] due to SI. Recent [facility] admit Reports hx of SA by cutting wrist. TSS: Oct 2021 LIZBETH Choudhary -Past meds: Vyvanse, Methadone, Wellbutrin, Clonidine, Gabapentin, Seroquel, Buspar, Lexapro, Propranolol, Atarax, Promethazine -Pharmacy- [facility], [facility], [facility] [place], [facility] Medical Evaluation Reviewed: Yes [facility] Medical History ADHD Opioid use disorder, severe, on maintenance therapy Family History: Pt denies Social History: -Currently homeless Born and raised in [place], by his mother. Two sisters Recent move from [place], and has been homeless since coming to this area Hx of incarceration for 12 years Denies current legal issues/probation/parole single, unemployed, 1 daughter(17 y/o) Substance History: History of cocaine opiate dependence has had periods of sobriety on methadone maintenance Trauma History: -Per chart, hx of PTSD from incarceration. Precis: 08/18: Continue Wellbutrin citalopram patient currently on methadone 170 mg restart low-dose gabapentin and taper encourage CSS/TSS 08/19: Patient future oriented monitor mood discharge planning seems to have a better perspective 08/20: irritable with RACHEL and . DC gabapentin as a drug of abuse and one which pt was selling at his most recent placement. DC seroquel as pt recently overdosed on it, per his report, and it can be lethal in combination with opioids. use trazodone instead as it is less likely to be lethal in overdose. will taper and DC wellbutrin as it is another medication dangerous in overdose; pt would be essentially guaranteed to have seizures. also T/C DC of beta alonzo due to bradycardia, h/o syncopal episodes, cocaine use Hx and potential for acute coronary syndrome with combination. assisting with applications to [employer] for now. T/C section 35. 08/21: pursing section 35. slept well last night. continue current mgmt. 08/22: pursuing section 35. appeared to have slept well last night. continue current mgmt. 08/23: section 35 granted, pt discharged to police custody. Time Spent with Patient Time attestation: Total time managing care of this patient today ____ minutes. Time spent: Greater than 30 minutes Discharge Plan Discharge Anticipated Discharge Date/Time: 08/23/23 12:01 Patient Disposition: Xfer Other Discharge Diagnosis: major depression adhd opiate use disorder severe cocaine use disorder s/p overdose Referrals: [facility] [Other] (walk in if needed) Physician,Unknown J [Primary Care Provider] - 1 Week Discharge Medications: Continued escitalopram oxalate 20 mg tablet 20 mg PO DAILY quetiapine 50 mg tablet 50 mg PO BEDTIME Anbesol (benzocaine) 10 % Gel 1 appl MUCOUS MEMBRANE QID PRN (Reason: Toothache) bupropion HCl 150 mg Tablet Sustained-Release 12 Hr 150 mg PO BID methadone 10 mg/5 mL Solution 170 mg PO DAILY Patient Comments: Dose confirmed by [facility] 08/03/23 Rx Instructions: Dosed with 170mg on M3 08/15/23 Given 60mg in ED this AM 08/16 due to increased sedation. Discontinued propranolol 10 mg Tablet 10 mg PO BID@0900,1500 Discharge Orders: Discharge Order (Routine); Ordered 08/23/23 Ordered By: Martin Loredo Activity on Discharge: As tolerated Stand Alone Forms: Patient Portal Discharge page, Community Support Care Plan Goals: sobriety stabilize mood maintain safety engage in tx program Health Concerns: low platelets substance use at risk for overdose suiicde depression Plan of Treatment: recommend rehab facility dr sanz filed sec 35 ongoing med management for mood subsatnce use recommend [facility] tx for sub use when able Assessment: pt has not been going to [facility] stating he will just go out and use reccent suicide attempt in this context of ongoing substance use Discharge Date/Time: 08/23/23 12:49
== END 2023-08-23 12:49 | disposition other institution (70) | DRG 751 ==
LOC: HO.ED 08-17 16:48 → HO.PADLT16 08-17 16:53
PROVIDERS: Internal Medicine; Admitting Provider Psychiatry & Neurology Psychiatry; Emergency Provider Emergency Medicine Emergency Medical Services; Visit Provider Psychiatry & Neurology Psychiatry
DX: F33.1 Major depressive disorder, recurrent, moderate (principal); D69.6 Thrombocytopenia, unspecified; F43.10 Post-traumatic stress disorder, unspecified; F90.9 Attention-deficit hyperactivity disorder, unspecified type; F11.20 Opioid dependence, uncomplicated; F14.20 Cocaine dependence, uncomplicated; Z59.02 Unsheltered homelessness; Z91.51 Personal history of suicidal behavior; Z20.822 Contact with and (suspected) exposure to COVID-19; Z87.891 Personal history of nicotine dependence; Z79.899 Other long term (current) drug therapy
CPT/HCPCS: 36415; 71101; 80053; 80061; 80143; 80179; 80307; 81003; 82607; 82746; 83036; 83735; 84439; 84443; 85025; 87635; 93005; 99285; S9485

== ENCOUNTER → 2023-08-17 16:40 | Outpatient (BNV) | payer OTHER, SELFPAY | PROVIDERS: Admitting Provider Psychiatry & Neurology Psychiatry; Emergency Provider Emergency Medicine Emergency Medical Services; Visit Provider Psychiatry & Neurology Psychiatry | DX: F33.1 Major depressive disorder, recurrent, moderate (principal); F11.20 Opioid dependence, uncomplicated; D69.6 Thrombocytopenia, unspecified | CPT/HCPCS: 99231; 99232; 99239 ==

== ENCOUNTER → 2023-08-17 16:40 | Outpatient (BNV) | payer OTHER, SELFPAY | PROVIDERS: Admitting Provider Psychiatry & Neurology Psychiatry; Emergency Provider Emergency Medicine Emergency Medical Services; Visit Provider Psychiatry & Neurology Psychiatry | DX: F33.1 Major depressive disorder, recurrent, moderate (principal); F11.20 Opioid dependence, uncomplicated; D69.6 Thrombocytopenia, unspecified | CPT/HCPCS: 90792; 99232 ==

== ENCOUNTER 2023-09-20 00:15 | Emergency (ER) | payer OTHER, SELFPAY ==
[2023-09-20 00:18] VITALS: BP 132/70; PULSE 88; RESP 16; TEMP 36.4; O2SAT 96; BMI 32.3
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
[2023-09-20 00:52] LABS: Basophils Percent Auto 0.3 % (0-2); Eosinophils Percent Auto 0.3 % (0-4); Hematocrit 41.9 % (42.0-52.0); Hemoglobin 14.8 g/dl (14.0-18.0); Imm Gran Abs Auto 0.11 X10*3/uL (0.00-0.03); Imm Gran Pct Auto 0.7 % (0.0-0.4); Lymphocytes Absolute Auto 4.6 X10*3/uL (1.2-4.9); Lymphocytes Percent Auto 29.6 % (20-40); MANUAL DIFF FLAG SCAN; Mean Corpuscular HGB Conc 35.3 g/dl (31.0-36.0); Mean Corpuscular Hemoglobin 30.2 pg (27.0-33.0); Mean Corpuscular Volume 85.5 fL (80.0-98.0); Mean Platelet Volume 11.5 fL (9.4-12.4); Monocytes Absolute Auto 1.5 X10*3/uL (0.1-1.2); Monocytes Percent Auto 9.8 % (2-11); Neutrophils Absolute Auto 9.3 x10*3/uL (2.0-8.3); Neutrophils Percent Auto 59.3 % (45-73); PLT CLUMP 1; SCAN SMEAR FLAG 1
[2023-09-20 00:53] LABS: Platelet Count 207 X10*3/uL (160-400); White Blood Count 15.7 X10*3/uL (4.8-10.8)
[2023-09-20 00:58] LABS: Alanine Aminotransferase 34 U/L (0-40); Albumin Level 4.6 g/dL (3.5-5.0); Alkaline Phosphatase 86 U/L (39-117); Anion Gap 15 (12-20); Aspartate Amino Transferase 49 U/L (5-37); Bilirubin Total 0.9 mg/dL (0.0-1.0); Blood Urea Nitrogen 19 mg/dL (9-16); Calcium 9.7 mg/dL (8.4-10.2); Carbon Dioxide 21 mmol/L (22-29); Chloride 105 mmol/L (96-108); Creatinine Clr Calc Pharmacy 102.5; Estimated Glomerular Filt Rate > 60; Ethanol < 10 mg/dL; Glucose Random 114 mg/dL (60-115); Potassium 4.2 mmol/L (3.3-5.1); Sodium 137 mmol/L (135-145); Total Protein 8.6 g/dL (6.5-8.0)
[2023-09-20 01:06] LABS: SLIDE REVIEW VERIFIED
--- NOTE | 2023-09-20 06:22 | PC.NURSE ---
patient slept through the night, no distress observed/reported, behavior non concerning, care consult ordered for suicidal ideation, pending care team evaluation, med rec completed/pending provider's approval, methadone dose verified/verification paper faxed to pharmacy, labs completed/pending tox screen, will continue to monitor.
[2023-09-20 06:26] LABS: Appearance Urine Clear; Color Urine Dark Yellow; Glucose Urine UA Negative (Negative); Leukocyte Esterase Urine Negative (Negative); Nitrite Urine Negative (Negative); PH 5.5 (5.0-9.0); Specific Gravity - Urine >= 1.030 (1.005-1.025); Urine Blood Negative (Negative); Urine Ketones 15 mg/dL (Negative); Urine Protein Trace mg/dL (Neg-Trace)
[2023-09-20 06:37] LABS: Amphetamine Screen Urine Not Detected (Not Detect); Barbiturates, Urine Not Detected (Not Detect); Benzodiazepines Screen Urine Not Detected (Not Detect); Cannabinoid Screen Urine Not Detected (Not Detect); Cocaine Screen Urine POSITIVE (Not Detect); Fentanyl, urine POSITIVE (Not Detect); Opiate Screen Urine POSITIVE (Not Detect); Phencyclidine Screen Urine Not Detected (Not Detect)
--- NOTE | 2023-09-20 06:42 | HE.PHANOTE ---
RE METHADONE VERIFICATION LAST DOSE 170 MG GIVEN AT [facility] ON 09/19/23 @1218
--- NOTE | 2023-09-20 07:43 | PHA.MEDREC ---
Pharmacy Consult ? Medication Reconciliation Pharmacy has completed the medication reconciliation. Reviewed med rec done by nursing
--- NOTE | 2023-09-20 07:50 | PC.NURSE ---
patient appears to be sleeping at this time, resting quietly in room with even and unlabored respirations. no signs/symptoms of distress. awaiting care team eval.
--- NOTE | 2023-09-20 08:21 | PC.NURSE ---
care team in meeting with patient
[2023-09-20 08:34] VITALS: BP 110/64; PULSE 72; RESP 16; TEMP 36.4; O2SAT 98
[2023-09-20] MEDS: methADONE HCl 20 MG/2 ML ORAL.CONC 170 MG PO (08:45)
[2023-09-20] MEDS: Gabapentin 600 MG TABLET PO ×3 (08:46→19:54)
[2023-09-20] MEDS: Propranolol HCL 20 MG TABLET PO ×2 (08:46→19:54)
[2023-09-20] MEDS: Dextroamphetamine/Amphetamine XR 10 MG CAP.ER.24H 30 MG PO (08:46)
[2023-09-20] MEDS: buPROPion HCl XL 300 MG TAB.ER.24H PO (08:46)
[2023-09-20] MEDS: Escitalopram Oxalate 20 MG TABLET PO (08:47)
[2023-09-20] MEDS: levETIRAcetam 500 MG TABLET PO ×2 (08:47→19:54)
--- NOTE | 2023-09-20 08:53 | PC.NURSE ---
medicated per the MAR, awaiting dispo from care team. patient continues to rest quietly in room
--- NOTE | 2023-09-20 09:28 | PC.NURSE ---
care team met with patient to inform him he is to be a dual diagnosis bedsearch, continues to rest quietly in room offering no complaints
--- NOTE | 2023-09-20 14:48 | MHC.CARE ---
Care Team received call from Judi at [facility]. She informed this promotion writer that pt cannot go to [facility] unless he has medications in hand. I spoke to pt who states that he does not have medications in hand and does not have them at the pharmacy. Pt will continue to be a dual dx bedsearch.
[2023-09-20 18:26] VITALS: BP 122/67; PULSE 60; RESP 14; TEMP 36.6; O2SAT 98
[2023-09-20] MEDS: QUEtiapine Fumarate 50 MG TABLET PO (19:54)
[2023-09-20 19:55] VITALS: BP 118/70; PULSE 61; RESP 18; O2SAT 96
--- NOTE | 2023-09-21 06:19 | PC.NURSE ---
Patient slept through the night, no distress observed/reported, behavior non concerning, medication compliant, disposition per care team is voluntary dual diagnose bed search, labs completed/resulted, VSS, will continue to monitor.
[2023-09-21 07:39] VITALS: BP 128/78; PULSE 68; RESP 18; TEMP 37.9; O2SAT 98
[2023-09-21] MEDS: methADONE HCl 20 MG/2 ML ORAL.CONC 170 MG PO (08:08)
[2023-09-21] MEDS: levETIRAcetam 500 MG TABLET PO (08:09)
[2023-09-21] MEDS: Dextroamphetamine/Amphetamine XR 10 MG CAP.ER.24H 30 MG PO (08:09)
[2023-09-21] MEDS: Propranolol HCL 20 MG TABLET PO (08:09)
[2023-09-21] MEDS: Escitalopram Oxalate 20 MG TABLET PO (08:09)
[2023-09-21] MEDS: Gabapentin 600 MG TABLET PO ×2 (08:09→14:58)
[2023-09-21] MEDS: buPROPion HCl XL 300 MG TAB.ER.24H PO (08:09)
--- NOTE | 2023-09-21 11:31 | MHC.CARE ---
Pt was accepted to [facility] for admission at 4pm today 09/21/23. Accepting provider is Dr. Melgar. Address is [address] [place] [id number]. Pod RN was notified. CARE team is filling out 12 and will have RN complete transport paperwork. If there are any transport issues [facility] Intake staff would like to be notified.
[2023-09-21] MEDS: LORazepam 1 MG TABLET PO (12:29)
[2023-09-21] MEDS: Promethazine HCL 25 MG TABLET PO (13:29)
[2023-09-21 14:45] VITALS: BP 118/76; PULSE 77; RESP 16; TEMP 36.2; O2SAT 95
== END 2023-09-21 17:40 ==
PROVIDERS: Emergency Provider Emergency Medicine
DX: F19.10 Other psychoactive substance abuse, uncomplicated (principal); R45.851 Suicidal ideations; F32.A Depression, unspecified; F11.20 Opioid dependence, uncomplicated; F90.9 Attention-deficit hyperactivity disorder, unspecified type; Z91.51 Personal history of suicidal behavior; Z79.899 Other long term (current) drug therapy
CPT/HCPCS: 36415; 80053; 80307; 81003; 85025; 99285; S9485

== ENCOUNTER 2023-10-11 04:51 | Emergency (ER) | payer OTHER, SELFPAY ==
[2023-10-11 04:56] VITALS: BP 141/88; PULSE 87; RESP 18; TEMP 36.8; O2SAT 100; BMI 32.3
[2023-10-11 05:22] LABS: MANUAL DIFF FLAG NO
[2023-10-11 05:23] LABS: Basophils Percent Auto 0.4 % (0-2); Eosinophils Absolute Auto 0.3 X10*3/uL (0.0-0.4); Eosinophils Percent Auto 3.5 % (0-4); Hematocrit 42.6 % (42.0-52.0); Hemoglobin 14.8 g/dl (14.0-18.0); Imm Gran Abs Auto 0.04 X10*3/uL (0.00-0.03); Imm Gran Pct Auto 0.5 % (0.0-0.4); Lymphocytes Absolute Auto 2.3 X10*3/uL (1.2-4.9); Lymphocytes Percent Auto 29.2 % (20-40); Mean Corpuscular HGB Conc 34.7 g/dl (31.0-36.0); Mean Corpuscular Hemoglobin 29.6 pg (27.0-33.0); Mean Corpuscular Volume 85.2 fL (80.0-98.0); Mean Platelet Volume 10.3 fL (9.4-12.4); Monocytes Absolute Auto 0.5 X10*3/uL (0.1-1.2); Monocytes Percent Auto 5.8 % (2-11); Neutrophils Absolute Auto 4.8 x10*3/uL (2.0-8.3); Neutrophils Percent Auto 60.6 % (45-73); Platelet Count 171 X10*3/uL (160-400); Red Cell Distribution Width 13.2 % (11.0-16.0); White Blood Count 7.9 X10*3/uL (4.8-10.8)
[2023-10-11 05:31] LABS: Appearance Urine Cloudy; Color Urine Dark Yellow; Glucose Urine UA Negative (Negative); Leukocyte Esterase Urine Negative (Negative); Nitrite Urine Negative (Negative); Specific Gravity - Urine >= 1.030 (1.005-1.025); Urine Blood Negative (Negative); Urine Ketones Negative (Negative); Urine Protein Trace mg/dL (Neg-Trace)
[2023-10-11 05:33] LABS: COVID-19 Test Negative (Negative); IDNOW Serial# BCCEAD1C
[2023-10-11 05:41] LABS: Amphetamine Screen Urine POSITIVE (Not Detect); Barbiturates, Urine Not Detected (Not Detect); Benzodiazepines Screen Urine POSITIVE (Not Detect); Cannabinoid Screen Urine Not Detected (Not Detect); Cocaine Screen Urine POSITIVE (Not Detect); Fentanyl, urine POSITIVE (Not Detect); Opiate Screen Urine POSITIVE (Not Detect); Phencyclidine Screen Urine Not Detected (Not Detect)
[2023-10-11 05:45] LABS: Alanine Aminotransferase 81 U/L (0-40); Albumin Level 4.6 g/dL (3.5-5.0); Alkaline Phosphatase 118 U/L (39-117); Anion Gap 14 (12-20); Aspartate Amino Transferase 68 U/L (5-37); Bilirubin Total 0.6 mg/dL (0.0-1.0); Blood Urea Nitrogen 21 mg/dL (9-16); Calcium 9.9 mg/dL (8.4-10.2); Carbon Dioxide 27 mmol/L (22-29); Chloride 103 mmol/L (96-108); Creatinine Clr Calc Pharmacy 103.5; Estimated Glomerular Filt Rate > 60; Ethanol < 10 mg/dL; Glucose Random 110 mg/dL (60-115); Potassium 3.9 mmol/L (3.3-5.1); Sodium 140 mmol/L (135-145); Total Protein 8.9 g/dL (6.5-8.0)
--- NOTE | 2023-10-11 06:06 | PC.NURSE ---
when t/w verified his last dose at [facility] the nurse stated he only dosed there two days and previously he was hospitalized at the [facility]
--- NOTE | 2023-10-11 06:22 | HE.PHANOTE ---
RE METHADONE [place], 170 MG LAST DOSED 10/10/2023 JOHAN
--- NOTE | 2023-10-11 06:50 | ED_ITS ---
HPI - General Adult General Chief complaint: Psychiatric Symptoms Stated complaint: OD 4 hours ago Time Seen by Provider: 10/11/23 06:35 Source: patient Mode of arrival: ambulatory Limitations: altered mental status History of Present Illness HPI narrative: 42-year-old male with PMH of substance abuse, ETOH abuse, and MDD presents for heroin overdose with suicidal ideation. Patient states he is suicidal, but denies homicidal ideation. He denies auditory and visual hallucinations. He reports his whole body aches and he has chills. He reports a headache, but no visual changes. He denies head trauma and falls. He denies a history of seizures. He denies chest pain, palpitations, and shortness of breath. No nausea or vomiting. No lightheadedness or dizziness. He takes 170 mg of methadone daily. He sees a therapist and is adherent to his medications. He is interested in inpatient treatment for his SI and drug use. Related Data Home Medications Medication Instructions Recorded Confirmed methadone 10 mg/5 mL oral solution 170 mg PO DAILY 02/12/23 10/11/23 bupropion HCl 300 mg 24 hr tablet, 300 mg PO DAILY 09/20/23 10/11/23 extended release escitalopram oxalate 20 mg tablet 20 mg PO DAILY 09/20/23 10/11/23 gabapentin 600 mg tablet 600 mg PO TID 09/20/23 10/11/23 levetiracetam 500 mg tablet 500 mg PO BID 09/20/23 10/11/23 nicotine (polacrilex) 4 mg gum 4 mg PO Q2H PRN Nicotine Cravings 09/20/23 10/11/23 propranolol 20 mg tablet 20 mg PO BID 09/20/23 10/11/23 quetiapine 50 mg tablet 50 mg PO BEDTIME PRN Anxiety 09/20/23 10/11/23 dextroamphetamine-amphetamine 20 1 tab PO BID 10/11/23 10/11/23 mg tablet Allergies Allergy/AdvReac Type Severity Reaction Status Date / Time capsaicin AdvReac Severe Burning Verified 09/20/23 00:21 sensation Review of Systems 2 Review of Systems: Constitutional : No Fever, + Chills Eyes: No Eye Pain, No Swelling, No Redness Cardiovascular : No Chest Pain, No SOB Respiratory : No Cough, No Sputum, No Dyspnea Gastrointestinal : No Nausea, No Vomiting, No Diarrhea Genitourinary : No Dysuria, No Urinary Frequency, No Hematuria Musculoskeletal : + Myalgias Skin : No Skin Lesions, No rash Neuro : No Weakness, No Numbness, No Paresthesias, No Dizziness, + Headache Psych : No Anxiety, + Depression, + SI, No HI, No auditory/visual hallucination All other systems reviewed and are negative [facility] Past Medical History Attestation statement: The following information was validated with the patient. Source: old records reviewed and nursing notes reviewed Medical History Drug overdose Acute hypokalemia Syncopal episodes ADHD Opioid use disorder, severe, on maintenance therapy Social History Social History Household Members: None Housing: Homeless Do you presently have visiting nurse or other home services: No Alcohol intake: current Alcohol intake frequency: 3 or more drinks per day Alcohol type: hard liquor Comment: arie Patient Tobacco Use Status: Former Tobacco user Quit Date: 3 years ago Tobacco use type: Cigarette Years Smoked: 15 e-Cigarette/Vaping Use: Never Used Second Hand Smoke Exposure: No Substance Use Type: Heroin Advance Directives: No Advance Directives Information Provided: No Healthcare Proxy: No Guardian: No service: No Current occupational status: unemployed Sexual orientation: Straight/Heterosexual Physical Exam ED Vital Signs: Vital Signs - 24 hr 10/11/23 04:56 10/11/23 10:16 Temperature 98.2 F 98.3 F Pulse Rate 87 85 Respiratory Rate 18 Blood Pressure 141/88 H 100/59 L Pulse Oximetry 100 98 Oxygen Delivery Method Room Air Room Air BMI result Body Mass Index 32.3 Vss Appearance: Sleepy but arousable. Oriented X3.? Calm and cooperative. Slow speech. No acute distress.? Head: Normocephalic, atraumatic, no step-offs or deformities Eyes: Pupils dilated and nonreactive to light. Pupils equal and round. CVS: Normal heart rate and rhythm.? Pulses normal.? Respiratory: No respiratory distress.? Breath sounds normal.? Abdomen: Soft and nontender.? Skin: Skin warm and dry.? Normal skin color.? Normal skin turgor.? Extremities: No lower extremity edema.? No calf ttp. 5/5 strength to bilateral upper and lower extremities Neuro: Oriented X 3.? No motor deficit.? No sensory deficit. CN 2-12 intact Course Reevaluation(s) Reevaluation #1: CBC with no acute findings. Chemistry unremarkable. Patient is noted to have slightly elevated transaminases and alk-phos no abdominal pain however, will have him follow-up with PCP. UA without infection. Patient was who got patient accepted into [facility] dual diagnosis unit. Patient agreeable to plan. Time: 12:57 Medications Administered Generic Name Dose Route Start Last Admin Trade Name Klaus PRN Reason Stop Dose Admin Amphetamine/Dextroamphetamine 20 mg 10/11/23 10:15 10/11/23 10:27 Amphetamine Mixed Salts 10 Mg Tablet PO 20 mg BID CONNOR Administration Bupropion HCl 300 mg 10/11/23 09:00 10/11/23 10:16 Bupropion Hcl Xl 300 Mg Tab.Er.24h PO 300 mg DAILY CONNOR Administration Escitalopram Oxalate 20 mg 10/11/23 09:00 10/11/23 10:16 Escitalopram Oxalate 20 Mg Tablet PO 20 mg DAILY CONNOR Administration Gabapentin 600 mg 10/11/23 09:00 10/11/23 10:16 Gabapentin 600 Mg Tablet PO 600 mg TID CONNOR Administration Levetiracetam 500 mg 10/11/23 09:00 10/11/23 10:16 Levetiracetam 500 Mg Tablet PO 500 mg BID CONNOR Administration Methadone HCl 170 mg 10/11/23 09:00 10/11/23 10:17 Methadone Hcl 20 Mg/2 Ml Oral.Conc PO 170 mg DAILY CONNOR Administration Propranolol HCl 20 mg 10/11/23 09:00 10/11/23 10:16 Propranolol Hcl 20 Mg Tablet PO Not Given BID CONNOR Protocol Medical Decision Making Medical Decision Making MDM Narrative: 42-year-old male presents for heroin overdose and active suicidal ideation. PE: Sleepy but arousable. Normal RR. Breath sounds clear. Pupils dilated and nonreactive. Likely somnolence secondary to polypharmacy, overdose, MMD with suicidal ideation, bipolar unlikely psychosis, ischemic stroke, hemorrhagic stroke, encephalopathy. Will rule out metabolic derangements. Plan: Labs, UA, head CT Differential Diagnosis Differential Diagnoses: The differential diagnosis associated with the presentation includes Likely somnolence secondary to polypharmacy, overdose, MMD with suicidal ideation, bipolar unlikely psychosis, ischemic stroke, hemorrhagic stroke, encephalopathy. Will rule out metabolic derangements. Admission/Observation Consideration of admission/observation: Escalation of care including admission/observation considered unlikely Lab Data 10/11/23 05:15 10/11/23 05:15 Labs: Lab Results 10/11/23 10/11/23 Range/Units 05:15 05:24 WBC 7.9 (4.8-10.8) X10*3/uL RBC 5.00 (4.60-5.80) X10*6/uL Hgb 14.8 (14.0-18.0) g/dl Hct 42.6 (42.0-52.0) % MCV 85.2 (80.0-98.0) fL MCH 29.6 (27.0-33.0) pg MCHC 34.7 (31.0-36.0) g/dl RDW 13.2 (11.0-16.0) % Plt Count 171 (160-400) X10*3/uL MPV 10.3 (9.4-12.4) fL Immature Gran % (Auto) 0.5 H (0.0-0.4) % Neut % (Auto) 60.6 (45-73) % Lymph % (Auto) 29.2 (20-40) % Stafford % (Auto) 5.8 (2-11) % Eos % (Auto) 3.5 (0-4) % Baso % (Auto) 0.4 (0-2) % Lymph # (Auto) 2.3 (1.2-4.9) X10*3/uL Stafford # (Auto) 0.5 (0.1-1.2) X10*3/uL Eos # (Auto) 0.3 (0.0-0.4) X10*3/uL Baso # (Auto) 0.0 (0.0-0.2) X10*3/uL Abs Immat Gran (auto) 0.04 H (0.00-0.03) X10*3/uL Absolute Neuts (auto) 4.8 (2.0-8.3) x10*3/uL Absolute Nucleated RBC 0.000 (0.0-0.012) X10*3/uL Nucleated RBC % (auto) 0.0 (0.0-0.2) /100WBC Sodium 140 (135-145) mmol/L Potassium 3.9 (3.3-5.1) mmol/L Chloride 103 (96-108) mmol/L Carbon Dioxide 27 (22-29) mmol/L Anion Gap 14 (12-20) BUN 21 H (9-16) mg/dL Creatinine 0.99 (0.5-1.4) mg/dL Estim Creat Clear Calc 103.5 Estimated GFR > 60 Random Glucose 110 (60-115) mg/dL Calcium 9.9 (8.4-10.2) mg/dL Total Bilirubin 0.6 (0.0-1.0) mg/dL AST 68 H (5-37) U/L ALT 81 H (0-40) U/L Alkaline Phosphatase 118 H (39-117) U/L Total Protein 8.9 H (6.5-8.0) g/dL Albumin 4.6 (3.5-5.0) g/dL Urine Color Dark Yellow Urine Appearance Cloudy Urine pH 5.0 (5.0-9.0) Ur Specific Ayer >= 1.030 H (1.005-1.025) Urine Protein Trace (Neg-Trace) mg/dL Urine Glucose (UA) Negative (Negative) mg/dL Urine Ketones Negative (Negative) mg/dL Urine Blood Negative (Negative) Urine Nitrite Negative (Negative) Ur Leukocyte Esterase Negative (Negative) Urine Opiates Screen POSITIVE H (Not Detect) Urine Fentanyl Screen POSITIVE H (Not Detect) Ur Barbiturates Screen Not Detected (Not Detect) Ur Phencyclidine Scrn Not Detected (Not Detect) Ur Amphetamines Screen POSITIVE H (Not Detect) U Benzodiazepines Scrn POSITIVE H (Not Detect) Urine Cocaine Screen POSITIVE H (Not Detect) U Marijuana (THC) Screen Not Detected (Not Detect) Ethyl Alcohol < 10 mg/dL COVID-19 (HONG) Negative (Negative) COVID-19 Clin Com See Note Critical Care Time Critical Care Time Critical Care Time: No Discharge Plan Discharge Clinical Impression: Depression, Polysubstance abuse Patient Disposition: Xfer SNF Transfer Details: [facility] Instructions: Depression (ED), Polysubstance Abuse (ED) Additional Instructions: Take your medications as prescribed. If you were prescribed antibiotics today, it is important that you take your medication to their entirety, do not skip any doses, do not finish them early. Follow-up with your primary care provider this week. Return to the emergency department with new or worsening symptoms. Such as fevers, chills, chest pain, shortness of breath, nausea, vomiting, dizziness, headache, vision changes, lethargy In case of emergency call 911 Prescriptions: No Action gabapentin 600 mg tablet 600 mg PO TID levetiracetam 500 mg tablet 500 mg PO BID nicotine (polacrilex) 4 mg gum 4 mg PO Q2H PRN (Reason: Nicotine Cravings) propranolol 20 mg tablet 20 mg PO BID escitalopram oxalate 20 mg tablet 20 mg PO DAILY bupropion HCl 300 mg tablet extended release 24 hr 300 mg PO DAILY quetiapine 50 mg tablet 50 mg PO BEDTIME PRN (Reason: Anxiety) methadone 10 mg/5 mL Solution 170 mg PO DAILY Patient Comments: Dose confirmed by [facility] 08/03/23 Rx Instructions: Dose verified from [employer] phone # [phone]. Dose verified by [facility] dextroamphetamine-amphetamine 20 mg tablet 1 tab PO BID Referrals: Arleth Bains MD [Emergency Provider] - 2 days Interventions: [place]-Suicide Risk Severity Scale Last Done: 10/11/23 06:31
[2023-10-11 10:16] VITALS: BP 100/59; PULSE 85; TEMP 36.8; O2SAT 98
[2023-10-11] MEDS: Gabapentin 600 MG TABLET PO (10:16)
[2023-10-11] MEDS: Escitalopram Oxalate 20 MG TABLET PO (10:16)
[2023-10-11] MEDS: levETIRAcetam 500 MG TABLET PO (10:16)
[2023-10-11] MEDS: buPROPion HCl XL 300 MG TAB.ER.24H PO (10:16)
[2023-10-11] MEDS: methADONE HCl 20 MG/2 ML ORAL.CONC 170 MG PO (10:17)
[2023-10-11] MEDS: Amphetamine Mixed Salts 10 MG TABLET 20 MG PO (10:27)
--- NOTE | 2023-10-11 11:37 | MHC.RECOVSUP ---
Met with pt per Care Team to check in for recovery needs. Pt informs he is not interested in recovery resources at this time and just wants help with his mental health.
--- NOTE | 2023-10-11 12:43 | MHC.CARE ---
Patient accepted to: [facility] [place] [address] [employer], [place] [phone] wants call with ETA Accepting MD: Mariam Melgar Time: NEHEMIAH CARE Team will have Section 12A in chart CAIN stanton
--- NOTE | 2023-10-11 14:04 | MHC.CARE ---
Pepito from [facility] updated with ambulance ETA
[2023-10-11 14:14] VITALS: RESP 16
== END 2023-10-11 17:42 | disposition skilled nursing facility (03) ==
PROVIDERS: Emergency Provider Student in an Organized Health Care Education/Training Program
DX: F33.1 Major depressive disorder, recurrent, moderate (principal); R45.851 Suicidal ideations; T40.1X1A Poisoning by heroin, accidental (unintentional), initial encounter; Y92.9 Unspecified place or not applicable; Z11.52 Encounter for screening for COVID-19; Z20.822 Contact with and (suspected) exposure to COVID-19; Z79.899 Other long term (current) drug therapy; Z87.891 Personal history of nicotine dependence
CPT/HCPCS: 80053; 80307; 81003; 85025; 87635; 99284; S9485

== ENCOUNTER 2023-11-22 01:00 | Emergency (ER) | payer OTHER, SELFPAY ==
[2023-11-22 01:05] VITALS: BP 118/78; PULSE 82; RESP 18; TEMP 36.8; O2SAT 97; BMI 35.5
--- NOTE | 2023-11-22 01:28 | ED.PSYCH ---
HPI - Psych General Chief Complaint: Psychiatric Symptoms Stated Complaint: SI Time Seen by Provider: 11/22/23 01:28 Source: patient Mode of arrival: ambulatory Limitations: no limitations History of Present Illness HPI Narrative: 43-year-old male with a history of heroin use disorder, cocaine use disorder, depression, anxiety, ADD who presents emergency department for evaluation of suicidal ideation with a plan. Patient states that he has been in the dual diagnosis program in [facility] for 2 months and was released yesterday. He states that when he got out of the program, he relapsed in use a large amount of inject heroin and injected cocaine . He states that this made him feel suicidal and he was thinking of killing himself by overdosing on heroin and cocaine, therefore he came to the emergency department for evaluation. The patient states that while he was in the dual diagnosis program he developed an abscess to his left hand and required surgery at [facility]. States his hand feels significantly better. He denied fever, chills, nausea, vomiting, chest pain, shortness of breath. Patient states that he was being maintained on methadone while he was in the dual diagnosis program. Patient was hospitalized here on the psychiatric service from 08/09/2023 until 08/23/2023 and diagnosed with major depression, opiate use disorder, severe, on maintenance therapy and thrombocytopenia. Related Data Home Medications Medication Instructions Recorded Confirmed methadone 10 mg/5 mL oral solution 170 mg PO DAILY 02/12/23 10/11/23 bupropion HCl 300 mg 24 hr tablet, 300 mg PO DAILY 09/20/23 10/11/23 extended release escitalopram oxalate 20 mg tablet 20 mg PO DAILY 09/20/23 10/11/23 gabapentin 600 mg tablet 600 mg PO TID 09/20/23 10/11/23 levetiracetam 500 mg tablet 500 mg PO BID 09/20/23 10/11/23 nicotine (polacrilex) 4 mg gum 4 mg PO Q2H PRN Nicotine Cravings 09/20/23 10/11/23 propranolol 20 mg tablet 20 mg PO BID 09/20/23 10/11/23 quetiapine 50 mg tablet 50 mg PO BEDTIME PRN Anxiety 09/20/23 10/11/23 dextroamphetamine-amphetamine 20 1 tab PO BID 10/11/23 10/11/23 mg tablet Allergies Allergy/AdvReac Type Severity Reaction Status Date / Time capsaicin AdvReac Severe Burning Verified 11/22/23 01:04 sensation Review of Systems Review of Systems: Yes all other systems are reviewed and are negative [facility] Past Medical History [facility] Narrative: Past medical history: Depression, anxiety, ADHD, heroin use disorder, cocaine use disorder. Social history Patient denies tobacco and alcohol use. He did admit to injecting heroin and cocaine yesterday, multiple times Medical History Drug overdose Acute hypokalemia Syncopal episodes ADHD Opioid use disorder, severe, on maintenance therapy Social History Social History Household Members: None Housing: Homeless Do you presently have visiting nurse or other home services: No Alcohol intake: current Alcohol intake frequency: 3 or more drinks per day Alcohol type: hard liquor Comment: arie Patient Tobacco Use Status: Former Tobacco user Quit Date: 3 years ago Tobacco use type: Cigarette Years Smoked: 15 e-Cigarette/Vaping Use: Never Used Second Hand Smoke Exposure: No Substance Use Type: Heroin Advance Directives: No Advance Directives Information Provided: No service: No Current occupational status: unemployed Sexual orientation: Straight/Heterosexual Physical Exam Vital Signs: Vital Signs: Last Vital Signs Temp 98.2 F 11/22/23 01:05 Pulse 82 11/22/23 01:05 Resp 18 11/22/23 01:05 BP 118/78 11/22/23 01:05 Pulse Ox 97 11/22/23 01:05 O2 Del Method Room Air 11/22/23 01:05 BMI result Body Mass Index 35.5 Vital signs were normal Exam General: Awake, alert in no distress Head: Normocephalic, atraumatic EENT: PERRL, Lids normal, sclera normal, conjunctiva normal, nose normal , ears normal, throat without erythema or exudates Neck: Supple, no adenopathy Lung: breath sounds symmetric, no wheezing, rales or rhonchi Chest: symmetric movement, nontender Heart: regular rate and rhythm, normal S1, S2 no murmurs or rubs Abdomen: soft, non-tender, nondistended, normal bowel sounds Back: no vertebral tenderness, no CVAT Extremities: no deformities, moves all extremities symmetrically Skin: Multiple injection sites noted on his left arm, no evidence of erythema or increased warmth. Neuro: Awake, alert, oriented, normal speech, cranial nerves intact, moves all extremities symmetrically Psych: Pleasant, cooperative Medical Decision Making Medical Decision Making MDM Narrative: 43-year-old male with a history of heroin use disorder, cocaine use disorder, depression, anxiety, ADD who presents emergency department for evaluation of suicidal ideation with a plan. Patient was released from dual diagnosis program yesterday and states he relapsed and use injection heroin and cocaine multiple times which then made him feel suicidal with a plan to overdose on drugs. Patient's vital signs were normal. Physical examination did reveal multiple injections sites to his left arm but no evidence for cellulitis or an abscess at this time. Following evaluation was ordered: CBC, CMP, COVID-19, influenza, drug screen urine, ethanol level, lithium level. Following medications were ordered for the patient: Seroquel 50 mg at bedtime as needed for insomnia 01:48 Start physician observation At the end of my shift, the patient's laboratory evaluation is pending. Therefore the patient's care was turned over to my colleague, Dr. Arleth Bains. The patient will remain in the emergency department Behavioral Health Unit until he can be medically cleared, evaluated by care team and a disposition determined Differential Diagnosis Differential Diagnoses: The differential diagnosis associated with the presentation includes Differential diagnosis includes was not limited to depression, anxiety, heroin use disorder, cocaine use disorder, suicidal ideation, electrolyte abnormality, anemia Admission/Observation Consideration of admission/observation: Escalation of care including admission/observation considered External Record Review External record reviewed: Inpatient record Discharge Plan Discharge Clinical Impression: Suicide ideation, Heroin use disorder, severe, Cocaine use disorder Patient Disposition: Still a Patient Prescriptions: No Action gabapentin 600 mg tablet 600 mg PO TID levetiracetam 500 mg tablet 500 mg PO BID nicotine (polacrilex) 4 mg gum 4 mg PO Q2H PRN (Reason: Nicotine Cravings) propranolol 20 mg tablet 20 mg PO BID escitalopram oxalate 20 mg tablet 20 mg PO DAILY bupropion HCl 300 mg tablet extended release 24 hr 300 mg PO DAILY quetiapine 50 mg tablet 50 mg PO BEDTIME PRN (Reason: Anxiety) methadone 10 mg/5 mL Solution 170 mg PO DAILY Patient Comments: Dose confirmed by HIT[facility] 08/03/23 Rx Instructions: Dose verified from [employer] phone # [phone]. Dose verified by [facility] dextroamphetamine-amphetamine 20 mg tablet 1 tab PO BID
[2023-11-22] MEDS: QUEtiapine Fumarate 50 MG TABLET PO (01:57)
--- NOTE | 2023-11-22 02:02 | PC.NURSE ---
patient self presents reporting dc today (or yesterday?) from [facility] dual dx program, reports relapse w substances, used heroin and cocaine iv today, presents with dilated pupils but attentive, responding appropriately to questions, states current w medications and newly ordered zyprexa (in am i believe) client states meds are at [facility]
[2023-11-22 02:41] LABS: COVID-19 Test Negative (Negative); IDNOW Serial# 152EDE1D
[2023-11-22 02:43] LABS: IDNOW Serial# 08D9AD1C; Influenza A Negative (Negative); Influenza B2 Negative (Negative)
[2023-11-22 04:16] LABS: Basophils Percent Auto 0.3 % (0-2); Eosinophils Absolute Auto 0.2 X10*3/uL (0.0-0.4); Eosinophils Percent Auto 1.6 % (0-4); Hemoglobin 14.2 g/dl (14.0-18.0); Imm Gran Abs Auto 0.14 X10*3/uL (0.00-0.03); Imm Gran Pct Auto 1.3 % (0.0-0.4); Lymphocytes Absolute Auto 2.5 X10*3/uL (1.2-4.9); Lymphocytes Percent Auto 23.4 % (20-40); MANUAL DIFF FLAG NO; Mean Corpuscular HGB Conc 34.6 g/dl (31.0-36.0); Mean Corpuscular Hemoglobin 29.6 pg (27.0-33.0); Mean Corpuscular Volume 85.4 fL (80.0-98.0); Monocytes Absolute Auto 0.6 X10*3/uL (0.1-1.2); Monocytes Percent Auto 5.4 % (2-11); Neutrophils Absolute Auto 7.3 x10*3/uL (2.0-8.3); Platelet Count 157 X10*3/uL (160-400); White Blood Count 10.7 X10*3/uL (4.8-10.8)
[2023-11-22 04:35] LABS: Alanine Aminotransferase 24 U/L (0-40); Albumin Level 4.1 g/dL (3.5-5.0); Alkaline Phosphatase 77 U/L (39-117); Anion Gap 15 (12-20); Aspartate Amino Transferase 27 U/L (5-37); Bilirubin Total 0.4 mg/dL (0.0-1.0); Blood Urea Nitrogen 13 mg/dL (9-16); Calcium 9.6 mg/dL (8.4-10.2); Carbon Dioxide 24 mmol/L (22-29); Chloride 103 mmol/L (96-108); Creatinine Clr Calc Pharmacy 131.4; Estimated Glomerular Filt Rate > 60; Ethanol < 10 mg/dL; Glucose Random 112 mg/dL (60-115); Potassium 4.3 mmol/L (3.3-5.1); Sodium 138 mmol/L (135-145); Total Protein 8.1 g/dL (6.5-8.0)
[2023-11-22 04:40] LABS: Lithium < 0.10 mmol/L (0.60-1.20)
[2023-11-22 09:11] LABS: Appearance Urine Clear; Color Urine Dark Yellow; Glucose Urine UA Negative (Negative); Leukocyte Esterase Urine Negative (Negative); Nitrite Urine Negative (Negative); Specific Gravity - Urine >= 1.030 (1.005-1.025); Urine Blood Negative (Negative); Urine Ketones Negative (Negative); Urine Protein Negative (Neg-Trace)
[2023-11-22 09:16] LABS: Amphetamine Screen Urine POSITIVE (Not Detect); Barbiturates, Urine Not Detected (Not Detect); Benzodiazepines Screen Urine Not Detected (Not Detect); Cannabinoid Screen Urine Not Detected (Not Detect); Cocaine Screen Urine POSITIVE (Not Detect); Fentanyl, urine POSITIVE (Not Detect); Opiate Screen Urine POSITIVE (Not Detect); Phencyclidine Screen Urine Not Detected (Not Detect)
--- NOTE | 2023-11-22 09:50 | HE.PHANOTE ---
RE: METHADONE VERIFICATION Received dose verification via fax on 11/22/23 from methadone clinic at [facility] [phone] by Cheyenne BARLOW. Last methadone dose of 170 mg was given on 11/21/2023 @1000.
[2023-11-22] MEDS: Gabapentin 600 MG TABLET PO ×3 (10:17→19:39)
[2023-11-22] MEDS: levETIRAcetam 500 MG TABLET PO ×2 (10:17→19:39)
[2023-11-22] MEDS: Lithium Carbonate ER 300 MG TABLET.ER PO (10:17)
[2023-11-22] MEDS: buPROPion HCl XL 300 MG TAB.ER.24H PO (10:17)
[2023-11-22] MEDS: Escitalopram Oxalate 20 MG TABLET PO (10:17)
[2023-11-22] MEDS: Propranolol HCL 20 MG TABLET PO ×2 (10:17→19:39)
[2023-11-22] MEDS: methADONE HCl 20 MG/2 ML ORAL.CONC 170 MG PO (10:17)
[2023-11-22] MEDS: Amphetamine Mixed Salts 20 MG TABLET PO (13:30)
--- NOTE | 2023-11-22 15:23 | PHA.MEDREC ---
Pharmacy Consult ? Medication Reconciliation Pharmacy has reviewed the medication reconciliation completed by Jazmyn. Re Li, JericaD
--- NOTE | 2023-11-22 15:36 | MHC.CARE ---
RAD Team conducted a statewide dual dx bed search for this individual. Pt was accepted to [facility] @[id number] for ETA NEHEMIAH but by 7pm would be preferable. The accepting provider is Dr. Melgar. Address is [address] [place] [id number]. Pod RN Cheyenne was notified of acceptance and will work on transport and documentation. CARE Team will work on Sect 12. No nurse to nurse is required.
--- NOTE | 2023-11-22 15:48 | MHC.CARE ---
RAD Team confirmed tiff/ Angus @[facility] that the pt is accepted to [facility]. Address is confirmed [address] [place] [id number].
--- NOTE | 2023-11-22 17:36 | PC.NURSE ---
Norbert has been in his room resting most of this shift. Pleasant when engaged, adherent with all scheduled medications. Methadone dose verified with [facility] RN Elisa. 170mg given on 11/21. Appetite is good. No behavioral concerns.
[2023-11-22 17:38] VITALS: RESP 18
--- NOTE | 2023-11-22 19:21 | PC.NURSE ---
patient appears in no distress, appears relaxed in milieu, asked for hs meds early which t/w told would give fransisco. patient to transfer back [facility] unit client was dc from yesterday
[2023-11-22 19:38] VITALS: BP 133/84; PULSE 77; RESP 18; TEMP 36.8; O2SAT 97
[2023-11-22] MEDS: OLANZapine 10 MG TABLET PO (19:40)
== END 2023-11-22 19:46 ==
PROVIDERS: Emergency Medicine Emergency Medical Services; Emergency Provider Emergency Medicine
DX: F11.19 Opioid abuse with unspecified opioid-induced disorder (principal); F14.14 Cocaine abuse with cocaine-induced mood disorder; R45.851 Suicidal ideations; F33.1 Major depressive disorder, recurrent, moderate; F41.9 Anxiety disorder, unspecified; Z79.899 Other long term (current) drug therapy; Z11.52 Encounter for screening for COVID-19
CPT/HCPCS: 80053; 80178; 80307; 81003; 85025; 87502; 87635; 99285; S9485

== ENCOUNTER 2024-01-09 15:44 | Inpatient (IN) | payer OTHER, SELFPAY ==
[2024-01-09 15:58] VITALS: BP 124/73; PULSE 87; RESP 16; TEMP 36.1; O2SAT 95; BMI 32.3
--- NOTE | 2024-01-09 16:21 | ED_ITS ---
HPI - Psych General Chief Complaint: Psychiatric Symptoms Stated Complaint: SI Time Seen by Provider: 01/09/24 16:04 Source: patient Mode of arrival: ambulatory Limitations: no limitations History of Present Illness HPI Narrative: Patient comes to the emergency room complaining of suicidal ideation. Patient states that he uses drugs and recently relapsed. Patient went today to his methadone clinic as usual to get his methadone, said that he feels suicidal and therefore they sent him to the emergency room. Patient denies HI Related Data Home Medications Medication Instructions Recorded Confirmed methadone 10 mg/5 mL oral solution 170 mg PO DAILY 02/12/23 11/22/23 bupropion HCl 300 mg 24 hr tablet, 300 mg PO DAILY 09/20/23 11/22/23 extended release escitalopram oxalate 20 mg tablet 20 mg PO DAILY 09/20/23 11/22/23 gabapentin 600 mg tablet 600 mg PO TID 09/20/23 11/22/23 levetiracetam 500 mg tablet 500 mg PO BID 09/20/23 11/22/23 nicotine (polacrilex) 4 mg gum 4 mg PO Q2H PRN Nicotine Cravings 09/20/23 11/22/23 propranolol 20 mg tablet 20 mg PO BID 09/20/23 11/22/23 dextroamphetamine-amphetamine 20 1 tab PO BID 10/11/23 11/22/23 mg tablet aripiprazole 20 mg tablet 20 mg PO BEDTIME PRN Insomnia 11/22/23 11/22/23 lithium carbonate 300 mg 300 mg PO DAILY 11/22/23 11/22/23 tablet,extended release olanzapine 10 mg tablet 10 mg PO BEDTIME 11/22/23 11/22/23 Allergies Allergy/AdvReac Type Severity Reaction Status Date / Time capsaicin AdvReac Severe Burning Verified 11/22/23 01:04 sensation Review of Systems Review of Systems: Constitutional : No Weight loss, No Fever, No Chills, No Night Sweats, No Fatigue, No Malaise ENT/Mouth : No Hearing loss, No Ear Pain, No Nasal Congestion, No Sinus Pain, No Hoarseness, No sore throat, No Rhinorrhea, No Swallowing Difficulty Eyes: No Eye Pain, No Swelling, No Redness, No Foreign Body, No Discharge, No Vision Changes Cardiovascular : No Chest Pain, No SOB, No Dyspnea on Exertion, No Orthopnea, No Edema, No Palpitations Respiratory : No Cough, No Sputum, No Wheezing, No Smoke Exposure, No Dyspnea Gastrointestinal : No Nausea, No Vomiting, No Diarrhea, No Constipation, No abdominal Pain, No Hematochezia, No Melena Genitourinary : no irregular bleeding, No Dysuria, No Urinary Frequency, No Hematuria, No Urinary Incontinence, No Urgency, No Flank Pain, No Urinary Flow Changes, No Hesitancy Musculoskeletal : No joint pain, No Myalgias, No Joint Swelling Skin : No Skin Lesions, No rash Neuro : No Weakness, No Numbness, No Paresthesias, No Loss of Consciousness, No Dizziness, No Headache Psych : Complaining of depression, SI, no HI, relapse of substance abuse Heme/Lymph: No Bruising, No Bleeding,No Lymphadenopathy Endocrine : No Polyuria, No Polydipsia, No Temperature Intolerance PMFSH Past Medical History Medical History (Updated 01/09/24 @ 16:29 by Jaida Soliz MD) Cocaine abuse ETOH abuse Thrombocytopenia Drug overdose Acute hypokalemia Syncopal episodes ADHD Opioid use disorder, severe, on maintenance therapy Social History Social History Household Members: None Housing: Homeless Do you presently have visiting nurse or other home services: No Alcohol intake: current Alcohol intake frequency: does not drink Alcohol type: hard liquor Comment: arie Patient Tobacco Use Status: Former Tobacco user Quit Date: 3 years ago Tobacco use type: Cigarette Years Smoked: 15 Smoked in Last 30 Days: No e-Cigarette/Vaping Use: Never Used Second Hand Smoke Exposure: No Use of substances other than those prescribed or required for medical reasons: Yes Substance Use Type: Crack/Cocaine and Heroin service: No Current occupational status: unemployed Sexual orientation: Straight/Heterosexual Physical Exam Vital Signs: Vital Signs: Last Vital Signs Temp 97 F 01/09/24 15:58 Pulse 87 01/09/24 15:58 Resp 16 01/09/24 15:58 BP 124/73 01/09/24 15:58 Pulse Ox 95 01/09/24 15:58 O2 Del Method Room Air 01/09/24 15:58 BMI result Body Mass Index 32.3 Const: Other: Appearance: Alert. Oriented X3. No acute distress. Eyes: Pupils equal, round and reactive to light. ENT: Pharynx normal. Neck: Normal inspection. Neck supple. No lymph nodes noted. No crepitus CVS: Normal heart rate and rhythm. Pulses normal. Normal S1 and S2 Respiratory: No respiratory distress. Breath sounds normal. No Wheezing. No rales Abdomen: Soft and nontender. No rigidity. No distention. Skin: Skin warm and dry. Normal skin color. Normal skin turgor. Extremities: No lower extremity edema. No Lacerations. No Rash Neuro: Oriented X 3. No motor deficit. No sensory deficit. Moving all extremities. No slurred speech. CN 2 through 12 grossly intact Psych: calm, cooperative, normal affect Course Course Course Narrative: - patient's labs pending -Care team consult pending -physician observation started at 16:25 Discharge Plan Discharge Clinical Impression: Suicidal ideation, Polysubstance abuse Patient Disposition: Still a Patient Prescriptions: No Action gabapentin 600 mg tablet 600 mg PO TID levetiracetam 500 mg tablet 500 mg PO BID nicotine (polacrilex) 4 mg gum 4 mg PO Q2H PRN (Reason: Nicotine Cravings) propranolol 20 mg tablet 20 mg PO BID escitalopram oxalate 20 mg tablet 20 mg PO DAILY bupropion HCl 300 mg tablet extended release 24 hr 300 mg PO DAILY olanzapine 10 mg tablet 10 mg PO BEDTIME aripiprazole 20 mg tablet 20 mg PO BEDTIME PRN (Reason: Insomnia) lithium carbonate 300 mg tablet extended release 300 mg PO DAILY methadone 10 mg/5 mL Solution 170 mg PO DAILY Patient Comments: Dose confirmed with [facility], last dose given 170mg 11/21/23. dextroamphetamine-amphetamine 20 mg tablet 1 tab PO BID Interventions: Gooding-Suicide Risk Severity Scale Last Done: 01/09/24 16:07
--- NOTE | 2024-01-09 17:02 | PC.NURSE ---
pt a&o x4, calm, and cooperative. pt comes from home for SI. pt sts he has recently relapsed after being 2.5-3 months sober. pt sts he did about 1g heroin and 0.5g crack while trying to OD yesterday. pt sts he is on methadone and last dosed this AM at [facility]. pt also comes with prescription medications, locked up with pt belongings in locker #1. pt changed over to hospital attire, labs obtained. pt currently resting quietly in room, rr even/unlabored. plan of care ongoing.
[2024-01-09 17:12] LABS: Basophils Percent Auto 0.3 % (0-2); Eosinophils Absolute Auto 0.1 X10*3/uL (0.0-0.4); Eosinophils Percent Auto 1.8 % (0-4); Hematocrit 39.5 % (42.0-52.0); Imm Gran Abs Auto 0.04 X10*3/uL (0.00-0.03); Imm Gran Pct Auto 0.5 % (0.0-0.4); MANUAL DIFF FLAG SCAN; PLT CLUMP 1; Red Cell Distribution Width 13.4 % (11.0-16.0); SCAN SMEAR FLAG 1
[2024-01-09 17:14] LABS: Hemoglobin 13.5 g/dl (14.0-18.0); Lymphocytes Absolute Auto 2.5 X10*3/uL (1.2-4.9); Lymphocytes Percent Auto 33.1 % (20-40); Mean Corpuscular HGB Conc 34.2 g/dl (31.0-36.0); Mean Corpuscular Hemoglobin 29.3 pg (27.0-33.0); Mean Corpuscular Volume 85.7 fL (80.0-98.0); Monocytes Absolute Auto 0.8 X10*3/uL (0.1-1.2); Monocytes Percent Auto 10.8 % (2-11); Neutrophils Absolute Auto 4.1 x10*3/uL (2.0-8.3); Neutrophils Percent Auto 53.5 % (45-73); Red Blood Count 4.61 X10*6/uL (4.60-5.80)
[2024-01-09 17:19] LABS: Platelet Count 100 X10*3/uL (160-400); White Blood Count 7.6 X10*3/uL (4.8-10.8)
[2024-01-09 17:20] LABS: SLIDE REVIEW VERIFIED
[2024-01-09 17:49] LABS: Alanine Aminotransferase 30 U/L (0-40); Albumin Level 4.2 g/dL (3.5-5.0); Alkaline Phosphatase 71 U/L (39-117); Anion Gap 12 (12-20); Aspartate Amino Transferase 44 U/L (5-37); Bilirubin Direct 0.3 mg/dL (0.0-0.5); Bilirubin Total 0.6 mg/dL (0.0-1.0); Blood Urea Nitrogen 15 mg/dL (9-16); Calcium 9.6 mg/dL (8.4-10.2); Carbon Dioxide 26 mmol/L (22-29); Chloride 101 mmol/L (96-108); Creatinine Clr Calc Pharmacy 100.4; Estimated Glomerular Filt Rate > 60; Ethanol < 10 mg/dL; Glucose Random 161 mg/dL (60-115); Potassium 3.3 mmol/L (3.3-5.1); Sodium 136 mmol/L (135-145); Total Protein 8.1 g/dL (6.5-8.0)
--- NOTE | 2024-01-09 19:26 | PC.NURSE ---
patient appears to remain asleep at present respirations are even and unlabored patient appears in no distress.
[2024-01-09 23:11] VITALS: BP 122/65; PULSE 82; TEMP 36.3; O2SAT 96
--- NOTE | 2024-01-10 | ECG_ITS ---
Test Reason : med clear Blood Pressure : / mmHG Vent. Rate : 078 BPM Atrial Rate : 078 BPM P-R Int : 144 ms QRS Dur : 108 ms QT Int : 404 ms P-R-T Axes : 063 -26 049 degrees QTc Int : 460 ms Normal sinus rhythm Possible Left atrial enlargement Incomplete right bundle branch block Nonspecific T wave abnormality Prolonged QT Abnormal ECG When compared with ECG of 16-AUG-2023 11:58, QT has lengthened Incomplete right bundle branch block is present Referred By: Jaida Soliz Electronically Signed By:LYNETTE URBAN MD
--- NOTE | 2024-01-10 03:07 | PC.NURSE ---
Assumed care of pt at 0300. PT appears to be sleeping, respirations even and unlabored. Plan of care ongoing
[2024-01-10 03:45] VITALS: BP 118/70; PULSE 69; RESP 18; TEMP 36.9; O2SAT 98
[2024-01-10 03:49] LABS: Appearance Urine Clear; Color Urine Dark Yellow; Glucose Urine UA Negative (Negative); Leukocyte Esterase Urine Negative (Negative); Nitrite Urine Negative (Negative); PH 5.5 (5.0-9.0); Urine Blood Negative (Negative); Urine Ketones Negative (Negative); Urine Protein Negative (Neg-Trace)
[2024-01-10 03:56] LABS: Bacteria Urine None Seen (None Seen); RBC Urine 0-2 /HPF (0-2); Squamous Epithelial Cell Urine 0-2 /HPF (0-2); WBC Urine 0-5 /HPF (0-5)
[2024-01-10 04:01] LABS: Amphetamine Screen Urine POSITIVE (Not Detect); Barbiturates, Urine Not Detected (Not Detect); Benzodiazepines Screen Urine Not Detected (Not Detect); Cannabinoid Screen Urine Not Detected (Not Detect); Cocaine Screen Urine POSITIVE (Not Detect); Fentanyl, urine POSITIVE (Not Detect); Opiate Screen Urine POSITIVE (Not Detect); Phencyclidine Screen Urine Not Detected (Not Detect)
--- NOTE | 2024-01-10 08:08 | PHA.MEDREC ---
Pharmacy Consult ? Medication Reconciliation Pharmacy has REVIEWED the medication reconciliation DONE BY NURSING. CONFIRMED CHANGES WITH LEANNE IN PSYCH ED. ADDED CLONIDINE, HYDROXYZINE, AND SEROQUEL TO MED LIST...CHANGED OLANZAPINE TO 20 MG FROM 10 MG...CHANGED TIME ON DOSES OF ADDERALL PER PRESCRIBER APPROVAL. CHANGES MADE BEFORE MEDICATIONS WERE VERIFIED BY PHARMACY.
--- NOTE | 2024-01-10 08:20 | PC.NURSE ---
Assumed care of patient at 0700, patient ambulating around [facility] pod, offering no complaints to this RN, respirations even and unlabored, no apparent distress. Med rec reviewed with patient, fixed in chart and pharmacy updated. Patient reports Si without plan at this time. Awaiting CARE team aydin
[2024-01-10] MEDS: Gabapentin 600 MG TABLET PO ×3 (08:46→20:42)
[2024-01-10] MEDS: Lithium Carbonate ER 300 MG TABLET.ER PO (08:46)
[2024-01-10] MEDS: hydrOXYzine HCL 50 MG TABLET PO ×3 (08:46→20:41)
[2024-01-10] MEDS: levETIRAcetam 500 MG TABLET PO ×2 (08:46→20:41)
[2024-01-10] MEDS: Escitalopram Oxalate 20 MG TABLET PO (08:46)
[2024-01-10] MEDS: cloNIDine HCL 0.1 MG TABLET PO ×2 (08:46→20:42)
[2024-01-10] MEDS: Amphetamine Mixed Salts 20 MG TABLET PO ×2 (08:47→15:57)
[2024-01-10] MEDS: buPROPion HCl XL 300 MG TAB.ER.24H PO (08:47)
--- NOTE | 2024-01-10 09:38 | PC.NURSE ---
spoke with Delta RN at [facility] to verify last dose of Methadone, last does was 170mg yesterday 01/08 at 0825. verification form sent to pharmacy
--- NOTE | 2024-01-10 09:49 | HE.PHANOTE ---
RE METHADONE VERIFICATION LAST DOSE 170 MG GIVEN 01/09/24 @[facility] [phone]
[2024-01-10] MEDS: methADONE HCl 20 MG/2 ML ORAL.CONC 170 MG PO (10:17)
[2024-01-10 11:54] LABS: COVID-19 Test Negative (Negative); IDNOW Serial# 08D9AD1C
--- NOTE | 2024-01-10 12:56 | MHC.CARE ---
Rad Team completed a statewide dual bed search Pt. There are no beds available across the state. Facilities called were [facility], [facility], [facility] and [facility]. Bed search will resume tomorrow if needed.
[2024-01-10 14:00] VITALS: RESP 14
--- NOTE | 2024-01-10 15:32 | MHC.CARE ---
RAD Team faxed Norbert's referral to [facility] who initially had an e/o dual bed, however, filled the bed as the referral was being received. Will follow up tomorrow and continue dual bed search if deemed appropriate.
--- NOTE | 2024-01-10 19:12 | PC.NURSE ---
patient appears to remain at rest at present respirations are even and unlabored patient appears in no distress.
[2024-01-10 20:41] VITALS: BP 120/71; PULSE 71; RESP 17; TEMP 36.3; O2SAT 98
[2024-01-10] MEDS: ARIPiprazole 20 MG TABLET PO (20:42)
[2024-01-10] MEDS: OLANZapine 10 MG TABLET 20 MG PO (20:42)
[2024-01-10] MEDS: QUEtiapine Fumarate 100 MG TABLET PO (20:42)
--- NOTE | 2024-01-11 07:14 | PC.NURSE ---
Assumed care of patient at 0700, patient appears to be sleeping, respirations are even and unlabored, no apparent distress noted. Breakfast placed in patient's room. Continue plan of care for dual diagnosis bedsearch
[2024-01-11] MEDS: methADONE HCl 20 MG/2 ML ORAL.CONC 170 MG PO (08:35)
[2024-01-11] MEDS: levETIRAcetam 500 MG TABLET PO ×2 (08:35→20:43)
[2024-01-11] MEDS: hydrOXYzine HCL 50 MG TABLET PO ×3 (08:35→20:43)
[2024-01-11] MEDS: Gabapentin 600 MG TABLET PO ×3 (08:35→20:43)
[2024-01-11] MEDS: Lithium Carbonate ER 300 MG TABLET.ER PO (08:35)
[2024-01-11] MEDS: cloNIDine HCL 0.1 MG TABLET PO (08:35)
[2024-01-11] MEDS: Amphetamine Mixed Salts 20 MG TABLET PO (08:35)
[2024-01-11] MEDS: buPROPion HCl XL 300 MG TAB.ER.24H PO (08:35)
[2024-01-11] MEDS: Escitalopram Oxalate 20 MG TABLET PO (08:35)
[2024-01-11 09:33] VITALS: BP 119/63; PULSE 65; RESP 15; TEMP 36.2; O2SAT 95
[2024-01-11] MEDS: Promethazine HCL 25 MG TABLET PO ×2 (11:46→18:08)
--- NOTE | 2024-01-11 13:33 | ECG_ITS ---
Test Reason : qtc check Blood Pressure : / mmHG Vent. Rate : 071 BPM Atrial Rate : 071 BPM P-R Int : 158 ms QRS Dur : 106 ms QT Int : 414 ms P-R-T Axes : 063 -12 057 degrees QTc Int : 449 ms Normal sinus rhythm Normal ECG When compared with ECG of 10-JAN-2024 19:15, No significant change was found Referred By: Martin Loredo Electronically Signed By:LYNETTE URBAN MD
--- NOTE | 2024-01-11 14:22 | HO.PSYADMNOT ---
HPI Date of Service: 01/11/24 Chief Complaint: SI substance abuse Sources of Information: patient interviewed, chart reviewed and crisis/core team assessment reviewed HPI Subjective Notes: Lira Warning and Conditional Voluntary Narrative: Patient is a 43 year old male with hx of MDD, cocaine use d/o and opioid use d/o who presented to ER d/t suicidal ideation with plan to overdose on heroin secondary to increased depressive symptoms. Per crisis report, pt presented to ER secondary to reporting SI with plan to OD on heroin while at [facility] to get his methadone. Pt reported things had been going well for him since [facility] and had been sober for 2.5 months but his depressive symptoms worsened and SI took over. During admission assessment, pt presents calm and cooperative. Pt reports feeling depressed and anxious ; pt stated, I relapsed a few days ago. I don't know why. I just wanted to use. I stayed sober because of the program, which was helpful. I didn't use since I got out of [facility] except for the past couple of days . Pt reports suicidal ideation with no plan. Pt stated, life is making me depressed. I'm living on the streets and bouncing from friend to friend. I want to go back to a program . pt denies HI/VH/AH. Past Psychiatric History: -[place] 08/24/22[place] [facility] [place] Hx of IPLOC at [facility] in 2020 due to SI. Reports hx of SA by cutting wrist. TSS: Oct 2021 LIZBETH Choudhary -Past meds: Vyvanse, Methadone, Wellbutrin, Clonidine, Gabapentin, Seroquel, Buspar, Lexapro, Propranolol, Atarax, Promethazine Medical Evaluation Reviewed: Yes [facility] Medical History (Updated 01/09/24 @ 16:29 by Jaida Soliz MD) Cocaine abuse ETOH abuse Thrombocytopenia Drug overdose Acute hypokalemia Syncopal episodes ADHD Opioid use disorder, severe, on maintenance therapy Family History: Pt denies Social History: -Currently homeless Born and raised in [place], by his mother. Two sisters Recent move from [place], and has been homeless since coming to this area Hx of incarceration for 12 years Denies current legal issues/probation/parole single, unemployed, 1 daughter(17 y/o) Substance History: pt reports using 1g of heroin and cocaine daily prior to admission. Trauma History: -Per chart, hx of PTSD from incarceration. Diagnostics Vital Signs (24Hr): Vital Signs - 24 hr 01/10/24 20:41 01/11/24 09:33 Temperature 97.4 F 97.2 F Pulse Rate 71 65 Respiratory Rate 17 15 Blood Pressure 120/71 119/63 Pulse Oximetry 98 95 Oxygen Delivery Method Room Air Room Air BMI result Body Mass Index 32.3 Labs 01/09/24 16:56 01/09/24 16:56 Labs: Laboratory Results - last 48 hr 01/09/24 01/10/24 01/10/24 16:56 03:37 11:31 WBC 7.6 RBC 4.61 Hgb 13.5 L Hct 39.5 L MCV 85.7 MCH 29.3 MCHC 34.2 RDW 13.4 Plt Count 100 L D MPV 11.0 Immature Gran % (Auto) 0.5 H Neut % (Auto) 53.5 Lymph % (Auto) 33.1 Hood % (Auto) 10.8 Eos % (Auto) 1.8 Baso % (Auto) 0.3 Lymph # (Auto) 2.5 Hood # (Auto) 0.8 Eos # (Auto) 0.1 Baso # (Auto) 0.0 Abs Immat Gran (auto) 0.04 H Absolute Neuts (auto) 4.1 Absolute Nucleated RBC 0.000 Nucleated RBC % (auto) 0.0 Smear Tech's Comments VERIFIED Sodium 136 Potassium 3.3 D Chloride 101 Carbon Dioxide 26 Anion Gap 12 BUN 15 Creatinine 1.01 Estim Creat Clear Calc 100.4 Estimated GFR > 60 Random Glucose 161 H Calcium 9.6 Total Bilirubin 0.6 Direct Bilirubin 0.3 AST 44 H ALT 30 Alkaline Phosphatase 71 Total Protein 8.1 H Albumin 4.2 Urine Color Dark Yellow Urine Appearance Clear Urine pH 5.5 Ur Specific [place] 1.020 Urine Protein Negative Urine Glucose (UA) Negative Urine Ketones Negative Urine Blood Negative Urine Nitrite Negative Ur Leukocyte Esterase Negative Urine RBC 0-2 Urine WBC 0-5 Ur Squamous Epith Cells 0-2 Urine Bacteria None Seen Hyaline Casts 3-5 Urine Opiates Screen POSITIVE H Urine Fentanyl Screen POSITIVE H Ur Barbiturates Screen Not Detected Ur Phencyclidine Scrn Not Detected Ur Amphetamines Screen POSITIVE H U Benzodiazepines Scrn Not Detected Urine Cocaine Screen POSITIVE H U Marijuana (THC) Screen Not Detected Ethyl Alcohol < 10 COVID-19 (HONG) Negative COVID-19 Clin Com See Note Meds/Allergies Meds Home Medications Medication Instructions Recorded Confirmed Type methadone 10 mg/5 mL oral solution 170 mg PO DAILY 02/12/23 01/10/24 History escitalopram oxalate 20 mg tablet 20 mg PO DAILY 09/20/23 01/10/24 History gabapentin 600 mg tablet 600 mg PO TID 09/20/23 01/09/24 History levetiracetam 500 mg tablet 500 mg PO BID 09/20/23 01/09/24 History dextroamphetamine-amphetamine 20 1 tab PO BID@0900,1500 10/11/23 01/10/24 History mg tablet aripiprazole 20 mg tablet 20 mg PO BEDTIME Insomnia 11/22/23 01/09/24 History lithium carbonate 300 mg 300 mg PO DAILY 11/22/23 01/09/24 History tablet,extended release bupropion HCl 150 mg tablet,12 hr 150 mg PO BID 01/10/24 01/10/24 History sustained-release clonidine HCl 0.1 mg tablet 0.1 mg PO BID 01/10/24 01/10/24 History hydroxyzine pamoate 50 mg capsule 50 mg PO TID 01/10/24 01/10/24 History olanzapine 20 mg tablet 20 mg PO BEDTIME 01/10/24 01/10/24 History quetiapine 100 mg tablet 100 mg PO BEDTIME 01/10/24 01/10/24 History Allergies Allergies Allergy/AdvReac Type Severity Reaction Status Date / Time capsaicin AdvReac Severe Burning Verified 01/10/24 07:51 sensation Mental Status Exam Mental Status Exam Narrative: Pt is alert and oriented; behavior is cooperative and calm; dressed in casual attire; mood is described as depressed and anxious ; eye contact appropriate; Speech is normal rate, volume and prosody and not pressured; thought process is organized and goal directed; Thought content is on tx; otherwise pertinent to relevant topics and without any delusional content, paranoid ideations or grandiosity; denies HI/VH/AH. Pt reports suicidal ideation with no plan. Assessment & Plan Assessment & Plan (1) MDD (major depressive disorder), recurrent episode, moderate: Status: Acute Code(s): F33.1 - Major depressive disorder, recurrent, moderate (2) Opioid use disorder, severe, on maintenance therapy: Status: Acute Code(s): F11.20 - Opioid dependence, uncomplicated (3) Cocaine abuse: Status: Acute Code(s): F14.10 - Cocaine abuse, uncomplicated Plan Patient is a 43 year old male with hx of MDD, cocaine use d/o and opioid use d/o who presented to ER d/t suicidal ideation with plan to overdose on heroin secondary to increased depressive symptoms. Plan: CV 15 minute safety checks continue home medications referral to substance abuse program discharge planning Patient educated on: diagnosis, medication risk/benefits, substance abuse and therapeutic strategies Informed Consent: understands Reason for continued inpatient stay Substantial Risk for: harm to self and med/psych decompensation Statement Statement: I have reviewed the history and physical and performed a pertinent examination on my patient. No changes have occurred unless specified. If the History and Physical was not performed prior to admission, the Hospitalist's service will be consulted for completing the admission physical. Time Spent With Patient Time: Total time managing care of this patient today _60___ minutes.
[2024-01-11 15:11] VITALS: BP 120/65; PULSE 79; RESP 17; O2SAT 97
--- NOTE | 2024-01-11 15:35 | PC.ADMIT ---
Pt admitted [place] [facility] [place] with a diagnosis of Major depressive disorder, - Opioid use disorder, Other stimulant dependence, Cocaine use disorder. Pt calm and cooperative with admission process. Pt reports that he attempted to overdose on heroin, states that he feels good and bad about waking up. Pt endorses SI with no plan, states he feels safe on the unit and will contact staff if feeling unsafe. Pt states he has been using heroin and cocaine, denies alcohol and nicotine use. Pt currently on methadone maintence. 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 Pt declined to sign releases on information and declined the flu vaccine. 15 minute checks initiated.
[2024-01-11 20:35] VITALS: RESP 18
[2024-01-11] MEDS: ARIPiprazole 20 MG TABLET PO (20:43)
[2024-01-11] MEDS: OLANZapine 10 MG TABLET 20 MG PO (20:43)
--- NOTE | 2024-01-11 22:12 | PC.NURSE ---
Pt declined scheduled HS clonidine, as he declined to have vitals taken.
[2024-01-12 00:25] VITALS: RESP 16
[2024-01-12 04:52] VITALS: RESP 16
[2024-01-12 08:15] VITALS: BP 127/71; PULSE 69; RESP 16; TEMP 36.3; O2SAT 99
[2024-01-12] MEDS: Promethazine HCL 25 MG TABLET PO ×3 (08:19→20:43)
[2024-01-12] MEDS: cloNIDine HCL 0.1 MG TABLET PO ×2 (08:20→20:44)
[2024-01-12] MEDS: Gabapentin 600 MG TABLET PO ×3 (08:20→20:44)
[2024-01-12] MEDS: Lithium Carbonate ER 300 MG TABLET.ER PO (08:20)
[2024-01-12] MEDS: Escitalopram Oxalate 20 MG TABLET PO (08:20)
[2024-01-12] MEDS: hydrOXYzine HCL 50 MG TABLET PO ×3 (08:21→20:44)
[2024-01-12] MEDS: Dextroamphetamine/Amphetamine XR 10 MG CAP.ER.24H 20 MG PO ×2 (08:21→12:13)
[2024-01-12] MEDS: buPROPion HCl XL 300 MG TAB.ER.24H PO (08:21)
[2024-01-12] MEDS: levETIRAcetam 500 MG TABLET PO ×2 (08:21→20:44)
[2024-01-12] MEDS: methADONE HCl 20 MG/2 ML ORAL.CONC 170 MG PO (08:22)
[2024-01-12 12:00] VITALS: RESP 16
[2024-01-12 16:00] VITALS: RESP 16
[2024-01-12 20:44] VITALS: BP 135/86; PULSE 77; RESP 16; TEMP 36.6; O2SAT 97
[2024-01-12] MEDS: OLANZapine 10 MG TABLET 20 MG PO (20:44)
[2024-01-12] MEDS: ARIPiprazole 20 MG TABLET PO (20:44)
[2024-01-13 00:43] VITALS: RESP 18
[2024-01-13 04:12] VITALS: RESP 16
[2024-01-13 10:00] VITALS: BP 145/88; PULSE 65; RESP 15; TEMP 36.4; O2SAT 98
[2024-01-13] MEDS: methADONE HCl 20 MG/2 ML ORAL.CONC 170 MG PO (10:02)
[2024-01-13] MEDS: Dextroamphetamine/Amphetamine XR 10 MG CAP.ER.24H 20 MG PO ×2 (10:03→13:06)
[2024-01-13] MEDS: Lithium Carbonate ER 300 MG TABLET.ER PO (10:03)
[2024-01-13] MEDS: hydrOXYzine HCL 50 MG TABLET PO ×3 (10:03→21:00)
[2024-01-13] MEDS: cloNIDine HCL 0.1 MG TABLET PO ×2 (10:03→21:00)
[2024-01-13] MEDS: Gabapentin 600 MG TABLET PO ×3 (10:03→21:14)
[2024-01-13] MEDS: buPROPion HCl XL 300 MG TAB.ER.24H PO (10:03)
[2024-01-13] MEDS: Escitalopram Oxalate 20 MG TABLET PO (10:04)
[2024-01-13] MEDS: Promethazine HCL 25 MG TABLET PO ×2 (13:10→17:49)
--- NOTE | 2024-01-13 20:14 | HO.PSYCHPN ---
Subjective Subjective Date of Service: 01/12/24 Reason For Visit: SI substance abuse Subjective Notes: Conditional Voluntary Interim History: Pt slept through the night. He states I'm good, no need to talk. He denies SI/HI/VH/AH. taking medications as prescribed. Review of Systems Review of Systems Constitutional : No Weight loss, No Fever, No Chills, No Night Sweats, No Fatigue, No Malaise ENT/Mouth : No Hearing loss, No Ear Pain, No Nasal Congestion, No Sinus Pain, No Hoarseness, No sore throat, No Rhinorrhea, No Swallowing Difficulty Eyes: No Eye Pain, No Swelling, No Redness, No Foreign Body, No Discharge, No Vision Changes Cardiovascular : No Chest Pain, No SOB, No Dyspnea on Exertion, No Orthopnea, No Edema, No Palpitations Respiratory : No Cough, No Sputum, No Wheezing, No Smoke Exposure, No Dyspnea Gastrointestinal : No Nausea, No Vomiting, No Diarrhea, No Constipation, No abdominal Pain, No Hematochezia, No Melena Genitourinary : no irregular bleeding, No Dysuria, No Urinary Frequency, No Hematuria, No Urinary Incontinence, No Urgency, No Flank Pain, No Urinary Flow Changes, No Hesitancy Musculoskeletal : No joint pain, No Myalgias, No Joint Swelling Skin : No Skin Lesions, No rash Neuro : No Weakness, No Numbness, No Paresthesias, No Loss of Consciousness, No Dizziness, No Headache Psych : Complaining of depression, SI, no HI, relapse of substance abuse Heme/Lymph: No Bruising, No Bleeding,No Lymphadenopathy Endocrine : No Polyuria, No Polydipsia, No Temperature Intolerance Constitutional: Reports as per HPI Eyes: Reports as per HPI Reports as per HPI Cardiovascular: Reports as per HPI Respiratory: Reports as per HPI Gastrointestinal: Reports as per HPI Genitourinary: Reports as per HPI Musculoskeletal: Reports as per HPI Skin/Breast: Reports as per HPI Reports as per HPI Psychiatric: Reports as per HPI Endocrine: Reports as per HPI Hematologic/Lymphatic: Reports as per HPI Allergic/Immunologic: Reports as per HPI Mental Status Exam Mental Status Exam Narrative: Pt is alert and oriented; behavior is cooperative and calm; dressed in casual attire; mood is described as depressed and anxious ; eye contact appropriate; Speech is normal rate, volume and prosody and not pressured; thought process is organized and goal directed; Thought content is on tx; otherwise pertinent to relevant topics and without any delusional content, paranoid ideations or grandiosity; denies HI/VH/AH. Pt reports suicidal ideation with no plan. Diagnostics Vital Signs (24Hr): Vital Signs - 24 hr 01/12/24 20:44 01/13/24 00:43 01/13/24 04:12 Temperature 97.8 F Pulse Rate 77 Respiratory Rate 16 18 16 Blood Pressure 135/86 Pulse Oximetry 97 Oxygen Delivery Method Room Air 01/13/24 10:00 Temperature 97.5 F Pulse Rate 65 Respiratory Rate 15 Blood Pressure 145/88 H Pulse Oximetry 98 Oxygen Delivery Method Room Air BMI result Body Mass Index 32.3 Labs 01/09/24 16:56 01/09/24 16:56 Medications Medications Current Medications Acetaminophen (Acetaminophen 325 Mg Tablet) 650 mg PO Q6H PRN PRN Reason: Headache/Pain Mild Scale (1-3) Al Hydroxide/Mg Hydroxide (Magnesium Hydrox/Alum Hydrox 30 Ml Oral.Susp) 30 ml PO Q6H PRN PRN Reason: Heartburn/Nausea Amphetamine/Dextroamphetamine (Dextroamphetamine/Amphetamine Xr 10 Mg Cap.Er.24h) 20 mg PO BID@0800,1300 [facility] Last Admin: 01/13/24 13:06 Dose: 20 mg Aripiprazole (Aripiprazole 20 Mg Tablet) 20 mg PO BEDTIME [facility] Last Admin: 01/12/24 20:44 Dose: 20 mg Bupropion HCl (Bupropion Hcl Xl 300 Mg Tab.Er.24h) 300 mg PO DAILY [facility] Last Admin: 01/13/24 10:03 Dose: 300 mg Clonidine HCl (Clonidine Hcl 0.1 Mg Tablet) 0.1 mg PO BID [facility]; Protocol Last Admin: 01/13/24 10:03 Dose: 0.1 mg Escitalopram Oxalate (Escitalopram Oxalate 20 Mg Tablet) 20 mg PO DAILY [facility] Last Admin: 01/13/24 10:04 Dose: 20 mg Gabapentin (Gabapentin 600 Mg Tablet) 600 mg PO TID [facility] Last Admin: 01/13/24 15:44 Dose: 600 mg Hydroxyzine HCl (Hydroxyzine Hcl 50 Mg Tablet) 50 mg PO TID [facility] Last Admin: 01/13/24 15:44 Dose: 50 mg Hydroxyzine HCl (Hydroxyzine Hcl 25 Mg Tablet) 25 mg PO Q6H PRN PRN Reason: Anxiety Levetiracetam (Levetiracetam 500 Mg Tablet) 500 mg PO BID [facility] Last Admin: 01/13/24 10:04 Dose: Not Given [place] Carbonate ([place] Carbonate Er 300 Mg Tablet.Er) 300 mg PO DAILY [facility] Last Admin: 01/13/24 10:03 Dose: 300 mg Magnesium Hydroxide (Milk Of Magnesia 30 Ml Oral.Susp) 30 ml PO DAILY PRN PRN Reason: Constipation Methadone HCl (Methadone Hcl 20 Mg/2 Ml Oral.Conc) 170 mg PO DAILY [facility] Last Admin: 01/13/24 10:02 Dose: 170 mg Olanzapine (Olanzapine 10 Mg Tablet) 20 mg PO BEDTIME [facility] Last Admin: 01/12/24 20:44 Dose: 20 mg Promethazine HCl (Promethazine Hcl 25 Mg Tablet) 25 mg PO TID PRN PRN Reason: Dyspepsia Last Admin: 01/13/24 17:49 Dose: 25 mg Trazodone HCl (Trazodone Hcl 50 Mg Tablet) 50 mg PO BEDTIME MRX1 PRN PRN Reason: Insomnia Allergies Allergies Allergy/AdvReac Type Severity Reaction Status Date / Time capsaicin AdvReac Severe Burning Verified 01/10/24 07:51 sensation Assessment & Plan Assessment & Plan (1) MDD (major depressive disorder), recurrent episode, moderate: Status: Acute Code(s): F33.1 - Major depressive disorder, recurrent, moderate (2) Opioid use disorder, severe, on maintenance therapy: Status: Acute Code(s): F11.20 - Opioid dependence, uncomplicated (3) Cocaine abuse: Status: Acute Code(s): F14.10 - Cocaine abuse, uncomplicated Plan Patient is a 43 year old male with hx of MDD, cocaine use d/o and opioid use d/o who presented to ER d/t suicidal ideation with plan to overdose on heroin secondary to increased depressive symptoms. Plan: 01/11 continue tx. Reason for continued inpatient stay Substantial Risk for: stable for discharge Time Spent With Patient Time: Total time managing care of this patient today ____ minutes.
--- NOTE | 2024-01-13 20:15 | HO.PSYCHPN ---
Subjective Subjective Date of Service: 01/13/24 Reason For Visit: SI substance abuse Interim History: Pt slept through the night. He states I'm good, no need to talk. He denies SI/HI/VH/AH. taking medications as prescribed. Review of Systems Review of Systems Constitutional : No Weight loss, No Fever, No Chills, No Night Sweats, No Fatigue, No Malaise ENT/Mouth : No Hearing loss, No Ear Pain, No Nasal Congestion, No Sinus Pain, No Hoarseness, No sore throat, No Rhinorrhea, No Swallowing Difficulty Eyes: No Eye Pain, No Swelling, No Redness, No Foreign Body, No Discharge, No Vision Changes Cardiovascular : No Chest Pain, No SOB, No Dyspnea on Exertion, No Orthopnea, No Edema, No Palpitations Respiratory : No Cough, No Sputum, No Wheezing, No Smoke Exposure, No Dyspnea Gastrointestinal : No Nausea, No Vomiting, No Diarrhea, No Constipation, No abdominal Pain, No Hematochezia, No Melena Genitourinary : no irregular bleeding, No Dysuria, No Urinary Frequency, No Hematuria, No Urinary Incontinence, No Urgency, No Flank Pain, No Urinary Flow Changes, No Hesitancy Musculoskeletal : No joint pain, No Myalgias, No Joint Swelling Skin : No Skin Lesions, No rash Neuro : No Weakness, No Numbness, No Paresthesias, No Loss of Consciousness, No Dizziness, No Headache Psych : Complaining of depression, SI, no HI, relapse of substance abuse Heme/Lymph: No Bruising, No Bleeding,No Lymphadenopathy Endocrine : No Polyuria, No Polydipsia, No Temperature Intolerance Constitutional: Reports as per HPI Eyes: Reports as per HPI Reports as per HPI Cardiovascular: Reports as per HPI Respiratory: Reports as per HPI Gastrointestinal: Reports as per HPI Genitourinary: Reports as per HPI Musculoskeletal: Reports as per HPI Skin/Breast: Reports as per HPI Reports as per HPI Psychiatric: Reports as per HPI Endocrine: Reports as per HPI Hematologic/Lymphatic: Reports as per HPI Allergic/Immunologic: Reports as per HPI Mental Status Exam Mental Status Exam Narrative: Pt is alert and oriented; behavior is cooperative and calm; dressed in casual attire; mood is described as depressed and anxious ; eye contact appropriate; Speech is normal rate, volume and prosody and not pressured; thought process is organized and goal directed; Thought content is on tx; otherwise pertinent to relevant topics and without any delusional content, paranoid ideations or grandiosity; denies HI/VH/AH. Pt reports suicidal ideation with no plan. Diagnostics Vital Signs (24Hr): Vital Signs - 24 hr 01/12/24 20:44 01/13/24 00:43 01/13/24 04:12 Temperature 97.8 F Pulse Rate 77 Respiratory Rate 16 18 16 Blood Pressure 135/86 Pulse Oximetry 97 Oxygen Delivery Method Room Air 01/13/24 10:00 Temperature 97.5 F Pulse Rate 65 Respiratory Rate 15 Blood Pressure 145/88 H Pulse Oximetry 98 Oxygen Delivery Method Room Air BMI result Body Mass Index 32.3 Labs 01/09/24 16:56 01/09/24 16:56 Medications Medications Current Medications Acetaminophen (Acetaminophen 325 Mg Tablet) 650 mg PO Q6H PRN PRN Reason: Headache/Pain Mild Scale (1-3) Al Hydroxide/Mg Hydroxide (Magnesium Hydrox/Alum Hydrox 30 Ml Oral.Susp) 30 ml PO Q6H PRN PRN Reason: Heartburn/Nausea Amphetamine/Dextroamphetamine (Dextroamphetamine/Amphetamine Xr 10 Mg Cap.Er.24h) 20 mg PO BID@0800,1300 [facility] Last Admin: 01/13/24 13:06 Dose: 20 mg Aripiprazole (Aripiprazole 20 Mg Tablet) 20 mg PO BEDTIME [facility] Last Admin: 01/12/24 20:44 Dose: 20 mg Bupropion HCl (Bupropion Hcl Xl 300 Mg Tab.Er.24h) 300 mg PO DAILY [facility] Last Admin: 01/13/24 10:03 Dose: 300 mg Clonidine HCl (Clonidine Hcl 0.1 Mg Tablet) 0.1 mg PO BID [facility]; Protocol Last Admin: 01/13/24 10:03 Dose: 0.1 mg Escitalopram Oxalate (Escitalopram Oxalate 20 Mg Tablet) 20 mg PO DAILY [facility] Last Admin: 01/13/24 10:04 Dose: 20 mg Gabapentin (Gabapentin 600 Mg Tablet) 600 mg PO TID [facility] Last Admin: 01/13/24 15:44 Dose: 600 mg Hydroxyzine HCl (Hydroxyzine Hcl 50 Mg Tablet) 50 mg PO TID [facility] Last Admin: 01/13/24 15:44 Dose: 50 mg Hydroxyzine HCl (Hydroxyzine Hcl 25 Mg Tablet) 25 mg PO Q6H PRN PRN Reason: Anxiety Levetiracetam (Levetiracetam 500 Mg Tablet) 500 mg PO BID [facility] Last Admin: 01/13/24 10:04 Dose: Not Given [place] Carbonate ([place] Carbonate Er 300 Mg Tablet.Er) 300 mg PO DAILY [facility] Last Admin: 01/13/24 10:03 Dose: 300 mg Magnesium Hydroxide (Milk Of Magnesia 30 Ml Oral.Susp) 30 ml PO DAILY PRN PRN Reason: Constipation Methadone HCl (Methadone Hcl 20 Mg/2 Ml Oral.Conc) 170 mg PO DAILY [facility] Last Admin: 01/13/24 10:02 Dose: 170 mg Olanzapine (Olanzapine 10 Mg Tablet) 20 mg PO BEDTIME [facility] Last Admin: 01/12/24 20:44 Dose: 20 mg Promethazine HCl (Promethazine Hcl 25 Mg Tablet) 25 mg PO TID PRN PRN Reason: Dyspepsia Last Admin: 01/13/24 17:49 Dose: 25 mg Trazodone HCl (Trazodone Hcl 50 Mg Tablet) 50 mg PO BEDTIME MRX1 PRN PRN Reason: Insomnia Allergies Allergies Allergy/AdvReac Type Severity Reaction Status Date / Time capsaicin AdvReac Severe Burning Verified 01/10/24 07:51 sensation Assessment & Plan Assessment & Plan (1) MDD (major depressive disorder), recurrent episode, moderate: Status: Acute Code(s): F33.1 - Major depressive disorder, recurrent, moderate (2) Opioid use disorder, severe, on maintenance therapy: Status: Acute Code(s): F11.20 - Opioid dependence, uncomplicated (3) Cocaine abuse: Status: Acute Code(s): F14.10 - Cocaine abuse, uncomplicated Plan Patient is a 43 year old male with hx of MDD, cocaine use d/o and opioid use d/o who presented to ER d/t suicidal ideation with plan to overdose on heroin secondary to increased depressive symptoms. Plan: 1. continue tx. stable for discharge Reason for continued inpatient stay Substantial Risk for: stable for discharge Time Spent With Patient Time: Total time managing care of this patient today ____ minutes.
[2024-01-13] MEDS: OLANZapine 10 MG TABLET 20 MG PO (20:59)
[2024-01-13 21:00] VITALS: BP 122/75; PULSE 76; RESP 16; TEMP 36.6
[2024-01-13] MEDS: levETIRAcetam 500 MG TABLET PO (21:00)
[2024-01-13] MEDS: ARIPiprazole 20 MG TABLET PO (21:01)
[2024-01-14 07:50] VITALS: BP 132/81; PULSE 70; RESP 16; TEMP 36.3; O2SAT 98
[2024-01-14] MEDS: methADONE HCl 20 MG/2 ML ORAL.CONC 170 MG PO (08:00)
[2024-01-14] MEDS: Gabapentin 600 MG TABLET PO ×3 (08:02→21:44)
[2024-01-14] MEDS: Lithium Carbonate ER 300 MG TABLET.ER PO (08:02)
[2024-01-14] MEDS: Escitalopram Oxalate 20 MG TABLET PO (08:02)
[2024-01-14] MEDS: buPROPion HCl XL 300 MG TAB.ER.24H PO (08:02)
[2024-01-14] MEDS: cloNIDine HCL 0.1 MG TABLET PO ×2 (08:02→21:44)
[2024-01-14] MEDS: levETIRAcetam 500 MG TABLET PO ×2 (08:02→21:44)
[2024-01-14] MEDS: hydrOXYzine HCL 50 MG TABLET PO ×3 (08:02→21:44)
[2024-01-14] MEDS: Promethazine HCL 25 MG TABLET PO (08:02)
[2024-01-14] MEDS: Dextroamphetamine/Amphetamine XR 10 MG CAP.ER.24H 20 MG PO ×2 (08:02→12:52)
--- NOTE | 2024-01-14 08:47 | P.PNPSI_ITS ---
Subjective Subjective Date of Service: 01/14/24 Reason For Visit: SI substance abuse Subjective Notes: Conditional Voluntary Interim History: Reviewed with Dr. Loredo. active on unit, social with peers. attending groups. Pt reports sleeping well. He reports some depression ; pt stated, I'm hoping I get into some kind of program . denies SI/HI/VH/AH. Medication Compliance: Yes Side effects from medications: No Attending Groups: Yes Review of Systems Constitutional: Reports as per HPI Eyes: Reports as per HPI Reports as per HPI Cardiovascular: Reports as per HPI Respiratory: Reports as per HPI Gastrointestinal: Reports as per HPI Genitourinary: Reports as per HPI Musculoskeletal: Reports as per HPI Skin/Breast: Reports as per HPI Reports as per HPI Psychiatric: Reports as per HPI Endocrine: Reports as per HPI Hematologic/Lymphatic: Reports as per HPI Allergic/Immunologic: Reports as per HPI Mental Status Exam Mental Status Exam Narrative: Pt is alert and oriented; behavior is cooperative and calm; dressed in casual attire; mood is described as depressed ; eye contact appropriate; Speech is normal rate, volume and prosody and not pressured; thought process is organized and goal directed; Thought content is on tx; otherwise pertinent to relevant topics and without any delusional content, paranoid ideations or grandiosity; denies SI/HI/VH/AH. Diagnostics Vital Signs (24Hr): Vital Signs - 24 hr 01/13/24 10:00 01/13/24 21:00 01/14/24 07:50 Temperature 97.5 F 98 F 97.3 F Pulse Rate 65 76 70 Respiratory Rate 15 16 16 Blood Pressure 145/88 H 122/75 132/81 Pulse Oximetry 98 98 Oxygen Delivery Method Room Air Room Air BMI result Body Mass Index 32.3 Labs 01/09/24 16:56 01/09/24 16:56 Medications Medications Current Medications Acetaminophen (Acetaminophen 325 Mg Tablet) 650 mg PO Q6H PRN PRN Reason: Headache/Pain Mild Scale (1-3) Al Hydroxide/Mg Hydroxide (Magnesium Hydrox/Alum Hydrox 30 Ml Oral.Susp) 30 ml PO Q6H PRN PRN Reason: Heartburn/Nausea Amphetamine/Dextroamphetamine (Dextroamphetamine/Amphetamine Xr 10 Mg Cap.Er.24h) 20 mg PO BID@0800,1300 [facility] Last Admin: 01/14/24 08:02 Dose: 20 mg Aripiprazole (Aripiprazole 20 Mg Tablet) 20 mg PO BEDTIME [facility] Last Admin: 01/13/24 21:01 Dose: 20 mg Bupropion HCl (Bupropion Hcl Xl 300 Mg Tab.Er.24h) 300 mg PO DAILY [facility] Last Admin: 01/14/24 08:02 Dose: 300 mg Clonidine HCl (Clonidine Hcl 0.1 Mg Tablet) 0.1 mg PO BID [facility]; Protocol Last Admin: 01/14/24 08:02 Dose: 0.1 mg Escitalopram Oxalate (Escitalopram Oxalate 20 Mg Tablet) 20 mg PO DAILY [facility] Last Admin: 01/14/24 08:02 Dose: 20 mg Gabapentin (Gabapentin 600 Mg Tablet) 600 mg PO TID [facility] Last Admin: 01/14/24 08:02 Dose: 600 mg Hydroxyzine HCl (Hydroxyzine Hcl 50 Mg Tablet) 50 mg PO TID [facility] Last Admin: 01/14/24 08:02 Dose: 50 mg Hydroxyzine HCl (Hydroxyzine Hcl 25 Mg Tablet) 25 mg PO Q6H PRN PRN Reason: Anxiety Levetiracetam (Levetiracetam 500 Mg Tablet) 500 mg PO BID [facility] Last Admin: 01/14/24 08:02 Dose: 500 mg [place] Carbonate ([place] Carbonate Er 300 Mg Tablet.Er) 300 mg PO DAILY [facility] Last Admin: 01/14/24 08:02 Dose: 300 mg Magnesium Hydroxide (Milk Of Magnesia 30 Ml Oral.Susp) 30 ml PO DAILY PRN PRN Reason: Constipation Methadone HCl (Methadone Hcl 20 Mg/2 Ml Oral.Conc) 170 mg PO DAILY [facility] Last Admin: 01/14/24 08:00 Dose: 170 mg Olanzapine (Olanzapine 10 Mg Tablet) 20 mg PO BEDTIME [facility] Last Admin: 01/13/24 20:59 Dose: 20 mg Promethazine HCl (Promethazine Hcl 25 Mg Tablet) 25 mg PO TID PRN PRN Reason: Dyspepsia Last Admin: 01/14/24 08:02 Dose: 25 mg Trazodone HCl (Trazodone Hcl 50 Mg Tablet) 50 mg PO BEDTIME MRX1 PRN PRN Reason: Insomnia Allergies Allergies Allergy/AdvReac Type Severity Reaction Status Date / Time capsaicin AdvReac Severe Burning Verified 01/10/24 07:51 sensation Assessment & Plan Assessment & Plan (1) MDD (major depressive disorder), recurrent episode, moderate: Status: Acute Code(s): F33.1 - Major depressive disorder, recurrent, moderate (2) Opioid use disorder, severe, on maintenance therapy: Status: Acute Code(s): F11.20 - Opioid dependence, uncomplicated (3) Cocaine abuse: Status: Acute Code(s): F14.10 - Cocaine abuse, uncomplicated Plan Patient is a 43 year old male with hx of MDD, cocaine use d/o and opioid use d/o who presented to ER d/t suicidal ideation with plan to overdose on heroin secondary to increased depressive symptoms. Plan: 1. continue tx. stable for discharge 01/13: active on unit, social with peers. attending groups. Pt reports sleeping well. He reports some depression ; pt stated, I'm hoping I get into some kind of program . denies SI/HI/VH/AH. continue current tx plan. Patient educated on: diagnosis, medication risk/benefits, substance abuse and therapeutic strategies Informed Consent: understands Reason for continued inpatient stay Substantial Risk for: med/psych decompensation Time Spent With Patient Time: Total time managing care of this patient today _20___ minutes.
[2024-01-14 20:00] VITALS: BP 136/79; PULSE 79; RESP 16; TEMP 36.6; O2SAT 95
[2024-01-14] MEDS: OLANZapine 10 MG TABLET 20 MG PO (21:43)
[2024-01-14] MEDS: ARIPiprazole 20 MG TABLET PO (21:44)
[2024-01-15 07:45] VITALS: BP 106/67; PULSE 70; RESP 18; TEMP 36.6; O2SAT 98
[2024-01-15] MEDS: Gabapentin 600 MG TABLET PO ×3 (08:22→20:09)
[2024-01-15] MEDS: buPROPion HCl XL 300 MG TAB.ER.24H PO (08:22)
[2024-01-15] MEDS: Escitalopram Oxalate 20 MG TABLET PO (08:22)
[2024-01-15] MEDS: Dextroamphetamine/Amphetamine XR 10 MG CAP.ER.24H 20 MG PO ×2 (08:22→13:05)
[2024-01-15] MEDS: levETIRAcetam 500 MG TABLET PO ×2 (08:22→20:09)
[2024-01-15] MEDS: cloNIDine HCL 0.1 MG TABLET PO ×2 (08:22→20:09)
[2024-01-15] MEDS: Lithium Carbonate ER 300 MG TABLET.ER PO (08:23)
[2024-01-15] MEDS: hydrOXYzine HCL 50 MG TABLET PO ×3 (08:23→20:09)
[2024-01-15] MEDS: methADONE HCl 20 MG/2 ML ORAL.CONC 170 MG PO (08:25)
--- NOTE | 2024-01-15 08:56 | HO.PSYCHPN ---
Subjective Subjective Date of Service: 01/15/24 Reason For Visit: SI substance abuse Subjective Notes: Conditional Voluntary Interim History: Reviewed with Dr. Loredo. laying in bed this morning. pt reports not sleeping well last night, he is unsure why. Pt stated, I'm just worried about everything. I'm hoping I get into a program . denies SI/HI/VH/AH. Medication Compliance: Yes Side effects from medications: No Attending Groups: Intermittent Review of Systems Constitutional: Reports as per HPI Eyes: Reports as per HPI Reports as per HPI Cardiovascular: Reports as per HPI Respiratory: Reports as per HPI Gastrointestinal: Reports as per HPI Genitourinary: Reports as per HPI Musculoskeletal: Reports as per HPI Skin/Breast: Reports as per HPI Reports as per HPI Psychiatric: Reports as per HPI Endocrine: Reports as per HPI Hematologic/Lymphatic: Reports as per HPI Allergic/Immunologic: Reports as per HPI Mental Status Exam Mental Status Exam Narrative: Pt is alert and oriented; behavior is cooperative and calm; dressed in casual attire; mood is described as depressed ; eye contact appropriate; Speech is normal rate, volume and prosody and not pressured; thought process is organized and goal directed; Thought content is on tx; otherwise pertinent to relevant topics and without any delusional content, paranoid ideations or grandiosity; denies SI/HI/VH/AH. Diagnostics Vital Signs (24Hr): Vital Signs - 24 hr 01/14/24 20:00 01/15/24 07:45 Temperature 97.9 F 97.9 F Pulse Rate 79 70 Respiratory Rate 16 18 Blood Pressure 136/79 106/67 Pulse Oximetry 95 98 Oxygen Delivery Method Room Air Room Air BMI result Body Mass Index 32.3 Labs 01/09/24 16:56 01/09/24 16:56 Medications Medications Current Medications Acetaminophen (Acetaminophen 325 Mg Tablet) 650 mg PO Q6H PRN PRN Reason: Headache/Pain Mild Scale (1-3) Al Hydroxide/Mg Hydroxide (Magnesium Hydrox/Alum Hydrox 30 Ml Oral.Susp) 30 ml PO Q6H PRN PRN Reason: Heartburn/Nausea Amphetamine/Dextroamphetamine (Dextroamphetamine/Amphetamine Xr 10 Mg Cap.Er.24h) 20 mg PO BID@0800,1300 [facility] Last Admin: 01/15/24 08:22 Dose: 20 mg Aripiprazole (Aripiprazole 20 Mg Tablet) 20 mg PO BEDTIME [facility] Last Admin: 01/14/24 21:44 Dose: 20 mg Bupropion HCl (Bupropion Hcl Xl 300 Mg Tab.Er.24h) 300 mg PO DAILY [facility] Last Admin: 01/15/24 08:22 Dose: 300 mg Clonidine HCl (Clonidine Hcl 0.1 Mg Tablet) 0.1 mg PO BID [facility]; Protocol Last Admin: 01/15/24 08:22 Dose: 0.1 mg Escitalopram Oxalate (Escitalopram Oxalate 20 Mg Tablet) 20 mg PO DAILY [facility] Last Admin: 01/15/24 08:22 Dose: 20 mg Gabapentin (Gabapentin 600 Mg Tablet) 600 mg PO TID [facility] Last Admin: 01/15/24 08:22 Dose: 600 mg Hydroxyzine HCl (Hydroxyzine Hcl 50 Mg Tablet) 50 mg PO TID [facility] Last Admin: 01/15/24 08:23 Dose: 50 mg Hydroxyzine HCl (Hydroxyzine Hcl 25 Mg Tablet) 25 mg PO Q6H PRN PRN Reason: Anxiety Levetiracetam (Levetiracetam 500 Mg Tablet) 500 mg PO BID [facility] Last Admin: 01/15/24 08:22 Dose: 500 mg [place] Carbonate ([place] Carbonate Er 300 Mg Tablet.Er) 300 mg PO DAILY [facility] Last Admin: 01/15/24 08:23 Dose: 300 mg Magnesium Hydroxide (Milk Of Magnesia 30 Ml Oral.Susp) 30 ml PO DAILY PRN PRN Reason: Constipation Methadone HCl (Methadone Hcl 20 Mg/2 Ml Oral.Conc) 170 mg PO DAILY [facility] Last Admin: 01/15/24 08:25 Dose: 170 mg Olanzapine (Olanzapine 10 Mg Tablet) 20 mg PO BEDTIME [facility] Last Admin: 01/14/24 21:43 Dose: 20 mg Promethazine HCl (Promethazine Hcl 25 Mg Tablet) 25 mg PO TID PRN PRN Reason: Dyspepsia Last Admin: 01/14/24 08:02 Dose: 25 mg Trazodone HCl (Trazodone Hcl 50 Mg Tablet) 50 mg PO BEDTIME MRX1 PRN PRN Reason: Insomnia Allergies Allergies Allergy/AdvReac Type Severity Reaction Status Date / Time capsaicin AdvReac Severe Burning Verified 01/10/24 07:51 sensation Assessment & Plan Assessment & Plan (1) MDD (major depressive disorder), recurrent episode, moderate: Status: Acute Code(s): F33.1 - Major depressive disorder, recurrent, moderate (2) Opioid use disorder, severe, on maintenance therapy: Status: Acute Code(s): F11.20 - Opioid dependence, uncomplicated (3) Cocaine abuse: Status: Acute Code(s): F14.10 - Cocaine abuse, uncomplicated Plan Patient is a 43 year old male with hx of MDD, cocaine use d/o and opioid use d/o who presented to ER d/t suicidal ideation with plan to overdose on heroin secondary to increased depressive symptoms. Plan: 1. continue tx. stable for discharge 01/13: active on unit, social with peers. attending groups. Pt reports sleeping well. He reports some depression ; pt stated, I'm hoping I get into some kind of program . denies SI/HI/VH/AH. continue current tx plan. 01/14: laying in bed this morning. pt reports not sleeping well last night, he is unsure why. Pt stated, I'm just worried about everything. I'm hoping I get into a program . denies SI/HI/VH/AH. Patient educated on: diagnosis and medication risk/benefits Informed Consent: understands Reason for continued inpatient stay Substantial Risk for: med/psych decompensation Time Spent With Patient Time: Total time managing care of this patient today _20___ minutes.
[2024-01-15] MEDS: Promethazine HCL 25 MG TABLET PO ×3 (09:02→20:09)
[2024-01-15 20:00] VITALS: BP 120/75; PULSE 68; RESP 16; TEMP 36.3; O2SAT 97
[2024-01-15] MEDS: OLANZapine 10 MG TABLET 20 MG PO (20:09)
[2024-01-15] MEDS: ARIPiprazole 20 MG TABLET PO (20:09)
[2024-01-16 08:40] VITALS: BP 160/96; PULSE 75; RESP 20; TEMP 36.6; O2SAT 98
[2024-01-16] MEDS: methADONE HCl 20 MG/2 ML ORAL.CONC 170 MG PO (08:42)
[2024-01-16] MEDS: buPROPion HCl XL 300 MG TAB.ER.24H PO (08:44)
[2024-01-16] MEDS: Escitalopram Oxalate 20 MG TABLET PO (08:44)
[2024-01-16] MEDS: Dextroamphetamine/Amphetamine XR 10 MG CAP.ER.24H 20 MG PO ×2 (08:45→13:26)
[2024-01-16] MEDS: Lithium Carbonate ER 300 MG TABLET.ER PO (08:45)
[2024-01-16] MEDS: cloNIDine HCL 0.1 MG TABLET PO ×2 (08:46→19:45)
[2024-01-16] MEDS: hydrOXYzine HCL 50 MG TABLET PO ×3 (08:46→19:43)
[2024-01-16] MEDS: Gabapentin 600 MG TABLET PO ×3 (08:46→19:42)
[2024-01-16] MEDS: levETIRAcetam 500 MG TABLET PO ×2 (08:46→19:43)
[2024-01-16] MEDS: Promethazine HCL 25 MG TABLET PO ×3 (09:03→19:43)
--- NOTE | 2024-01-16 11:25 | PC.NURSE ---
Pt transfered to M5. Pt accepting and happy with transfer. Pt ambulated with steady gait, belongings brought to m5.
--- NOTE | 2024-01-16 11:56 | PC.NURSE ---
Pt transferred from M3 to this floor at 1100 today d/t an issue with another patient on M3. No concerns at this time.
--- NOTE | 2024-01-16 12:52 | P.PNPSI_ITS ---
Subjective Subjective Date of Service: 01/16/24 Reason For Visit: SI substance abuse Subjective Notes: Conditional Voluntary Medical Problems Affecting Mental Status: No Interim History: pt transferred to [facility]5 from [facility] due to another patient issues; he is settling in well on unit. pt denies complaints; reports his mood is stable; he is less worried. He denies problem or side effects of medications. He is working on art project to cope with depression. no SI or Hi. Medication Compliance: Yes Side effects from medications: No Attending Groups: Intermittent Review of Systems Acute medical concerns: No Medical Review of Systems: unchanged Review of Systems Review of Systems Yes all other systems are reviewed and are negative Mental Status Exam Mental Status Exam Patient Appearance: Appropriate Patient Orientation: Person, Place, Time and Situation Level of Consciousness: Awake Patient Behavior: Appropriate Mood Description: Anxious (mild) Affect Description: Appropriate Patient Cognition Impaired: No Ability to Follow Directions: Good Speech Pattern: Clear and Coherent Memory Description: Intact Hallucinations: None Delusions: Not Present Thought Process: Intact and Goal Oriented Thought Content: positive for Intact and positive for Goal Oriented Judgement: Fair Diagnostics Vital Signs (24Hr): Vital Signs - 24 hr 01/15/24 20:00 01/16/24 08:40 Temperature 97.3 F 97.8 F Pulse Rate 68 75 Respiratory Rate 16 20 Blood Pressure 120/75 160/96 H Pulse Oximetry 97 98 Oxygen Delivery Method Room Air Room Air BMI result Body Mass Index 32.3 Labs 01/09/24 16:56 01/09/24 16:56 Medications Medications Current Medications Acetaminophen (Acetaminophen 325 Mg Tablet) 650 mg PO Q6H PRN PRN Reason: Headache/Pain Mild Scale (1-3) Al Hydroxide/Mg Hydroxide (Magnesium Hydrox/Alum Hydrox 30 Ml Oral.Susp) 30 ml PO Q6H PRN PRN Reason: Heartburn/Nausea Amphetamine/Dextroamphetamine (Dextroamphetamine/Amphetamine Xr 10 Mg Cap.Er.24h) 20 mg PO BID@0800,1300 [facility] Last Admin: 01/16/24 08:45 Dose: 20 mg Aripiprazole (Aripiprazole 20 Mg Tablet) 20 mg PO BEDTIME [facility] Last Admin: 01/15/24 20:09 Dose: 20 mg Bupropion HCl (Bupropion Hcl Xl 300 Mg Tab.Er.24h) 300 mg PO DAILY [facility] Last Admin: 01/16/24 08:44 Dose: 300 mg Clonidine HCl (Clonidine Hcl 0.1 Mg Tablet) 0.1 mg PO BID [facility]; Protocol Last Admin: 01/16/24 08:46 Dose: 0.1 mg Escitalopram Oxalate (Escitalopram Oxalate 20 Mg Tablet) 20 mg PO DAILY [facility] Last Admin: 01/16/24 08:44 Dose: 20 mg Gabapentin (Gabapentin 600 Mg Tablet) 600 mg PO TID [facility] Last Admin: 01/16/24 08:46 Dose: 600 mg Hydroxyzine HCl (Hydroxyzine Hcl 50 Mg Tablet) 50 mg PO TID [facility] Last Admin: 01/16/24 08:46 Dose: 50 mg Hydroxyzine HCl (Hydroxyzine Hcl 25 Mg Tablet) 25 mg PO Q6H PRN PRN Reason: Anxiety Levetiracetam (Levetiracetam 500 Mg Tablet) 500 mg PO BID [facility] Last Admin: 01/16/24 08:46 Dose: 500 mg [place] Carbonate ([place] Carbonate Er 300 Mg Tablet.Er) 300 mg PO DAILY [facility] Last Admin: 01/16/24 08:45 Dose: 300 mg Magnesium Hydroxide (Milk Of Magnesia 30 Ml Oral.Susp) 30 ml PO DAILY PRN PRN Reason: Constipation Methadone HCl (Methadone Hcl 20 Mg/2 Ml Oral.Conc) 170 mg PO DAILY [facility] Last Admin: 01/16/24 08:42 Dose: 170 mg Olanzapine (Olanzapine 10 Mg Tablet) 20 mg PO BEDTIME [facility] Last Admin: 01/15/24 20:09 Dose: 20 mg Promethazine HCl (Promethazine Hcl 25 Mg Tablet) 25 mg PO TID PRN PRN Reason: Dyspepsia Last Admin: 01/16/24 09:03 Dose: 25 mg Trazodone HCl (Trazodone Hcl 50 Mg Tablet) 50 mg PO BEDTIME MRX1 PRN PRN Reason: Insomnia Allergies Allergies Allergy/AdvReac Type Severity Reaction Status Date / Time capsaicin AdvReac Severe Burning Verified 01/10/24 07:51 sensation Assessment & Plan Assessment & Plan (1) MDD (major depressive disorder), recurrent episode, moderate: Status: Acute Code(s): F33.1 - Major depressive disorder, recurrent, moderate (2) Opioid use disorder, severe, on maintenance therapy: Status: Acute Code(s): F11.20 - Opioid dependence, uncomplicated (3) Cocaine abuse: Status: Acute Code(s): F14.10 - Cocaine abuse, uncomplicated Plan Patient is a 43 year old male with hx of MDD, cocaine use d/o and opioid use d/o who presented to ER d/t suicidal ideation with plan to overdose on heroin secondary to increased depressive symptoms. Plan: 1. continue tx. stable for discharge 01/13: active on unit, social with peers. attending groups. Pt reports sleeping well. He reports some depression ; pt stated, I'm hoping I get into some kind of program . denies SI/HI/VH/AH. continue current tx plan. 01/14: laying in bed this morning. pt reports not sleeping well last night, he is unsure why. Pt stated, I'm just worried about everything. I'm hoping I get into a program . denies SI/HI/VH/AH. 01/15: Pt less worried; continue tx plan Patient educated on: diagnosis, medication risk/benefits and therapeutic strategies Informed Consent: understands and further education needed Reason for continued inpatient stay Substantial Risk for: inability to function and rapid decompensation Time Spent With Patient Time: Total time managing care of this patient today ____ minutes.
[2024-01-16 16:00] VITALS: RESP 16
[2024-01-16 19:35] VITALS: BP 117/65; PULSE 84; RESP 18; TEMP 36.6; O2SAT 98
[2024-01-16] MEDS: ARIPiprazole 20 MG TABLET PO (19:42)
[2024-01-16] MEDS: OLANZapine 10 MG TABLET 20 MG PO (19:42)
[2024-01-16] MEDS: traZODone HCL 50 MG TABLET PO (19:43)
[2024-01-17 08:25] VITALS: BP 151/83; PULSE 66; RESP 18; TEMP 35.9; O2SAT 99
[2024-01-17] MEDS: methADONE HCl 20 MG/2 ML ORAL.CONC 170 MG PO (08:27)
[2024-01-17] MEDS: Lithium Carbonate ER 300 MG TABLET.ER PO (08:28)
[2024-01-17] MEDS: Dextroamphetamine/Amphetamine XR 10 MG CAP.ER.24H 20 MG PO ×2 (08:28→12:54)
[2024-01-17] MEDS: hydrOXYzine HCL 50 MG TABLET PO ×3 (08:28→20:22)
[2024-01-17] MEDS: cloNIDine HCL 0.1 MG TABLET PO ×2 (08:28→20:22)
[2024-01-17] MEDS: buPROPion HCl XL 300 MG TAB.ER.24H PO (08:28)
[2024-01-17] MEDS: Gabapentin 600 MG TABLET PO ×3 (08:28→20:23)
[2024-01-17] MEDS: Escitalopram Oxalate 20 MG TABLET PO (08:28)
[2024-01-17] MEDS: levETIRAcetam 500 MG TABLET PO ×2 (08:28→20:22)
[2024-01-17] MEDS: Promethazine HCL 25 MG TABLET PO ×3 (08:28→18:38)
--- NOTE | 2024-01-17 09:43 | HO.PSYCHPN ---
Subjective Subjective Date of Service: 01/10/24 Reason For Visit: SI substance abuse Subjective Notes: Conditional Voluntary Interim History: pt reports mood stable. pt denies complaints; less depression; he is less worried. He denies problem or side effects of medications. He is wanting to be discharge and happy to learn he was accepted to a [facility] In [place]. He expresses hope for the future. no SI or Hi. Medication Compliance: Yes Side effects from medications: No Attending Groups: Yes Review of Systems Acute medical concerns: No Medical Review of Systems: unchanged Review of Systems Review of Systems Constitutional : No Weight loss, No Fever, No Chills, No Night Sweats, No Fatigue, No Malaise ENT/Mouth : No Hearing loss, No Ear Pain, No Nasal Congestion, No Sinus Pain, No Hoarseness, No sore throat, No Rhinorrhea, No Swallowing Difficulty Eyes: No Eye Pain, No Swelling, No Redness, No Foreign Body, No Discharge, No Vision Changes Cardiovascular : No Chest Pain, No SOB, No Dyspnea on Exertion, No Orthopnea, No Edema, No Palpitations Respiratory : No Cough, No Sputum, No Wheezing, No Smoke Exposure, No Dyspnea Gastrointestinal : No Nausea, No Vomiting, No Diarrhea, No Constipation, No abdominal Pain, No Hematochezia, No Melena Genitourinary : no irregular bleeding, No Dysuria, No Urinary Frequency, No Hematuria, No Urinary Incontinence, No Urgency, No Flank Pain, No Urinary Flow Changes, No Hesitancy Musculoskeletal : No joint pain, No Myalgias, No Joint Swelling Skin : No Skin Lesions, No rash Neuro : No Weakness, No Numbness, No Paresthesias, No Loss of Consciousness, No Dizziness, No Headache Psych : Complaining of depression, SI, no HI, relapse of substance abuse Heme/Lymph: No Bruising, No Bleeding,No Lymphadenopathy Endocrine : No Polyuria, No Polydipsia, No Temperature Intolerance Yes all other systems are reviewed and are negative Constitutional: Reports as per HPI Eyes: Reports as per HPI Reports as per HPI Cardiovascular: Reports as per HPI Respiratory: Reports as per HPI Gastrointestinal: Reports as per HPI Genitourinary: Reports as per HPI Musculoskeletal: Reports as per HPI Skin/Breast: Reports as per HPI Reports as per HPI Psychiatric: Reports as per HPI Endocrine: Reports as per HPI Hematologic/Lymphatic: Reports as per HPI Allergic/Immunologic: Reports as per HPI Mental Status Exam Mental Status Exam Narrative: Pt is alert and oriented; behavior is cooperative and calm; dressed in casual attire; mood is described as less depressed ; eye contact appropriate; Speech is normal rate, volume and prosody and not pressured; thought process is organized and goal directed; Thought content is on tx; otherwise pertinent to relevant topics and without any delusional content, paranoid ideations or grandiosity; denies SI/HI/VH/AH. Patient Appearance: Appropriate Patient Orientation: Person, Place, Time and Situation Level of Consciousness: Awake Patient Behavior: Appropriate Mood Description: Anxious (mild) Affect Description: Appropriate Patient Cognition Impaired: No Ability to Follow Directions: Good Speech Pattern: Clear and Coherent Memory Description: Intact Judgement: Good Diagnostics Vital Signs (24Hr): Vital Signs - 24 hr 01/16/24 16:00 01/16/24 19:35 01/17/24 08:25 Temperature 97.9 F 96.6 F L Pulse Rate 84 66 Respiratory Rate 16 18 18 Blood Pressure 117/65 151/83 H Pulse Oximetry 98 99 Oxygen Delivery Method Room Air Room Air BMI result Body Mass Index 32.3 Labs 01/09/24 16:56 01/09/24 16:56 Medications Medications Current Medications Acetaminophen (Acetaminophen 325 Mg Tablet) 650 mg PO Q6H PRN PRN Reason: Headache/Pain Mild Scale (1-3) Al Hydroxide/Mg Hydroxide (Magnesium Hydrox/Alum Hydrox 30 Ml Oral.Susp) 30 ml PO Q6H PRN PRN Reason: Heartburn/Nausea Amphetamine/Dextroamphetamine (Dextroamphetamine/Amphetamine Xr 10 Mg Cap.Er.24h) 20 mg PO BID@0800,1300 [facility] Last Admin: 01/17/24 08:28 Dose: 20 mg Aripiprazole (Aripiprazole 20 Mg Tablet) 20 mg PO BEDTIME [facility] Last Admin: 01/16/24 19:42 Dose: 20 mg Bupropion HCl (Bupropion Hcl Xl 300 Mg Tab.Er.24h) 300 mg PO DAILY [facility] Last Admin: 01/17/24 08:28 Dose: 300 mg Clonidine HCl (Clonidine Hcl 0.1 Mg Tablet) 0.1 mg PO BID [facility]; Protocol Last Admin: 01/17/24 08:28 Dose: 0.1 mg Escitalopram Oxalate (Escitalopram Oxalate 20 Mg Tablet) 20 mg PO DAILY [facility] Last Admin: 01/17/24 08:28 Dose: 20 mg Gabapentin (Gabapentin 600 Mg Tablet) 600 mg PO TID [facility] Last Admin: 01/17/24 08:28 Dose: 600 mg Hydroxyzine HCl (Hydroxyzine Hcl 50 Mg Tablet) 50 mg PO TID [facility] Last Admin: 01/17/24 08:28 Dose: 50 mg Hydroxyzine HCl (Hydroxyzine Hcl 25 Mg Tablet) 25 mg PO Q6H PRN PRN Reason: Anxiety Levetiracetam (Levetiracetam 500 Mg Tablet) 500 mg PO BID [facility] Last Admin: 01/17/24 08:28 Dose: 500 mg [place] Carbonate ([place] Carbonate Er 300 Mg Tablet.Er) 300 mg PO DAILY [facility] Last Admin: 01/17/24 08:28 Dose: 300 mg Magnesium Hydroxide (Milk Of Magnesia 30 Ml Oral.Susp) 30 ml PO DAILY PRN PRN Reason: Constipation Methadone HCl (Methadone Hcl 20 Mg/2 Ml Oral.Conc) 170 mg PO DAILY [facility] Last Admin: 01/17/24 08:27 Dose: 170 mg Olanzapine (Olanzapine 10 Mg Tablet) 20 mg PO BEDTIME [facility] Last Admin: 01/16/24 19:42 Dose: 20 mg Promethazine HCl (Promethazine Hcl 25 Mg Tablet) 25 mg PO TID PRN PRN Reason: Dyspepsia Last Admin: 01/17/24 08:28 Dose: 25 mg Trazodone HCl (Trazodone Hcl 50 Mg Tablet) 50 mg PO BEDTIME MRX1 PRN PRN Reason: Insomnia Last Admin: 01/16/24 19:43 Dose: 50 mg Allergies Allergies Allergy/AdvReac Type Severity Reaction Status Date / Time capsaicin AdvReac Severe Burning Verified 01/10/24 07:51 sensation Assessment & Plan Assessment & Plan (1) MDD (major depressive disorder), recurrent episode, moderate: Status: Acute Code(s): F33.1 - Major depressive disorder, recurrent, moderate (2) Opioid use disorder, severe, on maintenance therapy: Status: Acute Code(s): F11.20 - Opioid dependence, uncomplicated (3) Cocaine abuse: Status: Acute Code(s): F14.10 - Cocaine abuse, uncomplicated Plan Patient is a 43 year old male with hx of MDD, cocaine use d/o and opioid use d/o who presented to ER d/t suicidal ideation with plan to overdose on heroin secondary to increased depressive symptoms. Plan: 1. continue tx. stable for discharge 01/13: active on unit, social with peers. attending groups. Pt reports sleeping well. He reports some depression ; pt stated, I'm hoping I get into some kind of program . denies SI/HI/VH/AH. continue current tx plan. 01/14: laying in bed this morning. pt reports not sleeping well last night, he is unsure why. Pt stated, I'm just worried about everything. I'm hoping I get into a program . denies SI/HI/VH/AH. 01/15: Pt less worried; continue tx plan 01/16 pt mood improving ; he expresses ready for d/c looking forward to discharge tomorrow to [facility] Patient educated on: diagnosis, medication risk/benefits, substance abuse and therapeutic strategies Informed Consent: understands Reason for continued inpatient stay Substantial Risk for: rapid decompensation Time Spent With Patient Time: Total time managing care of this patient today __30__ minutes.
[2024-01-17 10:33] VITALS: BMI 38.2
[2024-01-17 20:20] VITALS: BP 141/78; PULSE 80; TEMP 36.4
[2024-01-17] MEDS: ARIPiprazole 20 MG TABLET PO (20:21)
[2024-01-17] MEDS: OLANZapine 10 MG TABLET 20 MG PO (20:22)
[2024-01-18] MEDS: Dextroamphetamine/Amphetamine XR 10 MG CAP.ER.24H 20 MG PO (08:58)
[2024-01-18] MEDS: buPROPion HCl XL 300 MG TAB.ER.24H PO (08:58)
[2024-01-18] MEDS: levETIRAcetam 500 MG TABLET PO (08:58)
[2024-01-18] MEDS: cloNIDine HCL 0.1 MG TABLET PO (08:58)
[2024-01-18] MEDS: Lithium Carbonate ER 300 MG TABLET.ER PO (08:58)
[2024-01-18] MEDS: Escitalopram Oxalate 20 MG TABLET PO (08:58)
[2024-01-18] MEDS: methADONE HCl 20 MG/2 ML ORAL.CONC 170 MG PO (08:58)
[2024-01-18] MEDS: Gabapentin 600 MG TABLET PO (08:58)
[2024-01-18] MEDS: hydrOXYzine HCL 50 MG TABLET PO (08:58)
[2024-01-18 09:10] VITALS: BP 137/78; PULSE 86; RESP 18; TEMP 36.2; O2SAT 97
--- NOTE | 2024-01-18 09:33 | PM.PSYDC ---
DS: Providers Provider Date of Service: 01/18/24 Date of admission: 01/11/24 13:33 Date of discharge: 01/18/24 Primary care physician: Unknown Physician Admitting clinician: Amara Matson Attending physician on admission: Martin Loredo Attending physician on discharge: Mary Alice Talbert Discharging clinician: Mary Alice Talbert DS: Diagnosis Discharge Diagnosis (1) MDD (major depressive disorder), recurrent episode, moderate: Start date: 01/11/24 Start time: 14:00 Status: Acute (2) Opioid use disorder, severe, on maintenance therapy: Start date: 01/11/24 Start time: 14:00 Status: Acute (3) Cocaine abuse: Start date: 01/11/24 Start time: 14:00 Status: Acute DS: Medications Discharge Medications Home Medications: Home Medications Medication Instructions Recorded Confirmed methadone 10 mg/5 mL oral solution 170 mg PO DAILY 02/12/23 01/10/24 escitalopram oxalate 20 mg tablet 20 mg PO DAILY 09/20/23 01/10/24 gabapentin 600 mg tablet 600 mg PO TID 09/20/23 01/09/24 levetiracetam 500 mg tablet 500 mg PO BID 09/20/23 01/09/24 dextroamphetamine-amphetamine 20 1 tab PO BID@0900,1500 10/11/23 01/10/24 mg tablet aripiprazole 20 mg tablet 20 mg PO BEDTIME Insomnia 11/22/23 01/09/24 lithium carbonate 300 mg 300 mg PO DAILY 11/22/23 01/09/24 tablet,extended release bupropion HCl 150 mg tablet,12 hr 150 mg PO BID 01/10/24 01/10/24 sustained-release clonidine HCl 0.1 mg tablet 0.1 mg PO BID 01/10/24 01/10/24 hydroxyzine pamoate 50 mg capsule 50 mg PO TID 01/10/24 01/10/24 olanzapine 20 mg tablet 20 mg PO BEDTIME 01/10/24 01/10/24 Mental Status Exam Mental Status Exam Patient Appearance: Well Grooomed and Appropriate Patient Orientation: Person, Place, Time and Situation Level of Consciousness: Awake Patient Behavior: Appropriate Mood Description: Anxious Affect Description: Anxious Patient Cognition Impaired: No Ability to Follow Directions: Good Speech Pattern: Clear Memory Description: Intact Hallucinations: None Delusions: Not Present Thought Process: Intact Thought Content: positive for Intact Judgement: Fair DS: Summary Hospital Course Hospital Course: 43 year old male with hx of MDD, cocaine use d/o and opioid use d/o who presented to ER d/t suicidal ideation with plan to overdose on heroin secondary to increased depressive symptoms. 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 He expressed feeling hopeful of future and no SI. Time spent discussing smoking cessation with patient: 3 to 10 minutes Status at Discharge Cognitive/behavioral status at discharge: Alert and oriented x 4 . mood stable. expressing hope for future; no SI or HI. no psychosis. medication compliant Functional status at discharge: independent ambulation Overall status at discharge: patient is back to baseline Time Spent with Patient Time attestation: Total time managing care of this patient today _30___ minutes. Discharge Plan Discharge Anticipated Discharge Date/Time: 01/18/24 10:00 Patient Disposition: Home, Self-Care Discharge Diagnosis: Major Depression recurrent moderate, Polysubstance Abuse, Opiate Dependence severe in remission with MAT Referrals: [facility] Placement: [facility] [Other] - 01/18/24 10:30 am () [facility] Referral: Transitions ([place]) [Other] - 1 Week (You are on their wait list; call the above number twice a week to check-in on bed availability and continue to express interest in going to [facility]) Discharge Medications: Continued gabapentin 600 mg tablet 600 mg PO TID levetiracetam 500 mg tablet 500 mg PO BID escitalopram oxalate 20 mg tablet 20 mg PO DAILY aripiprazole 20 mg tablet 20 mg PO BEDTIME lithium carbonate 300 mg tablet extended release 300 mg PO DAILY methadone 10 mg/5 mL Solution 170 mg PO DAILY dextroamphetamine-amphetamine 20 mg tablet 1 tab PO BID@0900,1500 Rx Instructions: once in am, once in afternoon bupropion HCl 150 mg tablet sustained-release 12 hr 150 mg PO BID clonidine HCl 0.1 mg tablet 0.1 mg PO BID hydroxyzine pamoate 50 mg capsule 50 mg PO TID olanzapine 20 mg tablet 20 mg PO BEDTIME Discontinued quetiapine 100 mg tablet 100 mg PO BEDTIME Discharge Orders: Discharge Order (Routine); Ordered 01/18/24 Ordered By: Mary Alice Talbert Activity on Discharge: As tolerated Stand Alone Forms: Patient Portal Discharge page, Community Support Care Plan Goals: continue medications follow up with [facility] continue with aftercare plan Health Concerns: depression maintain abstinence Plan of Treatment: continue medications follow up with [facility] and aftercare plan Assessment: alert and oriented x4 , mood depressed but hopeful, no SI or HI, expresses hope for future. no auditory or visual hallucinations. thoughts clear and linear, speach normal RRP, focused on treatment goals. Discharge Date/Time: 01/18/24 10:29
== END 2024-01-18 10:29 | disposition home or self-care (01) | DRG 751 ==
LOC: HO.ED 01-11 09:37 → HO.PADLT16 01-11 13:38 → HO.PM5 01-16 11:55
PROVIDERS: Admitting Provider Psychiatry & Neurology Psychiatry; Emergency Provider Emergency Medicine; Responsible Provider Registered Nurse; Visit Provider Psychiatry & Neurology Psychiatry
DX: F33.1 Major depressive disorder, recurrent, moderate (principal); R45.851 Suicidal ideations; F11.20 Opioid dependence, uncomplicated; F19.10 Other psychoactive substance abuse, uncomplicated; F14.10 Cocaine abuse, uncomplicated; Z20.822 Contact with and (suspected) exposure to COVID-19; Z59.02 Unsheltered homelessness; Z87.891 Personal history of nicotine dependence; Z79.899 Other long term (current) drug therapy
CPT/HCPCS: 36415; 80048; 80076; 80307; 81001; 85025; 87635; 93005; 99285; S9485

== ENCOUNTER → 2024-01-10 19:15 | Outpatient (BNV) | payer OTHER, SELFPAY | PROVIDERS: Emergency Provider Emergency Medicine; Visit Provider Internal Medicine Cardiovascular Disease | DX: I45.81 Long QT syndrome (principal); I45.10 Unspecified right bundle-branch block | CPT/HCPCS: 93010 ==

== ENCOUNTER → 2024-01-11 13:33 | Outpatient (BNV) | payer OTHER, SELFPAY | PROVIDERS: Admitting Provider Psychiatry & Neurology Psychiatry; Emergency Provider Emergency Medicine; Responsible Provider Registered Nurse; Visit Provider Internal Medicine Cardiovascular Disease | DX: I45.89 Other specified conduction disorders (principal) | CPT/HCPCS: 93010 ==

== ENCOUNTER → 2024-01-11 13:33 | Outpatient (BNV) | payer OTHER, SELFPAY ==
--- NOTE | 2024-01-18 15:54 | ...WebTmpl.AM.PHNO ---
Nursing Note telephone call to [facility] shanice and left message that I wanted to send rx for phenergan 25mg TID at pt request - he was taking while inpatient and found it to be helpful. no answer- left message to please call back. At 329 recieved a message from viet Mckeon that za[facility] Oliva called fro a rx for him. I called theri number 4 times and no answer= no way to leave message. [phone]. t/c to [facility] [phone] - no answer left message asking them to call back [phone]
== END ==
PROVIDERS: Admitting Provider Psychiatry & Neurology Psychiatry; Emergency Provider Emergency Medicine; Responsible Provider Registered Nurse; Visit Provider Registered Nurse
DX: F33.1 Major depressive disorder, recurrent, moderate (principal); F14.10 Cocaine abuse, uncomplicated; F11.20 Opioid dependence, uncomplicated
CPT/HCPCS: 90792; 99231; 99238